=== PATIENT | female | born 1955 | race Caucasian/White ===

== ENCOUNTER 2021-10-19 14:20 | Outpatient (CLI) | payer MEDICARE, SELFPAY ==
[2021-10-23 13:46] LABS: C Reactive Protein* 0.6 mg/dL (0.5-1.0)
== END 2021-10-19 14:21 | disposition home or self-care (01) ==
LOC: LONREF 10-23 13:38
PROVIDERS: PCP Family Medicine; Visit Provider Family Medicine
DX: R51.9 Headache, unspecified (principal); M31.5 Giant cell arteritis with polymyalgia rheumatica; M65.4 Radial styloid tenosynovitis [de Quervain]
CPT/HCPCS: 86140

== ENCOUNTER 2021-11-12 08:05 | Outpatient (CLI) | payer MEDICARE, SELFPAY ==
[2021-11-12 15:33] LABS: Erythrocyte SedimentationRate* 23 mm/hr (2-20)
== END 2021-11-12 08:06 | disposition home or self-care (01) ==
LOC: LONREF 10:05
PROVIDERS: PCP Family Medicine; Visit Provider Family Medicine
DX: M31.6 Other giant cell arteritis (principal)
CPT/HCPCS: 85651

== ENCOUNTER 2021-12-03 16:33 | Outpatient (CLI) | payer MEDICARE, SELFPAY ==
--- OUTSIDE RECORDS SUMMARY | 2021-12-03 11:07 | XMS_ITS | Encounter Summary ---
:1955 Author Organization [facility] Address [address] [place] [address] Care Team Providers Name Role Phone Unavailable Primary Care Provider Unavailable Encounter Details Date Type Department Care Team Description 09/10/2021 Travel Social History Tobacco Use Types Packs/Day Years Used Date Smoking Tobacco: Never Smokeless Tobacco: Never Alcohol Use Standard Drinks/Week Comments Yes 0 (1 standard drink = 0.6 oz pure alcoho l) Sex Assigned at Date Recorded Not on file COVID-19 Exposure Response Date Recorded In the last 10 days, have you been in contact with No / Unsu re 09/10/2021 12:57 PM CDT someone who was confirmed or suspected to have Coronavirus/COVID-19? documented as of this encounter Plan of Treatment Not on filedocumented as of this encounter Visit Diagnoses Not on filedocumented in this encounter
--- OUTSIDE RECORDS SUMMARY | 2021-12-03 11:07 | XMS_ITS | Encounter Summary ---
:1955 Author Organization [facility] Address [address] [place] [address] Care Team Providers Name Role Phone Unknown, Primary Care Provider Unavailable Unknown, Md Unavailable Unavailable Reason for Referral Other (Routine) - Open Specialty Diagnoses / Procedures Referred By Contact Refer red To Contact Diagnoses Giant cell arteritis (HCC) Ruddy Romero MD Procedures AP [facility] MULTIPLE SCLEROSIS [address] [place], [place] [address] Referral ID Status Reason Start Date Expiration Date Visits Requ ested Visits Authorized [id number] Open 04/10/2022 1 1 Reason for Visit Reason Comments Follow up N.O consult follow up. Other (Routine) - Open Specialty Diagnoses / Procedures Referred By Contact Refer red To Contact Diagnoses Giant cell arteritis (HCC) Ruddy Romero MD Procedures AP [place] MULTIPLE SCLEROSIS [address], [place] [address] Referral ID Status Reason Start Date Expiration Date Visits Requ ested Visits Authorized [id number] Open 10/10/2021 1 1 Encounter Details Date Type Department Care Team Description 10/08/2021 Office Visit [facility] Ruddy Romero Giant cell arteritis (HCC) (Primary Dx); Neurology - Trinity Oneal MD Optic neuropathy; [place] ([facility]) [address] Visual field defect; [address] [facility] Polymyalgia rheumatica (HCC); [address] [place], [place] Iron deficiency anemia due t o chronic blood loss; [place] [address] Closed fracture of lower extremity, unsp ecified laterality, initial encounter [id number] Social History Tobacco Use Types Packs/Day Years Used Date Smoking Tobacco: Never Smokeless Tobacco: Never Alcohol Use Standard Drinks/Week Comments Yes 0 (1 standard drink = 0.6 oz pure alcoho l) Sex Assigned at Date Recorded Not on file COVID-19 Exposure Response Date Recorded In the last 10 days, have you been in contact with No / Unsu re 10/08/2021 12:58 PM CDT someone who was confirmed or suspected to have Coronavirus/COVID-19? documented as of this encounter Last Filed Vital Signs Vital Sign Reading Time Taken Comments Blood Pressure 132/62 10/08/2021 2:00 PM CDT Pulse 78 10/08/2021 2:00 PM CDT Temperature - - Respiratory Rate - - Oxygen Saturation - - Inhaled Oxygen Concentration - - Weight - - Height - - Body Mass Index - - documented in this encounter Patient Instructions Patient InstructionsDaoud Domo - 10/08/2021 2:53 PM CDT COVID-19 COVID-19 Vaccination We recommend obtaining a full-dose Moderna shot for future vaccinations. (the Moderna booster is typically a half-dose of compared to the first two vaccinations). BELOW ARE LINKS FOR RESOURCES RELATED TO COVID-19 Monoclonal Antibody Treatment Following a positive COVID-19 infection, monoclonal antibody treatment is recommended. Use of a MS disease modifying therapy qualifies as being immunocompromised. There is a questionnaire that you needto fill out to be eligible for monoclonal antibody treatment. Due to increased demand, you may need to travel to receive treatment. Our clinic has no control over the process and we are unable to administer or schedule monoclonal antibody treatment. [place] Dept of Health: COVID-19 Medication Options (https://www.health.state.[place]/diseases/coronavirus/meds.html) Questionnaire for Monoclonal Antibody Treatment (https://z.[facility]/mnrap) COVID-19 Vaccine/Booster Our office does not have access to vaccines or boosters. We do not administer the vaccinations. Local pharmacies are following CDC guidelines and are not accepting orders from Dr. Romero for an extradose that are more frequent the current CDC recommendations. Find COVID-19 Vaccine Locations in [place] (https://[place].gov/covid19/vaccine/find-vaccine/locations/index.jsp) COVID-19 Testing There are no barrier locations available throughout the formerly [facility], the service is free and doesn't require an appointment. Locations include: [place], [place], [place], [place], [place], [place], [place], [place], [place], [place], [place], [place], [place], [place], [place], [place], [place], [place] and [place] Find COVID-19 Testing Locations in [place] (https://[place].gov/covid19/get-tested/testing-locations/index.jsp) General Recommendations Lifestyle and Diet We recommend regular cardiovascular exercise to the best of your ability and maintaining a healthy weight. We also recommend Mediterranean type diet with plenty of fruits and vegetables, whole grains, vegetable oils, reducing red meat intake, eating fatty fish such as tuna or salmon a couple times perweek, and a low salt diet. For supplementation, we recommend adding Vitamin D, one B complex, and 1-3g of fish oil or flax seed oil daily. Counseled On Exercise & Appropriate Physical Activity Tobacco If you or anyone in your home smokes or uses tobacco, please consider quitting. Call your primary clinic to see how they can help you, or contact [place] Quit Plan at or www.[email or web address].com Counseling on Fall prevention: If you have had a fall in the last year, consider making changes to your home to reduce the risk of falls, such as, removing scatter rugs, clearing your home of clutter, using a night light when up during the night. documented in this encounter Progress Notes Ruddy Romero MD - 10/08/2021 1:45 PM CDT Chief Complaint: Chief Complaint Patient presents with ??? Follow up N.O consult follow up. The patient presents today for N.O. Consult Follow Up - Giant Cell Arteritis HPI Eye Pain 10/08/21: Patient reports minimal symptoms and good control with current prednisone taper protocol No past medical history on file. No past surgical history on file. Current Outpatient Medications: Medication Sig ??? aspirin 81 mg oral chewable tablet Chew 81 mg once daily. ??? atorvastatin (LIPITOR) 20 mg oral tablet Take 20 mg by mouth. at bedtime. ??? cholecalciferol, vitamin D3, 25 mcg, 1000 unit, 25 mcg (1,000 unit) oral tablet Take 25 mcg by mouth once daily. 5000 IU D3 ??? cyanocobalamin, vitamin B-12, 2,000 mcg oral Tab Take by mouth once daily. ??? diphenhydrAMINE (BENADRYL) 25 mg oral capsule Take 25 mg by mouth. ??? furosemide (LASIX) 40 mg oral tablet Take 40 mg by mouth once daily. ??? gatifloxacin (ZYMAR) 0.5 % Opht Drop gatifloxacin 0.5 % eye drops ??? ketorolac 0.5% (ACULAR) 0.5 % Opht ophthalmic (EYE) solution ketorolac 0.5 % eye drops ??? LORazepam (ATIVAN) 1 mg oral tablet lorazepam 1 mg tablet TAKE 1 TABLET BY MOUTH AT BEDTIME NEEDED ??? loteprednol etabonate 0.5% (LOTEMAX) 0.5 % Opht ophthalmic (EYE) suspension loteprednol etabonate 0.5 % eye drops,suspension ??? Magnesium Oxide 250 mg magnesium oral Tab Take 250 mg by mouth Daily. ??? metFORMIN (GLUCOPHAGE) 1,000 mg oral tablet Take 1,000 mg by mouth once daily. ??? multivitamin (CERTAVITE) 18-400 mg-mcg oral tablet Take 1 tablet by mouth once daily. ??? PREDNISONE ORAL Take 17.5 mg by mouth once daily. ??? primidone (MYSOLINE) 50 mg oral tablet every 24 (twenty-four) hours. ??? triamterene-hydrochlorothiazide (DYAZIDE) 37.5-25 mg oral capsule triamterene 37.5 mg-hydrochlorothiazide 25 mg capsule TAKE 1 CAPSULE BY MOUTH DAILY ??? venlafaxine ER (EFFEXOR XR) 150 mg oral extended release tablet 24 HR Take 150 mg by mouth Daily. ??? venlafaxine ER (EFFEXOR XR) 75 mg oral extended release capsule 24 HR venlafaxine ER 75 mg capsule,extended release 24 hr TAKE ONE CAPSULE BY MOUTH DAILY WITH 150MG ??? vit C/E/Zn/coppr/lutein/zeaxan (OCUVITE LUTEIN AND ZEAXANTHIN ORAL) PreserVision AREDS-2 ??? VIT D3-FOLIC TPBM-T4-U1-B12 ORAL Take by mouth. ??? zinc gluconate 50 mg oral tablet Take 50 mg by mouth Daily. Allergies Allergen Reactions ??? Meperidine Nausea ??? Oxycodone-Aspirin Nausea No family history on file. Social History Socioeconomic History ??? Marital status: Spouse name: Not on file ??? Number of children: Not on file ??? Years of education: Not on file ??? Highest education level: Not on file Occupational History ??? Not on file Tobacco Use ??? Smoking status: Never Smoker ??? Smokeless tobacco: Never Used Substance and Sexual Activity ??? Alcohol use: Yes ??? Drug use: Not Currently ??? Sexual activity: Not on file Other Topics Concern ??? Not on file Social History Narrative ??? Not on file Social Determinants of Health Financial Resource Strain: Not on file Food Insecurity: Not on file Transportation Needs: Not on file Physical Activity: Not on file Stress: Not on file Social Connections: Not on file Intimate Partner Violence: Not on file Housing Stability: Not on file Patient Active Problem List Diagnosis ??? Hypertension ??? Temporal headache ??? Polymyalgia rheumatica (HCC) ??? Essential tremor ??? VINCE (generalized anxiety disorder) ??? Insomnia ??? Obesity ??? Thoracic or lumbosacral neuritis or radiculitis, unspecified ??? 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 Giant cell arteritis (HCC) ??? Visual field defect ??? Optic neuropathy ??? Broken leg ROS All others negative. Vitals BP 132/62 (BP Cuff Site: Right arm, BP Cuff Position: Sitting, BP Cuff Size: Regular adult) Pulse 78 Physical Examination Constitutional: Well developed, female in no apparent distress. Neurologic Exam Labs Results for orders placed or performed in visit on 12/17/16 HPV HIGH RISK DNA WITH 16/18 GENOTYPING Specimen: Cervix; Pap Result Value Ref Range HPV HIGH RISK TYPE 16 Negative for HPV type 16. Negative for HPV type 16. HPV HIGH RISK TYPE 18 Negative for HPV type 18. Negative for HPV type 18. HPV OTHER HIGH RISK TYPES Negative for other high risk HPV types. Negative for other high risk HPV types. Assessment/Plan Polymyalgia rheumatica (HCC) Giant cell arteritis is known to be much more common in the presence of polymyalgia rheumatica. Patient took steroids for about 3 years to manage pain symptoms, Patient does not currently notice any daily symptoms. Optic neuropathy OCT 10/08/21: (baseline) 102 microns OD, 83 microns OS - superior nerve damage Macula 10/08/21: signs of early macular degeneration, will continue to monitor. Briefly discussed treatment options of both wet and dry macular degeneration. Visual field defect HVF 10/08/21: slightly diminished field of vision in OS, likely compensated by OD Giant cell arteritis (HCC) Patient presents today for NO consult follow up. Visual field available for review. Patient is currently on 17.5 mg of prednisone qd, onset one week. Most recent sed rate obtained today with levels of 19, indicating good inflammation control. Discussed tapering and monitoring protocol, plan to draw labs 3 weeks after adjusting does down to assess sed rates and CRP levels. Continue taper of 2.5 mg decrease until 15 mg, pending continued sed rate control. After 15 mg, will plan to trial dosing on an every other day dosing schedule, with alternating doses - down 2.5 mg each taper. This will allow adrenal gland function to build in efficacy. Outlined goal to evaluate for the lowest amount of steroids we will need, to continue to manage sed rate - while attempting to reactivate adrenal gland function. We would like to see sed rates continuearound 20-30. When we reach 15 mg of prednisone, explained that side effects from steroids will become gradually less noticeable. NO labs reviewed, essentially normal OCT and HVF. There were early signs that may indicate macular degeneration. Will continue to monitor this. At this time, patient will contact the clinic with new or worsening symptoms that would warrant an additional visit. Patient can pursue virtual visits in the future. Patient instructed to contact with clinic with any additional concerns or guidance on dosing. ?? Plan: - Continue prednisone 17.5 mg daily - with taper as planned, pending sed rate - Monitor CRP, ESR, SPEP and IL-6 (if covered), 3 weeks after every prednisone dose change - MD follow up in 6 months Broken leg Explained that chronic use of steroids will impact healing and recovery time for acute fractures. Time spent on the date of the encounter consisted of activities before, during, and after the encounter as described above with a total time of 45 minutes. I, Franklin Oliveros, am serving as a trained medical appointment clerk to document services personally performed byRuddy Romero MD based on the provider's statements to me. I, Ruddy Romero MD, was physically present and have reviewed and verified the accuracy of this note documented by Franklin Oliveros. Ruddy Romero MD documented in this encounter Miscellaneous Notes Assessment & Plan Note - Franklin Oliveros - 10/08/2021 2:43 PM CDTAssociated Problem(s): Broken leg Explained that chronic use of steroids will impact healing and recovery time for acute fractures. Assessment & Plan Note - Franklin Oliveros - 10/08/2021 2:37 PM CDTAssociated Problem(s): Giant cell arteritis (HCC) Patient presents today for NO consult follow up. Visual field available for review. Patient is currently on 17.5 mg of prednisone qd, onset one week. Most recent sed rate obtained today with levels of 19, indicating good inflammation control. Discussed tapering and monitoring protocol, plan to draw labs 3 weeks after adjusting does down to assess sed rates and CRP levels. Continue taper of 2.5 mg decrease until 15 mg, pending continued sed rate control. After 15 mg, will plan to trial dosing on an every other day dosing schedule, with alternating doses - down 2.5 mg each taper. This will allow adrenal gland function to build in efficacy. Outlined goal to evaluate for the lowest amount of steroids we will need, to continue to manage sed rate - while attempting to reactivate adrenal gland function. We would like to see sed rates continuearound 20-30. When we reach 15 mg of prednisone, explained that side effects from steroids will become gradually less noticeable. NO labs reviewed, essentially normal OCT and HVF. There were early signs that may indicate macular degeneration. Will continue to monitor this. At this time, patient will contact the clinic with new or worsening symptoms that would warrant an additional visit. Patient can pursue virtual visits in the future. Patient instructed to contact with clinic with any additional concerns or guidance on dosing. ?? Plan: - Continue prednisone 17.5 mg daily - with taper as planned, pending sed rate - Monitor CRP, ESR, SPEP and IL-6 (if covered), 3 weeks after every prednisone dose change - MD follow up in 6 months Assessment & Plan Note - Franklin Oliveros - 10/08/2021 2:22 PM CDTAssociated Problem(s): Visual field defect HVF 10/08/21: slightly diminished field of vision in OS, likely compensated by OD Assessment & Plan Note - Franklin Oliveros - 10/08/2021 2:21 PM CDTAssociated Problem(s): Optic neuropathy OCT 10/08/21: (baseline) 102 microns OD, 83 microns OS - superior nerve damage Macula 10/08/21: signs of early macular degeneration, will continue to monitor. Briefly discussed treatment options of both wet and dry macular degeneration. Assessment & Plan Note - Franklin Oliveros - 10/08/2021 2:12 PM CDTAssociated Problem(s): Polymyalgia rheumatica (HCC) Giant cell arteritis is known to be much more common in the presence of polymyalgia rheumatica. Patient took steroids for about 3 years to manage pain symptoms, Patient does not currently notice any daily symptoms. documented in this encounter Plan of Treatment Scheduled Orders Name Type Priority Associated Diagnoses Order S chedule CBC/DIFFERENTIAL WITH Lab Routine Giant cell arteriti s Twice a Year for 2 PLATELET ([facility]) (HCC) Occurrences starting Iron deficiency anemia 10/08 until due to chronic blood 023 loss documented as of this encounter Visit Diagnoses Diagnosis Giant cell arteritis (HCC) - Primary Giant cell arteritis Optic neuropathy Other optic neuritis Visual field defect Visual field defect, unspecified Polymyalgia rheumatica (HCC) Polymyalgia rheumatica Iron deficiency anemia due to chronic bl ood loss Iron deficiency anemia secondary to bloo d loss (chronic) Closed fracture of lower extremity, unsp ecified laterality, initial encounter documented in this encounter Care Teams Tableau Developer Relationship Specialty Start Date End Date Unknown, PCP - General 09/21/21 NO ADDRESS/PHONE/FAX AFFILIATED Unknown, PCP - Primary Care Clinic 09/21/21 NO ADDRESS/PHONE/FAX AFFILIATED documented as of this encounter
--- OUTSIDE RECORDS SUMMARY | 2021-12-03 11:07 | XMS_ITS | Encounter Summary ---
:1955 Author Organization [facility] Address [address] [place] [id number] Care Team Providers Name Role Phone Unknown, Primary Care Provider Unavailable Unknown, Unavailable Unavailable Encounter Details Date Type Department Care Team Description 10/08/2021 Travel Social History Tobacco Use Types Packs/Day [...] Diagnoses Not on filedocumented in this encounter Care Teams Socket Welder Helper Relationship Specialty Start Date End Date Unknown, PCP - General 09/21/21 NO ADDRESS/PHONE/FAX AFFILIATED Unknown, PCP - Primary Care Clinic 09/21/21 NO ADDRESS/PHONE/FAX AFFILIATED documented as of this encounter
--- OUTSIDE RECORDS SUMMARY | 2021-12-03 11:07 | XMS_ITS | Clinical Summary ---
:1955 Author Organization [facility] Address [address] [place] [address] Care Team Providers Name Role Phone Elsewhere, Pcp Primary Care Provider Unavailable Source Comments Patient records contain information from all sites at [facility]. For routine questions regarding patient records, call [phone] during business hours, M-F 8:00 AM - 5:00 PM Central Time. Record requests for emergency care only can be directed to [phone] at any time.[facility] Allergies No known active allergies Medications Medication Sig Dispensed Refills Start Date End Date Status aspirin [address] tablet Take 81 mg by 0 06/30/2015 Active mouth daily. cholecalciferol Take 1 tablet by 0 06/30/2015 Active (VITAMIN D3) 50 mcg mouth daily. (2,000 Unit) tablet diphenhydrAMINE Take 50 mg by 0 Active (BenadryL) 25 mg mouth. capsule diphenhydrAMINE Take 2 capsules 0 03/31/2015 Active (BENADRYL) 25 mg by mouth daily. capsule multivitamin with Take 1 tablet by 0 06/30/2015 Active minerals capsule mouth daily. venlafaxine HCl Take 75 mg by 0 03/31/2015 Active (VENLAFAXINE ORAL) mouth daily. propranoloL (INDERAL Take 1 capsule by 0 05/05/2016 Active LA) 120 mg 24 hr mouth daily. capsule zinc gluconate 50 mg Take 50 mg by 0 Active tablet mouth daily with breakfast. magnesium oxide Take 250 mg by 0 Active (MAG-OX) 250 mg of mouth daily. magnesium tablet SUMAtriptan (IMITREX) Take 1 tablet (50 10 tablet 0 11/22/2021 Active 50 mg tablet mg total) by mouth as needed for migraine. May repeat dose once in 2 hours if migraine is unresolved. Do not exceed 200 mg in 24 hours. ondansetron ODT Dissolve 1 tablet 10 tablet 0 11/22/2021 Active (ZOFRAN-ODT) 4 mg (4 mg total) in disintegrating tablet the mouth every 6 (six) hours as needed for nausea or vomiting. atorvastatin (LIPITOR) Take 20 mg by 0 07/04/2021 Active 20 mg tablet mouth at bedtime. furosemide (LASIX) 40 Take 40 mg by 0 12/12/2020 Active mg tablet mouth daily. metFORMIN (GLUCOPHAGE) Take 1,000 mg by 0 10/18/2020 Active 1,000 mg tablet mouth daily. predniSONE (DELTASONE) Take 40 mg by 0 11/20/2021 Active 20 mg tablet mouth daily. 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 OCT 10/08/21: (baseline) 102 microns OD, 83 m icrons OS - superior nerve damage Macula 10/08/21: signs of early macular degenera tion, will continue to monitor. Briefly discussed treatment options of both wet and dry macular degeneration. 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 Formatting of this note is different fro m the original. Discussed etiology of disease and risks of GCA. Headaches caused by GCA are not often described by patients as the worst of their life. There is also a risk of GCA negatively impacting the optic nerve . Main concern of GCA is irreversible lo ss of vision. Although her biopsy was negative, testing was inadequate as they did not retrieve a sample large enough for proper analysis. At her ED visit, sed ra te was elevated yet normal when correcte d for age. She was also observed to be anemic as well which can contribute to the elevation of the sed rate. CRP is also slightly elevated. In addition, use of st eroids will mask the symptoms of GCA and it will be difficult to assess and formally diagnose GCA at this time. However we will need to presume that this is GCA and treat her as such. ?? She had started a prednisone taper start ing at 60 mg on 07/18/21 and is now on 25 mg. I do not agree with the rate of her taper and will have the patient stay on 25 mg for a longer time. Will monitor labs during her taper, observing for any estefania vations in sed rate and CRP, acute phase reactants in serum protein electrophoresis, and close monitoring of interleukin 6. Labs are appropriate 2 weeks after eac h change in dose of prednisone. At aroun d 20 or 15 mg, will then consider alternating tapering days by 2.5 mg to ease in her adrenal gland production. Patient presents today for NO consult fo llow up. Visual field available for review. Patient is currently on 17.5 mg of prednisone qd, onset one week. Most recent sed rate obtained today with levels of 1 9, indicating good inflammation control. Discussed tapering and monitoring protocol, plan to draw labs 3 weeks after adjusting does down to assess sed rates and CRP levels. Continue taper of 2.5 mg decr ease until 15 mg, pending continued sed rate control. After 15 mg, will plan to trial dosing on an every other day dosing schedule, with alternating doses - down 2.5 each taper. This will allow adrenal gland function to build in efficacy. Outlined goal to evaluate for the lowest amount of steroids we will need, to continue to manage sed rate - while attempting to reactivate adrenal gland function. We would like to see sed rates continue around 20-30. When we reach 15 mg of pre dnisone, explained that side effects from steroids will become gradually less noticeable. NO labs reviewed, essentially normal OCT and HVF. There were early signs that may indicate macular degeneration. Will continue to monitor this. At this time, patient will contact the bryant miller with new or worsening symptoms that would warrant an additional visit. Patient can pursue virtual visits in the future. Patient instructed to contact with bryant miller with any additional concerns or gu idance on dosing. ?? Plan: - Continue prednisone 17.5 mg daily - th taper as planned, pending sed rate - Monitor CRP, ESR, SPEP and IL-6 (if co antonino), 3 weeks after every prednisone dose change - MD follow up in 6 months Last Assessment & Plan: Formatting of this note is different fro m the original. Patient presents today for NO consult fo llow up. Visual field available for review. Patient is currently on 17.5 mg of prednisone qd, onset one week. Most recent sed rate obtained today with levels of 1 9, indicating good inflammation control. Discussed tapering and monitoring protocol, plan to draw labs 3 weeks after adjusting does down to assess sed rates and CRP levels. Continue taper of 2.5 mg decr ease until 15 mg, pending continued sed rate [...] We would like to see sed rates continue around 20-30. When we reach 15 mg of pre dnisone, explained that side effects from steroids will become gradually less noticeable. NO labs reviewed, essentially normal OCT and HVF. There were early signs that may indicate macular degeneration. Will continue to monitor this. At this time, patient will contact the bryant miller with new or worsening symptoms that would warrant an additional visit. Patient can pursue virtual visits in the future. Patient instructed to contact with bryant miller with any additional concerns or gu idance on dosing. ?? Plan: - Continue prednisone 17.5 mg daily - wi th taper as planned, pending sed rate - Monitor CRP, ESR, SPEP and IL-6 (if co antonino), 3 weeks after every prednisone dose change - MD follow up in 6 months Tremor Essential 07/20/2021 COVID-19 Infection 05/15/2020 Polymyalgia Rheumatica 03/31/2015 Hypertension 10/15/2013 Overview: Hypertension (HTN) Chronic Formatting of this note might be differe nt from the original. Formatting of this note might be differe nt from the original. Hypertension (HTN) Chronic Anxiety Generalized Disorder 12/08/2011 Insomnia 08/22/2009 Obesity Unspecified 07/12/2008 Encounters Date Type Specialty Care Team Description 11/21/2021 - Emergency Emergency Medicine Chiquita Hawley, Headache Unspecified 11/22/2021 D.O. (Primary Dx) from Last 3 Months Immunizations Name Administration Dates Next Due PPSV23 11/05/2013 Tdap 09/24/2013, 08/22/2009 Social History Tobacco Use Types Packs/Day Years Used Date Smoking Tobacco: Never Sex Assigned at Date Recorded Not on file Last Filed Vital Signs Vital Sign Reading Time Taken Comments Blood Pressure 121/68 11/22/2021 3:00 AM CDT Pulse 77 02/02/2021 2:47 PM [employer] Temperature 36.3 ??C (97.3 ??F) 11/22/2021 12:45 AM CDT Respiratory Rate 12 11/22/2021 3:00 AM CDT Oxygen Saturation 98% 11/22/2021 1:00 AM CDT Inhaled Oxygen Concentration - - Weight 105 kg (232 lb 9.4 oz) 11/21/2021 11:34 PM CDT Height 177.8 cm (5' 10) 11/21/2021 11:34 PM CDT Body Mass Index 33.37 11/21/2021 11:34 PM CDT Plan of Treatment Health Maintenance Due Date Last Done Comments Bone Density Scan 1955 (Osteoporosis Screen) CT Colonography 1955 Cologuard 1955 FIT 1955 HIV Screening 1955 Mammogram 10/15/2014 10/15/2013, 09/25/2012, 08/13/2011 Pneumococcal vaccine (65+ 11/05/2014 11/05/2013 years) (2 - PCV) Potassium Level 11/05/2014 11/05/2013 Sodium Level 11/05/2014 11/05/2013 Cervical Cancer Screening 10/15/2016 10/15/2013 Creatinine Level 04/19/2017 04/19/2016, 12/12/2015, 08/22/2015, Additional history exists Fasting Glucose for 03/30/2018 03/30/2015, 02/03/2015, Diabetes Screening 11/05/2013, Additional history exists Depression Screening 03/14/2021 (Annual PHQ-2) COVID-19 Vaccine (4 - 08/31/2021 07/06/2021, 08/28/2020, Booster for Moderna series) 07/29/2020 Fall Risk Screen (Annual) 2021 Influenza Vaccine (#1) 2021 01/23/2021, 01/25/2020, 04/08/2019, Additional history exists Office Visit for Blood 02/02/2022 02/02/2021 Pressure Check / Re-check DTaP,Tdap,and Td Vaccines 09/25/2023 09/24/2013, 08/22/2009 (3 - Td or Tdap) Colonoscopy 09/09/2024 09/09/2014 Colorectal Cancer Screening 09/09/2024 Hepatitis C Screening Completed 03/31/2015 Zoster Vaccines Completed 01/16/2018, 10/03/2017 HPV Vaccines Aged Out No longer eligib le based on patient 's age to complete this topic Procedures Procedure Name Priority Date/Time Associated Diagnosis Comme nts C-REACTIVE PROTEIN STAT 11/22/2021 2:07 AM Res ults for this (CRP), S/P CDT procedure are i n the results section. from Last 3 Months Results CRP (C-Reactive Protein) (11/22/2021 2:07 AM CDT) P athologist Signature C-Reactive <3.0 <=8.0 mg/L 11/22/2021 NPRG Protein (CRP), 2:53 AM CDT P Specimen Anatomical Collection Method Collection Time Receive d Time (Source) Location / / Volume Laterality Blood (Blood, 11/22/2021 2:07 AM 11/23/19 2:09 Venous) CDT AM CDT Chiquita Hawley D.O. LAB BLOOD ADD-ON Performing Organization Address City/State/ZIP Code Phon e Number [facility] [address] [place], [place] [address] [facility] 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
--- OUTSIDE RECORDS SUMMARY | 2021-12-03 11:07 | XMS_ITS | Encounter Summary ---
:1955 Author Organization [facility] Address [address] [place] [address] Care Team Providers Name Role Phone Unknown, Primary Care Provider Unavailable Unknown, Md Unavailable Unavailable Reason for Visit Reason Comments Eye Exam Encounter Details Date Type Department Care Team Description 09/10/2021 Ophth Exam [facility] Partial optic atrophy Neurology - [facility] Ce nter of left eye (Primary Center ([facility]) [phone] Dx) [address] [facility] [address] (Work) [place], [place] [phone] (Fax) [phone] Social History Tobacco Use Types Packs/Day Years [...] have Coronavirus/COVID-19? 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
--- OUTSIDE RECORDS SUMMARY | 2021-12-03 11:07 | XMS_ITS | Encounter Summary ---
:1955 Author Organization [facility] Address [address] [place] [address] Care Team Providers Name Role Phone Unavailable Primary Care Provider Unavailable Reason for Referral Other (Routine) - Open Specialty Diagnoses / Procedures Referred By Contact Refer red To Contact Diagnoses Giant cell arteritis (HCC) Ruddy Romero MD Procedures [facility] MULTIPLE SCLEROSIS [address] [place], [place] [address] Referral ID Status Reason Start Date Expiration Date Visits Requ ested Visits Authorized [id number] Open 10/10/2021 1 1 ther (Routine) - Closed Specialty Diagnoses / Procedures Referred By Contact Refer red To Contact Diagnoses Giant cell arteritis (HCC) Ruddy Romero MD Procedures [facility] EYE TEST [address] [place], [place] [address] Referral ID Status Reason Start Date Expiration Date Visits Requ ested Visits Authorized [id number] Closed 09/10/2021 1 1 Reason for Visit Reason Comments Consultation NO Consult: Giant cell arter itisNo symptoms today, previously felt severe headaches locali zed at the mandaeism with associated nausea Fall risk assessment Fall assessment: Patient has had no falls in calendar year Encounter Details Date Type Department Care Team Description 09/10/2021 Office Visit [facility] Ruddy Romero MD [address] [place], [place] [id number] Giant cell arteritis (HCC) (Primary Dx); [facility] - [facility] Visual field defect Center ([facility]) [address] [place] [address] Social History Tobacco Use Types Packs/Day Years Used Date Smoking Tobacco: Never Smokeless Tobacco: Never Tobacco Cessation: Counseling Given: No Alcohol Use Standard Drinks/Week Comments Yes 0 [...] Sign Reading Time Taken Comments Blood Pressure 122/60 09/10/2021 2:04 PM CDT Pulse 68 09/10/2021 2:04 PM CDT Temperature - - Respiratory Rate - - Oxygen Saturation - - Inhaled Oxygen Concentration - - Weight 99.8 kg (220 lb) 09/10/2021 2:04 PM CDT Height 177.8 cm (5' 10) 09/10/2021 2:04 PM CDT Body Mass Index 31.57 09/10/2021 2:04 PM CDT documented in this encounter Progress Notes Ruddy Romero MD - 09/10/2021 1:15 PM CDT Chief Complaint: Chief Complaint Patient presents with Consultation NO Consult: Giant cell arteritis No symptoms today, previously felt severe headaches localized at the mandaeism with associated nausea Fall risk assessment Fall assessment: Patient has had no falls in calendar year The patient presents today for N.O. Consult. HPI On 07/18/21 the patient presented to the ED with severe intermittent right sided occipital extending to bitemporal headaches that had lasted 3 weeks, and vision changes in OD that had lasted for 1 week. Past medical history significant for giant cell arteritis, polymyalgia rheumatica, hypertension. She has a history of migraines, however during only. Other symptoms included nausea, light sensitivity. Symptoms had increased in frequency and was constant 1-2 days prior to her ED visit. Sed rate elevated MR Angio and MRI Brain obtained, and other than observation of lesions community health representative of mild chronic ischemic microvascular disease, the studies were unremarkable. The patient started on prednisone 60 mg daily after her ED visit, now tapered down and she is taking 25 mg daily. Today she is asymptomatic. No past medical history on file. No past surgical history on file. Current Outpatient Medications: Medication Sig aspirin 81 mg oral chewable tablet Chew 81 mg once daily. atorvastatin (LIPITOR) 20 mg oral tablet Take 20 mg by mouth. at bedtime. cholecalciferol, vitamin D3, 25 mcg, 1000 unit, 25 mcg (1,000 unit) oral tablet Take 25 mcg by mouth once daily. 5000 IU D3 cyanocobalamin, vitamin B-12, 2,000 mcg oral Tab Take by mouth once daily. diphenhydrAMINE (BENADRYL) 25 mg oral capsule Take 25 mg by mouth. furosemide (LASIX) 40 mg oral tablet Take 40 mg by mouth once daily. gatifloxacin (ZYMAR) 0.5 % Opht Drop gatifloxacin 0.5 % eye drops ketorolac 0.5% (ACULAR) 0.5 % Opht ophthalmic (EYE) solution ketorolac 0.5 % eye drops LORazepam (ATIVAN) 1 mg oral tablet lorazepam 1 mg tablet TAKE 1 TABLET BY MOUTH AT BEDTIME NEEDED loteprednol etabonate 0.5% (LOTEMAX) 0.5 % Opht ophthalmic (EYE) suspension loteprednol etabonate 0.5 % eye drops,suspension Magnesium Oxide 250 mg magnesium oral Tab Take 250 mg by mouth Daily. metFORMIN (GLUCOPHAGE) 1,000 mg oral tablet Take 1,000 mg by mouth once daily. multivitamin (CERTAVITE) 18-400 mg-mcg oral tablet Take 1 tablet by mouth once daily. PREDNISONE ORAL Take 17.5 mg by mouth once daily. primidone (MYSOLINE) 50 mg oral tablet every 24 (twenty-four) hours. triamterene-hydrochlorothiazide (DYAZIDE) 37.5-25 mg oral capsule triamterene 37.5 mg-hydrochlorothiazide 25 mg capsule TAKE 1 CAPSULE BY MOUTH DAILY venlafaxine ER (EFFEXOR XR) 150 mg oral extended release tablet 24 HR Take 150 mg by mouth Daily. venlafaxine ER (EFFEXOR XR) 75 mg oral extended release capsule 24 HR venlafaxine ER 75 mg capsule,extended release 24 hr TAKE ONE CAPSULE BY MOUTH DAILY WITH 150MG vit C/E/Zn/coppr/lutein/zeaxan (OCUVITE LUTEIN AND ZEAXANTHIN ORAL) PreserVision AREDS-2 VIT D3-FOLIC DLVO-Q9-N9-B12 ORAL Take by mouth. zinc gluconate 50 mg oral tablet Take 50 mg by mouth Daily. Allergies Allergen Reactions Meperidine Nausea Oxycodone-Aspirin Nausea No family history on file. Social History Socioeconomic History Marital status: Spouse name: Not on file Number of children: Not on file Years of education: Not on file Highest education level: Not on file Occupational History Not on file Tobacco Use Smoking status: Never Smokeless tobacco: Never Substance and Sexual Activity Alcohol use: Yes Drug use: Not Currently Sexual activity: Not on file Other Topics Concern Not on file Social History Narrative Not on file Social Determinants of Health Financial Resource Strain: Not on file Food Insecurity: Not on file Transportation Needs: Not on file Physical Activity: Not on file Stress: Not on file Social Connections: Not on file Intimate Partner Violence: Not on file Housing Stability: Not on file Patient Active Problem List Diagnosis Hypertension Temporal headache Polymyalgia rheumatica (HCC) Essential tremor VINCE (generalized anxiety disorder) Insomnia Obesity Thoracic or lumbosacral neuritis or radiculitis, unspecified 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 Vitals BP 122/60 Pulse 68 Ht 5' 10 (1.778 m) Wt 99.8 kg (220 lb) BMI 31.57 kg/m?? Physical Examination Constitutional: Well developed, female in no apparent distress. Neurologic Exam Mental Status Oriented to person, place, and time. Speech: speech is normal Cranial Nerves CN III, IV, Right pupil: Size: 5 mm. Shape: regular. Reactivity: brisk. Consensual response: intact. Left pupil: Size: 5 mm. Shape: regular. Reactivity: brisk. Consensual response: intact. CN V Facial sensation intact. CN VII Facial expression full, symmetric. CN IX, X Palate: symmetric Right gag reflex: normal CN XII Tongue: not atrophic Fasciculations: absent Tongue deviation: none Visual Acuity - OD: 20/20 - OS: 20/25 Tonopen - OD/OS: 14/14 Confrontation Visual Field - Confrontation visual field full to face and finger count - Central red saturation intact - Extraoccular motility, ductions and versions, smooth pursuit, and saccades normal Slit Lamp Exam - OU: Anterior chamber deep and quiet, lens clear, conjunctiva clear, cornea clear, macula normal, no exudates, no pallor, no hemorrhage, no edema. Diminished tear film. Unable to assess lids/lashes. Superior corneal neovascularization. Pseudophakic lenses. - OD: 0.2 cup, optic nerve normal in appearance. - OS: Unable to assess optic nerve. Labs Assessment/Plan Visual field defect Visual Field Assessment 07/23/21: OD inferior temporal defect. OS question lens rim artifact vs inferior arcuate defect. Reliability indices normal. Giant cell arteritis (HCC) Assessment: Discussed etiology of disease and risks of GCA. Headaches caused by GCA are not often described by patients as the worst of their life. There is also a risk of GCA negatively impacting the optic nerve. Main concern of GCA is irreversible loss of vision. Although her biopsy was negative, testing was inadequate as they did not retrieve a sample large enough for proper analysis. At her ED visit, sed rate was elevated yet normal when corrected for age. She was also observed to be anemic as well which can contribute to the elevation of the sed rate. CRP is also slightly elevated. In addition, use of steroids will mask the symptoms of GCA and it will be difficult to assess and formally diagnose GCA atthis time. However we will need to presume that this is GCA and treat her as such. She had started a prednisone taper starting at 60 mg on 07/18/21 and is now on 25 mg. I do not agree with the rate of her taper and will have the patient stay on 25 mg for a longer time. Will monitor labs during her taper, observing for any elevations in sed rate and CRP, acute phase reactants in serum protein electrophoresis, and close monitoring of interleukin 6. Labs are appropriate 2 weeks after each change in dose of prednisone. At around 20 or 15 mg, will then consider alternating tapering days by 2.5 mg to ease in her adrenal gland production. 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 Plan: - Continue prednisone 25 mg daily - Monitor CRP, ESR, SPEP and IL-6 (if covered), 2 weeks after every prednisone dose change - Baseline OCT now - HVF in 1 month Time spent on the date of the encounter consisted of activities before, during, and after the encounter as described above with a total time of 60 minutes. I, Duane Mayers, am serving as a trained medical tech to document services personally performed byRuddy Romero MD based on the provider's statements to me. I, Ruddy Romero MD, was physically present and have reviewed and verified the accuracy of this note documented by Duane Mayers. Ruddy Romero MD documented in this encounter Miscellaneous Notes Assessment & Plan Note - Duane Mayers - 09/10/2021 2:14 PM CDTAssociated Problem(s): Giant cell arteritis (HCC) Assessment: Discussed etiology of disease and risks of GCA. Headaches caused by GCA are not often described by patients as the worst of their life. There is also a risk of GCA negatively impacting the optic nerve. Main concern of GCA is irreversible loss of vision. Although her biopsy was negative, testing was inadequate as they did not retrieve a sample large enough for proper analysis. At her ED visit, sed rate was elevated yet normal when corrected for age. She was also observed to be anemic as well which can contribute to the elevation of the sed rate. CRP is also slightly elevated. In addition, use of steroids will mask the symptoms of GCA and it will be difficult to assess and formally diagnose GCA atthis time. However we will need to presume that this is GCA and treat her as such. She had started a prednisone taper starting at 60 mg on 07/18/21 and is now on 25 mg. I do not agree with the rate of her taper and will have the patient stay on 25 mg for a longer time. Will monitor labs during her taper, observing for any elevations in sed rate and CRP, acute phase reactants in serum protein electrophoresis, and close monitoring of interleukin 6. Labs are appropriate 2 weeks after each change in dose of prednisone. At around 20 or 15 mg, will then consider alternating tapering days by 2.5 mg to ease in her adrenal gland production. 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 Plan: - Continue prednisone 25 mg daily - Monitor CRP, ESR, SPEP and IL-6 (if covered), 2 weeks after every prednisone dose change - Baseline OCT now - HVF in 1 month Assessment & Plan Note - Duane Mayers - 09/10/2021 2:13 PM CDTAssociated Problem(s): Visual field defect Visual Field Assessment 07/23/21: OD inferior temporal defect. OS question lens rim artifact vs inferior arcuate defect. Reliability indices normal. documented in this encounter Plan of Treatment Scheduled Orders Name Type Priority Associated Diagnoses Order S chedule INTERLEUKIN-6, SERUM Lab Routine Giant cell arteritis Every 2 Weeks for 26 ([facility]) ([facility]) Occurrences sta rting 09/10/2021 unti l 09/10/2022 SEDIMENTATION RATE - Lab Routine Giant cell arteritis Every 2 Weeks for 26 [place] ([facility]) ([facility]) Occurre nces starting 09/10/2021 unti l 09/10/2022 C-REACTIVE PROTEIN, QUANT Lab Routine Giant cell alisha ritis Every 2 Weeks for 26 ([facility]) ([facility]) Occurrences sta rting 09/10/2021 unti l 09/10/2022 PROTEIN ELECTROPHORESIS, Lab Routine Giant cell arter itis Every 2 Weeks for 26 SERUM ([facility]) ([facility]) Occurrences starting 09/10/2021 unti l 09/10/2022 documented as of this encounter Visit Diagnoses Diagnosis Giant cell arteritis (HCC) - Primary Giant cell arteritis Visual field defect Visual field defect, unspecified documented in this encounter
--- OUTSIDE RECORDS SUMMARY | 2021-12-03 11:07 | XMS_ITS | Encounter Summary ---
:1955 Author Organization [facility] Address [address] [place] [address] Care Team Providers Name Role Phone Unknown, Primary Care Provider Unavailable Unknown, Md Unavailable Unavailable Reason for Visit Reason Comments Eye Exam Other (Routine) - Closed Specialty Diagnoses / Procedures Referred By Contact Refer red To Contact Diagnoses Giant cell arteritis (HCC) Ruddy Romero MD Procedures [facility] TEST [address] [place] [place], [place] [address] Referral ID Status Reason Start Date Expiration Date Visits Requ ested Visits Authorized [id number] Closed 09/10/2021 1 1 Encounter Details Date Type Department Care Team Description 10/08/2021 Ophth Exam [facility] Mina Arcuate scotoma, left (Primary Dx); Neurology - [facility] Giant cell arteritis (HCC) Center ([facility]) [phone] (Work) [place], [place] [phone] [address] (Fax) [phone] Social History Tobacco Use Types Packs/Day Years [...] this encounter Progress Notes Juli Mina - 10/08/2021 1:00 PM CDT Progress Note Eye Test HVF- raw data found in [facility] documented in this encounter Plan of Treatment Not on filedocumented as of this encounter Visit Diagnoses Diagnosis Arcuate scotoma, left - Primary Giant cell arteritis (HCC) Giant cell arteritis documented in this encounter Care Teams Museum Security Chief Relationship Specialty Start Date End Date Unknown, PCP - General 09/21/21 NO ADDRESS/PHONE/FAX AFFILIATED Unknown, PCP - Primary Care Clinic 09/21/21 NO ADDRESS/PHONE/FAX AFFILIATED documented as of this encounter
--- OUTSIDE RECORDS SUMMARY | 2021-12-03 11:07 | XMS_ITS | Clinical Summary ---
:1955 Author Organization [facility] Address [address] [place] [address] Care Team Providers Name Role Phone Unknown, Md Primary Care Provider Unavailable Unknown, Md Unavailable Unavailable Allergies Active Allergy Reactions Severity Noted Date Comments Meperidine Nausea 12/08/2004 Oxycodone-Aspirin Nausea 12/08/2004 Medications Medication Sig Dispensed Refills Start Date End Date Status atorvastatin (LIPITOR) Take 20 mg by 0 07/04/2021 Active 20 mg oral tablet mouth. at bedtime. diphenhydrAMINE Take 25 mg by 0 Active (BENADRYL) 25 mg oral mouth. capsule furosemide (LASIX) 40 Take 40 mg by 0 06/15/2021 Active mg oral tablet mouth once daily. gatifloxacin (ZYMAR) gatifloxacin 0.5 % 0 Active 0.5 % Opht Drop eye drops ketorolac 0.5% ketorolac 0.5 % 0 Active (ACULAR) 0.5 % Opht eye drops ophthalmic (EYE) solution LORazepam (ATIVAN) 1 lorazepam 1 mg tablet 0 Active mg oral tablet TAKE 1 TABLET BY MOUTH AT BEDTIME NEEDED loteprednol etabonate loteprednol 0 Active 0.5% (LOTEMAX) 0.5 % etabonate 0.5 % Opht ophthalmic (EYE) eye suspension drops,suspension Magnesium Oxide 250 mg Take 250 mg by 0 Active magnesium oral Tab mouth Daily. metFORMIN (GLUCOPHAGE) Take 1,000 mg by 0 08/05/2021 Active 1,000 mg oral tablet mouth once daily. primidone (MYSOLINE) every 24 0 Active 50 mg oral tablet (twenty-four) hours. triamterene-hydrochlor triamterene 37.5 mg-hydrochlorothiazide 25 m g capsule 0 10/03/2020 Active othiazide (DYAZIDE) TAKE 1 CAPSULE BY MOUTH DAILY 37.5-25 mg oral capsule venlafaxine ER Take 150 mg by 0 Active (EFFEXOR XR) 150 mg mouth Daily. oral extended release tablet 24 HR venlafaxine ER venlafaxine ER 75 mg capsule,extended release 24 hr 0 10/18/2020 Active (EFFEXOR XR) 75 mg TAKE ONE CAPSULE BY MOUTH DAILY WITH 150MG oral extended release capsule 24 HR vit PreserVision 0 Active C/E/Zn/coppr/lutein/ze AREDS-2 axan (OCUVITE LUTEIN AND ZEAXANTHIN ORAL) zinc gluconate 50 mg Take 50 mg by 0 Active oral tablet mouth Daily. aspirin 81 mg oral Chew 81 mg once 0 Active chewable tablet daily. cyanocobalamin, Take by mouth once 0 Active vitamin B-12, 2,000 daily. mcg oral Tab VIT D3-FOLIC Take by mouth. 0 Ac tive EQDV-G3-G6-B12 ORAL cholecalciferol, Take 25 mcg by 0 Active vitamin D3, 25 mcg, mouth once daily. 1000 unit, 25 mcg 5000 IU D3 (1,000 unit) oral tablet multivitamin Take 1 tablet by 0 Active (CERTAVITE) 18-400 mouth once daily. mg-mcg oral tablet PREDNISONE ORAL Take 17.5 mg by 0 Active mouth once daily. Active Problems Problem Noted Date Optic neuropathy 10/08/2021 Last Assessment & Plan: Formatting of is note might be different from the original. OCT 10/08/21: (baseline) 102 microns OD, 83 m icrons OS - superior nerve damage Macula 10/08/21: signs of early macular degenera tion, will continue to monitor. Briefly discussed treatment options of both wet and dry macular degeneration. Broken leg 10/08/2021 Last Assessment & Plan: Formatting of is note might be different from the original. Explained that chronic use of steroids w ill impact healing and recovery time for acute fractures. 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 treated at [place] Giant cell arteritis 09/10/2021 Overview: Formatting of this note is dif ferent from the original. Discussed etiology of disease and [...] At this time, patient will contact the c angela with new or worsening symptoms that would [...] in 6 months Last Assessment & Plan: Patient presents today for NO consult fo [...] At this time, patient will contact the c linic with new or worsening symptoms that would [...] - MD follow up in 6 months Visual field defect 09/10/2021 Last Assessment & Plan: Formatting of th is note might be different from the original. HVF 10/08/21: slightly diminished field of vi dulce maria in OS, likely compensated by OD Essential tremor 07/20/2021 Polymyalgia rheumatica 03/31/2015 Last Assessment & Plan: Formatting of th is note might be different from the original. Giant cell arteritis is known to be much more common in the presence of polymyalgia rheumatica. Patient took steroids for about 3 years to manage pain symptoms, Patient does not currently notice any daily symptoms. Hypertension 10/15/2013 Overview: Formatting of this note might be differe nt from the original. Hypertension (HTN) Chronic VINCE (generalized anxiety disorder) 12/08/2011 Insomnia 08/22/2009 Obesity 07/12/2008 Thoracic or lumbosacral neuritis or radiculitis, unspe cified 12/08/2004 Encounters Date Type Specialty Care Team Description 10/08/2021 Office Visit Multiple Sclerosis Ruddy Romero cell arteritis (HCC) (Primary Dx); MD Jm Optic neuropath y; Visual field de fect; Polymyalgia rhe umatica (HCC); Iron deficiency anemia due to chronic blood loss; Closed fracture of lower extremity, unspecified laterality, initial encounter 10/08/2021 Ophth Exam Multiple Sclerosis Juli Mina Arcuate scotoma, left (Primary Dx); Giant cell alisha ritis (HCC) 10/08/2021 Travel 09/10/2021 Ophth Exam Multiple Sclerosis Juli Mina 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) 09/10/2021 Office Visit Multiple Sclerosis Ruddy Romero cell arteritis (HCC) (Primary Dx); MD Jm Visual field defect Juli Mina 09/10/2021 Travel from Last 3 Months Social History Tobacco Use Types Packs/Day Years [...] Mass Index 31.57 09/10/2021 2:04 PM CDT Plan of Treatment Health Maintenance Due Date Last Done Comments Colonoscopy 1955 Dexa Scan 1955 Diabetes Screening 1955 Hepatitis C Screening 1955 Yearly Review of HCD 2006 Mammogram Screening 08/12/2013 08/13/2011, 07/30/2011 Pneumococcal 65+ (2 - PCV) 11/05/2014 11/05/2013 COVID-19 Vaccine (4 - Booster for 08/31/2021 07/06/2021, , Moderna series) 07/29/2020 Influenza Vaccine (#1) 2021 01/23/2021, 04/08/2019, 01/16/2018, Additional history exists Pap Smear 12/06/2021 12/06/2016, 12/06/2016, 12/06/2016 Adult Tetanus Booster 10/03/2023 10/02/2013, 09/24/2013, 08/22/2009 Zoster Vaccine Completed 01/16/2018, 10/03/2017 Insurance Payer Benefit Plan / Subscriber ID Effective Phone Address [facility] OPEN [id number] 2018-Stu [phone] [address] ACCESS/CHOICE nt [phone] [place] [address] Care Teams Cat Driver Relationship Specialty Start Date End Date Unknown, PCP - General 09/21/21 NO ADDRESS/PHONE/FAX AFFILIATED Unknown, PCP - Primary Care Clinic 09/21/21 NO ADDRESS/PHONE/FAX AFFILIATED
--- OUTSIDE RECORDS SUMMARY | 2021-12-03 11:08 | XMS_ITS | Encounter Summary ---
:1955 Author Organization [facility] Address [address] [place] [address] Care Team Providers Name Role Phone Unavailable Primary Care Provider Unavailable Reason for Visit Reason Comments Results [facility] Encounter Details Date Type Department Care Team Description 01/31/2021 Clinical Communication Division of [facility] Gibran Celis Results ([facility]) Internal Medicine, J, MAaronS., R.N. [address] [address] [place], [place] [phone] (Work) [phone] Social History Tobacco Use Types Packs/Day Years Used Date Smoking Tobacco: Never Sex Assigned at Date Recorded Not on file documented as of this encounter Miscellaneous Notes Telephone Encounter - Edie Escalante, RKelly. - 01/31/2021 10:17 AM CST TELEPHONE COMMUNICATION NOTE This was a telephone notification to Ms. Bonilla or to their caregiver to notify them that their PCR test for SARS-CoV-2 (the virus that causes COVID-19) has returned positive. Physician Relations Representative: No Currently Ms. Bonilla has the following symptoms: cough, loss of taste or smell, sore throat, nasalcongestion and headache DATE of symptom onset: 01/24/2021 Since onset, symptoms have improved. RESULTS SARS Coronavirus-2, PCR Date Value Ref Range Status 04/21/2020 Undetected Undetected Final Comment: SARS-CoV-2 RNA absent. This result does not rule out COVID-19 in the patient, as the sensitivity of the test depends on the timing of the specimen collection and quality of the specimen. Result should be correlated with patient's history and clinical presentation. ----ADDITIONAL INFORMATION---- This test was developed and its performance characteristics determined by [facility] in a manner consistent with CLIA requirements. Independent review by the U.S. Food and Drug Administration is pending. Visit the CDC website: https://www.cdc.gov/coronavirus/ for the most recent guidelines on Coronavirus testing. Fact Sheet for Healthcare Providers: (https://www.Panasas/it-mmfiles/ Provider_Fact_Sheet_for_[facility]_COVID-19.pdf) Fact Sheet for Patients: (https://www.Panasas/it-mmfiles/ Patient_Fact_Sheet_for_COVID-19.pdf) SARS-CoV-2 RNA by PCR Date Value Ref Range Status 01/05/2021 Undetected Undetected Final Comment: SARS-CoV-2 RNA absent. This result does not rule out COVID-19 in the patient, as the sensitivity of the test depends on the timing of the specimen collection and the quality of the specimen. Result should be correlated with patient's history and clinical presentation. ----ADDITIONAL INFORMATION---- This RT-PCR test using the shanique SARS-CoV-2 assay ([employer] performed on the shanique 6800/8800 System has received Emergency Use Authorization (EUA) by the U.S. Food and Drug Administration, and is modified from the rib matcher and fitter's instructions with a bridging study. Performance characteristics were verified by [facility] in a manner consistent with CLIA requirements. Fact sheets for this Emergency Use Authorization (EUA) assay can be found at the following links: For Healthcare Providers: https://www.fda.gov/media/277682/download For Patients: https://www.fda.gov/media/519673/download SARS CoV-2 RNA, TMA Date Value Ref Range Status 01/30/2021 Detected (A) Undetected Final Comment: SARS-CoV-2 RNA present. ----ADDITIONAL INFORMATION---- This molecular amplification test was performed using the Aptima SARS-CoV-2 assay ([employer] on the Mosec, Mobile Secretary System under emergency use authorization (EUA) by the U.S. Food and Drug Administration. Fact sheets for this EUA assay can be found at the following links: For Healthcare Providers: https://www.fda.gov/media/404933/download For Patients: https://www.fda.gov/media/992191/download 12/26/2020 Undetected Undetected Final Comment: SARS-CoV-2 RNA absent. This result does not rule out COVID-19 in the patient, as the sensitivity of the test depends on the timing of the specimen collection and the quality of the specimen. Result should be correlated with patient's history and clinical presentation. ----ADDITIONAL INFORMATION---- This molecular amplification test was performed using the Aptima SARS-CoV-2 assay ([employer] on the Austin System under emergency use authorization (EUA) by the U.S. Food and Drug Administration. Fact sheets for this EUA assay can be found at the following links: For Healthcare Providers: https://www.SocialVolt.gov/media/894679/download For Patients: https://www.SocialVolt.gov/media/861045/download 05/14/2020 Detected (A) Undetected Final Comment: SARS-CoV-2 RNA present. ----ADDITIONAL INFORMATION---- This molecular amplification test was performed using the Aptima SARS-CoV-2 assay ([employer] on the Austin System under emergency use authorization (EUA) by the U.S. Food and Drug Administration. Fact sheets for this EUA assay can be found at the following links: For Healthcare Providers: https://www.fda.gov/media/493579/download For Patients: https://www.fda.gov/media/795208/download COVID Risk Scores at the time of this review Care/Risk Scores Risk Factors for Severe Infection w/ COVID-19 3 Monoclonal Antibody Screening Score (MASS) Total Points 6 COVID Antibody Screening Tool (CAST) Total Points 3 ASSESSMENT #1 COVID-19 Infection Isolation Assessment Beginning of isolation (day 0) is: 01/24/2021 The patient may end home isolation when they meet the following criteria: ??? It has been at least 10 days from symptom onset or date of positive test if no symptoms ??? They have been afebrile at least 24 hours without the use of fever reducing medications ??? Their symptoms are improving Monoclonal Antibody Assessment All patients are considered for monoclonal antibody infusion. The patient was informed that if determined eligible, they will be contacted by the monoclonal antibody infusion team. Remote Patient Monitoring Assessment Ms. Bonilla has a monoclonal antibody screening score (MASS) of 3 or greater, but is not eligible for remote patient monitoring due to nearing the end of the recommended isolation period. Symptom Severity Assessment Ms. Bonilla is having mild symptoms that can be managed at home with rest, fluids, acetaminophen, and non-steroidal anti-inflammatory medications as needed. PLAN Disposition/Recommendation: advised to continue self care activities advised to contact primary care provider with questions Response to Education: patient/caller able to teach back Caller agreeable to plan of care: yes The following references were used: Nursing judgement and [facility] workflow Edie Escalante R.N. [place] COVID Care Team [facility] COVID-19 GENERAL INFORMATION If patient develops mild symptoms they can be managed at home with rest, fluids, acetaminophen, and non-steroidal anti-inflammatory medications as needed. Mild symptoms may include fever, chills, cough, fatigue, myalgias, sore throat, runny nose, headache, mild shortness of breath or mild chest pain. Symptom Monitoring and Escalating Care The patient or caregiver was advised to contact their primary care provider if moderate symptoms areworsening and to call 911 or present to the nearest emergency department if symptoms are severe. The patient or caregiver was advised to monitor for the following symptoms: ??? Shortness of breath, trouble breathing, rapid breathing ??? Chest pain ??? Dehydration ??? Lethargy/sleepiness or altered mental status ??? Dizziness ??? Depression/Anxiety/PTSD ??? Vomiting ??? Diarrhea ??? Fever (100.4 F or greater) ??? Generalized Rash (pediatrics) ??? Red eyes/lips (pediatrics) Additional guidance for infants under 12 months: In < 2 months, Fever >= 100.4F (send to ED) 2-12 months, Fever >=101 (notify provider) Hypothermia (notify provider or send to ED) Inconsolable (notify provider or send to ED) Apnea (notify provider or send to ED) Dehydration </= 3 wet diapers in 24 hours (notify provider or send to ED) Isolation and Quarantine Recommendations The patient or caregiver was advised that any asymptomatic family members or close contacts should quarantine and be tested after 3-5 days. Please call the [facility] COVID Triage Line at [phone] schedule these appointments. Any household member who is not fully vaccinated, should be tested 3-5 days after their last close contact. They need to quarantine for 14 days after last close contact, even if the test is negative. Any household family members who have been fully vaccinated, should be tested 3- 5 days after exposure and wear a mask in public indoor settings for 14 days after exposure. They do not need to quarantine as long as the COVID-19 exposure was at least 14 days after their vaccination series was fully completed and they do not have any symptoms of COVID-19. If they develop symptoms, they need to quarantine and be tested for COVID-19. ??? If the patient is a child or adolescent: the patient will need to self- isolate in their own roomas much as possible. ??? If the patient is a younger child or infant with COVID-19 negative caregivers: one caregiver should become the designated caregiver and isolate from other family members as much as possible. If this caregiver continues negative/unknown/asymptomatic, they will need to continue quarantine for 14 days following last day of contact with positive child. ??? Avoid sharing personal household items ??? Clean and disinfect 'high-touch' surfaces daily ??? Wear a facemask when around other people and cover coughs/sneezes ??? Practice good hand hygiene ??? Avoid touching your eyes, nose, and mouth ??? If possible, use separate bathroom from COVID-negative family members. Retesting is NOT recommended by the CDC and Infectious Disease experts. In the majority of cases, itresults in prolonged isolation of patients who continue to shed detectable SARS-CoV-2 RNA but are nolonger infectious. Testing will not be ordered unless required for procedure/surgery/appointment at the discretion of the provider recommending the visit. Those providers will order retesting when required. If the household members/close contacts become unwell, recommend calling the [facility] COVID Triage Line at [phone]. If symptoms are severe, report to local ED. Return to Work or School For patients 18 years and older, we have provided a general work/school excuse letter that the patient may share with a school or employer as documentation of the positive test result and initial isolation recommendations at the bottom of their initial letter. If further documentation is required, thepatient is advised to reach out to their PCP or subspecialists. For pediatric patients or their caregivers, if a school excuse/general work excuse letter is needed it is recommended that they reach out to their PCP or subspecialists. The patient will follow up with their primary care provider for evaluation and return to work assessment if they continue to have symptoms that interfere with work or school or if they do not meet criteria to end home isolation. Additional Information for Reference Vaccination Guidance Patient may receive any dose of a COVID-19 vaccine once they end home isolation if they did not receive MAB. If they receive MAB infusion, they should wait 90 days before receiving any dose of a COVID-19 vaccine. As we enter flu season, it is also important to make sure that your patient and other family membersreceive their influenza (flu) vaccine as well. They may receive the flu vaccine at any time after completing their isolation period, including those who received the MAb infusion. [facility] will be offeringinfluenza vaccination appointments this fall, but they can also go to community sites for this important vaccination. Upcoming Appointments If any clinic appointments are scheduled in the next 20 days, the patient should contact their care teams for guidance on whether these appointments should be rescheduled. COVID Infection Flag The COVID infection flag in the Radha Chart will 20 days from the date of the Sars-CoV-2 PCR. Patients with ongoing symptoms beyond 20 days should remain in isolation and follow up with their care teams regarding the need to reschedule any appointments. If a provider assesses the patient and determines that they may end home isolation prior to the 20 days, the provider may resolve the COVID infection flag, at which time the patient may return to [facility] for on site appointments. [email or web address] HER CLEANER Telephone Encounter - Gibran Celis M.S., R.N. - 01/31/2021 8:57 AM LEATHER CLEANER This was the first attempt to call the patient regarding a positive COVID-19 test. Please connect patient with the machine operator at [phone] and have them ask to be connected to pager [phone] to be connected with the COVID-19 Care Team. Please route questions about isolations and guidelines to the following in basket: P [facility] COVID-19 Positive. HER CLEANER documented in this encounter Plan of Treatment Not on filedocumented as of this encounter Visit Diagnoses Not on filedocumented in this encounter Additional Health Concerns Infection Onset Date Last Indicated Resolved Time COVID19 01/30/2021 01/30/2021 02/19/2021 5:07 AM LEATHER CLEANER Assessment Noted Time PHQ-9 Depression Total Score: 2 07/15/2014 11:54 AM CD T documented as of this encounter
--- OUTSIDE RECORDS SUMMARY | 2021-12-03 11:08 | XMS_ITS | Encounter Summary ---
:1955 Author Organization [facility] Address [address] [place] [address] Care Team Providers Name Role Phone Unavailable Primary Care Provider Unavailable Encounter Details Date Type Department Care Team Description 12/26/2020 Admin Visit Urgent Care, [facility], in [place], [place] [address] [place], [place] [phone] Social History Tobacco Use Types Packs/Day Years Used Date Smoking Tobacco: Never Sex Assigned at Date Recorded Not on file documented as of this encounter Plan of Treatment Not on filedocumented as of this encounter Visit Diagnoses Not on filedocumented in this encounter Additional Health Concerns Infection Onset Date Last Indicated Resolved Time COVID19 Pending 12/26/2020 12/26/2020 12/27/2020 1:21 PM CDT Assessment Noted Time PHQ-9 Depression Total Score: 2 07/15/2014 11:54 AM CD T documented as of this encounter
--- OUTSIDE RECORDS SUMMARY | 2021-12-03 11:08 | XMS_ITS | Encounter Summary ---
:1955 Author Organization [facility] Address [address] [place] [address] Care Team Providers Name Role Phone Unavailable Primary Care Provider Unavailable Encounter Details Date Type Department Care Team Description 04/21/2020 Admin Visit Department of Family Medicine in [place] [phone] Social History Tobacco Use Types Packs/Day Years Used Date Smoking Tobacco: Never Sex Assigned at Date Recorded Not on file documented as of this encounter Plan of Treatment Not on filedocumented as of this encounter Visit Diagnoses Not on filedocumented in this encounter Additional Health Concerns Infection Onset Date Last Indicated Resolved Time COVID19 Pending 04/21/2020 04/21/2020 04/21/2020 2:23 PM 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
--- OUTSIDE RECORDS SUMMARY | 2021-12-03 11:08 | XMS_ITS | Encounter Summary ---
:1955 Author Organization [facility] Address [address] [place] [address] Care Team Providers Name Role Phone Unavailable Primary Care Provider Unavailable Reason for Visit Reason Onset Date Comments Testing For Upper Respiratory Virus Symptoms 12/26/2020 Encounter Details Date Type Department Care Team Description 12/26/2020 External Outreach Department of Ge[facility] Cordero ntact With [facility] in [facility], (Suspected) Exposure [place], [place] C.N.P., D.N.P. To COVID-19 (Primary [address]) [place] [address] [place], [place] [phone] Social History Tobacco Use Types Packs/Day Years Used Date Smoking Tobacco: Never Sex Assigned at Date Recorded Not on file documented as of this encounter Progress Notes Aydin Theodore RAaronN. - 12/26/2020 10:22 AM CDT Encounter created for symptomatic infectious disease screening with possible COVID, Influenza, RSV, and/or Group A Strep testing. documented in this encounter Plan of Treatment Not on filedocumented as of this encounter Procedures Procedure Name Priority Date/Time Associated Diagnosis Comme nts SARS CORONAVIRUS-2 Routine 12/26/2020 2:08 PM Contact With And Results for this RNA, V CDT (Suspected) Exposure procedu re are in To COVID-19 the results section. documented in this encounter Results SARS Coronavirus-2 RNA, V Symptomatic (12/26/2020 2:08 PM CDT) [facility] Method Time Signature SARS-CoV-2 Swab, 12/27/2020 MKTO Specimen Nasopharynx 1:20 PM CDT Source SARS CoV-2 Undetected Undetected 12/27/2020 MKTO RNA, TMA 1:20 PM CDT Comment: SARS-CoV-2 RNA absent. This result does not rule out COVID-19 in the patient, as the sensitivity of the test depends o n the timing of the specimen collection and the quality of the specim en. Result should be correlated with patient's history and clinical presentat ion. ----ADDITIONAL INFORMATION---- This molecular amplification test was pe rformed using the Aptima SARS-CoV-2 assay ([employer] on the Rosums tem under emergency use authorization (EUA) by the U.S. Food and Drug Administ ration. Fact sheets for this EUA assay can be fo und at the following links: For Healthcare Providers: https://www.Mapidy a.gov/media/138491/download For Patients: https://www.fda.gov/media/ 336141/download Specimen Anatomical Collection Method Collection Time Receive d Time (Source) Location / / Volume Laterality Varies 12/26/2020 2:08 PM 5:19 (Nasopharynx) CDT PM CDT Radha Rg APRN.N.P., D.N.P. LAB MICROBIOLOGY - GENERAL ORDERABLES Performing Organization Address City/State/ZIP Code Phon e Number [facility]- [address] [place] [id number] [place] [address] [address] documented in this encounter Visit Diagnoses Diagnosis Contact With And (Suspected) Exposure To COVID-19 - Primary documented in this encounter Additional Health Concerns Infection Onset Date Last Indicated Resolved Time COVID19 Pending 12/26/2020 12/26/2020 12/27/2020 1:21 PM CDT Assessment Noted Time PHQ-9 Depression Total Score: 2 07/15/2014 11:54 AM CD T documented as of this encounter
--- OUTSIDE RECORDS SUMMARY | 2021-12-03 11:08 | XMS_ITS | Encounter Summary ---
:1955 Author Organization [facility] Address [address] [place] [address] Care Team Providers Name Role Phone Unavailable Primary Care Provider Unavailable Encounter Details Date Type Department Care Team Description 01/05/2016 Hospital Encounter HX [facility] Galilea Hamm M.D . Social History Tobacco Use Types Packs/Day Years Used Date Smoking Tobacco: Never Assessed Sex Assigned at Date Recorded Not on file documented as of this encounter Last Filed Vital Signs Vital Sign Reading Time Taken Comments Blood Pressure - - Pulse - - Temperature - - Respiratory Rate - - Oxygen Saturation - - Inhaled Oxygen Concentration - - Weight - - Height 176 cm (5' 9.29) 01/05/2016 2:58 PM CDT Body Mass Index - - documented in this encounter Medications at Time of Discharge Medication Sig Dispensed Refills Start Date End Date aspirin [address] tablet Take 81 mg by mouth 0 daily. cholecalciferol (VITAMIN Take 1 tablet by 0 06/29 D3) 50 mcg (2,000 Unit) mouth daily. tablet diphenhydrAMINE (BENADRYL) Take 2 capsules by 0 0 03/31/2015 25 mg capsule mouth daily. multivitamin with minerals Take 1 tablet by 0 capsule mouth daily. venlafaxine HCl Take 75 mg by mouth 0 03/31/2015 (VENLAFAXINE ORAL) daily. documented as of this encounter Miscellaneous Notes Miscellaneous - Kellie Montelongo APRN, C.N.P. - 01/06/2016 6:27 AM CDT DISREGARD Message about labs Document Contains Addenda Addendum by KHRIS MOORE CMA on January 07, 2016 13:54:09 CDT From: KHRIS MOORE CMA To: KELLIE MONTELONGO CORRECTIONS NURSE; Sent: 01/07/2016 13:54:09 CDT Subject: FW: DISREGARD Message about labs Addendum by CITLALI FELIX LPN on January 07, 2016 13:24 CDT Patient returned call and informed of message below. Patient verbalized understanding. She notes that she will increase iron rich food intake and recheck in 1 month. No further questions at this time. Addendum by KHRIS MOORE ARMATURE TESTER on January 07, 2016 08:42:11 CDT LMTCB From: KELLIE MONTELONGO CORRECTIONS NURSE To: KHRIS MOORE CMA; Sent: 01/06/2016 06:27:49 CDT ! Subject: DISREGARD Message about labs Disregard my message about labs. I was misinformed that they did not have the correct tube, however,her B12 and folate results are back. The results showed no deficiencies or thyroid problems. thus the increased size of RBC's is likely due to her methotrexate. It is difficult to know about iron deficiency as that is typically determined by the RBC size and color, which has been altered by her medication. The best way to know would be to do another draw for a pathologist to review it on a slide. Or she could try just increasing her dietary iron intake (not an iron supplement, just diet) and seeing if her anemia improves at the 1 month check. I'm assuming the fatigue is likely due to her acute illness on top of her chronic illness, and should improve over the next few weeks. Have her stay in close contact with updates and concerns so we canmanage accordingly. Thank you! SHERRY Source: [facility] POWERCHART Document Id: [id number] documented in this encounter Plan of Treatment Not on filedocumented as of this encounter Procedures Procedure Name Priority Date/Time Associated Diagnosis Comme nts THYROID-STIMULATING Routine 01/05/2016 3:05 PM Re sults for this HORMONE-SENSITIVE CDT procedure are in (S-TSH) the results section. FOLATE, S Routine 01/05/2016 3:05 PM Results f or this CDT procedure are i n the results section. VITAMIN B12 ASSAY, Routine 01/05/2016 3:05 PM Res ults for this S CDT procedure are i n the results section. documented in this encounter Results Folate (01/05/2016 3:05 PM CDT) athologist Signature Folate, S >20.0 >=4.6 NGML POWERCHART Comment: Biotin has been [facility] the [facility] as a potential interfering substance. Higher concentrations of biotin may be found in multivitamins, hair/nail supplements, and workout supplements. If the result does not match clinical observat ions, repeat testing after patient refrains from the use of supplements for at least 12 hours. Specimen (Source) Anatomical Collection Method Collection Time Re ceived Time Location / / Volume Laterality Blood 01/05/2016 3:05 PM CDT Kellie Montelongo APRN, Radha.N.P., R.N. LAB BLOOD ADD-ON Performing Organization Address City/[facility] Code Phon e Number POWERCHART Thyroid-Stimulating Hormone-Sensitive (s-TSH) (01/05/2016 3:05 PM CDT) athologist [facility] TSH 0.58 0.27 - 4.20 POWERCHART (Thyrotropin) MIUL Comment: Biotin has been identified by the [facility] as a potential interfering substance. Higher concentrations of biotin may be found in multivitamins, hair/nail supplements, and workout supplements. If the result does not match clinical observat ions, repeat testing after patient refrains from the use of supplements for at least 12 hours. Specimen (Source) Anatomical Collection Method Collection Time Re ceived Time Location / / Volume Laterality Blood 01/05/2016 3:05 PM CDT Kellie Montelongo APRN, Radha.N.P., R.N. LAB BLOOD ADD-ON Performing Organization Address City/State/ZIP Code Phon e Number POWERCHART (ABNORMAL) Vitamin B12 Assay (01/05/2016 3:05 PM CDT) athologist [facility] Vitamin B12 1036 (H) 211 - 946 POWERCHART Assay, S PGML Comment: Biotin has been identified by the [facility] as a potential interfering substance. Higher concentrations of biotin may be found in multivitamins, hair/nail supplements, and workout supplements. If the result does not match clinical observat ions, repeat testing after patient refrains from the use of supplements for at least 12 hours. Specimen (Source) Anatomical Collection Method Collection Time Re ceived Time Location / / Volume Laterality Blood 01/05/2016 3:05 PM CDT Kellie Montelongo APRN, C.N.P., R.N. LAB BLOOD ADD-ON Performing Organization Address City/State/ZIP Code Phon e Number POWERCHART documented in this encounter Visit Diagnoses Not on filedocumented in this encounter Additional Health Concerns Assessment Noted Time PHQ-9 Depression Total Score: 2 07/15/2014 11:54 AM CD T documented as of this encounter
--- OUTSIDE RECORDS SUMMARY | 2021-12-03 11:08 | XMS_ITS | Encounter Summary ---
:1955 Author Organization [facility] Address [address] [place] [address] Care Team Providers Name Role Phone Unavailable Primary Care Provider Unavailable Reason for Visit Reason Onset Date Comments Testing For Upper Respiratory Virus Symptoms 01/05/2021 Encounter Details Date Type Department Care Team Description 01/05/2021 External Outreach Department of Family Marlee, Patricia Mathis, Contact With And Medicine in [facility], C.N.P., (Suspected) Exposure [place], [place] D.N.P. To COVID-19 (Primary [address] Dx) [place] [phone] Social History Tobacco Use Types Packs/Day Years Used Date Smoking Tobacco: Never Sex Assigned at Date Recorded Not on file documented as of this encounter Progress Notes Aydin Theodore RTrino - 01/05/2021 9:53 AM CDT Encounter created for symptomatic infectious disease screening with possible COVID, Influenza, RSV, and/or Group A Strep testing. documented in this encounter Plan of Treatment Not on filedocumented as of this encounter Procedures Procedure Name Priority Date/Time Associated Comments Diagnosis SARS CORONAVIRUS 2 Routine 01/05/2021 3:45 PM Res ults for this PCR DETECT, V CDT procedure are in the results section. documented in this encounter Results SARS Coronavirus 2 PCR Detect, V (01/05/2021 3:45 PM CDT) [facility] Method Time Signature SARS-CoV-2 Nasopharynx 01/07/2021 [facility] Specimen 2:02 AM CDT Source SARS-CoV-2 Undetected Undetected 01/07/2021 [facility] RNA by PCR 2:02 AM CDT Comment: SARS-CoV-2 RNA absent. This result does not rule out COVID-19 in the patient, as the sensitivity of the test depends o n the timing of the specimen collection and the quality of the specim en. Result should be correlated with patient's history and clinical presentat ion. ----ADDITIONAL INFORMATION---- This RT-PCR test using the shanique SARS-Co V-2 assay ([employer] performed on the shanique [address] has received Emergency Use Authorization (EUA) by the U.S. Food and Drug Administration, and is modified from the human resources trainee's instructions wit h a bridging study. Performance characteristics were verified by [facility] inic in a manner consistent with CLIA requirements. Fact sheets for this Emergency Use Autho rization (EUA) assay can be found at the following links: For Healthcare Providers: https://www.Ticketbis a.gov/media/023580/download For Patients: https://www.fda.gov/media/ 406400/download Specimen (Source) Anatomical Collection Method Collection Time Re ceived Time Location / / Volume Laterality Varies 01/05/2021 3:45 PM CDT Narrative [facility] SUPPORT EDNAE R - 01/07/2021 2:02 AM CDT Specimen Information: Specimen ID: [id number] Specimen Type: Varies Specimen Collection Start Date: ??3:46 PM Specimen ID: [id number] Specimen Type: Varies Specimen Collection Start Date: ??3:45 PM Specimen Received Date: 01/06/2021 ??9: 16 PM Patricia Whalen APRN, C.N.P., D.N.P. LAB MICROBIOLOGY - GENERAL ORDERABLES Performing Organization Address City/State/ZIP Code Phon e Number [facility] [address] [place] [id number] [facility] [place] [address] Laboratory Medicine and Pathology [address] [place] documented in this encounter Visit Diagnoses Diagnosis Contact With And (Suspected) Exposure To COVID-19 - Primary documented in this encounter Additional Health Concerns Infection Onset Date Last Indicated Resolved Time COVID19 Pending 01/05/2021 01/05/2021 01/05/2021 4:41 PM CDT Assessment Noted Time PHQ-9 Depression Total Score: 2 07/15/2014 11:54 AM CD T documented as of this encounter
--- OUTSIDE RECORDS SUMMARY | 2021-12-03 11:08 | XMS_ITS | Encounter Summary ---
:1955 Author Organization [facility] Address [address] [place] [address] Care Team Providers Name Role Phone Unavailable Primary Care Provider Unavailable Encounter Details Date Type Department Care Team Description 10/12/2015 Hospital Encounter HX NO MAPPING Danielle Rodrigez, GABY, C.N.P. [address] [place], [place] [phone] (Wo rk) Social History Tobacco Use Types Packs/Day Years Used Date Smoking Tobacco: Never Assessed Sex Assigned at Date Recorded Not on file documented as of this encounter Medications at Time of Discharge [...] of this encounter Miscellaneous Notes Miscellaneous - Conversion, Historical Provider Ser - 10/12/2015 11:59 PM CDT Coding Summary-Paper Based CODING DATE: 10/24/2015 FINAL [facility] STATUS: * Discharged to Home or Self Care PAYOR: [employer] ADMIT DX: REASON FOR VISIT DX: FINAL DX: PRINCIPAL: J02.9 Acute pharyngitis, unspecified SECONDARY: PROCEDURES DOCTOR NAME DATE NOTE: The code number assigned matches the documented diagnosis and / or procedure in the patient's chart. However, the narrative phrase printed from the coding software may appear abbreviated, or result in slightly different terminology. Coded By: SHARIF LIMA Date Saved: 10/24/2015 10:58 am Source: [facility] [employer] Document Id: [id number] documented in this encounter Plan of Treatment Not on filedocumented as of this encounter Visit Diagnoses Not on filedocumented in this encounter Additional Health Concerns Assessment Noted Time PHQ-9 Depression Total Score: 2 07/15/2014 11:54 AM CD T documented as of this encounter
--- OUTSIDE RECORDS SUMMARY | 2021-12-03 11:08 | XMS_ITS | Encounter Summary ---
:1955 Author Organization [facility] Address [address] [place] [address] Care Team Providers Name Role Phone Unavailable Primary Care Provider Unavailable Encounter Details Date Type Department Care Team Description 10/12/2015 Hospital Encounter [facility] Marcos Amato APRN, C.N.P. [address] [place] [address] (Wo rk) Social History Tobacco Use Types Packs/Day Years Used Date Smoking Tobacco: Never Assessed Sex Assigned at Date Recorded Not on file documented as of this encounter Last Filed Vital Signs Vital Sign Reading Time Taken Comments Blood Pressure - - Pulse 75 10/12/2015 11:50 AM CDT Temperature - - Respiratory Rate - - Oxygen Saturation - - Inhaled Oxygen Concentration - - Weight - - Height 176 cm (5' 9.29) 10/12/2015 11:50 AM CDT Body Mass Index - - documented [...] ORAL) daily. documented as of this encounter Progress Notes Danielle Amato APRN, C.N.P. - 10/12/2015 11:12 AM CDT [id number] [facility] CHIEF COMPLAINT/REASON FOR VISIT Cough and sore throat. HISTORY OF PRESENT ILLNESS This pleasant, 59-year-old female presents to clinic today with onset of a sore throat over the past5 days, initially with laryngitis, now her voice has returned. She has been coughing continuously. The cough is becoming more forceful and keeping her awake at night. It is turning more into a head cold now with head congestion, postnasal drip and persistent cough. Presents today for further evaluation. MEDICATIONS Benadryl for her current symptoms, without relief of symptoms. NyQuil for her current symptoms without relief of symptoms. Aspirin. Calcium. Magnesium. Zinc. Effexor. Folic acid. Inderal. Methotrexate. Prednisone 3 mg daily. Prempro. Primidone. Super B complex. <__IM_1: BLANK 01:16__> topical cream. Triamterene/hydrochlorothiazide. Vitamin D3. Zantac. ALLERGIES No known medication allergies. SYSTEMS REVIEW No fever, no nausea, no vomiting. No diarrhea. No rash. No shortness of breath. The patient does notnotice wheezing. She reports her has said that she has been wheezing. No chest pain. PAST MEDICAL/SURGICAL HISTORY Anxiety. Chronic pain syndrome. Headache. Hypertension. Polymyalgia rheumatica. Essential tremor of the left hand. SOCIAL HISTORY She has her grandchildren coming over and is concerned about the possibility of contagiousness. VITAL SIGNS Temperature is 37, pulse is 75, O2 sats 95%. Height is 176 cm. PHYSICAL EXAMINATION GENERAL: Exam reveals a pleasant, 59-year-old female with persistent cough. SKIN: Generally is warm, dry and intact. Afebrile at 37 degrees Celsius. No evidence of rash. HEENT: Head is normocephalic with minimal sinus congestion. Ears are pearly white and intact bilaterally. Throat: Posteriorly postnasal nasal drip, cobblestoning on an erythremic base. LYMPH: No lymphadenopathy palpated in the postauricular, neck regions. NECK: Supple. LUNGS: Clear anterior, posterior throughout. The patient does have a harsh congested cough present. Respirations are 16 at rest. Respirations escalate with cough. No diminished breath sounds. No wheezing noted. MENTAL STATUS: Alert, oriented, pleasant. IMPRESSION/REPORT/PLAN Viral syndrome. DIAGNOSTICS: Rapid strep test negative. PLAN: Tessalon Perles 100 mg tabs 1 tab by mouth up to 3 times daily as needed for cough, RobitussinAC 100 mg-10 mg, 5 mL by mouth every 6 hours as needed for cough and congestion x1 refill. Cautionedregarding fatigue. Maintain adequate hydration. Increase exposure to warm moisture with frequent teas, broths, showers. Continued cautious monitoring. To follow up with primary care if symptoms would persist or worsen. [facility] return to [facility] as desires in the future for minor ailments. Discharged in stable condition. Given written information outlining the details of viral syndrome. We will call only if the culture comes back positive for strep throat. Opportunity for questions provided. Danielle Amato APRN, C.N.PAaron/pos Electronically Signed By: DANIELLE AMATO CNP On: 10/13/2015 05:01 PM Modified by and Electronically Signed by: DANIELLE AMATO CNP On: 10/13/2015 05:01 PM Source: [facility] [id number] Document Id: [id number] documented in this encounter Procedure Notes Evangelina Richmond C.M.A. - 10/12/2015 12:07 PM CDT Rapid Strep A Screen POC Rapid Strep A Screen POC Entered On: 10/12/2015 12:12 CDT Performed On: 10/12/2015 12:07 CDT by EVANGELINA RICHMOND Rapid Strep A Screen POC Rapid Strep A Screen POC : Negative Internal Positive QC : Pass Internal Negative QC : Pass Rapid Strep Device Lot Number : [id number] Rapid Strep Device Expiration Date : 11/11/2016 CDT EVANGELINA RICHMOND - 10/12/2015 12:07 CDT Source: [facility] POWERCHART Document Id: [id number] CDT!7 documented in this encounter Nursing Notes Danielle Amato APRN, C.N.P. - 10/12/2015 12:14 PM CDT Ambulatory Patient Education The following Patient Education Materials have been given to the patient: Patient Education Materials: Ambulatory VIRAL SYNDROME (Adult) Ambulatory Viral Syndrome (Adult) A viral illness may cause a number of symptoms. The symptoms depend on the part of the body that thevirus affects. If it settles in the nose, throat, and lungs, it may cause cough, sore throat, congestion, and sometimes headache. If it settles in the stomach and intestinal tract, it may cause vomiting and diarrhea. Sometimes it causes vague symptoms like aching all over, feeling tired, loss of appetite, or fever. A viral illness usually lasts 1 to 2 weeks, but sometimes it lasts longer. In some cases, a more serious infection can look like a viral syndrome in the first few days of the illness. You may need another exam and additional tests to know the difference. Watch for the warning signs listed below. Home care Follow these guidelines for taking care of yourself at home: ?? If symptoms are severe, rest at home for the first 2 to 3 days. ?? Stay away from cigarette smoke - both your smoke and the smoke from others. ?? You may use acetaminophen or ibuprofen for fever, muscle aching, and headache, unless another medicine was prescribed for this. If you have chronic liver or kidney disease or ever had a stomach ulcer or GI bleeding, talk with your doctor before using these medicines No one who is younger than 18 and ill with a fever should take aspirin. It may cause severe liver damage. ?? Your appetite may be poor, so a light diet is fine. Avoid dehydration by drinking 8 to 12 8-ounceglasses of fluids each day. This may include water; orange juice; lemonade; apple, grape, and cranberry juice; clear fruit drinks; electrolyte replacement and sports drinks; and decaffeinated teas and coffee. If you have been diagnosed with a kidney disease, ask your doctor how much and what types of fluids you should drink to prevent dehydration. If you have kidney disease, drinking too much fluid can cause it build up in the your body and be dangerous to your health. ?? Nwui-jxj-wwfyerp remedies won't shorten the length of the illness but may be helpful for cough, sore throat; and nasal and sinus congestion. Don't use decongestants if you have high blood pressure. Follow-up care Follow up with your health care provider if you do not improve over the next week. When to seek medical care Get prompt medical attention if any of these occur: ?? Cough with lots of colored sputum (mucus) or blood in your sputum ?? Chest pain, shortness of breath, wheezing, or difficulty breathing ?? Severe headache; face, neck, or ear pain ?? Severe, constant pain in the lower right side of your belly (abdominal) ?? Continued vomiting (cant keep liquids down) ?? Frequent diarrhea (more than 5 times a day); blood (red or black color) or mucus in diarrhea ?? Feeling weak, dizzy, or like you are going to faint ?? Extreme thirst ?? Fever of 100.4?? F (38?? C) oral or higher, not better with fever medication ?? Convulsion ?? [id number] [place] [address]. All rights reserved. This information is not intended as a substitute for professional medical care. Always follow your healthcare professional's instructions. Source: [facility] POWERCHART Document Id: [id number] Danielle Amato APRN, C.N.P. - 10/12/2015 12:14 PM CDT Ambulatory Patient Education The following Patient Education Materials have been given to the patient: Patient Education Materials: Source: [facility] ShweebCHART Document Id: [id number] documented in this encounter Miscellaneous Notes Miscellaneous - Evangelina Richmond C.M.A. - 10/12/2015 11:50 AM CDT Adult Drafter Chief Design Intake/History Adult Drafter Chief Design Intake/History Entered On: 10/12/2015 11:53 CDT Performed On: 10/12/2015 11:50 CDT by EVANGELINA RICHMOND Intake Chief Complaint : bad cough, sore throat, both ears hurt, congestion in head, green phlegm when she blows nose Onset of Symptoms : last Tuesday ( 5 days) Ambulatory Intake Additional Information : is taking prednisone and other medicactions; no OTC meds today Temperature Core : 37.0 DegC(Converted to: 98.6 DegF) Peripheral Pulse Rate : 75 /min SpO2 : 95 % Oxygen Therapy : Room air Height : 176 cm(Converted to: 5 ft 9 inch(es), 69 inch(es)) EVANGELINA RICHMOND - 10/12/2015 11:50 CDT General Info Information Given By : Patient Preferred Communication Mode : Verbal Languages : Malaysian Is Patient Female and 13-50 no hysterectomy : No EVANGELINA RICHMOND - 10/12/2015 11:50 CDT Subjective Pain Symptoms : Yes EVANGELINA RICHMOND - 10/12/2015 11:50 CDT Pain Scale Pain Scale Verbal 0-10 : Open EVANGELINA RICHMOND - 10/12/2015 11:50 CDT Pain Pain Assessment Grid Pain 1 Location : Throat EVANGELINA RICHMOND - 10/12/2015 11:50 CDT Dependent Habits Exposure to Tobacco Smoke : Other: never Smoking Status : Never smoker Tobacco 2A : No Tobacco Use/Currently Using : No Tobacco Use/Last 30 Days : No Tobacco Use/Last 12 months : No EVANGELINA RICHMOND - 10/12/2015 11:50 CDT Caffeine Use Grid Caffeine Use : Current Type : Coffee Frequency : Daily Amount : couple cups daily EVANGELINA RICHMOND - 10/12/2015 11:50 CDT Recreational Drug Use Grid Drug Use : None EVANGELINA RICHMOND - 10/12/2015 11:50 CDT Source: [employer]! Document Id: [id number] CDT!39 documented in this encounter Plan of Treatment Not on filedocumented as of this encounter Procedures Procedure Name Priority Date/Time Associated Diagnosis Comme nts RAPID STREP A Routine 10/12/2015 12:12 PM Results for this SCREEN CDT procedure are i n the results section. documented in this encounter Results Rapid Strep A Screen (10/12/2015 12:12 PM CDT) [facility] Method Time Signature HXRapid Strep POWERCHART Confirmation HXPre Negative for POWERCHART Group A Strep by culture. HXFinal Negative for POWERCHART Group A Strep by culture. Specimen (Source) Anatomical Collection Method Collection Time Re ceived Time Location / / Volume Laterality Throat 10/12/2015 12:12 PM CDT Danielle Amato APRN, C.N.P. LAB MICROBIOLOGY - GENERAL ORDERABLES Performing Organization Address City/State/ZIP Code Phon e Number POWERCHART documented in this encounter Visit Diagnoses Not on filedocumented in this encounter Additional Health Concerns Assessment Noted Time PHQ-9 Depression Total Score: 2 07/15/2014 11:54 AM CD T documented as of this encounter
--- OUTSIDE RECORDS SUMMARY | 2021-12-03 11:08 | XMS_ITS | Encounter Summary ---
:1955 Author Organization [facility] Address [address] [place] [address] Care Team Providers Name Role Phone Unavailable Primary Care Provider Unavailable Encounter Details Date Type Department Care Team Description 01/02/2016 Hospital Encounter HX [facility] Bethany Freeman i, GABY, C.N.P., R. N. [address] [facility] [address] [place], [place] [address] (Wo rk) Social History Tobacco Use Types Packs/Day Years Used Date Smoking Tobacco: Never Assessed Sex Assigned at Date Recorded Not on file documented as of this encounter Last Filed Vital Signs Vital Sign Reading Time Taken Comments Blood Pressure 138/66 01/02/2016 1:24 PM CDT Pulse 80 01/02/2016 1:24 PM CDT Temperature - - Respiratory Rate 14 01/02/2016 1:24 PM CDT Oxygen Saturation - - Inhaled Oxygen Concentration - - Weight 110 kg (243 lb 9.7 oz) 01/02/2016 1:24 PM CDT Height 176 cm (5' 9.29) 01/02/2016 1:24 PM CDT Body Mass Index 35.67 01/02/2016 1:24 PM CDT documented in this encounter Medications at Time [...] documented as of this encounter Progress Notes Leilani Perez APRN, C.NSienna - 01/02/2016 1:15 PM CDT [id number] CHIEF COMPLAINT/REASON FOR VISIT Cough and cold. HISTORY OF PRESENT ILLNESS Gloria is a 60-year-old female who presents today after not feeling well since the beginning of December. She reports excess fatigue to where she could sleep almost constantly. She had a worst sore throat in the beginning but it has improved. 7 and 8 days ago she had a temperature of 103 and also 2 weeks prior to that a temperature of 103. She has had a productive cough producing green mucus. It gets worse when she is supine. Lying supine she is able to hear crackles with exhalation. She reports occasional occipital headache. She has tried multiple bqbt-dhg-fjeqmhs antitussives such as Mucinex and Robitussin. She last saw her bd special education teacher in November and is not due to see her again in [place] until March. MEDICATIONS Aspirin 81 mg daily. Benadryl at bedtime for sleeping. Calcium, magnesium, and zinc daily. Effexor XR 150 mg plus 75 mg capsule daily. Folic acid 1 mg daily. Inderal LA 120 mg daily Methotrexate 2.5 mg weekly. Prednisone 10 mg daily. Prempro 0.45 mg/1.5 mg tablet daily. Primidone 50 mg daily. Super B complex daily. Tetrix cream topical to skin of hands daily. Triamterene-hydrochlorothiazide 37.5 mg/25 mg tablet, 1 daily as needed for swelling. Vitamin D3 2000 IU daily. ALLERGIES No known allergies. SYSTEMS REVIEW Per HPI. She is postmenopausal. All other systems negative at this time. PAST MEDICAL/SURGICAL HISTORY Significant for: Polymyalgia rheumatica with subsequent blas-like symptoms with steroid use. Hypertension. Dyslipidemia. Anxiety. Histoplasmosis. Lung nodule evaluated in [place] and deemed calcified. SOCIAL HISTORY with 3 grown children and 2 stepchildren, total of 11.5 grandchildren as one is on the way. Nonsmoker. VITAL SIGNS Temperature 36.4 degrees Celsius, heart rate 80, respiratory rate 14, blood pressure 138/66, oxygen saturation 95% on room air. Height 176 cm, weight 110.5 kg, BMI 35.67. PHYSICAL EXAMINATION GENERAL: Earlene is alert and oriented. In no acute distress. SKIN: Warm and dry. HEENT: Head normocephalic. Conjunctivae clear. Pupils equal, round, reactive to light. Bilateral tympanic membranes pearly tracy with normal cone of light. Oral mucosa pink and moist. Oropharynx withouterythema or exudate. NECK: Supple. No adenopathy. Sinuses nontender to percussion. CARDIAC: Regular rate and rhythm. No murmur or extra sound. RESPIRATORY: Lung sounds with crackles throughout all lobes, posteriorly worse to the right than theleft. A few wheezes. No dyspnea. Deep cough. MUSCULOSKELETAL: Normal gait and posture. DIAGNOSTIC: Chest x-ray and CBC at clinic. IMPRESSION/REPORT/PLAN 1. Community acquired pneumonia. Awaiting chest x-ray and lab results. Albuterol nebulizer administered at clinic. Patient warned of side effects prior to this. I checked for drug interactions as well.It appears she has been on the Zithromax in the past and tolerated well. No drug interactions noted with Zithromax, thus will treat with a Z-Mario Alberto as directed. I would like her to follow up in 3 days or as needed prior to that should concerns develop. Continue supportive measures and follow up in the meantime for worsening symptoms. All questions of patient answered at visit. She stated understanding and agreement with current plan. After albuterol treatment patient noticed no real improvement to her symptoms. Lung sounds had fewercrackles, but seemed more diminished to the right lower lobe with still a few wheezes. Still a deep harsh cough. She tolerated the albuterol well. Chest x-ray was negative for pneumonia. It did show 2 small opacities in the mid and lower right lung that may represent vessels or pulmonary nodules. Patient reports that she has a history of histoplasmosis and has had these evaluated in [place] at length and they have been determined calcified. We will plan to contact radiologist to see if he can access those x- rays to make comparisons and be sure these are the exact nodules she speaks of. Will notify of CBC results and adjust treatment plan accordingly. Otherwise, we will treat with a Z-Mario Alberto as directed. She has tolerated this in the past. She also inquired about cough syrup. Thus, we will treat with codeine-guaifenesin 10 mg/100 mg per 5 mL syrup, 5 mL every 6 hours as needed cough. Stressed to avoid driving after taking this medication. Avoid with any other medications that cause sleepiness. Also avoid taking with any other cough medication. Patient states, I plan to only take it at bedtime.We discussed using Tessalon Perles and she reports having at least 2 left at home, but she did not feel they worked much for her in the past. Thus, I did not prescribe at visit today. I would like to see her back on Tuesday for re-evaluation to be sure she is improving. Oxygen saturation after albuterol nebulizer was 96%. All questions of patient answered at visit. She stated understanding and agreement with the current plan. Leilani Perez APRN, C.N.P./pos Electronically Signed By: LEILANI PEREZ FERMENTER HELPER On: 01/07/2016 12:15 AM Source: [facility] MHSDOLBEYNONRADSYS Document Id: [id number] documented in this encounter Miscellaneous Notes Miscellaneous - Edda Coombs RTrino - 05/04/2016 10:55 AM CST Med Management Document Contains Addenda Addendum by CELI AHUJA MD on May 05, 2016 08:43:45 HERB COUNSELOR From: CELI AHUJA MD Sent: 05/05/2016 08:43:45 HERB COUNSELOR Subject: RE:Med Management Approved Order:propranolol (Inderal LA 120 mg oral capsule, extended release) 1 cap(s) PO Daily Qty: 90 cap(s) Refills: 0 Substitutions Allowed Route To Pharmacy - [id number] Signed by CELI AHUJA MD 05/05/2016 08:43:24 From: EDDA COOMBS RN ([facility] Medicine Nurse) To: CELI AHUJA MD; Sent: 05/04/2016 10:55:36 HERB COUNSELOR Subject: Med Management On hold pending signature Order:propranolol (Inderal LA 120 mg oral capsule, extended release) 1 cap(s) PO Daily Qty: 90 cap(s) Refills: 0 Substitutions Allowed Route To Pharmacy - [id number] Caller is: ( ) Patient ( ) Mother ( ) Father ( ) Spouse ( ) Daughter ( ) Son ( x ) Pharmacy ( ) Other: Provider: Pepe Pharmacy: [facility] Name of Medications Needing Refill: Propanolol Last Refill Date: 09/01/15 #90 Additional Information: Pt possibly not taking as prescribed, need approval to fill Last / Future Appointment: 01/02/16 Disposition: ( x ) Send to Pharmacy ( ) Call to Pharmacy ( ) 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 ( ) Mail Rxto Patient Source: [facility] POWERCHART Document Id: [id number] Electronically signed by Ryan [facility] Overhauler Helper [id number] at 08/08/2016 9:53 AM CDT Miscellaneous - Vishnu uLgo, RAaronNAaron - 03/17/2016 5:14 PM CST Effexor Document Contains Addenda Addendum by ANETTE DODSON RN on March 18, 2016 11:56:57 HERB COUNSELOR Submitted: Order:Return Visit Fam Med Need to make appt with Pepe for future refills Details: * Next Available, Send to Scheduling, F/U; MEDICATION CHECKS, 03/19/2016 0:00 HERB COUNSELOR, Need to make appt with Pepe for future refills, [facility] Malachi Signed by ANETTE DODSON RN Addendum by CELI AHUJA MD on March 18, 2016 11:52:12 HERB COUNSELOR From: CELI AHUJA MD Sent: 03/18/2016 11:52:12 HERB COUNSELOR Subject: RE:Effexor Approved Order:venlafaxine (Effexor XR 150 mg oral capsule, extended release) 1 cap(s) PO Daily Appt neededto review medications Qty: 90 cap(s) Duration: 90 day(s) Refills: 0 Substitutions Allowed Route To [facility] Signed by CELI AHUJA MD 03/18/2016 11:52:04 Approved Order:venlafaxine (Effexor XR 75 mg oral capsule, extended release) 1 cap(s) PO Daily take with effexor XR 150 mg pill for total dose 225 mg per day Qty: 90 cap(s) Refills: 0 Substitutions Allowed Route To [facility] Signed by CELI AHUJA MD 03/18/2016 11:52:04 no more refills unitl f/u appt From: VISHNU LUGO RN ([facility] Medicine Nurse) To: CELI AHUJA MD; Sent: 03/17/2016 17:14:11 HERB COUNSELOR Subject: Effexor On hold pending signature Order:venlafaxine (Effexor XR 150 mg oral capsule, extended release) 1 cap(s) PO Daily Appt neededto review medications Qty: 90 cap(s) Duration: 90 day(s) Refills: 0 Substitutions Allowed Route To [facility] On hold pending signature Order:venlafaxine (Effexor XR 75 mg oral capsule, extended release) 1 cap(s) PO Daily take with effexor XR 150 mg pill for total dose 225 mg per day Qty: 90 cap(s) Refills: 0 Substitutions Allowed Route To [facility] Caller is: ( ) Patient ( ) Mother ( ) Father ( ) Spouse ( ) Daughter ( ) Son ( [facility]'s ) Pharmacy ( ) Other: Provider: Pepe Pharmacy: [facility] Name of Medications Needing Refill: Effexor 75mg & 150mg XR Last Refill Date: Additional Information: unable to fill per protocol -- No current PHQ9 on file in EMR for review -- due for med check and PHQ9 Last / Future Appointment: last exam 01/01 for cough/cold, established care 08/22/15 --- no upcoming appts Disposition: ( ) Send to Pharmacy ( ) Call to Pharmacy ( ) 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 - 01/18/2016 9:23 PM CST Results Notification Document Contains Addenda Addendum by CITLALI GURROLA on January 19, 2016 09:00:46 HERB COUNSELOR Patient advised of results From: LEILANI PEREZ NP To: CITLALI GURROLA; Sent: 01/18/2016 21:23:56 HERB COUNSELOR ! Show up: 01/18/2016 21:23:56 HERB COUNSELOR Subject: Results Notification Actions: Notify patient of results Reminder Comments: See addendum to report. SHERRY Daniels Results: Date Result Type Result Name 01/16/2016 10:28 Radiology XR Chest 2 Views Source: [facility] Buysight Document Id: [id number] Electronically signed by Conversion, [facility] Overhauler Helper [id number] at 08/08/2016 9:53 AM CDT Miscellaneous - Brooks Bowesr - 01/15/2016 3:26 PM CDT Leilani Perez NP Document Contains Addenda Addendum by CITLALI GURROLA on January 16, 2016 10:03:19 CDT Patient notified of below. Will call when results are available. Addendum by LEILANI PEREZ NP on January 15, 2016 20:10:35 CDT From: LEILANI PEREZ NP To: CITLALI GURROLA; Sent: 01/15/2016 20:10:35 CDT Subject: RE: Leilani Perez NP, Dr. call me tonight and is going to make the comparison in the morning. He is also going torequest that at least some images from [place] be uploaded into our system for future reference. Thanks for following up on this! SHERRY Addendum by CITLALI GURROLA on January 15, 2016 16:10:51 CDT From: CITLALI GURROLA To: LEILANI PEREZ NP; Sent: 01/15/2016 16:10:51 CDT Subject: FW: Leilani Perez NP, see message below. I also placed a call to [facility] to have them leave the message with Dr Urbina to have him contact you regarding the xray. Addendum by CITLALI GURROLA on January 15, 2016 15:48:46 CDT From: CITLALI GURROLA ([facility] Nurse) To: CITLALI GURROLA; Sent: 01/15/2016 15:48:46 CDT Subject: FW: Leilani Perez NP From: BROOKS BOWSER To: [facility] Nurse; Cc: [facility]; Sent: 01/15/2016 15:26:33 CDT Subject: Leilani Perez NP If you need a prescription refill please call your pharmacy. Please allow 3 business days for processing. Call Center Template: ?? May we leave a message for you on this phone? ?? How soon do you need a call back? ?? What can I help you with today? Gloria wanted to let Leilani know that her xrays are with service representative office in [place]. ?? If Medication Refill: o What is the medication? o What pharmacy do you use? o Have you contacted your pharmacy regarding this request? I will send this information to the appropriate staff member who will look into your concern. If thenurse needs to talk to you he or she will call you back within two hours. Thank you for calling [facility]. Source: [facility] POWERCHART Document Id: [id number] Electronically signed by Ryan [facility] Overhauler Helper [id number] at 08/08/2016 9:53 AM CDT Miscellaneous - FixSuki - 01/15/2016 7:55 AM CDT pepe-follow up Document Contains Addenda Addendum by CITLALI GURROLA on January 15, 2016 16:12:32 CDT Patient notified of below. She understands the plan. She was also wondering about a cough syrup. Per Dr Ahuja, she is willing to send in an Rx for Robatussin with Codeine. She will call next week if no improvement. Addendum by CELI AHUJA MD on January 15, 2016 15:58:28 CDT From: CELI AHUJA MD To: CITLALI GURROLA; Sent: 01/15/2016 15:58:28 CDT Subject: RE: pepe-follow up if not better wiht prednisone, then can try a different round of abx (however, i prefer that she been first for further eval) Addendum by CELI AHUJA MD on January 15, 2016 15:56:03 CDT From: CELI AHUJA MD To: CITLALI GURROLA; Sent: 01/15/2016 15:56:03 CDT Subject: RE: pepe-follow up most likely has reactive airway disease. prednisone burst. Addendum by CITLALI GURROLA on January 15, 2016 11:09:32 CDT From: CITLALI GURROLA To: CELI AHUJA MD; Sent: 01/15/2016 11:09:32 CDT Subject: FW: pepe-follow up Patient calling with an update. She was seen by Leilani Perez on 01/02/16 and was Dx with community acquired pneumonia. She would like you to review the labs and chest xray that she had done. She statesthat she is extremely tired. She states that she can not get rid of the cough. Yesterday she was coughing to the point of vomitting. She has finished her Zithromax and is requesting another Rx. She is going out of town and wants to be better before this happens. Please advise. Addendum by CITLALI GURROLA on January 15, 2016 08:18:10 CDT From: CITLALI GURROLA ([facility] Nurse) To: CITLALI GURROLA; Sent: 01/15/2016 08:18:10 CDT Subject: FW: ahuja-follow up From: SUKI CABELLO ([facility]) To: [facility] Nurse; Cc: [facility]; Sent: 01/15/2016 07:55:27 CDT Subject: ahuja-follow up If you need a prescription refill please call your pharmacy. Please allow 3 business days for processing. Call Center Template: ?? May we leave a message for you on this phone? ?? How soon do you need a call back? ?? What can I help you with today?she'd like to discuss some lab tests she's had and also that she still has her bronchitis/pnemonia she's been dealing with and would like a call back please at [phone]. ?? If Medication Refill: o What is the medication? o What pharmacy do you use? o Have you contacted your pharmacy regarding this request? I will send this information to the appropriate staff member who will look into your concern. If thenurse needs to talk to you he or she will call you back within two hours. Thank you for calling [facility]. Source: [facility] POWERCHART Document Id: [id number] Electronically signed by Ryan, [facility] Overhauler Helper [id number] at 08/08/2016 9:53 AM CDT Miscellaneous - Leilani Perez, HEAD END DESIZING MACHINE OPERATOR, C.N.P. - 01/05/2016 10:11 PM CDT Results Notification Document Contains Addenda Addendum by KHRIS MOORE CMA on January 07, 2016 13:54:01 CDT Addressed in other message. Addendum by KHRIS MOORE CMA on January 07, 2016 09:10:34 CDT LMTCB From: LEILANI PEREZ FERMENTER HELPER To: KHRIS MOORE CMA; Sent: 01/05/2016 22:11:26 CDT ! Show up: 01/05/2016 22:11:26 CDT Subject: Results Notification Actions: Notify patient of results Reminder Comments: Thyroid was normal, but did not have the blood to draw the B12 or folate deficiency. Would she be willing to come in to have these drawn? Let me know and will place order. Thanks, SHERRY Results: Date Result Name Ind Value Ref Range 01/05/2016 15:05 TSH 0.58 mIU/L (0.27 - 4.20) 01/02/2016 14:00 Hgb (L) 11.5 g/dL (12.0 - 15.5) 01/02/2016 14:00 Hct 35.9 % (34.9 - 44.5) 01/02/2016 14:00 WBC 7.4 x10(9)/L (3.5 - 10.5) 01/02/2016 14:00 RBC (L) 3.61 x10(12)/L (3.90 - 5.03) 01/02/2016 14:00 MCV (H) 99.4 fL (81.6 - 98.3) 01/02/2016 14:00 RDW 13.5 % (11.9 - 15.5) 01/02/2016 14:00 Platelet 375 x10(9)/L (150 - 450) 01/02/2016 14:00 Neutro Absolute 5.33 10(9)/L (1.70 - 7.00) 01/02/2016 14:00 Lymph Absolute 1.42 x10(9)/L (0.90 - 2.90) 01/02/2016 14:00 Granite Absolute 0.55 x10(9)/L (0.30 - 0.90) 01/02/2016 14:00 Eos Absolute 0.11 x10(9)/L (0.05 - 0.50) 01/02/2016 14:00 Baso Absolute 0.02 x10(9)/L (0.00 - 0.30) 01/02/2016 14:00 Differential? Auto Source: [facility] POWERCHART Document Id: [id number] Electronically signed by Ryan, [facility] Overhauler Helper [id number] at 08/08/2016 9:53 AM CDT Miscellaneous - Suki Cabello - 01/05/2016 10:03 AM CDT ana-lung xray Document Contains Addenda Addendum by CITLALI GURROLA on January 05, 2016 10:05:45 CDT From: CITLALI GURROLA ([facility] Nurse) To: LEILANI PEREZ FERMENTER HELPER; Sent: 01/05/2016 10:05:45 CDT Subject: FW: ana-lung xray From: SUKI CABELLO ([facility]) To: [facility] Medicine Nurse; Cc: [facility]; Sent: 01/05/2016 10:03:50 CDT Subject: ana-lung xray If you need a prescription refill please call your pharmacy. Please allow 3 business days for processing. Call Center Template: ?? May we leave a message for you on this phone? ?? How soon do you need a call back? ?? What can I help you with today? she's wondering if you compared her lung xray from tuesday with the lung xray from [place]. ?? If Medication Refill: o What is the medication? o What pharmacy do you use? o Have you contacted your pharmacy regarding this request? I will send this information to the appropriate staff member who will look into your concern. If thenurse needs to talk to you he or she will call you back within two hours. Thank you for calling [facility]. Source: [facility] POWERCHART Document Id: [id number] Electronically signed by Conversion, [facility] Overhauler Helper [id number] at 08/08/2016 9:53 AM CDT Miscellaneous - Suki Cabello - 01/05/2016 8:07 AM CDT ANA-return call Document Contains Addenda Addendum by CITLALI GURROLA on January 05, 2016 13:35:09 CDT Patient notified of below. She will come in today to have the labs drawn. Addendum by LEILANI PEREZ FERMENTER HELPER on January 05, 2016 12:55:05 CDT From: LEILANI PEREZ FERMENTER HELPER [facility]: [facility]; Sent: 01/05/2016 12:55:05 CDT Subject: Correction Due to the enlarged RBC's, iron deficiency is less likely. Will add orders for B12, folate, and thyroid testing to see if she is deficient there. These can also contribute to fatigue. Please disregard the iron replacment recs when calling. Thanks, SHERRY Addendum by LEILANI PEREZ FERMENTER HELPER on January 05, 2016 12:52:44 CDT From: LEILANI PEREZ FERMENTER HELPER To: JOE [facility] Medicine Nurse; Sent: 01/05/2016 12:52:44 CDT Subject: RE: ANA-return call I sent a message to reading radiologist on Tuesday about comparing the xrays and haven't heard back. Will let her know when we do. Her blood count did show slight anemia which can contribute to fatigue. I would recommend increasingthe iron in her diet (peanut butter, nuts, beans, red meat, spinach, etc.) to bring this up and recheck it in a month to be sure it's not dropping. No red or black stools correct? I did not do a Granite as the fatigue was most likely due to her bronchitis ongoing for 3 weeks, and she was not having other symptoms, and it would not change the treatment plan unless she was in contactsports, which I am assuming she's not. Let's keep close contact and see how she is feeling on . It's always something we can do in the future if necessary and not improving. Thanks, SHERRY Addendum by CITLALI GURROLA on January 05, 2016 09:04:41 CDT From: CITLALI GURROLA ([facility] Nurse) To: LEILANI PEREZ FERMENTER HELPER; Sent: 01/05/2016 09:04:41 CDT Subject: FW: ANA-return call Called and spoke with patient. Relayed the message that was left last tuesday about the Tesselan Pearles. She was told to come in today for a follow up but patient feels like she does not need to come and canceled it. She is feeling somewhat better but still has the terrible cough. Patient was asking about the blood test results. She was wondering if a mono test was completed as she is extremely tired. I advised that just a CBC was done and the results were given. She is going to be taking the last of the Zpak tomorrow and wondering about getting a refill as she is still having symptoms. Advised that the Zithromax will be in her system for 10 days even though she is only taking it for 5 days. 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 Please allow 3 business days for processing. Call Center Template: ?? May we leave a message for you on this phone? ?? How soon do you need a call back? ?? What can I help you with today? she got a call from nicole last week and would like a call back todiscuss a few things. ?? If Medication Refill: o What is the medication? o What pharmacy do you use? o Have you contacted your pharmacy regarding this request? I will send this information to the appropriate staff member who will look into your concern. If thenurse needs to talk to you he or she will call you back within two hours. Thank you for calling [facility]. Source: [facility] POWERCHART Document Id: [id number] Electronically signed by Ryan [facility] Overhauler Helper [id number] at 08/08/2016 9:53 AM CDT Miscellaneous - Leilani Perez, GABY, C.N.P. - 01/02/2016 1:54 PM CDT Ambulatory Patient Summary [address] [id number] Visit Information Name: GLORIA BONILLA [facility] Number: [id number] Current Date: 01/02/2016 13:54:05 Physicians Attending Provider: LEILANI PEREZ FERMENTER HELPER Primary Care Provider: CELI AHUJA MD RADHAGLORIA BAKER has been given the following list of follow-up instructions, medication list, and patient education materials: Follow-up Instructions Your Medications Here is a list of your medications. It is important to take your medications as directed. Use a pillbox or chart to help remind you to take your medications. Please let your doctor or nurse know if you have problems taking your medications. Medication/Strength How to Take Indications/Special Instructions/Comments/Notes for Patient Medication Changes/Routing aspirin (Aspir 81) 81 mg, Oral, once a day cholecalciferol (Vitamin D3 2000 intl units oral tablet) 1 Tablet(s), Oral, once a day conjugated estrogens-medroxyPROGESTERone (Prempro 0.45 mg-1.5 mg oral tablet) 1 Tablet(s), Oral, once a day diphenhydrAMINE (Benadryl) See Instructions ii po daily at HS for sleeping emollients, topical (Tetrix Cream topical kit) See Instructions apply to skin of hands Daily folic acid (folic acid 1 mg oral tablet) 1 Tablet(s), Oral, once a day methotrexate (methotrexate 2.5 mg oral tablet) See Instructions 10 tablets weekly multivitamin (Super B Complex) 1 Tablet(s), Oral, once a day multivitamin with minerals (Calcium, Magnesium and Zinc oral tablet) 1 Tablet(s), Oral, once a day predniSONE (predniSONE 10 mg oral tablet) 1 Tablet(s), Oral, once a day This is a CHANGE primidone (primidone 50 mg oral tablet) 1 Tablet(s), Oral, once a day propranolol (Inderal LA 120 mg oral capsule, extended release) 1 cap, Oral, once a day triamterene-hydrochlorothiazide (triamterene-hydrochlorothiazide 37.5 mg-25 mg oral tablet) 1 Tablet(s), Oral, once a day as needed for Swelling venlafaxine (Effexor XR 150 mg oral capsule, extended release) 1 cap, Oral, once a day venlafaxine (Effexor XR 150 mg oral capsule, extended release) 1 cap, Oral, once a day venlafaxine (Effexor XR 75 mg oral capsule, extended release) 1 cap, Oral, once a day take with effexor XR 150 mg pill for total dose 225 mg per day Stop Taking the Following Medications: Medication list as of 01-02-16 13:54 Attention: If you have any medications at home that are not on this list, DO NOT take them until youcontact your provider for clarification. Give a copy of your medication list to your primary care provider. Update your medication list any time medications or doses are changed and carry your medication list at all times in case of emergency. Electronically Signed By: LEILANI PEREZ NP Signed On:02-JAN-2016 13:53:54 Your Allergies & Intolerances Substance Reaction Symptoms Category Comments No Known Allergies Your Problem List Problem Status Onset Comments Exam Gynecological Normal Active Headache (JARA) NOS Active Obesity NOS Active Anxiety NOS Active Hormone Therapy Status Active Hypertension (HTN) Chronic Active Chronic Pain Syndrome Active 07/22/14 No pain contract signed. Indication: Myalgia. Tramadol Polymyalgia Rheumatica (PMR) Active Tremor Essential NOS Active Obesity Body Mass Index (BMI) 30-40 Adult Active Your Upcoming Appointments Date Time Location Provider No Appointments found Attention: Contact your local Clinic if further appointment detail needed. Consider Using Patient Online Services Patient Online Services is a secure online and Mobile application that lets you: ?? View lab and test results ?? View portions of your medical record including clinical notes, immunizations and discharge summaries ?? Request an appointment or medication refill ?? Review your appointment schedule ?? Send secure messages to your care team Its easy to create an account if you dont have one. Go to [email or web address] and click on Create Your Account. Then, follow the directions to complete the online form. Youll be asked for your [facility] number which you can find at the top of this document. Your Goals/Additional instructions: Source: [facility] POWERCHART Document Id: [id number] Miscellaneous - Leilani Perez APRN, C.N.P. - 01/02/2016 1:54 PM CDT Ambulatory Discharge Medication List [address] [id number] Visit Information Name: GLORIA BONILLA [facility] Number: [id number] Current Date: 01/02/2016 13:54:04 Attending Provider: LEILANI PEREZ FERMENTER HELPER Primary Care Provider: CELI AHUJA MD GLORIA BONILLA has been given the following list of medications: Your Medications It is important to take your medications as directed. Use a pill box or chart to help remind you to take your medications. Please let your doctor or nurse know if you have problems taking your medications. Medication/Strength How to Take Indications/Special Instructions/Comments/Notes for Patient Medication Changes/Routing aspirin (Aspir 81) 81 mg, Oral, once a day cholecalciferol (Vitamin D3 2000 intl units oral tablet) 1 Tablet(s), Oral, once a day conjugated estrogens-medroxyPROGESTERone (Prempro 0.45 mg-1.5 mg oral tablet) 1 Tablet(s), Oral, once a day diphenhydrAMINE (Benadryl) See Instructions ii po daily at HS for sleeping emollients, topical (Tetrix Cream topical kit) See Instructions apply to skin of hands Daily folic acid (folic acid 1 mg oral tablet) 1 Tablet(s), Oral, once a day methotrexate (methotrexate 2.5 mg oral tablet) See Instructions 10 tablets weekly multivitamin (Super B Complex) 1 Tablet(s), Oral, once a day multivitamin with minerals (Calcium, Magnesium and Zinc oral tablet) 1 Tablet(s), Oral, once a day predniSONE (predniSONE 10 mg oral tablet) 1 Tablet(s), Oral, once a day This is a CHANGE primidone (primidone 50 mg oral tablet) 1 Tablet(s), Oral, once a day propranolol (Inderal LA 120 mg oral capsule, extended release) 1 cap, Oral, once a day triamterene-hydrochlorothiazide (triamterene-hydrochlorothiazide 37.5 mg-25 mg oral tablet) 1 Tablet(s), Oral, once a day as needed for Swelling venlafaxine (Effexor XR 150 mg oral capsule, extended release) 1 cap, Oral, once a day venlafaxine (Effexor XR 150 mg oral capsule, extended release) 1 cap, Oral, once a day venlafaxine (Effexor XR 75 mg oral capsule, extended release) 1 cap, Oral, once a day take with effexor XR 150 mg pill for total dose 225 mg per day Stop Taking the Following Medications: Medication list as of 01-02-16 13:54 Attention: If you have any medications at home that are not on this list, DO NOT take them until youcontact your provider for clarification. Give a copy of your medication list to your primary care provider. Update your medication list any time medications or doses are changed and carry your medication list at all times in case of emergency. 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 Intake/History Adult Archival Studies Professor Intake/History Entered On: 01/02/2016 13:27 CDT Performed On: 01/02/2016 13:24 CDT by JELLY HASSAN LPN Intake Chief Complaint : Fever, chills, heavy feeling chest Onset of Symptoms : 1 month Ambulatory Intake Additional Information : Pt is requestring a chest xray as she is prone to pnemonia Temperature Core : 36.4 DegC(Converted to: 97.5 DegF) (LOW) Peripheral Pulse Rate : 80 /min Respiratory Rate : 14 /min Heart Rhythm : Regular Systolic Blood Pressure : 138 mmHg Diastolic Blood Pressure : 66 mmHg NIBP Mean : 90 mmHg BP Location : Right upper extremity Blood Pressure Cuff Size : Large SpO2 : 95 % Oxygen Therapy : Room air Height : 176 cm(Converted to: 5 ft 9 inch(es), 69 inch(es)) Actual Weight : 110.5 kg(Converted to: 243 lb 10 oz) Weight Source : Standing scale Dosing Weight Clinic : 110.5 kg Clinic BSA : 2.32 Body Mass Index : 35.67 kg/m2 JELLY HASSAN LPN - 01/02/2016 13:24 CDT General Info Information Given By : Patient Preferred Communication Mode : Verbal Languages : [place]ralt[place] Is Patient Female and 13-50 no hysterectomy : No JELLY HASSAN LPN - 01/02/2016 13:24 CDT Subjective Pain Symptoms : JELLY Manuel LPN - 01/02/2016 13:24 CDT Dependent Habits Exposure to Tobacco Smoke : Other: never Smoking Status : Never smoker Tobacco 2A : No Tobacco Use/Currently Using : No Tobacco Use/Last 30 Days : No Tobacco Use/Last 12 months : No JELLY HASSAN LPN - 01/02/2016 13:24 CDT Caffeine Use Grid Caffeine Use : Current Type : Coffee Frequency : Daily Amount : couple cups daily JELLY HASSAN LPN 01/02/2016 13:24 CDT Recreational Drug Use Grid Drug Use : None JELLY HASSAN LPN 01/02/2016 13:24 CDT [facility] POWER[facility] Document Id: [id number] CDT!45 documented in this encounter Plan of Treatment Not on filedocumented as of this encounter Procedures Procedure Name Priority Date/Time Associated Diagnosis Comme nts DX CHEST AP OR PA Routine 01/02/2016 2:10 PM Resu lts for this AND LATERAL 2 VIEWS CDT procedur e are in the results section. AUTOMATED Routine 01/02/2016 2:00 PM Results f or this DIFFERENTIAL, B CDT procedure ar e in the results section. CBC WITH Routine 01/02/2016 2:00 PM Results f or this DIFFERENTIAL, B CDT procedure ar e in the results section. documented in this encounter Results DX Chest Anterior Posterior or Posterior Anterior and Lateral 2 Views (01/02/2016 2:10 PM CDT) Anatomical Region Laterality Modality Chest N/A Radiographic Imaging Specimen (Source) Anatomical Collection Method Collection Time Re ceived Time Location / / Volume Laterality 01/02/2016 2:10 PM CDT Addenda Addendum by Provider, Magali Navarrete o n 01/02/2016 2:10 PM CDT RAD^^^MA XR Chest 2 Views 01/02/2016 14:10:44 Narrative 01/16/2016 10:25 AM CDT Comparison: None History: 60 year old female with crackle s throughout, history of PMR Findings: There is no pneumothorax. The heart size and the pulmonary vascularity are within normal limits. No acute airspace opacity is observed. There are 2 small subcentimete r opacities in the mid and lower right lungs (as indicated on the r adiograph), that may represent vessels seen on end, or possib ly pulmonary nodules. There is no comparison available. Impression: 1. No pneumothorax. 2. No acute airspace disease. 3. 2 small opacities in the mid and lowe r right lung that may represent vessels seen on end, or possib ly pulmonary nodules. No comparison is available. Consider CT sca n of the chest for more complete characterization. Addendum: Impression: The pulmonary nodules seen i n the chest x-ray 01/02/2016 are calcified granulomata that are seen on the patient's CT scan of the chest 11/18/2004, there has been no in terval change. No additional imaging is recommended. Procedure Note Vincenzo Urbina M.D. / Provider, Jose Maria goncalves M.D. - 05/06/2017 Comparison: None History: 60 year old female with crackle s throughout, history of PMR Findings: There is no pneumothorax. The heart size and the pulmonary vascularity are within normal limits. No acute airspace opacity is observed. There are 2 small subcentimete r opacities in the mid and lower right lungs (as indicated on the r adiograph), that may represent vessels seen on end, or possib ly pulmonary nodules. There is no comparison available. Impression: 1. No pneumothorax. 2. No acute airspace disease. 3. 2 small opacities in the mid and lowe r right lung that may represent vessels seen on end, or possib ly pulmonary nodules. No comparison is available. Consider CT sca n of the chest for more complete characterization. Addendum: Impression: The pulmonary nodules seen i n the chest x-ray 01/02/2016 are calcified granulomata that are seen on the patient's CT scan of the chest 11/18/2004, there has been no in terval change. No additional imaging is recommended. Priscila Isaac(R) IMG DIAGNOSTIC IMAGING PROCE AIDEN Automated Differential (01/02/2016 2:00 PM CDT) P athologist Signature Absolute 5.33 1.70 - POWERCHART Neutrophils 7.00 109L Lymphocytes 1.42 0.90 - POWERCHART 2.90 X109L Monocytes 0.55 0.30 - POWERCHART 0.90 X109L Eosinophils 0.11 0.05 - POWERCHART 0.50 X109L Absolute 0.02 0.00 - POWERCHART Basophil 0.30 X109L Specimen Anatomical Collection Method Collection Time Receive d Time (Source) Location / / Volume Laterality Blood 01/02/2016 2:00 PM 6 2:00 CDT PM CDT Leilani Perez APRN, C.N.P., R.N. LAB BLOOD ADD-ON Performing Organization Address City/State/ZIP Code Phon e Number POWERCHART (ABNORMAL) CBC with Differential (01/02/2016 2:00 PM CDT) Patholo gist Method Time Signature Leukocytes 7.4 3.5 - 10.5 POWERCHART X109L Erythrocytes 3.61 (L) 3.90 - POWERCHART 5.03 F4295T Hemoglobin 11.5 (L) 12.0 - POWERCHART 15.5 GDL Hematocrit 35.9 34.9 - POWERCHART 44.5 MCV 99.4 (H) 81.6 - POWERCHART 98.3 FL HX RDW 13.5 11.9 - POWERCHART 15.5 Platelet Count 375 150 - 450 POWERCHART X109L HXDifferential? Auto POWERCHART Specimen (Source) Anatomical Collection Method Collection Time Re ceived Time Location / / Volume Laterality Blood 01/02/2016 2:00 PM CDT Leilani Perez APRN, C.N.P., R.N. LAB BLOOD ADD-ON Performing Organization Address City/State/ZIP Code Phon e Number POWERCHART documented in this encounter Visit Diagnoses Not on filedocumented in this encounter Additional Health Concerns Assessment Noted Time PHQ-9 Depression Total Score: 2 07/15/2014 11:54 AM CD T documented as of this encounter
--- OUTSIDE RECORDS SUMMARY | 2021-12-03 11:08 | XMS_ITS | Encounter Summary ---
:1955 Author Organization [facility] Address [address] [place] [address] Care Team Providers Name Role Phone Unavailable Primary Care Provider Unavailable Encounter Details Date Type Department Care Team Description 01/05/2016 Hospital Encounter HX NO MAPPING Leilani Montelongo, GABY , C.N.P., R.N. [address] [place], [place] [address] (Wo rk) Social History Tobacco Use Types [...] Miscellaneous - Conversion, Historical Provider Ser - 01/05/2016 11:59 PM CDT Coding Summary-Paper Based CODING DATE: 01/15/2016 FINAL [facility] STATUS: * Discharged to Home or Self Care PAYOR: [employer] ADMIT DX: REASON FOR VISIT DX: FINAL DX: PRINCIPAL: R53.83 Other fatigue SECONDARY: PROCEDURES DOCTOR NAME DATE NOTE: The code number assigned matches the documented diagnosis and / or procedure in the patient's chart. However, the narrative phrase printed from the coding software may appear abbreviated, or result in slightly different terminology. Coded By: BONNY LUU Date Saved: 01/15/2016 07:14 am Source: [facility] howsimple Document Id: [id number] documented in this encounter Plan of Treatment Not on filedocumented as of this encounter Visit Diagnoses Not on filedocumented in this encounter Additional Health Concerns Assessment Noted Time PHQ-9 Depression Total Score: 2 07/15/2014 11:54 AM CD T documented as of this encounter
--- OUTSIDE RECORDS SUMMARY | 2021-12-03 11:08 | XMS_ITS | Encounter Summary ---
:1955 Author Organization [facility] Address [address] [place] [address] Care Team Providers Name Role Phone Unavailable Primary Care Provider Unavailable Reason for Visit Reason Comments PRIYANK Nurse Cristiane Encounter Details Date Type Department Care Team Description 01/06/2021 Clinical Communication Division of PRIYANK [facility] [phone] [place], in (Work) [place], [place] [address] [place] [address] Social History Tobacco Use Types Packs/Day Years Used Date Smoking Tobacco: Never Sex Assigned at Date Recorded Not on file documented as of this encounter Miscellaneous Notes Telephone Encounter - Taylor Hicks R.N. - 01/06/2021 4:51 PM CDT Patient/caregiver calls inquiring about COVID-19, Influenza, RSV or Strep results. PLAN Endpoint recommendation: Results are still in process. Please call back if there are still no results after 72 hours. Patient agreeable to plan of care: Yes documented in this encounter Plan of Treatment Not on filedocumented as of this encounter Visit Diagnoses Not on filedocumented in this encounter Additional Health Concerns Infection Onset Date Last Indicated Resolved Time COVID19 Pending 01/05/2021 01/05/2021 01/07/2021 2:03 AM CDT Assessment Noted Time PHQ-9 Depression Total Score: 2 07/15/2014 11:54 AM CD T documented as of this encounter
--- OUTSIDE RECORDS SUMMARY | 2021-12-03 11:08 | XMS_ITS | Encounter Summary ---
:1955 Author Organization [facility] Address [address] [place] [address] Care Team Providers Name Role Phone Unavailable Primary Care Provider Unavailable Reason for Visit Reason Comments Patient Education Encounter Details Date Type Department Care Team Description 05/15/2020 Clinical Communication Department of Zehra Moore Education Infusion Therapy Geneva Mcclain in [address] [facility] [address] [place], [place] [phone] (Work) [phone] Social History Tobacco Use Types Packs/Day Years Used Date Smoking Tobacco: Never Sex Assigned at Date Recorded Not on file documented as of this encounter Miscellaneous Notes Telephone Encounter - Nichole Moore R.N. 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 from [facility] with a recommendation that you receive a monoclonal antibody infusion for the treatment of coronavirus disease 2019 (COVID-19). This medication could be either bamlanivimab or a casirivimab and imdevimab combination. This medication has been recommended for you after review of your medical records by a multidisciplinary physician team. While mostpeople do feel better in seven days, some people do develop serious respiratory complications which could lead to hospitalizations or even . You may have been told that there were no treatments atthe time of diagnosis, but this is a quickly developing area and this is a new [facility] recommended treat ment option for you. In the next few minutes I am going to give you more information about these medications to help you understand the possible risks and benefits of taking a monoclonal antibody infusion It is your choice to receive a monoclonal antibody infusion or stop at any time. ??? Receiving a monoclonal antibody infusion may benefit certain people with COVID-19. ??? This may decrease your risk for hospitalization by 10% to 3% ??? This may decrease the duration of your symptoms by 2 days ( from 8 days to 6 days) ??? You may be feeling well now or not that bad, however, you have been identified as someone who isat risk of developing worse symptoms, and this infusion is designed to prevent that and help you to continue feeling well. What is a monoclonal antibody infusion? These are investigational medicines used for the treatment of COVID-19, it can be used in peoplewho are: o Not in the hospital o Who do not have a new or increased oxygen requirement due to COVID-19 o Who have not tested positive for COVID-19 previously o Age 12 and older o Have mild or moderate symptoms o Weigh equal or more than 88 pounds o AND who are at high risk for developing severe COVID-19 symptoms or being hospitalized. Do you have new or increased oxygen requirement due to COVID 19? No, I do need to let you know that your vital signs will be taken on the arrival for the infusion center. If you are found to be in needof oxygen due to COVID-19 then you will not be infused with MAB rather you will be referred to an urgent care or ED for evaluation of worsening disease. Have you been previously tested and diagnosed with COVID-19? No. I need to let you know that these medications are investigational because it is still being studied.The FDA has approved the use of this medication under an EUA while data is still being collected; but early studies suggest that it reduces the risk of hospitalization. The FDA's Emergency Use Authorization (EUA) has authorized people to receive monoclonal antibody infusions for the treatment of mild COVID-19 . [facility] supports this treatment for certain people. Tell your healthcare provider about all of your medical conditions, including if you: ??? Have any allergies ??? Are or plan to become ??? Are or plan to breastfeed ??? Have any serious illnesses ??? Are taking any medications (prescription, [id number]-[id number], vitamins, and herbal products) How will I receive a monoclonal antibody infusion? Monoclonal antibodies are given to you through a vein in your arm over 1-2 hours. You will be observed for 1 hour after the infusion is complete to monitor for side effects You will receive one dose of a monoclonal antibody infusion by IV infusion. What are the important possible side effects of monoclonal antibodies? The most commonly reported side effects in clinical studies have been nausea, diarrhea, dizziness, headache, itching and vomiting. Serious reactions such as allergic reactions or infusion reactions have occurred but are uncommon. Tell your health care provider right away if you have any of the following signs or symptoms of an allergic reaction: fever, chills, nausea, headache, shortness of breath, low blood pressure, wheezing, swelling of your lips face or throat, rash including hives, itching, muscle aches and dizziness. Because monoclonal antibody infusions are still being studied, not a lot of people have been given monoclonal antibody infusions yet, and it is possible that not all of the risks are known at this time. Serious and unexpected side effects may happen. Specific studies have not been conducted to address the possible risks that a monoclonal antibody infusion could interfere with your body's own ability to fight off a future infection of SARS-CoV-2 and/or whether it could reduce your body's immune response to a vaccine for SARS-CoV-2 . Talk to your healthcare provider if you have any questions including whether the risks of serious SARS-CoV-2 infection outweigh the potential risks of monoclonal antibody infusion. Patients who receive a monoclonal antibody infusion are still eligible for a COVID-19 vaccine. Patients who receive monoclonal antibody therapies are advised to delay COVID vaccination for 90 days after receiving the monoclonal therapy. Some patients have expressed concerns about disrupting their vaccine schedule by accepting the monoclonal therapy. We strongly recommend that patients offered monoclonal therapies not decline treatments due to concerns about interfering with vaccination schedules. The vaccine is not an effective treatment for an acute COVID infection but an infusion of monoclonalantibodies is and existing data shows that the risk of re- infection with COVID-19 within 90 days is low. CDC experts agree that the benefits of monoclonal therapies is greater than the risk of delaying vaccination. We wanted you to know that [facility] is encouraging you to treat the illness you have now, this will help you right away and intermediate designer while still being eligible for the vaccine. Have you had a COVID-19 vaccine? No I am happy to share with you that since january [facility] has infused over [phone] patients witha monoclonal antibody infusion across our [place] sites. I am sharing this because we have not seen any serious side effects in the patients who chose to receive the infusion. The side effects that we are seeing are similar to patients who chose not to receive the medication at all. Patients have reported to us mild fever, diarrhea, chills for a short while, and/or hives. What other treatment choices are there? Like monoclonal antibody infusions, the FDA may allow for the emergency use of other medicines to treat people with COVID-19. Go to https://www.phacd78iblmacstwzyzukapsym.nih.gov/ for information on the emergency use of other medicines that are not approved by FDA to treat people with COVID- 19. Your healthcare provider may talk with you about clinical trials you may be eligible for. It is your choice to be treated or not to be treated with a monoclonal antibody infusion. Should youdecide not to receive a monoclonal antibody infusion or stop it at any time, it will not change yourstandard medical care. Are you or ? No. How do I report side effects with monoclonal antibody infusion? Tell your healthcare provider right away if you have any urgent side effects. For non-urgent side effects or side effects that bothers you or does not go away please the care team coordinating your COVID care during business hours. This may be your primary care provider, your COVID care team or your remote monitoring nurse team, which ever is applicable after emergency care, if needed, has been reached. Report side effects to FDA MedWatch at www.fda.gov/medwatch, call 8-879-HNN-6813. How can I learn more? Ask your healthcare provider ??? Visit https://www.uhvoo20rntqkacjpafnpshkwyh.nih.gov/ ??? Contact your local or state public health department Would you like to learn more about what an Emergency Use Authorization ( EUA)?Yes; The [facility] has made these monoclonal antibody infusions available under an emergency access mechanism called an EUA. The EUA is supported by a [place] of Health and Human Service (HHS) declaration that circumstances exist to justify the emergency use of drugs and biological products during the COVID-19 pandemic. What is the cost for this medication? The medication is provided to [facility] at no charge and there is not cost of the medication to you the patient. Any associated costs with the infusion will be billed to the patient's insurance company. [facility] does not want cost to be a barrier to infusion so please let us know at your infusion if youneed more information or are worried about cost being a barrier. If you are uninsured or underinsured you will still be able to receive this medication free of cost. Please know that there has been a large review by pharmacists, and this medication is not likely to interfere with any normal medication patients may be taking. This is possible as your body processes this medication differently than standard prescription medications. Given how this medication helps your body it is better to receive this medication as soon as possible if you agree to the infusion. I want to let you know that there is no known evidence that one of these medications is better or worse than another in terms of effectiveness or known risk of side effects. Please also know that the medication you will receive will be by chance based on the medication supply, infusion location, and the date of your appointment. Please know that our team is offering and will provide you this treatment for COVID-19 as part of a larger team that is coordinating your overall care. If you have continued questions after your infusion or your symptoms get worse please reach out to the team coordinating your clinical care, either a COVID-19 focused team or your primary care provider's office. If you have a patient portal please look at your messages as there may be one awaiting your review from the clinical team coordinating your care. Do you agree/consent to receive this infusion? Yes; The following education has been completed in accordance with the FDA Emergency Use Authorization (EUA) requirements: Informed patient/caregiver thatmonoclonal antibody infusions are an unapproved drug that is authorized for use under this EUA. Informed patient/caregiver of alternatives to receiving authorized monoclonal antibody infusions The Fact Sheet for Patients, Parents and Caregivers will be provided to patient/caregiver at the [facility]. Thank you for your time, I will connect with the rest of the team to let them know the results of this phone call. PLAN Disposition/Recommendation: self-care IS appropriate at this time, patient encouraged to call back with questions Information/Education: patient/caller able to teach back Caller agreeable to plan of care: yes The following references were used: Monoclonal Antibody Infusion Protocol RAFT REFUELLER documented in this encounter Plan of Treatment Not on filedocumented as of this encounter Visit Diagnoses Diagnosis COVID-19 Infection - Primary documented in this encounter Additional Health Concerns Infection Onset Date Last Indicated Resolved Time COVID19 05/14/2020 05/14/2020 06/03/2020 4:46 AM CDT Assessment Noted Time PHQ-9 Depression Total Score: 2 07/15/2014 11:54 AM CD T documented as of this encounter
--- OUTSIDE RECORDS SUMMARY | 2021-12-03 11:08 | XMS_ITS | Encounter Summary ---
:1955 Author Organization [facility] Address [address] [place] [address] Care Team Providers Name Role Phone Unavailable Primary Care Provider Unavailable Encounter Details Date Type Department Care Team Description 01/05/2021 Admin Visit Urgent Care, [facility], in [place], [place] [address] [place], [place] [id number] Social History Tobacco Use Types Packs/Day [...]
--- OUTSIDE RECORDS SUMMARY | 2021-12-03 11:08 | XMS_ITS | Encounter Summary ---
:1955 Author Organization [facility] Address [address] [place] [address] Care Team Providers Name Role Phone Unavailable Primary Care Provider Unavailable Encounter Details Date Type Department Care Team Description 01/05/2016 Hospital Encounter HX NO MAPPING Galilea Mayers M.D. Social History Tobacco Use Types Packs/Day Years [...] ORAL) daily. documented as of this encounter Plan of Treatment Not on filedocumented as of this encounter Visit Diagnoses Not on filedocumented in this encounter Additional Health Concerns Assessment Noted Time PHQ-9 Depression Total Score: 2 07/15/2014 11:54 AM CD T documented as of this encounter
--- OUTSIDE RECORDS SUMMARY | 2021-12-03 11:08 | XMS_ITS | Encounter Summary ---
:1955 Author Organization [facility] Address [address] [place] [address] Care Team Providers Name Role Phone Unavailable Primary Care Provider Unavailable Encounter Details Date Type Department Care Team Description 05/14/2020 Admin Visit Department of Family Medicine in [place] [phone] Social History Tobacco Use Types Packs/Day Years Used Date Smoking Tobacco: Never Sex Assigned at Date Recorded Not on file documented as of this encounter Plan of Treatment Not on filedocumented as of this encounter Visit Diagnoses Not on filedocumented in this encounter Additional Health Concerns Infection Onset Date Last Indicated Resolved Time COVID19 Pending 05/14/2020 05/14/2020 05/14/2020 10:35 PM BILLIARD PARLOR MANAGER Assessment Noted Time PHQ-9 Depression Total Score: 2 07/15/2014 11:54 AM CD T documented as of this encounter
--- OUTSIDE RECORDS SUMMARY | 2021-12-03 11:08 | XMS_ITS | Encounter Summary ---
:[address] [facility] Address [address] [place] [address] Care Team Providers Name Role Phone Unavailable Primary Care Provider Unavailable Reason for Visit Reason Onset Date Comments Outpatient COVID-19 Testing 01/26/2020 Encounter Details Date Type Department Care Team Description 01/26/2020 External Outreach Department of [facility], [facility] ([place], [place] C.N.P., D.N.P. Dx) [address] [facility] [address] [place] [address] [place], [place] [phone] Social History Tobacco Use Types Packs/Day Years Used Date Smoking Tobacco: Never Sex Assigned at Date Recorded Not on file documented as of this encounter Progress Notes Jeane Rodriguez, R.MAaronA. - 01/26/2020 7:50 AM CST Encounter created for the drive-through COVID-19 testing. PATIAL INTELLIGENCE ANALYST documented in this encounter Plan of Treatment Not on filedocumented as of this encounter Procedures Procedure Name Priority Date/Time Associated Diagnosis Comme nts SARS CORONAVIRUS-2 Routine 01/26/2020 10:12 AM Infection Upper Results for this RNA, V GEOSPATIAL INTELLIGENCE ANALYST Respiratory procedure are i n the results section. documented in this encounter Results SARS Coronavirus-2 RNA, V Symptomatic (01/26/2020 10:12 AM GEOSPATIAL INTELLIGENCE ANALYST) [facility] gist Method Time Signature SARS-CoV-2 Swab, 01/27/2020 [facility]TO Specimen Nasopharynx 6:41 PM GEOSPATIAL INTELLIGENCE ANALYST Source SARS CoV-2 Undetected Undetected 01/27/2020 MKTO RNA, TMA 6:41 PM GEOSPATIAL INTELLIGENCE ANALYST Comment: SARS-CoV-2 RNA absent. This result does not rule out COVID-19 in the patient, as the sensitivity of the test depends o n the timing of the specimen collection and the quality of the specim en. Result should be correlated with patient's history and clinical presentat ion. ----ADDITIONAL INFORMATION---- This test is performed using the Aptima SARS-CoV-2 assay ([employer] which has received Emergency Use Authori zation (EUA) by the U.S. Food and Drug Administration. Fact sheets for this Emergency Use Autho rization (EUA) assay can be found at the following links: For Healthcare Providers: https://www.fd a.gov/media/054427/download For Patients: https://www.fda.gov/media/ 040951/download Specimen Anatomical Collection Method Collection Time Receive d Time (Source) Location / / Volume Laterality Varies 01/26/2020 10:12 01/27/2020 (Nasopharynx) AM GEOSPATIAL INTELLIGENCE ANALYST 12:47 PM GEOSPATIAL INTELLIGENCE ANALYST Radha Rg APRN.N.P., D.N.P. LAB MICROBIOLOGY - GENERAL ORDERABLES Performing Organization Address City/State/ZIP Code Phon e Number [facility]- [address] [place] [id number] [place] [address] [place] [address] System in [address] documented in this encounter Visit Diagnoses Diagnosis Infection Upper Respiratory - Primary documented in this encounter Additional Health Concerns Infection Onset Date Last Indicated Resolved Time COVID19 Pending 01/26/2020 01/26/2020 01/27/2020 6:42 PM GEOSPATIAL INTELLIGENCE ANALYST Assessment Noted Time PHQ-9 Depression Total Score: 2 07/15/2014 11:54 AM CD T documented as of this encounter
--- OUTSIDE RECORDS SUMMARY | 2021-12-03 11:08 | XMS_ITS | Encounter Summary ---
:1955 Author Organization [facility] Address [address] [place] [address] Care Team Providers Name Role Phone Unavailable Primary Care Provider Unavailable Reason for Visit Reason Comments COVID Inquiry Encounter Details Date Type Department Care Team Description 04/19/2020 Clinical Communication Central Appointment Line, Covid COVID Inquiry Office in [facility] [address] [place] [address] Social History Tobacco Use Types Packs/Day Years Used Date Smoking Tobacco: Never Sex Assigned at Date Recorded Not on file documented as of this encounter Miscellaneous Notes Telephone Encounter - Nuris Zeng V. - 04/19/2020 1:13 PM CST COVID-19 Nurse Line Screening ASSESSMENT PLAN Endpoint recommendation: Screening negative, COVID- 19 testing indicated per request for travel related reasons, sent to [facility] located at [address] [facility]. You need to call [phone] between 8am to 6pm M-F to schedule an appointment time. Testing hours are M-F 9 am to 4 pm. When you arrive, remain in your vehicle and check-in by scanning the QR code posted on signage and completing the online form. If you do not have a phone, ring the doorbell for service. Entrance is under theblue awning. and Please avoid using public transportation per CDC recommendation. If you do not havepersonal transportation please self-quarantine until a personal transportation option is available. Care Points: -Wash hands frequently with soap and water for at least 20 seconds -If soap and water are not available, use a hand men's leather dress belt maker -Avoid touching your eyes, nose and mouth. -Clean and disinfect high-touch surfaces routinely. -Wear a mask over your nose and mouth. A cloth face cover is not a substitute for social distancing -Continue to keep about 6 feet between yourself and others. -Avoid public areas and public transportation. -Find new ways to connect with family and friends, get support and share feelings. -Seek emergent care if any of the following occur Trouble breathing Bluish lips or face Persistent pain or pressure in the chest New confusion or inability to rouse. -Notify your regular care provider of any new or worsening symptoms. Asymptomatic without exposure Carepoints: Testing is not recommended at this time. If you become symptomatic, please call back for additional screening. Education: Not applicable Patient agreeable to plan of care: Yes The following references were used: [facility] novel coronavirus (COVID- 19) resources BARBER documented in this encounter Plan of Treatment Not on filedocumented as of this encounter Visit Diagnoses Not on filedocumented in this encounter Additional Health Concerns Assessment Noted Time PHQ-9 Depression Total Score: 2 07/15/2014 11:54 AM CD T documented as of this encounter
--- OUTSIDE RECORDS SUMMARY | 2021-12-03 11:08 | XMS_ITS | Encounter Summary ---
:1955 Author Organization [facility] Address [address] [place] [address] Care Team Providers Name Role Phone Unavailable Primary Care Provider Unavailable Encounter Details Date Type Department Care Team Description 12/12/2015 Hospital En[facility] Wendy De Los Santos M.B.B.S. [address] [place], [place] [phone] (Wo rk) Social History Tobacco Use Types [...] - - Height 176 cm (5' 9.29) 12/12/2015 9:28 AM CDT Body Mass Index - - [...] Procedure Name Priority Date/Time Associated Comments Diagnosis AUTOMATED DIFFERENTIAL, Routine 12/12/2015 9:40 R esults for this B AM CDT procedure are i n the results section. SEDIMENTATION RATE, B Routine 12/12/2015 9:40 Res ults for this AM CDT procedure are i n the results section. CBC WITH DIFFERENTIAL, B Routine 12/12/2015 9:40 Results for this AM CDT procedure are i n the results section. C-REACTIVE PROTEIN Routine 12/12/2015 9:40 Result s for this (CRP), S/P AM CDT procedure are i n the results section. ASPARTATE Routine 12/12/2015 9:40 Results for this AMINOTRANSFERASE (AST), AM CDT proc edure are in S/P the results section. CREATININE WITH EGFR, Routine 12/12/2015 9:40 Res ults for this S/P AM CDT procedure are i n the results section. documented in this encounter Results Automated Differential (12/12/2015 9:40 AM CDT) athologist Signature Absolute 4.39 1.70 - POWERCHART Neutrophils 7.00 109L Lymphocytes 1.60 0.90 - POWERCHART 2.90 X109L Monocytes 0.56 0.30 - POWERCHART 0.90 X109L Eosinophils 0.11 0.05 - POWERCHART 0.50 X109L Absolute 0.02 0.00 - POWERCHART Basophil 0.30 X109L Specimen Anatomical Collection Method Collection Time Receive d Time (Source) Location / / Volume Laterality Blood 12/12/2015 9:40 AM 6 9:40 CDT AM CDT Nicole ParisB.S. LAB BLOOD ADD-ON Performing Organization Address City/State/ZIP Code Phon e Number POWERCHART (ABNORMAL) Sedimentation Rate (12/12/2015 9:40 AM CDT) [facility] Method Time Signature Sedimentation 43 (H) 0 - 29 POWERCHART Rate, B MMHR Specimen (Source) Anatomical Collection Method Collection Time Re ceived Time Location / / Volume Laterality Blood 12/12/2015 9:40 AM CDT Nicole ParisB.S. LAB BLOOD ADD-ON Performing Organization Address City/State/ZIP Code Phon e Number POWERCHART (ABNORMAL) CBC with Differential (12/12/2015 9:40 AM CDT) Patholo gist Method Time Signature Leukocytes 6.7 3.5 - POWERCHART 10.5 X109L Erythrocytes 3.78 (L) 3.90 - POWERCHART 5.03 [id number] Hemoglobin 12.1 12.0 - POWERCHART 15.5 GDL Hematocrit 37.8 34.9 - POWERCHART 44.5 MCV 100.0 (H) 81.6 - POWERCHART 98.3 FL HX RDW 14.0 11.9 - POWERCHART 15.5 Platelet Count 284 150 - 450 POWERCHART X109L HXDifferential? Auto POWERCHART Specimen (Source) Anatomical Collection Method Collection Time Re ceived Time Location / / Volume Laterality Blood 12/12/2015 9:40 AM CDT Nicole BarreraSAaron LAB BLOOD ADD-ON Performing Organization Address City/State/ZIP Code Phon e Number POWERCHART (ABNORMAL) CRP (C-Reactive Protein) (12/12/2015 9:40 AM CDT) athologist Signature C-Reactive 10.7 (H) <=4.9 MGL POWERCHART Protein (CRP), S Specimen (Source) Anatomical Collection Method Collection Time Re ceived Time Location / / Volume Laterality Blood 12/12/2015 9:40 AM CDT Nicole BarreraS. LAB BLOOD ADD-ON Performing Organization Address City/State/ZIP Code Phon e Number POWERCHART Creatinine with eGFR (12/12/2015 9:40 AM CDT) athologist Signature Creatinine 0.6 0.6 - 1.1 POWERCHART MGDL HXeGFR (MDRD) >60.0 >=60.0 POWERCHART MLMINSA eGFR >60.0 >=60.0 POWERCHART Black/ MLMINSA [place] Specimen (Source) Anatomical Collection Method Collection Time Re ceived Time Location / / Volume Laterality Blood 12/12/2015 9:40 AM CDT Nicole BarreraSAaron LAB BLOOD ADD-ON Performing Organization Address City/State/ZIP Code Phon e Number POWERCHART AST (Aspartate Aminotransferase) (12/12/2015 9:40 AM CDT) [facility] gist Method Time Signature Aspartate 29 8 - 43 UL POWERCHART Aminotransferase (AST), S Specimen (Source) Anatomical Collection Method Collection Time Re ceived Time Location / / Volume Laterality Blood 12/12/2015 9:40 AM CDT Nicole Mariano LAB BLOOD ADD-ON Performing Organization Address City/State/ZIP Code Phon e Number POWERCHART documented in this encounter Visit Diagnoses Not on filedocumented in this encounter Additional Health Concerns Assessment Noted Time PHQ-9 Depression Total Score: 2 07/15/2014 11:54 AM CD T documented as of this encounter
--- OUTSIDE RECORDS SUMMARY | 2021-12-03 11:08 | XMS_ITS | Encounter Summary ---
:1955 Author Organization [facility] Address [address] [place] [address] Care Team Providers Name Role Phone Unavailable Primary Care Provider Unavailable Reason for Visit Reason Comments COVID Nurse Line Encounter Details Date Type Department Care Team Description 05/12/2020 Clinical Communication Division of Yajaira Ornelas CO VID Nurse Cristiane [facility] R.N. [facility] [place] [address] [place] [address] in [facility] [phone] [place] [phone] [address] [facility] (Work) [place] [phone] Social History Tobacco Use Types Packs/Day Years Used Date Smoking Tobacco: Never Sex Assigned at Date Recorded Not on file documented as of this encounter Miscellaneous Notes Telephone Encounter - Yajaira Ornelas, R.N. - 05/12/2020 5:28 PM CST COVID-19 Nurse Line Screening ASSESSMENT Region Select appropriate region: : [place] Age Pathway Select approprite pathway: : Adult Have you had close contact* with a person who has a LABORATORY CONFIRMED case of COVID-19 in the past 14 days?: No (Continue Screening) In the last 48 hours, have you had a fever* OR symptoms that are unrelated to a preexisting illness?: No symptoms noted (Continue Screening) Have you tested positive for COVID-19 in the last 90 days?: No (Continue Screening) Have you been advised to undergo testing or are you requesting testing?: Yes, COVID-19 testing recommended (End Screening) Testing Recommendation Endpoint Is testing recommended? : Recommended to test Patient is returning from travel and requires testing for work. PLAN Endpoint recommendation: Screening positive, testing indicated, advised to be swabbed for COVID-19 Only , sent to [facility] located at [address] [facility]. You need to call [phone] between 8am to 6pm M-F to schedule an appointment time. Testing hours are M-F 9 am to 4 pm. When you arrive, remain in your vehicle and check-in by scanning the QR code posted on signage and completing theonline form. If you do not have a phone, ring the doorbell for service. Entrance is under the blue awning. and Please avoid using public transportation per CDC recommendation. If you do not have personal transportation please self-quarantine until a personal transportation option is available. Care Points: -Wash hands frequently with soap and water for at least 20 seconds -If soap and water are not available, use a hand job printer -Avoid touching your eyes, nose and mouth. [...] or worsening symptoms. Asymptomatic without exposure Carepoints: If your COVID-19 result is negative and you become symptomatic consider retesting after 72 hours. Education: Patient/caregiver able to teach back Patient agreeable to plan of care: Yes The following references were used: [facility] novel coronavirus (COVID- 19) resources Nursing judgement KEN CUTTER documented in this encounter Plan of Treatment Not on filedocumented as of this encounter Visit Diagnoses Not on filedocumented in this encounter Additional Health Concerns Assessment Noted Time PHQ-9 Depression Total Score: 2 07/15/2014 11:54 AM CD T documented as of this encounter
--- OUTSIDE RECORDS SUMMARY | 2021-12-03 11:08 | XMS_ITS | Encounter Summary ---
:1955 Author Organization [facility] Address [address] [place] [address] Care Team Providers Name Role Phone Unavailable Primary Care Provider Unavailable Reason for Visit Reason Comments Patient Education Monoclonal antibody infusio n therapy for COVID 19 Encounter Details Date Type Department Care Team Description 01/31/2021 Clinical Department of Jayme, Patient Educat ion Communication Infusion Therapy Paco Roque ( Monoclonal in [place] [id number] [facility] antibody infusion [place], [place] therapy for COVID [address] [place] [phone] 19) [place], [place] [phone] (Work) [phone] Social History Tobacco Use Types Packs/Day Years Used Date Smoking Tobacco: Never Sex Assigned at Date Recorded Not on file documented as of this encounter Miscellaneous Notes Telephone Encounter - Nadine Delacruz R.N. - 01/31/2021 2:19 PM FLAG CAR DRIVER Hi, my name is Maura Delacruz R.N. from [facility] with a recommendation that you receive a monoclonal antibody infusion for the treatment of coronavirus disease 2019 (COVID-19). These medications area combination of casirivimab and imdevimab, bamlanivimab and etesevimab, or it will be sotrovimab. These medications have been recommended for you after review of your medical records by a multidisciplinary physician team. While most people do feel better in seven days, some people do develop serious respiratory complications which could lead to hospitalizations or even . You may have been told that there were no treatments at the time of diagnosis, but this is a quickly developing area and this is a new [facility] recommended treatment option for you. In the next few minutes, I am going to give youmore information about these medications to help you understand the possible risks and benefits of taking a monoclonal antibody infusion. It is your choice to receive a monoclonal antibody infusion or stop at any time. ??? Receiving a monoclonal antibody infusion may benefit certain people with COVID-19. ??? This may decrease your risk for hospitalization by 10% to 3% ??? This may decrease the duration of your symptoms by 2 days (from 8 days to 6 days) ??? You may be feeling well now or not that bad, however, you have been identified as someone who isat risk of developing worse symptoms, and this infusion is designed to prevent that and help you to continue feeling well. What is a monoclonal antibody infusion? These are investigational medicines used for the treatment of COVID-19. It can be used in peoplewho are: o Not in the hospital o Who do not have a new or increased oxygen requirement due to COVID-19 o Who have not previously tested positive for COVID-19 within the last 90 days o Age 12 and older o Have mild or moderate symptoms o Weigh equal or more than 88 pounds o AND who are at high risk for developing severe COVID-19 symptoms or being hospitalized. ??? Monoclonal antibodies are laboratory made proteins that mimic the immune system's ability to fight off harmful pathogens such as viruses. These medications are specifically directed against the COVID-19 spike protein, designed to block the virus' attachment and entry into human cells. Do you have new or increased oxygen [...] or ED for evaluation of worsening disease. Are you having COVID symptoms now? Yes, if so what date did they start 01/24 Have you been previously tested and diagnosed with COVID-19? Yes; What was the date the of your first positive test? may 2020, I need to know this for a few reasons, if it has been more than 10 days prior to today, I am sorry to let you know we can not offer MAB as you are outside the infusion window. However, if your first positive test was more than 90 days prior you are eligible for MAB infusion. I need to let you know that [...] antibody infusions for the treatment of mild COVID-19. [facility] supports this treatment for certain people. Tell your healthcare provider about all of your medical conditions, including if you: ??? Have any allergies ??? Are or plan to become ??? Are or plan to breastfeed ??? Have any serious illnesses ??? Are taking any medications (prescription, kwlg-cgu-foporrd, vitamins, and herbal products) How will I receive a monoclonal antibody infusion? Monoclonal antibodies are given to you through a vein in your arm over approximately 30 - 60 minutes. You will be observed for 1 hour after the infusion is complete to monitor for side effects. You will receive one dose of the monoclonal antibody infusion by IV infusion. What [...] vaccination. We wanted you to know that [facility] is encouraging you to treat the illness you have now, this will help you right away and longterm while still being eligible for the vaccine. We also strongly encourage you to get your flu vaccine this year once your isolation has ended and you are feeling well. Have you had a COVID-19 vaccine? Yes; if so what date? 08/2020; Thank you for sharing. I am still able to schedule your MAB infusion, but need to make sure you know that your next dose of the COVID-19 vaccine needs to be 90 days after your MAB infusion. I wanted to share with you that if you have completed your COVID 19 vaccine series and then test positive while being symptomatic you are eligible to receive MAB. MAB has been shown to benefit COVID-19 patients who have previously been vaccinated. I am happy to share with you that since January 2020 [facility] has infused over 16,800 patients with a monoclonal antibody infusion across our [place] sites. I am sharing this because we havenot seen any serious side effects in the patients who choose to receive the infusion. The side effects that we are seeing are similar to patients who choose not to receive the medication at all. Patients have reported to us mild fever, diarrhea, chills for a short while, and/or hives. What other treatment choices are there? Like monoclonal antibody infusions, the FDA may allow for the emergency use of other medicines to treat people with COVID-19. Go to https://www.sojau29lkwvicdffeutmndihhz.nih.gov/ for information on the emergency use of [...] you or does not go away please contact the care team coordinating your COVID care during business hours. This may be your primary care provider, your COVID care team or your remote monitoring nurse team, which ever is applicable after emergency care, if needed, has been reached. Report side effects to [employer] at www.fda.gov/medOncovisiontch, call 7-485-GQK-3981. How can I learn more? Ask your healthcare provider ??? Visit https://www.gdjrw39fwehojjdgqpnuruemnn.nih.gov/ ??? Contact your local or state public health department Would you like to learn more about what an Emergency Use Authorization (EUA)?Yes; The [place] FDA has made these monoclonal antibody infusions available under an emergency access mechanism calledan EUA. The EUA is supported by a [place] of Health and Human Service (HHS) declaration that circumstances exist to justify the emergency use of drugs and biological products during the COVID-19 pandemic. What is the cost for this medication? The medication is provided to [facility] at no charge and there is no cost of the medication to youthe patient. Any associated costs with the infusion will be billed to the patient's insurance company. [facility] does not want cost to be a barrier to infusion so please let us know at your infusion if you need more information or are worried about cost being a barrier. If you are uninsured or underinsuredyou will still be able to receive this [...] possible if you agree to the infusion. Please know that our team is offering [...] will be provided to patient/caregiver at the [facility]. Thank you for your time, I will connect with the rest of the team to let them know the results of this phone call. SUBJECTIVE CHIEF COMPLAINT / REASON FOR CALL Patient Education ( Monoclonal antibody infusion therapy for COVID 19) ASSESSMENT PLAN Disposition/Recommendation: protocol orders. Information/Education: patient/caller able to teach back. Caller agreeable to plan of care: yes. The following references were used: Monoclonal antibody infusion therapy protocol. CAR DRIVER documented in this encounter Plan of Treatment Not on filedocumented as of this encounter Visit Diagnoses Diagnosis COVID-19 Infection - Primary documented in this encounter Additional Health Concerns Infection Onset Date Last Indicated Resolved Time COVID19 01/30/2021 01/30/2021 02/19/2021 5:07 AM FLAG CAR DRIVER Assessment Noted Time PHQ-9 Depression Total Score: 2 07/15/2014 11:54 AM CD T documented as of this encounter
--- OUTSIDE RECORDS SUMMARY | 2021-12-03 11:08 | XMS_ITS | Encounter Summary ---
:1955 Author Organization [facility] Address [address] [place] [address] Care Team Providers Name Role Phone Unavailable Primary Care Provider Unavailable Encounter Details Date Type Department Care Team Description 10/28/2020 Orders Only [facility] Vic Sanchez, PrimoOAaron [address] [place] [phone] (Wo rk) Social History Tobacco Use Types [...]
--- OUTSIDE RECORDS SUMMARY | 2021-12-03 11:08 | XMS_ITS | Encounter Summary ---
:1955 Author Organization [facility] Address [address] [place] [address] Care Team Providers Name Role Phone Unavailable Primary Care Provider Unavailable Encounter Details Date Type Department Care Team Description 04/19/2016 Hospital Encounter HX [facility] Galilea Mayers M.D . Social History Tobacco Use Types [...] - - Height 176 cm (5' 9.29) 04/19/2016 1:57 PM NUCLEAR ENGINEERING TECHNICIAN Body Mass Index - - documented in [...] of this encounter Miscellaneous Notes Miscellaneous - Citlali Gurrola R.M.A. - 07/13/2016 1:27 PM CDT PCP Change Please From: CITLALI GURROLA ([facility] Nurse) To: MD [place] Patient Access; Sent: 07/13/2016 13:27:44 CDT Subject: PCP Change Please PCP Field Change Request Reason for PCP Field Change Request: (X ) Patient Transferring Care to another non-[facility] facility (ex. Moved out of state) change to PCP, Elsewhere-06/2016 [facility] ( ) Patient seenby another [facility] provider for primary care needs. Provide name of new PCP. ( ) Other: (narrate reason) Note: If patient is , nursing to notify HIM in order to enter a date into the EMR.*Ensure EMR documentation supports reason for change. ( ) Yes or ( ) No Patient has been contacted (if no, then Patient Access will call) Source: [facility] [employer] Document Id: [id number] Electronically signed by Conversion, [facility] Flight Attendant Ramp [id number] at 08/23/2016 11:35 PM CDT documented in this encounter Plan of Treatment Not on filedocumented as of this encounter Procedures Procedure Name Priority Date/Time Associated Comments Diagnosis AUTOMATED DIFFERENTIAL, Routine 04/19/2016 2:25 R esults for this B PM NUCLEAR ENGINEERING TECHNICIAN procedure are i n the results section. CBC WITH DIFFERENTIAL, B Routine 04/19/2016 2:25 Results for this PM NUCLEAR ENGINEERING TECHNICIAN procedure are i n the results section. ASPARTATE Routine 04/19/2016 2:25 Results for this AMINOTRANSFERASE (AST), PM NUCLEAR ENGINEERING TECHNICIAN proc edure are in S/P the results section. CREATININE WITH EGFR, Routine 04/19/2016 2:25 Res ults for this S/P PM NUCLEAR ENGINEERING TECHNICIAN procedure are i n the results section. documented in this encounter Results Automated Differential (04/19/2016 2:25 PM NUCLEAR ENGINEERING TECHNICIAN) P athologist Signature Absolute 5.29 1.70 - POWERCHART Neutrophils 7.00 109L Lymphocytes 1.62 0.90 - POWERCHART 2.90 X109L Monocytes 0.53 0.30 - POWERCHART 0.90 X109L Eosinophils 0.14 0.05 - POWERCHART 0.50 X109L Absolute 0.02 0.00 - POWERCHART Basophil 0.30 X109L Specimen Anatomical Collection Method Collection Time Receive d Time (Source) Location / / Volume Laterality Blood 04/19/2016 2:25 PM 7 2:25 NUCLEAR ENGINEERING TECHNICIAN PM NUCLEAR ENGINEERING TECHNICIAN Nicole BarreraS. LAB BLOOD ADD-ON Performing Organization Address City/State/ZIP Code Phon e Number POWERCHART (ABNORMAL) CBC with Differential (04/19/2016 2:25 PM NUCLEAR ENGINEERING TECHNICIAN) [facility] Method Time Signature Leukocytes 7.6 3.5 - POWERCHART 10.5 X109L Erythrocytes 3.87 (L) 3.90 - POWERCHART 5.03 [id number] Hemoglobin 12.5 12.0 - POWERCHART 15.5 GDL Hematocrit 39.0 34.9 - POWERCHART 44.5 MCV 100.8 (H) 81.6 - POWERCHART 98.3 FL HX RDW 13.3 11.9 - POWERCHART 15.5 Platelet Count 323 150 - 450 POWERCHART X109L HXDifferential? Auto POWERCHART Specimen (Source) Anatomical Collection Method Collection Time Re ceived Time Location / / Volume Laterality Blood 04/19/2016 2:25 PM NUCLEAR ENGINEERING TECHNICIAN Nicole BarreraS. LAB BLOOD ADD-ON Performing Organization Address City/State/ZIP Code Phon e Number POWERCHART Creatinine with eGFR (04/19/2016 2:25 PM NUCLEAR ENGINEERING TECHNICIAN) athologist Signature Creatinine 0.7 0.6 - 1.1 POWERCHART MGDL HXeGFR (MDRD) >60.0 >=60.0 POWERCHART MLMINSA eGFR >60.0 >=60.0 POWERCHART Black/ MLMINSA [place] Specimen (Source) Anatomical Collection Method Collection Time Re ceived Time Location / / Volume Laterality Blood 04/19/2016 2:25 PM NUCLEAR ENGINEERING TECHNICIAN Nicole BarreraS. LAB BLOOD ADD-ON Performing Organization Address City/State/ZIP Code Phon e Number POWERCHART AST (Aspartate Aminotransferase) (04/19/2016 2:25 PM NUCLEAR ENGINEERING TECHNICIAN) [facility] Method Time Signature Aspartate 21 8 - 43 UL POWERCHART Aminotransferase (AST), S Specimen (Source) Anatomical Collection Method Collection Time Re ceived Time Location / / Volume Laterality Blood 04/19/2016 2:25 PM NUCLEAR ENGINEERING TECHNICIAN Nicole BarreraS. LAB BLOOD ADD-ON Performing Organization Address City/State/ZIP Code Phon e Number POWERCHART documented in this encounter Visit Diagnoses Not on filedocumented in this encounter Additional Health Concerns Assessment Noted Time PHQ-9 Depression Total Score: 2 07/15/2014 11:54 AM CD T documented as of this encounter
--- OUTSIDE RECORDS SUMMARY | 2021-12-03 11:08 | XMS_ITS | Encounter Summary ---
:1955 Author Organization [facility] Address [address] [place] [address] Care Team Providers Name Role Phone Unavailable Primary Care Provider Unavailable Reason for Visit Reason Onset Date Comments Testing For Upper Respiratory Virus Symptoms 03/24/2020 Encounter Details Date Type Department Care Team Description 03/24/2020 External Outreach Department of [facility] Danielle Rodrigez , Contact With And (Suspected) Exposure To COVID-19; Medicine in [place] GABY, C.N.P. Infection Upper Respiratory [place], [place] [address] [place] [id number] [phone] Social History Tobacco Use Types Packs/Day Years Used Date Smoking Tobacco: Never Sex Assigned at Date Recorded Not on file documented as of this encounter Last Filed Vital Signs Vital Sign Reading Time Taken Comments Blood Pressure - - Pulse - - Temperature - - Respiratory Rate - - Oxygen Saturation - - Inhaled Oxygen Concentration - - Weight - - Height 177.8 cm (5' 10) 03/24/2020 11:28 AM FLAT EXAMINER Body Mass Index - - documented in this encounter Progress Notes Shruti Corral RTrino - 03/24/2020 7:44 AM CST Encounter created for symptomatic infectious disease screening with possible COVID, Influenza, and RSV testing. EXAMINER documented in this encounter Plan of Treatment Not on filedocumented as of this encounter Procedures Procedure Name Priority Date/Time Associated Diagnosis Comme nts INFLUENZA A/B AND Routine 03/24/2020 11:27 AM Contact With And Results for this RSV, PCR, VARIES FLAT EXAMINER (Suspected) Exposure pro cedure are in To COVID-19 the results Infection Upper section. Respiratory SARS CORONAVIRUS-2 Routine 03/24/2020 11:27 AM Contact With An d Results for this RNA, V FLAT EXAMINER (Suspected) Exposure procedu re are in To COVID-19 the results section. documented in this encounter Results Influenza A/B and RSV, PCR, Varies (03/24/2020 11:27 AM FL[facility]IN[facility] Signature Influenza A/B Swab, 03/26/2020 DTL and RSV, Nasopharynx 3:04 PM FLAT EXAMINER Source Influenza A, Undetected Undetected 03/26/2020 DTL PCR 3:04 PM FLAT EXAMINER Comment: Influenza A RNA absent. Influenza B, PCR Undetected Undetected 03/26/2020 3:04 PM CS T DTL Comment: Influenza B RNA absent. Respiratory Syncytial Virus, PCR Undetected Undetected 3:04 PM FLAT EXAMINER DTL Comment: RSV RNA absent. ----ADDITIONAL INFORMATION---- This test has been modified from the man ufacturer's instructions. Its performance characteristics were determi luigi by [facility] in a manner consistent with CLIA requirements. This test has not been cleared or approved by the U.S. Food and Drug Administration . Specimen Anatomical Collection Method Collection Time Receive d Time (Source) Location / / Volume Laterality Varies 03/24/2020 11:27 03/26/2020 7:29 (Nasopharynx) AM FLAT EXAMINER AM FLAT EXAMINER Danielle Rodrigez APRN C.N.P. LAB MICROBIOLOGY - GENERAL ORDERABLES Performing Organization Address City/State/ZIP Code Phon e Number [facility] - [address] [place], [place] [address] [facility] [place] [place] [address] [facility] [address] SARS Coronavirus-2 RNA, V Symptomatic (03/24/2020 11:27 AM FLAT EXAMINER) [facility] [employer] Method Time Signature SARS-CoV-2 Swab, 03/24/2020 MKTO Specimen Nasopharynx 11:06 PM Source FLAT EXAMINER SARS CoV-2 Undetected Undetected 03/24/2020 KALYN RNA, STEPHANIE 11:06 PM FLAT EXAMINER Comment: SARS-CoV-2 RNA absent. This result does not rule out COVID-19 in the patient, as the sensitivity of the test depends o n the timing of the specimen collection and the quality of the specim en. Result should be correlated with patient's history and clinical presentat ion. ----ADDITIONAL INFORMATION---- This molecular amplification test was pe rformed using the Aptima SARS-CoV-2 assay ([employer] on the [employer] tem under emergency use authorization (EUA) by the U.S. Food and Drug Administ ration. Fact sheets for this EUA assay can be fo und at the following links: For Healthcare Providers: https://www.Aktivito a.gov/media/911045/download For Patients: https://www.fda.gov/media/ 160877/download Specimen Anatomical Collection Method Collection Time Receive d Time (Source) Location / / Volume Laterality Varies 03/24/2020 11:27 03/24/2020 5:30 (Nasopharynx) AM FLAT EXAMINER PM FLAT EXAMINER Danielle Rodrigez APRN, C.N.P. LAB MICROBIOLOGY - GENERAL ORDERABLES Performing Organization Address City/State/ZIP Code Phon e Number [facility]- [address] [place] [address] [place] [address] [address] documented in this encounter Visit Diagnoses Diagnosis Contact With And (Suspected) Exposure To COVID-19 Infection Upper Respiratory documented in this encounter Additional Health Concerns Infection Onset Date Last Indicated Resolved Time COVID19 Pending 03/24/2020 03/24/2020 03/24/2020 11:07 PM FLAT EXAMINER Assessment Noted Time PHQ-9 Depression Total Score: 2 07/15/2014 11:54 AM CD T documented as of this encounter
--- OUTSIDE RECORDS SUMMARY | 2021-12-03 11:08 | XMS_ITS | Encounter Summary ---
:1955 Author Organization [facility] Address [address] [place] [address] Care Team Providers Name Role Phone Unavailable Primary Care Provider Unavailable Encounter Details Date Type Department Care Team Description 10/14/2015 Hospital Encounter HX [facility] IALUC[facility] Rina Ruffin P.A.-C., ROBERTO Social History Tobacco Use Types Packs/Day Years Used Date Smoking Tobacco: Never Assessed Sex Assigned at Date Recorded Not on file documented as of this encounter Last Filed Vital Signs Vital Sign Reading Time Taken Comments Blood Pressure 128/64 10/14/2015 5:59 PM CDT Pulse 68 10/14/2015 5:59 PM CDT Temperature - - Respiratory Rate - - Oxygen Saturation - - Inhaled Oxygen Concentration - - Weight - - Height 176 cm (5' 9.29) 10/14/2015 5:59 PM CDT Body Mass Index - - [...] documented as of this encounter Progress Notes Val Centeno P.A.-C. - 10/14/2015 5:52 PM CDT [id number] CHIEF COMPLAINT/REASON FOR VISIT Patient was seen here 3 days ago and now returns complaining of worsening cough. Please see the medication and allergy tabs in [employer] and they are updated today. HISTORY OF PRESENT ILLNESS Patient now has 7 days worth of congestion and cough. She was seen 3 days ago at that time complaining of a sore throat, cough and head congestion. The patient was at that time, put on Tessalon Perles and Robitussin AC. Now today she indicates that her cough is getting worse and there is some intermittent crusting of her eyes and she has left ear pain. She is a never smoker. SYSTEMS REVIEW CONSTITUTIONAL: Negative for outright fever. There has been some fatigue. ENT: Ear on the left sideis pounding and painful. There is head congestion and some discomfort under her eyes. She has had a sore throat with postnasal drainage. RESPIRATORY: There is a harsh congested cough. She indicates that it is now productive of green material. SKIN: No rashes. GI: No stomach upset. PAST MEDICAL/SURGICAL HISTORY Past medical history: Please refer to the ambulatory summary in the electronic medical record as king have a complicated medical history. PHYSICAL EXAMINATION PSYCH: Alert and oriented. She does look tired. ENT: Ears: TMs pearly tracy. They are both bulging from clear fluid. Nose: Some purulent nasal drainage. Maxillary sinus tenderness on palpation bilaterally. Throat: There is follicular cobblestoning inthe posterior pharynx. No lymphadenopathy. LUNGS: Clear to auscultation. Oxygen saturation 95% on room air. HEART: Regular rate and rhythm. NECK: Supple. SKIN: [place], warm and dry. IMPRESSION/REPORT/PLAN ASSESSMENT: 1. Sinusitis. 2. Bronchitis. PLAN: Rest, fluids. I gave her a prescription for the amoxicillin 875 mg 1 by mouth twice a day for 10 days and the Cheratussin with codeine 5 mg per 5 mL by mouth every 4-6 hours as needed for cough. She is warned of drowsiness. She is to follow up if symptoms are not improving over the next few daysor if any additional concerns arise at a higher level of care for further evaluation and treatment. She is in agreement with this plan. Brian Howell./pos Electronically Signed By: VAL CENTENO PA-C On: 10/16/2015 02:06 PM Source: [facility] [email or web address] Document Id: [id number] documented in this encounter Miscellaneous Notes Miscellaneous - Val Centeno P.A.-C. - 10/14/2015 6:29 PM CDT Ambulatory Patient Summary Express Care - [address] [phone] Visit Information Name: RADHA LUDA RAMOS [facility] Number: [id number] Current Date: 10/14/2015 18:29:30 Physicians Attending Provider: VAL CENTENO PA-C Primary Care Provider: CELI LUNA MD RADHALUDA has been given the following list of [...] Take Indications/Special Instructions/Comments/Notes for Patient Medication Changes/Routing amoxicillin (amoxicillin 875 mg oral tablet) 1 Tablet(s), Oral, two times a day x 10 day(s) New Routed to Printer aspirin (Aspir 81) 81 mg, Oral, once a day benzonatate (Tessalon Perles 100 mg oral capsule) 1 cap, Oral, three times a day x 7 day(s) cholecalciferol (Vitamin D3 2000 intl units oral tablet) 1 Tablet(s), Oral, once a day codeine-guaiFENesin (Cheratussin AC 10 mg-100 mg/5 mL oral syrup) 5 Milliliter, Oral, every 6 hours as needed for cough and congestion x 5 day(s) Routed to Printer codeine-guaiFENesin (Robitussin-AC 10 mg-100 mg/5 mL oral syrup) 5 Milliliter, Oral, every 6 hours as needed for cough and congestion conjugated estrogens-medroxyPROGESTERone (Prempro 0.45 mg-1.5 mg oral tablet) 1 Tablet(s), Oral, once a day diphenhydrAMINE (Benadryl) See Instructions ii po daily at HS for sleeping emollients, topical (Tetrix Cream topical kit) See Instructions apply to skin of hands Daily folic acid (folic acid 1 mg oral tablet) 1 Tablet(s), Oral, once a day methotrexate (methotrexate 2.5 mg oral tablet) See Instructions Take 3 tablets po weekly for 2 weeksincrease to 4 tablets once per week, increase by 1 tablet every 2 weeks until up to 6 tablets once aweek multivitamin (Super B Complex) 1 Tablet(s), Oral, once a day multivitamin with minerals (Calcium, Magnesium and Zinc oral tablet) 1 Tablet(s), Oral, once a day predniSONE (predniSONE 5 mg oral tablet) 1 Tablet(s), Oral, once a day Takes along with 1mg tablet daily predniSONE (predniSONE 1 mg oral tablet) 1 Tablet(s), Oral, once a day Takes along with a 5mg tabletdaily primidone (primidone 50 mg oral tablet) 1 [...] for total dose 225 mg per day venlafaxine (Effexor XR 150 mg oral capsule, extended release) 1 cap, Oral, once a day Stop Taking the Following Medications: Medication list as of 10-14-15 18:29 Attention: If you have any medications at home that are not on this list, DO NOT take them until youcontact your provider for clarification. Give a copy of your medication list to your primary care provider. Update your medication list any time medications or doses are changed and carry your medication list at all times in case of emergency. Electronically Signed By: Signed On: Your Allergies & Intolerances Substance Reaction Symptoms [...] if you dont have one. Go to [email or web address] and click on Create Your Account. Then, follow the directions to complete the online form. Youll be asked for your [facility] number which you can find at the top of this document. Your Goals/Additional instructions: Source: [facility] POWERCHART Document Id: [id number] Miscellaneous - Val Centeno P.A.-C. - 10/14/2015 6:29 PM CDT Ambulatory Discharge Medication List Express Care - [address] [phone] Visit Information Name: LUDA GARCIA [facility] Number: [id number] Visit Date: 10/14/2015 18:29:27 Attending Provider: VAL CENTENO PA-C Primary Care Provider: CELI LUNA MD LUDA GARCIA has been given the following list of medications: Your Medications It is important to take your medications as directed. Use a pill box or chart to help remind you to take your medications. Please let your doctor or nurse know if you have problems taking your medications. Medication/Strength How to Take Indications/Special Instructions/Comments/Notes for Patient Medication Changes/Routing amoxicillin (amoxicillin 875 mg oral tablet) 1 Tablet(s), Oral, two times a day x 10 day(s) New Routed to Printer aspirin (Aspir 81) 81 mg, Oral, once a day benzonatate (Tessalon Perles 100 mg oral capsule) 1 cap, Oral, three times a day x 7 day(s) cholecalciferol (Vitamin D3 2000 intl units oral tablet) 1 Tablet(s), Oral, once a day codeine-guaiFENesin (Cheratussin AC 10 mg-100 mg/5 mL oral syrup) 5 Milliliter, Oral, every 6 hours as needed for cough and congestion x 5 day(s) Routed to Printer codeine-guaiFENesin (Robitussin-AC 10 mg-100 mg/5 mL oral syrup) 5 Milliliter, Oral, every 6 hours as needed for cough and congestion conjugated estrogens-medroxyPROGESTERone (Prempro 0.45 mg-1.5 mg oral tablet) 1 Tablet(s), Oral, once a day diphenhydrAMINE (Benadryl) See Instructions ii po daily at HS for sleeping emollients, topical (Tetrix Cream topical kit) See Instructions apply to skin of hands Daily folic acid (folic acid 1 mg oral tablet) 1 Tablet(s), Oral, once a day methotrexate (methotrexate 2.5 mg oral tablet) See Instructions Take 3 tablets po weekly for 2 weeksincrease to 4 tablets once per week, increase by 1 tablet every 2 weeks until up to 6 tablets once aweek multivitamin (Super B Complex) 1 Tablet(s), Oral, once a day multivitamin with minerals (Calcium, Magnesium and Zinc oral tablet) 1 Tablet(s), Oral, once a day predniSONE (predniSONE 5 mg oral tablet) 1 Tablet(s), Oral, once a day Takes along with 1mg tablet daily predniSONE (predniSONE 1 mg oral tablet) 1 Tablet(s), Oral, once a day Takes along with a 5mg tabletdaily primidone (primidone 50 mg oral tablet) 1 [...] for total dose 225 mg per day venlafaxine (Effexor XR 150 mg oral capsule, extended release) 1 cap, Oral, once a day Stop Taking the Following Medications: Medication list as of 10-14-15 18:29 Attention: If you have any medications at home that are not on this list, DO NOT take them until youcontact your provider for clarification. Give a copy of your medication list to your primary care provider. Update your medication list any time medications or doses are changed and carry your medication list at all times in case of emergency. Electronically Signed By: Signed On: Additional Information: Source: [facility] POWERCHART Document Id: [id number] Miscellaneous - Evangelina Richmond CAaronMAaronAAaron - 10/14/2015 5:59 PM CDT Adult Kinesiology Professor Intake/History Document Has Been Updated Adult Kinesiology Professor Intake/History Entered On: 10/14/2015 18:05 CDT Performed On: 10/14/2015 17:59 CDT by EVANGELINA RICHMOND Intake Chief Complaint : cough with green phlegm, left eye crusted shut, right eye a little cursting, neither are sore or itch; left ear is pounding and hurts, feels feverish Onset of Symptoms : 7 days ago Ambulatory Intake Additional Information : was here Tuesday and everything has got worse since then -- was given Robitussin with codeine and it only helped a little and is gone now; no OTC meds today except for last of Robitussin Temperature Core : 35.8 DegC(Converted to: 96.4 DegF) (LOW) Peripheral Pulse Rate : 68 /min Systolic Blood Pressure : 128 mmHg EVANGELINA RICHMOND - 10/14/2015 17:59 CDT Diastolic Blood Pressure : 64 mmHg NIBP Mean : 85 mmHg EVANGELINA RICHMOND - 10/14/2015 18:07 CDT BP Location : Left upper extremity Blood Pressure Cuff Size : Regular SpO2 : 95 % Oxygen Therapy : Room air Height : 176 cm(Converted to: 5 ft 9 inch(es), 69 inch(es)) EVANGELINA RICHMOND - 10/14/2015 17:59 CDT General Info Information Given By : Patient Preferred Communication Mode : Verbal Languages : Lao Is Patient Female and 13-50 no hysterectomy : No EVANGELINA RICHMOND - 10/14/2015 17:59 CDT Subjective Pain Symptoms : Yes EVANGELINA RICHMOND - 10/14/2015 17:59 CDT Pain Scale Pain Scale Verbal 0-10 : Open EVANGELINA RICHMOND - 10/14/2015 17:59 CDT Pain Pain Assessment Grid Pain 1 Location : Ear Laterality : Left EVANGELINA RICHMOND - 10/14/2015 17:59 CDT Dependent Habits Exposure to Tobacco Smoke : Other: never Smoking Status : Never smoker Tobacco 2A : No Tobacco Use/Currently Using : No Tobacco Use/Last 30 Days : No Tobacco Use/Last 12 months : No EVANGELINA RICHMOND - 10/14/2015 17:59 CDT Caffeine Use Grid Caffeine Use : Current Type : Coffee Frequency : Daily Amount : couple cups daily EVANGELINA RICHMOND - 10/14/2015 17:59 CDT Recreational Drug Use Grid Drug Use : None EVANGELINA RICHMOND 10/14/2015 17:59 CDT Source: [employer] Document Id: [id number]!4 documented in this encounter Plan of Treatment Not on filedocumented as of this encounter Visit Diagnoses Not on filedocumented in this encounter Additional Health Concerns Assessment Noted Time PHQ-9 Depression Total Score: 2 07/15/2014 11:54 AM CD T documented as of this encounter
--- OUTSIDE RECORDS SUMMARY | 2021-12-03 11:08 | XMS_ITS | Encounter Summary ---
:1955 Author Organization [facility] Address [address] [place] [address] Care Team Providers Name Role Phone Unavailable Primary Care Provider Unavailable Encounter Details Date Type Department Care Team Description 01/30/2021 Admin Visit Urgent Care, [facility], in [place], [place] [address] [place], [place] [id number] Social History Tobacco Use Types Packs/Day Years Used Date Smoking Tobacco: Never Sex Assigned at Date Recorded Not on file documented as of this encounter Plan of Treatment Not on filedocumented as of this encounter Visit Diagnoses Not on filedocumented in this encounter Additional Health Concerns Infection Onset Date Last Indicated Resolved Time COVID19 Pending 01/30/2021 01/30/2021 01/30/2021 11:38 PM PINMAKER Assessment Noted Time PHQ-9 Depression Total Score: 2 07/15/2014 11:54 AM CD T documented as of this encounter
--- OUTSIDE RECORDS SUMMARY | 2021-12-03 11:08 | XMS_ITS | Encounter Summary ---
:1955 Author Organization [facility] Address [address] [place] [address] Care Team Providers Name Role Phone Unavailable Primary Care Provider Unavailable Reason for Visit Reason Comments COVID Nurse Line Encounter Details Date Type Department Care Team Description 01/26/2020 Clinical Communication Division of [facility] Nurse Line [facility] Claire Fink, [facility] [address] [place] [address] in [facility] [phone] [place] [phone] [address] [facility] (Work) [place] [id number] Social History Tobacco Use Types Packs/Day Years Used Date Smoking Tobacco: Never Sex Assigned at Date Recorded Not on file documented as of this encounter Miscellaneous Notes Telephone Encounter - Clover Oliveros RTrino - 01/26/2020 7:49 AM CST COVID-19 Nurse Line Screening ASSESSMENT COVID 19 Screening Have you had close contact with a person who has a LABORATORY CONFIRMED case of COVID-19 in the past14 days?: Yes - Continue screening. Over the last 48 hours have you had any of the following symptoms that are not related to a exsitingcondition?: No symptoms- (Continue Screening) Have you tested positive for COVID-19 in the last 45 days? : No (Continue Screening) Do any of the following quarantine criteria apply?: Close contact with COVID positive person within their infectious period or within 48 hours prior to symptoms onset PLAN Endpoint recommendation: Screening negative, testing not indicated at this time and Provided instruction to quarantine for 14 days from the last contact exposure to a confirmed COVID-19 case and testing is recommended. The best time to test is 5-7 days after last contact with an infected individual inorder to have the best chance of detecting infection. If you are unsure of your last contact, or would like testing now, we can perform testing now. Even if your test is negative, you should continue to follow official public health quarantine recommendations. Contact your primary care team with any new symptoms. Care Points provided: STANDARD PRECAUTIONS FOR ALL PATIENTS: Wash hands often with soap and water for at least 20 seconds, especially after blowing your nose, coughing, sneezing, or having been in a public place. If soap and water aren't available, use a hand violin restorer that contains at least 60% alcohol. Avoid close contact with anyone who may be exhibiting respiratory symptoms such as coughing and sneezing. Avoid touching your eyes, nose and mouth. Clean and disinfect frequently touched surfaces daily. Cover your mouth and nose with a cloth face cover when around others or in public. The cloth face cover is not a substitute for social distancing. Continue to keep about 6 feet between yourself andothers. Monitor for symptoms. Do not take your temperature within 30 minutes of exercise. If your test or screen is negative and new symptoms develop please contact your provider if it has been greaterthan 72 hours since you were tested. Educational Resource: https://www.cdc.gov/coronavirus/2019-ncov/ rkepdha-xmkdtaz-rfyw/index.html RECOMMENDATIONS TESTING CRITERIA IS MET: Stay home except to get medical care. Quarantine for 14 days if exposed to someone with a laboratory confirmed case of COVID-19 exposure regardless of your test results. Avoid public areas and public transportation. Separate yourself from other people and stay in a specific sick room if possible. Wear a cloth face covering, over your nose and mouth if youmust be around other people even at home). Cover your nose and mouth when coughing or sneezing. Contact employer/occupational health department to notify them that they are being tested. Seek emergent care if any of the following occur: 1) Trouble breathing, 2) Bluish lips or face, 3) Persistent pain or pressure in the chest, 4) Newly confused or unable to stay alert and awake. Notify appropriate care provider if any new or worsening symptoms. You may need re-testing if it has been greater than 72 hours after a negative COVID- 19 test result. Education Resources: https://www.cdc.gov/coronavirus/2019- ncov/xd-iar-lbm-sick/eozfi-lqmo-mcbp.html Education: Patient/caregiver able to teach back Patient agreeable to plan of care: Yes The following references were used: [facility] novel coronavirus (COVID- 19) resources Nursing judgement IVING DOCK CHECKER documented in this encounter Plan of Treatment Not on filedocumented as of this encounter Visit Diagnoses Not on filedocumented in this encounter Additional Health Concerns Infection Onset Date Last Indicated Resolved Time COVID19 Pending 01/26/2020 01/26/2020 01/27/2020 6:42 PM RECEIVING DOCK CHECKER Assessment Noted Time PHQ-9 Depression Total Score: 2 07/15/2014 11:54 AM CD T documented as of this encounter
--- OUTSIDE RECORDS SUMMARY | 2021-12-03 11:08 | XMS_ITS | Encounter Summary ---
:1955 Author Organization [facility] Address [address] [place] [address] Care Team Providers Name Role Phone Unavailable Primary Care Provider Unavailable Reason for Visit Reason Comments COVID Inquiry Encounter Details Date Type Department Care Team Description 01/05/2021 Clinical Communication Central Appointment [facility] Office in [facility] [address] [place], [place] [id number] Social History Tobacco Use Types Packs/Day Years Used Date Smoking Tobacco: Never Sex Assigned at Date Recorded Not on file documented as of this encounter Miscellaneous Notes Telephone Encounter - Cammy Huerta - 01/05/2021 9:15 AM CDT What is the purpose of the call?: Requesting Testing Only Request Testing In the past 14 days are any of the following symptoms new to you and not related to an existing health condition?: No symptoms noted In the past 14 days have you had close contact* with a person who has a LABORATORY CONFIRMED case ofCOVID-19?: No exposure noted (Continue Screening) Have you tested positive for COVID-19 in the last 90 days?: No (Continue Screening) Why is the patient requesting testing?: Required to travel Select appropriate regional recommendations: : [place]- COVID only testing recommended (End Screening) Plan: Endpoint recommendation: Testing indicated, advised to be swabbed for COVID-19 Only , sent to [facility]: An appointment is needed for testing. Call [phone] during the hours of Mon-Fri 8 am - 4 pm or Sat/Sun 9 am - 2 pm to schedule an appointment time. Scheduling staff will provide instructions on location and check in for your appointment. , Please avoid using public transportation perCDC recommendation. If you do not have personal transportation please self-quarantine until a personal transportation option is available. *Reminder if sending patient for testing in [facility] or [facility], route encounter to the correct testing pool. documented in this encounter Plan of Treatment Not on filedocumented as of this encounter Visit Diagnoses Not on filedocumented in this encounter Additional Health Concerns Assessment Noted Time PHQ-9 Depression Total Score: 2 07/15/2014 11:54 AM CD T documented as of this encounter
--- OUTSIDE RECORDS SUMMARY | 2021-12-03 11:08 | XMS_ITS | Encounter Summary ---
:1955 Author Organization [facility] Address [address] [place] [address] Care Team Providers Name Role Phone Unavailable Primary Care Provider Unavailable Reason for Visit Reason Onset Date Comments Outpatient COVID-19 Testing 04/21/2020 Encounter Details Date Type Department Care Team Description 04/21/2020 External Outreach Department of Darlene Ham Contact With And Medicine in Jaimie Poon APRN, C.NAaronP Aaron (Suspected) [place], [place] [address] [facility] To COVID-19 (Primary [address] [place], [place] Dx) [place] [phone] Social History Tobacco Use Types Packs/Day Years Used Date Smoking Tobacco: Never Sex Assigned at Date Recorded Not on file documented as of this encounter Progress Notes Lia Contreras R.N. - 04/21/2020 8:20 AM CST Encounter created for COVID-19 screening. F LOAD MECHANIC documented in this encounter Plan of Treatment Not on filedocumented as of this encounter Procedures Procedure Name Priority Date/Time Associated Diagnosis Comme nts SARS CORONAVIRUS-2, Routine 04/21/2020 12:32 PM R esults for this PCR PROOF LOAD MECHANIC procedure are i n the results section. documented in this encounter Results SARS Coronavirus-2, PCR (04/21/2020 12:32 PM PROOF LOAD MECHANIC) Patholo gist Method Time Signature SARS Nasopharynx 04/22/2020 [facility] Coronavirus-2 3:11 PM PROOF LOAD MECHANIC Source SARS Undetected Undetected 04/22/2020 [facility] Coronavirus-2 3:11 PM PROOF LOAD MECHANIC , PCR Comment: SARS-CoV-2 RNA absent. This result does not rule out COVID-19 in the patient, as the sensitivity of the test depends o n the timing of the specimen collection and quality of the specimen. Result should be correlated with patient's history and clinical presentat ion. ----ADDITIONAL INFORMATION---- This test was developed and its performa nce characteristics determined by [facility] in a manner co nsistent with CLIA requirements. Independent review by the U.S. Food and Drug Administration is pending. Visit the CDC website: https://www.cdc.gov/coronavirus/ ?? for the most recent guidelines on [place] virus testing. Fact Sheet for Healthcare Providers: (https://www.[employer]/it-TouchLocalil es/ Provider_Fact_Sheet_for_[place]_COVI D-19.pdf) Fact Sheet for Patients: (https://www.[employer]/it-mmfil es/ Patient_Fact_Sheet_for_COVID-19.pdf) Specimen Anatomical Collection Method Collection Time Receive d Time (Source) Location / / Volume Laterality Varies 04/21/2020 12:32 04/21/2020 PM PROOF LOAD MECHANIC 10:09 PM PROOF LOAD MECHANIC Eitan Blankenship APRNPAaron LAB MICROBIOLOGY - GENE RAL ORDERABLES Performing Organization Address City/State/ZIP Code Phon e Number [facility] - [address] [place], [place] [address] [facility] [place] [place] [address] [facility] [address] documented in this encounter Visit Diagnoses Diagnosis Contact With And (Suspected) Exposure To COVID-19 - Primary documented in this encounter Additional Health Concerns Infection Onset Date Last Indicated Resolved Time COVID19 Pending 04/21/2020 04/21/2020 04/21/2020 2:23 PM PROOF LOAD MECHANIC Assessment Noted Time PHQ-9 Depression Total Score: 2 07/15/2014 11:54 AM CD T documented as of this encounter
--- OUTSIDE RECORDS SUMMARY | 2021-12-03 11:08 | XMS_ITS | Encounter Summary ---
:1955 Author Organization [facility] Address [address] [place] [address] Care Team Providers Name Role Phone Unavailable Primary Care Provider Unavailable Reason for Visit Reason Comments COVID Inquiry Encounter Details Date Type Department Care Team Description 03/23/2020 Clinical Communication Department of Marcela Sauer COVID Inquiry Orthopedic Surgery in [place], [place] [address] [place] [address] Social History Tobacco Use Types Packs/Day Years Used Date Smoking Tobacco: Never Sex Assigned at Date Recorded Not on file documented as of this encounter Miscellaneous Notes Telephone Encounter - Juan Sanchez Alejandra - 03/23/2020 4:02 PM CST COVID-19 Nurse Line Screening ASSESSMENT PLAN Endpoint recommendation: Screening positive, testing indicated, advised to be swabbed for COVID-19 Only , sent to [facility] located at [address] [facility] When you arrive in the parking lot, using your camera smartphone scan the QR code on the sign and fill out the online form. If you do not have a smartphone or working camera, please ring the doorbell outside the building for service. Testing hours are M-F 9 am to 4 pm and Sat-Sun 9 am to 12:30 pm. and Please avoid using public transportation per CDC recommendation. If you do not have personal transportation please self-quarantine until a personal transportation option is available. Care Points: -Wash hands frequently with soap and water for at least 20 seconds -If soap and water are not available, use a hand residential real estate assistant -Avoid touching your eyes, nose and mouth. [...] provider of any new or worsening symptoms. Symptomatic Carepoints: Separate yourself from others and stay in a specific sick room if able. Avoid sharing personal or household items. Rest. Hydrate. Take Acetaminophen/Ibuprofen as needed to control fever and muscles aches. Use over the counter medications as needed for other symptoms. Education: Not applicable Patient agreeable to plan of care: Yes The following references were used: [facility] novel coronavirus (COVID- 19) resources CONTROLLER documented in this encounter Plan of Treatment Not on filedocumented as of this encounter Visit Diagnoses Not on filedocumented in this encounter Additional Health Concerns Assessment Noted Time PHQ-9 Depression Total Score: 2 07/15/2014 11:54 AM CD T documented as of this encounter
--- OUTSIDE RECORDS SUMMARY | 2021-12-03 11:08 | XMS_ITS | Encounter Summary ---
:1955 Author Organization [facility] Address [address] [place] [address] Care Team Providers Name Role Phone Unavailable Primary Care Provider Unavailable Encounter Details Date Type Department Care Team Description 07/07/2020 Clinical Communication Department of Family [facility], [facility] Medicine in [address] [phone] Social History Tobacco Use Types Packs/Day Years Used Date Smoking Tobacco: Never Sex Assigned at Date Recorded Not on file documented as of this encounter Miscellaneous Notes Telephone Encounter - Cammy Tyson R.N. - 07/07/2020 11:27 AM CDT Patient states she needs a note or physicians statement for her disability claim post covid positiveon 05/14/20. Advised we do not provide letters (unless she is seen for evaluation) we only provide herpositive results which are found on her portal. She said she has sent them this information already.She was advised to have a visit with her PCP if she needs further assistance for her disability. Telephone Encounter - Rabia Florinda Del - 07/07/2020 10:37 AM CDT Please do not reply to sender,emails are not monitored. Thank you. If you need a prescription refill please call your pharmacy. Please allow 3 business days for processing. Expert RN: N/A (Med Refill Only) Call Center Template: ??? May we leave a message for you on this phone? yes What can I help you with today? Patient was disgnosed with covid in may and is wondering if she could get a letter stating that. ??? If Medication Refill: o What is the name and strength of the medication? o What do you use the medication for? o How many pills do you have left? o What pharmacy do you use (include location)? I will send this information to the appropriate staff member who will look into your concern. Is there anything else I can help you with today? Thank you for calling [facility]. documented in this encounter Plan of Treatment Not on filedocumented as of this encounter Visit Diagnoses Not on filedocumented in this encounter Additional Health Concerns Assessment Noted Time PHQ-9 Depression Total Score: 2 07/15/2014 11:54 AM CD T documented as of this encounter
--- OUTSIDE RECORDS SUMMARY | 2021-12-03 11:08 | XMS_ITS | Encounter Summary ---
:1955 Author Organization [facility] Address [address] [place] [id number] Care Team Providers Name Role Phone Unavailable Primary Care Provider Unavailable Encounter Details Date Type Department Care Team Description 05/15/2020 Virtual Visit Division of [facility] Rox Elaine, COV ID-19 Infection Internal MedicineMagali (Primary Dx) [facility], in [address] [place] [address] [place] [phone] [place], [place] [phone] (Work) [phone] Social History Tobacco Use Types Packs/Day Years Used Date Smoking Tobacco: Never Sex Assigned at Date Recorded Not on file documented as of this encounter Progress Notes Rox Elaine M.D. - 05/15/2020 9:25 AM CST Images from the original note were not included. TELEPHONE COMMUNICATION NOTE This was a telephone notification to Ms. Bonilla to notify them that their PCR test for SARS-CoV-2 (the virus that causes COVID-19) has returned positive. The patient was interviewed, but not personally examined. Masticator: no Currently Ms. Bonilla has the following symptoms:none Patient never had symptoms Ms. Bonilla has the following risk factors for severe infection: Diabetes Risk Factors for Severe Infection w/ COVID-19 Current as of 5 minutes ago 3 0 - 2 Points: Low Risk 3 - 5 Points: Medium Risk >= 6 Points: High Risk The previous score was 2 on 01/26/2020.: Last Change: Details Returns the total points for all positive risk factors for severe infection with COVID-19 Points Metrics 1 Age: 64 Current as of 5 minutes ago 0 Sex: Female Current as of 5 minutes ago 1 Has Hypertension: Yes Current as of 5 minutes ago 0 Has Congestive Heart Failure: No Current as of 5 minutes ago 0 Has Congenital Heart Disease: No Current as of 5 minutes ago 0 Has Coronary Artery Disease: No Current as of 5 minutes ago 0 Has Chronic Lung Disease or Asthma: No Current as of 5 minutes ago 0 Has Diabetes: No Current as of 5 minutes ago 1 Patient is Immune Compromised: Yes Current as of 5 minutes ago 0 Care Home Patient: No Current as of 5 minutes ago 0 COVID-19 Component - End State Renal Disease: 0 Current as of 5 minutes ago 0 Chronic Liver Disease Registry: No Current as of 5 minutes ago 0 : No Current as of 5 minutes ago Ms. Bonilla has been in the following facilities in the last 14 days: Facility(s) name: Additional household members: 4;None are sick PROBLEM LIST Patient Active Problem List Diagnosis ??? Hypertension Chronic ??? Polymyalgia Rheumatica (HCC) ??? COVID-19 Infection RESULTS Microbiology Results (last 10 days) Procedure Component Value - Date/Time SARS Coronavirus-2 RNA, V Asymptomatic [[id number]] (Abnormal) Collected: 05/14/20958 Lab Status: Final result Specimen: Varies from Nasopharynx Updated: 05/14/202234 SARS-CoV-2 Specimen Source Swab, Nasopharynx SARS CoV-2 RNA, TMA Detected Comment: SARS-CoV-2 RNA present. ----ADDITIONAL INFORMATION---- This molecular amplification test was performed using the Aptima SARS-CoV-2 assay ([employer] on the GestureTek System under emergency use authorization (EUA) by the U.S. Food and Drug Administration. Fact sheets for this EUA assay can be found at the following links: For Healthcare Providers: https://www.fda.gov/media/833204/download For Patients: https://www.fda.gov/media/471925/download ASSESSMENT/PLAN #1 COVID-19 disease Duration of Isolation Beginning of isolation (day 0) is: 05/14/2020 The patient should self- isolate at home for at least 10 days from day zero. The patient may end home isolation when they meet the following criteria: ??? It has been at least 10 days from symptom onset ??? They have been afebrile at least 24 hours without the use of fever reducing medications ??? Their symptoms are improving Symptom Assessment Ms. Bonilla currently has no symptoms Risk Assessment & Follow Up Recommendations Ms. Bonilla is at low risk for severe complications of COVID-19, and should follow up as needed with their primary care provider. While severe complications of Covid-19 can develop at any time, they can manifest suddenly between days 7 to 14 from symptom onset. Severe complications of COVID-19 can include viral pneumonia, Acute Respiratory Distress Syndrome, pulmonary embolism, myocardial infarction, myocarditis, acute kidney injury and concomitant viral and bacterial infections. Features of severe disease include ? ? Respiratory frequency > 30 breaths per minute ? ? SpO2 < 94% on room air with signs of lower respiratory tract infection (for patients with chronic hypoxemia, a decrease from baseline of >3%) ? ? Ratio of arterial partial pressure of oxygen to fraction of inspired oxygen (PaO2/FiO2) <300 mm Hg ??? Lung infiltrates covering over 50% of the lungs Symptoms of severe COVID-19 warrants evaluation in the Emergency Department and may include chest pain, fast heart rate, trouble breathing, hemoptysis, pain with breathing, and severe lightheadedness that interferes with activity. These symptoms raise concerns for complications of COVID-19 such as myocardial infarction, myocarditis, pulmonary embolism, pneumonia, acute respiratory distress syndrome and severe dehydration. Symptoms of moderate COVID-19 warrant evaluation in clinic for symptom management and for assessmentfor features of severe disease. Symptoms may include moderate shortness of breath, difficult to control cough, vomiting and diarrhea, weakness and severe fatigue. Symptoms of mild COVID-19 that can be managed at home include fever, chills, cough, fatigue, myalgias, sore throat, runny nose, headache, mild shortness of breath and mild chest pain. Vaccination Guidance If they already received the first of a two shot vaccine series, they may obtain the second dose once they end home isolation. Upcoming Appointments If any clinic appointments are [...] home isolation prior to the 20 days, they may resolve the COVID infection flag, at which time the patient may return to [facility] for on site appointments. [email or web address]/[email or web address]-answers/prt-18610758/[email or web address] 35044 Quarantine of household members/close contacts [facility] continues to recommend 14 days quarantine for close contacts. Individuals who have been told by public health officials that they are eligible for a shorter quarantine of 7-10 days may choose to follow Public Health recommendations. If a close contact has been fully vaccinated, defer to public health recommendations for quarantine. Return to Work or School We have provided a general work/school excuse letter that the patient may share with a school or employer as documentation of the positive test result and initial isolation recommendations. The patientwill follow up with their primary care provider for evaluation and return to work assessment if theycontinue to have symptoms that interfere with work or school or if they do not meet criteria to end home isolation. Rox Elaine M.D. Ethel COVID Care Team [facility] This was a virtual visit. The patient was not seen face to face because of COVID-19. Total time spent in counselin minutes GNMENT MANAGER documented in this encounter Plan of Treatment [...]
--- OUTSIDE RECORDS SUMMARY | 2021-12-03 11:08 | XMS_ITS | Encounter Summary ---
:1955 Author Organization [facility] Address [address] [place] [address] Care Team Providers Name Role Phone Elsewhere, Pcp Primary Care Provider Unavailable Reason for Visit Reason Comments Headache Patient presents to ED with complaints of headache and vomiting that started last evening. Patient was se en at [facility] and was given prednisone. Patient states she felt wors e today, took 800mg of Ibuprofen about an hour ago but had emesis 15 minute s after taking this. Patient states pain is behind left eye. Encounter Details Date Type Department Care Team Description 11/21/2021 - Emergency [place] [facility] Chandan, Chiquita, Headach e Unspecified 11/22/2021 Department D.O. (Primary Dx) [address] [place] [id number] [phone] Social History Tobacco Use Types Packs/Day Years Used Date Smoking Tobacco: Never Sex Assigned at Date Recorded Not on file documented as of this encounter Last Filed Vital Signs Vital Sign Reading Time Taken Comments Blood Pressure 121/68 11/22/2021 3:00 AM CDT Pulse - - Temperature 36.3 ??C (97.3 ??F) 11/22/2021 12:45 AM CDT Respiratory Rate 12 11/22/2021 3:00 AM CDT Oxygen Saturation 98% 11/22/2021 1:00 AM CDT Inhaled Oxygen Concentration - - Weight 105 kg (232 lb 9.4 oz) 11/21/2021 11:34 PM CDT Height 177.8 cm (5' 10) 11/21/2021 11:34 PM CDT Body Mass Index 33.37 11/21/2021 11:34 PM CDT documented in this encounter Discharge Instructions Discharge InstructionsChiquita Hawley D.O. - 11/22/2021 3:02 AM CDT It is difficult to discern if your pain is related to giant cell arteritis or a return of your remote migraines. There are many overlapping features as well as reassuring findings against giant cell arteritis and concerning findings for giant cell arteritis. Continue the prednisone as prescribed by the [facility] ED. It is important to take medication when your pain starts and is mild, as it is always more difficultto control moderate to severe pain. It is okay to mix the Imitrex, ibuprofen, and Tylenol if multiple medications are needed to control your pain. Take the Zofran every 6 hours if needed for nausea. If you cannot control your pain or nausea at home or symptoms are worsening, return to the ER for re-evaluation. AttachmentsThe following attachments cannot be sent through Care Everywhere. General Headache Without Cause [id number] (Thai)documented in this encounter Medications at Time of Discharge Medication Sig Dispensed Refills Start Date End Date atorvastatin (LIPITOR) 20 Take 20 mg by mouth 0 0 07/04/2021 mg tablet at bedtime. cholecalciferol (VITAMIN Take 1 tablet by 0 06/29 D3) 50 mcg (2,000 Unit) mouth daily. tablet diphenhydrAMINE (BENADRYL) Take 2 capsules by 0 0 03/31/2015 25 mg capsule mouth daily. furosemide (LASIX) 40 mg Take 40 mg by mouth 0 tablet daily. magnesium oxide (MAG-OX) Take 250 mg by mouth 0 250 mg of magnesium tablet daily. metFORMIN (GLUCOPHAGE) Take 1,000 mg by 0 021 1,000 mg tablet mouth daily. multivitamin with minerals Take 1 tablet by 0 capsule mouth daily. predniSONE (DELTASONE) 20 Take 40 mg by mouth 0 0 11/20/2021 mg tablet daily. Patient on a prednisone burst from [facility] propranoloL (INDERAL LA) Take 1 capsule by 0 04/15 120 mg 24 hr capsule mouth daily. venlafaxine HCl Take 75 mg by mouth 0 03/31/2015 (VENLAFAXINE ORAL) daily. zinc gluconate 50 mg Take 50 mg by mouth 0 tablet daily with breakfast. aspirin [address] tablet Take 81 mg by mouth 0 daily. diphenhydrAMINE (BenadryL) Take 50 mg by mouth. 0 25 mg capsule ondansetron ODT Dissolve 1 tablet (4 10 tablet 0 11/22/2021 (ZOFRAN-ODT) 4 mg mg total) in the disintegrating tablet mouth every 6 (six) hours as needed for nausea or vomiting. SUMAtriptan (IMITREX) 50 Take 1 tablet (50 mg 10 tablet 0 0 11/22/2021 mg tablet total) by mouth as needed for migraine. May repeat dose once in 2 hours if migraine is unresolved. Do not exceed 200 mg in 24 hours. documented as of this encounter ED Notes Chiquita Hawley D.O. - 11/22/2021 3:10 AM CDT [facility] EMERGENCY DEPARTMENT ENCOUNTER Patient Name: Gloria Bonilla Birthdate 1955 Date of evaluation: 11/21/2021 Provider: Chiquita Hawley D.O. PCP: SHARIF, PCP SUBJECTIVE CHIEF COMPLAINT/REASON FOR VISIT Headache (Patient presents to ED with complaints of headache and vomiting that started last evening.Patient was seen at [facility] and was given prednisone. Patient states she felt worse today, took 800mg of Ibuprofen about an hour ago but had emesis 15 minutes after taking this. Patient states painis behind left eye. ) HISTORY OF PRESENT ILLNESS Gloria Bonilla is a 66 y.o. female presents to the emergency department for evaluation of left retro-orbital headache associated with nausea and vomiting that started evening. She was in the emergency department at [facility] late night/Tuesday morning. She has a history of giant cell arteritis on the right that presented with similar headaches and vision changes 4 months ago. She had a temporal artery biopsy that was negative, but the sample size was not sufficient. He she was treated with a prolonged course of prednisone and follows with Neurology in [place]. She does have a remote history of migraine headaches, but has not experienced migraines since she was . No vision changes but she does have an increase of pain with looking to the left. No scalp tenderness or pain over the left temporal artery. With her previous ED visit night she had taken ibuprofen 800 mg prior to going to the emergency department. Her headache did significantly improve/resolve while in the waiting room. With her history of giant cell arteritis and ESR and CRP were checked and were normal. The ER physician spoke with the neuro tetryl wringer operator on-call who recommended a 5 day burst of high- dose prednisone. Patient's headache returned this afternoon and became severe, associated with nausea and vomiting just prior to arrival tonight, so she came to the ED for evaluation. REVIEW OF SYSTEMS Constitutional: - Negative for fever. Skin: - Negative for skin rash. Eyes: - Negative for visual problems. ENT: - No ear pain. No jaw pain Respiratory: - Negative for shortness of breath. Cardiovascular: - Negative for chest pain, pressure or tightness. Gastrointestinal: Positive for nausea and vomiting. Hematologic: - Negative for bruises or bleeds easily. Musculoskeletal: - No neck pain Neurological: Positive for headaches. MEDICAL HISTORY Patient Active Problem List Diagnosis Hypertension Polymyalgia Rheumatica (HCC) COVID-19 Infection Anxiety Generalized Disorder Arteritis Giant Cell (HCC) Insomnia Neuritis Optic Obesity Unspecified Tremor Essential SOCIAL HISTORY Social History Tobacco Use Smoking status: Never Smokeless tobacco: Not on file Substance Use Topics Alcohol use: Not on file OBJECTIVE VITAL SIGNS BP 121/68 Temp 36.3 ??C Resp 12 Ht 177.8 cm Wt 105 kg SpO2 98% BMI 33.37 kg/m?? PHYSICAL EXAMINATION Vitals and nursing note reviewed. Constitutional Appearance: She is ill-appearing. She is not toxic-appearing. Comments: Appears uncomfortable, in pain. HENT Head: Normocephalic. Comments: No tenderness over the left temporal artery. Mouth/Throat: Mouth: Mucous membranes are moist. Eyes Extraocular Movements: Extraocular movements intact. Conjunctiva/sclera: Conjunctivae normal. Pupils: Pupils are equal, round, and reactive to light. Cardiovascular Rate and Rhythm: Normal rate. Pulmonary Effort: Pulmonary effort is normal. No respiratory distress. Musculoskeletal Cervical back: Normal range of motion and neck supple. No rigidity. Skin General: Skin is warm and dry. Neurological Mental Status: She is alert and oriented to person, place, and time. Psychiatric Mood and Affect: Mood normal. Behavior: Behavior normal. Behavior is cooperative. DIAGNOSTICS LABS: Labs Reviewed C-REACTIVE PROTEIN (CRP), S/P Result Value C-Reactive Protein (CRP), P <3.0 EMERGENCY DEPARTMENT COURSE and DIFFERENTIAL DIAGNOSIS/MDM: Patient was given the following medications: Medications sodium chloride 0.9 % injection 2-10 mL (has no administration in time range) ondansetron ODT disintegrating tablet 4 mg (ZOFRAN-ODT) (4 mg oral Given 11/21/215) NaCl 0.9 % bolus 1,000 mL (0 mL intravenous Stopped 11/22/21117) metoclopramide injection 20 mg (REGLAN) (20 mg intravenous Given 11/22/2147) diphenhydrAMINE injection 25 mg (BENADRYL) (25 mg intravenous Given 11/22/2129) ketorolac injection 15 mg (TORADOL) (15 mg intravenous Given 11/22/2136) dexAMETHasone injection 10 mg (DECADRON) (10 mg intravenous Given 11/22/2139) MDM: Patient presents to the emergency department with a left retro-orbital headache, concerned that her giant cell arteritis has reoccurred, this time on the left. I discussed with patient that she has many features that overlap with migraine headaches, but she has not had migraines in decades. However she does not have features clearly pointing to giant cell arteritis such as tenderness over the congregational or artery or elevated inflammatory markers. Her CRP was normal in the ED 2 nights ago. It was repeated today and is undetectable. I feel this is reassuring. However she has had quite an atypical course,even with her episode on the right side and an inconclusive biopsy. I do think it is prudent to betty nue her prednisone and follow up closely with her neuro tetryl wringer operator, but I did also discussed with patient the possibility that she may be having migraine headaches on the left and it is not related to giant cell arteritis. Regardless of the etiology, pain control is of the utmost importance. She was given a migraine cocktail in the ED with Reglan, Benadryl, Toradol, and Decadron as well as 1 L of IV fluid, with resolution of her headache. We talked about NSAID therapy if pain would recur, and she inquired about Imitrex, as she had taken not with migraines previously. I do feel it is reasonableto prescribe a small amount that she can try if the pain returns. She has been very nauseated with th is left retro-orbital pain, and I will prescribe Zofran ODT if needed at home. Patient's pain resolved after the migraine cocktail. I do feel that she is stable for discharge home, and we discussed the importance of contacting her neurologist for close follow-up as well as returnto the ED if she develops vision changes or uncontrolled pain. FINAL IMPRESSION: 1. Headache Unspecified DISPOSITION/PLAN: PATIENT REFERRED TO: Ruddy Romero M.D. [id number] [facility] [id number] Schedule an appointment as soon as possible for a visit Call Tuesday to discuss your symptoms and 2 ED visits/labs. DISCHARGE MEDICATIONS: Discharge Medication List as of 11/22/2021 3:07 AM START taking these medications Details ondansetron ODT (ZOFRAN-ODT) 4 mg disintegrating tablet Dissolve 1 tablet (4 mg total) in the mouth every 6 (six) hours as needed for nausea or vomiting., Starting 11/22/2021, Normal SUMAtriptan (IMITREX) 50 mg tablet Take 1 tablet (50 mg total) by mouth as needed for migraine. May repeat dose once in 2 hours if migraine is unresolved. Do not exceed 200 mg in 24 hours., Starting 11/22/2021, Normal Chiquita Hawley D.O. Chiquita Hawley D.O. 11/22/21 0419 documented in this encounter Plan of Treatment Not on filedocumented as of this encounter Procedures Procedure Name Priority Date/Time Associated Diagnosis Comme nts C-REACTIVE PROTEIN STAT 11/22/2021 2:07 AM Res ults for this (CRP), S/P CDT procedure are i n the results section. documented in this encounter Results CRP (C-Reactive Protein) (11/22/2021 2:07 AM CDT) P athologist Signature C-Reactive <3.0 <=8.0 mg/L 11/22/2021 NPRG Protein (CRP), 2:53 AM CDT P Specimen Anatomical Collection Method Collection Time Receive d Time (Source) Location / / Volume Laterality Blood (Blood, 11/22/2021 2:07 AM 11/23/19 2:09 Venous) CDT AM CDT Chiquita Hawley D.O. LAB BLOOD ADD-ON Performing Organization Address City/State/ZIP Code Phon e Number [facility]- [address] [place], [place] [address] [facility] [place] [address] [facility] [address] documented in this encounter Visit Diagnoses Diagnosis Headache Unspecified - Primary documented in this encounter Administered Medications Inactive Administered Medications - up to 3 most recent administrations Medication Order MAR Action Action Date Dose Rate Site dexAMETHasone injection 10 mg Given 11/22/2021 12:40 AM CDT 10 m g (DECADRON) 10 mg, intravenous, Once, On 11/22/21 at 0014, For 1 dose diphenhydrAMINE injection 25 mg (BENADRY L) Given 11/22/2021 12:30 AM CDT 25 mg 25 mg, intravenous, Once, On 11/22/21 at 0014, For 1 dose ketorolac injection 15 mg (TORADOL) Given 11/22/2021 12:37 AM CDT 15 mg 15 mg, intravenous, Once, On 11/22/21 at 0014, For 1 dose, Adult IV push rate: Over 15 seconds. Peds IV push rate: Over 1 minute. 60 mg dose only for IM, not recommended for IV., Drug Monitoring Program: Pharmacist to adjust medication dosing based on indication and drug clearance factors. metoclopramide injection 20 mg (REGLAN) Given 11/22/2021 12:48 AM CDT 20 mg 20 mg, intravenous, Once, On 11/22/21 at 0014, For 1 dose NaCl 0.9 % bolus 1,000 mL New Bag 11/22/2021 12:28 AM CDT 1,000 mL 1000 mL/hr 1,000 mL, intravenous, at 1,000 mL/hr, Administer over 1 Hours, Once, On 11/22/21 at 0014, For 1 dose ondansetron ODT disintegrating tablet 4 mg Given 11/21/2021 11:5 5 PM CDT 4 mg (ZOFRAN-ODT) 4 mg, oral, Once, On 11/21/21 at 2346, For 1 dose, When splitting ODT at bedside, handle with gloves and a pill splitter to prevent moisture contact. sodium chloride 0.9 % injection 2-10 mL 2-10 mL, intravenous, As needed, line care, Starting o n 11/22/21 at 0013 documented in this encounter Active and Recently Administered Medications Times are shown in CDT. Scheduled Medication Order 11/20/2021 11/21/2021 11/22/2021 dexAMETHasone injection 10 mg (DECADRON) (COMPLETED) 0040 (Given - Provider: Leela Haynes R.N.) 10 mg, intravenous, Once, On 11/22/21 at 0014, For 1 dose diphenhydrAMINE injection 25 mg (BENADRYL) (COMPLETED) 003 (Given - Provider: Leela Haynes R.N.) 25 mg, intravenous, Once, On 11/22/21 at 0014, For 1 dose ketorolac injection 15 mg (TORADOL) (COMPLETED) 0037 (Given - Provider: Leela Haynes R.N.) 15 mg, intravenous, Once, On 11/22/21 at 0014, For 1 dose, Adult IV push rate: Over 15 seconds. Peds IV push rate: Over 1 minute. 60 mg dose only for IM, not recommended for IV., Drug Monitoring Prog vidya: Pharmacist to adjust medication dos ing based on indication and drug clearance factors. metoclopramide injection 20 mg (REGLAN) (COMPLETED) 004 (Given - Provider: Leela Haynes R.N.) 20 mg, intravenous, Once, On 11/22/21 at 0014, For 1 dose NaCl 0.9 % bolus 1,000 mL (COMPLETED) 002 (New Bag - Provider: Leela Haynes R.N.)0118 (Stopped - Provider: Leela Haynes R.N.) 1,000 mL, intravenous, at 1,000 mL/hr, A dminister over 1 Hours, Once, On 11/22/21 at 0014, For 1 dose ondansetron ODT disintegrating tablet 4 mg (ZOFRAN-ODT) (COM PLETED) 9575 (Given - Provider: Leela Haynes R.N.) 4 mg, oral, Once, On 11/21/21 at 2346 , For 1 dose, When splitting ODT at bedside, handle with gloves and a pill splitter to prevent moisture contact. PRN Medication Order 11/20/2021 11/21/2021 11/22/2021 sodium chloride 0.9 % injection 2-10 mL(Linked Group 1) 2-10 mL, intravenous, As needed, line care, Starting on Sun 11/22 at 0013 Linked Groups Order Group 1: Place peripheral IV: No upper extremity site restrictions (CANCELED) Upper extremity site restriction: No upp er extremity site restrictions
Quantity of PIVs requested: One
STAT, Once, On 11/22/21 at 0014, For 1 occurrence And sodium chloride 0.9 % injection 2-10 mLJump to med 2-10 mL, intravenous, As needed, line ca re, Starting on 11/22/21 at 0013 documented in this encounter Additional Health Concerns Assessment Noted Time PHQ-9 Depression Total Score: 2 07/15/2014 11:54 AM CD T documented as of this encounter Care Teams Bandoleer Packer Relationship Specialty Start Date End Date Elsewhere, Pcp PCP - General Internal Medicine 11/21/21 documented as of this encounter
--- OUTSIDE RECORDS SUMMARY | 2021-12-03 11:09 | XMS_ITS | Encounter Summary ---
:1955 Author Organization [facility] Address [address] [place] [address] Care Team Providers Name Role Phone Unavailable Primary Care Provider Unavailable Encounter Details Date Type Department Care Team Description 08/23/2014 Hospital Encounter HX [facility] Maninder Ochoa M.D. Social History Tobacco Use Types Packs/Day [...] Concentration - - Weight - - Height 178 cm (5' 10.08) 08/23/2014 9:27 AM CDT Body Mass Index - - documented in this encounter Miscellaneous Notes Miscellaneous - Maninder Ochoa M.D. - 08/24/2014 12:13 PM CDT Results Notification Document Contains Addenda Addendum by CITLALI GURROLA on 26 August 2014 15:37:44 CDT Discussed with patient at today's visit From: MANINDER OCHOA MD To: CITLALI GURROLA; Sent: 08/24/2014 12:13:19 CDT ! Show up: 08/24/2014 12:13:19 CDT Subject: Results Notification Actions: Notify patient-refer to General Message Reminder Comments: has appt with me 08/26/14. Remind me of this test result at that visit Results: Date Result Name Value Ref Range 08/23/2014 09:35 Sed Rate 29 mm/hr (0 - 29) Source: [facility] POWERCHART Document Id: [id number] Electronically signed by Conversion, [facility] Foot Piece Assembler [id number] at 08/09/2016 2:16 PM CDT documented in this encounter Plan of Treatment Not on filedocumented as of this encounter Procedures Procedure Name Priority Date/Time Associated Comments Diagnosis SEDIMENTATION RATE, B Routine 08/23/2014 9:35 AM Results for this CDT procedure are i n the results section. documented in this encounter Results Sedimentation Rate (08/23/2014 9:35 AM CDT) Analysis Performed At [facility] Time Signature Sedimentation 29 0 - 29 POWERCHART Rate, B MMHR Specimen (Source) Anatomical Collection Method Collection Time Re ceived Time Location / / Volume Laterality Blood 08/23/2014 9:35 AM CDT Maninder Ochoa M.D. LAB BLOOD ADD-ON Performing Organization Address City/State/ZIP Code Phon e Number POWERCHART documented in this encounter Visit Diagnoses Not on filedocumented in this encounter Additional Health Concerns Assessment Noted Time PHQ-9 Depression Total Score: 2 07/15/2014 11:54 AM CD T documented as of this encounter
--- OUTSIDE RECORDS SUMMARY | 2021-12-03 11:09 | XMS_ITS | Encounter Summary ---
:1955 Author Organization [facility] Address [address] [place] [address] Care Team Providers Name Role Phone Unavailable Primary Care Provider Unavailable Encounter Details Date Type Department Care Team Description 09/23/2014 Hospital Encounter HX [facility] Francia Ochoa M.D. Social History Tobacco Use Types Packs/Day Years Used Date Smoking Tobacco: Never Assessed Sex Assigned at Date Recorded Not on file documented as of this encounter Last Filed Vital Signs Vital Sign Reading Time Taken Comments Blood Pressure 130/78 09/23/2014 1:51 PM CDT Pulse 65 09/23/2014 1:51 PM CDT Temperature - - Respiratory Rate - - Oxygen Saturation - - Inhaled Oxygen Concentration - - Weight 109 kg (240 lb 4.8 oz) 09/23/2014 1:51 PM CDT Height 178 cm (5' 10.08) 09/23/2014 1:51 PM CDT Body Mass Index 34.4 09/23/2014 1:51 PM CDT documented in this encounter Progress Notes Maninder Ochoa M.D. - 09/23/2014 1:43 PM CDT [id number] INTERNAL MEDICINE OUTPATIENT VISIT NOTE CHIEF COMPLAINT/REASON FOR VISIT Followup of polymyalgia rheumatica and essential tremor. HISTORY OF PRESENT ILLNESS At the patient's previous visit, we began tapering her prednisone which was started to treat her polymyalgia rheumatica. 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 Fortunately, she is right-handed and does not have any significant tremor problem with that hand. She has continued to feel well in regard to her myalgias. She has not had any apparent problem with the prednisone including no dyspepsia, visual symptoms, insomnia, or leg/ankle swelling. She does have triamterene/hydrochlorothiazide available for controlling her lower extremity edema which she estimates she has been taking about once every 2 weeks. She does not feel there has been any major improvement in her tremor. She has noted some increase in hot flashes and also continues to have some churning abdominal discomfort when she feels stressed. PHYSICAL EXAMINATION VITAL SIGNS: Weight increased 3.2 kg to 109.0 kg. Blood pressure 138/74, heart rate 60 per minute and regular with no extrasystoles. Respirations even and unlabored at a normal rate, with oxygen saturation 97% on room air. GENERAL: She is mentally alert, pleasant and appropriate. HEENT: Palpebral conjunctivae with good color. Oral cavity adequately hydrated with no lesions noted. No facial asymmetry. NECK: Neck veins flat. Negative HJR. LUNGS: Clear with symmetric and satisfactory air movement. CARDIAC: Exam normal. ABDOMEN: Soft and nontender without organomegaly or mass. No leg or ankle edema. She has continued afine tremor of the outstretched left hand with nothing of that nature noted on the right side. Sed rate from today is pending. IMPRESSION/REPORT/PLAN 1. Polymyalgia rheumatica which is symptomatically controlled on the current dose of prednisone which is 4 mg twice daily. 2. 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 3. Hot flashes which have increased. The patient conjecturing that this may be just due to the recent warm weather although there is also a concern that this is some way related to the beta-darrell therapy (nothing listed as a side effect of this type in [facility]). 4. Continued abdominal churning discomfort which is thought to be on the basis of her neuropsychiatric disorder. PLAN: I increased the Effexor XR to 225 mg daily and the Inderal LA to 120 mg daily. Will decide what to do about the prednisone based on her sedimentation rate. I will see her again in 1 month to reassess in regard to the tremor, polymyalgia rheumatica and dysthymia. Maninder Ochoa M.D./pos Electronically Signed By: MANINDER OCHOA MD On: 09/24/2014 09:39 PM Source: [facility] MHSDOLBEYNONRADSYS Document Id: [id number] documented in this encounter Miscellaneous Notes Miscellaneous - Kenneth Munguia - 01/07/2015 1:[address] Ochoa Document Contains Addenda Addendum by ANETTE DODSON RN on 13 January 2015 08:56:39 RUBBER CUTTING MACHINE TENDER left voice mail that med was refilled at [facility] Addendum by MANINDER OCHOA MD on 13 January 2015 08:29:47 RUBBER CUTTING MACHINE TENDER From: MANINDER OCHOA MD To: [facility] Nurse; Sent: 01/13/2015 08:29:47 RUBBER CUTTING MACHINE TENDER Subject: RE: Dr. Ochoa pscp went to [facility] in [place] Addendum by ANETTE DODSON RN on 07 January 2015 14:12:02 CDT From: ANETTE DODSON RN ([facility] Nurse) To: MANINDER OCHOA MD; Sent: 01/07/2015 14:12:02 CDT Subject: FW: Dr. Ochoa pt would like to go back on Prempro due to her hot flashes. Increasing effexor and inderal didnot help at all. These meds were increased on 09/23/14. She says there is no hx of breast cancer in her family. She would rather go back on the prempro which helped the best with hot flashes From: KENNETH MUNGUIA ([facility]) To: [facility] Nurse; Cc: [facility]; Sent: 01/07/2015 13:31:02 CDT Subject: Dr. Ochoa If you need a prescription refill please call your pharmacy. Please allow 3 business days for processing. Call Center Template: ?? May we leave a message for you on this phone? ?? What can I help you with today? Gloria called in today and said that she had talked with Dr. Ochoaat her last appointment about going off the Prempro. She feels that she needs to go back on this medication. Please call her to discuss. Thank you. ?? If Medication Refill: o What is the medication? o What pharmacy do you use? o Have you contacted your pharmacy regarding this request? I will send this information to the appropriate staff member who will look into your concern. If thenurse needs to talk to you he or she will call you back within two hours. Thank you for calling [facility]. Source: [facility] POWERCHART Document Id: [id number] Electronically signed by Ryan, [facility] Service Restorer Emergency [id number] at 08/08/2016 5:30 PM CDT Miscellaneous - Citlali Gurrola, R.M.A. - 09/24/2014 10:55 AM CDT Sed Rate results Document Contains Addenda Addendum by MANINDER OCHOA MD on 25 September 2014 15:12:53 CDT From: MANINDER OCHOA MD To: CITLALI GURROLA; Sent: 09/25/2014 15:12:53 CDT Subject: RE: Sed Rate results noted. I'll refill prednisone 1 mg pills Addendum by CITLALI GURROLA on 25 September 2014 15:03:47 CDT From: CITLALI GURROLA To: MANINDER OCHOA MD; Sent: 09/25/2014 15:03:47 CDT Subject: RE: Sed Rate results Patient was notified of results. She is requesting a refill of her prednisone. She is scheduled to recheck her Sed Rate on 10/11/14. Please send the refill to [facility] From: CITLALI GURROLA To: CITLALI GURROLA; Sent: 09/24/2014 10:55:20 CDT Subject: Sed Rate results Per Dr Ochoa Sed Rate is up significantly, remain on Prednisone Recheck sed rate in 2 weeks Left message for patient to call back Source: [facility] POWERCHART Document Id: [id number] Electronically signed by [facility] Service Restorer Emergency [id number] at 08/08/2016 5:30 PM CDT Miscellaneous - Maninder Ochoa M.D. - 09/23/2014 2:33 PM CDT Ambulatory Patient Summary [address] [id number] Visit Information Name: GLORIA GARCIA [facility] Number: [id number] Current Date: 09/23/2014 14:33:59 Physicians Attending Provider: MANINDER OCHOA MD Primary Care Provider: MANINDER OCHOA MD GLORIA GARCIA has been given the following list [...] Take Indications/Special Instructions/Comments/Notes for Patient Medication Changes/Routing emollients, topical (Tetrix Cream topical kit) See Instructions apply to skin of hands Daily predniSONE (predniSONE 1 mg oral tablet) See Instructions take as directed; 5m AM/4 mg PM X 2 wks, then 4 mg bid X 2 wks, then per doctor after SedRate rechecked propranolol (Inderal LA 120 mg oral capsule, extended release) 1 cap, Oral, once a day This is a CHANGE Routed to [address] [address] triamterene-hydrochlorothiazide (triamterene-hydrochlorothiazide 37.5 mg-25 mg oral tablet) 1 Tablet(s), Oral, once a day as needed for Swelling This is a CHANGE venlafaxine (Effexor XR 150 mg oral capsule, extended release) 1 cap, Oral, once a day venlafaxine (Effexor XR 75 mg oral capsule, extended release) 1 cap, Oral, once a day take with effexor XR 150 mg pill for total dose 225 mg per day Routed to [place] [id number] [facility] [address] [place], [place] [id number] Stop Taking the Following Medications: Medication list as of 09-23-14 14:33 Attention: If you have any medications at home that are not on this list, DO NOT take them until youcontact your provider for clarification. Give a copy of your medication list to your primary care provider. Update your medication list any time medications or doses are changed and carry your medication list at all times in case of emergency. Electronically Signed By: MANINDER OCHOA MD Signed On:23-SEP-2014 14:30:44 Your Allergies & Intolerances Substance Reaction Symptoms Category Comments No Known Allergies Your Problem List Problem Status Onset Comments Exam Gynecological Normal Active Headache (JARA) NOS Active Obesity NOS Active Anxiety NOS Active Hormone Therapy Status Active Hypertension (HTN) Chronic Active Chronic Pain Syndrome Active 07/22/14 No pain contract signed. Indication: Myalgia. Tramadol Your Upcoming Appointments Date Time Location Provider 2014 10:45 [facility] Maninder Ochoa MD Attention: Contact your local Clinic if further [...] if you dont have one. Go to [email or web address] and click on Create Your Account. Then, follow the directions to complete the online form. Youll be asked for your [facility] number which you can find at the top of this document. Your Goals/Additional instructions: Source: [facility] POWERCHART Document Id: [id number] Miscellaneous - Maninder Ochoa M.D. - 09/23/2014 2:33 PM CDT Ambulatory Discharge Medication List [address], [place] [id number] Visit Information Name: GLORIA GARCIA [facility] Number: [id number] Visit Date: 09/23/2014 14:33:57 Attending Provider: MANINDER OCHOA MD Primary Care Provider: MANINDER OCOHA MD GLORIA GARCIA has been given the following list of medications: Your Medications It is important to take your medications as directed. Use a pill box or chart to help remind you to take your medications. Please let your doctor or nurse know if you have problems taking your medications. Medication/Strength How to Take Indications/Special Instructions/Comments/Notes for Patient Medication Changes/Routing emollients, topical (Tetrix Cream topical kit) See Instructions apply to skin of hands Daily predniSONE (predniSONE 1 mg oral tablet) See Instructions take as directed; 5m AM/4 mg PM X 2 wks, then 4 mg bid X 2 wks, then per doctor after SedRate rechecked propranolol (Inderal LA 120 mg oral capsule, extended release) 1 cap, Oral, once a day This is a CHANGE Routed to [facility] [address] triamterene-hydrochlorothiazide (triamterene-hydrochlorothiazide 37.5 mg-25 mg oral tablet) 1 Tablet(s), Oral, once a day as needed for Swelling This is a CHANGE venlafaxine (Effexor XR 150 mg oral capsule, extended release) 1 cap, Oral, once a day venlafaxine (Effexor XR 75 mg oral capsule, extended release) 1 cap, Oral, once a day take with effexor XR 150 mg pill for total dose 225 mg per day Routed to [address] [address] Stop Taking the Following Medications: Medication list as of 09-23-14 14:33 Attention: If you have any medications at home that are not on this list, DO NOT take them until youcontact your provider for clarification. Give a copy of your medication list to your primary care provider. Update your medication list any time medications or doses are changed and carry your medication list at all times in case of emergency. Electronically Signed By: MANINDER OCHOA MD Signed On:23-SEP-2014 14:30:44 Additional Information: Source: [facility] Healthcare Bluebook Document Id: [id number] Miscellaneous - Ting Haynes R.M.A. - 09/23/2014 1:51 PM CDT Adult Records Associate Intake/History Adult Records Associate Intake/History Entered On: 09/23/2014 13:53 CDT Performed On: 09/23/2014 13:51 CDT by TING HAYNES Intake Chief Complaint : 1) Hot flashes getting worse 2) Medicatin follow up Temperature Core : 36.6 DegC(Converted to: 97.9 DegF) Peripheral Pulse Rate : 65 /min Systolic Blood Pressure : 130 mmHg Diastolic Blood Pressure : 78 mmHg NIBP Mean : 95 mmHg SpO2 : 97 % Oxygen Therapy : Room air Height : 178 cm(Converted to: 5 ft 10 inch(es), 70 inch(es)) Actual Weight : 109.0 kg(Converted to: 240 lb 5 oz) Dosing Weight Clinic : 109 kg Clinic BSA : 2.32 Body Mass Index : 34.4 kg/m2 TING HAYNES - 09/23/2014 13:51 CDT General Info Languages : Bulgarian Is Patient Female and 13-50 no hysterectomy : No TING HAYNES - 09/23/2014 13:51 CDT Subjective Pain Symptoms : No TING HYANES - 09/23/2014 13:51 CDT Dependent Habits Tobacco Use/Currently Using : No Exposure to Tobacco Smoke : Other: never Smoking Status : Never smoker TING HAYNES - 09/23/2014 13:51 CDT Caffeine Use Grid Caffeine Use : Current Type : Coffee Frequency : Daily Amount : couple cups daily TING HAYNES - 09/23/2014 13:51 CDT Recreational Drug Use Grid Drug Use : None TING HAYNES 09/23/2014 13:51 CDT Source: [facility] Document Id: [id number]!33 Telephone Encounter - Soledad Gibson L.P.N. - 09/23/2014 11:[address] Ochoa/addendum to note 09/23 [facility] Document Contains Addenda From: SOLEDAD GIBSON BIOMETRICS ANALYST [facility]; Sent: 09/23/2014 11:57:37 CDT Subject: Dr Ochoa/addendum to note 09/23 [facility] Caller is: ( x) Patient ( ) Mother ( ) Father ( ) Spouse ( ) Daughter ( ) Son ( ) Pharmacy ( ) Other: Physician: Dr Ochoa Patient MRN #: Reason for Call: Message: please see addendum to note 09/23 than ks Advice/Action: Source used: ( ) Verbalizes understanding of instructions ( ) Instructed to call back if symptoms worsen or do not resolve ( ) Refused to see provider ( ) Appointment Scheduled ( ) OK to leave message on voice mail ( ) Patient told to expect return call: ( ) today ( ) tomorrow ( ) next work day ( ) Patient's email ( ) Patient told physician out of office, will call upon return call on ( ) ( ) Patient told physician out of office, routed to other physician ( ) Other ( ) Call back telephone number ( ) Call back cell phone number ( ) Source: [facility] Healthcare Bluebook Document Id: [id number] Electronically signed by Conversion, [facility] Service Restorer Emergency [id number] at 08/08/2016 5:30 PM CDT documented in this encounter Plan of Treatment Not on filedocumented as of this encounter Procedures Procedure Name Priority Date/Time Associated Comments Diagnosis SEDIMENTATION RATE, B Routine 09/23/2014 2:26 PM Results for this CDT procedure are i n the results section. documented in this encounter Results (ABNORMAL) Sedimentation Rate (09/23/2014 2:26 PM CDT) [facility] gist Method Time Signature Sedimentation 38 (H) 0 - 29 POWERCHART Rate, B MMHR Specimen (Source) Anatomical Collection Method Collection Time Re ceived Time Location / / Volume Laterality Blood 09/23/2014 2:26 PM CDT Maninder Ochoa M.D. LAB BLOOD ADD-ON Performing Organization Address City/State/ZIP Code Phon e Number POWERCHART documented in this encounter Visit Diagnoses Not on filedocumented in this encounter Additional Health Concerns Assessment Noted Time PHQ-9 Depression Total Score: 2 07/15/2014 11:54 AM CD T documented as of this encounter
--- OUTSIDE RECORDS SUMMARY | 2021-12-03 11:09 | XMS_ITS | Encounter Summary ---
:1955 Author Organization [facility] Address [address] [place] [address] Care Team Providers Name Role Phone Unavailable Primary Care Provider Unavailable Encounter Details Date Type Department Care Team Description 11/25/2014 Hospital Encounter HX [facility] Francia Huerta M.D. Social History Tobacco Use Types Packs/Day Years Used Date Smoking Tobacco: Never Assessed Sex Assigned at Date Recorded Not on file documented as of this encounter Last Filed Vital Signs Vital Sign Reading Time Taken Comments Blood Pressure 146/82 11/25/2014 11:10 AM CDT Pulse 73 11/25/2014 11:10 AM CDT Temperature - - Respiratory Rate - - Oxygen Saturation - - Inhaled Oxygen Concentration - - Weight 112 kg (246 lb 11.1 oz) 11/25/2014 11:10 AM CDT Height 178 cm (5' 10.08) 11/25/2014 11:10 AM CDT Body Mass Index 35.32 11/25/2014 11:10 AM CDT documented in this encounter Progress Notes Maninder Ochoa M.D. - 11/25/2014 10:56 AM CDT [id number] CHIEF COMPLAINT/REASON FOR VISIT Two month follow up essential tremor, polymyalgia rheumatica, anxiety/depression, and hot flashes. HISTORY OF PRESENT ILLNESS The visit was for discussion, counseling, and coordination of care purposes only and did not involvesignificant physical examination. It was noted that she continues to have some intention tremor of the left hand although that appeared to have improved. Last time she was in on September 23 her Inderal LA was increased to 120 mg daily because of the tremor. Effexor XR was increased to 225 mg daily to deal with hot flashes and prednisone was increased to 5 mg 3 times a day because her polymyalgia rheumatica symptoms had increased and her sed rate went back up to 40. 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 The hot flashes really have not improved significantly but the patient feels that the increased dose of Effexor has favorably affected her mood disturbance. The myalgias have come under control with the increase in the prednisone dose. The patient tells me that she used Prempro in the past but does want to go back on it and is willing to put up with the current level of hot flashes. As regards to tremor she does continue to have a cup of coffee with caffeine in it to jump start her early in the day. She feels that she cannot give that up and is accepting of her current level of tremor in order that she not do so. She thinks that she may be feeling overly warm at work and home because of the weather being relatively warm recently. She is hoping that things will improve in this regard once we get into the Fall season.Her weight is up 2.4 kg likely related to the combination of prednisone and an increased dose of Effexor. Her blood pressure was satisfactory at 146/82. She did not have any lower extremity edema as anexplanation for her weight gain. IMPRESSION/REPORT/PLAN We decided to leave the prednisone at 5 mg 3 times a day for the next month and recheck the sedimentation rate at the end of that. If she continues to be free of her myalgias and the sed rate comes down at all, then we can start tapering her prednisone again. The venlafaxine and Inderal LA doses were also left at their current levels. Her next appointment with me will be in 2 months. She is aware that she will need to establish with one of the other primary care providers as of April 13, 2015 . Maninder Ochoa M.D./pos Electronically Signed By: MANINDER OCHOA MD On: 11/27/2014 12:16 PM Modified by and Electronically Signed by: MANINDER OCHOA MD On: 11/27/2014 12:16 PM Source: [facility] [id number] Document Id: [id number] documented in this encounter Miscellaneous Notes Miscellaneous - Kayley Martínez - 02/03/2015 4:17 PM CST Citlali - returning call Document Contains Addenda Addendum by CITLALI GURROLA on 03 February 2015 16:23:08 SAP DIRECTOR Discussed results with patient. See reminder messages Addendum by VANESSA CALIX RN on 03 February 2015 16:19:34 SAP DIRECTOR From: VANESSA CALIX RN ([facility] Nurse) To: CITLALI GURROLA; Sent: 02/03/2015 16:19:34 SAP DIRECTOR Subject: FW: Citlali - returning call From: KAYLEY MARTÍNEZ ( Call Center) To: [facility] Nurse; Cc: [facility] Call Center; Sent: 02/03/2015 16:17:01 SAP DIRECTOR Subject: Citlali - returning call If you need a prescription refill please call your pharmacy. Please allow 3 business days for processing. Call Center Template: ?? May we leave a message for you on this phone? ?? What can I help you with today? Patient returning Citlali's call. Please try her again: [phone] ?? If Medication Refill: o What is the medication? o What pharmacy do you use? o Have you contacted your pharmacy regarding this request? I will send this information to the appropriate staff member who will look into your concern. Someone will call you back within 4 business hours.. Thank you for calling [facility]. Source: [facility] POWERCHART Document Id: [id number] Electronically signed by [facility] Shipping And Receiving Coordinator [id number] at 08/09/2016 6:36 PM CDT Miscellaneous - Anette Haley R.N. - 01/22/2015 12:08 PM CST Med Management:Prednisone Document Contains Addenda Addendum by ANETTE HALEY RN on 23 January 2015 09:04:37 SAP DIRECTOR left for pt Addendum by KELLIE PEREZ PATIENT AMBASSADOR on 22 January 2015 15:58:11 SAP DIRECTOR From: KELLIE PEREZ NP Sent: 01/22/2015 15:58:11 SAP DIRECTOR Subject: RE:Med Management:Prednisone Approved Order:predniSONE (predniSONE 5 mg oral tablet) 1 tab(s) PO 3xDay Qty: 100 tab(s) Refills: 0 Substitutions Allowed Route To Pharmacy [id number] Signed by KELLIE PEREZ NP 01/22/2015 15:58:05 Addendum by ANETTE HALEY RN on 22 January 2015 13:39:36 SAP DIRECTOR From: ANETTE HALEY RN To: KELLIE PEREZ PATIENT AMBASSADOR; Sent: 01/22/2015 13:39:36 SAP DIRECTOR Subject: Med Management:Prednisone On hold pending signature Order:predniSONE (predniSONE 5 mg oral tablet) 1 tab(s) PO 3xDay Qty: 100 tab(s) Refills: 0 Substitutions Allowed Route To Pharmacy [id number] Caller is: ( x ) Patient ( ) Mother ( ) Father ( ) Spouse ( ) Daughter ( ) Son ( x ) Pharmacy ( ) Other: Provider: Juli Ochoa Pharmacy: [facility] Name of Medications Needing Refill:Prednisone 5mg Tid Last Refill Date: Additional Information:Pt take it for Poymylagia Rheumatica. Pt has been unable to titrate off of itdue to her sed rate being high still. Can you renew for pt. Pt will be out by tomorrow Last / Future Appointment:02/03/15 Disposition: (x ) Send to Pharmacy ( ) Call to Pharmacy ( ) Patient will pharmacy picking technician Script ( ) Mail Rx to Patient From: ANETTE HALEY RN ([facility] Nurse) To: MANINDER OCHOA MD; Sent: 01/22/2015 12:08:08 SAP DIRECTOR Subject: Med Management:Prednisone On hold pending signature Order:predniSONE (predniSONE 5 mg oral tablet) 1 tab(s) PO 2xDay Qty: 60 tab(s) Refills: 0 Substitutions Allowed Route To Pharmacy - [id number] Caller is: ( ) Patient ( ) Mother ( ) Father ( ) Spouse ( ) Daughter ( ) Son ( x) Pharmacy ( ) Other: Provider: [place] [facility] [place] Name of Medications Needing Refill: Prednisone 5mg bid Last Refill Date: 10/18/2014 Additional Information: Direct to provider RN Last / Future Appointment: Disposition: ( ) Send to Pharmacy ( ) Call to Pharmacy ( ) Patient will pharmacy picking technician Script ( ) Mail Rx to Patient Source: [facility] POWERCHART Document Id: [id number] Electronically signed by Conversion, [facility] Shipping And Receiving Coordinator [id number] at 08/09/2016 6:36 PM CDT Miscellaneous - Maninder Ochoa M.D. - 01/13/2015 8:29 AM CST Ambulatory Patient Summary [address] [id number] Visit Information Name: GLORIA GARCIA RACHEL [facility] Number: [id number] Current Date: 01/13/2015 08:29:02 Physicians Attending Provider: MANINDER OCHOA MD Primary [...] you have problems taking your medications. Medication/Strength Dose Route Frequency Indications/Special Instructions/Comments/Notes conjugated estrogens-medroxyPROGESTERone (Prempro 0.3 mg-1.5 mg oral tablet) 1 tab(s) Oral once a day propranolol (Inderal LA 120 mg oral capsule, extended release) 120 mg Oral once a day venlafaxine (Effexor XR 75 mg oral capsule, extended release) 75 mg Oral once a day take with effexor XR 150 mg pill for total dose 225 mg per day venlafaxine (Effexor XR 150 mg oral capsule, extended release) 150 mg Oral once a day triamterene-hydrochlorothiazide (triamterene-hydrochlorothiazide 37.5 mg-25 mg oral tablet) 1 tab(s)Oral once a day as needed for Swelling emollients, topical (Tetrix Cream topical kit) See Instructions apply to skin of hands Daily Attention: If you have any medications at [...] Electronically Signed By: MANINDER OCHOA MD Signed On:13-JAN-2015 08:28:57 Your Allergies & Intolerances Substance Reaction Symptoms Category Comments No Known Allergies Your Problem List Problem Status Onset Comments Exam Gynecological Normal Active Headache (JARA) NOS Active Obesity NOS Active Anxiety NOS Active Hormone Therapy Status Active Hypertension (HTN) Chronic Active Chronic Pain Syndrome Active 07/22/14 No pain contract signed. Indication: Myalgia. Tramadol Polymyalgia Rheumatica (PMR) Active Tremor Essential NOS Active Your Upcoming Appointments Date Time Location Provider 01/31/2015 11:30 [facility] Lab [facility] Lab 02/03/2015 11:15 [facility] Maninder Ochoa MD Attention: Contact [...] if you dont have one. Go to [email or web address] and click on Create Your Account. Then, follow the directions to complete the online form. Youll be asked for your [facility] number which you can find at the top of this document. Your Goals/Additional instructions: Source: [facility] POWERCHART Document Id: [id number] Miscellaneous - Maninder Ochoa M.D. - 01/13/2015 8:29 AM CST Ambulatory Discharge Medication List [address] [id number] Visit Information Name: GLORIA GARCIA [facility] Number: [id number] Visit Date: 01/13/2015 08:29:01 Attending Provider: MANINDER OCHOA MD Primary Care Provider: MANINDER OCHOA MD GLORIA GARCIA has been given the following list of medications: Your Medications It is important to take your medications as directed. Use a pill box or chart to help remind you to take your medications. Please let your doctor or nurse know if you have problems taking your medications. Medication/Strength Dose Route Frequency Indications/Special Instructions/Comments/Notes conjugated estrogens-medroxyPROGESTERone (Prempro 0.3 mg-1.5 mg oral tablet) 1 tab(s) Oral once a day propranolol (Inderal LA 120 mg oral capsule, extended release) 120 mg Oral once a day venlafaxine (Effexor XR 75 mg oral capsule, extended release) 75 mg Oral once a day take with effexor XR 150 mg pill for total dose 225 mg per day venlafaxine (Effexor XR 150 mg oral capsule, extended release) 150 mg Oral once a day triamterene-hydrochlorothiazide (triamterene-hydrochlorothiazide 37.5 mg-25 mg oral tablet) 1 tab(s)Oral once a day as needed for Swelling emollients, topical (Tetrix Cream topical kit) See Instructions apply to skin of hands Daily Attention: If you have any medications at [...] Electronically Signed By: MANINDER OCHOA MD Signed On:13-JAN-2015 08:28:57 Additional Information: Source: [facility] POWERCHART Document Id: [id number] [place] - Citlali Gurrola R.M.A. - 11/25/2014 11:10 AM CDT Adult Safety Net Maker Intake/History Adult Safety Net Maker Intake/History Entered On: 11/25/2014 11:12 CDT Performed On: 11/25/2014 11:10 CDT by CITLALI GURROLA Intake Chief Complaint : Follow up sed rate results Temperature Core : 36.6 DegC(Converted to: 97.9 DegF) Peripheral Pulse Rate : 73 /min Systolic Blood Pressure : 146 mmHg (HI) Diastolic Blood Pressure : 82 mmHg NIBP Mean : 103 mmHg BP Location : Right upper extremity Blood Pressure Cuff Size : Regular SpO2 : 98 % Oxygen Therapy : Room air Height : 178 cm(Converted to: 5 ft 10 inch(es), 70 inch(es)) Actual Weight : 111.9 kg(Converted to: 246 lb 11 oz) Weight Source : Standing scale Dosing Weight Clinic : 111.9 kg Clinic BSA : 2.35 Body Mass Index : 35.32 kg/m2 CITLALI GURROLA - 11/25/2014 11:10 CDT General Info Information Given By : Patient Languages : Kinyarwanda Is Patient Female and 13-50 no hysterectomy : No CITLALI GURROLA - 11/25/2014 11:10 CDT Subjective Pain Symptoms : CITLALI Kong - 11/25/2014 11:10 CDT Dependent Habits Tobacco Use/Currently Using : No Exposure to Tobacco Smoke : Other: never Smoking Status : Never smoker CITLALI GURROLA - 11/25/2014 11:10 CDT Caffeine Use Grid Caffeine Use : Current Type : Coffee Frequency : Daily Amount : couple cups daily CITLALI GURROLA - 11/25/2014 11:10 CDT Recreational Drug Use Grid Drug Use : None CITLALI GURROLA - 11/25/2014 11:10 CDT Source: [place] [facility] Document Id: [id number]!37 documented in this encounter Plan of Treatment Not on filedocumented as of this encounter Visit Diagnoses Not on filedocumented in this encounter Additional Health Concerns Assessment Noted Time PHQ-9 Depression Total Score: 2 07/15/2014 11:54 AM CD T documented as of this encounter
--- OUTSIDE RECORDS SUMMARY | 2021-12-03 11:09 | XMS_ITS | Encounter Summary ---
:1955 Author Organization [facility] Address [address] [place] [address] Care Team Providers Name Role Phone Unavailable Primary Care Provider Unavailable Encounter Details Date Type Department Care Team Description 11/05/2013 Hospital Encounter HX [facility] INTERNMED Francia Ochoa M.D. Social History Tobacco Use Types Packs/Day Years Used Date Smoking Tobacco: Never Assessed Sex Assigned at Date Recorded Not on file documented as of this encounter Last Filed Vital Signs Vital Sign Reading Time Taken Comments Blood Pressure 166/90 11/05/2013 9:19 AM CDT Pulse 78 11/05/2013 9:19 AM CDT Temperature - - Respiratory Rate - - Oxygen Saturation - - Inhaled Oxygen Concentration - - Weight 110 kg (241 lb 6.5 oz) 11/05/2013 9:19 AM CDT Height 177.5 cm (5' 9.88) 11/05/2013 9:19 AM CDT Body Mass Index 34.75 11/05/2013 9:19 AM CDT documented in this encounter Progress Notes Maninder Ochoa M.D. - 11/05/2013 9:13 AM CDT [id number] CHIEF COMPLAINT/REASON FOR VISIT Referral from [facility] for assessment of hypertension; establishment of primary care. PAST MEDICAL/SURGICAL HISTORY 1. Hypertension. 2. Impaired glucose tolerance. 3. Dyslipidemia. 4. Overweight. 5. Work-related hand eczema. 6. Hearing loss with tinnitus. 7. Chronic left knee pain and swelling status post arthroscopic treatment of meniscal tear. 8. Right foot pain and swelling related to previous fracture, orthopedic surgical management pending. 9. Right upper and proximal forearm discomfort 8 months' duration. 10. Estrogen withdrawal symptomatology. 11. Morning headaches. 12. Cervical spine spurs with a history of neck pain. 13. Anxiety, treated with venlafaxine. HISTORY OF PRESENT ILLNESS Gloria is a 58-year-old female here to see me today on referral from Dr. Gutierrez, specifically in regardto elevated blood pressure readings that were obtained [facility]. Patient moved to the [facility] about 2 years ago and to this point has not established with any other primary care provider. Her previous primary care provider was a Dr. Grimaldo, at [facility] in [place]. She has already signed information release forms and had records sent to the [facility] and we will obtain copies of these. In addition to the blood pressure concern, the patient said that she has been having morning headaches which do not seem to be related to her cervical spine arthritis and spurs. The actual cause of these headaches is unclear. She has not had them formally evaluated previously. They are frontal and steady in nature. She gets some relief from her naproxen which she takes chronically twice daily related to her left knee problem. She is also having discomfort in the area of the right deltoid with this radiating into the proximal forearm. This discomfort is described as an ache and has been going on for about 8 months. 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 There was no specific trauma that seemed to set this off. She also has a little bit of a numb, tingling sensation in the fingers of her right hand, concurrent with the arm discomfort. She did haveMRI scan done on her cervical spine at some point and there was no evidence of a pinched nerve andshe did not have any kind of injection therapy to deal with her cervical spine spurs. She checked h er blood pressure regularly in the past at home and got normal readings. More recently she has been too busy to check them so was not aware that blood pressure had increased until she was evaluated at the [facility] recently. She is perimenopausal and recently went off her Prempro. Has indicated the venlafaxine was actually started for anxiety several years ago. She has not been able to exercise and has gained a fair amountof weight, about 20 pounds over the last year. 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 As regards to the impaired glucose metabolism, the patient states that she has been aware of this for a long time. She had diabetes of with all 3 of her pregnancies. A sister had type 2 diabetes which went away after bariatric surgery. The patient has not been having any polyuria but has noted a significant increase in thirst recently. Blood sugar was [address] Gutierrez earlier this month. Her lipid profile looked mildly concerning with total cholesterol 225, LDL 130 and triglycerides 165. The HDL appeared to be at least somewhat protective at 62. She continues to have some element of anxiety which she describes as worms in the pit of her stomach. The Effexor has held this in check but has not totally eliminated the symptoms. MEDICATIONS Naproxen 500 mg twice daily on a long-term basis. Venlafaxine XR 75 mg daily on a long-term basis. Triamterene-hydrochlorothiazide 37.5-25 mg daily. Emollient cream called Tetrix which she applies to her hands each evening inside of plastic gloves in order to treat hand eczema related to chemical contact in her work. ALLERGIES None known to medications. Does have some reactivity to HOPS, CHOCOLATE and MOLDS. HEALTH HABITS: Never a cigarette smoker. Typically a glass of wine in the evening. Typically 2 cups of caffeine containing coffee per day. No recreational drugs. IMMUNIZATIONS: She does not get influenza vaccine. Had Tdap a year ago. Was told to get a Pneumovax 10 years after she had a bout of histoplasmosis of that being a booster. Has not had other vaccinations such as Zostavax, HIV, hemophilus influenza B (HIB), meningococcus or hepatitis vaccines. Coloscopy done at age 50, recommended a 10-year followup. Mammogram and breast examination done in conjunction with the [facility] evaluation. Pelvic and Pap done in conjunction with [facility] evaluation. PAST MEDICAL/SURGICAL HISTORY SURGICAL: Her only surgery was the left knee arthroscopy with meniscus repair. MEDICAL: Hypertension. Dyslipidemia. Impaired glucose metabolism. Remote history of histoplasmosis. Anxiety as noted. FAMILY HISTORY Positive for bladder cancer and rheumatoid arthritis in her mother. Glaucoma in her father. Thyroid disease in mother and sisters which lead to surgical management. Diabetes in sister as noted. Very positive for coronary artery disease with father having had many problems with that having coronary bypass surgery and eventually dying of his heart disease. A brother had a heart attack in his 70s. A sister had a massive myocardial infarction at age 59, leaving her with a 20% ejection fraction. No family history of colon cancer, breast cancer, abdominal aortic aneurysm, stroke or obstructive sleep apnea. SOCIAL HISTORY The patient is and lives with her in their home on [address]. 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 Their 3 children are grown and out of the home. Two living in the area, one in [place]. Patient is a [place] of [place], [place]. She occasionally babysits her grandchildren but does notdo so on a regular basis. They moved here from [place], [place], 2 years ago to quiet down their lifestyle. SYSTEMS REVIEW SYSTEMIC: Feels warm a lot but does not have perspiring including no hot flashes at night. Twenty pound weight gain over the last year. No problem with fever or chilling. Good overall sense of well-being. HEENT: Hearing loss with tinnitus as noted. Otherwise negative. Has negative dentition. SKIN AND INTEGUMENT: Hand eczema related to exposure of chemicals at work, otherwise negative. RESPIRATORY: Negative throughout. CARDIAC: Occasional palpitations with no associated lightheadedness, dizziness, shortness of breath or chest pain. She had a previous graded exercise test a number of years ago and that was normal. No orthopnea, PND, leg swelling, syncope or collapse. ENDOCRINE: Heat intolerance and weight gain as noted. Some increased thirst as noted. GI TRACT: Negative throughout. : As noted, slowing of the urination with urine coming out in spurts. No dysuria or gross hematuria. No vaginal bleeding or discharge. MUSCULOSKELETAL: As noted above, otherwise negative. VASCULAR: Negative includingno ambulatory claudication. Gets Charley horses in her right leg at night. Discussed treatment thereof. NEUROLOGIC: Headaches and finger numbness as noted above. No episodes of transient focal neurologic deficit. No paresthesias in the feet. EMOTIONS/MENTATION: Status quo with some ongoing anxiety and mild exacerbation related to losing his job, otherwise negative. SLEEP: Admits that she snores, sometimes loudly and sometimes disruptive to the sleep of her . Has not been told that she has apnea episodes during sleep. No daytime hypersomnia, restless legs, or bruxism. PHYSICAL EXAMINATION VITAL SIGNS: Weight 109.5 kg, which is a 7.4 kg increase since September 2012. Height 177.5 cm. Body massindex 34.8 kg/m2. Blood pressure when I checked it 160/94. The teachers assistant got 166/90 using the spring-gauge cuff on the wall. Heart rate 72 and regular. No extrasystoles. Respirations even and unlaboredat a normal rate with oxygen saturation 97% on room air. GENERAL: Alert, oriented, pleasant and appropriate, moderately overweight, middle-aged female. HEENT: Head normocephalic with no evidence of previous trauma and no retrognathia or micrognathia. PERRL EOMI with no nystagmus. No scleral icterus. Palpebral conjunctiva with good color. Ear canal is patent with normal right TM, that on the left having a slight yellowish discoloration. Patient denying any problems with previous infections, etc. Oral cavity adequately hydrated. No lesions noted with [place] dentition in satisfactory repair. No uvula, soft palate or tonsillar hypertrophy. Grade II Mallampati index with tongue protruding in the midline. No facial droop. SKIN: Inspection basically unremarkable throughout. NECK: Supple. No increased JVP. Negative HJR. No thyromegaly or thyroid nodules. No carotid bruits or decreased carotid pulsations. No submandibular, cervical or supraclavicular lymphadenopathy or mass. No inguinal lymphadenopathy. LUNGS: Clear to percussion on auscultation with symmetric and satisfactory air exchange. CARDIAC EXAMINATION: Without pathologic sounds or left ventricular lift. ABDOMEN: Has normal bowel sounds. Is nondistended and is generally soft and nontender with no organomegaly or mass. No epigastric bruit or prominent/widening of the abdominal aortic pulsation. No flankor bruit on either side. Radial, femoral and pedal pulses are normal. No femoral bruits. No leg or ankle edema. There is tenderness over the deltoid muscle of the right upper arm. No tenderness over the supraspinatus tendon or coracoid process. Full range of motion of the right arm without precipitating any discomfort and without asymmetry compared to the left side. DTRs are symmetrical within normallimits including normal relaxation phase in both the upper and lower extremities. Subjective decrease in pinprick and vibratory sensation in the toes, more so on the right than on the left. Normal gripstrength without asymmetry. Normal plantar and dorsiflexion strength to the feet without asymmetry. Babinski sign negative bilaterally. DIAGNOSTIC DATA: Today's laboratory work pending. Recent fasting glucose was 116. TSH 1.6. Lipid panel as noted. IMPRESSION/REPORT/PLAN 1. Hypertension, which is probably essential in nature although the naproxen therapy and possible obstructive sleep apnea could be contributing secondary causes. 2. Impaired glucose metabolism with history of diabetes of . 3. Moderate lipid abnormalities. 4. Strongly positive family history of coronary artery disease. 5. Overweight. 6. Anxiety neurosis, partially subdued. 7. Perimenopausal with estrogen withdrawal symptomatology. 8. Morning headache of uncertain mechanism. 9. Right upper extremity discomfort and finger numbness of uncertain etiology. The tenderness over the deltoid muscle certainly suggests some type of muscular injury, possible precipitated and perpetuated by work activities. 10. History of cervical spine spurs and presumably degenerative arthritis. 11. Chronic left knee arthritis with the history of meniscal injury and repair. 12. Recent traumatic right foot fracture with upcoming orthopedic surgical management. 13. Hearing loss with tinnitus. 14. Work-related hand eczema. 15. History of palpitations. 16. Slowing of voiding of uncertain etiology. PLAN: After I do a review of the old records, I will be making decisions regarding hypertension treatment, dyslipidemia treatment, hyperglycemia treatment and further evaluation as indicated. She was given her Pneumovax booster today. She will have overnight pulse oximetry. A1c, SGPT, basic metabolic profile and CBC. I am considering getting a heart scan to get a calcium score to help guide the dyslipidemia management. Encouraged to lose weight through diet and exercise. Suggested limiting her naproxen to as little as possible in view of its contribution to her hypertension. Venlafaxine was increased to 150 mg daily. Her Tetrix cream was prescribed at her pharmacy. Continue the current diuretic for her blood pressure. Encouraged home blood pressure readings on a routine basis with a list of results to be brought back for review. Advised to consult with her orthopedic surgeon regarding her right u pper extremity discomfort. If she is not getting adequate control of her estrogen withdrawal symptoms with the increase in Effexor, would consider putting her back on estrogen therapy. If she is not getting improvement in her headaches, would consider neurology consultation. Follow up with me in a month or so with interim blood pressure readings to be reviewed at that visit. Maninder Ochoa M.D./pos cc: Jm Gutierrez M.D. [facility] in [address] [address] Electronically Signed By: MANINDER OCHOA MD On: 11/06/2013 03:59 PM Source: [facility] [id number] Document Id: [id number] documented in this encounter Miscellaneous Notes Miscellaneous - Maninder Ochoa M.D. - 12/27/2013 12:49 PM CDT gloriabessy nicholsonantonio prempro Document Contains Addenda Addendum by LIZBET GUTIERREZ MD on 27 December 2013 13:07:01 CDT From: LIZBET GUTIERREZ MD To: MANINDER OCHOA MD; Sent: 12/27/2013 13:07:01 CDT Subject: RE: gloria nicholsonlund prempro I would restart in this case with the caveat that her BP needs to be controlled as well. If she's normotensive on meds then HRT would be a very reasonable approach. More than happy to see her back within the next few months for f/u. From: MANINDER OCHOA MD To: LIZBET GUTIERREZ MD; Sent: 12/27/2013 12:49:23 CDT Subject: gloria nicholsonlund prempro Dleta, You sent this 58 yr young lady to me for establishment of primary care. She was on Prempro but it had recently been stopped. She had hot flashes, etc. when I saw her so I increased her Effexor. That hasn't helped the situation and she is requesting the Prempro be restarted. She's perimenopausal. Can I restart this or should I take some other approach? Thanks. Servando Source: [facility] POWERCHART Document Id: [id number] Electronically signed by [facility], [facility] Pantograph Setter [id number] at 08/10/2016 6:51 PM CDT Miscellaneous - Conversion, Historical Provider Ser - 12/27/2013 11:17 AM CDT med request - prempro Document Contains Addenda Addendum by MANINDER OCHOA MD on 27 December 2013 12:43:30 CDT From: MANINDER OCHOA MD Sent: 12/27/2013 12:43:29 CDT Subject: RE:med request - prempro Approved Order:conjugated estrogens-medroxyPROGESTERone (Prempro 0.3 mg-1.5 mg oral tablet) 1 tab(s) PO Daily Qty: 30 tab(s) Refills: 0 Substitutions Allowed Route To Pharmacy - [id number] Signed by MANINDER OCHOA MD 12/27/2013 12:43:20 From: JOSEP MOFFETT RN ([facility] Nurse) To: MANINDER OCHOA MD; Sent: 12/27/2013 11:17:26 CDT Subject: med request - prempro On hold pending signature Order:conjugated estrogens-medroxyPROGESTERone (Prempro 0.3 mg-1.5 mg oral tablet) 1 tab(s) PO Daily Qty: 30 tab(s) Refills: 0 Substitutions Allowed Route To Pharmacy - [id number] Caller is: ( ) Patient ( ) Mother ( ) Father ( ) Spouse ( ) Daughter ( ) Son ( x ) Pharmacy ( ) Other: Provider: [place] [facility]: [facility] in [place] Name of Medications Needing Refill:Prempro Last Refill Date:not on med list Additional Information:Saw pt in October, dictation considered restarting prempro after increasing effexor, but was not ordered. Last / Future Appointment:Pharmacy requesting refill - this is 3rd request. 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 Dr Ochoa would like patient to have HeartScan done. Patient is to call [phone] to schedule this. Addendum by JOSEP MOFFETT RN on 16 November 2013 09:14:47 CDT From: JOSEP MOFFETT RN ([facility] Nurse) To: CITLALI GURROLA; Sent: 11/16/2013 09:14:47 CDT Subject: FW: MANINDER OCHOA Addendum by WILD MCGRATH RN on 15 November 2013 16:43:22 CDT [facility] From: BROOKS BOWSER To: [facility] Medicine Nurse; Cc: [facility]; Sent: 11/15/2013 10:58:55 CDT Subject: MANINDER OCHOA If you need a prescription refill please call your pharmacy. Please allow 3 business days for processing. Call Center Template: ?? May we leave a message for you on this phone? Yes. ?? How soon do you need a call back? ?? What can I help you with today? Still waiting for some blood test results. You were possibly going to give her cholesterol medication. Dr Ochoa was going to schedule some type of heart test and the patient has an insurance situation her works for [employer] so she would like to get this done soon. Please give the patient a call. ?? If Medication Refill: o What is the medication? o What pharmacy do you use? o Have you contacted your pharmacy regarding this request? I will send this information to the appropriate staff member who will look into your concern. If thenurse needs to talk to you he or she will call you back within two hours. Thank you for calling [facility]. n Source: [facility] POWERCHART Document Id: [id number] Miscellaneous - Maninedr Ochoa M.D. - 11/05/2013 1:12 PM CDT Results Notification Document Contains Addenda Addendum by EMPERATRIZ KATZ LPN on 05 November 2013 15:10:24 CDT pt notified and questions answered about medications to pharmacy Addendum by MANINDER OCHOA MD on 05 November 2013 14:47:50 CDT From: MANINDER OCHOA MD To: EMPERATRIZ KATZ LPN; Sent: 11/05/2013 14:47:50 CDT Show up: 11/05/2013 14:45:00 CDT Subject: RE: Results Notification I have not yet put everything together on my plan of care for her. I need to review the old records and decide if I want her undergo a heart scan befre starting a statin. We'll let her know when I decide how to proceed Addendum by EMPERATRIZ KATZ LPN on 05 November 2013 13:34:24 CDT From: EMPERATRIZ KATZ LPN To: MANINDER OCHOA MD; Sent: 11/05/2013 13:34:24 CDT Show up: 11/05/2013 13:32:00 CDT Subject: RE: Results Notification notified patient of results, pt stated you mentioned putting her on a cholesterol med please advise. From: MANINDER OCHOA MD Sent: 11/05/2013 13:12:55 CDT ! Show up: 11/05/2013 13:12:55 CDT Subject: Results Notification Actions: Notify patient-refer to General Message Reminder Comments: A1c, liver enzyme, kidney tests, lytes all OK. sugar again somewhat elevated, but stable and not in teja diabetes range. Same meds at same doses Results: Date Result Name Ind Value Ref Range 11/05/2013 10:48 Sodium Lvl 137 mmol/L (135 - 145) 11/05/2013 10:48 Potassium Lvl 4.2 mmol/L (3.5 - 5.1) 11/05/2013 10:48 Chloride 100 mmol/L (98 - 107) 11/05/2013 10:48 CO2 26 mmol/L (22 - 29) 11/05/2013 10:48 AGAP 11 mmol/L (7 - 15) 11/05/2013 10:48 Glucose Lvl 115 mg/dL (70 - 140) 11/05/2013 10:48 Creatinine 0.6 mg/dL (0.6 - 1.1) 11/05/2013 10:48 EGFR (MDRD) >60.0 mL/min/SA (>=60.0 - ) 11/05/2013 10:48 EGFR (MDRD) >60.0 mL/min/SA (>=60.0 - ) 11/05/2013 10:48 BUN 14 mg/dL (6 - 24) 11/05/2013 10:48 Calcium Lvl 9.6 mg/dL (8.6 - 10.3) 11/05/2013 10:48 ALT 23 U/L (0 - 33) 11/05/2013 10:48 Hgb A1c (H) 5.8 % A1C ( - <=5.6) Source: [facility] POWERCHART Document Id: [id number] Electronically signed by Conversion, [facility] Pantograph Setter [id number] at 08/10/2016 6:51 PM CDT Miscellaneous - Maninder Ochoa M.D. - 11/05/2013 12:56 PM CDT Results Notification Document Contains Addenda Addendum by TING HAYNES on 05 November 2013 14:00:15 CDT pt informed From: MANINDER OCHOA MD Sent: 11/05/2013 12:56:47 CDT ! Show up: 11/05/2013 12:56:47 CDT Subject: Results Notification Actions: Notify patient-refer to General Message Reminder Comments: hgb, wbc, platelets OK. No previous for comparison. Await other results. Results: Date Result Name Value Ref Range 11/05/2013 10:48 Hgb 12.3 g/dL (12.0 - 15.5) 11/05/2013 10:48 Hct 37.6 % (34.9 - 44.5) 11/05/2013 10:48 WBC 6.9 x10(9)/L (3.5 - 10.5) 11/05/2013 10:48 RBC 4.05 x10(12)/L (3.90 - 5.03) 11/05/2013 10:48 MCV 92.8 fL (81.6 - 98.3) 11/05/2013 10:48 RDW 13.0 % (11.9 - 15.5) 11/05/2013 10:48 Platelet 284 x10(9)/L (150 - 450) Source: [facility] POWERCHART Document Id: [id number] Miscellaneous - Maninder Ochoa M.D. - 11/05/2013 10:46 AM CDT Ambulatory Patient Summary [address] [id number] Visit Information Name: GLORIA GARCIA [facility] Number: [id number] Current Date: 11/05/2013 10:46:58 Physicians Attending Provider: MANINDER OCHOA MD Primary [...] for Patient Medication Changes/Routing emollients, topical (Tetrix Cream) once a day naproxen (naproxen 500 mg oral tablet) 1 Tablet(s), Oral, two times a day with meals triamterene-hydrochlorothiazide (triamterene-hydrochlorothiazide 37.5 mg-25 mg oral tablet) 1 Tablet(s), Oral, every week This is a CHANGE venlafaxine (Effexor XR 150 mg oral capsule, extended release) 1 cap, Oral, once a day This is a CHANGE [address] [place] [id number] Stop Taking the Following Medications: Medication list as of 11-05-13 10:46 Attention: If you have any medications at [...] Electronically Signed By: MANINDER OCHOA MD Signed On:05-NOV-2013 10:46:48 Your Allergies & Intolerances Substance Reaction Symptoms Category Comments No Known Allergies Your Problem List Problem Status Onset Comments Exam Gynecological Normal Active Headache (JARA) NOS Active Obesity NOS Active Anxiety NOS Active Hormone Therapy Status Active Hypertension (HTN) Chronic Active Your Upcoming Appointments Date Time Location Reason Provider No Appointments found Attention: Contact your local Clinic if further appointment detail needed. Your Goals/Additional instructions: Source: [facility] POWERCHART Document Id: [id number] Miscellaneous - Maninder Ochoa M.D. - 11/05/2013 10:46 AM CDT Ambulatory Discharge Medication List [address] [id number] Visit Information Name: GLORIA GARCIA [facility] Number: [id number] Visit Date: 11/05/2013 10:46:57 Attending Provider: MANINDER OCHOA MD Primary Care [...] for Patient Medication Changes/Routing emollients, topical (Tetrix Cream) once a day naproxen (naproxen 500 mg oral tablet) 1 Tablet(s), Oral, two times a day with meals triamterene-hydrochlorothiazide (triamterene-hydrochlorothiazide 37.5 mg-25 mg oral tablet) 1 Tablet(s), Oral, every week This is a CHANGE venlafaxine (Effexor XR 150 mg oral capsule, extended release) 1 cap, Oral, once a day This is a CHANGE Routed to [address] [id number] Stop Taking the Following Medications: Medication list as of 11-05-13 10:46 Attention: If you have any medications at [...] Electronically Signed By: MANINDER OCHOA MD Signed On:05-NOV-2013 10:46:48 Additional Information: Source: [facility] POWERCHART Document Id: [id number] Miscellaneous - Ting Haynes, RAaronMAaronAAaron - 11/05/2013 9:19 AM CDT Adult Guest Services Lead Intake/History Adult Guest Services Lead Intake/History Entered On: 11/05/2013 9:21 CDT Performed On: 11/05/2013 9:19 CDT by TING HAYNES Intake Chief Complaint : Discuss HTN and hormone replacement therapy. Peripheral Pulse Rate : 78 /min Systolic Blood Pressure : 166 mmHg (>HHI) Diastolic Blood Pressure : 90 mmHg (HI) NIBP Mean : 115 mmHg SpO2 : 97 % Oxygen Therapy : Room air Height : 177.5 cm(Converted to: 5 ft 10 inch(es), 70 inch(es)) Actual Weight : 109.5 kg(Converted to: 241 lb 6 oz) Dosing Weight Clinic : 109.5 kg Clinic BSA : 2.32 Body Mass Index : 34.76 kg/m2 TING HAYNES - 11/05/2013 9:19 CDT General Info Languages : Upper Sorbian Is Patient Female and 13-50 no hysterectomy : No TING HAYNES - 11/05/2013 9:19 CDT Subjective Pain Symptoms : No TING HAYNES - 11/05/2013 9:19 CDT Dependent Habits Tobacco Use/Currently Using : No Smoking Status : Never smoker TING HAYNES - 11/05/2013 9:19 CDT Tobacco Use Grid Last Use : never TING HAYNES - 11/05/2013 9:19 CDT Caffeine Use Grid Caffeine Use : Current Type : Coffee Frequency : Daily Amount : couple cups daily TING HAYNES - 11/05/2013 9:19 CDT Source: [employer] Document Id: [id number] CDT!31 documented in this encounter Plan of Treatment Not on filedocumented as of this encounter Procedures Procedure Name Priority Date/Time Associated Comments Diagnosis CBC WITHOUT Routine 11/05/2013 10:48 Results for this DIFFERENTIAL, B AM CDT procedure ar e in the results section. ALANINE AMINOTRANSFERASE Routine 11/05/2013 10:48 Results for this (ALT), S/P AM CDT procedure are i n the results section. HEMOGLOBIN A1C, B Routine 11/05/2013 10:48 Result s for this AM CDT procedure are i n the results section. BASIC METABOLIC PANEL, Routine 11/05/2013 10:48 R esults for this S/P AM CDT procedure are i n the results section. documented in this encounter Results CBC without Differential (11/05/2013 10:48 AM CDT) P athologist Signature Leukocytes 6.9 3.5 - 10.5 POWERCHART X109L Erythrocytes 4.05 3.90 - 5.03 POWERCHART K5464G Hemoglobin 12.3 12.0 - 15.5 POWERCHART GDL Hematocrit 37.6 34.9 - 44.5 POWERCHART MCV 92.8 81.6 - 98.3 POWERCHART FL HX RDW 13.0 11.9 - 15.5 POWERCHART Platelet Count 284 150 - 450 POWERCHART X109L Specimen (Source) Anatomical Collection Method Collection Time Re ceived Time Location / / Volume Laterality Blood 11/05/2013 10:48 AM CDT Maninder Ochoa M.D. LAB BLOOD ADD-ON Performing Organization Address City/State/ZIP Code Phon e Number POWERCHART (ABNORMAL) Hemoglobin A1c (11/05/2013 10:48 AM CDT) P athologist Signature Hemoglobin A1c, 5.8 (H) <=5.6 A1C POWERCHART B Specimen (Source) Anatomical Collection Method Collection Time Re ceived Time Location / / Volume Laterality Blood 11/05/2013 10:48 AM CDT Maninder Ochoa M.D. LAB BLOOD ADD-ON Performing Organization Address City/[facility]/ZIP Code Phon e Number POWERCHART ALT (Alanine Aminotransferase) (11/05/2013 10:48 AM CDT) athologist Signature Alanine 23 0 - 33 UL POWERCHART Amniotransferas e, LD Specimen (Source) Anatomical Collection Method Collection Time Re ceived Time Location / / Volume Laterality Blood 11/05/2013 10:48 AM CDT Maninder Ochoa M.D. LAB BLOOD ADD-ON Performing Organization Address City/[facility]/ZIP Code Phon e Number POWERCHART BMP (Basic Metabolic Panel) (11/05/2013 10:48 AM CDT) P athologist Signature Sodium, S 137 135 - 145 POWERCHART MMOLL Potassium, S 4.2 3.5 - 5.1 POWERCHART MMOLL Chloride, S 100 98 - 107 POWERCHART MMOLL CO2 Total 26 22 - 29 POWERCHART MMOLL BUN (Blood Urea 14 6 - 24 MGDL POWERCHART Nitrogen), S Creatinine 0.6 0.6 - 1.1 POWERCHART MGDL Calcium, Total, 9.6 8.6 - 10.3 POWERCHART S MGDL Anion Gap 11 7 - 15 MMOLL POWERCHART HXeGFR (MDRD) >60.0 >=60.0 POWERCHART MLMINSA eGFR >60.0 >=60.0 POWERCHART Black/ MLMINSA Angolan Glucose 115 70 - 140 POWERCHART MGDL Specimen (Source) Anatomical Collection Method Collection Time Re ceived Time Location / / Volume Laterality Blood 11/05/2013 10:48 AM CDT Maninder Ochoa M.D. LAB BLOOD ADD-ON Performing Organization Address City/State/ZIP Code Phon e Number POWERCHART documented in this encounter Visit Diagnoses Not on filedocumented in this encounter
--- OUTSIDE RECORDS SUMMARY | 2021-12-03 11:09 | XMS_ITS | Encounter Summary ---
:1955 Author Organization [facility] Address [address] [place] [address] Care Team Providers Name Role Phone Unavailable Primary Care Provider Unavailable Encounter Details Date Type Department Care Team Description 03/30/2015 Hospital Encounter HX [facility] Maninder Isbell M.D. Social History Tobacco Use Types Packs/Day [...] - - Height 178 cm (5' 10.08) 03/30/2015 11:57 AM MAINTENANCE REPAIRER Body Mass Index - - documented in this encounter Miscellaneous Notes Miscellaneous - Ryan, Historical Provider Ser - 03/31/2015 8:08 AM MAINTENANCE REPAIRER Coding Summary-Paper Based CODING DATE: 03/31/2015 FINAL [facility] STATUS: * Discharged to Home or Self Care PAYOR: [facility] ADMIT DX: REASON FOR VISIT DX: FINAL DX: PRINCIPAL: M35.3 Polymyalgia rheumatica SECONDARY: PROCEDURES DOCTOR NAME DATE NOTE: The code number assigned matches the documented diagnosis and / or procedure in the patient's chart. However, the narrative phrase printed from the coding software may appear abbreviated, or result in slightly different terminology. Coded By: ARACELI ROSENBAUM Date Saved: 03/31/2015 08:08 am Source: [facility] POWERCHART Document Id: [id number] Miscellaneous - Maninder Ochoa M.D. - 03/31/2015 8:01 AM CST Results Notification Document Contains Addenda Addendum by CITLALI GURROLA on 31 March 2015 08:07:33 MAINTENANCE REPAIRER From: CITLALI GURROLA To: MANINDER OCHOA MD; Sent: 03/31/2015 08:07:33 MAINTENANCE REPAIRER Show up: 03/31/2015 08:07:00 MAINTENANCE REPAIRER Subject: RE: Results Notification The [facility] requested that these were done within a month of her appt. She is seeing them today. From: MANINDER OCHOA MD To: CITLALI GURROLA; Sent: 03/31/2015 08:01:24 MAINTENANCE REPAIRER ! Show up: 03/31/2015 08:01:24 MAINTENANCE REPAIRER Subject: Results Notification Actions: Notify patient-refer to General Message Reminder Comments: Not sure why these were done. Nothing really different than before. Nothing calling for any additional evaluation or change in mgmt. Did she see rheumatology at [facility]? Results: Date Result Name Ind Value Ref Range 03/30/2015 12:15 UA Color Dark yellow 03/30/2015 12:15 UA Clarity (*) Cloudy (Clear - ) 03/30/2015 12:15 UA Spec Grav 1.025 03/30/2015 12:15 UA pH 5.0 (<5.0 - ) 03/30/2015 12:15 UA Protein Trace mg/dL (Negative - ) 03/30/2015 12:15 UA Glucose Negative mg/dL (Negative - ) 03/30/2015 12:15 UA Ketones (*) Trace mg/dL (Negative - ) 03/30/2015 12:15 UA Bili (*) Small (Negative - ) 03/30/2015 12:15 UA Urobilinogen 0.2 mg/dL (0.2 - ) 03/30/2015 12:15 UA Blood Negative (Negative - ) 03/30/2015 12:15 UA Nitrite Negative (Negative - ) 03/30/2015 12:15 UA Leuk Est Negative (Negative - ) 03/30/2015 12:15 UR WBC Occ-3 /HPF (None Seen - ) 03/30/2015 12:15 UR RBC (*) 3-10 /HPF (None Seen - ) 03/30/2015 12:15 UR % Dysmorphic RBC <=25 % (<=25 - ) 03/30/2015 12:15 UR Hyaline Cast (*) 31-40 /LPF (None Seen - ) 03/30/2015 12:15 UR Squamous Epi Cells (*) 11-20 /HPF (None Seen - ) 03/30/2015 12:15 UR Bacteria (*) Present (None Seen - ) 03/30/2015 12:06 CRP (H) 11.5 mg/L ( - <=4.9) 03/30/2015 12:06 Hgb A1c (H) 6.3 % A1C ( - <=5.6) 03/30/2015 12:06 Hgb 12.7 g/dL (12.0 - 15.5) 03/30/2015 12:06 Hct 39.9 % (34.9 - 44.5) 03/30/2015 12:06 WBC 9.7 x10(9)/L (3.5 - 10.5) 03/30/2015 12:06 RBC 4.09 x10(12)/L (3.90 - 5.03) 03/30/2015 12:06 MCV 97.6 fL (81.6 - 98.3) 03/30/2015 12:06 RDW 13.2 % (11.9 - 15.5) 03/30/2015 12:06 Platelet 309 x10(9)/L (150 - 450) 03/30/2015 12:06 Neutro Absolute (H) 7.56 10(9)/L (1.70 - 7.00) 03/30/2015 12:06 Lymph Absolute 1.41 x10(9)/L (0.90 - 2.90) 03/30/2015 12:06 Reynolds Absolute 0.66 x10(9)/L (0.30 - 0.90) 03/30/2015 12:06 Eos Absolute (L) 0.04 x10(9)/L (0.05 - 0.50) 03/30/2015 12:06 Baso Absolute 0.02 x10(9)/L (0.00 - 0.30) 03/30/2015 12:06 Differential? Auto Source: [facility] POWERCHART Document Id: [id number] Electronically signed by Conversion, [facility] [employer] Script Writer [id number] at 08/07/2016 7:25 AM CDT documented in this encounter Plan of Treatment Not on filedocumented as of this encounter Procedures Procedure Name Priority Date/Time Associated Comments Diagnosis HXUR % DYSMORPHIC RBC Routine 03/30/2015 12:15 Re sults for this PM MAINTENANCE REPAIRER procedure are i n the results section. URINALYSIS WITH Routine 03/30/2015 12:15 Results for this MICROSCOPIC PM MAINTENANCE REPAIRER procedure are i n the results section. AUTOMATED Routine 03/30/2015 12:06 Results for this DIFFERENTIAL, B PM MAINTENANCE REPAIRER procedure ar e in the results section. CBC WITH Routine 03/30/2015 12:06 Results for this DIFFERENTIAL, B PM MAINTENANCE REPAIRER procedure ar e in the results section. C-REACTIVE PROTEIN Routine 03/30/2015 12:06 Resul ts for this (CRP), S/P PM MAINTENANCE REPAIRER procedure are i n the results section. HEMOGLOBIN A1C, B Routine 03/30/2015 12:06 Result s for this PM MAINTENANCE REPAIRER procedure are i n the results section. documented in this encounter Results HXUR % DYSMORPHIC RBC (03/30/2015 12:15 PM MAINTENANCE REPAIRER) athologist Signature Dysmorphic RBC <=25 <=25 POWERCHART Specimen Anatomical Collection Method Collection Time Receive d Time (Source) Location / / Volume Laterality Urine, First 03/30/2015 12:15 03/30/2015 Voided PM MAINTENANCE REPAIRER 12:15 PM MAINTENANCE REPAIRER Maninder Ochoa M.D. LAB HISTORICAL ORDERS Performing Organization Address City/State/ZIP Code Phon e Number POWERCHART (ABNORMAL) Urinalysis, Complete, Includes Microscopic (03/30/2015 12:15 PM MAINTENANCE REPAIRER) [facility] gist Method Time Signature HXUr Color Dark yellow POWERCHART Clarity Cloudy (A) Clear POWERCHART Glucose Negative Negative POWERCHART MGDL HXBILIRUBIN Small (A) Negative POWERCHART Ketones, QL(U) Trace (A) Negative POWERCHART MGDL Specific 1.025 POWERCHART [place], POCT, U HXBLOOD Negative Negative POWERCHART pH, POCT, Urine 5.0 <5.0 POWERCHART Protein, Ur, Dip Trace Negative POWERCHART MGDL Urobilinogen 0.2 0.2 MGDL POWERCHART HXNITRITE Negative Negative POWERCHART Leukocyte Negative Negative POWERCHART Esterase HXUR WBC. Occ-3 None Seen POWERCHART HPF HXUR RBC. 3-10 (A) None Seen POWERCHART HPF HXUR Bacteria, Present (A) None Seen POWERCHART Squamous 11-20 (A) None Seen POWERCHART Epithelial HPF Casts, Hyaline 31-40 (A) None Seen POWERCHART LPF Specimen (Source) Anatomical Collection Method Collection Time Re ceived Time Location / / Volume Laterality Urine, First 03/30/2015 12:15 Voided PM MAINTENANCE REPAIRER Maninder Ochoa M.D. LAB URINE ORDERABLES Performing Organization Address City/State/ZIP Code Phon e Number POWERCHART (ABNORMAL) Automated Differential (03/30/2015 12:06 PM MAINTENANCE REPAIRER) [facility] gist Method Time Signature Absolute 7.56 (H) 1.70 - POWERCHART Neutrophils 7.00 109L Lymphocytes 1.41 0.90 - POWERCHART 2.90 X109L Monocytes 0.66 0.30 - POWERCHART 0.90 X109L Eosinophils 0.04 (L) 0.05 - POWERCHART 0.50 X109L Absolute 0.02 0.00 - POWERCHART Basophil 0.30 X109L Specimen Anatomical Collection Method Collection Time Receive d Time (Source) Location / / Volume Laterality Blood 03/30/2015 12:06 03/30/2015 PM MAINTENANCE REPAIRER 12:06 PM MAINTENANCE REPAIRER Maninder Ochoa M.D. LAB BLOOD ADD-ON Performing Organization Address City/State/ZIP Code Phon e Number POWERCHART CBC with Differential (03/30/2015 12:06 PM MAINTENANCE REPAIRER) P athologist Signature Leukocytes 9.7 3.5 - 10.5 POWERCHART X109L Erythrocytes 4.09 3.90 - POWERCHART 5.03 D2507G Hemoglobin 12.7 12.0 - POWERCHART 15.5 GDL Hematocrit 39.9 34.9 - POWERCHART 44.5 MCV 97.6 81.6 - POWERCHART 98.3 FL HX RDW 13.2 11.9 - POWERCHART 15.5 Platelet Count 309 150 - 450 POWERCHART X109L HXDifferential? Auto POWERCHART Specimen (Source) Anatomical Collection Method Collection Time Re ceived Time Location / / Volume Laterality Blood 03/30/2015 12:06 PM MAINTENANCE REPAIRER Maninder Ochoa M.D. LAB BLOOD ADD-ON Performing Organization Address City/State/ZIP Code Phon e Number POWERCHART (ABNORMAL) CRP (C-Reactive Protein) (03/30/2015 12:06 PM MAINTENANCE REPAIRER) P athologist Signature C-Reactive 11.5 (H) <=4.9 MGL POWERCHART Protein (CRP), S Specimen (Source) Anatomical Collection Method Collection Time Re ceived Time Location / / Volume Laterality Blood 03/30/2015 12:06 PM MAINTENANCE REPAIRER Maninder Ochoa M.D. LAB BLOOD ADD-ON Performing Organization Address City/[facility]/ZIP Code Phon e Number POWERCHART (ABNORMAL) Hemoglobin A1c (03/30/2015 12:06 PM MAINTENANCE REPAIRER) P athologist Signature Hemoglobin A1c, 6.3 (H) <=5.6 A1C POWERCHART B Specimen (Source) Anatomical Collection Method Collection Time Re ceived Time Location / / Volume Laterality Blood 03/30/2015 12:06 PM MAINTENANCE REPAIRER Maninder Ochoa M.D. LAB BLOOD ADD-ON Performing Organization Address City/State/ZIP Code Phon e Number POWERCHART documented in this encounter Visit Diagnoses Not on filedocumented in this encounter Additional Health Concerns Assessment Noted Time PHQ-9 Depression Total Score: 2 07/15/2014 11:54 AM CD T documented as of this encounter
--- OUTSIDE RECORDS SUMMARY | 2021-12-03 11:09 | XMS_ITS | Encounter Summary ---
:1955 Author Organization [facility] Address [address] [place] [address] Care Team Providers Name Role Phone Unavailable Primary Care Provider Unavailable Encounter Details Date Type Department Care Team Description 07/29/2014 Hospital Encounter HX [facility] Maninder Ochoa M.D. Social History [...] - - Height 178 cm (5' 10.08) 07/29/2014 9:51 AM CDT Body Mass Index - - documented in this encounter Miscellaneous Notes Miscellaneous - Maninder Ochoa M.D. - 07/29/2014 8:38 PM CDT Results Notification Document Contains Addenda Addendum by MANINDER OCHOA MD on 30 Jul 2014 18:45:22 CDT From: MANINDER OCHOA MD To: CITLALI GURROLA; Sent: 07/30/2014 18:45:22 CDT Show up: 07/30/2014 18:45:00 CDT Subject: RE: Results Notification good Addendum by CITLALI GURROLA on 30 Jul 2014 13:00:36 CDT From: CITLALI GURROLA To: MANINDER OCHOA MD; Sent: 07/30/2014 13:00:36 CDT Show up: 07/30/2014 13:00:00 CDT Subject: RE: Results Notification Patient notified of results. She states that she is feeling somewhat better. She can tell the difference with the Prednisone. She will follow up in 2 weeks. Addendum by CITLALI GURROLA on 30 Jul 2014 09:50:32 CDT Left message to call back From: MANINDER OCHOA MD To: CITLALI GURROLA; Sent: 07/29/2014 20:38:19 CDT ! Show up: 07/29/2014 20:38:19 CDT Subject: Results Notification Actions: Notify patient-refer to General Message Reminder Comments: ESR significantly improved after 2 wks of Prednisone. How's she doing? Regardless, she should continue Prednisone 5 mg bid. Recheck ESR 2 wks at next appt Results: Date Result Name Ind Value Ref Range 07/29/2014 10:10 Sed Rate (H) 31 mm/hr (0 - 29) Source: [facility] POWERCHART Document Id: [id number] Electronically signed by Conversion, [facility] Photovoltaic Power Systems Engineer [id number] at 08/09/2016 7:59 AM CDT documented in this encounter Plan of Treatment Not on filedocumented as of this encounter Procedures Procedure Name Priority Date/Time Associated Comments Diagnosis SEDIMENTATION RATE, B Routine 07/29/2014 10:10 Re sults for this AM CDT procedure are i n the results section. documented in this encounter Results (ABNORMAL) Sedimentation Rate (07/29/2014 10:10 AM CDT) [employer] gist Method Time Signature Sedimentation 31 (H) 0 - 29 POWERCHART Rate, B MMHR Specimen (Source) Anatomical Collection Method Collection Time Re ceived Time Location / / Volume Laterality Blood 07/29/2014 10:10 AM CDT Maninder Ochoa M.D. LAB BLOOD ADD-ON Performing Organization Address City/State/ZIP Code Phon e Number POWERCHART documented in this encounter Visit Diagnoses Not on filedocumented in this encounter Additional Health Concerns Assessment Noted Time PHQ-9 Depression Total Score: 2 07/15/2014 11:54 AM CD T documented as of this encounter
--- OUTSIDE RECORDS SUMMARY | 2021-12-03 11:09 | XMS_ITS | Encounter Summary ---
:1955 Author Organization [facility] Address [address] [place] [address] Care Team Providers Name Role Phone Unavailable Primary Care Provider Unavailable Encounter Details Date Type Department Care Team Description 10/15/2013 Hospital Encounter HX [facility] Jm Roe M.D. Social History Tobacco Use Types Packs/Day Years Used Date Smoking Tobacco: Never Assessed Sex Assigned at Date Recorded Not on file documented as of this encounter Last Filed Vital Signs Vital Sign Reading Time Taken Comments Blood Pressure 163/80 10/15/2013 8:27 AM CDT Pulse 76 10/15/2013 8:27 AM CDT Temperature - - Respiratory Rate - - Oxygen Saturation - - Inhaled Oxygen Concentration - - Weight 110 kg (241 lb 13.5 oz) 10/15/2013 8:27 AM CDT Height 177 cm (5' 9.69) 10/15/2013 8:27 AM CDT Body Mass Index 35.02 10/15/2013 8:27 AM CDT documented in this encounter H&P Notes Lizbet Gutierrez M.D. - 10/15/2013 8:17 AM CDT [id number] CHIEF COMPLAINT/REASON FOR VISIT Routine gynecologic exam. HISTORY OF PRESENT ILLNESS The patient is a 57-year-old female with no significant past medical history, who presents today fora routine gynecologic exam. She has noticed increased headaches over the past 2 weeks, and thinks this may be due to her chronic neck pain, that she is seeing a specialist for down at [facility]. She describes the headache as bilateral, and fairly persistent throughout the day. She denies nausea, vomiting, or photophobia. Additionally, the patient notes that she went off her hormone replacement therapy last week, with no resultant symptoms. She has slight fatigue every morning, but otherwise is doing well. SYSTEMS REVIEW Is negative for fevers, heat or cold intolerance, chest pain, shortness of breath, abdominal pain, dysuria, constipation, diarrhea, muscle and joint pain, muscle aches, or any other acute concerns. PAST MEDICAL/SURGICAL HISTORY 1. Hypertension. 2. Impaired glucose tolerance. PAST SURGICAL HISTORY: Left meniscal repair in 2006. PAST OBSTETRICAL HISTORY: Normal vaginal delivery x3. PAST GYNECOLOGIC HISTORY: Menarche at age 16. The patient has no history of abnormal Pap smears or STDs. She is postmenopausal with her last menstrual cycle 6 to 8 years ago. MEDICATIONS 1. Effexor 75 mg by mouth daily. 2. Naprosyn 500 mg by mouth twice a day. 3. Hydrochlorothiazide as needed. ALLERGIES No known drug allergies. SOCIAL HISTORY The patient does not smoke. 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 She is happily , although her did lose his job 2 weeks ago. FAMILY HISTORY Negative for breast, colon, uterine, or ovarian cancer. PHYSICAL EXAMINATION VITAL SIGNS: Height 177 cm, weight 109.7 kg, BMI 35, blood pressure 163/80, heart rate 76, respiratory rate 16. HEENT: No evidence of thyromegaly. Oropharynx is clear with no lymphadenopathy. Pupils are equal andreactive to light and accommodation. CARDIOVASCULAR: Regular rate and rhythm. No murmurs. LUNGS: Clear to auscultation bilaterally. BREASTS: Soft. No palpable masses, discharge, tenderness, or skin changes bilaterally. No lymphadenopathy. ABDOMEN: Soft, nontender, nondistended. EXTREMITIES: Without edema. GENITOURINARY: Normal external genitalia. A speculum shows a normal cervix and vagina. Pap smear wasobtained without difficulty. Vaginal exam confirms a normal size uterus with no adnexal masses or tenderness bilaterally. LABS: Pap smear, fasting cholesterol, and glucose are pending. ASSESSMENT: A 57-year-old female presents today for routine gynecologic exam. 1. Healthcare maintenance. We will follow up on Pap smear and cholesterol results. The patient will be due for a colonoscopy in 2015, and has a mammogram scheduled for later on today. We otherwise discussed healthy living habits including diet, exercise, and calcium intake. 2. Anxiety. This is well controlled on her current dose of Effexor. The patient has noticed a slightincrease in this over the past 2 weeks, but attributes that to her losing his job. We will watch symptoms closely over the next month, and I told her that if things do not improve as expected we may consider increasing her dose. 3. Headaches. Likely tension in character. These resolve with ibuprofen and may also be situationally based on her 's recent job loss. We will defer to her physicians down in [facility] for long-term treatment. 4. Obesity. We discussed the risk factors, including hypertension, heart disease, and osteoarthritis. 5. Hormone replacement therapy. The patient has been asymptomatic for the past week since she has stopped this medicine on her own. We reviewed the side effects of decreased estrogen dosing including hot flashes, vaginal dryness, or combinations thereof. She does feel comfortable following up by phone. 6. Hypertension. We will refer to Dr. Ochoa for treatment. ADMINISTRATIVE BILLING An extra 10 minutes were spent discussing the patient's additional medical issues. Jm Gutierrez M.D./pos Electronically Signed By: LIZBET GUTIERREZ MD On: 10/16/2013 07:36 AM Source: [facility] MHSDOLBEYNONRADSYS Document Id: [id number] documented in this encounter Miscellaneous Notes Miscellaneous - Vanessa Levine RTrino - 10/14/2014 4:10 PM CDT Custom Result Letter 14 October 2014 GLORIA BONILLA [id number] [facility] [id number] Dear GLORIA BONILLA, [facility]. Our records indicate that you are due for a physical examination after October 15, 2014. To schedule a physical call our office at [phone] at your earliest convenience. Sincerely, VANESSA LEVINE Electronic Signature Electronically Signed By: VANESSA LEVINE RN On: 14 October 2014 This document has images extracted. Source: [facility] POWERCHART Document Id: [id number] Electronically signed by Ryan [facility] Captain [employer] [id number] at 08/10/2016 12:12 PM CDT Miscellaneous - Gloria Henry - 11/05/2013 11:57 AM CDT evangelist/ nurse- pt returning call Document Contains Addenda Addendum by MELANI HART on 05 November 2013 13:21:25 CDT pt informed Addendum by AZAR OCHOA MD on 05 November 2013 13:04:29 CDT From: AZAR OCHOA MD To: MELANI HART; Sent: 11/05/2013 13:04:29 CDT Subject: RE: evangelist/ nurse- pt returning call I went ahead and ordered it the best I could. I didn't know the tubes were 226.8 gm. Hopefullly the pharmacy will just take care of this. If not, somebody needs to let me know Addendum by MELANI HART on 05 November 2013 12:11:17 CDT From: MELANI HART To: AZAR OCHOA MD; Sent: 11/05/2013 12:11:17 CDT Subject: FW: evangelist/ nurse- pt returning call Addendum by MELANI HART on 05 November 2013 12:11:06 CDT Spoke with pt and she does not have an extra tube around to look at the strength or directions. Spoke with pharmacy and he states that if we are going to call it in that it comes in a box, its 226.8 grams, and to apply nightly. Does cost $188 and pt is aware of cost and willing to pay. Addendum by VANESSA CALIX RN on 05 November 2013 12:02:12 CDT From: VANESSA CALIX RN ([facility] Medicine Nurse) To: MELANI HART; Sent: 11/05/2013 12:02:12 CDT Subject: FW: evangelist/ nurse- pt returning call Did you call patient, I didn't see anything noted. From: GLORIA HENRY ([facility]) To: [facility] Family Medicine Nurse; Cc: [facility]; Sent: 11/05/2013 11:57:07 CDT Subject: evangelist/ nurse- pt returning call Call Center Template: ?? May we leave a message for you on this phone? ?? How soon do you need a call back? ?? What can I help you with today? Pt returning call to Dr Ochoa' nurse. ?? If Medication Refill: o What is the medication? o What pharmacy do you use? o Have you contacted your pharmacy regarding this request? Source: [place] [facility] Document Id: [id number] Electronically signed by Conversion, [employer] Captain [employer] [id number] at 08/10/2016 12:12 PM CDT Lizbet Miller M.D. - 10/25/2013 6:23 PM CDT Results Notification Document Contains Addenda Addendum by KHRIS MARTINEZ LPN on 29 October 2013 09:31:30 CDT results mailed to pt From: LIZBET GUTIERREZ MD To: [facility] Nurse; Sent: 10/25/2013 18:23:55 CDT Show up: 10/25/2013 18:24:00 CDT Subject: Results Notification Actions: Notify patient-refer to General Message f/u Pap 3yrs. Results: Date Result Type Result Name 10/24/2013 9:16 Document - DOC TEXTILES AND CLOTHING TEACHER Cytology [facility] Document Id: [id number] Electronically signed by Conversion, [facility] Captain [employer] [id number] at 08/10/2016 12:12 PM CDT Lizbet Miller M.D. - 10/18/2013 11:26 AM CDT Results Notification Document Contains Addenda Addendum by JOSIE ORTIZ RN on 26 October 2013 17:43:33 CDT Pt notified on 10/24/13 of plan. Addendum by VANESSA LEVINE RN on 20 October 2013 13:55:22 CDT LMTCB From: LIZBET GUTIERREZ MD To: [facility] Nurse; Sent: 10/18/2013 11:26:20 CDT Show up: 10/18/2013 11:26:00 CDT Subject: Results Notification Actions: Notify patient-refer to General Message Pt. will need to see Dr. Ochoa for elevated fating glucose, HTN, and high cholesterol. Results: Date Result Name Ind Value Ref Range 10/15/2013 09:35 Glucose Fasting (H) 116 mg/dL (70 - 99) 10/15/2013 09:35 Cholesterol (H) 225 mg/dL ( - <=199) 10/15/2013 09:35 Trig (H) 165 mg/dL ( - <=149) 10/15/2013 09:35 HDL 62 mg/dL (>=40 - ) 10/15/2013 09:35 LDL Calculated (H) 130 mg/dL ( - <=99) 10/15/2013 09:35 TSH 1.6 mIU/L (0.3 - 4.2) Source: [facility] POWERCHART Document Id: [id number] Electronically signed by Ryan [facility] Captain [employer] [id number] at 08/10/2016 12:12 PM CDT Miscellaneous - Josie Ortiz, R.N. - 10/15/2013 10:00 AM CDT VINCE-7 VINCE-7 Entered On: 10/15/2013 13:44 CDT Performed On: 10/15/2013 10:00 CDT by JOSIE ORTIZ RN GAD7 GAD7 Feeling nervous : More than half the days GAD7 Not able to control worry : More than half the days GAD7 Worrying too much : Nearly every day GAD7 Trouble relaxing : Not at all GAD7 Being so restless : Not at all GAD7 Becoming easily annoyed : Several days GAD7 Feeling afraid : Not at all GAD7 Total Score : 8 JOSIE ORTIZ RN - 10/15/2013 13:43 CDT Source: [facility] POWERCHART Document Id: [id number] CDT!10 Miscellaneous - Lizbet Gutierrez M.D. - 10/15/2013 8:53 AM CDT Ambulatory Patient Summary [facility] [address] [place], [place] [id number] Visit Information Name: GLORIA BONILLA [facility] Number: [id number] Current Date: 10/15/2013 08:53:41 Physicians Attending Provider: LIZBET GUTIERREZ MD Primary Care Provider: PCP, UNASSIGNED - GLORIA VYAS has been given the following list of [...] Take Indications/Special Instructions/Comments/Notes for Patient Medication Changes/Routing naproxen (naproxen 500 mg oral tablet) 1 Tablet(s), Oral, two times a day with meals triamterene-hydrochlorothiazide (triamterene-hydrochlorothiazide 37.5 mg-25 mg oral tablet) 1 Tablet(s), Oral, once a day venlafaxine (Effexor XR 75 mg oral capsule, extended release) 1 cap, Oral, once a day Please schedule follow up med check before next refill Stop Taking the Following Medications: conjugated estrogens-medroxyPROGESTERone (Prempro 0.3 mg-1.5 mg oral tablet) hydrocortisone topical (Anusol HC-1 rectal ointment w/applicator) Medication list as of 10-15-13 08:53 Attention: If you have any medications at home that are not on this list, DO NOT take them until youcontact your provider for clarification. Give a copy of your medication list to your primary care provider. Update your medication list any time medications or doses are changed and carry your medication list at all times in case of emergency. Electronically Signed By: LIZBET GUTIERREZ MD Signed On:15-OCT-2013 08:53:34 Your Allergies & Intolerances Substance Reaction Symptoms Category Comments No Known Allergies Your Problem List Problem Status Onset Comments No Problems found Your Upcoming Appointments Date Time Location Reason Provider 10/15/2013 13:30 MAQN Mammo ANNUAL SCREENING (DATE OF LAST MAMMO: 09/25/2012) - PT IS AWARE THAT MAMMO IS EARLY - INSURANCE OK TO PAY EARLY MAQN MA RM 1 Attention: Contact your local Clinic if further appointment detail needed. Your Goals/Additional instructions: Source: [facility] POWERCHART Document Id: [id number] Miscellaneous - Lizbet Gutierrez M.D. - 10/15/2013 8:53 AM CDT Ambulatory Discharge Medication List [facility] [address] [id number] Visit Information Name: GLORIA BONILLA [facility] Number: [id number] Visit Date: 10/15/2013 08:53:39 Attending Provider: LIZBET GUTIERREZ MD Primary Care Provider: PCP, UNASSIGNED - GLORIA VYAS has been given the following list of medications: Your Medications It is important to take your medications as directed. Use a pill box or chart to help remind you to take your medications. Please let your doctor or nurse know if you have problems taking your medications. Medication/Strength How to Take Indications/Special Instructions/Comments/Notes for Patient Medication Changes/Routing naproxen (naproxen 500 mg oral tablet) 1 Tablet(s), Oral, two times a day with meals triamterene-hydrochlorothiazide (triamterene-hydrochlorothiazide 37.5 mg-25 mg oral tablet) 1 Tablet(s), Oral, once a day venlafaxine (Effexor XR 75 mg oral capsule, extended release) 1 cap, Oral, once a day Please schedule follow up med check before next refill Stop Taking the Following Medications: conjugated estrogens-medroxyPROGESTERone (Prempro 0.3 mg-1.5 mg oral tablet) hydrocortisone topical (Anusol HC-1 rectal ointment w/applicator) Medication list as of 10-15-13 08:53 Attention: If you have any medications at home that are not on this list, DO NOT take them until youcontact your provider for clarification. Give a copy of your medication list to your primary care provider. Update your medication list any time medications or doses are changed and carry your medication list at all times in case of emergency. Electronically Signed By: LIZBET GUTIERREZ MD Signed On:15-OCT-2013 08:53:34 Additional Information: Source: [facility] POWERCHART Document Id: [id number] Miscellaneous - Josie Ortiz, R.N. - 10/15/2013 8:33 AM CDT Health Assessment Health Assessment Entered On: 10/15/2013 8:35 CDT Performed On: 10/15/2013 8:33 CDT by JOSIE ORTIZ RN Health Assessment Complete Health Assessment Complete or Modified : Annual Health Assessment Annual Health Assessment Completed : Yes JOSIE ORTIZ RN - 10/15/2013 8:33 CDT Nutrition Nutrition Risk Factors by History Adult : None JOSIE ORTIZ RN - 10/15/2013 8:33 CDT Functional Current Daily Living Assistance : None OJSIE ORTIZ RN - 10/15/2013 8:33 CDT Dependent Habits Tobacco Use/Currently Using : No Smoking Status : Never smoker JOSIE ORTIZ RN - 10/15/2013 8:33 CDT Tobacco Use Grid Last Use : never JOSIE ORTIZ RN - 10/15/2013 8:33 CDT Caffeine Use Grid Caffeine Use : Current Type : Coffee Frequency : Daily Amount : couple cups daily JOSIE ORTIZ RN - 10/15/2013 8:33 CDT Psychosocial Domestic Abuse Concerns : None Buddhism Preference : No Buddhism Affiliation JOSIE ORTIZ RN - 10/15/2013 8:33 CDT Advance Directive Advanced Directives : No JOSIE ORTIZ RN - 10/15/2013 8:33 CDT Educ Needs Learning Style Preference Adult Grid Patient : None Family : None JOSIE ORTIZ RN - 10/15/2013 8:33 CDT Source: [facility] POWERCHART Document Id: [id number] CDT!29 Miscellaneous - Josie Ortiz RTrino - 10/15/2013 8:27 AM CDT Adult Director Of Online Education Intake/History Adult Director Of Online Education Intake/History Entered On: 10/15/2013 8:33 CDT Performed On: 10/15/2013 8:27 CDT by JOSIE ORTIZ special services agent Chief Complaint : Pt is here today for annual exam and fasting for labs. Pt stopped Prempro last week. LMP Date : 6-8 yrs ago Ambulatory Intake Additional Information : 07/30/11 = negative = last pap all normal paps Peripheral Pulse Rate : 76 /min Systolic Blood Pressure : 163 mmHg (>HHI) Diastolic Blood Pressure : 80 mmHg NIBP Mean : 108 mmHg BP Location : Right upper extremity Blood Pressure Cuff Size : Large Height : 177 cm(Converted to: 5 ft 10 inch(es), 70 inch(es)) Actual Weight : 109.7 kg(Converted to: 241 lb 14 oz) Weight Source : Standing scale Dosing Weight Clinic : 109.7 kg Clinic BSA : 2.32 Body Mass Index : 35.02 kg/m2 JOSIE ORTIZ RN - 10/15/2013 8:27 CDT General Info Information Given By : Patient Preferred Communication Mode : Verbal Languages : Kosovan Is Patient Female and 13-50 no hysterectomy : No JOSIE ORTIZ RN - 10/15/2013 8:27 CDT Subjective Pain Symptoms : Yes JOSIE ORTIZ RN - 10/15/2013 8:27 CDT Pain Pain Assessment Grid Pain 1 Location : Other: arthritic pain Intensity : 6 JOSIE ORTIZ RN - 10/15/2013 8:27 CDT Dependent Habits Tobacco Use/Currently Using : No Smoking Status : Never smoker JOSIE ORTIZ RN - 10/15/2013 8:27 CDT Tobacco Use Grid Last Use : never JOSIE ORTIZ RN - 10/15/2013 8:27 CDT Alcohol Use : Yes JOSIE ORTIZ RN - 10/15/2013 8:27 CDT Caffeine Use Grid Caffeine Use : Current Type : Coffee Frequency : Daily Amount : couple cups daily JOSIE ORTIZ RN - 10/15/2013 8:27 CDT Source: [facility] [employer] Document Id: [id number] CDT!42 Miscellaneous - Josie Ortiz R.N. - 10/10/2013 2:56 PM CDT Venlafaxine med refill Document Contains Addenda Addendum by LIZBET GUTIERREZ MD on 10 October 2013 14:59:55 CDT Approved Order:venlafaxine (Effexor XR 75 mg oral capsule, extended release) 1 cap(s) PO Daily Please schedule follow up med check before next refill Qty: 90 cap(s) Refills: 0 Substitutions Allowed Route To Pharmacy - [facility] [id number] Signed by LIZBET GUTIERREZ MD 10/10/2013 14:59:48 From: JOSIE ORTIZ RN ([facility] Nurse) To: LIZBET GUTIERREZ MD; Sent: 10/10/2013 14:56:08 CDT Subject: Venlafaxine med refill On hold pending signature Order:venlafaxine (Effexor XR 75 mg oral capsule, extended release) 1 cap(s) PO Daily Please schedule follow up med check before next refill Qty: 90 cap(s) Refills: 0 Substitutions Allowed Route To [id number] Caller is: ( ) Patient ( ) Mother ( ) Father ( ) Spouse ( ) Daughter ( ) Son ( X ) Pharmacy ( ) Other: Provider: Brenda Pharmacy: [facility] SURVEY ASSOCIATE Name of Medications Needing Refill: Venlafaxine ER 75 mg i po daily Last Refill Date: 07/10/13 Additional Information: Last / Future Appointment: last office visit was 09/25/12. Unable to fill per RN protocol. 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 THYROID-STIMULATING Routine 10/15/2013 9:35 AM Re sults for this HORMONE-SENSITIVE CDT procedure are in (S-TSH) the results section. GLUCOSE, FASTING, Routine 10/15/2013 9:35 AM Resu lts for this S/P CDT procedure are i n the results section. PATHOLOGY TEXTILES AND CLOTHING TEACHER Routine 10/15/2013 12:00 AM Results for this CYTOLOGY CDT procedure are i n the results section. documented in this encounter Results (ABNORMAL) Glucose, Fasting (10/15/2013 9:35 AM CDT) athologist Signature Glucose, 116 (H) 70 - 99 POWERCHART Fasting, S MGDL Specimen (Source) Anatomical Collection Method Collection Time Re ceived Time Location / / Volume Laterality Blood 10/15/2013 9:35 AM CDT Jm Gutierrez M.D. LAB BLOOD NON ADD-ON Performing Organization Address City/State/ZIP Code Phon e Number POWERCHART (ABNORMAL) Lipid Panel (10/15/2013 9:35 AM CDT) athologist Signature Cholesterol, 225 (H) <=199 MGDL POWERCHART Total Comment: The National Cholesterol Education Progr am (NCEP) has set the following guidelines for Cholesterol in adults age 18 and up: Desirable < 200 mg/dL Borderline High 200-239 mg/dL High > or = 240 mg/dL The National Cholesterol Education Progr am (NCEP) has set the following guidelines for Cholesterol in children ages 2 to 17: Desirable < 170 mg/dL Borderline High 170-199 mg/dL High > or = 200 mg/dL HX HDL 62 >=40 MGDL POWERCHART Comment: The National Cholesterol Education Progr am (NCEP) has set the following guidelines for HDL in adults age 18 and up: Low < 40 mg/dL Normal 40-60 mg/dL High > 60 mg/dL The National Cholesterol Education Progr am (NCEP) has set the following guidelines for HDL in children ages 2 to 17: Low < 40 mg/dL Borderline Low 40-59 mg/dL Normal > or = 60 mg/dL Values > 60 mg/dL are considered a negat kim risk factor for coronary heart disease (CHD) and are considered protective. Values < 40 mg/dL correlate with increas ed risk for CHD. Triglycerides 165 (H) <=149 MGDL POWERCHART Comment: The National Cholesterol Education Progr am (NCEP) has set the following guidelines for Triglycerides in adults ages 18 and up: Normal <150 mg/dL Borderline 150-199 mg/dL High 200-499 mg/dL Very High > or = 500 mg/dL The National Cholesterol Education Progr am (NCEP) has set the following guidelines for Triglycerides in children ages 2 to 17. Normal <90 mg/dL Borderline 90-129 mg/dL High > or = 130 mg/dL Calculated LDL 130 (H) <=99 MGDL POWERCHART Comment: The National Cholesterol Education Progr am (NCEP) has set the following guidelines for LDL-C in adults age 18 and up: Optimal < 100 mg/dL* Near Optimal 100-129 mg/dL Borderline High 130-159 mg/dL High 160-189 mg/dL Very High > or = 190 mg/dL *In patients with a history of heart dis ease and/or diabetes an LDL-C goal of < 70 mg/dL should be considered. The National Cholesterol Education Progr am (NCEP) has set the following guidelines for LDL-C in children ages 2 to 17: Desirable < 110 mg/dL Borderline High 110-129 mg/dL High > or = 130 mg/dL Specimen (Source) Anatomical Collection Method Collection Time Re ceived Time Location / / Volume Laterality Blood 10/15/2013 9:35 AM CDT Authorizing Provider Result Christine Gutierrez M.D. LAB BLOOD ADD-ON Performing Organization Address City/State/ZIP Code Phon e Number POWERCHART Thyroid-Stimulating Hormone-Sensitive (s-TSH) (10/15/2013 9:35 AM CDT) P athologist Signature TSH 1.6 0.3 - 4.2 POWERCHART (Thyrotropin) MIUL Specimen (Source) Anatomical Collection Method Collection Time Re ceived Time Location / / Volume Laterality Blood 10/15/2013 9:35 AM CDT Jm Gutierrez M.D. LAB BLOOD ADD-ON Performing Organization Address City/State/ZIP Code Phon e Number POWERCHART Pathology TEXTILES AND CLOTHING TEACHER Cytology (10/15/2013 12:00 AM CDT) Specimen (Source) Anatomical Location Collection Method / Collectio n Time Received Time / Laterality Volume 10/15/2013 Narrative [facility] LAB - 10/24/2013 9:16 AM CDT [facility] [place] [address] [facility] [address] [place], [place] ??[id number] Patient Name: GLORIA BONILLA Patient ID #: SURVEY ASSOCIATE [id number] Collected: 10/15/2013 Address: City/State/Zip: [address] [place], [place] [address] Received: Reported: 10/16/2013 10/24/2013 Soc. Sec. #: ?/Age/Sex 1955 (Age: 57) ??F Physician(s): THERESE GUTIERREZ MD Copy To: ? [facility] ??[id number] [place] [address], ??[place] ??[id number] CYTOPATHOLOGY TEXTILES AND CLOTHING TEACHER REPORT FINAL CYTOLOGIC DIAGNOSIS Pap Smear - ThinPrep: NEGATIVE FOR INTRAEPITHELIAL LESION OR MALIGNANCY SPARSE TO NO ENDOCERVICAL COMPONENT PRES ENT. SATISFACTORY SPECIMEN FOR EVALUATION. Electronically Signed Out By mila/10/24/2013 WILLIAM SCHROEDER(ASCP) The Pap test is a screening procedure an d, as such, is subject to both false positive and false negative results as evidenced by published data. ??It is not a diagnostic test and results should be inter preted in the context of the patient's h istory and other clinical findings. ??Obtaining per iodic Pap tests may help to minimize the consequences of any false negatives that may occur. SPECIMEN(S) RECEIVED: Pap Smear - ThinPrep CLINICAL HISTORY: Date of Last PAP: 07-30-11 Date of Last Menstrual Period: 6-8 YRS AGO Other Clinical Conditions: HPV TYPING REQUESTED: IF ASCUS CAaron Gutierrez M.D. LAB PAP COPATH ORDERABLES Performing Organization Address City/State/ZIP Code Phon e Number [facility] documented in this encounter Visit Diagnoses Not on filedocumented in this encounter
--- OUTSIDE RECORDS SUMMARY | 2021-12-03 11:09 | XMS_ITS | Encounter Summary ---
:1955 Author Organization [facility] Address [address] [place] [address] Care Team Providers Name Role Phone Unavailable Primary Care Provider Unavailable Encounter Details Date Type Department Care Team Description 03/25/2014 Hospital Encounter HX [facility] INTERNMED Maddie Luna M.D. Social History Tobacco Use Types Packs/Day Years Used Date Smoking Tobacco: Never Assessed Sex Assigned at Date Recorded Not on file documented as of this encounter Last Filed Vital Signs Vital Sign Reading Time Taken Comments Blood Pressure 138/76 03/25/2014 11:02 AM SOLUTIONS SALES EXECUTIVE Pulse 72 03/25/2014 11:02 AM SOLUTIONS SALES EXECUTIVE Temperature - - Respiratory Rate 16 03/25/2014 11:02 AM SOLUTIONS SALES EXECUTIVE Oxygen Saturation - - Inhaled Oxygen Concentration - - Weight - - Height 178 cm (5' 10.08) 03/25/2014 11:02 AM SOLUTIONS SALES EXECUTIVE Body Mass Index - - documented in this encounter Progress Notes Celi Luna M.D. - 03/25/2014 10:57 AM CST [id number] CHIEF COMPLAINT/REASON FOR VISIT Follow up generalized myalgia, arthralgia. HISTORY OF PRESENT ILLNESS Ms. Bonilla is a 58-year-old lady, patient of Dr. Maninder Ochoa, who is specifically here requesting a referral to orthopedics and x-rays of the shoulders, hips, feet, and knee, because she believes that she has possibly arthritis and would like to get input from Orthopedics. Otherwise rheumatologic studies are negative except for elevated CRP of 11. She denies any weakness. She notes that this has been for some time. She is understanding that her weight does play a huge role in her pain. However, she feels that something else is going on. Denies recent viral illness. SYSTEMS REVIEW All systems reviewed. Positive as per HPI. Negative otherwise. Denies unintentional weight loss, fatigue, malaise, headaches, visual changes, fevers, nausea, vomiting, chest pain, shortness of breath, abdominal pain, dysuria, constipation, diarrhea, myalgia, or arthralgia. PAST MEDICAL/SURGICAL HISTORY As per HPI. MEDICATIONS Reconciled at today's visit. The tramadol was renewed. PHYSICAL EXAMINATION GENERAL: Pleasant female, no acute distress. Nontoxic looking. IMPRESSION/REPORT/PLAN Polymyalgia and polyarthralgia. Possibly she could have a component of polymyalgia rheumatica. However, at this time, she would like to hold off on initiating prednisone before she has her x-rays and sees Orthopedics. She is also inquiring about MRI. For time being, I would let my colleagues in orthope dics decide whether or not MRI is necessary. We also discussed that weight loss will help with her pain. We also discussed referral to physiatry for further evaluation of poor biomechanics. She notes that she has been following with Kerri for physical therapy and this does not seem to help. Hence, she would like to see orthopedics first. Celi Luna M.D./pos Electronically Signed By: CELI LUNA MD On: 04/04/2014 12:56 PM Modified by and Electronically Signed by: CELI LUNA MD On: 04/04/2014 12:56 PM Source: [facility] [email or web address] Document Id: [id number] TIONS SALES EXECUTIVE documented in this encounter Miscellaneous Notes Miscellaneous - Suki Cabello - 07/08/2014 10:28 AM CDT GABRIELA-fay Document Contains Addenda Addendum by ANETTE DODSON RN on 08 July 2014 11:34:00 CDT pt notiffied to pharmacy picking tech med at [facility] Addendum by MANINDER OCHOA MD on 08 July 2014 11:25:58 CDT From: MANINDER OCHOA MD To: [facility] Nurse; Sent: 07/08/2014 11:25:58 CDT Subject: RE: GABRIELA-cold Z-ashley prescribed in [facility]. Will go to the listed pharmacy Addendum by ANETTE DODSON RN on 08 July 2014 10:47:32 CDT From: ANETTE DODSON RN ([facility] Medicine Nurse) To: MANINDER OCHOA MD; Sent: 07/08/2014 10:47:32 CDT Subject: FW: OCHOA-cold Pt has stuffy nose and nasal pressure, cough and green phelgm. Pt's had these symptoms for 3 weeks. Pt has been taking mucinex and nyquil for the last 3 weeks with not much help. Pt is scheduled to seeyou next week. She is wondering if yiou wanted to prescribe an antibiotic? pt mentioned that her co-worker had similar symptoms and was prescribed antibiotic. From: SUKI CABELLO ([facility]) To: [facility] Nurse; Cc: [facility]; Sent: 07/08/2014 10:28:08 CDT Subject: OCHOA-cold If you need a prescription refill please call your pharmacy. Please allow 3 business days for processing. Call Center Template: ?? May we leave a message for you on this phone? yes ?? How soon do you need a call back? ?? What can I help you with today? she has come down with a cold and is wondering if DR Ochoa would call in an antibiotic for her. she does have an appointment next week with him but doesn't think she should wait that long. ?? If Medication Refill: o What is the medication? o What pharmacy do you use? [facility] [place] o Have you contacted your pharmacy regarding this request? I will send this information to the appropriate staff member who will look into your concern. If thenurse needs to talk to you he or she will call you back within two hours. Thank you for calling [facility]. Source: [facility] POWERCHART Document Id: [id number] Miscellaneous - Conversion, Historical Provider Ser - 06/17/2014 2:39 PM CDT med refill - tramadol Document Contains Addenda Addendum by KAMI RECINOS RN on 19 June 2014 10:39:13 CDT Pt notified. Very appreciative. Signed and faxed to [facility] in [place]. Addendum by JOSEP MOFFETT RN on 19 June 2014 10:25:35 CDT From: JOSEP MOFFETT RN ([facility] Nurse) To: KAMI RECINOS RN; Sent: 06/19/2014 10:25:35 CDT Subject: FW: med refill - tramadol Addendum by MANINDER OCHOA MD on 19 June 2014 10:13:14 CDT From: MANINDER OCHOA MD To: [facility] Nurse; Sent: 06/19/2014 10:13:14 CDT Subject: RE: med refill - tramadol OK to fill. She has to make the 60 pills last until her appt with me. ctj Addendum by KAMI RECINOS RN on 19 June 2014 09:21:26 CDT Pt requesting refill until her appt. Last refill of tramadol was by Dr. Luna on 05/06/14 for 60 tabs. Ordered 1-2 tabs q6hr PRN Pain. Hx of polymyalgia. Pt has appointment scheduled on 07/08/14. Please advise and I will notify pt. Thank you. Addendum by YAS HALL LPN on 19 June 2014 9:12 CDT Pt returned call wondering if she can get medication to last her until her appointment on 07/08/14 Please advise. Pt CB# [phone] Addendum by WILD MCGRATH RN on 18 June 2014 08:19:59 CDT Pt notified to make an appointment. Addendum by MANINDER OCHOA MD on 17 June 2014 16:17:35 CDT Not Approved: Order:traMADol (traMADol 50 mg oral tablet) 1-2 tab(s) PO q6hr Qty: 60 tab(s) Refills: 0 Substitutions Allowed PRN Pain Print - [id number] Other (See Comment) see my reply note Signed by MANINDER OCHOA MD Addendum by MANINDER OCHOA MD on 17 June 2014 16:16:48 CDT From: MANINDER OCHOA MD To: [facility] Nurse; Sent: 06/17/2014 16:16:48 CDT Subject: RE: med refill - tramadol I saw her back in October to establish care. She wasn't on tramadol then, or at least it wasn't on her med list. She missed f/u with me a month later and hasn't been in to see me since. She saw Dr. Luna a couple of times since then, but I don't see that tramadol was ordered. At any rate, I'm not comfortable refilling the prescription without her seeing me first and then I can't guarantee that I'll fill it. ctj From: JOSEP MOFFETT RN ([facility] Nurse) To: MANINDER OCHOA MD; Sent: 06/17/2014 14:39:29 CDT Subject: med refill - tramadol On hold pending signature Order:traMADol (traMADol 50 mg oral tablet) 1-2 tab(s) PO q6hr Qty: 60 tab(s) Refills: 0 Substitutions Allowed PRN Pain Print - [id number] Caller is: ( ) Patient ( ) Mother ( ) Father ( ) Spouse ( ) Daughter ( ) Son ( x ) Pharmacy ( ) Other: Provider: Gabriela [facility] Name of Medications Needing Refill:tramadol Last Refill Date:03/25/14 Additional Information:direct to provider medication Last / Future Appointment:03/25/[address] Luna Disposition: ( x ) Send to Pharmacy ( ) Call to Pharmacy ( ) Patient will pharmacy picking tech Script ( ) Mail Rxto Patient Source: [facility] [employer] Document Id: [id number] Mallika - Citlali Gurrola R.M.A. - 05/06/2014 3:35 PM CST Rc for Tramadol Document Contains Addenda Addendum by EMPERATRIZ KATZ LPN on 06 May 2014 16:10:29 SOLUTIONS SALES EXECUTIVE Left message on patients phone that RX is ready to be picked up at the front desk specialist at earliest convience. Addendum by CELI LUNA MD on 06 May 2014 16:07:12 SOLUTIONS SALES EXECUTIVE From: CELI LUNA MD To: EMPERATRIZ KATZ LPN; Sent: 05/06/2014 16:07:12 SOLUTIONS SALES EXECUTIVE Subject: FW: Rc for Tramadol call pt and she can pharmacy picking tech script. From: CITLALI GURROLA To: CELI LUNA MD; Sent: 05/06/2014 15:35:16 SOLUTIONS SALES EXECUTIVE Subject: Rc for Tramadol Patient was seen by Dr Luna on 03/25/14 for polymyalgia. Patient was given an Rx for Tramadol. She states that she can not find the Rx that was given to her. She is requesting a new Rx. She states that she is going out of town this weekend for a week and would like this Rx before then. Please advise. Source: [facility] [employer] Document Id: [id number] Electronically signed by Ryan, [facility] Ict Sales Representative [id number] at 08/08/2016 9:33 PM CDT Citlali Cordova, JosePAaronNAaron - 04/05/2014 2:16 PM CST call back-Riana Document Contains Addenda Addendum by KAMI RECINOS RN on 09 April 2014 15:57:28 SOLUTIONS SALES EXECUTIVE LM for patient stating information described below. Addendum by CELI LUNA MD on 06 April 2014 12:29:43 SOLUTIONS SALES EXECUTIVE From: CELI LUNA MD To: [facility] Nurse; Sent: 04/06/2014 12:29:43 SOLUTIONS SALES EXECUTIVE Subject: RE: call back-Riana we discussed that elevated CRP could be from polymyalgia rheumatica. for the time being, she didnt want to try a trial of steroids Addendum by JOSEP MOFFETT RN on 05 April 2014 16:01:39 SOLUTIONS SALES EXECUTIVE From: JOSEP MOFFETT RN ([facility] Nurse) To: CELI LUNA MD; Sent: 04/05/2014 16:01:39 SOLUTIONS SALES EXECUTIVE Subject: FW: call back-Riana Addendum by JOSEP MOFFETT RN on 05 April 2014 16:01:[address] Luna, I called patient and left message to call back, she is aware that you are out of office and is Dr Ochoa and that we will contact her Tuesday. What explanation would you like me to tell her about her elevated CRP? Please advise. Thank you. Addendum by JOSEP MOFFETT RN on 05 April 2014 15:57:42 SOLUTIONS SALES EXECUTIVE From: JOSEP MOFFETT RN To: [facility] Nurse; Sent: 04/05/2014 15:57:42 SOLUTIONS SALES EXECUTIVE Subject: FW: call back-Riana Addendum by JOSEP MOFFETT RN on 05 April 2014 15:56:02 SOLUTIONS SALES EXECUTIVE From: JOSEP MOFFETT RN ([facility] Nurse) To: MARK ATKINSON MD; Sent: 04/05/2014 15:56:02 SOLUTIONS SALES EXECUTIVE Subject: FW: call back-Riana Addendum by JOSEP MOFFETT RN on 05 April 2014 15:55:[address] Atkinson, Can you review and give further instructions for CRP results? Thank you. From: CITLALI TENA LPN To: [facility]; Sent: 04/05/2014 14:16:12 SOLUTIONS SALES EXECUTIVE Subject: call back-Riana Patient accessing patient portal and noted elevated CRP. Patient is wondering how much of a concern this is. Patient wanting explanation of meaning and value. Please advise Call back [phone] Source: [facility] POWERCHART Document Id: [id number] Electronically signed by Conversion, [facility] Ict Sales Representative [id number] at 08/08/2016 9:33 PM CDT Miscellaneous - Celi Luna M.D. - 03/27/2014 6:04 PM CST Ambulatory Patient Summary [address] [id number] Visit Information Name: RADHA GLORIAMADHAVI RAMOS [facility] Number: [id number] Current Date: 03/27/2014 18:04:45 Physicians Attending Provider: CELI LUNA MD Primary Care Provider: MANINDER OCHOA MD RADHALISSMADHAVI RAMOS has been given the following list of [...] Instructions apply to skin of hands Daily naproxen (naproxen 500 mg oral tablet) 1 Tablet(s), Oral, two times a day with meals traMADol (traMADol 50 mg oral tablet) 1-2 tab(s), Oral, every 6 hours as needed for Pain Routed to Printer triamterene-hydrochlorothiazide (triamterene-hydrochlorothiazide 37.5 mg-25 mg oral tablet) 1 Tablet(s), Oral, every week triamterene-hydrochlorothiazide (triamterene-hydrochlorothiazide 37.5 mg-25 mg oral tablet) 1 Tablet(s), Oral, once a day venlafaxine (Effexor XR 150 mg oral capsule, extended release) 1 cap, Oral, once a day Stop Taking the Following Medications: Medication list as of 03-27-14 18:04 Attention: If you have any medications at home that are not on this list, DO NOT take them until youcontact your provider for clarification. Give a copy of your medication list to your primary care provider. Update your medication list any time medications or doses are changed and carry your medication list at all times in case of emergency. Electronically Signed By: CELI LUNA MD Signed On:27-MAR-2014 18:04:36 Your Allergies & Intolerances Substance Reaction Symptoms [...] appointment detail needed. Your Goals/Additional instructions: Source: [facility] POWERCHART Document Id: [id number] TIONS SALES EXECUTIVE Miscellaneous - Celi Luna M.D. - 03/27/2014 6:04 PM CST Ambulatory Discharge Medication List [address] [id number] Visit Information Name: GLORIA BONILLA [facility] Number: [id number] Visit Date: 03/27/2014 18:04:42 Attending Provider: CELI LUNA MD Primary Care Provider: MANINDER OCHOA MD RADHA GLORIAMADHAVI RAMOS has been given the following list of [...] Instructions apply to skin of hands Daily naproxen (naproxen 500 mg oral tablet) 1 Tablet(s), Oral, two times a day with meals traMADol (traMADol 50 mg oral tablet) 1-2 tab(s), Oral, every 6 hours as needed for Pain Routed to Printer triamterene-hydrochlorothiazide (triamterene-hydrochlorothiazide 37.5 mg-25 mg oral tablet) 1 Tablet(s), Oral, every week triamterene-hydrochlorothiazide (triamterene-hydrochlorothiazide 37.5 mg-25 mg oral tablet) 1 Tablet(s), Oral, once a day venlafaxine (Effexor XR 150 mg oral capsule, extended release) 1 cap, Oral, once a day Stop Taking the Following Medications: Medication list as of 03-27-14 18:04 Attention: If you have any medications at home that are not on this list, DO NOT take them until youcontact your provider for clarification. Give a copy of your medication list to your primary care provider. Update your medication list any time medications or doses are changed and carry your medication list at all times in case of emergency. Electronically Signed By: CELI LUNA MD Signed On:27-MAR-2014 18:04:36 Additional Information: Source: [facility] POWERCHART Document Id: [id number] TIONS SALES EXECUTIVE Miscellaneous - Celi Luna M.D. - 03/25/2014 2:19 PM CST Results Notification Document Contains Addenda Addendum by EMPERATRIZ KATZ LPN on 25 March 2014 16:17:53 SOLUTIONS SALES EXECUTIVE Notified pt of results, From: CELI LUNA MD To: EMPERATRIZ KATZ LPN; Sent: 03/25/2014 14:19:47 SOLUTIONS SALES EXECUTIVE ! Show up: 03/25/2014 14:19:47 SOLUTIONS SALES EXECUTIVE Subject: Results Notification Actions: Notify patient of results Reminder Comments: DJD of knees/hip. shoulders normal. Results: Date Result Type Result Name 03/25/2014 13:35 Radiology XR Hip/Pelvis Bilat Source: [facility] POWERCHART Document Id: [id number] Electronically signed by Ryan, [facility] Ict Sales Representative [id number] at 08/08/2016 9:33 PM CDT Miscellaneous - Conversion, Historical Provider Ser - 03/25/2014 11:02 AM SOLUTIONS SALES EXECUTIVE Adult Information Management Specialist Intake/History Adult Information Management Specialist Intake/History Entered On: 03/25/2014 11:07 SOLUTIONS SALES EXECUTIVE Performed On: 03/25/2014 11:02 SOLUTIONS SALES EXECUTIVE by EMPERATRIZ KATZ LPN Intake Chief Complaint : f/u myalgia, questions abouts going on she doesn't want to go to pain clinic and just mask the problem Temperature Core : 36.5 DegC(Converted to: 97.7 DegF) Peripheral Pulse Rate : 72 /min Respiratory Rate : 16 /min Heart Rhythm : Regular Systolic Blood Pressure : 138 mmHg Diastolic Blood Pressure : 76 mmHg NIBP Mean : 97 mmHg BP Location : Right upper extremity Blood Pressure Cuff Size : Regular SpO2 : 98 % Oxygen Therapy : Room air Height : 178 cm(Converted to: 5 ft 10 inch(es), 70 inch(es)) EMPERATRIZ KATZ LPN - 03/25/2014 11:02 SOLUTIONS SALES EXECUTIVE General Info Languages : Austrian Is Patient Female and 13-50 no hysterectomy : No EMPERATRIZ KATZ LPN - 03/25/2014 11:02 SOLUTIONS SALES EXECUTIVE Subjective Pain Symptoms : Yes EMPERATRIZ KATZ LPN - 03/25/2014 11:02 SOLUTIONS SALES EXECUTIVE Pain Scale Pain Scale Verbal 0-10 : Open EMPERATRIZ KATZ LPN - 03/25/2014 11:02 SOLUTIONS SALES EXECUTIVE Effects of Pain Grid Daily Life : Moderate (Comment: More pain when standing up than sitting [EMPERATRIZ KATZ LPN - 03/25/2014 11:02 SOLUTIONS SALES EXECUTIVE] ) EMPERATRIZ KATZ LPN - 03/25/2014 11:02 SOLUTIONS SALES EXECUTIVE Pain Pain Assessment Grid Pain 1 Location : Other: All over body (Comment: In her joints. [EMPERATRIZ KATZ LPN - 03/25/2014 11:02 SOLUTIONS SALES EXECUTIVE] ) Intensity : 8 EMPERATRIZ KATZ LPN - 03/25/2014 11:02 SOLUTIONS SALES EXECUTIVE Dependent Habits Tobacco Use/Currently Using : No Smoking Status : Never smoker EMPERATRIZ KATZ [facility] - 03/25/2014 11:02 SOLUTIONS SALES EXECUTIVE Tobacco Use Grid Last Use : never EMPERATRIZ KATZ [facility] - 03/25/2014 11:02 SOLUTIONS SALES EXECUTIVE Alcohol Use : Yes EMPERATRIZ KATZ [facility] - 03/25/2014 11:02 SOLUTIONS SALES EXECUTIVE Caffeine Use Grid Caffeine Use : Current Type : Coffee Frequency : Daily Amount : couple cups daily EMPERATRIZ KATZ [facility] - 03/25/2014 11:02 SOLUTIONS SALES EXECUTIVE ID Screen Travel Within Last 21 Days : No EMPERATRIZ KATZ [facility] - 03/25/2014 11:02 SOLUTIONS SALES EXECUTIVE Source: MD.Voice Document Id: [id number] SOLUTIONS SALES EXECUTIVE!44 documented in this encounter Plan of Treatment Not on filedocumented as of this encounter Procedures Procedure Name Priority Date/Time Associated Diagnosis Comme nts DX KNEE BILATERAL Routine 03/25/2014 1:12 PM Resu lts for this STANDING 2 VIEWS SOLUTIONS SALES EXECUTIVE procedure a re in the results section. DX SHOULDER LEFT 2+ Routine 03/25/2014 12:57 PM R esults for this VIEWS SOLUTIONS SALES EXECUTIVE procedure are i n the results section. DX SHOULDER RIGHT Routine 03/25/2014 12:42 PM Res ults for this 2+ VIEWS SOLUTIONS SALES EXECUTIVE procedure are i n the results section. DX HIPS BILATERAL Routine 03/25/2014 12:19 PM Res ults for this WITH ANTERIOR SOLUTIONS SALES EXECUTIVE procedure are in POSTERIOR PELVIS 2+ the resu lts VIEWS section. documented in this encounter Results DX Knee Bilateral Standing 1-2 Views (03/25/2014 1:12 PM SOLUTIONS SALES EXECUTIVE) Anatomical Region Laterality Modality Lower Extremity, Knee Bilateral Radiographic Imagi ng Specimen (Source) Anatomical Collection Method Collection Time Re ceived Time Location / / Volume Laterality 03/25/2014 1:12 PM SOLUTIONS SALES EXECUTIVE Addenda Addendum by Provider, Magali Navarrete 03/25/2014 1:12 PM SOLUTIONS SALES EXECUTIVE RAD^^^MA XR Knee Bilat Std AP + Bilat 1-2 views 03/25/2014 13:12:36 Impressions 03/25/2014 1:43 PM SOLUTIONS SALES EXECUTIVE 1. Degenerative osteoarthritis of the ri ght knee primarily involving the patellofemoral joint. 2. Degenerative osteoarthritis of the le ft knee with worst involvement of the lateral compartment a nd some associated mild genu valgus. Narrative 03/25/2014 1:43 PM SOLUTIONS SALES EXECUTIVE EXAM: XR Knee Bilat Std AP + Bilat 1-2 v iews INDICATION: arthralgia, ?DJD COMPARISON: None. FINDINGS: On the right soft tissues are unremarkable without significant knee joint effusion. There i s narrowing of the patellofemoral joint with some subchondr al sclerosis and degenerative spurring. Medial and lateral compartment s are relatively preserved with some mild degenerative spurring of the lateral compartment. On the left soft tissues demonstrate a s mall knee joint effusion. No fracture or destructive lesion is identi fied. There is narrowing of the lateral compartment with degenerativ e spurring and mild genu valgus. Medial compartment is relatively preserved. There is some mild degenerative spurring and irregular ity of the patellofemoral joint. Procedure Note Cory Aguilar Jr., M.D. / Landon Bocanegra M.D. - 07/21/2016 EXAM: XR Knee Bilat Std AP + Bilat 1-2 v iews INDICATION: arthralgia, ?DJD COMPARISON: None. FINDINGS: On the right soft tissues are unremarkable without significant knee joint effusion. There i s narrowing of the patellofemoral joint with some subchondr al sclerosis and degenerative spurring. Medial and lateral compartment s are relatively preserved with some mild degenerative spurring of the lateral compartment. On the left soft tissues demonstrate a s mall knee joint effusion. No fracture or destructive lesion is identi fied. There is narrowing of the lateral compartment with degenerativ e spurring and mild genu valgus. Medial compartment is relatively preserved. There is some mild degenerative spurring and irregular ity of the patellofemoral joint. IMPRESSION: 1. Degenerative osteoarthritis of the ri ght knee primarily involving the patellofemoral joint. 2. Degenerative osteoarthritis of the le ft knee with worst involvement of the lateral compartment a nd some associated mild genu valgus. Historical Provider IMG DIAGNOSTIC IMAGING PROCE DURES DX Shoulder Left 2+ Views (03/25/2014 12:57 PM SOLUTIONS SALES EXECUTIVE) Anatomical Region Laterality Modality Upper Extremity, Shoulder Left Radiographic I maging Specimen (Source) Anatomical Collection Method Collection Time Re ceived Time Location / / Volume Laterality 03/25/2014 12:57 PM SOLUTIONS SALES EXECUTIVE Addenda Addendum by Provider, Magali Navarrete o n 03/25/2014 12:57 PM SOLUTIONS SALES EXECUTIVE RAD^^^MA XR Shoulder Left 2 or more views 03/25/2014 12:57:06 Impressions 03/25/2014 1:41 PM SOLUTIONS SALES EXECUTIVE Negative left shoulder. Narrative 03/25/2014 1:41 PM SOLUTIONS SALES EXECUTIVE EXAM: XR Shoulder Left 2 or more views INDICATION: arthralgia, ?DJD COMPARISON: None. FINDINGS: Soft tissues are unremarkable. No fracture or destructive lesion is identified. Shoulder joint spa carlos a are preserved. Procedure Note Cory Aguilar Jr., M.D. / Provid Landon benavidez M.D. - 07/21/2016 EXAM: XR Shoulder Left 2 or more views INDICATION: arthralgia, ?DJD COMPARISON: None. FINDINGS: Soft tissues are unremarkable. No fracture or destructive lesion is identified. Shoulder joint spa carlos a are preserved. IMPRESSION: Negative left shoulder. Historical Provider IMG DIAGNOSTIC IMAGING PROCE DURES DX Shoulder Right 2+ Views (03/25/2014 12:42 PM SOLUTIONS SALES EXECUTIVE) Anatomical Region Laterality Modality Upper Extremity, Shoulder Right Radiographic I maging Specimen (Source) Anatomical Collection Method Collection Time Re ceived Time Location / / Volume Laterality 03/25/2014 12:42 PM SOLUTIONS SALES EXECUTIVE Addenda Addendum by Provider, Magali Navarrete o n 03/25/2014 12:42 PM SOLUTIONS SALES EXECUTIVE RAD^^^MA XR Shoulder Right 2 or more views 03/25/2014 12:42:09 Impressions 03/25/2014 1:32 PM SOLUTIONS SALES EXECUTIVE Negative right shoulder Narrative 03/25/2014 1:32 PM SOLUTIONS SALES EXECUTIVE EXAM: XR Shoulder Right 2 or more views INDICATION: arthralgia, ?DJD COMPARISON: None. FINDINGS: The bones are intact and show no evidence of fracture or focal destruction. The joint spaces are maintained and no soft tissue abnormality is seen. Procedure Note Abel Fine M.D. / ProviderMerlin M.D. - 07/21/2016 EXAM: XR Shoulder Right 2 or more views INDICATION: arthralgia, ?DJD COMPARISON: None. FINDINGS: The bones are intact and show no evidence of fracture or focal destruction. The joint spaces are maintained and no soft tissue abnormality is seen. IMPRESSION: Negative right shoulder Historical Provider IMG DIAGNOSTIC IMAGING PROCE DURES DX Hip Bilateral with Anteroposterior Pelvis 2+ Views (03/25/2014 12:19 PM SOLUTIONS SALES EXECUTIVE) Anatomical Region Laterality Modality Lower Extremity, Pelvis, Hip Bilateral Radiographi c Imaging Specimen (Source) Anatomical Collection Method Collection Time Re ceived Time Location / / Volume Laterality 03/25/2014 12:19 PM SOLUTIONS SALES EXECUTIVE Addenda Addendum by Provider, Magali Navarrete o n 03/25/2014 12:19 PM SOLUTIONS SALES EXECUTIVE RAD^^^MA XR Pelvis Hip 2 views bilat 03/25/2014 12:19:26 Impressions 03/25/2014 1:31 PM SOLUTIONS SALES EXECUTIVE Mild bilateral hip joint DJD. Narrative 03/25/2014 1:31 PM SOLUTIONS SALES EXECUTIVE EXAM: XR Hip/Pelvis Bilat INDICATION: arthralgia, ?DJD COMPARISON: None. FINDINGS: The bony pelvis and right and left hip are intact and show no evidence of fracture or focal destruc tion. Is minimal spurring of the margins of the right hip and acetabu lar rims. Procedure Note Abel Fine M.D. / Provider, Merlin lopez M.D. - 07/21/2016 EXAM: XR Hip/Pelvis Bilat INDICATION: arthralgia, ?DJD COMPARISON: None. FINDINGS: The bony pelvis and right and left hip are intact and show no evidence of fracture or focal destruc tion. Is minimal spurring of the margins of the right hip and acetabu lar rims. IMPRESSION: Mild bilateral hip joint DJD . Historical Provider IMG DIAGNOSTIC IMAGING PROCE DURES documented in this encounter Visit Diagnoses Not on filedocumented in this encounter
--- OUTSIDE RECORDS SUMMARY | 2021-12-03 11:09 | XMS_ITS | Encounter Summary ---
:1955 Author Organization [facility] Address [address] [place] [address] Care Team Providers Name Role Phone Unavailable Primary Care Provider Unavailable Encounter Details Date Type Department Care Team Description 01/31/2015 Hospital Encounter HX [facility] Maninder Loew M.D. Social History Tobacco Use Types Packs/Day [...] - - Height 178 cm (5' 10.08) 01/31/2015 11:30 AM HAND PICKER Body Mass Index - - documented in this encounter Miscellaneous Notes Telephone Encounter - Vanessa Calix, R.N. - 02/11/2015 10:57 AM CST Refill Request - Prednisone Document Contains Addenda Addendum by VANESSA CALIX RN on 13 February 2015 10:22:23 HAND PICKER patient reports that she did mangle a couple to powder. She now has a pill cutter and reports she does have enough for almost 2 weeks remaining, I advised her to request a refill when she has 3-4 daysremaining. No further questions at this time. From: VANESSA CALIX RN ([facility] Family Medicine Nurse) To: JOE Yu Family Medicine Nurse; Sent: 02/11/2015 10:57:36 HAND PICKER Subject: Refill Request - Prednisone TRC. Refill request received for patient's prednisone with the following note: Pt requesting refill due to not being able to not adequately split tabs as instructed. Need more information from patient, if pills not splitting properly is she throwing them away or ?? She can take the broken tablets as her 5mg dose if she doesn't get them cut in half properly. Need toknow why she is needing a refill already, should have 13 days remaining. Source: [facility] [employer]ART Document Id: [id number] Electronically signed by Conversion, [facility] Director Writing [id number] at 08/09/2016 5:51 AM CDT Miscellaneous - Maninder Ochoa M.D. - 02/03/2015 7:55 AM CST Results Notification Document Contains Addenda Addendum by CITLALI GURROLA Ceci on 03 February 2015 11:35:31 HAND PICKER Discussed at patient visit today From: MANINDER OCHOA MD To: CITLALI GURROLA; Sent: 02/03/2015 07:55:54 HAND PICKER ! Show up: 02/03/2015 07:55:54 HAND PICKER Subject: Results Notification Actions: Notify patient-refer to General Message Reminder Comments: coming in Results: Date Result Name Value Ref Range 01/31/2015 11:34 Sed Rate 29 mm/hr (0 - 29) Source: [facility] POWERCHART Document Id: [id number] Electronically signed by Conversion, [facility] Director Writing [id number] at 08/09/2016 5:51 AM CDT documented in this encounter Plan of Treatment Not on filedocumented as of this encounter Procedures Procedure Name Priority Date/Time Associated Comments Diagnosis SEDIMENTATION RATE, B Routine 01/31/2015 11:34 Re sults for this AM HAND PICKER procedure are i n the results section. documented in this encounter Results Sedimentation Rate (01/31/2015 11:34 AM HAND PICKER) [facility] Time Signature Sedimentation 29 0 - 29 POWERCHART Rate, B MMHR Specimen (Source) Anatomical Collection Method Collection Time Re ceived Time Location / / Volume Laterality Blood 01/31/2015 11:34 AM HAND PICKER Maninder Ochoa M.D. LAB BLOOD ADD-ON Performing Organization Address City/State/ZIP Code Phon e Number POWERCHART documented in this encounter Visit Diagnoses Not on filedocumented in this encounter Additional Health Concerns Assessment Noted Time PHQ-9 Depression Total Score: 2 07/15/2014 11:54 AM CD T documented as of this encounter
--- OUTSIDE RECORDS SUMMARY | 2021-12-03 11:09 | XMS_ITS | Encounter Summary ---
:1955 Author Organization [facility] Address [address] [place] [address] Care Team Providers Name Role Phone Unavailable Primary Care Provider Unavailable Encounter Details Date Type Department Care Team Description 08/22/2015 Hospital Encounter HX [facility] LAB Wendy De Los Santos M.B.B.S. [address] [place], [place] [phone] (Wo rk) Social History [...] - - Height 176 cm (5' 9.29) 08/22/2015 11:20 AM CDT Body Mass Index - - [...] of this encounter Miscellaneous Notes Miscellaneous - Florinda Camarillo - 10/14/2015 7:31 AM CDT *General Message Document Contains Addenda Addendum by CELI LUNA MD on October 15, 2015 11:46:16 CDT From: CELI LUNA MD To: [facility] Family Medicine Nurse; Sent: 10/15/2015 11:46:16 CDT Subject: RE: *General Message nothing to add. angelica emmanuel. Addendum by VANESSA CALIX RN on October 14, 2015 08:15:07 CDT From: VANESSA CALIX RN ([facility] Medicine Nurse) To: CELI LUNA MD; Sent: 10/14/2015 08:15:07 CDT Subject: FW: *General Message Notified patient that she would need to be seen to be prescribed medication, especially the Abx. Notes from Urgent Care do not mention her eyes at all. She did still sound very congested, so symptoms do still seem viral in nature. Patient reported that Dr. Salvador always just gave her the medication she requested for her pink eye (according to message below eye drops and Amoxicillin) Patient reports that her insurance is not good,so she declines an appointment and will ride it out. From: FLORINDA CAMARILLO To: [facility] Medicine Nurse; Cc: [facility] Call Center; Sent: 10/14/2015 07:31:02 CDT Subject: *General Message If you need a prescription refill please call your pharmacy. Please allow 3 business days for processing. Call Center Template: ?? May we leave a message for you on this phone? ?? How soon do you need a call back? ?? What can I help you with today? she was seen at the [facility] tuesday and got pink eye and it's not getting better wondering if she could get some drops and amoxacillain. Doctor at [facility] thought it was a virus and didn't get any medication. ?? If Medication Refill: o What is the medication? o What pharmacy do you use? [facility] [place]. o Have you contacted your pharmacy regarding this request? I will send this information to the appropriate staff member who will look into your concern. If thenurse needs to talk to you he or she will call you back within two hours. Thank you for calling [facility]. Source: [facility] POWERCHART Document Id: [id number] Electronically signed by Conversion, [facility] Forestry Biology Specialist [id number] at 08/07/2016 8:34 PM CDT documented in this encounter Plan of Treatment Not on filedocumented as of this encounter Procedures Procedure Name Priority Date/Time Associated Comments Diagnosis AUTOMATED DIFFERENTIAL, Routine 08/22/2015 12:10 Results for this B PM CDT procedure are i n the results section. CBC WITH DIFFERENTIAL, B Routine 08/22/2015 12:10 Results for this PM CDT procedure are i n the results section. ASPARTATE Routine 08/22/2015 12:10 Results for this AMINOTRANSFERASE (AST), PM CDT proc edure are in S/P the results section. CREATININE WITH EGFR, Routine 08/22/2015 12:10 Re sults for this S/P PM CDT procedure are i n the results section. documented in this encounter Results Automated Differential (08/22/2015 12:10 PM CDT) P athologist Signature Absolute 6.62 1.70 - POWERCHART Neutrophils 7.00 109L Lymphocytes 1.82 0.90 - POWERCHART 2.90 X109L Monocytes 0.79 0.30 - POWERCHART 0.90 X109L Eosinophils 0.08 0.05 - POWERCHART 0.50 X109L Absolute 0.02 0.00 - POWERCHART Basophil 0.30 X109L Specimen Anatomical Collection Method Collection Time Receive d Time (Source) Location / / Volume Laterality Blood 08/22/2015 12:10 08/22/2015 PM CDT 12:10 PM CDT Nicole Mariano LAB BLOOD ADD-ON Performing Organization Address City/State/ZIP Code Phon e Number POWERCHART CBC with Differential (08/22/2015 12:10 PM CDT) athologist Signature Leukocytes 9.3 3.5 - 10.5 POWERCHART X109L Erythrocytes 4.04 3.90 - POWERCHART 5.03 [id number] Hemoglobin 12.6 12.0 - POWERCHART 15.5 GDL Hematocrit 39.6 34.9 - POWERCHART 44.5 MCV 98.0 81.6 - POWERCHART 98.3 FL HX RDW 13.7 11.9 - POWERCHART 15.5 Platelet Count 324 150 - 450 POWERCHART X109L HXDifferential? Auto POWERCHART Specimen (Source) Anatomical Collection Method Collection Time Re ceived Time Location / / Volume Laterality Blood 08/22/2015 12:10 PM CDT Nicole [place] LAB BLOOD ADD-ON Performing Organization Address City/State/ZIP Code Phon e Number POWERCHART Creatinine with eGFR (08/22/2015 12:10 PM CDT) P athologist Signature Creatinine 0.6 0.6 - 1.1 POWERCHART MGDL HXeGFR (MDRD) >60.0 >=60.0 POWERCHART MLMINSA eGFR >60.0 >=60.0 POWERCHART Black/ MLMINSA Nigerian Specimen (Source) Anatomical Collection Method Collection Time Re ceived Time Location / / Volume Laterality Blood 08/22/2015 12:10 PM CDT Nicole [place] LAB BLOOD ADD-ON Performing Organization Address City/State/ZIP Code Phon e Number POWERCHART AST (Aspartate Aminotransferase) (08/22/2015 12:10 PM CDT) Patholo gist Method Time Signature Aspartate 30 8 - 43 UL POWERCHART Aminotransferase (AST), S Specimen (Source) Anatomical Collection Method Collection Time Re ceived Time Location / / Volume Laterality Blood 08/22/2015 12:10 PM CDT Nicole [place] LAB BLOOD ADD-ON Performing Organization Address City/State/ZIP Code Phon e Number POWERCHART documented in this encounter Visit Diagnoses Not on filedocumented in this encounter Additional Health Concerns Assessment Noted Time PHQ-9 Depression Total Score: 2 07/15/2014 11:54 AM CD T documented as of this encounter
--- OUTSIDE RECORDS SUMMARY | 2021-12-03 11:09 | XMS_ITS | Encounter Summary ---
:1955 Author Organization [facility] Address [address] [place] [address] Care Team Providers Name Role Phone Unavailable Primary Care Provider Unavailable Encounter Details Date Type Department Care Team Description 03/13/2015 Hospital Encounter HX [facility] LAB Maninder Salvador M.D. Social History Tobacco Use Types Packs/Day [...] - - Height 178 cm (5' 10.08) 03/13/2015 11:36 AM TATTOO TECHNICIAN Body Mass Index - - documented in this encounter Plan of Treatment Not on filedocumented as of this encounter Procedures Procedure Name Priority Date/Time Associated Comments Diagnosis SEDIMENTATION RATE, B Routine 03/13/2015 11:50 Re sults for this AM TATTOO TECHNICIAN procedure are i n the results section. documented in this encounter Results (ABNORMAL) Sedimentation Rate (03/13/2015 11:50 AM TATTOO TECHNICIAN) [facility] gist Method Time Signature Sedimentation 34 (H) 0 - 29 POWERCHART Rate, B MMHR Specimen (Source) Anatomical Collection Method Collection Time Re ceived Time Location / / Volume Laterality Blood 03/13/2015 11:50 AM TATTOO TECHNICIAN Maninder Salvador M.D. LAB BLOOD ADD-ON Performing Organization Address City/State/ZIP Code Phon e Number POWERCHART documented in this encounter Visit Diagnoses Not on filedocumented in this encounter Additional Health Concerns Assessment Noted Time PHQ-9 Depression Total Score: 2 07/15/2014 11:54 AM CD T documented as of this encounter
--- OUTSIDE RECORDS SUMMARY | 2021-12-03 11:09 | XMS_ITS | Encounter Summary ---
:1955 Author Organization [facility] Address [address] [place] [address] Care Team Providers Name Role Phone Unavailable Primary Care Provider Unavailable Encounter Details Date Type Department Care Team Description 03/01/2014 Hospital Encounter HX [facility] INTERNMED Maddie Luna M.D. Social History Tobacco Use Types Packs/Day Years Used Date Smoking Tobacco: Never Assessed Sex Assigned at Date Recorded Not on file documented as of this encounter Last Filed Vital Signs Vital Sign Reading Time Taken Comments Blood Pressure 142/78 03/01/2014 10:32 AM JAVA TECH LEAD Pulse 80 03/01/2014 10:32 AM JAVA TECH LEAD Temperature - - Respiratory Rate 16 03/01/2014 10:32 AM JAVA TECH LEAD Oxygen Saturation - - Inhaled Oxygen Concentration - - Weight - - Height 178 cm (5' 10.08) 03/01/2014 10:32 AM JAVA TECH LEAD Body Mass Index - - documented in this encounter Progress Notes Celi Luna M.D. - 03/01/2014 10:29 AM CST [id number] CHIEF COMPLAINT/REASON FOR VISIT Consult for arthritis and generalized pain for the last 4 years. HISTORY OF PRESENT ILLNESS Ms. Garcia is a 58-year-old lady, patient of Dr. 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 She denies any fevers or chills. Endorses morning stiffness that lasts for at least half an hour. She has a family history of a mother with rheumatoid arthritis. She is wondering if this can possibly be from arthritis. She notes that her joints seem to hurt, especially in the hands and knees. It is harder for her to open the jars. The pain is aggravated with standing, bending forward, rolling over a bed. She recently finished physical therapy for her shoulder and hip pain, and notes no improvement withher myalgia from this. Her history is also notable for chronic neck pain secondary to cervical DJD. She was seen by [employer] systems administrator in the [facility] 4 years ago who felt that this was secondary to a rheumatologic issue. In terms of pain control, she has been trying naproxen with some mild relief and as well as Tylenol. She has had Tylenol in the past for neck pain and requested that she have some of that for this generalized pain. SYSTEMS REVIEW Review of systems positive per HPI. Negative otherwise. PAST MEDICAL/SURGICAL HISTORY Reviewed in EMR. MEDICATIONS Reconciled at today's visit. FAMILY HISTORY Mother with rheumatoid arthritis. Sister with psoriasis and thyroid issues. 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 Never smoker. VITAL SIGNS Temp 36.9, pulse is 80, respiratory rate 16, blood pressure 142/78, 97% on room air, 109.5 kg. BMI 35. PHYSICAL EXAMINATION GENERAL: Pleasant female, no acute distress. Nontoxic looking. MUSCULOSKELETAL: Non antalgic gait. She has significant valgus deformity at the knees bilaterally. Good wharf hand strength. Possible cellulitis in the PIP joints of her hands bilaterally. No hand deformity. IMPRESSION/REPORT/PLAN Generalized myalgia, query rheumatoid arthritis. We will check a rheumatoid factors, PCRP, ESR and LATESHA. She did have a rheumatoid factor and CRP doneback in 2009 which were both normal. She has had a TSH checked recently which was also normal. We also discussed that if this is not a rheumatologic issue, it is most likely secondary to her biomechanics. She does have an elevated BMI at 35 and with significant valgus at the knees it could be secondary to poor biomechanics and obesity. If rheumatologic evaluation is negative, will proceed with further evaluation and treatment by Physiatry. Celi Luna M.D./pos Electronically Signed By: CELI LUNA MD On: 04/19/2014 04:04 PM Modified by and Electronically Signed by: CELI LUNA MD On: 04/19/2014 04:04 PM Source: [facility] MHSDOLBEYNONRADSYS Document Id: [id number] TECH LEAD documented in this encounter Nursing Notes Celi Luna M.D. - 03/27/2014 4:10 PM CST Ambulatory Patient Education The following Patient Education Materials have been given to the patient: Patient Education Materials: Ambulatory MYALGIAS Ambulatory Myalgias Myalgia is the term for muscle aching, sometimes described by patients as aching all over. It is not a disease but a symptom of an illness, such as the cold or flu. Any illness with a high fever can cause myalgias. Certain chronic or recurring medical illnesses can cause myalgias (such as Lupus and other collagen-vascular diseases). These chronic illnesses usually cause other serious symptoms in addition to the myalgias. Home Care: 1) Rest until you are feeling better. 2) You may use acetaminophen (Tylenol) or ibuprofen (Motrin, Advil) to control pain, unless another medicine was prescribed. [ NOTE : If you have chronic liver or kidney disease or ever had a stomach ulcer or GI bleeding, talk with your doctor before using these medicines.] 3) If you have a high fever, drink plenty of fluids to prevent dehydration (water, soft, drinks, juices, tea, soup, etc.). Follow Up with your doctor or as advised by our staff. If myalgia symptoms do not resolve in a few days or become recurrent, follow up with your doctor for further testing. Get Prompt Medical Attention if any of the following occur: ?? Fever of 100.4??F (38??C) or higher, or as directed by your healthcare provider ?? New joint pains ?? New rash ?? Severe headache, neck pain, drowsiness or confusion ?? [phone] [facility], [address] [place] [address], [place] [address]. All rights reserved. This information is not intended as a substitute for professional medical care. Always follow your healthcare professional's instructions. Source: [facility] POWERCHART Document Id: [id number] TECH LEAD documented in this encounter Miscellaneous Notes Miscellaneous - Celi Luna M.D. - 03/27/2014 4:10 PM CST Ambulatory Discharge Medication List [address] [id number] Visit Information Name: LUDA GARCIA [facility] Number: [id number] Visit Date: 03/27/2014 16:10:40 Attending Provider: CELI LUNA MD; CELI LUNA MD Primary Care Provider: AZAR OCHOA MD LUDA GARCIA has been given the following list of medications: Your Medications It is important to take your medications as directed. Use a pill box or chart to help remind you to take your medications. Please let your doctor or nurse know if you have problems taking your medications. Medication/Strength Dose Route Frequency Indications/Special Instructions/Comments/Notes traMADol (traMADol 50 mg oral tablet) 1-2 tab(s) Oral every 6 hours as needed for Pain triamterene-hydrochlorothiazide (triamterene-hydrochlorothiazide 37.5 mg-25 mg oral tablet) 1 tab(s)Oral once a day emollients, topical (Tetrix Cream topical kit) See Instructions apply to skin of hands Daily venlafaxine (Effexor XR 150 mg oral capsule, extended release) 150 mg Oral once a day triamterene-hydrochlorothiazide (triamterene-hydrochlorothiazide 37.5 mg-25 mg oral tablet) 1 tab(s)Oral every week naproxen (naproxen 500 mg oral tablet) 500 mg Oral two times a day with meals Attention: If you have any medications at [...] Signed By: CELI LUNA MD Signed On:27-MAR-2014 16:10:23 Additional Information: Source: [facility] POWERCHART Document Id: [id number] TECH LEAD Miscellaneous - Celi Luna M.D. - 03/27/2014 4:10 PM CST Ambulatory Patient Summary [address] [id number] Visit Information Name: LUDA GARCIA [facility] Number: [id number] Current Date: 03/27/2014 16:10:41 Physicians Attending Provider: CELI LUNA MD; CELI LUNA MD Primary Care Provider: AZAR OCHOA MD LUDA GARCIA has been given the [...] medications. Medication/Strength Dose Route Frequency Indications/Special Instructions/Comments/Notes traMADol (traMADol 50 mg oral tablet) 1-2 tab(s) Oral every 6 hours as needed for Pain triamterene-hydrochlorothiazide (triamterene-hydrochlorothiazide 37.5 mg-25 mg oral tablet) 1 tab(s)Oral once a day emollients, topical (Tetrix Cream topical kit) See Instructions apply to skin of hands Daily venlafaxine (Effexor XR 150 mg oral capsule, extended release) 150 mg Oral once a day triamterene-hydrochlorothiazide (triamterene-hydrochlorothiazide 37.5 mg-25 mg oral tablet) 1 tab(s)Oral every week naproxen (naproxen 500 mg oral tablet) 500 mg Oral two times a day with meals Attention: If you have any medications at [...] Signed By: CELI LUNA MD Signed On:27-MAR-2014 16:10:23 Your Allergies & Intolerances Substance Reaction Symptoms Category Comments No Known Allergies Your Problem List Problem Status Onset Comments Exam Gynecological Normal Active Headache (JARA) NOS Active Obesity NOS Active Anxiety NOS Active Hormone Therapy Status Active Hypertension (HTN) Chronic Active Your Upcoming Appointments Date Time Location Provider No Appointments found Attention: Contact your local Clinic if further appointment detail needed. Myalgias Myalgia is the term for muscle aching, sometimes described by patients as aching all over. It is not a disease but a symptom of an illness, such as the cold or flu. Any illness with a high fever can cause myalgias. Certain chronic or recurring medical illnesses can cause myalgias (such as Lupus and other collagen-vascular diseases). These chronic illnesses usually cause other serious symptoms in addition to the myalgias. Home Care: 1) Rest until you are feeling better. 2) You may use acetaminophen (Tylenol) or ibuprofen (Motrin, Advil) to control pain, unless another medicine was prescribed. [ NOTE : If you have chronic liver or kidney disease or ever had a stomach ulcer or GI bleeding, talk with your doctor before using these medicines.] 3) If you have a high fever, drink plenty of fluids to prevent dehydration (water, soft, drinks, juices, tea, soup, etc.). Follow Up with your doctor or as advised by our staff. If myalgia symptoms do not resolve in a few days or become recurrent, follow up with your doctor for further testing. Get Prompt Medical Attention if any of the following occur: ?? Fever of 100.4?F (38?C) or higher, or as directed by your healthcare provider ?? New joint pains ?? New rash ?? Severe headache, neck pain, drowsiness or confusion ?? [phone] [facility], [address] [place] [address], [place] [address]. All rights reserved. This information is not intended as a substitute for professional medical care. Always follow your healthcare professional's instructions. Your Goals/Additional instructions: Source: [facility] POWERCHART Document Id: [id number] TECH LEAD Miscellaneous - Cam, Yanira T - 03/22/2014 1:[address] CELI LUNA: CONCERNS ABOUT CALLS Document Contains Addenda Addendum by EMPERATRIZ KATZ LPN on 22 March 2014 13:44:51 JAVA TECH LEAD LMTCB Addendum by VANESSA CALIX RN on 22 March 2014 13:20:18 JAVA TECH LEAD From: VANESSA CALIX RN ([facility] Family Medicine Nurse) To: EMPERATRIZ KATZ LPN; Sent: 03/22/2014 13:20:18 JAVA TECH LEAD Subject: FW: DR CELI LUNA: CONCERNS ABOUT CALLS From: YANIRA BAY ([facility]) To: [facility] Medicine Nurse; Cc: [facility]; Sent: 03/22/2014 13:18:35 JAVA TECH LEAD Subject: DR CELI LUNA: CONCERNS ABOUT CALLS Actions: Notify patient- refer to General Message If you need a prescription refill please call your pharmacy. Please allow 3 business days for processing. Call Center Template: ?? May we leave a message for you on this phone? YES ?? How soon do you need a call back? ?? What can I help you with today?LUDA HAS BEEN GETTING SOME PHONE CALLS FROM THE HOSPITAL WHICH HAS HER CONCERNED. SHE WOULD LIKE TO SPEAK TO DR LUNA OR HER NURSE REGARDING THESE CALLS. ?? If Medication Refill: o What is the medication? o What pharmacy do you use? o Have you contacted your pharmacy regarding this request? I will send this information to the appropriate staff member who will look into your concern. If thenurse needs to talk to you he or she will call you back within two hours. Thank you for calling [facility]. Source: [facility] POWERCHART Document Id: [id number] Electronically signed by Ryan, [facility] Legal Cashier [id number] at 08/10/2016 4:27 PM CDT Celi Santiago M.D. - 03/06/2014 11:42 AM CST Results Notification Document Contains Addenda Addendum by EMPERATRIZ KATZ LPN on 25 March 2014 15:59:40 JAVA TECH LEAD Notified pt at her appt of results. Addendum by EMPERATRIZ KATZ LPN on 22 March 2014 13:44:41 JAVA TECH LEAD LMTCB Addendum by EMPERATRIZ KATZ LPN on 21 March 2014 13:18:37 JAVA TECH LEAD LMTCB Addendum by CELI LUNA MD on 21 March 2014 11:35:10 JAVA TECH LEAD From: CELI LUNA MD To: EMPERATRIZ KATZ LPN; Sent: 03/21/2014 11:35:10 JAVA TECH LEAD Show up: 03/21/2014 11:34:00 JAVA TECH LEAD Subject: RE: Results Notification one of the tests required to be drawn in 2 different tubes. i will refer her to physiatry for more eval/Rx. does she feel she needs something stronger for pain control? Addendum by EMEPRATRIZ KATZ LPN on 20 March 2014 11:11:43 JAVA TECH LEAD From: EMPERATRIZ KATZ LPN To: CELI LUNA MD; Sent: 03/20/2014 11:11:43 JAVA TECH LEAD Show up: 03/20/2014 11:11:00 JAVA TECH LEAD Subject: RE: Results Notification Reminding you of this Addendum by CELI LUNA MD on 18 March 2014 17:06:29 JAVA TECH LEAD remind me of this on Addendum by EMPERATRIZ KATZ LPN on 08 March 2014 13:58:32 JAVA TECH LEAD From: EMPERATRIZ KATZ LPN To: CELI LUNA MD; Sent: 03/08/2014 13:58:32 JAVA TECH LEAD Show up: 03/08/2014 13:57:00 JAVA TECH LEAD Subject: RE: Results Notification Notified pt of results of these two tests, she was wondering what the third test you did because they leesa 3 tubes of blood and I wasn't sure which tests she all had done. She also mentioned that she has been doing physical therapy and it doesn't seem to be helping but making it worse. Addendum by EMPERATRIZ KATZ LPN on 08 March 2014 09:56:48 JAVA TECH LEAD LMTCB From: CELI LUNA MD To: EMPERATRIZ KATZ LPN; Sent: 03/06/2014 11:42:57 JAVA TECH LEAD ! Show up: 03/06/2014 11:42:57 JAVA TECH LEAD Subject: Results Notification Actions: Notify patient of results Reminder Comments: blood labs neg for rheumatoid arthritis or other underlying rheumatologic disease. pain secondary [id number]. refer to physiatry Results: Date Result Name Value Ref Range 03/01/2014 11:30 Cyc Cit Pep Ab-Knutson <15.6 units (<20.0 (Negative) - ) 03/01/2014 11:30 LATESHA Hep-2 Sub-Knutson <1:40 (<1:40 (Negative) - ) Source: [facility] POWERCHART Document Id: [id number] Electronically signed by Conversion, 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 Pain all the time for a couple years gotten worse over the last 6 months. Temperature Core : 36.9 DegC(Converted to: 98.4 DegF) Peripheral Pulse Rate : 80 /min Respiratory Rate : 16 /min Heart Rhythm : Regular Systolic Blood Pressure : 142 mmHg (HI) Diastolic Blood Pressure : 78 mmHg NIBP Mean : 99 mmHg BP Location : Right upper extremity Blood Pressure Cuff Size : Regular SpO2 : 97 % Oxygen Therapy : Room air Height : 178 cm(Converted to: 5 ft 10 inch(es), 70 inch(es)) EMPERATRIZ KATZ LPN 03/01/2014 10:32 JAVA TECH LEAD General Info Languages : Salvadorean Is Patient Female and 13-50 no hysterectomy : No EMPERATRIZ KATZ CAR HOP 03/01/2014 10:32 JAVA TECH LEAD Subjective Pain Symptoms : Yes EMPERATRIZ KATZ CAR HOP 03/01/2014 10:32 JAVA TECH LEAD Pain Pain Assessment Grid Pain 1 Location : Other: All over Intensity : 7 EMPERATRIZ KATZ CAR HOP 03/01/2014 10:32 JAVA TECH LEAD Effects of Pain Grid Daily Life : Mild (Comment: Sitting fine, when standing or walking it gets worse [EMPERATRIZ KATZ CAR HOP 03/01/2014 10:32 JAVA TECH LEAD] ) EMPERATRIZ KATZ CAR HOP - 03/01/2014 10:32 JAVA TECH LEAD Dependent Habits Tobacco Use/Currently Using : No Smoking Status : Never smoker EMPERATRIZ KATZ [facility] 03/01/2014 10:32 JAVA TECH LEAD Tobacco Use Grid Last Use : never EMPERATRIZ KATZ CAR HOP 03/01/2014 10:32 JAVA TECH LEAD Alcohol Use : Yes EMPERATRIZ KATZ [facility] 03/01/2014 10:32 JAVA TECH LEAD Caffeine Use Grid Caffeine Use : Current Type : Coffee Frequency : Daily Amount : couple cups daily EMPERATRIZ KATZ [facility] 03/01/2014 10:32 JAVA TECH LEAD ID Screen Travel Within Last 21 Days : No EMPERATRIZ KATZ CAR HOP 03/01/2014 10:32 JAVA TECH LEAD [facility] Document Id: [id number] JAVA TECH LEAD!42 documented in this encounter Plan of Treatment Not on filedocumented as of this encounter Procedures Procedure Name Priority Date/Time Associated Comments Diagnosis ANTINUCLEAR ABS (LATESHA), Routine 03/01/2014 11:30 R esults for this IFA WITH REFLEX TO CON AM JAVA TECH LEAD proce dure are in T DISEASE ABS, S the results section. CYCLIC CITRULLINATED Routine 03/01/2014 11:30 Res ults for this PEPTIDE ABS, IGG, S AM JAVA TECH LEAD procedur e are in the results section. RHEUMATOID FACTOR, S/P Routine 03/01/2014 11:30 R esults for this AM JAVA TECH LEAD procedure are i n the results section. C-REACTIVE PROTEIN Routine 03/01/2014 11:30 Resul ts for this (CRP), S/P AM JAVA TECH LEAD procedure are i n the results section. documented in this encounter Results LATESHA (Antinuclear Antibodies), IFA with Reflex to Connective Tissue Disease Antibodies (03/01/2014 11:30 AM JAVA TECH LEAD) athologist Signature HXANA Hep-2 <1:40 <1:40 POWERCHART Sub-Knutson (Negative) Comment: No Titer performed, LATESHA screen is negati ve. Test Performed by: [place] [address] Slate Mixer: Zoe Vaughn, Ph. D. Specimen (Source) Anatomical Collection Method Collection Time Re ceived Time Location / / Volume Laterality Blood 03/01/2014 11:30 AM JAVA TECH LEAD Celi Luna M.D. LAB BLOOD NON ADD-ON Performing Organization Address City/[facility]/ZIP Code Phon e Number POWERCHART (ABNORMAL) CRP (C-Reactive Protein) (03/01/2014 11:30 AM JAVA TECH LEAD) athologist Signature C-Reactive 11.6 (H) <=4.9 MGL POWERCHART Protein (CRP), S Specimen (Source) Anatomical Collection Method Collection Time Re ceived Time Location / / Volume Laterality Blood 03/01/2014 11:30 AM JAVA TECH LEAD Celi Luna M.D. LAB BLOOD ADD-ON Performing Organization Address City/State/ZIP Code Phon e Number POWERCHART Cyclic Citrullinated Peptide Antibodies, IgG (03/01/2014 11:30 AM JAVA TECH LEAD) [facility] Cyclic <15.6 <20.0 POWERCHART Citrullinated (Negative) Peptide Ab, S UNITS Comment: Test Performed by: [place] [address] Slate Mixer: Del Gil Specimen (Source) Anatomical Collection Method Collection Time Re ceived Time Location / / Volume Laterality Blood 03/01/2014 11:30 AM JAVA TECH LEAD Celi Luna M.D. LAB BLOOD ADD-ON Performing Organization Address City/State/ZIP Code Phon e Number POWERCHART Rheumatoid Factor (03/01/2014 11:30 AM JAVA TECH LEAD) P athologist Signature Rheumatoid 13 <=13 IUML POWERCHART Factor, S Specimen (Source) Anatomical Collection Method Collection Time Re ceived Time Location / / Volume Laterality Blood 03/01/2014 11:30 AM JAVA TECH LEAD Celi Luna M.D. LAB BLOOD ADD-ON Performing Organization Address City/State/ZIP Code Phon e Number POWERCHART documented in this encounter Visit Diagnoses Not on filedocumented in this encounter
--- OUTSIDE RECORDS SUMMARY | 2021-12-03 11:09 | XMS_ITS | Encounter Summary ---
:1955 Author Organization [facility] Address [address] [place] [address] Care Team Providers Name Role Phone Unavailable Primary Care Provider Unavailable Encounter Details Date Type Department Care Team Description 06/13/2015 Hospital Encounter HX NO MAPPING Provider, Historical Social History Tobacco Use Types Packs/Day Years Used Date Smoking Tobacco: Never Assessed Sex Assigned at Date Recorded Not on file documented as of this encounter Medications at Time of Discharge Medication Sig Dispensed Refills Start Date End Date diphenhydrAMINE (BENADRYL) Take 2 capsules by 0 0 03/31/2015 25 mg capsule mouth daily. venlafaxine HCl Take 75 [...]
--- OUTSIDE RECORDS SUMMARY | 2021-12-03 11:09 | XMS_ITS | Encounter Summary ---
:1955 Author Organization [facility] Address [address] [place] [address] Care Team Providers Name Role Phone Unavailable Primary Care Provider Unavailable Encounter Details Date Type Department Care Team Description 08/22/2015 Hospital Encounter HX [facility] INTERNMED Maddie Luna M.D. Social History Tobacco Use Types Packs/Day Years Used Date Smoking Tobacco: Never Assessed Sex Assigned at Date Recorded Not on file documented as of this encounter Last Filed Vital Signs Vital Sign Reading Time Taken Comments Blood Pressure 130/80 08/22/2015 11:28 AM CDT Pulse 73 08/22/2015 11:28 AM CDT Temperature - - Respiratory Rate - - Oxygen Saturation - - Inhaled Oxygen Concentration - - Weight 113 kg (249 lb 1.9 oz) 08/22/2015 11:28 AM CDT Height 176 cm (5' 9.29) 08/22/2015 11:28 AM CDT Body Mass Index 36.48 08/22/2015 11:28 AM CDT documented in this encounter Medications at [...] documented as of this encounter Progress Notes Celi uLna M.D. - 08/22/2015 11:20 AM CDT [id number] CHIEF COMPLAINT/REASON FOR VISIT 1. Establish care. 2. Polymyalgia rheumatica. HISTORY OF PRESENT ILLNESS A pleasant 59-year-old lady, former patient of Dr. Salvador, with history of polymyalgia rheumatica seen by Dr. Nicole schroeder in Rheumatology [facility]. Currently on a prednisone taper with initiation of methotrexate for polymyalgia rheumatica. I have reviewed Dr. Salvador' February 03, 2015note. I reviewed Dr. Nicole De Los Santos's recent note dated June 13, 2015. Plan is for the patient to taper down the prednisone every 4 weeks with follow up when she is on 5 mg per day, and if unable to taper down we will do a trial of methotrexate. Ms Bonilla notes that during the taper down of the prednisone she developed extreme generalized pain and hence a methotrexate trial was started sooner. She does not have a scheduled appointment with Dr. Walker yet. She wonders what else could be prescribed forthe pain. She plans on taking naproxen. No history of GI bleeds. She denies any reflux or upset stomach. She is not on a proton inhibitor or histamine darrell. She is decreasing the prednisone every three weeks as opposed to at every 4 weeks, given that she does not want to be on prednisone. She notesthat she does not like the weight gain or the fluid retention. SYSTEMS REVIEW All systems reviewed. Positive as per HPI. Negative otherwise. Denies unintentional weight loss, night sweats, malaise, headaches, visual changes, fevers, nausea, vomiting, chest pain, shortness of breath, abdominal pain, dysuria. PAST MEDICAL/Surgical HISTORY Polymyalgia rheumatica, essential hypertension, impaired glucose intolerance, hyperlipidemia, obesity BMI 36, work-related hand eczema, hearing loss with tinnitus, chronic left knee pain secondary to degenerative joint disease, estrogen withdrawal symptoms now on estrogen replacement, essential tremors, anxiety, neurosis, cervical spine spurs with a history of neck pain, family history of premature coronary artery disease, benign essential tremor. FAMILY HISTORY Mother with rheumatoid arthritis, was on Remicade. Sister, brother and father with early myocardial infarctions. Denies any other family history of connective tissue or human resources records clerk disease. Two brothers alive. Two sisters alive with one sister . Three sons alive who are healthy. Denies any family history of breast or colon cancer. SOCIAL HISTORY . 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 Nonsmoker. Rare alcohol use. Grandchildren. MEDICATIONS Reconciled at today's visit. ALLERGIES None. PHYSICAL EXAMINATION VITAL SIGNS: Heart rate 73, blood pressure 130/80, 97% on room air. 113 kg BMI 36. GENERAL: Pleasant female, cushingoid facial features. HEART: Regular rate, rhythm. LUNGS: Clear. ABDOMEN: soft, nontender, nondistended. PSYCH: Dysthymic when discussing her issues with prednisone. NEURO: Alert and oriented x3. IMPRESSION/REPORT/PLAN 1. Generalized myalgias with elevated sedimentation rate, presumed polymyalgia rheumatica. On prednisone taper and methotrexate trial. 2. We have received a laboratory monitoring while she is on methotrexate by Dr. Nicole De Los Santos. She will get these labs done today and results then available for Dr. De Los Santos. We discussed other modalitiesfor pain control. At this time the patient would like to elect to do the naproxen and Tylenol. She will try an H2 darrell for stomach protection. We discussed the potential side effects which are common and serious with methotrexate. If she continues to be on long-term prednisone, we will have to discuss putting her on Bactrim for PCP prophylaxis. Celi Luna M.D./pos Electronically Signed By: CELI LUNA MD On: 08/26/2015 09:37 PM Modified by and Electronically Signed by: CELI LUNA MD On: 08/26/2015 09:37 PM Source: [facility] MHSDOLBEYNONRADSYS Document Id: [id number] documented in this encounter Nursing Notes Celi Luna M.D. - 08/22/2015 11:51 AM CDT Ambulatory Patient Education The following Patient Education Materials have been given to the patient: Patient Education Materials: DrugSheets Methotrexate Sodium Oral tablet DrugSheets 385 Methotrexate Sodium Oral tablet What is this medicine? METHOTREXATE (METH oh TREX ate) is a chemotherapy drug. This medicine affects cells that are rapidlygrowing, such as cancer cells and cells in your mouth and stomach. It is used to treat many cancers and other medical conditions. It is used for leukemias, lymphomas, breast cancer, lung cancer, head and neck cancers, and other cancers. This medicine also works on the immune system and is commonly used to treat psoriasis and rheumatoid arthritis. If used for arthritis or psoriasis, the drug is only given once a week. This medicine may be used for other purposes; ask your health care provider or pharmacist if you have questions. What should I tell my health care provider before I take this medicine? They need to know if you have any of these conditions: ?? bleeding or blood disorders ?? HIV-positive or have acquired immunodeficiency syndrome (AIDS) ?? if you frequently drink alcohol-containing drinks ?? infection or weak immune system ?? kidney disease ?? liver disease ?? lung disease ?? stomach ulcers ?? ulcerative colitis ?? an unusual or allergic reaction to methotrexate, other medicines, foods, dyes, or preservatives ?? or trying to get ?? breast-feeding How should I use this medicine? Take this medicine by mouth. Swallow it with a full glass of water. Follow the directions on the prescription label. Do not take your medicine more often than directed. Finish the full course prescribed by your doctor or health hemodialysis patient care specialist. Do not stop taking except on your doctor's advice. If you take methotrexate for rheumatoid arthritis or psoriasis, the dose is given only once a week. Do not take more frequently. Talk to your genetic coordinator regarding the use of this medicine in children. Special care may be needed. Overdosage: If you think you have taken too much of this medicine contact a poison control center [facility] room at once. NOTE: This medicine is only for you. Do not share this medicine with others. What if I miss a dose? If you miss a dose, talk with your doctor or health hemodialysis patient care specialist. Do not take double or extra doses. If you vomit after taking a dose, call your doctor or health hemodialysis patient care specialist for advice. What may interact with this medicine? ?? antibiotics and other medicines for infections ?? aspirin and aspirin-like medicines including bismuth subsalicylate (Pepto-Bismol) ?? NSAIDs, medicines for pain and inflammation, like ibuprofen or naproxen ?? probenecid ?? trimetrexate ?? vaccines This list may not describe all possible interactions. Give your health care provider a list of all the medicines, herbs, non-prescription drugs, or dietary supplements you use. Also tell them if you smoke, drink alcohol, or use illegal drugs. Some items may interact with your medicine. What should I watch for while using this medicine? Visit your doctor or health hemodialysis patient care specialist for checks on your progress. You will need to have regular blood checks. You will also need a chest X-ray before starting the medicine. If you take the medicine for rheumatoid arthritis or psoriasis, you may not see an improvement in your condition for several weeks. Do not drink alcohol-containing drinks while taking this medicine. Both alcohol and the medicine maycause damage to your liver. This medicine may increase your risk of getting an infection. Stay away from people who are sick. To protect your kidneys, drink water or other fluids as directed while you are taking this medicine. Both men and women must use effective control. Use 2 reliable forms of control together.Do not become while taking this medicine. Women should continue to use control until after their first normal menstrual cycle after stopping the medicine. Call your doctor right away if you think you or your partner might be . There is a potential for serious side effects to an unborn child. Talk to your health hemodialysis patient care specialist or pharmacist for more information. Do not breast-feed an while taking this medicine. Men should continue to use control for at least 3 months after stopping the medicine. If you are going to have surgery or dental work, tell your health hemodialysis patient care specialist that you are taking this medicine. This medicine can make you more sensitive to the sun. Keep out of the sun. If you cannot avoid beingin the sun, wear protective clothing and use sunscreen. Do not use sun lamps or tanning beds/booths. What side effects may I notice from receiving this medicine? Side effects that you should report to your doctor or health hemodialysis patient care specialist as soon as possible: ?? bruising, pinpoint red spots on the skin, black, tarry stools, blood in the urine ?? changes in vision ?? diarrhea ?? difficulty breathing or a dry cough ?? mouth and throat ulcers ?? redness, blistering, peeling or loosening of the skin, including inside the mouth ?? skin rash, hives, or itching ?? symptoms of infection like fever or chills, cough, sore throat, pain or difficulty passing urine ?? unusually weak or tired, fainting spells ?? vomiting ?? yellow coloring of skin or eyes Side effects that usually do not require medical attention (report to your doctor or health hemodialysis patient care specialist if they continue or are bothersome): ?? dizziness ?? drowsiness ?? loss of appetite ?? nausea This list may not describe all possible side effects. Call your doctor for medical advice about sideeffects. You may report side effects to FDA at 7-661-PFJ-0874. Where should I keep my medicine? Keep out of the reach of children. Store at room temperature between 20 and 25 degrees C (68 and 77 degrees F). Protect from light. Throw away any unused medicine after the expiration date. NOTE:This sheet is a summary. It may not cover all possible information. If you have questions aboutthis medicine, talk to your doctor, pharmacist, or health care provider. Copyright?? 2013 Gold Standard [facility]: [facility] POWERCHART Document Id: [id number] documented in this encounter Miscellaneous Notes Miscellaneous - Gloria Alba, L.P.N. - 01/02/2016 9:37 AM CDT Riana/Partner - x-ray Document Contains Addenda Addendum by CITLALI GURROLA on January 02, 2016 10:15:08 CDT Spoke with patient. Advised that she should come in to be evaluated. Appointment today with Leilani Montelongo at 130pm. Addendum by CITLALI GURROLA on January 02, 2016 10:00:59 CDT Left message to call back From: GLORIA ALBA LPN To: [facility] Nurse; Sent: 01/02/2016 09:37:58 CDT Subject: Luna/Partner - x-ray Pt calling stating she might have pnuemonia and requesting for chest x-ray. Pt states she is taking medication that would interfer with respiratory. Please advise. CB#[phone] Source: [facility] POWERCHART Document Id: [id number] Electronically signed by Conversion, [facility] Foreign Language Teacher [id number] at 08/07/2016 8:34 PM CDT Miscellaneous - Brooks Bowser - 09/29/2015 9:[address] Celi Luna Document Contains Addenda Addendum by CITLALI GURROLA on September 29, 2015 16:46:52 CDT left message to call back. If patient wants to proceed with the Metoprolol the dosing would be 50mg BID per Dr Ramos. Patient to monitor her blood pressures and pulse rates while on it. Addendum by CELI LUNA MD on September 29, 2015 16:40:57 CDT From: CELI LUNA MD To: CITLALI GURROLA; GLORIA BONILLA Sent: 09/29/2015 16:40:57 CDT Subject: RE: Med Management we can try metoprolol. is she interested? Addendum by CITLALI GURROLA on September 29, 2015 16:19:20 CDT From: CITLALI GURROLA To: CELI LUNA MD; Sent: 09/29/2015 16:19:20 CDT Subject: FW: Med Management Patient had also had a question about the propranolol. Her insurance had changed and she is wondering if there is something cheaper for her hand tremors. Please advise. Addendum by CELI LUNA MD on September 29, 2015 14:59:24 CDT From: CELI LUNA MD Sent: 09/29/2015 14:59:23 CDT Subject: RE:Med Management Approved Order:conjugated estrogens-medroxyPROGESTERone (Prempro 0.45 mg-1.5 mg oral tablet) 1 tab(s) PO Daily Qty: 90 tab(s) Refills: 0 Substitutions Allowed Route To Pharmacy [id number] Signed by CELI LUNA MD 09/29/2015 14:59:19 Addendum by RASHID COOMBS RN on September 29, 2015 10:06:37 CDT From: RASHID COOMBS RN ([facility] Nurse) To: CELI LUNA MD; Cc: CITLALI GURROLA; Sent: 09/29/2015 10:06:37 CDT Subject: Med Management On hold pending signature Order:conjugated estrogens-medroxyPROGESTERone (Prempro 0.45 mg-1.5 mg oral tablet) 1 tab(s) PO Daily Qty: 90 tab(s) Refills: 0 Substitutions Allowed Route To Pharmacy [id number] Prempro originaly prescribed by Dr. Gutierrez. From: BROOKS BOWSER To: [facility] Nurse; Cc: [facility]; Sent: 09/29/2015 09:55:18 CDT Subject: Dr. Celi Luna If you need a prescription refill please call your pharmacy. Please allow 3 business days for processing. Call Center Template: ?? May we leave a message for you on this phone? Yes. ?? How soon do you need a call back? ?? What can I help you with today? Her insurance changed and she was wondering if there is a less expensive medication for her hand tremors then Propanathol? She also asked about getting prescription for Lorenzo Pro but it was prescribed by another doctor. Please call to discuss. ?? If Medication Refill: o What is the medication? o What pharmacy do you use? o Have you contacted your pharmacy regarding this request? I will send this information to the appropriate staff member who will look into your concern. If thenurse needs to talk to you he or she will call you back within two hours. Thank you for calling [facility]. Source: [facility] POWERCHART Document Id: [id number] Electronically signed by Conversion, [facility] Foreign Language Teacher [id number] at 08/07/2016 8:34 PM CDT Miscellaneous - Anette Dodson R.N. - 09/01/2015 12:19 PM CDT Med Management Document Contains Addenda Addendum by CELI LUNA MD on September 01, 2015 12:27:26 CDT From: CELI LUNA MD Sent: 09/01/2015 12:27:26 CDT Subject: RE:Med Management Approved Order:venlafaxine (Effexor XR 150 mg oral capsule, extended release) 1 cap(s) PO Daily Qty: 90 cap(s) Duration: 90 day(s) Refills: 1 Substitutions Allowed Route To Pharmacy - [id number] Signed by CELI LUNA MD 09/01/2015 12:27:23 From: ANETTE DODSON RN ([facility] Medicine Nurse) To: CELI LUNA MD; Sent: 09/01/2015 12:19:23 CDT Subject: Med Management On hold pending signature Order:venlafaxine (Effexor XR 150 mg oral capsule, extended release) 1 cap(s) PO Daily Qty: 90 cap(s) Duration: 90 day(s) Refills: 1 Substitutions Allowed Route To Pharmacy - [id number] Caller is: ( ) Patient ( ) Mother ( ) Father ( ) Spouse ( ) Daughter ( ) Son ( x ) Pharmacy ( ) Other: Provider: Riana Pharmacy: [facility] Name of Medications Needing Refill: Venlafaxine ER 150mg daily Last Refill Date: 08/12/2015 for 90 tabs Additional Information:outside of Rn Protocol Last / Future Appointment: Disposition: ( ) Send to Pharmacy ( ) Call to Pharmacy ( ) 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 - 08/22/2015 12:01 PM CDT Ambulatory Patient Summary [address] [id number] Visit Information Name: GLORIA BONILLA [facility] Number: [id number] Current Date: 08/22/2015 12:01:26 Physicians Attending Provider: CELI LUNA MD Primary Care Provider: CELI LUNA MD GLORIA BONILLA has been given the [...] day Takes along with a 5mg tabletdaily propranolol (Inderal LA 120 mg oral capsule, extended release) 1 cap, Oral, once a day ranitidine (Zantac 150 oral tablet) 1 Tablet(s), Oral, once a day Take if taking naprosyn. Take on empty stomach. New triamterene-hydrochlorothiazide (triamterene-hydrochlorothiazide 37.5 mg-25 mg oral tablet) [...] the Following Medications: Medication list as of 08-22-15 12:01 Attention: If you have any medications at [...] Electronically Signed By: CELI LUNA MD Signed On:22-AUG-2015 12:00:51 Your Allergies & Intolerances Substance Reaction Symptoms [...] local Clinic if further appointment detail needed. 385 Methotrexate Sodium Oral tablet What is this medicine? METHOTREXATE (METH oh TREX ate) is a chemotherapy drug. This medicine affects cells that are rapidlygrowing, such as cancer cells and cells in your mouth and stomach. It is used to treat many cancers and other medical conditions. It is used for leukemias, lymphomas, breast cancer, lung cancer, head and neck cancers, and other cancers. This medicine also works on the immune system and is commonly used to treat psoriasis and rheumatoid arthritis. If used for arthritis or psoriasis, the drug is only given once a week. This medicine may be used for other purposes; ask your health care provider or pharmacist if you have questions. What should I tell my health care provider before I take this medicine? They need to know if you have any of these conditions: ?? bleeding or blood disorders ?? HIV-positive or have acquired immunodeficiency syndrome (AIDS) ?? if you frequently drink alcohol-containing drinks ?? infection or weak immune system ?? kidney disease ?? liver disease ?? lung disease ?? stomach ulcers ?? ulcerative colitis ?? an unusual or allergic reaction to methotrexate, other medicines, foods, dyes, or preservatives ?? or trying to get ?? breast-feeding How should I use this medicine? Take this medicine by mouth. Swallow it with a full glass of water. Follow the directions on the prescription label. Do not take your medicine more often than directed. Finish the full course prescribed by your doctor or health hemodialysis patient care specialist. Do not stop taking except on your doctor's advice. If you take methotrexate for rheumatoid arthritis or psoriasis, the dose is given only once a week. Do not take more frequently. Talk to your genetic coordinator regarding the use of this medicine in children. Special care may be needed. Overdosage: If you think you have taken too much of this medicine contact a poison control center [facility] room at once. NOTE: This medicine is only for you. Do not share this medicine with others. What if I miss a dose? If you miss a dose, talk with your doctor or health hemodialysis patient care specialist. Do not take double or extra doses. If you vomit after taking a dose, call your doctor or health hemodialysis patient care specialist for advice. What may interact with this medicine? ?? antibiotics and other medicines for infections ?? aspirin and aspirin-like medicines including bismuth subsalicylate (Pepto-Bismol) ?? NSAIDs, medicines for pain and inflammation, like ibuprofen or naproxen ?? probenecid ?? trimetrexate ?? vaccines This list may not describe all possible interactions. Give your health care provider a list of all the medicines, herbs, non-prescription drugs, or dietary supplements you use. Also tell them if you smoke, drink alcohol, or use illegal drugs. Some items may interact with your medicine. What should I watch for while using this medicine? Visit your doctor or health hemodialysis patient care specialist for checks on your progress. You will need to have regular blood checks. You will also need a chest X-ray before starting the medicine. If you take the medicine for rheumatoid arthritis or psoriasis, you may not see an improvement in your condition for several weeks. Do not drink alcohol-containing drinks while taking this medicine. Both alcohol and the medicine maycause damage to your liver. This medicine may increase your risk of getting an infection. Stay away from people who are sick. To protect your kidneys, drink water or other fluids as directed while you are taking this medicine. Both men and women must use effective control. Use 2 reliable forms of control together.Do not become while taking this medicine. Women should continue to use control until after their first normal menstrual cycle after stopping the medicine. Call your doctor right away if you think you or your partner might be . There is a potential for serious side effects to an unborn child. Talk to your health hemodialysis patient care specialist or pharmacist for more information. Do not breast-feed an infant while taking this medicine. Men should continue to use control for at least 3 months after stopping the medicine. If you are going to have surgery or dental work, tell your health hemodialysis patient care specialist that you are taking this medicine. This medicine can make you more sensitive to the sun. Keep out of the sun. If you cannot avoid beingin the sun, wear protective clothing and use sunscreen. Do not use sun lamps or tanning beds/booths. What side effects may I notice from receiving this medicine? Side effects that you should report to your doctor or health hemodialysis patient care specialist as soon as possible: ?? bruising, pinpoint red spots on the skin, black, tarry stools, blood in the urine ?? changes in vision ?? diarrhea ?? difficulty breathing or a dry cough ?? mouth and throat ulcers ?? redness, blistering, peeling or loosening of the skin, including inside the mouth ?? skin rash, hives, or itching ?? symptoms of infection like fever or chills, cough, sore throat, pain or difficulty passing urine ?? unusually weak or tired, fainting spells ?? vomiting ?? yellow coloring of skin or eyes Side effects that usually do not require medical attention (report to your doctor or health hemodialysis patient care specialist if they continue or are bothersome): ?? dizziness ?? drowsiness ?? loss of appetite ?? nausea This list may not describe all possible side effects. Call your doctor for medical advice about sideeffects. You may report side effects to FDA at 8-109-XUA-6069. Where should I keep my medicine? Keep out of the reach of children. Store at room temperature between 20 and 25 degrees C (68 and 77 degrees F). Protect from light. Throw away any unused medicine after the expiration date. NOTE:This sheet is a summary. It may not cover all possible information. If you have questions aboutthis medicine, talk to your doctor, pharmacist, or health care provider. Copyright?? 2013 Gold Standard Consider Using Patient Online Services Patient Online [...] if you dont have one. Go to [email or web address] and click on Create Your Account. Then, follow the directions to complete the online form. Youll be asked for your [facility] number which you can find at the top of this document. Your Goals/Additional instructions: Source: [facility] POWERCHART Document Id: [id number] Miscellaneous - Celi Luna M.D. - 08/22/2015 12:01 PM CDT Ambulatory Discharge Medication List [address] [phone] Visit Information Name: GLORIA BONILLA RACHEL [facility] Number: [phone] Visit Date: 08/22/2015 12:01:25 Attending Provider: CELI LUNA MD Primary Care Provider: CELI LUNA MD GLORIA BONILLA has been given the [...] day Takes along with a 5mg tabletdaily propranolol (Inderal LA 120 mg oral capsule, extended release) 1 cap, Oral, once a day ranitidine (Zantac 150 oral tablet) 1 Tablet(s), Oral, once a day Take if taking naprosyn. Take on empty stomach. New triamterene-hydrochlorothiazide (triamterene-hydrochlorothiazide 37.5 mg-25 mg oral tablet) [...] the Following Medications: Medication list as of 08-22-15 12:01 Attention: If you have any medications at [...] Electronically Signed By: CELI LUNA MD Signed On:22-AUG-2015 12:00:51 Additional Information: Source: [facility] POWERCHART Document Id: [id number] Miscellaneous - Citlali Gurrola, R.M.A. - 08/22/2015 11:28 AM CDT Adult Line Supervisor Intake/History Adult Line Supervisor Intake/History Entered On: 08/22/2015 11:30 CDT Performed On: 08/22/2015 11:28 CDT by CITLALI GURROLA [facility] Intake Chief Complaint : Establish care-medication check Sees an MD at [facility] Pulse Rate : 73 /min Systolic Blood Pressure : 130 mmHg Diastolic Blood Pressure : 80 mmHg NIBP Mean : 97 mmHg SpO2 : 97 % Oxygen Therapy : Room air Height : 176 cm(Converted to: 5 ft 9 inch(es), 69 inch(es)) Actual Weight : 113.0 kg(Converted to: 249 lb 2 oz) Weight Source : Standing scale Dosing Weight Clinic : 113 kg Clinic BSA : 2.35 Body Mass Index : 36.48 kg/m2 CITLALI GURROLA - 08/22/2015 11:28 CDT General Info Information Given By : Patient Languages : Portuguese Is Patient Female and 13-50 no hysterectomy : No CITLALI GURROLA - 08/22/2015 11:28 CDT Subjective Pain Symptoms : Yes CITLALI GURROLA - 08/22/2015 11:28 CDT Pain Scale Pain Scale Verbal 0-10 : Open CITLALI GURROLA - 08/22/2015 11:28 CDT Pain Pain Assessment Grid Pain 1 Location : Other: all over body Laterality : Bilateral Intensity : 7 CITLALI GURROLA - 08/22/2015 11:28 CDT Dependent Habits Exposure to Tobacco Smoke : Other: never Smoking Status : Never smoker Tobacco 2A : No Tobacco Use/Currently Using : No Tobacco Use/Last 30 Days : No Tobacco Use/Last 12 months : No CITLALI GURROLA [facility] - 08/22/2015 11:28 CDT Caffeine Use Grid Caffeine Use : Current Type : Coffee Frequency : Daily Amount : couple cups daily CITLALI GURROLA [facility] - 08/22/2015 11:28 CDT Recreational Drug Use Grid Drug Use : None CITLALI GURROLA [facility] - 08/22/2015 11:28 CDT Source: [employer] Document Id: [id number] CDT!45 documented in this encounter Plan of Treatment Not on filedocumented as of this encounter Visit Diagnoses Not on filedocumented in this encounter Additional Health Concerns Assessment Noted Time PHQ-9 Depression Total Score: 2 07/15/2014 11:54 AM CD T documented as of this encounter
--- OUTSIDE RECORDS SUMMARY | 2021-12-03 11:09 | XMS_ITS | Encounter Summary ---
:1955 Author Organization [facility] Address [address] [place] [address] Care Team Providers Name Role Phone Unavailable Primary Care Provider Unavailable Encounter Details Date Type Department Care Team Description 10/11/2014 Hospital Encounter HX [facility] Maninder Lowe M.D. Social History Tobacco Use Types Packs/Day [...] - - Height 178 cm (5' 10.08) 10/11/2014 1:44 PM CDT Body Mass Index - - documented in this encounter Miscellaneous Notes Miscellaneous - Maninder Ochoa M.D. - 10/13/2014 9:54 AM CDT Results Notification Document Contains Addenda Addendum by DEVON HERNANDEZ LPN on 2014 9:08 CDT Please call pt at # [phone] okay to leave a detailed message. Addendum by DEVON HERNANDEZ LPN on 2014 9:07 CDT Pt calling today to state that there was confusion regarding her appt today 11/04/14 at 10:45am. Shethought that this was just a lab appt and was not aware that she was to see . She is not able to make this appt but has rescheduled for 11/25/14 at 10:45am. She would like an order placed today to have a lab appt only to check SED rate. When this has been ordered, please contact pt so that she can schedule a lab only visit for today. Addendum by CITLALI GURROLA on 15 October 2014 11:43:17 CDT Patient notified of below. Addendum by MANINDER OCHOA MD on 15 October 2014 10:54:14 CDT From: MANINDER OCHOA MD To: CITLALI GURROLA; Sent: 10/15/2014 10:54:14 CDT Show up: 10/15/2014 10:52:00 CDT Subject: RE: Results Notification It appears she's having a re-emergence of her polymyalgia rheumatica symptoms. Have her increase Prednisone to 5 mg bid. Will recheck Sed Rate at the f/u visit. Addendum by CITLALI GURROLA on 14 October 2014 15:39:37 CDT From: CITLALI GURROLA To: MANINDER OCHOA MD; Sent: 10/14/2014 15:39:37 CDT Show up: 10/14/2014 15:37:00 CDT Subject: RE: Results Notification Patient was notified of results. She states that she is now in more pain than when she started on the prednisone. She is wondering what could be causing the elevation in her sed rate. What is the next step. She is currently taking 4mg BID. She is scheduled for a follow up with you on 11/04/14. Addendum by CITLALI GURROLA on 14 October 2014 14:25:20 CDT Left message to call back From: MANINDER OCHOA MD To: CITLALI GURROLA; Sent: 10/13/2014 09:54:52 CDT ! Show up: 10/13/2014 09:54:52 CDT Subject: Results Notification Actions: Notify patient-refer to General Message Reminder Comments: Is she having any recurrence of symptoms of her polymyalgia rheumatica? Results: Date Result Name Ind Value Ref Range 10/11/2014 13:55 Sed Rate (H) 37 mm/hr (0 - 29) Source: [facility] POWERCHART Document Id: [id number] documented in this encounter Plan of Treatment Not on filedocumented as of this encounter Procedures Procedure Name Priority Date/Time Associated Comments Diagnosis SEDIMENTATION RATE, B Routine 10/11/2014 1:55 PM Results for this CDT procedure are i n the results section. documented in this encounter Results (ABNORMAL) Sedimentation Rate (10/11/2014 1:55 PM CDT) [facility] gist Method Time Signature Sedimentation 37 (H) 0 - 29 POWERCHART Rate, B MMHR Specimen (Source) Anatomical Collection Method Collection Time Re ceived Time Location / / Volume Laterality Blood 10/11/2014 1:55 PM CDT Maninder Ochoa M.D. LAB BLOOD ADD-ON Performing Organization Address City/State/ZIP Code Phon e Number POWERCHART documented in this encounter Visit Diagnoses Not on filedocumented in this encounter Additional Health Concerns Assessment Noted Time PHQ-9 Depression Total Score: 2 07/15/2014 11:54 AM CD T documented as of this encounter
--- OUTSIDE RECORDS SUMMARY | 2021-12-03 11:09 | XMS_ITS | Encounter Summary ---
:1955 Author Organization [facility] Address [address] [place] [address] Care Team Providers Name Role Phone Unavailable Primary Care Provider Unavailable Encounter Details Date Type Department Care Team Description 02/03/2015 Hospital Encounter HX [facility] Francia Ochoa M.D. Social History Tobacco Use Types Packs/Day Years Used Date Smoking Tobacco: Never Assessed Sex Assigned at Date Recorded Not on file documented as of this encounter Last Filed Vital Signs Vital Sign Reading Time Taken Comments Blood Pressure 142/76 02/03/2015 11:19 AM [facility] Pulse 78 02/03/2015 11:19 AM [facility] Temperature - - Respiratory Rate - - Oxygen Saturation - - Inhaled Oxygen Concentration - - Weight 115 kg (253 lb 4.9 oz) 02/03/2015 11:19 AM [facility] Height 178 cm (5' 10.08) 02/03/2015 11:19 AM [facility] Body Mass Index 36.26 02/03/2015 11:19 AM [facility] documented in this encounter Progress Notes Maninder Ochoa M.D. - 02/03/2015 11:13 AM CST [id number] CHIEF COMPLAINT/REASON FOR VISIT Two month problem focused followup. PAST MEDICAL/SURGICAL HISTORY Medical problem list: 1. Essential hypertension. 2. Impaired glucose tolerance. 3. Dyslipidemia (calcium score is November so no medical treatment). 4. Overweight. 5. Hand eczema, work-related. 6. Hearing loss with tinnitus. 7. Chronic left knee pain presumably on a degenerative joint disease basis. 8. Polymyalgia rheumatica. 9. Estrogen withdrawal symptoms now on estrogen supplement. 10. Essential tremor. 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 12. Cervical spine spurs with a history of neck pain. 13. Family history of premature coronary artery disease. HISTORY OF PRESENT ILLNESS At the patient's visit with me on 11/25/2014, decision was made to maintain her on 5 mg of prednisone 3 times a day, even though her polymyalgia rheumatica symptoms had improved to a degree. Since then, she had another sed rate that showed improvement down to 29 on 01/31/2015. She is totally asymptomatic in regard to her proximal myalgias and has not had any other problems recently. She says she feels well but is rather distressed about her weight gain that has occurred since her last visit. 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 Hot flashes are coming under control with the recent re-addition of Prempro. She remains on Effexor probably at a dose of 150 mg daily. At some point along the way, I tried to increase it to 225 mg, but the patient says that she is not taking the 2nd pill. A couple of weeks ago she had episode of heavy anterior chest discomfort. She took aspirin, and the discomfort resolvedafter about 45 minutes. She cannot recall having that type of discomfort prior to that and has not had any since then. She did not get diaphoretic, dyspneic, or have frequent eructations associated with that episode. The patient's sister had a massive heart attack at age 58, the same age that the patient is now. Back in November of 2013, the patient had a heart scan up at [place], and that showed a calcium score of 0. That is why her dyslipidemia is not being treated with a statin agent at the present time (and the statin agent would probably aggravate the myalgias or at least confuse the issue in that regard). Patient has not been having any polyuria or polydipsia. She does not check her blood sugars at home. Her last A1c several months ago was 5.8%. PHYSICAL EXAMINATION VITAL SIGNS: Weight 114.9 kg which is up 5.4 kg since I saw her in October, however, up just 3.0 kg since her visit with me in November. Height 178 cm. Body mass index 36.3 kg/m2. Blood pressure 154/86when I checked it. The intake reading 142/76. Heart rate 78 and regular, no extrasystoles. Respirations even and unlabored at a normal rate with oxygen saturation 97% on room air. GENERAL: This is an alert, oriented, pleasant, and appropriate, substantially overweight, middle-aged, female. HEENT: Head: Normocephalic with no evidence of previous trauma and no retro or micrognathia. PERRL. EOMI with no nystagmus. No scleral icterus. Palpebral conjunctivae with good color. Oral cavity adequately hydrated. No lesions noted with qawalangin dentition in satisfactory repair. No evidence of thrush.Grade 4 Mallampati index with tongue protruding in the midline. No facial droop. NECK: Supple. No increased JVP. Negative HJR. No thyromegaly or thyroid nodules. No carotid bruits or decreased carotid pulsations. No submandibular, cervical, or supraclavicular lymphadenopathy or mass. LUNGS: Clear to percussion and auscultation with symmetric and satisfactory air movement. CARDIAC: Exam without pathologic sounds or LV lift. ABDOMEN: Has normal bowel sounds, is nondistended, and is generally soft and nontender with no organomegaly or mass. EXTREMITIES: No leg or ankle edema. DIAGNOSTIC DATA: Hemoglobin 13.1, creatinine 0.7, BUN 15, GFR greater than 60. A1c 6.3%. TSH came back in the normal range. IMPRESSION/REPORT/PLAN 1. Polymyalgia rheumatica with the patient symptomatically quiescent and with recent repeat sed rateshowing improvement. 2. Benign essential tremor at least partially controlled by propranolol. 3. Estrogen withdrawal symptoms coming under control with re-addition of Prempro. 4. Essential hypertension with white coat elevation at today's visit. 5. Recent episode of chest pain probably on a cardiac basis, though in view of the family history, Ithink we need to further assess for coronary artery disease of clinical significance in this patient. PLAN: 1. Proceed with exercise radionucleotide stress test. 2. Reduce prednisone to 5 mg in the morning and mid day, 2.5 mg in the evening. Recheck sed rate after doing this for a month, and if the patient remains free of symptoms and the sed rate stays below 35, we can probably continue to taper by 2.5 mg decrements until she is down to 5 mg daily. After thatwould decrease by 1 mg decrement at monthly intervals. Patient will remain on the other medications as before. Note that she only takes the diuretic about every 2 weeks. 3. Patient indicated today that she would like to continue to see Internal Medicine for her primary care and specifically mentioned the name of Celi Luna M.D., who she apparently saw at one point in the past. 4. On return in 3 months, she should have her A1c rechecked, and if it climbs further, she is probably going to benefit from the institution of oral hypoglycemic medication. Hopefully, with reducing her prednisone, the impaired glucose metabolism problem will improve. Maninder Ochoa M.D./pos Electronically Signed By: MANINDER OCHOA MD On: 02/04/2015 02:19 PM Source: [facility] [id number] Document Id: [id number] [facility] [facility] documented in this encounter Miscellaneous Notes Telephone Encounter - Edda Hoffman, RTrino - 09/30/2015 8:11 AM CDT FW: FW: medication refill request-Dr. Luna (urgent) Document Contains Addenda Addendum by EDDA HOFFMAN RN on September 30, 2015 15:11:20 CDT From: EDDA HOFFMAN RN ([facility] Medicine Nurse) To: GLORIA BONILLA Sent: 09/30/2015 15:11:20 CDT Subject: FW: FW: medication refill request-Dr. Luna (urgent) Manuel Castro, The best route to figure out your what medication alternative to prempro your insurance best covers,would be to call them and see if they can give you some names of medications that are substitutes and are better covered. Thank you, Edda Hoffman RN Addendum by CELI LUNA MD on September 30, 2015 15:05:47 CDT From: CELI LUNA MD To: [facility] Medicine Nurse; Sent: 09/30/2015 15:05:47 CDT Subject: RE: FW: medication refill request-Dr. Luna (urgent) She needs to check with her insurance company. From: EDDA HOFFMAN RN ([facility] Nurse) To: CELI LUNA MD; Sent: 09/30/2015 08:11:52 CDT Subject: FW: FW: medication refill request-Dr. Luna (urgent) Is there a less expensive alternative for prempro? From: GLORIA BONILLA To: [facility] Nurse Sent: 09/29/2015 07:11 p.m. CDT Subject: RE: FW: medication refill request-Dr. Luna (urgent) Hi, I did picker and sorter load and unload the new med that Dr. Luna recommended in place of the more expensive med for my hand shaking. I think you misunderstood me on my Prempro. Want to know if there is something less expensive because of my insurance problem. I do not wish to refill the prempro. If I have to, I will go off it compleatly. Thank you, Gloria Addendum by EDDA HOFFMAN RN on 29 April 2015 13:03:37 [employer] [employer] [facility] From: EDDA HOFFMAN RN ([facility] Nurse) To: GLORIA BONILLA Sent: 04/29/2015 13:03:37 [employer] [employer] [facility] Subject: FW: medication refill request-Dr. Luna (urgent) Addendum by CELI LUNA MD on 29 April 2015 11:49:55 [facility] [employer] [facility] From: CELI LUNA MD To: [facility] Nurse; GLORIA BONILLA Sent: 04/29/2015 11:49:55 [employer] [employer] [facility] Subject: RE: medication refill request-Dr. Luna (urgent) I will read those notes. However, taking prednisone loan originator has a number of side effects down the road and I want to ensure that youre aware of all of them. We would also need to discuss prophylaxis againts a particular pneumonia bug. Thanks. Addendum by EDDA HOFFMAN RN on 28 April 2015 15:20:19 [employer] [employer] [facility] From: EDDA HOFFMAN RN ([facility] Medicine Nurse) To: CELI LUNA MD; Sent: 04/28/2015 15:20:19 [employer] [facility] Subject: FW: medication refill request-Dr. Luna (urgent) Addendum by YANIRA BAY on 28 April 2015 11:38:20 [employer] [employer] [facility] From: YANIRA BAY ([facility]) To: [facility] Nurse; Cc: [facility]; Sent: 04/28/2015 11:38:20 [employer] [employer] [facility] Subject: FW: medication refill request-Dr. Luna (urgent) Addendum by YANIRA BAY on 28 April 2015 11:38:10 [facility] [employer] [facility] GLORIA HAS BEEN SEEING DR DE LOS SANTOS ([facility]) IN [facility] PER REQUEST OF DR OCHOA. SHE HAS SEEN THIS DOCTOR TWICE IN THE PAST TWO WEEKS SO GLORIA WOULD LIKE TO HAVE DR ALATORRE ACCESS THOSE RECORDS SO SHE IS FULLY INFORMED OF WHAT IS GOING ON. IF DR LUNA HAS ANY QUESTIONS OR CONCERNS THEN PLEASE CALL GLORIA. Addendum by CELI LUNA MD on 25 April 2015 16:00:50 [facility] have her see me within a month. thanks Addendum by CELI LUNA MD on 25 April 2015 16:00:34 [employer] [employer] [facility] Approved with modifications: Order:predniSONE (predniSONE 5 mg oral tablet) 1 tab(s) PO Daily Qty: 30 tab(s) Refills: 0 Substitutions Allowed Route To Pharmacy - [id number] Signed by CELI LUNA MD 04/25/2015 16:00:11 Addendum by KHRIS MARTINEZ LPN on 25 April 2015 14:36:40 [employer] [facility] From: KHRIS MARTINEZ LPN ([facility] Medicine Nurse) To: CELI LUNA MD; Sent: 04/25/2015 14:36:40 [employer] [facility] Subject: Med Management On hold pending signature Order:predniSONE (predniSONE 5 mg oral tablet) 1 tab(s) PO Daily Qty: 90 tab(s) Refills: 3 Substitutions Allowed Route To Pharmacy - [id number] Addendum by SELENA DUEÑAS RN on 25 April 2015 14:03:42 [employer] [employer] [facility] From: SELENA DUEÑAS RN To: [facility] Nurse; Sent: 04/25/2015 14:03:42 [employer] [facility] Subject: FW: medication refill request-Dr. Luna (urgent) Unable to address this per protocol. Please advise, thank you. From: YANIRA BAY ([facility]) To: SELENA DUEÑAS RN; Cc: [facility]; Sent: 04/25/2015 13:17:02 [employer] [facility] Subject: medication refill request-Dr. Luna (urgent) Actions: Notify patient- refer to General Message If you need a prescription refill please call your pharmacy. Please allow 3 business days for processing. Call Center Template: May we leave a message for you on this phone? yes How soon do you need a call back? What can I help you with today?Gloria is requesting a refill of her 5mg Prednisone. She has no more left. please call with questions or concerns. If Medication Refill: oWhat is the medication?prednisone 5mg oWhat pharmacy do you use?[facility] in [facility] you contacted your pharmacy regarding this request? I will send this information to the appropriate staff member who will look into your concern. If thenurse needs to talk to you he or she will call you back within two hours. Thank you for calling [facility]. Source: [facility] POWERCHART Document Id: [id number] Electronically signed by Ryan [facility] Radio Interference Trouble Shooter [id number] at 08/09/2016 5:51 AM CDT Miscellaneous - Anette Dodson R.N. - 07/21/2015 9:44 AM CDT Med Management:Venlafaxine Document Contains Addenda Addendum by CELI LUNA MD on July 23, 2015 11:00:40 CDT From: CELI LUNA MD Sent: 07/23/2015 11:00:40 CDT Subject: RE:Med Management:Venlafaxine Approved Order:venlafaxine (Effexor XR 75 mg oral capsule, extended release) 1 cap(s) PO Daily take with effexor XR 150 mg pill for total dose 225 mg per day Qty: 90 cap(s) Refills: 0 Substitutions Allowed Route To Pharmacy - [id number] Signed by CELI LUNA MD 07/23/2015 11:00:34 From: ANETTE DODSON RN ([facility] Medicine Nurse) To: CELI LUNA MD; Sent: 07/21/2015 09:44:55 CDT Subject: Med Management:Venlafaxine On hold pending signature Order:venlafaxine (Effexor XR 75 mg oral capsule, extended release) 1 cap(s) PO Daily take with effexor XR 150 mg pill for total dose 225 mg per day Qty: 90 cap(s) Refills: 0 Substitutions Allowed Route To Pharmacy - [id number] Caller is: ( ) Patient ( ) Mother ( ) Father ( ) Spouse ( ) Daughter ( ) Son ( x ) Pharmacy ( ) Other: Provider: R[facility] Pharmacy: [place] Name of Medications Needing Refill: Venlafaxine ER 75mg daily Last Refill Date: 04/21/2015 Additional Information:Outside of RN protocol. Last prescribed by Dr. Ochoa Last / Future Appointment:06/30/15 with Brenda Disposition: ( x) Send to Pharmacy ( ) Call to Pharmacy ( ) Patient will picker and sorter load and unload Script ( ) Mail Rx to Patient Source: [facility] POWERCHART Document Id: [id number] Electronically signed by Ryan, [facility] Radio Interference Trouble Shooter [id number] at 08/09/2016 5:51 AM CDT Telephone Encounter - Daria Hernandez Matt Gutierrez.P.N. - 05/23/2015 11:[address] Luna/update Document Contains Addenda Addendum by CELI LUNA MD on May 23, 2015 12:53:48 [facility] Not Approved: Order:C-Reactive Protein Cardiac-Knutson 90108 (CRP High Sensitivity-Knutson 71056) Details: Routine, 05/24/2015 0:00 [facility] [employer] [facility], * Next Available, Polymyalgia Rheumatica (PMR) Incorrect Order Signed by CELI LUNA MD Addendum by CELI LUNA MD on May 23, 2015 12:21:04 [employer] [facility] regular CRP, not heart crp Addendum by CELI LUNA MD on May 23, 2015 12:20:51 [employer] [facility] Approved Order:Sedimentation Rate (ESR) Details: Routine, 05/24/2015 0:00 [employer] [facility], * Next Available, Polymyalgia Rheumatica (PMR) Signed by CELI LUNA MD 05/23/2015 12:20:50 Addendum by ANETTE DODSON RN on May 23, 2015 11:45:03 [employer] [facility] From: ANETTE DODSON RN ([facility] Medicine Nurse) To: CELI LUNA MD; Sent: 05/23/2015 11:45:03 [employer] [employer] [facility] Subject: FW: Dr Luna/update On hold pending signature Order:Sedimentation Rate (ESR) Details: Routine, 05/24/2015 0:00 [facility] [facility], * Next Available, Polymyalgia Rheumatica (PMR) On hold pending signature Order:C-Reactive Protein Cardiac-Knutson [id number] (CRP High Sensitivity-Knutson 33934) Details: Routine, 05/24/2015 0:00 [employer] [facility], * Next Available, Polymyalgia Rheumatica (PMR) Addendum by CELI LUNA MD on May 23, 2015 11:40:37 [employer] [facility] From: CELI LUNA MD To: [facility] Nurse; Sent: 05/23/2015 11:40:37 [employer] [facility] Subject: RE: Dr Luna/alexander pls proxy CRP/ESR Addendum by ANETTE DODSON RN on May 23, 2015 11:35:14 [employer] [facility] From: ANETTE DODSON RN ([facility] Nurse) To: CELI LUNA MD; Sent: 05/23/2015 11:35:14 [employer] [facility] Subject: FW: Dr Luna/update From: DARIA HERNANDEZ LPN To: [facility] Nurse; Sent: 05/23/2015 11:31:19 [employer] [employer] [facility] Subject: Dr Luna/update Caller is: ( x ) Patient ( ) Mother ( ) Father ( ) Spouse ( ) Daughter ( ) Son ( ) Pharmacy ( ) Other: Physician: Dr Luna Patient MRN #: Reason for Call: Message: Patient saw Dr Luna 03/2014, Dr Ochoa and utilization coordinator Dr Lorena De Los Santos ([facility])since. She was advised that she needs to (re)establish care with Dr Luna, is requesting this: She is to have repeat CRP and sed rate by 05/28/[address] De Los Santos, she would like Dr Luna to place those orders. She has made an appt with Dr Luna on 06/13/15 to review labs, also has a letter from Dr De Los Santos she will bring. Please let her know if Dr Luna is agreeable with this-callback # [phone], message ok. Dr Luna should also be able to review Dr De Los Santos's notes in [facility]. thanks Advice/Action: Source used: ( ) Verbalizes understanding [...] back cell phone number ( ) Source: [facility] POWERCHART Document Id: [id number] Electronically signed by Ryan [facility] Radio Interference Trouble Shooter [id number] at 08/09/2016 5:51 AM CDT Miscellaneous - Anette Dodson R.N. - 05/22/2015 11:12 AM CST Med Management:Propranolol Document Contains Addenda Addendum by CELI LUNA MD on May 22, 2015 12:58:33 [employer] [facility] From: CELI LUNA MD Sent: 05/22/2015 12:58:32 [employer] [facility] Subject: RE:Med Management:Propranolol Approved Order:propranolol (Inderal LA 120 mg oral capsule, extended release) 1 cap(s) PO Daily Qty: 30 cap(s) Refills: 3 Substitutions Allowed Route To Pharmacy [id number] Signed by CELI LUNA MD 05/22/2015 12:58:29 From: ANETTE DODSON RN ([facility] Medicine Nurse) To: CELI LUNA MD; Sent: 05/22/2015 11:12:11 [employer] [facility] Subject: Med Management:Propranolol Submitted: Order:Return Visits Details: Signed by ANETTE DODSON RN Submitted: Order:Return Visit Fam Med 60 Min former [place] Details: * Next Available, Send to Scheduling, med check and to establish care, 05/23/2015 0:00 [facility],[place] pt, [facility] Signed by ANETTE DODSON RN On hold pending signature Order:propranolol (Inderal LA 120 mg oral capsule, extended release) 1 cap(s) PO Daily Qty: 30 cap(s) Refills: 3 Substitutions Allowed Route To Pharmacy [id number] Caller is: ( ) Patient ( ) Mother ( ) Father ( ) Spouse ( ) Daughter ( ) Son ( ) Pharmacy ( ) Other: Provider: Riana Ochoa [place]acy: [place] Name of Medications Needing Refill:Propranolol Er 120mg daily Last Refill Date: 04/16/15 Additional Information:Former [place] pt. has not established care with new provider. Pt did see you once before. Last / Future Appointment:02/03/15 with [place] Disposition: ( x ) Send to Pharmacy ( ) Call to Pharmacy ( ) Patient will picker and sorter load and unload Script ( ) Mail Rxto Patient Source: [facility] POWERCHART Document Id: [id number] Electronically signed by Ryan [facility] Radio Interference Trouble Shooter [id number] at 08/09/2016 5:51 AM CDT Miscellaneous - Yanira Bay - 04/25/2015 1:17 PM CST medication refill request-Dr. Luna (urgent) Document Contains Addenda Addendum by EDDA HOFFMAN RN on 29 April 2015 13:03:37 [employer] DEAN From: EDDA HOFFMAN RN ([facility] Nurse) To: GLORIA BONILLA Sent: 04/29/2015 13:03:37 [employer] [facility]AN Subject: FW: medication refill request-Dr. Luna (urgent) Addendum by CELI LUNA MD on 29 April 2015 11:49:55 [employer] [facility]AN From: CELI LUNA MD To: [facility] Nurse; GLORIA BONILLA Sent: 04/29/2015 11:49:55 [employer] [facility]AN Subject: RE: medication refill request-Dr. Luna (urgent) I will read those notes. However, taking prednisone loan originator has a number of side effects down the road and I want to ensure that you're aware of all of them. We would also need to discuss prophylaxisagaints a particular pneumonia bug. Thanks. Addendum by EDDA HOFFMAN RN on 28 April 2015 15:20:19 [employer] DEAN From: EDDA HOFFMAN RN ([facility] Nurse) To: CELI LUNA MD; Sent: 04/28/2015 15:20:19 [employer] [facility]AN Subject: FW: medication refill request-Dr. Luna (urgent) Addendum by YANIRA BAY on 28 April 2015 11:38:20 [employer]UD[facility] [employer] DEAN From: YANIRA BAY ([facility]) To: [facility] Medicine Nurse; Cc: [facility]; Sent: 04/28/2015 11:38:20 [employer] DEAN Subject: FW: medication refill request-Dr. Luna (urgent) Addendum by YANIRA BAY on 28 April 2015 11:38:10 [employer] [employer] [facility]AN GLORIA HAS BEEN SEEING DR DE LOS SANTOS ([facility]) IN [facility] PER REQUEST OF DR OCHOA. SHE HASSEEN THIS DOCTOR TWICE IN THE PAST TWO WEEKS SO GLORIA WOULD LIKE TO HAVE DR ALATORRE ACCESS THOSE RECORDS SO SHE IS FULLY INFORMED OF WHAT IS GOING ON. IF DR LUNA HAS ANY QUESTIONS OR CONCERNS THEN PLEASE CALL GLORIA. Addendum by CELI LUNA MD on 25 April 2015 16:00:50 [employer]UD[facility] [employer] DEAN have her see me within a month. thanks Addendum by CELI LUNA MD on 25 April 2015 16:00:34 [employer] [facility]AN Approved with modifications: Order:predniSONE (predniSONE 5 mg oral tablet) 1 tab(s) PO Daily Qty: 30 tab(s) Refills: 0 Substitutions Allowed Route To Pharmacy - [id number] Signed by CELI LUNA MD 04/25/2015 16:00:11 Addendum by KHRIS MARTINEZ LPN on 25 April 2015 14:36:40 [employer] [facility]AN From: KHRIS MARTINEZ LPN ([facility] Nurse) To: CELI LUNA MD; Sent: 04/25/2015 14:36:40 [employer] [facility]AN Subject: Med Management On hold pending signature Order:predniSONE (predniSONE 5 mg oral tablet) 1 tab(s) PO Daily Qty: 90 tab(s) Refills: 3 Substitutions Allowed Route To Pharmacy - [id number] Addendum by SELENA DUEÑAS RN on 25 April 2015 14:03:42 [employer]UD[employer] DEAN From: SELENA DUEÑAS RN To: [facility] Nurse; Sent: 04/25/2015 14:03:42 [employer] [facility]AN Subject: FW: medication refill request-Dr. Luna (urgent) Unable to address this per protocol. Please advise, thank you. From: YANIRA BAY ([facility]) To: SLEENA DUEÑAS RN; Cc: [facility]; Sent: 04/25/2015 13:17:02 [employer] [facility]AN Subject: medication refill request-Dr. Luna (urgent) Actions: Notify patient- refer to General Message If you need a prescription refill please call your pharmacy. Please allow 3 business days for processing. Call Center Template: ?? May we leave a message for you on this phone? yes ?? How soon do you need a call back? ?? What can I help you with today?Gloria is requesting a refill of her 5mg Prednisone. She has no more left. please call with questions or concerns. ?? If Medication Refill: o What is the medication?prednisone 5mg o What pharmacy do you use?[facility] in [place] o Have you contacted your pharmacy regarding this request? I will send this information to the appropriate staff member who will look into your concern. If thenurse needs to talk to you he or she will call you back within two hours. Thank you for calling [facility]. Source: [facility] POWERCHART Document Id: [id number] Electronically signed by [facility] Radio Interference Trouble Shooter [id number] at 08/09/2016 5:51 AM CDT Miscellaneous - Anette Dodson R.N. - 04/07/2015 4:18 PM CST Med Management:Prednisone Document Contains Addenda Addendum by ANETTE DODSON RN on 09 April 2015 08:32:54 [employer] DEAN she is currently taking 12mg daily Addendum by WILD MCGRATH RN on 08 April 2015 10:48:14 [employer]UD[employer] DEAN LMTRC to confirm pt dose of prednisone. Addendum by MANINDER OCHOA MD on 08 April 2015 09:56:57 STUDENT LIFE DEAN From: MANINDER OCHOA MD Sent: 04/08/2015 09:56:57 [facility]AN Subject: RE:Med Management:Prednisone Approved Order:predniSONE (predniSONE 1 mg oral tablet) 1 tab(s) PO Daily Qty: 30 tab(s) Refills: 1 Substitutions Allowed Route To Pharmacy - [id number] Signed by MANINDER OCHOA MD 04/08/2015 09:56:50 From: ANETTE DODSON RN ([facility] Nurse) To: MANINDER OCHOA MD; Sent: 04/07/2015 16:18:12 [facility] DEAN Subject: Med Management:Prednisone On hold pending signature Order:predniSONE (predniSONE 1 mg oral tablet) 1 tab(s) PO Daily Qty: 30 tab(s) Refills: 1 Substitutions Allowed Route To Pharmacy - [id number] Caller is: ( x ) Patient ( ) Mother ( ) Father ( ) Spouse ( ) Daughter ( ) Son ( x ) Pharmacy ( ) Other: Provider: [place] [facility]: [place] Name of Medications Needing Refill:Prednisone 1mg Last Refill Date: Additional Information:Pt saw Rheumatology on 03/31/15. Pt will be cutting prednisone to total of 11mg daily. She is currently ofn 12.5mg daily. Pt only has 5mg tabs of Prednisone. Pt also was wondering why the prednisone was sppread through out the day instead of taking it all at once. Her Chief Of Harbor Patrol asked the pt this. Last / Future Appointment: Disposition: ( ) Send to Pharmacy ( ) Call to Pharmacy ( ) Patient will picker and sorter load and unload Script ( ) [facility] Rx to [facility] P[facility] Document Id: [id number] Miscellaneous - Maninder Ochoa M.D. - 03/18/2015 12:00 AM CST [id number] March 18, 2015 [facility] DR. ASAEL HENRY - RHEUMATOLOGY [address] [place] [address] RE: Gloria Bonilla : [address] Henry: The purpose of this letter is to introduce to you my patient, Gloria Bonilla, who is a 59-year-old female who will be seeing you on March 24, 2015, at 10:30 a.m. regarding her rheumatologic concerns. She presented in February of 2014 with generalized achiness, morning stiffness, and general malaise. Her workup at that time included normal CCP, JEAN, and rheumatoid factor. Her CRP was mildly elevated at 11.6. She deferred treatment for a tentative diagnosis of polymyalgia rheumatica at that point, wishing to complete an orthopedic evaluation. I eventually saw her in followup in July of 2014 and at that point, her CRP was 9.9 and a sed rate was 46. Prednisone 5 mg twice daily was ordered for presumed diagnosis of polymyalgia rheumatica and she had a gratifying response in terms of symptomimprovement and a reduction in her sed rate to 31 by 2 weeks later. She has continued on prednisone since then but unfortunately we have not had much luck in tapering the dose with symptom recurrence each time we tried to do so. Her sed rate has remained elevated ranging between 29 and 38. Current dose of prednisone is 7.5 mg in the morning and 5 mg in the afternoon. She properly asks what might be going on other than polymyalgia rheumatica and I thought that getting your opinion was the next step. The patient's other chronic medical problems included anxiety neurosis, history of estrogen withdrawal symptoms, essential hypertension, overweight, and essential tremor. Her current medications are Effexor XR, Inderal LA, prednisone, Prempro, and triamterene hydrochlorothiazide. Thank you for seeing Gloria for me regarding her rheumatologic issues. If you need additional information or would like to discuss her case with me for any reason, feel free to contact me by phone, mail, or email (email address is [email or web address]). Sincerely, Maninder Ochoa M.D. Department of Internal Medicine [facility] in [place] [id number] samuel Electronically Signed By: MANINDER OCHOA MD On: 03/18/2015 10:13 AM Source: [facility] [id number] Document Id: [id number] [facility] DEAN Miscellaneous - Citlali Gurrola, R.M.A. - 03/17/2015 2:34 PM CST Rheumatology Appointment Document Contains Addenda Addendum by MANINDER OCHOA MD on 18 March 2015 08:01:28 [facility] DEAN From: MANINDER OCHOA MD To: CITLALI GURROLA; Sent: 03/18/2015 08:01:28 [facility] DEAN Subject: RE: Rheumatology Appointment letter dictated AM 03/18/15. ctj From: CITLALI GURROLA To: MANINDER OCHOA MD; Sent: 03/17/2015 14:34:00 [facility] DEAN Subject: Rheumatology Appointment Patient spoke with Dr Ochoa on 03/13/15 and it was decided to see a Chief Of Harbor Patrol at [facility]. Patient is scheduled for: Tuesday March 24, [address] [facility] 15[address] Floor [address] Desk phone [phone] to call if needs to reschedule Please call for Registration [phone] Patient should double check with insurance on coverage. They are requesting the following blood work to be done within the last 2 months CBC with Diff CRP Sed Rate (just had done 03/13/15) Creatinine UA with micro Can you please put in the order for these tests? Would you like to do a referral letter to Dr Henry? Source: [facility] POWERCHART Document Id: [id number] Mallika - Maninder Ochoa M.D. - 03/10/2015 12:54 PM CST Ambulatory Patient Summary [address] [id number] Visit Information Name: GLORIA BONILLA [facility] Number: [id number] Current Date: 03/10/2015 12:54:13 Physicians Attending Provider: MANINDER OCHOA MD Primary Care Provider: MANINDER OCHOA MD GLORIA BONILLA has been given the [...] medications. Medication/Strength Dose Route Frequency Indications/Special Instructions/Comments/Notes azithromycin (Azithromycin 5 Day Dose Pack 250 mg oral tablet) 2 tablets on day 1, then 1 tablet on days 2-5 Oral as directed for 5 Days predniSONE (predniSONE 5 mg oral tablet) See Instructions change to 5 mg AM, 5 mg mid-day and 2.5 mgevening for 1 month, then check ESR and adjust dose further per result propranolol (Inderal LA 120 mg oral capsule, extended release) 120 mg Oral once a day triamterene-hydrochlorothiazide (triamterene-hydrochlorothiazide 37.5 mg-25 mg oral tablet) 1 tab(s)Oral once a day as needed for Swelling conjugated estrogens-medroxyPROGESTERone (Prempro 0.3 mg-1.5 mg oral tablet) 1 tab(s) Oral once a day venlafaxine (Effexor XR 150 mg oral capsule, extended release) 150 mg Oral once a day emollients, topical (Tetrix Cream [...] Electronically Signed By: MANINDER OCHOA MD Signed On:10-MAR-2015 12:54:09 Your Allergies & Intolerances Substance Reaction Symptoms [...] Your Upcoming Appointments Date Time Location Provider 03/13/2015 11:30 [facility] Lab [facility] Lab Attention: Contact your local Clinic if further [...] if you dont have one. Go to [email or web address] and click on Create Your Account. Then, follow the directions to complete the online form. Youll be asked for your [facility] number which you can find at the top of this document. Your Goals/Additional instructions: Source: [facility] POWERCHART Document Id: [id number] [facility] DEAN Miscellaneous - Maninder Ochoa M.D. - 03/10/2015 12:54 PM CST Ambulatory Discharge Medication List [address] [id number] Visit Information Name: RADHA GLORIAMADHAVI RAMOS [facility] Number: [id number] Visit Date: 03/10/2015 12:54:12 Attending Provider: MANINDER OCHOA MD Primary Care [...] medications. Medication/Strength Dose Route Frequency Indications/Special Instructions/Comments/Notes azithromycin (Azithromycin 5 Day Dose Pack 250 mg oral tablet) 2 tablets on day 1, then 1 tablet on days 2-5 Oral as directed for 5 Days predniSONE (predniSONE 5 mg oral tablet) See Instructions change to 5 mg AM, 5 mg mid-day and 2.5 mgevening for 1 month, then check ESR and adjust dose further per result propranolol (Inderal LA 120 mg oral capsule, extended release) 120 mg Oral once a day triamterene-hydrochlorothiazide (triamterene-hydrochlorothiazide 37.5 mg-25 mg oral tablet) 1 tab(s)Oral once a day as needed for Swelling conjugated estrogens-medroxyPROGESTERone (Prempro 0.3 mg-1.5 mg oral tablet) 1 tab(s) Oral once a day venlafaxine (Effexor XR 150 mg oral capsule, extended release) 150 mg Oral once a day emollients, topical (Tetrix Cream [...] Electronically Signed By: MANINDER OCHOA MD Signed On:10-MAR-2015 12:54:09 Additional Information: Source: [facility] POWERCHART Document Id: [id number] [facility] DEAN Miscellaneous - Cam Yanira T - 03/10/2015 9:[address] MANINDRE OCHOA: REQUEST FOR A CALL BACK Document Contains Addenda Addendum by CITLALI GURROLA on 10 March 2015 13:42:44 [facility]UD[facility] DEAN Patient notified of below Addendum by MANINDER OCHOA MD on 10 March 2015 12:56:25 [facility]UD[facility] DEAN From: MANINDER OCHOA MD To: CITLALI GURROLA; Sent: 03/10/2015 12:56:25 [facility] DEAN Subject: RE: DR MANINDER OCHOA: REQUEST FOR A CALL BACK I sent a Zpak pscp to [facility] in [place] Addendum by CITLALI GURROLA on 10 March 2015 09:19:52 [facility]UD[facility] DEAN From: CITLALI GURROLA To: MANINDER OCHOA MD; Sent: 03/10/2015 09:19:52 [facility] DEAN Subject: FW: DR MANINDER OCHOA: REQUEST FOR A CALL BACK Patient calling in to request an Abx. States she has head congestion for 3 weeks. Cough, dark green runny nose, sinus pressure, post nasal drip, low grade temp, chills/sweats, ringing/popping in ears. Has tried OTC meds and has had no help. Would like an Abx. Will your prescribe or does the patient need to come in for an appointment? Allergies: NKDA Cub [place] Addendum by EDDA HOFFMAN RN on 10 March 2015 09:08:18 [facility]UD[facility] DEAN From: EDDA HOFFMAN RN ([facility] Medicine Nurse) To: CITLALI GURROLA; Sent: 03/10/2015 09:08:18 [facility]UD[facility] DEAN Subject: FW: DR MANINDER OCHOA: REQUEST FOR A CALL BACK From: YANIRA BAY ([facility]) To: [facility] Medicine Nurse; Cc: [facility]; Sent: 03/10/2015 09:07:29 [facility]UD[facility] DEAN Subject: DR MANINDER OCHOA: REQUEST FOR A CALL BACK Actions: Notify patient- refer to General Message If you need a prescription refill please call your pharmacy. Please allow 3 business days for processing. Call Center Template: ?? May we leave a message for you on this phone? ?? How soon do you need a call back? ?? What can I help you with today?GLORIA WOULD LIKE TO HAVE DR OCHOA NURSE CALL HER BACK WHEN SHE IS AVAILABLE. PLEASE CALL GLORIA. ?? If Medication Refill: o What is the medication? o What pharmacy do you use? o Have you contacted your pharmacy regarding this request? I will send this information to the appropriate staff member who will look into your concern. If thenurse needs to talk to you he or she will call you back within two hours. Thank you for calling [facility]. Source: [facility] POWERCHART Document Id: [id number] Electronically signed by Ryan [facility] Radio Interference Trouble Shooter [id number] at 08/09/2016 5:51 AM CDT Miscellaneous - Anette Dodson R.N. - 02/21/2015 12:11 PM CST Med Management:prednisone Document Contains Addenda Addendum by MANINDER OCHOA MD on 21 February 2015 18:10:26 [facility] DEAN From: MANINDER OCHOA MD Sent: 02/21/2015 18:10:26 [facility] DEAN Subject: RE:Med Management:prednisone Approved Order:predniSONE (predniSONE 5 mg oral tablet) See Instructions change to 5 mg AM, 5 mg mid-day and 2.5 mg evening for 1 month, then check ESR and adjust dose further per result Qty: 30 tab(s) Refills: 0 Substitutions Allowed Route To Pharmacy - [facility] #[id number] Signed by MANINDER OCHOA MD 02/21/2015 18:10:18 From: ANETTE DODSON RN ([facility] Nurse) To: MANINDER OCHOA MD; Sent: 02/21/2015 12:11:49 [facility] DEAN Subject: Med Management:prednisone On hold pending signature Order:predniSONE (predniSONE 5 mg oral tablet) See Instructions change to 5 mg AM, 5 mg mid-day and 2.5 mg evening for 1 month, then check ESR and adjust dose further per result Qty: 30 tab(s) Refills: 0 Substitutions Allowed Route To Pharmacy - [facility] #[id number] Caller is: ( ) Patient ( ) Mother ( ) Father ( ) Spouse ( ) Daughter ( ) Son ( x ) Pharmacy ( ) Other: Provider: [place] [facility]: [place] Name of Medications Needing Refill:Prednisone 5mg tid Last Refill Date:01/22/2015 Additional Information:Hx of PMR : Last ESR(02/03/15): Prednisone dose was changed . I proposed the new order. There isn't any lab ordered. Last / Future Ulvuioyatou33/23/15 Disposition: ( ) Send to Pharmacy ( ) Call to Pharmacy ( ) Patient will picker and sorter load and unload Script ( ) Mail Rx to Patient Source: [facility] ipnexusCHART Document Id: [id number] Electronically signed by Conversion, [facility] Radio Interference Trouble Shooter [id number] at 08/09/2016 5:51 AM CDT Mallika - Maninder Ochoa M.D. - 02/03/2015 3:17 PM CST Results Notification Document Contains Addenda Addendum by CITLALI GURROLA on 03 February 2015 16:22:47 [facility]UD[facility] DEAN Patient advised of results Addendum by CITLALI GURROLA on 03 February 2015 15:21:11 STUD[facility] DEAN Left message to call back From: MANINDER OCHOA MD To: CITLALI GURROLA; Sent: 02/03/2015 15:17:18 STUD[facility] DEAN ! Show up: 02/03/2015 15:17:18 [facility] DEAN Subject: Results Notification Actions: Notify patient-refer to General Message Reminder Comments: TSH OK. Hypothyroidism is not reason for weight gain and lower extremity edema. Prednisone is implicated in these developments as discussed at today's visit Results: Date Result Name Ind Value Ref Range 02/03/2015 12:50 Creatinine 0.7 mg/dL (0.6 - 1.1) 02/03/2015 12:50 EGFR (MDRD) >60.0 mL/min/SA (>=60.0 - ) 02/03/2015 12:50 EGFR (MDRD) >60.0 mL/min/SA (>=60.0 - ) 02/03/2015 12:50 BUN 15 mg/dL (6 - 24) 02/03/2015 12:50 Hgb A1c (H) 6.3 % A1C ( - <=5.6) 02/03/2015 12:50 TSH 1.94 mIU/L (0.27 - 4.20) Source: [facility] POWERCHART Document Id: [id number] Electronically signed by Conversion, [facility] Radio Interference Trouble Shooter [id number] at 08/09/2016 5:51 AM CDT Mallika - Maninder Ochoa M.D. - 02/03/2015 1:07 PM CST Results Notification Document Contains Addenda Addendum by CITLALI GURROLA on 03 February 2015 16:22:33 [facility] DEAN Patient advised of results Addendum by CITLALI GURROLA on 03 February 2015 15:21:32 STUD[facility] DEAN Left message to call back From: MANINDER OCHOA MD To: CITLALI GURROLA; Sent: 02/03/2015 13:07:41 STUD[facility] DEAN ! Show up: 02/03/2015 13:07:41 [facility]UD[facility] DEAN Subject: Results Notification Actions: Notify patient-refer to General Message Reminder Comments: ekg normal. proceed with exercise radionuclide stress test. i ordered in [place] ( I think I did, anyway Results: Date Result Type Result Name 02/03/2015 12:49 Document - mdoc Electrocardiogram Source: [facility] [employer] Document Id: [id number] Electronically signed by NatSent, [facility] Radio Interference Trouble Shooter [id number] at 08/09/2016 5:51 AM CDT Miscellaneous - Maninder Ochoa M.D. - 02/03/2015 1:05 PM CST Results Notification Document Contains Addenda Addendum by CITLALI GURROLA on 03 February 2015 16:22:14 [facility] DEAN Patient advised of results Addendum by CITLALI GURROLA on 03 February 2015 15:21:45 [facility]UD[facility] DEAN Left message to call back From: MANINDER OCHOA MD To: CITLALI GURROLA; Sent: 02/03/2015 13:05:55 STUD[facility] DEAN ! Show up: 02/03/2015 13:05:55 [facility] DEAN Subject: Results Notification Actions: Notify patient-refer to General Message Reminder Comments: hgb looks fine. Other tests pending Results: Date Result Name Value Ref Range 02/03/2015 12:50 Hgb 13.1 g/dL (12.0 - 15.5) [facility] Document Id: [id number] Electronically signed by [employer], [facility] Radio Interference Trouble Shooter [id number] at 08/09/2016 5:51 AM CDT Citlali Valenzuela, R.M.A. - 02/03/2015 11:19 AM CST Adult [place] Intake/History Adult [place] Intake/History Entered On: 02/03/2015 11:21 [facility]UD[facility] DEAN Performed On: 02/03/2015 11:19 STUD[facility] DEAN by CITLALI GURROLA [facility] Intake Chief Complaint : Rotuine follow up Peripheral Pulse Rate : 78 /min Systolic Blood Pressure : 142 mmHg (HI) Diastolic Blood Pressure : 76 mmHg NIBP Mean : 98 mmHg BP Location : Right upper extremity Blood Pressure Cuff Size : Regular SpO2 : 97 % Oxygen Therapy : Room air Height : 178 cm(Converted to: 5 ft 10 inch(es), 70 inch(es)) Actual Weight : 114.9 kg(Converted to: 253 lb 5 oz) Weight Source : Standing scale Dosing Weight Clinic : 114.9 kg Clinic BSA : 2.38 Body Mass Index : 36.26 kg/m2 CITLALI GURROLA [facility] - 02/03/2015 11:19 [facility]UD[facility] DEAN General Info Information Given By : Patient Languages : Romanian Is Patient Female and 13-50 no hysterectomy : No CITLALI GURROLA [facility] - 02/03/2015 11:19 [facility]AN Subjective Pain Symptoms : No CITLALI GURROLA [facility] - 02/03/2015 11:19 [facility]AN Dependent Habits Tobacco Use/Currently Using : No Exposure to Tobacco Smoke : Other: never Smoking Status : Never smoker CITLALI GURROLA [facility] - 02/03/2015 11:19 [facility]AN Caffeine Use Grid Caffeine Use : Current Type : Coffee Frequency : Daily Amount : couple cups daily CITLALI GURROLA [facility] - 02/03/2015 11:19 [facility]UD[facility] DEAN Recreational Drug Use Grid Drug Use : None CITLALI GURROLA [facility] - 02/03/2015 11:19 [facility]UD[facility] DEAN Source: [employer] POWERCHART Document Id: [id number] STUDENT [facility] DEAN!36 E[facility] DEAN Citlali Valenzuela, R.M.A. - 02/03/2015 11:18 AM CST Health Assessment Health Assessment Entered On: 02/03/2015 11:19 [facility] DEAN Performed On: 02/03/2015 11:18 [facility]UD[facility] DEAN by CITLALI GURROLA [facility] Health Assessment Complete Health Assessment Complete or Modified : Annual Health Assessment Annual Health Assessment Completed : Yes CITLALI GURROLA [facility] - 02/03/2015 11:18 [facility] Nutrition Nutrition Risk Factors by History Adult : None CITLALI GURROLA [facility] - 02/03/2015 11:18 [facility] DEAN Functional Current Daily Living Assistance : None CITLALI GURROLA [facility] 02/03/2015 11:18 [facility]UD[facility] DEAN Dependent Habits Tobacco Use/Currently Using : No Exposure to Tobacco Smoke : Other: never Smoking Status : Never smoker Alcohol Use : Yes CITLALI GURROLA [facility] - 02/03/2015 11:18 [facility] DEAN Caffeine Use Grid Caffeine Use : Current Type : Coffee Frequency : Daily Amount : couple cups daily CITLALI GURROLA [facility] - 02/03/2015 11:18 [facility] DEAN Recreational Drug Use Grid Drug Use : None CITLALI GURROLA [facility] - 02/03/2015 11:18 [facility]UD[facility] DEAN AUDIT Tool How Often Do You Have A Drink : 4 or more times a week How Many Drinks in a Day When Drinking : 1 or 2 Six or More Drinks On One Occassion : Less than monthly Audit Phase 1 Score : 5 CITLALI GURROLA [facility] - 02/03/2015 11:18 [facility] Psychosocial Domestic Abuse Concerns : None Behavioral Health Screen/Safety Assmt : No Latter Day Preference : No Latter Day Affiliation CITLALI GURROLA [facility] - 02/03/2015 11:18 [facility] DEAN Advance Directive Advanced Directives : No Advance Directive Additional Information : No CITLALI GURROLA [facility] 02/03/2015 11:18 [facility] DEAN Educ Needs Learning Style Preference Adult Grid Patient : None Family : None CITLALI GURROLA [facility] 02/03/2015 11:18 STUDENT [facility] DEAN Source: [facility] POWERCHART Document Id: [id number] STUDENT [facility] DEAN!38 E[facility] DEAN documented in this encounter Plan of Treatment Not on filedocumented as of this encounter Procedures Procedure Name Priority Date/Time Associated Comments Diagnosis HEMOGLOBIN, B Routine 02/03/2015 12:50 PM Results for this [facility] procedure are i n the results section. BUN (BLOOD UREA Routine 02/03/2015 12:50 PM Resul ts for this NITROGEN), S/P [facility] procedure are in the results section. THYROID-STIMULATING Routine 02/03/2015 12:50 PM R esults for this HORMONE-SENSITIVE [facility] procedure are in (S-TSH) the results section. HEMOGLOBIN A1C, B Routine 02/03/2015 12:50 PM Res ults for this [facility] procedure are i n the results section. CREATININE WITH Routine 02/03/2015 12:50 PM Resul ts for this EGFR, S/P [facility] procedure are i n the results section. ECG Routine 02/03/2015 12:45 PM Results for this [facility] procedure are i n the results section. documented in this encounter Results Hemoglobin (02/03/2015 12:50 PM [facility] DEAN) P athologist Signature Hemoglobin 13.1 12.0 - 15.5 POWERCHART GDL Comment: [id number] 08/07/2016 Specimen (Source) Anatomical Collection Method Collection Time Re ceived Time Location / / Volume Laterality Blood 02/03/2015 12:50 PM [facility] Maninder Ochoa M.D. LAB BLOOD ADD-ON Performing Organization Address City/State/ZIP Code Phon e Number POWERCHART Thyroid-Stimulating Hormone-Sensitive (s-TSH) (02/03/2015 12:50 PM [facility]) P athologist Signature TSH 1.94 0.27 - 4.20 POWERCHART (Thyrotropin) MIUL Specimen (Source) Anatomical Collection Method Collection Time Re ceived Time Location / / Volume Laterality Blood 02/03/2015 12:50 PM [facility] Maninder Ochoa M.D. LAB BLOOD ADD-ON Performing Organization Address City/State/ZIP Code Phon e Number POWERCHART BUN (Blood Urea Nitrogen) (02/03/2015 12:50 PM [facility]) P athologist Signature BUN (Blood Urea 15 6 - 24 MGDL POWERCHART Nitrogen), S Specimen (Source) Anatomical Collection Method Collection Time Re ceived Time Location / / Volume Laterality Blood 02/03/2015 12:50 PM [facility] Maninder Ochoa M.D. LAB BLOOD ADD-ON Performing Organization Address City/State/ZIP Code Phon e Number POWERCHART Creatinine with eGFR (02/03/2015 12:50 PM [facility]) P athologist Signature Creatinine 0.7 0.6 - 1.1 POWERCHART MGDL HXeGFR (MDRD) >60.0 >=60.0 POWERCHART MLMINSA eGFR >60.0 >=60.0 POWERCHART Black/ MLMINSA [place]uvian Specimen (Source) Anatomical Collection Method Collection Time Re ceived Time Location / / Volume Laterality Blood 02/03/2015 12:50 PM [facility] Maninder Ochao M.D. LAB BLOOD ADD-ON Performing Organization Address City/State/ZIP Code Phon e Number POWERCHART (ABNORMAL) Hemoglobin A1c (02/03/2015 12:50 PM [facility]) P athologist Signature Hemoglobin A1c, 6.3 (H) <=5.6 A1C POWERCHART B Specimen (Source) Anatomical Collection Method Collection Time Re ceived Time Location / / Volume Laterality Blood 02/03/2015 12:50 PM [facility] Maninder Ochoa M.D. LAB BLOOD ADD-ON Performing Organization Address City/State/ZIP Code Phon e Number POWERCHART ECG 12 Lead (02/03/2015 12:45 PM [facility]) Specimen (Source) Anatomical Collection Method Collection Time Re ceived Time Location / / Volume Laterality 02/03/2015 12:45 PM [facility] - 02/03/2015 12:45 PM [facility] DEAN Test Reason : EKG Blood Pressure : / mmHG Vent. Rate : 065 BPM ? Atrial Rate : 065 BPM ?? P-R Int : 132 ms ?QRS D ur : 084 ms ?QT Int : 402 ms ? P-R-T Axe s : 067 047 036 degrees ?? QTc Int : 418 ms Normal sinus rhythm Normal ECG No previous ECGs available Referred By: MANINDER OCHOA ? Confirmed By:SANDOR HOFFMAN MD Procedure Note Provider, Magali Navarrete - 07/30/2016F ormatting of this note might be different from the original. Test Reason : EKG Blood Pressure : / mmHG Vent. Rate : 065 BPM Atrial Rate : 065 B PM P-R Int : 132 ms QRS Dur : 084 ms QT Int : 402 ms P-R-T Axes : 067 047 03 6 degrees QTc Int : 418 ms Normal sinus rhythm Normal ECG No previous ECGs available Referred By: MANINDER OCHOA Confirmed By: SANDOR HOFFMAN MD Sandor Hoffman M.D., Ph.D. ECG ORDERABLES Performing Organization Address City/State/ZIP Code [facility] e Number [facility] [address] [place] [phone] documented in this encounter Visit Diagnoses Not on filedocumented in this encounter Additional Health Concerns Assessment Noted Time PHQ-9 Depression Total Score: 2 07/15/2014 11:54 AM CD T documented as of this encounter
--- OUTSIDE RECORDS SUMMARY | 2021-12-03 11:09 | XMS_ITS | Encounter Summary ---
:1955 Author Organization [facility] Address [address] [place] [address] Care Team Providers Name Role Phone Unavailable Primary Care Provider Unavailable Encounter Details Date Type Department Care Team Description 06/06/2015 Hospital Encounter HX [facility] Celi Luna M.D . Social History Tobacco Use Types [...] - - Height 178 cm (5' 10.08) 06/06/2015 11:31 AM CDT Body Mass Index - - documented in this encounter Medications at Time of Discharge Medication Sig Dispensed Refills Start Date End Date diphenhydrAMINE (BENADRYL) Take 2 capsules by 0 0 03/31/2015 25 mg capsule mouth daily. venlafaxine HCl Take 75 mg by mouth 0 03/31/2015 (VENLAFAXINE ORAL) daily. documented as of this encounter Miscellaneous Notes Miscellaneous - Nicol Munguia - 10/14/2015 2:[address] Luna or her nurse Document Contains Addenda Addendum by VANESSA CALIX RN on October 15, 2015 12:03:40 CDT Patient was told in UC to FU if not improving in the next couple days. Addendum by CELI LUNA MD on October 15, 2015 11:56:22 CDT From: CELI LUNA MD To: [facility] Nurse; Sent: 10/15/2015 11:56:22 CDT Subject: RE: Dr. Luna or her nurse looks like she was just started treatment with augmentin yesterday. it can take 2-3 days before the abx starts. if she is not better on tuesday, i can call in for zpak Addendum by VANESSA CALIX RN on October 14, 2015 15:20:34 CDT From: VANESSA CALIX RN ([facility] Medicine Nurse) To: CELI LUNA MD; Sent: 10/14/2015 15:20:34 CDT Subject: FW: Dr. Luna or her nurse NGHIA below from [facility]. Addendum by VANESSA CALIX RN on October 14, 2015 14:32:04 CDT A message was already sent to Dr. Morocho when the patient called this morning. We will need to await a response from her. From: NICOL MUNGUIA ([facility]) To: [facility] Nurse; Cc: [facility]; Sent: 10/14/2015 14:27:38 CDT Subject: Dr. Luna or her nurse If you need a prescription refill please call your pharmacy. Please allow 3 business days for processing. Call Center Template: ?? May we leave a message for you on this phone? ?? What can I help you with today? I received a call from Siobhan on the [facility] nurse triage line. Shesaid that she spoke with Luda who said she was seen at [facility] on Tuesday and that she is not doing any better. Luda was not on the line and the nurse let her know a message can be sent to her doctor to see if a Z-pack could be called in. Please call Luda to discuss. Thank you. ?? If Medication [...] within two hours. Thank you for calling [facility]. Source: [facility] Product Hunt Document Id: [id number] Electronically signed by Conversion, [facility] Telecom Sales Consultant [id number] at 08/07/2016 3:15 PM CDT Miscellaneous - Celi Luna M.D. - 06/06/2015 4:29 PM CDT test results From: CELI LUNA MD To: ULDA GARCIA Sent: 06/06/2015 16:29:38 CDT Subject: test results Hello Ms. Garcia, Your sed rate is elevated. Your last sed rate checked in [place] in Apr was normal at 19. Please let me know if you have any questions or concerns. Thanks. Results: Date Result Name Ind Value Ref Range 06/06/2015 11:35 Sed Rate (H) 36 mm/hr (0 - 29) Source: [facility] Document Id: [id number] Electronically signed by Conversion, [facility] [employer] Sales Consultant [id number] at 08/07/2016 3:15 PM CDT documented in this encounter Plan of Treatment Not on filedocumented as of this encounter Procedures Procedure Name Priority Date/Time Associated Comments Diagnosis SEDIMENTATION RATE, B Routine 06/06/2015 11:35 Re sults for this AM CDT procedure are i n the results section. C-REACTIVE PROTEIN Routine 06/06/2015 11:35 Resul ts for this (CRP), S/P AM CDT procedure are i n the results section. documented in this encounter Results (ABNORMAL) Sedimentation Rate (06/06/2015 11:35 AM CDT) [facility] gist Method Time Signature Sedimentation 36 (H) 0 - 29 POWERCHART Rate, B MMHR Specimen (Source) Anatomical Collection Method Collection Time Re ceived Time Location / / Volume Laterality Blood 06/06/2015 11:35 AM CDT Celi Luna M.D. LAB BLOOD ADD-ON Performing Organization Address City/State/ZIP Code Phon e Number POWERCHART (ABNORMAL) CRP (C-Reactive Protein) (06/06/2015 11:35 AM CDT) P athologist Signature C-Reactive 19.6 (H) <=4.9 MGL POWERCHART Protein (CRP), S Specimen (Source) Anatomical Collection Method Collection Time Re ceived Time Location / / Volume Laterality Blood 06/06/2015 11:35 AM CDT Nicole Mariano LAB BLOOD ADD-ON Performing Organization Address City/State/ZIP Code Phon e Number POWERCHART documented in this encounter Visit Diagnoses Not on filedocumented in this encounter Additional Health Concerns Assessment Noted Time PHQ-9 Depression Total Score: 2 07/15/2014 11:54 AM CD T documented as of this encounter
--- OUTSIDE RECORDS SUMMARY | 2021-12-03 11:09 | XMS_ITS | Encounter Summary ---
:1955 Author Organization [facility] Address [address] [place] [address] Care Team Providers Name Role Phone Unavailable Primary Care Provider Unavailable Encounter Details Date Type Department Care Team Description 07/15/2014 Hospital Encounter HX [facility] INTERNMED Francia Ochoa M.D. Social History Tobacco Use Types Packs/Day Years Used Date Smoking Tobacco: Never Assessed Sex Assigned at Date Recorded Not on file documented as of this encounter Last Filed Vital Signs Vital Sign Reading Time Taken Comments Blood Pressure 140/78 07/15/2014 10:30 AM CDT Pulse 84 07/15/2014 10:30 AM CDT Temperature - - Respiratory Rate 14 07/15/2014 10:30 AM CDT Oxygen Saturation - - Inhaled Oxygen Concentration - - Weight 105 kg (231 lb 11.3 oz) 07/15/2014 10:30 AM CDT Height 178 cm (5' 10.08) 07/15/2014 10:30 AM CDT Body Mass Index 33.17 07/15/2014 10:30 AM CDT documented in this encounter Progress Notes Maninder Ochoa M.D. - 07/15/2014 10:13 AM CDT [id number] Document Contains [facility] INTERNAL MEDICINE OUTPATIENT VISIT CHIEF COMPLAINT/REASON FOR VISIT Left hand tremor; medication recheck. PROBLEM LIST: 1. Essential hypertension. 2. Impaired glucose metabolism. 3. Dyslipidemia. 4. Overweight. 5. Work related hand eczema. 6. Hearing loss with tinnitus. 7. Chronic left knee pain with intermittent swelling status post arthroscopic meniscus repair. 8. Right foot pain and swelling related to previous fracture. 9. Estrogen withdrawal symptomatology. 10. Morning headaches. 11. Cervical spine spurs with history of neck pain. Treated with a tramadol. 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 13. Strongly positive family history of coronary artery disease. HISTORY OF PRESENT ILLNESS I saw the patient one previous time on 11/05/2013 on referral from the [facility]. That was primarily related to elevated blood pressure readings. I assumed primary care responsibilities at that time. Patient was advised to check her blood pressure serially, keep a list of results and come back with that list 1 month later. Why she did not come back to see me as instructed is unclear.In the interim, she had a problems with myalgias and saw my Internal Medicine colleague, Galilea Mayers M.D. back in February and again in March. Dr. Mayers's diagnosis was polymyalgia rheumatica, andit was advised that the patient start on prednisone therapy. For whatever reason she decided not to do that, and has continued to have generalized achiness. Superimposed on this is her bilateral knee pain, left greater than right. The knees sometimes swell up. She continues to have malaise and fatiguein addition to the achiness. She has headaches although these are not temporal in location but rather at the apex of the head and are often present when she gets up in the morning. She goes on to indicate that she has some element of daytime hypersomnia. Although scored is just 8 on the [place] Sleepiness Scale survey at today's visit. Her has told her that she snores loudly and she has pauses in her breathing during sleep. He has encouraged her to be evaluated for the possibility that she has obstructive sleep apnea. Patient has not had fever, chills or night sweats. Her appetite remains good. She has noted a tremor of the left hand which is a sometimes aggravated by activities such as when she is holding a mirror to look at the back of her head. This tremor has been noted for the last year or so. She has not been aware of any similar tremor in the right hand. 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 Her blood pressure readings have generally been satisfactory when she has them checked at home. She did notbring in a list of results. She recalls that systolic pressures are around 140. She could not recallthe diastolic pressure readings. Her cardiovascular review of systems is negative. She had a heart scan done in conjunction with her previous visit with me and that showed a calcium score of 0 and therefore the lipid abnormalities that were present were not treated with medication. She says that the venlafaxine seems to wear off in the evening and she becomes much for fretful. She is wondering if she could take this twice a day. Sheis on the XR version which is suppose to last 24 hours. PHYSICAL EXAMINATION VITAL SIGNS: Weight 105.1 kg which is a 4.4 kg decrease since she was in last October. Height 178 cm.Body mass index 33.2 kg/m2. Blood pressure when I checked it 172/88, the intake reading was 140/78, heart rate 72 and regular, no extrasystoles. Respirations even and unlabored at 14 per minute with oxygen saturation 97% on room air. GENERAL: This is a an alert, oriented, pleasant and appropriate, overweight, middle-aged female. She is neatly groomed. HEENT: Head is normocephalic with no evidence of previous trauma. No micro or retrognathia. PERRL. EOMI with no nystagmus. No scleral icterus. Palpebral conjunctivae with good color. Oral cavity adequately hydrated. No lesions noted with [place] dentition in satisfactory repair. No tonsillar, uvular, or soft palette hypertrophy. Grade 4 Mallampati index with tongue protruding in the midline. No facialdroop. NECK: Supple. No increased JVP. Negative HJR. No thyromegaly or thyroid nodules. No carotid bruits or decreased carotid pulsations. No submandibular, cervical, or supraclavicular lymphadenopathy or mass. LUNGS: Clear to percussion and auscultation with symmetric and satisfactory air movement. CARDIAC: Exam with no pathologic sounds or LV lift. ABDOMEN: Has normal bowel sounds, is nondistended, is generally soft and nontender with no organomegaly or mass. No epigastric bruit or prominence/widening of the abdominal aortic pulsation. Radial andfoot pulses are normal. EXTREMITIES: No leg or ankle edema. I did note a mild tremor of the hands, left greater than right. There was no cogwheeling rigidity on either side. She had a normal arm swing with ham ambulation. Rapid alternating movements were performed symmetrically and within normal limits. IMPRESSION/REPORT/PLAN 1. 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 2. Generalized achiness concerning for the possibility of polymyalgia rheumatica, with previous mildelevation in CRP. 3. Chronic dysthymic disorder, which may be a contributing factor to her malaise, fatigue and achiness. 4. Signs and symptoms of obstructive sleep apnea. 5. White coat hypertension, superimposed on her chronic essential hypertension. PLAN: Check sed rate and CRP. If significantly elevated, I will probably give her a trial of prednisone 5 mg twice daily. Hold off on Inderal LA for the tremor and increased in the venlafaxine dose until that trial has been completed. As it turns out, her sedimentation rate was 46, so I did start are h er on the prednisone and will recheck her sed rate, in 2 weeks. Follow up with me in 1 month, by which time it is certainly possible that other changes will have been made. Consider on beta-darrell therapy. for the tremor and increase in the venlafaxine dose. She probably should have nocturnal polysomnography, but we deferred that until after her next visit with me. ADDENDUM: At her next visit will address the issue of her tramadol therapy and if she is going to remain on that have her sign an opiate contract. Maninder Ochoa M.D./pos Electronically Signed By: MANINDER OCHOA MD On: 07/17/2014 08:58 AM Source: [facility] MHSDOLBEYNONRADSYS Document Id: [id number] documented in this encounter Miscellaneous Notes Miscellaneous - Kenneth Munguia Ceci - 09/25/2014 1:26 PM CDT Citlali Document Contains Addenda Addendum by CITLALI GURROLA on 25 September 2014 14:58:52 CDT Spoke with patient, see other message Addendum by ANETTE DODSON RN on 25 September 2014 14:25:33 CDT From: ANETTE DODSON RN ([facility] Family Medicine Nurse) To: CITLALI GURROLA; Sent: 09/25/2014 14:25:33 CDT Subject: FW: Citlali From: KENNETH MUNGUIA To: [facility] Nurse; Cc: [facility] Call Center; Sent: 09/25/2014 13:26:44 CDT Subject: Citlali If you need a prescription refill please call your pharmacy. Please allow 3 business days for processing. Call Center Template: ?? May we leave a message for you on this phone? ?? What can I help you with today? Gloria called in and said she was returning a call to your extension. She said it is in regards to her blood work. Please call her at the above number to discuss. Thank you. ?? If Medication [...] within two hours. Thank you for calling [facility]. Source: [facility] POWERCHART Document Id: [id number] Electronically signed by Ryan [facility] Roll Press Operator [id number] at 08/08/2016 6:52 PM CDT Miscellaneous - Suki Cabello - 07/24/2014 8:44 AM CDT GABRIELA-follow up Document Contains Addenda Addendum by ANETTE DODSON RN on 24 Jul 2014 09:13:28 CDT Pt Transferred to scheduling to make appointment for lab on 07/29/14or after and appt to see in one month. Ordered med as requested From: SUKI CABELLO [facility]: [facility]; Cc: [facility] Call Center; Sent: 07/24/2014 08:44:45 CDT Subject: GABRIELA-follow up If you need a prescription refill please call your pharmacy. Please allow 3 business days for processing. Call Center Template: ?? May we leave a message for you on this phone? yes ?? How soon do you need a call back? ?? What can I help you with today? she is returning a phone call from yesterday and can be reached at [phone]. And she has a question regarding her lab that needs to be drawn next week. ?? If Medication Refill: o What is the medication? o What pharmacy do you use? o Have you contacted your pharmacy regarding this request? I will send this information to the appropriate staff member who will look into your concern. If thenurse needs to talk to you he or she will call you back within two hours. Thank you for calling [facility]. Source: [facility] Bunkr Document Id: [id number] Electronically signed by Ryan [facility] Roll Press Operator [id number] at 08/08/2016 6:52 PM CDT Miscellaneous - Vanessa Thompson RAaronNAaron - 07/23/2014 11:41 AM CDT refill request - Tramadol Document Contains Addenda Addendum by VANESSA THOMPSON RN on 23 Jul 2014 12:56:32 CDT Faxed to pharmacy. Addendum by MANINDER OCHOA MD on 23 Jul 2014 12:11:36 CDT From: MANINDER OCHOA MD Sent: 07/23/2014 12:11:36 CDT Subject: RE:refill request - Tramadol Approved Order:traMADol (traMADol 50 mg oral tablet) 1-2 tabs PO q6hr Qty: 60 tab(s) Refills: 0 Substitutions Allowed PRN Pain Print - [id number] Signed by MANINDER OCHOA MD 07/23/2014 12:11:31 From: VANESSA THOMPSON RN To: MANINDER OCHOA MD; Sent: 07/23/2014 11:41:39 CDT Subject: refill request - Tramadol On hold pending signature Order:traMADol (traMADol 50 mg oral tablet) 1-2 tabs PO q6hr Qty: 60 tab(s) Refills: 0 Substitutions Allowed PRN Pain Print - [id number] Documented Discontinue:traMADol (traMADol 50 mg oral tablet) Signed by VANESSA THOMPSON RN 07/23/2014 11:40:31 Caller is: ( ) Patient ( ) Mother ( ) Father ( ) Spouse ( ) Daughter ( ) Son ( x ) Pharmacy ( ) Other: Provider: Gabriela Pharmacy: [facility] Name of Medications Needing Refill: Tramadol Last Refill Date: 05/09/14 Additional Information: Previously prescribed by former PCP at [facility]; Direct to provider medication. 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 Roll Press Operator [id number] at 08/08/2016 6:52 PM CDT Miscellaneous - Maninder Ochoa M.D. - 07/15/2014 4:23 PM CDT Ambulatory Patient Summary [address] [id number] Visit Information Name: RADHA GLORIA RAMOS [facility] Number: [id number] Current Date: 07/15/2014 16:23:02 Physicians Attending Provider: MANINDER OCHOA MD Primary Care Provider: MANINDER OCHOA MD RADHA GLORIA BRITOHLEEN has been given the following list of [...] to skin of hands Daily predniSONE (predniSONE 5 mg oral tablet) 1 Tablet(s), Oral, two times a day New Routed to [address] [address] traMADol (traMADol 50 mg oral tablet) 2 Tablet(s), Oral, once a day (at bedtime) as needed for Pain *triamterene-hydrochlorothiazide (triamterene-hydrochlorothiazide 37.5 mg-25 mg oral tablet) 1 Tablet(s), Oral, once a day This is a CHANGE venlafaxine (Effexor XR 150 mg oral capsule, extended release) 1 cap, Oral, once a day * You have let us know that you are not taking this medication as listed. Please talk with your primary care provider or the health care provider who prescribed the medication as soon as possible. Stop Taking the Following Medications: Medication list as of 07-15-14 16:23 Attention: If you have any medications at [...] Electronically Signed By: MANINDER OCHOA MD Signed On:15-JUL-2014 16:22:57 Your Allergies & Intolerances Substance Reaction Symptoms [...] appointment detail needed. Your Goals/Additional instructions: Source: [facility] POWERCHART Document Id: [id number] Miscellaneous - Maninder Ochoa M.D. - 07/15/2014 4:23 PM CDT Ambulatory Discharge Medication List [address] [id number] Visit Information Name: GLROIA BONILLA [facility] Number: [id number] Visit Date: 07/15/2014 16:23:01 Attending Provider: MANINDER OCHOA MD Primary Care Provider: MANINDER OCHOA MD GLORIA BONILLA RACHEL has been given the following list of [...] to skin of hands Daily predniSONE (predniSONE 5 mg oral tablet) 1 Tablet(s), Oral, two times a day New Routed to [facility] [address] traMADol (traMADol 50 mg oral tablet) 2 Tablet(s), Oral, once a day (at bedtime) as needed for Pain *triamterene-hydrochlorothiazide (triamterene-hydrochlorothiazide 37.5 mg-25 mg oral tablet) 1 Tablet(s), Oral, once a day This is a CHANGE venlafaxine (Effexor XR 150 mg oral capsule, extended release) 1 cap, Oral, once a day * You have let us know that you are not taking this medication as listed. Please talk with your primary care provider or the health care provider who prescribed the medication as soon as possible. Stop Taking the Following Medications: Medication list as of 07-15-14 16:23 Attention: If you have any medications at [...] Electronically Signed By: MANINDER OCHOA MD Signed On:15-JUL-2014 16:22:57 Additional Information: Source: [facility] POWERCHART Document Id: [id number] Miscellaneous - Maninder Ochoa M.D. - 07/15/2014 4:19 PM CDT Results Notification Document Contains Addenda Addendum by CITLALI GURROLA on 16 Jul 2014 09:34:53 CDT Patient notified of results From: MANINDER OCHOA MD To: CITLALI GURROLA; Sent: 07/15/2014 16:19:33 CDT ! Show up: 07/15/2014 16:19:33 CDT Subject: Results Notification Actions: Notify patient-refer to General Message Reminder Comments: Both CRP and ESR are somewhat elevated. Reasonable to start prednisone 5 mg po bid. Will hold off onincreasing Effexor XR and starting Inderal LA for tremor until we see how the Prednisone works out. Recheck ESR in 2 weeks Results: Date Result Name Ind Value Ref Range 07/15/2014 11:55 CRP (H) 9.9 mg/L ( - <=4.9) 07/15/2014 11:55 Sed Rate (H) 46 mm/hr (0 - 29) Source: [employer] Document Id: [id number] Mallika - Citlali Gurrola, R.M.A. - 07/15/2014 11:54 AM CDT VINCE-7 VINCE-7 Entered On: 07/15/2014 11:54 CDT Performed On: 07/15/2014 11:54 CDT by CITLALI GURROLA GAD7 GAD7 Feeling nervous : Nearly every day GAD7 Not able to control worry : Not at all GAD7 Worrying too much : Not at all GAD7 Trouble relaxing : Nearly every day GAD7 Being so restless : Nearly every day GAD7 Becoming easily annoyed : Not at all GAD7 Feeling afraid : Not at all GAD7 Total Score : 9 CITLALI GURROLA - 07/15/2014 11:54 CDT Source: [employer] Document Id: [id number] CDT!10 Miscelljimmy - Citlali Gurrola, R.M.A. - 07/15/2014 11:54 AM CDT PHQ-9 PHQ-9 Entered On: 07/15/2014 11:55 CDT Performed On: 07/15/2014 11:54 CDT by CITLALI GURROLA PHQ-9 Little interest or pleasure in doing things : Not at all Feeling down, depressed, or hopeless : Not at all Trouble falling or staying asleep, or sleeping too much : More than half the days Feeling tired or having little energy : Not at all Poor appetite or overeating : Not at all Feeling bad about yourself or that you are a failure : Not at all Trouble concentrating on things : Not at all Moving or speaking slowly; restless or fidgety : Not at all Thoughts that you would be better off /hurting self : Not at all PHQ-9 Calculated Score : 2 CITLALI GURROLA - 07/15/2014 11:54 CDT Source: [employer] Document Id: [id number] CDT!12 Miscellaneous - Citlali Gurrola, R.M.A. - 07/15/2014 11:53 AM CDT [place] Sleepiness Scale [place] Sleepiness Scale Entered On: 07/15/2014 11:54 CDT Performed On: 07/15/2014 11:53 CDT by CITLALI GURROLA [place] Sleepiness Scale [place] sitting and reading : Slight chance of dozing [place] watching TV : Slight chance of dozing [place] sitting in public : No chance of dozing [place] passenger in car : High chance of dozing [place] in a car stopped in traffic : No chance of dozing [place] Lying down to rest : High chance of dozing [place] sitting and talking : No chance of dozing [place] sitting quietly after lunch : No chance of dozing [place] Total Score : 8 CITLALI GURROLA - 07/15/2014 11:53 CDT Source: [employer] Document Id: [id number] CDT!11 Miscellaneous - Citlali Gurrola R.M.A. - 07/15/2014 10:30 AM CDT Adult Surgical Nurse Practitioner Intake/History Adult Surgical Nurse Practitioner Intake/History Entered On: 07/15/2014 10:33 CDT Performed On: 07/15/2014 10:30 CDT by CITLALI GURROLA Intake Chief Complaint : Medication check Left hand shaking-ongoing for a year Temperature Core : 36.9 DegC(Converted to: 98.4 DegF) Peripheral Pulse Rate : 84 /min Respiratory Rate : 14 /min Systolic Blood Pressure : 140 mmHg Diastolic Blood Pressure : 78 mmHg NIBP Mean : 99 mmHg SpO2 : 97 % Height : 178 cm(Converted to: 5 ft 10 inch(es), 70 inch(es)) Actual Weight : 105.1 kg(Converted to: 231 lb 11 oz) Weight Source : Standing scale Dosing Weight Clinic : 105.1 kg Clinic BSA : 2.28 Body Mass Index : 33.17 kg/m2 CITLALI GURROLA - 07/15/2014 10:30 CDT General Info Information Given By : Patient Languages : Wolof Is Patient Female and 13-50 no hysterectomy : No CITLALI GURROLA - 07/15/2014 10:30 CDT Subjective Pain Symptoms : No CITLALI GURROLA - 07/15/2014 10:30 CDT Dependent Habits Tobacco Use/Currently Using : No Smoking Status : Never smoker CITLALI GURROLA - 07/15/2014 10:30 CDT Tobacco Use Grid Last Use : never CITLALI GURROLA - 07/15/2014 10:30 CDT Alcohol Use : Yes CITLALI GURROLA 07/15/2014 10:30 CDT Caffeine Use Grid Caffeine Use : Current Type : Coffee Frequency : Daily Amount : couple cups daily CITLALI GURROLA - 07/15/2014 10:30 CDT Recreational Drug Use Grid Drug Use : None CITLALI GURROLA 07/15/2014 10:30 CDT ID Screen Drug Resistant Organism : No Travel Within Last 21 Days : No Contact with someone with Ebola : No CITLALI GURROLA - 07/15/2014 10:30 CDT Source: [facility] POWERCHART Document Id: [id number] CDT!42 documented in this encounter Plan of Treatment Not on filedocumented as of this encounter Procedures Procedure Name Priority Date/Time Associated Comments Diagnosis SEDIMENTATION RATE, B Routine 07/15/2014 11:55 Re sults for this AM CDT procedure are i n the results section. C-REACTIVE PROTEIN Routine 07/15/2014 11:55 Resul ts for this (CRP), S/P AM CDT procedure are i n the results section. documented in this encounter Results (ABNORMAL) Sedimentation Rate (07/15/2014 11:55 AM CDT) Patholo gist Method Time Signature Sedimentation 46 (H) 0 - 29 POWERCHART Rate, B MMHR Specimen (Source) Anatomical Collection Method Collection Time Re ceived Time Location / / Volume Laterality Blood 07/15/2014 11:55 AM CDT Maninder Ochoa M.D. LAB BLOOD ADD-ON Performing Organization Address City/State/ZIP Code Phon e Number POWERCHART (ABNORMAL) CRP (C-Reactive Protein) (07/15/2014 11:55 AM CDT) P athologist Signature C-Reactive 9.9 (H) <=4.9 [facility] POWERCHART Protein (CRP), S Specimen (Source) Anatomical Collection Method Collection Time Re ceived Time Location / / Volume Laterality Blood 07/15/2014 11:55 AM CDT Maninder Ochoa M.D. LAB BLOOD ADD-ON Performing Organization Address City/State/ZIP Code Phon e Number POWERCHART documented in this encounter Visit Diagnoses Not on filedocumented in this encounter Additional Health Concerns Assessment Noted Time PHQ-9 Depression Total Score: 2 07/15/2014 11:54 AM CD T documented as of this encounter
--- OUTSIDE RECORDS SUMMARY | 2021-12-03 11:09 | XMS_ITS | Encounter Summary ---
:1955 Author Organization [facility] Address [address] [place] [address] Care Team Providers Name Role Phone Unavailable Primary Care Provider Unavailable Encounter Details Date Type Department Care Team Description 06/30/2015 Hospital Encounter HX [facility] Jm Redding M.D. Social History Tobacco Use Types Packs/Day Years Used Date Smoking Tobacco: Never Assessed Sex Assigned at Date Recorded Not on file documented as of this encounter Last Filed Vital Signs Vital Sign Reading Time Taken Comments Blood Pressure 131/67 06/30/2015 8:32 AM CDT Pulse 72 06/30/2015 8:32 AM CDT Temperature - - Respiratory Rate - - Oxygen Saturation - - Inhaled Oxygen Concentration - - Weight 116 kg (256 lb 9.9 oz) 06/30/2015 8:32 AM CDT Height 176 cm (5' 9.29) 06/30/2015 8:32 AM CDT Body Mass Index 37.58 06/30/2015 8:32 AM CDT documented in this encounter Medications [...] ORAL) daily. documented as of this encounter H&P Lizbet Segura M.D. - 06/30/2015 8:24 AM CDT [id number] CHIEF COMPLAINT/REASON FOR VISIT Routine gynecologic exam. HISTORY OF PRESENT ILLNESS The patient is a 59-year-old female who presents today for a routine gynecologic exam. She has 2 major concerns. First, she states that she has been suffering from stress incontinence symptoms since my last child was born in 1989. She describes losing small amounts of urine with coughing and sneezing, and most frequently when she goes up and down stairs. She has to wear a pad and this is moist on an almost daily basis. She does find this frustrating, and would like to know what her options are forthis today. Second, she states that she has noticed worsening hot flashes over the past several months. She states that she thinks these are due to side effects from her prednisone, and she is currently trying to be tapered off of this. She is wondering whether or not this could be due to her decreasein hormones recently, and would also like this issue addressed today. These really can't get much worse. SYSTEMS REVIEW All systems are reviewed and found to be negative. PAST MEDICAL/SURGICAL HISTORY 1. Polymyalgia rheumatica with subsequent Shamir-like symptoms with steroid use. 2. Hypertension. 3. Impaired glucose tolerance. 4. Dyslipidemia. 5. Anxiety. Past surgical history: 1. Left meniscal repair in 2006. 2. Normal spontaneous vaginal delivery x3 in 1982, , and . PAST GYNECOLOGIC HISTORY: No history of abnormal Pap smears or STDs. The patient is postmenopausal approximately 9 years. MEDICATIONS Please see the electronic medical record. ALLERGIES No known drug allergies. SOCIAL HISTORY The patient does not smoke. 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 FAMILY HISTORY Negative for breast, colon, uterine or ovarian cancer. PHYSICAL EXAMINATION VITALS SIGNS: Height 176 cm, weight 116.4 kg. BMI 37.6. Blood pressure 131/67, heart rate 72, respiratory rate 16. HEENT: No evidence of thyromegaly. Oropharynx is clear with no lymphadenopathy. Pupils are equal andreactive to light and accommodation. CARDIOVASCULAR: Regular rate and rhythm. No murmurs. LUNGS: Clear to auscultation bilaterally. ABDOMINAL EXAM: Soft, nontender, nondistended. EXTREMITIES: Without edema. BREASTS: Soft, no palpable masses, discharge, tenderness, or skin changes bilaterally. No lymphadenopathy. GENITOURINARY EXAM: (Completed in the presence of Judi Correia): Normal external genitalia. A speculum shows a normal cervix and vagina. The patient has a grade 2 cystocele and grade 1 rectocele on exam. LABS: Urinalysis and urine culture are pending. IMPRESSION/REPORT/PLAN A 59-year-old female presents today for a routine gynecologic exam with multiple other issues. 1. Healthcare maintenance. Currently up-to-date. The patient recently received her colonoscopy and had a mammogram in early 2015 in [place]. She will be due for a Pap smear at the end of 2017, and her other medical issues such as hypertension and high cholesterol will be followed by Dr. Luna. 2. Stress incontinence. I handed out a bladder diary today, and we reviewed Kegel's exercises. The patient will follow up in 4 to 6 weeks to readdress this. We talked about behavioral methods along with surgical options as well. 3. Hormone replacement therapy. It is a bit unclear whether or not these are related to her post menopausal status. I told her that I was unfamiliar with this being a side effect of a prednisone taper,and the patient admits to having these before she went on steroids as well. We talked about options in this case, and have decided to increase her Prempro to an intermediate dose. A prescription was sent to her pharmacy, and we will also follow up on this issue in 6 weeks. We discussed the risks, benefits, and alternatives to Prempro. ADMINISTRATIVE BILLING Please note that an extra 10 minutes were spent discussing the patient's additional issues. Jm Gutierrez M.D./pos Electronically Signed By: LIZBET GUTEIRREZ MD On: 07/02/2015 07:24 AM Modified by and Electronically Signed by: LIZBET GUTIERREZ MD On: 07/02/2015 07:23 AM Source: [facility] MHSDOLBEYNONRADSYS Document Id: [id number] documented in this encounter Miscellaneous Notes Miscellaneous - Vanessa Levine R.N. - 07/24/2015 10:58 AM CDT Med Management Document Contains Addenda Addendum by LIZBET GUTIERREZ MD on July 24, 2015 11:02:27 CDT From: LIZBET GUTIERREZ MD Sent: 07/24/2015 11:02:27 CDT Subject: RE:Med Management Approved Order:conjugated estrogens-medroxyPROGESTERone (Prempro 0.45 mg-1.5 mg oral tablet) 1 tab(s) PO Daily Qty: 90 tab(s) Refills: 0 Substitutions Allowed Route To Pharmacy - [id number] Signed by LIZBET GUTIERREZ MD 07/24/2015 11:02:21 From: VANESSA LEVINE RN ([facility] Nurse) To: LIZBET GUTIERREZ MD; Sent: 07/24/2015 10:58:29 CDT Subject: Med Management On hold pending signature Order:conjugated estrogens-medroxyPROGESTERone (Prempro 0.45 mg-1.5 mg oral tablet) 1 tab(s) PO Daily Qty: 90 tab(s) Refills: 0 Substitutions Allowed Route To Pharmacy - [id number] Pharmacist from [facility] pharmacy in [place] calling to request a 90 day supply of Prempro. She states thept's insurance is ending soon and would like enough medication to get her through until her new insurance starts. Rx was originally sent on 06/30/15 for Prempro #30 with 1 refill and pt was instructed to f/u in office in 6 weeks to reevaluate symptoms. Unable to send 90 day supply per protocol. Rx proposed. Source: [facility] POWERCHART Document Id: [id number] Electronically signed by Ryan, [facility] Freelance Art Director [id number] at 08/07/2016 11:45 AM CDT Miscellaneous - Yanira Bay - 07/18/2015 11:[address] Moga: Document Contains Addenda Addendum by VANESSA LEVINE RN on July 18, 2015 11:53:49 CDT Reviewed UA /UC done at last visit. Explained some incontinence can be caused from asympomatic UTIsand Dr Gutierrez was checking to see if that was the issue. She verbalizes understanding. She is wondering where we could refer her for surgery since she did not feel Dr Gutierrez was interested in doing surgery. Instructed pt that the plan was for her to complete a bladder diary and return to clinic for further evaluation. With the information gathered from diary and f/u visit then a plan would be discussed for treatment options. She states she did not do the bladder diary because it is all the time and she feels uncomfortable speaking to a man about this issue. Discussed our RESIDENTIAL DIRECT SUPPORT PROFESSIONAL in the office has alot ofurinary incontinence experience and would be more than happy to f/u with pt regarding her incontinence issues. Pt again wondering where she would send her for surgery. Instructed pt that would depend on what procedure is needed but she would first have to check with her insurance before a referral could be made. She verbalizes understanding and states her insurance is changing at the end of the monthso she is unsure of what is going to happen at that time. From: YANIRA BAY ([facility]) To: [facility] Nurse; Cc: [facility]; Sent: 07/18/2015 11:40:40 CDT Subject: Dr. Gutierrez: Actions: Notify patient- refer to General Message If you need a prescription refill please call your pharmacy. Please allow 3 business days for processing. Call Center Template: ?? May we leave a message for you on this phone? yes ?? How soon do you need a call back? ?? What can I help you with today? Gloria was curious why Dr. Gutierrez ran a specific lab. The result ended up being high when she checked on her Patient Portal so she would like to discuss that as well. Please call Gloria. ?? If Medication Refill: o What is the medication? o What pharmacy do you use? o Have you contacted your pharmacy regarding this request? I will send this information to the appropriate staff member who will look into your concern. If thenurse needs to talk to you he or she will call you back within two hours. Thank you for calling [facility]. Source: [facility] Proclivity SystemsCHART Document Id: [id number] Miscellaneous - Judi Correia R.M.A. - 06/30/2015 9:09 AM CDT Visual Education Teacher Documentation Visual Education Teacher Documentation Entered On: 06/30/2015 9:09 CDT Performed On: 06/30/2015 9:09 CDT by JUDI CORREIA Visual Education Teacher Documentation Exam/Procedure Performed : Breast exam, and pelvic exam. CD Visual Education Teacher Present : Yes Present in Room During Exam/Procedure : Alone JUDI CORREIA - 06/30/2015 9:09 CDT Source: [facility] POWERCHART Document Id: [id number] CDT!5 Mallika - Lizbet Gutierrez M.D. - 06/30/2015 9:07 AM CDT Ambulatory Patient Summary [facility] [address] [id number] Visit Information Name: GLORIA BONILLA [facility] Number: [id number] Current Date: 06/30/2015 09:07:26 Physicians Attending Provider: LIZBET GUTIERREZ MD Primary Care Provider: CELI LUNA MD [...] Oral, once a day conjugated estrogens-medroxyPROGESTERone (Prempro 0.3 mg-1.5 mg oral tablet) 1 Tablet(s), Oral, oncea day diphenhydrAMINE (Benadryl) See Instructions ii po daily at HS for sleeping emollients, topical (Tetrix Cream topical kit) See Instructions apply to skin of hands Daily multivitamin (Super B Complex) 1 Tablet(s), Oral, once a day multivitamin with minerals (Calcium, Magnesium and Zinc oral tablet) 1 Tablet(s), Oral, once a day *predniSONE (predniSONE 1 mg oral tablet) 1 Tablet(s), Oral, once a day predniSONE (predniSONE 5 mg oral tablet) 2 Tablet(s), Oral, once a day propranolol (Inderal LA 120 mg oral capsule, extended release) 1 cap, Oral, once a day triamterene-hydrochlorothiazide (triamterene-hydrochlorothiazide 37.5 mg-25 mg oral tablet) 1 Tablet(s), Oral, once a day as needed for Swelling venlafaxine (Effexor 75 mg oral tablet) 1 Tablet(s), Oral, once [...] the Following Medications: Medication list as of 06-30-15 09:07 Attention: If you have any medications at [...] Electronically Signed By: LIZBET GUTIERREZ MD Signed On:30-JUN-2015 09:07:23 Your Allergies & Intolerances Substance Reaction Symptoms [...] if you dont have one. Go to [email or web address] and click on Create Your Account. Then, follow the directions to complete the online form. Youll be asked for your [facility] number which you can find at the top of this document. Your Goals/Additional instructions: Source: [facility] POWERCHART Document Id: [id number] Miscellaneous - Lizbet Gutierrez M.D. - 06/30/2015 9:07 AM CDT Ambulatory Discharge Medication List [address] [id number] Visit Information Name: GLORIA BONILLA [facility] Number: [id number] Visit Date: 06/30/2015 09:07:25 Attending Provider: LIZBET GUTIERREZ MD Primary Care Provider: CELI LUNA MD RADHA GLORIA RAMOS has been given the following list [...] Oral, once a day conjugated estrogens-medroxyPROGESTERone (Prempro 0.3 mg-1.5 mg oral tablet) 1 Tablet(s), Oral, oncea day diphenhydrAMINE (Benadryl) See Instructions ii po daily at HS for sleeping emollients, topical (Tetrix Cream topical kit) See Instructions apply to skin of hands Daily multivitamin (Super B Complex) 1 Tablet(s), Oral, once a day multivitamin with minerals (Calcium, Magnesium and Zinc oral tablet) 1 Tablet(s), Oral, once a day *predniSONE (predniSONE 1 mg oral tablet) 1 Tablet(s), Oral, once a day predniSONE (predniSONE 5 mg oral tablet) 2 Tablet(s), Oral, once a day propranolol (Inderal LA 120 mg oral capsule, extended release) 1 cap, Oral, once a day triamterene-hydrochlorothiazide (triamterene-hydrochlorothiazide 37.5 mg-25 mg oral tablet) 1 Tablet(s), Oral, once a day as needed for Swelling venlafaxine (Effexor 75 mg oral tablet) 1 Tablet(s), Oral, once [...] the Following Medications: Medication list as of 06-30-15 09:07 Attention: If you have any medications at [...] Electronically Signed By: LIZBET GUTIERREZ MD Signed On:30-JUN-2015 09:07:23 Additional Information: Source: [facility] POWERCHART Document Id: [id number] Miscellaneous - Josie Ortiz RAaronNAaron - 06/30/2015 8:42 AM CDT Health Assessment Health Assessment Entered On: 06/30/2015 8:44 CDT Performed On: 06/30/2015 8:42 CDT by JOSIE ORTIZ RN Health Assessment Complete Health Assessment Complete or Modified : Annual Health Assessment Annual Health Assessment Completed : Yes JOSIE ORTIZ RN - 06/30/2015 8:42 CDT Nutrition Nutrition Risk Factors by History Adult : None JOSIE ORTIZ RN - 06/30/2015 8:42 CDT Functional Current Daily Living Assistance : None JOSIE ORTIZ RN - 06/30/2015 8:42 CDT Dependent Habits Exposure to Tobacco Smoke : Other: never Smoking Status : Never smoker Tobacco 2A : No Tobacco Use/Currently Using : No Tobacco Use/Last 30 Days : No Tobacco Use/Last 12 months : No JOSIE ORTIZ RN - 06/30/2015 8:42 CDT Caffeine Use Grid Caffeine Use : Current Type : Coffee Frequency : Daily Amount : couple cups daily JOSIE ORTIZ RN - 06/30/2015 8:42 CDT Alcohol Use : Yes JOSIE ORTIZ RN - 06/30/2015 8:42 CDT Recreational Drug Use Grid Drug Use : None JOSIE ORTIZ RN - 06/30/2015 8:42 CDT AUDIT Tool How Often Do You Have A Drink : 4 or more times a week How Many Drinks in a Day When Drinking : 1 or 2 Six or More Drinks On One Occassion : Never Audit Phase 1 Score : 4 JOSIE ORTIZ RN - 06/30/2015 8:42 CDT Psychosocial Domestic Abuse Concerns : None Behavioral Health Screen/Safety Assmt : No Pentecostalism Preference : No Pentecostalism Affiliation JOSIE ORTIZ RN - 06/30/2015 8:42 CDT Advance Directive Advanced Directives : No Advance Directive Additional Information : Yes JOSIE ORTIZ RN - 06/30/2015 8:42 CDT Educ Needs Learning Style Preference Adult Grid Patient : None Family : None JOSIE ORTIZ RN - 06/30/2015 8:42 CDT Source: [facility] POWERCHART Document Id: [id number] CDT!41 Miscellaneous - Josie Ortiz RAaronNAaron - 06/30/2015 8:32 AM CDT Adult Continuous Conveyor Screen Drier Intake/History Adult Continuous Conveyor Screen Drier Intake/History Entered On: 06/30/2015 8:36 CDT Performed On: 06/30/2015 8:32 CDT by JOSIE ORTIZ RN Intake Chief Complaint : Pt is here today for annual exam with pap smear LMP Date : Postmenopausal Ambulatory Intake Additional Information : last pap smear 10/15/13 = negative all normal Peripheral Pulse Rate : 72 /min Systolic Blood Pressure : 131 mmHg Diastolic Blood Pressure : 67 mmHg NIBP Mean : 88 mmHg BP Location : Right upper extremity Blood Pressure Cuff Size : Large Height : 176 cm(Converted to: 5 ft 9 inch(es), 69 inch(es)) Actual Weight : 116.4 kg(Converted to: 256 lb 10 oz) Weight Source : Standing scale Dosing Weight Clinic : 116.4 kg Clinic BSA : 2.39 Body Mass Index : 37.58 kg/m2 JOSIE ORTIZ RN - 06/30/2015 8:32 CDT General Info Information Given By : Patient Languages : Faroese Is Patient Female and 13-50 no hysterectomy : No JOSIE ORTIZ RN - 06/30/2015 8:32 CDT Subjective Pain Symptoms : Yes JOSIE ORTIZ RN - 06/30/2015 8:32 CDT Pain Scale Pain Scale Verbal 0-10 : Open JOSIE ORTIZ RN - 06/30/2015 8:32 CDT Pain Pain Assessment Grid Pain 1 Location : Other: polymyalgia rheumatica (Comment: Tamara [JOSIE ORTIZ RN - 06/30/2015 8:32 CDT] ) Intensity : 6 JOSIE ORTIZ RN - 06/30/2015 8:32 CDT Dependent Habits Exposure to Tobacco Smoke : Other: never Smoking Status : Never smoker Tobacco 2A : No Tobacco Use/Currently Using : No Tobacco Use/Last 30 Days : No Tobacco Use/Last 12 months : No Alcohol Use : Yes JOSIE ORTIZ RN - 06/30/2015 8:32 CDT Caffeine Use Grid Caffeine Use : Current Type : Coffee Frequency : Daily Amount : couple cups daily JOSIE ORTIZ RN - 06/30/2015 8:32 CDT Recreational Drug Use Grid Drug Use : None JOSIE ORTIZ RN - 06/30/2015 8:32 CDT Source: [facility] POWERCHART Document Id: [id number] CDT!47 documented in this encounter Plan of Treatment Not on filedocumented as of this encounter Procedures Procedure Name Priority Date/Time Associated Comments Diagnosis URINALYSIS WITH Routine 06/30/2015 9:15 AM Result s for this MICROSCOPIC CDT procedure are i n the results section. BACTERIAL CULTURE, Routine 06/30/2015 9:15 AM Res ults for this AEROBIC, URINE CDT procedure are in the results section. documented in this encounter Results (ABNORMAL) Urinalysis, Complete, Includes Microscopic (06/30/2015 9:15 AM CDT) [facility] Method Time Signature HXUr Color Yellow Colorless POWERCHART Clarity Cloudy (A) Clear POWERCHART Glucose Negative Negative POWERCHART MGDL HXBILIRUBIN Negative Negative POWERCHART Ketones, QL(U) Negative Negative POWERCHART MGDL Specific 1.015 POWERCHART [place], POCT, U HXBLOOD Negative Negative POWERCHART pH, POCT, Urine 6.5 <5.0 POWERCHART Protein, Ur, Negative Negative POWERCHART Dip MGDL Urobilinogen 0.2 0.2 MGDL POWERCHART HXNITRITE Negative Negative POWERCHART Leukocyte Negative Negative POWERCHART Esterase HXUR WBC. None Seen None Seen POWERCHART HPF HXUR RBC. None Seen None Seen POWERCHART HPF HXUR Bacteria, Present (A) None Seen POWERCHART Squamous 11-20 (A) None Seen POWERCHART Epithelial HPF Specimen (Source) Anatomical Collection Method Collection Time Re ceived Time Location / / Volume Laterality Urine, First 06/30/2015 9:15 AM Voided CDT Jm Gutierrez M.D. LAB URINE ORDERABLES Performing Organization Address City/State/ZIP Code Phon e Number POWERCHART Bacterial Culture, Aerobic, Urine (06/30/2015 9:15 AM CDT) [facility] Method Time Signature Bacterial POWERCHART Culture, Aerobic, Urine HXFinal Mixed amy. No POWERCHART further studies unless notified. HXFinal [place] POWERCHART Microbiology laboratory [phone]. Specimen (Source) Anatomical Collection Method Collection Time Re ceived Time Location / / Volume Laterality Urine, First 06/30/2015 9:15 AM Voided CDT Jm Gutierrez M.D. LAB MICROBIOLOGY - GENERAL O RDERABLES Performing Organization Address City/State/ZIP Code Phon e Number POWERCHART documented in this encounter Visit Diagnoses Not on filedocumented in this encounter Additional Health Concerns Assessment Noted Time PHQ-9 Depression Total Score: 2 07/15/2014 11:54 AM CD T documented as of this encounter
--- OUTSIDE RECORDS SUMMARY | 2021-12-03 11:09 | XMS_ITS | Encounter Summary ---
:1955 Author Organization [facility] Address [address] [place] [address] Care Team Providers Name Role Phone Unavailable Primary Care Provider Unavailable Encounter Details Date Type Department Care Team Description 08/12/[address] [facility] Kalpana Sanders M.D. [address] [place], [place] [phone] (Wo rk) Social History Tobacco Use Types [...] - - Height 176 cm (5' 9.29) 08/12/2015 11:25 AM CDT Body Mass Index - - [...] Associated Comments Diagnosis SEDIMENTATION RATE, B Routine 08/12/2015 11:30 Re sults for this AM CDT procedure are i n the results section. C-REACTIVE PROTEIN Routine 08/12/2015 11:30 Resul ts for this (CRP), S/P AM CDT procedure are i n the results section. documented in this encounter Results Sedimentation Rate (08/12/2015 11:30 AM CDT) Analysis Performed At Patho logist Time Signature Sedimentation 29 0 - 29 POWERCHART Rate, B [facility] Specimen (Source) Anatomical Collection Method Collection Time Re ceived Time Location / / Volume Laterality Blood 08/12/2015 11:30 AM CDT Nicole ParisB.S. LAB BLOOD ADD-ON Performing Organization Address City/State/ZIP Code Phon e Number POWERCHART (ABNORMAL) CRP (C-Reactive Protein) (08/12/2015 11:30 AM CDT) P athologist Signature C-Reactive 14.4 (H) <=4.9 MGL POWERCHART Protein (CRP), S Specimen (Source) Anatomical Collection Method Collection Time Re ceived Time Location / / Volume Laterality Blood 08/12/2015 11:30 AM CDT Nicole ParisB.S. LAB BLOOD ADD-ON Performing Organization Address City/State/ZIP Code Phon e Number POWERCHART documented in this encounter Visit Diagnoses Not on filedocumented in this encounter Additional Health Concerns Assessment Noted Time PHQ-9 Depression Total Score: 2 07/15/2014 11:54 AM CD T documented as of this encounter
--- OUTSIDE RECORDS SUMMARY | 2021-12-03 11:09 | XMS_ITS | Encounter Summary ---
:1955 Author Organization [facility] Address [address] [place] [address] Care Team Providers Name Role Phone Unavailable Primary Care Provider Unavailable Encounter Details Date Type Department Care Team Description 06/30/2015 Hospital Encounter HX NO MAPPING Jm Gutierrez M.D. Social History Tobacco Use Types Packs/Day [...] Miscellaneous - Conversion, Historical Provider Ser - 06/30/2015 11:59 PM CDT Coding Summary-Paper Based CODING DATE: 07/09/2015 FINAL [facility] STATUS: * Discharged to Home or Self Care PAYOR: [employer] ADMIT DX: REASON FOR VISIT DX: FINAL DX: PRINCIPAL: N39.3 Stress incontinence (female) (male) SECONDARY: PROCEDURES DOCTOR NAME DATE NOTE: The code number assigned matches the documented diagnosis and / or procedure in the patient's chart. However, the narrative phrase printed from the coding software may appear abbreviated, or result in slightly different terminology. Coded By: SHARIF LIMA Date Saved: 07/09/2015 03:04 pm Source: [facility] POWERCHART Document Id: [id number] documented in this encounter Plan of Treatment Not on filedocumented as of this encounter Visit Diagnoses Not on filedocumented in this encounter Additional Health Concerns Assessment Noted Time PHQ-9 Depression Total Score: 2 07/15/2014 11:54 AM CD T documented as of this encounter
--- OUTSIDE RECORDS SUMMARY | 2021-12-03 11:09 | XMS_ITS | Encounter Summary ---
:1955 Author Organization [facility] Address [address] [place] [address] Care Team Providers Name Role Phone Unavailable Primary Care Provider Unavailable Encounter Details Date Type Department Care Team Description 07/14/2015 Hospital Encounter HX [facility] Kalpana Sanders M.D. [address] [place], [place] [phone] (Wo rk) Social History [...] - - Height 176 cm (5' 9.29) 07/14/2015 11:11 AM CDT Body Mass Index - - [...] of this encounter Miscellaneous Notes Miscellaneous - Zena Garcia, L.P.N. - 07/24/2015 10:53 AM CDT Luna-refill Document Contains Addenda Addendum by CELI LUNA MD on July 25, 2015 12:49:16 CDT From: CELI LUNA MD Sent: 07/25/2015 12:49:16 CDT Subject: RE:FW: Med Management:Propranolol Approved Order:propranolol (Inderal LA 120 mg oral capsule, extended release) 1 cap(s) PO Daily Qty: 90 cap(s) Refills: 0 Substitutions Allowed Route To Pharmacy - [id number] Signed by CELI LUNA MD 07/25/2015 12:49:08 Addendum by RASHID COOMBS RN on July 25, 2015 10:41:45 CDT From: RASHID COOMBS RN ([facility] Nurse) To: CELI LUNA MD; Sent: 07/25/2015 10:41:45 CDT Subject: FW: Med Management:Propranolol Addendum by RASHID COOMBS RN on July 25, 2015 10:41:27 CDT On hold pending signature Order:propranolol (Inderal LA 120 mg oral capsule, extended release) 1 cap(s) PO Daily Qty: 90 cap(s) Refills: 0 Substitutions Allowed Route To Pharmacy - [id number] Addendum by CELI LUNA MD on July 25, 2015 10:24:15 CDT From: CELI LUNA MD To: [facility] Nurse; Sent: 07/25/2015 10:24:15 CDT Subject: RE: Med Management:Propranolol pls resend tony. thanks Addendum by CORRY HOOD on July 25, 2015 9:16 CDT Pharmacist from [facility] called. Pts insurance is expiring very soon which is why they are requesting a 90 day supply so it can get pt through until her new insurance kicks in. Requesting this be resent for 90 day by this afternoon. Addendum by TONY DODSON RN on July 24, 2015 15:35:24 CDT From: TONY DODSON RN ([facility] Nurse) To: CELI LUNA MD; Sent: 07/24/2015 15:35:24 CDT Subject: FW: Med Management:Propranolol Pt would like a 90 day supply. Addendum by CELI LUNA MD on July 24, 2015 15:16:37 CDT From: CELI LUNA MD Sent: 07/24/2015 15:16:37 CDT Subject: RE:Med Management:Propranolol Approved Order:propranolol (Inderal LA 120 mg oral capsule, extended release) 1 cap(s) PO Daily Qty: 30 cap(s) Refills: 0 Substitutions Allowed Route To Pharmacy - [id number] Signed by CELI LUNA MD 07/24/2015 15:16:12 Addendum by TONY DODSON RN on July 24, 2015 11:08:13 CDT From: TONY DODSON RN ([facility] Nurse) To: CELI LUNA MD; Sent: 07/24/2015 11:08:13 CDT Subject: Med Management:Propranolol Not sure if pt has seen you yet. No appt scheduled On hold pending signature Order:propranolol (Inderal LA 120 mg oral capsule, extended release) 1 cap(s) PO Daily Qty: 30 cap(s) Refills: 0 Substitutions Allowed Route To Pharmacy - [id number] Addendum by TONY DODSON RN on July 24, 2015 11:06:06 CDT On hold pending signature Order:propranolol (Inderal LA 120 mg oral capsule, extended release) 1 cap(s) PO Daily Qty: 90 cap(s) Refills: 1 Substitutions Allowed Route To Pharmacy - [id number] From: ZENA GARCIA LPN To: [facility]; Sent: 07/24/2015 10:53:45 CDT Subject: Luna-refill Caller is: ( ) Patient ( ) Mother ( ) Father ( ) Spouse ( ) Daughter ( ) Son ( x ) Pharmacy ( ) Other: Provider: [facility]: [place] Name of Medications Needing Refill:propranolol (pt wants a 90 day supply please) Last Refill Date: 05/22/15 Additional Information: Last / Future Appointment:06/30/15 Disposition: ( x ) Send to Pharmacy ( ) Call to Pharmacy ( ) 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 C-REACTIVE PROTEIN Routine 07/14/2015 11:15 Resul ts for this (CRP), S/P AM CDT procedure are i n the results section. documented in this encounter Results (ABNORMAL) Sedimentation Rate (07/14/2015 11:15 AM CDT) Patholo gist Method Time Signature Sedimentation 36 (H) 0 - 29 POWERCHART Rate, B MMHR Specimen (Source) Anatomical Collection Method Collection Time Re ceived Time Location / / Volume Laterality Blood 07/14/2015 11:15 AM CDT [facility] BLOOD ADD-ON Performing Organization Address City/State/ZIP Code Phon e Number POWERCHART (ABNORMAL) CRP (C-Reactive Protein) (07/14/2015 11:15 AM CDT) P athologist Signature C-Reactive 15.3 (H) <=4.9 MGL POWERCHART Protein (CRP), S Specimen (Source) Anatomical Collection Method Collection Time Re ceived Time Location / / Volume Laterality Blood 07/14/2015 11:15 AM CDT Nicole ParisB.S[facility] LAB BLOOD ADD-ON Performing Organization Address City/State/ZIP Code Phon e Number POWERCHART documented in this encounter Visit Diagnoses Not on filedocumented in this encounter Additional Health Concerns Assessment Noted Time PHQ-9 Depression Total Score: 2 07/15/2014 11:54 AM CD T documented as of this encounter
--- OUTSIDE RECORDS SUMMARY | 2021-12-03 11:09 | XMS_ITS | Encounter Summary ---
:1955 Author Organization [facility] Address [address] [place] [address] Care Team Providers Name Role Phone Unavailable Primary Care Provider Unavailable Encounter Details Date Type Department Care Team Description 11/22/2014 Hospital Encounter HX [facility] Maninder Ochoa M.D. Social [...] - - Height 178 cm (5' 10.08) 11/22/2014 10:57 AM CDT Body Mass Index - - documented in this encounter Miscellaneous Notes Miscellaneous - Maninder Ochoa M.D. - 11/25/2014 8:19 AM CDT Results Notification Document Contains Addenda Addendum by CITLALI GURROLA on 25 November 2014 11:36:01 CDT Discussed with patient at visit today From: MANINDER OCHOA MD To: CITLALI GURROLA; Sent: 11/25/2014 08:19:16 CDT ! Show up: 11/25/2014 08:19:16 CDT Subject: Results Notification Actions: Notify patient-refer to General Message Reminder Comments: appt today Results: Date Result Name Ind Value Ref Range 11/22/2014 11:00 Sed Rate (H) 35 mm/hr (0 - 29) Source: [email or web address] Document Id: [id number] documented in this encounter Plan of Treatment Not on filedocumented as of this encounter Procedures Procedure Name Priority Date/Time Associated Comments Diagnosis SEDIMENTATION RATE, B Routine 11/22/2014 11:00 Re sults for this AM CDT procedure are i n the results section. documented in this encounter Results (ABNORMAL) Sedimentation Rate (11/22/2014 11:00 AM CDT) [facility] gist Method Time Signature Sedimentation 35 (H) 0 - 29 POWERCHART Rate, B MMHR Specimen (Source) Anatomical Collection Method Collection Time Re ceived Time Location / / Volume Laterality Blood 11/22/2014 11:00 AM CDT Maninder Ochoa M.D. LAB BLOOD ADD-ON Performing Organization Address City/State/ZIP Code Phon e Number POWERCHART documented in this encounter Visit Diagnoses Not on filedocumented in this encounter Additional Health Concerns Assessment Noted Time PHQ-9 Depression Total Score: 2 07/15/2014 11:54 AM CD T documented as of this encounter
--- OUTSIDE RECORDS SUMMARY | 2021-12-03 11:10 | XMS_ITS | Encounter Summary ---
:1955 Author Organization [facility] Address [address] [place] [address] Care Team Providers Name Role Phone Unavailable Primary Care Provider Unavailable Encounter Details Date Type Department Care Team Description 10/15/2013 Hospital Encounter HX NO MAPPING Jm Gutierrez M.D. Social History Tobacco Use Types Packs/Day Years Used Date Smoking Tobacco: Never Assessed Sex Assigned at Date Recorded Not on file documented as of this encounter Plan of Treatment Not on filedocumented as of this encounter Visit Diagnoses Not on filedocumented in this encounter
--- OUTSIDE RECORDS SUMMARY | 2021-12-03 11:10 | XMS_ITS | Encounter Summary ---
:1955 Author Organization [facility] Address [address] [place] [id number] Care Team Providers Name Role Phone No Ref-Primary, Physician Primary Care Provider [phone] Encounter Details Date Type Department Care Team Description 11/11/2021 Travel Social History Tobacco Use Types Packs/Day Years Used Date Never Smoker Smokeless Tobacco: Never Used Alcohol Use Standard Drinks/Week Comments Yes 0 (1 standard drink = 0.6 oz pure alcoho l) 4-5 glasses of wine a week Alcohol Habits Answer Date Recorded How often do you have a drink containing Not asked alcohol? How many drinks containing alcohol do you Not asked have on a typical day when you are drinking? How often do you have six or more drinks on Not asked one occasion? Comment: 4-5 glasses of wine a week 08/22/2009 Sex Assigned at Date Recorded Not on file COVID-19 Exposure Response Date Recorded In the last 10 days, have you been in contact with No / Unsu re 11/11/2021 2:46 PM CDT someone who was confirmed or suspected to have Coronavirus/COVID-19? documented as of this encounter Plan of Treatment Not on filedocumented as of this encounter Visit Diagnoses Not on filedocumented in this encounter Care Teams Embedded Software Design Engineer Relationship Specialty Start Date End Date No Ref-Primary, Physician PCP - General 04/29/17 documented as of this encounter
--- OUTSIDE RECORDS SUMMARY | 2021-12-03 11:10 | XMS_ITS | Encounter Summary ---
:1955 Author Organization [facility] Address [facility] [place] [address] Care Team Providers Name Role Phone No Ref-Primary, Physician Primary Care Provider [phone] Reason for Visit Reason Comments Post Op Complications Pt here today for numbness i n private area. Encounter Details Date Type Department Care Team Description 11/11/2021 Office Visit [facility] Jennifer Gastelum See Urinar y incontinence, unspecified type (Primary Dx); Urology Clinic Reema Madrid MD Decreased sensation [address] [facility] [address] [facility] [address] [place] [address] [place], [place] [phone] [id number] (Wo rk) Social History Tobacco Use Types [...] Sign Reading Time Taken Comments Blood Pressure 124/70 11/11/2021 3:01 PM CDT Pulse 69 11/11/2021 3:01 PM CDT Temperature - - Respiratory Rate - - Oxygen Saturation 96% 11/11/2021 3:01 PM CDT Inhaled Oxygen Concentration - - Weight 98.9 kg (218 lb) 11/11/2021 3:01 PM CDT Height 177.8 cm (5' 10) 11/11/2021 3:01 PM CDT Body Mass Index 31.28 11/11/2021 3:01 PM CDT documented in this encounter Patient Instructions Patient InstructionsJennifer Gastelum MD - 11/11/2021 3:00 PM CDT Please do the 3 day bladder diary Please do the video urodynamics Please consider a daily fiber supplement that you mix in the water Please return to see me afterwards Websites with free information: [place] [employer] patient website: www.voicesforpfd.org Total Control Program: www.totalcontrolprogram.com Clinic [phone] It was a pleasure meeting with you today. Thank you for allowing me and my team the privilege of caring for you today. YOU are the reason we are here, and I truly hope we provided you with the excellent service you deserve. Please let us know if there is anything else we can do for you so that we can be sure you are leaving completely satisfied with your care experience. documented in this encounter Progress Notes Jennifer Gastelum MD - 11/11/2021 3:00 PM CDT November 11, 2021 Referring Provider: No referring provider defined for this encounter. Primary Care Provider: No Ref-Primary, Physician Assessment & Plan Urinary incontinence, unspecified type Unclear etiology, has been worse since back surgery so recommend UDS to assess bladder function - MEASURE POST-VOID RESIDUAL URINE/BLADDER CAPACITY, US NON-IMAGING ([id number]) Decreased sensation Unclear etiology pattern not fully consistent with her lumbar surgery. Discussed that we can do UDS to assess bladder function and leakage but may not change sensation and will not give us an etiology 45 minutes were spent on this day of the encounter in reviewing the EMR including prior urology notes, neurosurgery notes, direct patient care, coordination of care and documentation Jennifer Gastelum MD MPH (she/her/hers) Director Of Online Merchandising of Urology [facility] HPI: Gloria Bonilla is a 66 year old female who presents for evaluation of her pelvic floor symptoms. She is accompanied by her She had L2-[address] Khan at [facility] 04/27/21. Since then she has had urinary incontinence and decreased sensation per the postop note scanned in ([facility] Jin Ms Booth BURGLAR ALARM OPERATOR 05/18/21 note reviewed). Per patient she did require some catheterizations in the immediate postoperative period. She states that she has decreased perineal sensation also numb area in her upper right thigh. Fecal incontinence with loose stool since after surgery but this is improving 3 Currently goes to the washroom every 30-45 minutes to avoid leakage. 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 She saw Dr Lopez back in June ([facility] At that time since it was recently after surgery the recommendation was to monitor Past Medical History: Diagnosis Date ??? Cervicalgia ??? Complication of anesthesia Wakes up crying uncontrollably ??? DDD (degenerative disc disease), cervical ??? Leiomyoma of uterus, unspecified ??? Tremor, essential Left hand ??? 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 ARTHROPLASTY KNEE Left 08/15/2017 Procedure: ARTHROPLASTY KNEE; Left total knee arthroplasty ; Surgeon: Russell Maria MD; Location: [facility] OR ??? ARTHROSCOPY KNEE RT/LT 04/14/2005 Left knee meniscus repair ??? BACK SURGERY N/A ??? FOOT SURGERY Right ??? giant cell arthorititis N/A ??? ZZHC COLONOSCOPY THRU STOMA, DIAGNOSTIC 03/21/2003 Normal Social History Socioeconomic History ??? Marital status: Spouse name: Sebas ??? Number of children: 3 ??? Years of education: Not on file ??? Highest education level: Not on file Occupational History ??? 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 Smoking status: Never Smoker ??? Smokeless tobacco: Never Used Substance and Sexual Activity ??? Alcohol use: Yes Comment: 4-5 glasses of wine a week ??? Drug use: No ??? Sexual activity: Not on file Other Topics Concern ??? Parent/sibling w/ CABG, AR or angioplasty before 65F 55M? Not Asked Social History Narrative Harris exercise (like Pilates), twice weekly. Social Determinants of Health Financial Resource Strain: Not on file Food Insecurity: Not on file Transportation Needs: Not on file Physical Activity: Not on file Stress: Not on file Social Connections: Not on file Intimate Partner Violence: Not on file Housing Stability: Not on file Family History Problem Relation Age of Onset ??? C.A.D. Father age 67, first AR in his 20's or 30's (?); had a history of scarlet fever ??? Arthritis Mother age 87, had severe RA ??? Cerebrovascular Disease Mother TIA ??? Hypertension Son 2 SONS WITH ENLARGED VENTRICLE - TREATED BY CARDS AT [facility] ??? C.A.D. Brother Born 1940, AR at age 69, also lumbar fusion ??? Family History Negative Sister One at age 2 yo. ??? Family History Negative Brother Born 194 ??? Thyroid Disease Sister Born 1953, lumbar fusion ??? Thyroid Disease Sister Born 1947, lumbar fusion ROS Allergies Allergen Reactions ??? Demerol Nausea and Vomiting ??? Percodan [Oxycodone-Aspirin] Nausea and Vomiting Current Outpatient Medications Medication ??? Calcium Carbonate (CALCIUM 600 PO) ??? DiphenhydrAMINE HCl (BENADRYL PO) ??? hydrOXYzine (ATARAX) 25 MG tablet ??? MULTIPLE VITAMINS/IRON PO ??? PRIMIDONE PO ??? propranolol (INDERAL LA) 120 MG 24 hr capsule ??? venlafaxine (EFFEXOR-XR) 75 MG 24 hr capsule ??? VITAMIN D, CHOLECALCIFEROL, PO ??? acetaminophen (TYLENOL) 325 MG tablet ??? B Complex-C (SUPER B COMPLEX PO) ??? mupirocin (BACTROBAN) 2 % nasal ointment ??? naproxen (NAPROSYN) 500 MG tablet ??? oxyCODONE IR (ROXICODONE) 5 MG tablet ??? senna-docusate (SENOKOT-S;PERICOLACE) 8.6-50 MG per tablet ??? triamterene-hydrochlorothiazide (MAXZIDE-25) 37.5-25 MG per tablet ??? venlafaxine (EFFEXOR-ER) 150 MG TB24 24 hr tablet No current facility-administered medications for this visit. BP 124/70 Pulse 69 Ht 1.778 m (5' 10) Wt 98.9 kg (218 lb) LMP 12/22/2008 SpO2 96% BMI 31.28 kg/m?? GENERAL: healthy, alert and no distress EYES: Eyes grossly normal to inspection, conjunctivae and sclerae normal HENT: normal cephalic/atraumatic. External ears, nose and mouth without ulcers or lesions. RESP: no audible wheeze, cough, or visible cyanosis. No visible retractions or increased work of breathing. Able to speak fully in complete sentences. NEURO: Cranial nerves grossly intact, mentation intact and speech normal PSYCH: mentation appears normal, affect normal/bright, judgement and insight intact, normal speech and appearance well-groomed ABD: soft, nontender, non distended : normal external genitalia, speculum and bimanual exam are unremarkable. Negative ESST. She has decreased perineal sensation PVR 30 mL by bladder scan CC Patient Care Team: No Ref-Primary, Physician as PCP - General documented in this encounter Nursing Notes Jaqui Anthony CMA - 11/11/2021 3:00 PM CDT Chief Complaint Patient presents with ??? Post Op Complications Pt here today for numbness in private area. Jaqui Anthony CMA Mikayla Parker CMA - 11/11/2021 3:00 PM CDT PVR 30ML Patient here today to discuss the numbness and leakage. MADHAVI Acosta documented in this encounter Plan of Treatment Not on filedocumented as of this encounter Procedures Procedure Name Priority Date/Time Associated Diagnosis Comme nts MI MEASURE POST-VOID Routine 11/11/2021 3:27 PM CDT Urinary in continence, RESIDUAL URINE/BLADDER unspecified type CAPACITY, US NON-IMAGING documented in this encounter Visit Diagnoses Diagnosis Urinary incontinence, unspecified type - Primary Decreased sensation Disturbance of skin sensation documented in this encounter Care Teams Supervisor Blood Relationship Specialty Start Date End Date No Ref-Primary, Physician PCP - General 04/29/17 documented as of this encounter
--- OUTSIDE RECORDS SUMMARY | 2021-12-03 11:10 | XMS_ITS | Clinical Summary ---
:1955 Author Organization [facility] [place] [address] Care Team Providers Name Role Phone Jose R Wells MD Primary Care Provider Allergies Active Allergy Reactions Severity Noted Date Comments Meperidine Nausea And Vomiting 12/08/2004 Oxycodone-Aspirin Nausea And Vomiting 12/08/2004 Medications Medication Sig Dispensed Refills Start Date End Date Status metFORMIN (GLUCOPHAGE) Take 1,000 mg by 0 10/18/2020 Active 1,000 mg tablet mouth at bedtime. furosemide (LASIX) 40 Take 40 mg by 0 12/12/2020 Active mg tablet mouth once daily. triamterene-hydrochlor Take 1 Capsule by 0 Active othiazide, 37.5-25 mg, mouth. (DYAZIDE) 37.5-25 mg capsule venlafaxine (EFFEXOR TAKE ONE CAPSULE 0 09/27/2020 Active XR) 150 mg BY MOUTH DAILY Extended-Release WITH 75MG capsule venlafaxine (EFFEXOR TAKE ONE CAPSULE 0 10/18/2020 Active XR) 75 mg cp24 BY MOUTH DAILY Extended-Release WITH 150MG capsule prochlorperazine Take 1 Tablet (5 15 Tablet 0 07/18/2021 Active (COMPAZINE) 5 mg mg) by mouth every tabletIndications: 6 hours if needed Nonintractable for headache, unspecified Nausea/Vomiting chronicity pattern, (headache). unspecified headache type diphenhydrAMINE Take 25 mg by 0 Active (BENADRYL) 25 mg mouth at bedtime capsule if needed. diphenhydrAMINE-acetam Take 1 Tablet by 0 Active inophen 25-500 mg mouth at bedtime (TYLENOL PM) 25-500 mg if needed. Max tablet acetaminophen dose: 4000mg in 24 hrs. acetaminophen (TYLENOL Take 1,000 mg by 0 Active EXTRA STRGTH) 500 mg mouth every 6 tablet hours if needed for Headache or Pain. Max acetaminophen dose: 4000mg in 24 hrs. atorvastatin (LIPITOR) Take 20 mg by 0 Active 20 mg tablet mouth at bedtime. predniSONE (DELTASONE) Take 2 Tablets (40 10 Tablet 0 11/21/19 22 20 mg mg) by mouth once 2 tabletIndications: daily with a meal Temporal arteritis for 5 days. (HC) Active Problems Problem Noted Date Other complicated headache syndrome 07/20/2021 PMR (polymyalgia rheumatica) 07/20/2021 HTN (hypertension) 07/20/2021 VINCE (generalized anxiety disorder) 07/20/2021 Essential tremor 07/20/2021 Temporal headache Encounters Date Type Specialty Care Team Description 11/20/2021 Emergency Gadiel Mendez Temp oral arteritis (HC) (Primary Dx) 11/20/2021 Travel from Last 3 Months Family History Medical History Relation Name Comments Coronary artery disease Father Transient ischemic attack Mother Relation Name Status Comments Father Mother Social History Tobacco Use Types Packs/Day Years Used Date Never Smoker Smokeless Tobacco: Never Used Sex Assigned at Date Recorded Not on file COVID-19 Exposure Response Date Recorded In the last 10 days, have you been in contact with No / Unsu re 11/20/2021 2:49 AM CDT someone who was confirmed or suspected to have Coronavirus/COVID-19? Obstetrics History Last Filed Vital Signs Vital Sign Reading Time Taken Comments Blood Pressure 148/69 11/20/2021 6:40 AM CDT Pulse 65 11/20/2021 6:40 AM CDT Temperature 36.7 ??C (98.1 ??F) 11/20/2021 2:58 AM CDT Respiratory Rate 18 11/20/2021 2:58 AM CDT Oxygen Saturation 98% 11/20/2021 6:40 AM CDT Inhaled Oxygen Concentration - - Weight 98.9 kg (218 lb) 11/20/2021 2:58 AM CDT Height 177.8 cm (5' 10) 11/20/2021 2:58 AM CDT Body Mass Index 31.28 11/20/2021 2:58 AM CDT Plan of Treatment Health Maintenance Due Date Last Done Comments Tdap 11/05/1967 Depression screening for age 12+ 1968 Hepatitis C screening for age 18-79 1974 Tetanus booster 1976 Pap test for age 21-65 1977 Colonoscopy through age 75 2001 Lipids for age 45-75 2001 Mammogram for age 45-75 2001 Zoster (shingles) series for age 50+ 2006 (1 of 2) DEXA/DXA scan for age 65+ 2021 Pneumococcal series for age 65+ (1 - 2021 PCV) COVID-19 vaccine series (4 - Booster 11/05/2021 07/06/2021, 08/28/2020, for Moderna series) 07/29/2020 Influenza for age 65+ 11/12/2021 BMI (ht and wt on same day) for age 1012/18/2021 12/18/2020 18+ Procedures Procedure Name Priority Date/Time Associated Diagnosis Comme nts C-REACTIVE PROTEIN STAT 11/20/2021 5:47 AM Res ults for this CDT procedure are i n the results section. SEDIMENTATION RATE STAT 11/20/2021 5:47 AM Res ults for this CDT procedure are i n the results section. from Last 3 Months Results SEDIMENTATION RATE (11/20/2021 5:47 AM CDT) Analysis Performed At Patho logist Time Signature SEDIMENTATION RATE 16 <30 mm/hr 11/20/2021 [facility] 5:51 AM CDT [facility] Specimen Anatomical Collection Method / Collection Time Recei bethany Time (Source) Location / Volume Laterality Blood BLOOD SPECIMEN / Venipuncture / 11/20/2021 5:47 2021 5:49 Unknown Unknown AM CDT AM CDT Gadiel Mendez MD HEMATOLOGY Performing Organization Address City/State/ZIP Code Phon e Number [address] [address] CENTER (ABNORMAL) C-REACTIVE PROTEIN (11/20/2021 5:47 AM CDT) P athologist Signature C-REACTIVE 0.50 (H) <0.50 11/20/2021 [facility] PROTEIN mg/dL 6:32 AM CDT [facility] Specimen Anatomical Collection Method / Collection Time Recei bethany Time (Source) Location / Volume Laterality Blood BLOOD SPECIMEN / Venipuncture / 11/20/2021 5:47 2021 5:49 Unknown Unknown AM CDT AM CDT Gadiel Mendez MD CHEMISTRY Performing Organization Address City/State/ZIP Code Phon e Number [facility] [address] [place] [address] CENTER from Last 3 Months Insurance Payer Benefit Plan / Subscriber ID Effective Dates Phone Addre ss Type Group [employer] [place] [employer] [id number] 2021-[employer] [address] [place]IC[place], [place] [id number] [employer] [place] [id number] 2018-Presen [address] [place] [address] [facility] [place] [id number] 2018-[employer] [address] [place] [address] Advance Directives Latest Code Status on File Code Status Date Activated Date Inactivated Comments Full Code 07/20/2021 2:56 AM 07/22/2021 2:38 PM Code Status Discussion: Reviewed Preferences Care Teams Quality Control Representative Relationship Specialty Start Date End Date Jose R Wells MD PCP - General Family Practice 06/26/[address] [place] [address]
--- OUTSIDE RECORDS SUMMARY | 2021-12-03 11:10 | XMS_ITS | Encounter Summary ---
:1955 Author Organization [facility] Address [address] [place] [address] Care Team Providers Name Role Phone Unavailable Primary Care Provider Unavailable Encounter Details Date Type Department Care Team Description 10/02/2012 Hospital Encounter HX [facility] [place] [place] [address] Social History Tobacco Use Types Packs/Day Years Used Date Smoking Tobacco: Never Assessed Sex Assigned at Date Recorded Not on file documented as of this encounter Miscellaneous Notes Miscellaneous - Alana Beckman M.D. - 10/02/2012 11:51 AM CDT Results Notification Document Contains Addenda Addendum by THIERRY ORTIZ RN on 09 October 2012 16:58:57 CDT Pt notfiied and is aware of all test results and would like to hold off on Dr. Salvador visit and the perioperative educator until Nov. Addendum by THIERRY ORTIZ RN on 09 October 2012 16:45:58 CDT LMTCB. Pt's cell is [phone] Addendum by THIERRY ORTIZ RN on 06 October 2012 10:33:54 CDT LMTCB From: ALANA BECKMAN MD To: THIERRY ORTIZ RN; Sent: 10/02/2012 11:51:55 CDT ! Show up: 10/02/2012 16:51:55 [facility] Subject: Results Notification Actions: Notify patient of results Reminder Comments: Normal Results: Date Result Name Value Ref Range 10/02/2012 09:08 TSH 2.2 mIU/L (0.3 - 5.0) Source: [facility] POWERCHART Document Id: [id number] Electronically signed by Conversion, [facility] Director Hris [id number] at 08/11/2016 9:38 AM CDT Miscellaneous - Alana Beckman M.D. - 10/02/2012 10:02 AM CDT Results Notification Document Contains Addenda Addendum by THIERRY ORTIZ RN on 06 October 2012 15:57:03 CDT Pt called back and left a voicemail stating that she knows about Dr. Beckman wanting her to see Dr. Salvador and the perioperative educator but she is going to hold off for now and will call back and schedule at her conveniance. Addendum by THIERRY ORTIZ RN on 06 October 2012 10:33:29 CDT LMTCB From: ALANA BECKMAN MD To: THIERRY ORTIZ RN; Sent: 10/02/2012 10:02:49 CDT ! Show up: 10/02/2012 15:02:49 [facility] Subject: Results Notification Actions: Notify patient of results Reminder Comments: refer to Dr Salvador for management of hypercholesterolemia, dietary consult for pre-diabetes, orders entered Results: Date Result Name Ind Value Ref Range 10/02/2012 09:08 Glucose Fasting (H) 118 mg/dL (70 - 99) 10/02/2012 09:08 Cholesterol (H) 247 mg/dL (120 - 200) 10/02/2012 09:08 Trig 151 mg/dL (35 - 185) 10/02/2012 09:08 HDL 76 mg/dL (>=40 - ) 10/02/2012 09:08 LDL Calculated (H) 140 mg/dL (60 - 130) 10/02/2012 09:08 Chol/HDL Ratio 3.2 (0.0 - 4.5) 10/02/2012 09:08 LDL/HDL 2 Source: [facility] POWERCHART Document Id: [id number] Electronically signed by Conversion, [facility] Director Hris [id number] at 08/11/2016 9:38 AM CDT documented in this encounter Plan of Treatment Not on filedocumented as of this encounter Procedures Procedure Name Priority Date/Time Associated Diagnosis Comme nts LIPID PANEL, S Routine 10/02/2012 9:08 AM Results for this CDT procedure are i n the results section. THYROID-STIMULATING Routine 10/02/2012 9:08 AM Re sults for this HORMONE-SENSITIVE CDT procedure are in (S-TSH) the results section. GLUCOSE, FASTING, Routine 10/02/2012 9:08 AM Resu lts for this S/P CDT procedure are i n the results section. documented in this encounter Results (ABNORMAL) Glucose, Fasting (10/02/2012 9:08 AM CDT) P athologist Signature Glucose, 118 (H) 70 - 99 POWERCHART Fasting, S MGDL Specimen (Source) Anatomical Collection Method Collection Time Re ceived Time Location / / Volume Laterality Blood 10/02/2012 9:08 AM CDT Alana Beckman M.D. LAB BLOOD NON ADD-ON Performing Organization Address City/[facility]/ZIP Code Phon e Number POWERCHART Thyroid-Stimulating Hormone-Sensitive (s-TSH) (10/02/2012 9:08 AM CDT) athologist Signature TSH 2.2 0.3 - 5.0 POWERCHART (Thyrotropin) MIUL Comment: Reference values have not been established for patients that are less than 12 months of age. Specimen (Source) Anatomical Collection Method Collection Time Re ceived Time Location / / Volume Laterality Blood 10/02/2012 9:08 AM CDT Alana Beckman M.D. LAB BLOOD ADD-ON Performing Organization Address City/State/ZIP Code Phon e Number POWERCHART (ABNORMAL) Lipid Panel (10/02/2012 9:08 AM CDT) Patholo gist Method Time Signature Cholesterol, Total 247 (H) 120 - 200 POWERCHART MGDL HX HDL 76 >=40 MGDL POWERCHART Triglycerides 151 35 - 185 POWERCHART MGDL Calculated LDL 140 (H) 60 - 130 POWERCHART MGDL Total 3.2 0.0 - 4.5 POWERCHART Cholesterol/HDL Ratio HXLDL/HDL 2 POWERCHART Specimen (Source) Anatomical Collection Method Collection Time Re ceived Time Location / / Volume Laterality Blood 10/02/2012 9:08 AM CDT Alana Beckman M.D. LAB BLOOD ADD-ON Performing Organization Address City/State/ZIP Code Phon e Number POWERCHART documented in this encounter Visit Diagnoses Not on filedocumented in this encounter
--- OUTSIDE RECORDS SUMMARY | 2021-12-03 11:10 | XMS_ITS | Encounter Summary ---
:1955 Author Organization [facility] Address [address] [place] [address]. [place] [address] Care Team Providers Name Role Phone No Ref-Primary, Physician Primary Care Provider [phone] Reason for Visit Reason Onset Date Comments Appointment 11/18/2021 Encounter Details Date Type Department Care Team Description 11/18/2021 Telephone [facility] Deisy Saeed, Appointment Clinic [place] [phone] Social History Tobacco Use Types Packs/Day Years [...] have Coronavirus/COVID-19? documented as of this encounter Miscellaneous Notes Telephone Encounter - Deisy Saeed PA-C - 11/19/2021 9:19 AM CDT Called and spoke to patient. She reports that she could make the 3PM urodynamics appointment today, but she feels this is not the test she needs at this time. She wants to know why she has numbness, not why she has urinary leakage. States that she emailed Dr. Gastelum just a few minutes ago and prefers to hold off on scheduling until she receives a response. She was appreciative of the phone call. Deisy Saeed PA-C Department of Urology Telephone Encounter - Deisy Saeed PA-C - 11/18/2021 3:55 PM CDT Called to offer patient urodynamics appointment tomorrow, 11/19/21 at 3:00 PM. Appointment time currently on hold for her and will remain on hold until tomorrow morning. If patient calls back and this appointment date and time works for her, please assist to schedule over the hold. Deisy Saeed PA-C Department of Urology documented in this encounter Plan of Treatment Not on filedocumented as of this encounter Visit Diagnoses Not on filedocumented in this encounter Care Teams Knockout Man Relationship Specialty Start Date End Date No Ref-Primary, Physician PCP - General 04/29/17 documented as of this encounter
--- OUTSIDE RECORDS SUMMARY | 2021-12-03 11:10 | XMS_ITS | Encounter Summary ---
:1955 Author Organization [facility] Address [address] [place] [address] Care Team Providers Name Role Phone Unavailable Primary Care Provider Unavailable Encounter Details Date Type Department Care Team Description 08/28/2010 Hospital Encounter HX NO MAPPING Social History Tobacco Use Types Packs/Day Years Used Date Smoking Tobacco: Never Assessed Sex Assigned at Date Recorded Not on file documented as of this encounter Plan of Treatment Not on filedocumented as of this encounter Visit Diagnoses Not on filedocumented in this encounter
--- OUTSIDE RECORDS SUMMARY | 2021-12-03 11:10 | XMS_ITS | Encounter Summary ---
:1955 Author Organization [facility] Address [address] [place] [address] Care Team Providers Name Role Phone Unavailable Primary Care Provider Unavailable Encounter Details Date Type Department Care Team Description 09/25/2012 Hospital Encounter HX [facility]PSONO [place] [address] Social History Tobacco Use Types Packs/Day Years Used Date Smoking Tobacco: Never Assessed Sex Assigned at Date Recorded Not on file documented as of this encounter Miscellaneous Notes Miscellaneous - Alana Beckman M.D. - 09/26/2012 3:34 PM CDT Results Notification From: ALANA BECKMAN MD To: THIERRY ORTIZ RN; Sent: 09/26/2012 15:34:46 CDT ! Show up: 09/26/2012 20:34:46 [facility] Subject: Results Notification Actions: Notify patient of results Reminder Comments: Negative, repeat in 1 year Results: Date Result Type Result Name 09/26/2012 12:47 Radiology [place] Mammo Screening w/ CADD Source: [facility] POWERCHART Document Id: [id number] Electronically signed by Ryan, [facility] Director [place] [id number] at 08/11/2016 12:45 AM CDT documented in this encounter Plan of Treatment Not on filedocumented as of this encounter Procedures Procedure Name Priority Date/Time Associated Diagnosis Comme nts BI BREAST SCREENING Routine 09/25/2012 2:30 PM Re sults for this BILATERAL CDT procedure are i n the results section. documented in this encounter Results BI Breast Screening Bilateral (09/25/2012 2:30 PM CDT) Anatomical Region Laterality Modality Breast Bilateral Mammography Specimen (Source) Anatomical Collection Method Collection Time Re ceived Time Location / / Volume Laterality 09/25/2012 2:30 PM CDT Addenda Addendum by Provider, Magali Navarrete 09/25/2012 2:30 PM CDT RAD^^^MA MA Mammo Screening w/ CADD 09/25/2012 14:30:00 Impressions 09/26/2012 12:43 PM CDT No suspicious interval change, no evidence of malignancy. BI-RADS code: 1, negative mammogram. Narrative 09/26/2012 12:43 PM CDT EXAM: MA Mammo Screening w/ CADD INDICATION: PREV MAMMO AT [facility] [place] COMPARISON: 07/30/2011, 04/27/2010, and 07/12/2008. FINDINGS: Breasts are of decreased fatty density with some overall decrease in residual glandular tissue in the upper outer quadrants. No suspicious dominant mass or clustered microcalcifications suspicious for malignancy identified. Th ere is no suspicious interval change compared with 07/30/2011. CAD was utilized in the interpretation o f this exam. Procedure Note Cory Aguilar Jr., M.D. / Landon Bocanegra M.D. - 07/30/2016 EXAM: MA Mammo Screening w/ CADD INDICATION: PREV MAMMO AT [facility] [place] COMPARISON: 07/30/2011, 04/27/2010, and 07/12/2008. FINDINGS: Breasts are of decreased fatty density with some overall decrease in residual glandular tissue in the upper outer quadrants. No suspicious dominant mass or clustered microcalcifications suspicious for malignancy identified. Th ere is no suspicious interval change compared with 07/30/2011. CAD was utilized in the interpretation o f this exam. IMPRESSION: No suspicious interval dobbs e, no evidence of malignancy. BI-RADS code: 1, negative mammogram. Josephine AntonioTAaron(R)(CT), RAaronTAaron(R)(M) IMG BI PROCEDURES documented in this encounter Visit Diagnoses Not on filedocumented in this encounter
--- OUTSIDE RECORDS SUMMARY | 2021-12-03 11:10 | XMS_ITS | Encounter Summary ---
:1955 Author Organization [facility] Address [address] [place] [address] Care Team Providers Name Role Phone Unavailable Primary Care Provider Unavailable Encounter Details Date Type Department Care Team Description 09/25/2012 Hospital Encounter HX [facility] [place] [address] Social History Tobacco Use Types Packs/Day Years Used Date Smoking Tobacco: Never Assessed Sex Assigned at Date Recorded Not on file documented as of this encounter Last Filed Vital Signs Vital Sign Reading Time Taken Comments Blood Pressure 140/84 09/25/2012 3:07 PM CDT Pulse 70 09/25/2012 3:07 PM CDT Temperature - - Respiratory Rate - - Oxygen Saturation - - Inhaled Oxygen Concentration - - Weight 102 kg (224 lb 10.4 oz) 09/25/2012 3:07 PM CDT Height 177 cm (5' 9.69) 09/25/2012 3:07 PM CDT Body Mass Index 32.53 09/25/2012 3:07 PM CDT documented in this encounter H&P Notes Alana Beckman M.D. - 09/25/2012 2:59 PM CDT [id number] HISTORY OF PRESENT ILLNESS The patient is a 56-year-old, G3, P3-0-0-3, who is here for an annual physical exam. She does not have any symptoms at present. PAST MEDICAL/SURGICAL HISTORY GYNECOLOGIC HISTORY: Menarche at age 16. Last menstrual period 2008. Patient gives history of fibroids with heavy menstrual cycles while she was having her periods; however, her previous department manager did not recommend any treatment as she was near menopause. She also had severe hot flashes when she transitioned into menopause and is on Prempro tablets for the past 4 years. Last Pap smear in July2011 normal. No history of abnormal Pap smears. No history of STDs. OBSTETRIC HISTORY: 3 normal spontaneous vaginal deliveries. MEDICAL HISTORY: Borderline diabetes. SURGICAL HISTORY: Left meniscus repair 6 years ago. SOCIAL HISTORY Patient is . 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 She consumes 1 glass of wine per day. No history of smoking. FAMILY HISTORY Mother age 87 with rheumatoid arthritis. Father age 67 of heart attack and bladdercancer. History of borderline diabetes in father. Patient had her mammogram today and 1 year ago, which was normal. SYSTEMS REVIEW Joint pains. Wants to be tested for rheumatoid arthritis. PHYSICAL EXAMINATION GENERAL: On examination, patient is conscious, comfortable in the supine and sitting positions. VITAL SIGNS: Heart rate 70per minute, blood pressure 140/84 mmHg, height 177 cm, weight 101.9 kg. BMI 32.53. HEENT: No thyromegaly. No carotid bruits. LUNGS: Clear to auscultation bilaterally. CARDIOVASCULAR: Regular rate and rhythm. No murmurs, rubs or gallops. ABDOMEN: Soft, nontender, nondistended. No evidence of organomegaly. SPECULUM EXAM: Reveals normal cervix and normal vagina. No evidence of atrophy. Bimanual uterine exam reveals a normal sized, anteverted uterus. No adnexal mass or tenderness. IMPRESSION/REPORT/PLAN A 56-year-old G3, P3-0-0-3, here for an annual well adult exam. 1. Screening test. The patient had her last Pap smear in July 2011, which was normal. She never had abnormal Pap smears. Therefore, as per revised ASCCP guidelines, she would need a Pap smear once every3 years until age 66. Her next Pap smear would be due in July 2014. 2. She would need the following blood tests: fasting lipid profile, fasting blood sugar, TSH. 3. Blood pressure was noted to be high at this visit: 140/84. Patient was asked to continue monitoring her blood pressures at home and if they consistently stay in the 140 by 80s or 90s, she should consult Dr. Salvador for treatment of hypertension. 4. Joint pains. Patient suspects that she is developing rheumatoid arthritis; therefore, I asked herto consult with Dr. Salvador regarding further testing for rheumatoid arthritis. Patient had her screening mammogram done today, the result of which is awaited. 5. Patient's BMI was noted to be 32.53, which is in the grade 1 obesity. I recommended patient to dotherapeutic lifestyle changes: eat healthier, more fruits and vegetables, more lean meat, and low-fat or skin dairy products, eliminate red meat and food products high in cholesterol from her diet. I re commended her to decrease portion sizes and decrease her caloric intake to achieve weight loss and do moderate intensity exercise for 30 to 60 minutes daily. Alana Beckman M.D./benjamín Electronically Signed By: ALANA BECKMAN MD On: 09/26/2012 10:30 AM Source: [facility] [id number] Document Id: [id number] documented in this encounter Miscellaneous Notes Miscellaneous - Josie Schuler RTrino - 02/01/2013 10:45 AM CST Naproxen med refill Document Contains Addenda Addendum by ALANA BECKMAN MD on 01 February 2013 16:52:44 PICTURE ENLARGER Approved Order:naproxen (naproxen 500 mg oral tablet) 1 tab(s) PO 2xDay meal Qty: 180 tab(s) Refills: 2 Substitutions Allowed Route To [place] [facility] [id number] Signed by ALANA BECKMAN MD 02/01/2013 16:52:39 From: JOSIE SCHULER RN To: ALANA BECKMAN MD; Sent: 02/01/2013 10:45:46 PICTURE ENLARGER Subject: Naproxen med refill On hold pending signature Order:naproxen (naproxen 500 mg oral tablet) 1 tab(s) PO 2xDay meal Qty: 180 tab(s) Refills: 2 Substitutions Allowed Route To [facility] [id number] Caller is: ( ) Patient ( ) Mother ( ) Father ( ) Spouse ( ) Daughter ( ) Son ( x ) Pharmacy ( ) Other: Provider: Rk [facility]: [facility] Name of Medications Needing Refill: Naproxen 500 mg Last Refill Date: 03/19/12 Additional Information: Last / Future Appointment: last visit was for annual exam however it is mentioned that she has jointpains but not on her medication list. Unable to fill per protocol. Disposition: ( X ) Send to Pharmacy ( ) Call to Pharmacy ( ) Patient will package pick up Script ( ) Mail Rxto Patient Source: [facility] POWERCHART Document Id: [id number] Electronically signed by Conversion, [facility] Dietitian Consultant [id number] at 08/11/2016 12:45 AM CDT Miscellaneous - Josie Schuler R.N. - 12/19/2012 3:02 PM CDT begging for Prempro Rx Document Contains Addenda Addendum by ALANA BECKMAN MD on 19 December 2012 15:18:37 CDT From: ALANA BECKMAN MD To: JOSIE SCHULER RN; Sent: 12/19/2012 15:18:37 CDT Subject: RE: begging for Prempro Rx I called Gloria and discussed her symptoms with her. She has severe hot flushes about 8-10/day and mood swings which seem to interfere with her daily life. I discussed benefits and risks of combination HRT including aggravation of heart disease, hypertension, stroke, DVT and increased risk of breast cancer. After discussing the risk-benefit ratio with her, we decided to go ahead with 6 months of combination HRT along with dietary modifications like reduction in red wine intake, increasing soy-food [place] in the form of soy milk or tofu and addition of Flax-seed oil to her diet. We will revisit her symptoms at the end of 6 months and decide whether we want to continue HRT further. MJP From: JOSIE SCHULER RN To: ALANA BECKMAN MD; Sent: 12/19/2012 15:02:33 CDT Subject: begging for Prempro Rx Pt was here for a physical in September. She was told she must go off Prempro by Dr. eBckman. Pt is now begging to have it back. Pt states she is having hot flashes where she feels like this electricity flash goes off and she knows it is coming and she needs something for her moods. Pt states there is no history of cancer. Pt told she should come in to discuss however pt states I would rather not and if she won't give it to me I will have to ask another for it. Can you please advise pt and call her [phone]. Source: [facility] [employer] Document Id: [id number] Electronically signed by [facility] [id number] at 08/11/2016 12:45 AM CDT Miscellaneous - Josie Schuler RAaronN. - 10/24/2012 9:02 AM CDT Triamterene 37.5 mg/HCTZ 25 mg med refill Document Contains Addenda Addendum by ALANA BECKMAN MD on 24 October 2012 12:01:15 CDT From: ALANA BECKMAN MD To: JOSIE SCHULER RN; Sent: 10/24/2012 12:01:15 CDT Subject: RE: Triamterene 37.5 mg/HCTZ 25 mg med refill Yes-MJP Addendum by JOSIE SCHULER RN on 24 October 2012 11:05:04 CDT From: JOSIE SCHULER RN To: ALANA BECKMAN MD; Sent: 10/24/2012 11:05:04 CDT Subject: FW: Triamterene 37.5 mg/HCTZ 25 mg med refill So you are ok with filling it for a year~this year only correct? Addendum by ALANA BECKMAN MD on 24 October 2012 10:03:19 CDT From: ALANA BECKMAN MD To: JOSIE SCHULER RN; Sent: 10/24/2012 10:03:19 CDT Subject: RE:Triamterene 37.5 mg/HCTZ 25 mg med refill Approved Order:triamterene-hydrochlorothiazide (triamterene-hydrochlorothiazide 37.5 mg- 25 mg oral tablet) 1 tab(s) PO Daily Qty: 90 tab(s) Refills: 2 Substitutions Allowed Route To Pharmacy - [facility] [id number] Signed by ALANA BECKMAN MD 10/24/2012 10:03:12 Addendum by ALANA BECKMAN MD on 24 October 2012 10:02:32 CDT From: ALANA BECKMAN MD To: JOSIE SCHULER RN; Sent: 10/24/2012 10:02:32 CDT Subject: RE: Triamterene 37.5 mg/HCTZ 25 mg med refill I do not feel comfortable refilling antihypertensive medications or diuretics as they do not fall within my subspeciality. Pt will have to see a PCP for them to be refilled. She can have her physical exam in the future from a PCP who can also refill these meds and see me for a pelvic only exam, many of my pts with medical issues do that. I can give her a referral to one of the PCPs for treatment of ankle swelling if insurance has issues with her seeing a PCP for refilling these meds. From: JOSIE SCHULER RN To: ALANA BECKMAN MD; Sent: 10/24/2012 09:02:49 CDT Subject: Triamterene 37.5 mg/HCTZ 25 mg med refill On hold pending signature Order:triamterene-hydrochlorothiazide (triamterene-hydrochlorothiazide 37.5 mg- 25 mg oral tablet) 1 tab(s) PO Daily Qty: 90 tab(s) Refills: 2 Substitutions Allowed Route To Pharmacy - [facility] [id number] Caller is: ( X ) Patient ( ) Mother ( ) Father ( ) Spouse ( ) Daughter ( ) Son ( ) Pharmacy ( ) Other: Provider: Rk [facility]: [facility] Name of Medications Needing Refill: Triamterene 37.5 mg/HCTZ 25 mg tabs i po daily as needed Last Refill Date: Additional Information: Pt would like a 1 year refill since she just saw you for annual exam and since she did see you she doesn't want go to another doctor due to insurance coverage to have this filled by someone in addition to you. Pt wants you to know she takes it for swelling in her ankles for herjob not for blood pressure Last / Future Appointment: lat visit for annual exam on 09/25/12 Disposition: ( X ) Send to Pharmacy ( ) Call to Pharmacy ( ) Patient will package pick up Script ( ) Mail Rxto Patient Source: [facility] POWERCHART Document Id: [id number] Miscellaneous - Josie Schuler RAaronN. - 10/23/2012 9:54 AM CDT Triamterene 37.5 mg/HCTZ 25 mg From: JOSIE SCHULER RN Sent: 10/23/2012 09:54:05 CDT Subject: Triamterene 37.5 mg/HCTZ 25 mg Submitted: Order:triamterene-hydrochlorothiazide (triamterene-hydrochlorothiazide 37.5 mg- 25 mg oral tablet) 1 tab(s) PO Daily Pt should find a family physician or Boiler Maker to manage blood pressure medication Qty: 90 tab(s) Refills: 0 Substitutions Allowed Route To Pharmacy - [facility] [id number] Signed by JOSIE SCHULER RN Documented Discontinue:triamterene-hydrochlorothiazide (triamterene-hydrochlorothiazide 37.5 mg-25 mg oral tablet) Signed by JOSIE SCHULER RN 10/23/2012 09:48:30 Caller is: ( ) Patient ( ) Mother ( ) Father ( ) Spouse ( ) Daughter ( ) Son ( X ) Pharmacy ( ) Other: Provider: Rk Pharmacy: [facility] Name of Medications Needing Refill: Trimterene 37.5 mg/HCTZ 25 mg i po tablet every day Last Refill Date: 06/12/2012 Additional Information: Last / Future Appointment: last office visit for annual exam 09/25/12 Disposition: ( X ) Send to Pharmacy ( ) Call to Pharmacy ( ) Patient will package pick up Script ( ) Mail Rxto Patient Source: [facility] POWERCHART Document Id: [id number] Mallika - Josie Schuler R.N. - 09/25/2012 3:17 PM CDT Health Assessment Health Assessment Entered On: 09/25/2012 15:18 CDT Performed On: 09/25/2012 15:17 CDT by JOSIE SCHULER RN Health Assessment Complete Health Assessment Complete or Modified : Annual Health Assessment Annual Health Assessment Completed : Yes JOSIE SCHULER RN - 09/25/2012 15:17 CDT Nutrition Nutrition Risk Factors by History Adult : None JOSIE SCHULER RN - 09/25/2012 15:17 CDT Functional Current Daily Living Assistance : None JOSIE SCHULER RN - 09/25/2012 15:17 CDT Dependent Habits Tobacco Use/Currently Using : No Smoking Status : Never smoker JOSIE SCHULER RN - 09/25/2012 15:17 CDT Psychosocial Domestic Abuse Concerns : None JOSIE SCHULER RN - 09/25/2012 15:17 CDT Advance Directive Advanced Directives : No JOSIE SCHULER RN - 09/25/2012 15:17 CDT Educ Needs Learning Style Preference Adult Grid Patient : None Family : None JOSIE SCHULER RN - 09/25/2012 15:17 CDT Source: [facility] POWERCHART Document Id: [id number] CDT!19 Mallika - Josie Schuler R.N. - 09/25/2012 3:07 PM CDT Adult Head Of Sales Intake/History Adult Head Of Sales Intake/History Entered On: 09/25/2012 15:12 CDT Performed On: 09/25/2012 15:07 CDT by JOSIE SCHULER rotary furnace operator Chief Complaint : Pt is here today for annual exam. Pt has had problems with fibroids and would liketo discuss menopause and hormones. Pt has h/o hemorrhoids. LMP Date : 2008 Ambulatory Intake Additional Information : 07/2011 last pap = negative h/o normal paps Peripheral Pulse Rate : 70 /min Systolic Blood Pressure : 140 mmHg Diastolic Blood Pressure : 84 mmHg NIBP Mean : 103 mmHg BP Location : Left upper extremity Blood Pressure Cuff Size : Regular Height : 177 cm(Converted to: 5 ft 10 inch(es), 69.69 inch(es)) Actual Weight : 101.9 kg(Converted to: 224 lb 10 oz) Dosing Weight Clinic : 101.9 kg Clinic BSA : 2.24 Body Mass Index : 32.53 kg/m2 JOSIE SCHULER RN - 09/25/2012 15:07 CDT General Info Information Given By : Patient Languages : Faroese JOSIE SCHULER RN - 09/25/2012 15:07 CDT Subjective Pain Symptoms : No JOSIE SCHULER RN - 09/25/2012 15:07 CDT Dependent Habits Tobacco Use/Currently Using : No Smoking Status : Never smoker JOSIE SCHULER RN - 09/25/2012 15:07 CDT Source: [facility] POWERCHART Document Id: [id number] CDT!24 documented in this encounter Plan of Treatment Not on filedocumented as of this encounter Visit Diagnoses Not on filedocumented in this encounter
--- OUTSIDE RECORDS SUMMARY | 2021-12-03 11:10 | XMS_ITS | Clinical Summary ---
:1955 Author Organization [facility] Address [address] [place] [address] Care Team Providers Name Role Phone No Ref-Primary, Physician Primary Care Provider [phone] Allergies Active Allergy Reactions Severity Noted Date Comments Demerol Nausea and Vomiting 12/08/2004 Oxycodone-Aspirin Nausea and Vomiting 12/08/2004 Medications Medication Sig Dispensed Refills Start Date End Date Status triamterene-hydrochlor Take 1 tablet by 90 tablet 3 07/30/2011 Active othiazide (MAXZIDE-25) mouth daily as 37.5-25 MG per needed. tabletIndications: Edema venlafaxine Take 1 capsule by 90 capsule 1 03/21/2012 Active (EFFEXOR-XR) 75 MG 24 mouth daily. hr capsuleIndications: Flushing Additional Information Patient taking differently: 75 mg Oral DAILY, With a 150 mg dose to total 225mg., Reported on 07/25/2017 PRIMIDONE Take 50 mg by mouth 0 Active POIndications: every morning Essential Tremor venlafaxine Take 150 mg by 0 Act kim (EFFEXOR-ER) 150 MG mouth daily (with TB24 24 hr tablet breakfast) With 75 mg to total 225 mg. VITAMIN D, Take 2,000 Units by 0 Active CHOLECALCIFEROL, PO mouth daily DiphenhydrAMINE HCl Take 50 mg by mouth 0 Active (BENADRYL PO) nightly as needed B Complex-C (SUPER B Take 1 tablet by 0 Active COMPLEX PO) mouth daily MULTIPLE VITAMINS/IRON Take 1 tablet by 0 Active PO mouth daily Calcium Carbonate Take 1 tablet by 0 Active (CALCIUM 600 PO) mouth daily propranolol (INDERAL Take 120 mg by 0 Active LA) 120 MG 24 hr mouth daily capsule hydrOXYzine (ATARAX) Take 1-2 tablets 60 tablet 0 Active 25 MG (25-50 mg) by mouth tabletIndications: every 6 hours as Status post total left needed for other knee replacement (adjuvant pain) mupirocin (BACTROBAN) Apply into each 0 Discontinued 2 % nasal ointment nare 2 times daily (Therapy Apply small amount c ompleted) in each nare 2 times a day for 7 days prior to surgery acetaminophen Take 3 tablets (975 200 tablet 0 08/18/2 11/11 Discontinued (TYLENOL) 325 MG mg) by mouth every 2021 (Therapy tabletIndications: 8 hours c ompleted) Status post total left knee replacement oxyCODONE IR 1 tab po q 4 hrs prn pain scale 3-6, 60 tablet 0 2 Discontinued (ROXICODONE) 5 MG 2 tabs po q 4hrs prn pain scale 7-10 2021 (Therapy tabletIndications: c ompleted) Status post total left knee replacement senna-docusate Take 1-2 tablets by 60 tablet 0 08/17/2 11/11 Discontinued (SENOKOT-S;PERICOLACE) mouth 2 times daily 2021 (Therapy 8.6-50 MG per as needed for co mpleted) tabletIndications: constipation Status post total left knee replacement naproxen (NAPROSYN) Take 1 tablet (500 60 tablet 0 2 0 Discontinued 500 MG mg) by mouth 2 2021 (Ther apy tabletIndications: times daily (with completed) Status post total left meals) Aspirin is knee replacement to be taken a minimum of 2 hours prior to taking Naproxen. 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 Provider to review Resolved Problems Problem Noted Date Resolved Date Neck pain 12/26/2009 04/11/2010 IAMTEAR LAT MENISC KNEE-CURRENT 05/24/2005 06/29/19 06 IAMPOSTSURGICAL STATES NEC 05/24/2005 06/28/2005 Encounters Date Type Specialty Care Team Description 11/20/2021 Travel 11/18/2021 Telephone Urology Deisy Saeed Appointment [facility] [place] 11/11/2021 Office Visit Urology Jennifer Gastelum See Urinary inc ontinence, unspecified type (Primary Dx); MD Julius Decreased sensa tion 11/11/2021 Travel 09/25/2021 Telephone Urology Fredrick Velarde Appointment (Marjorie Roman MD appt) 09/25/2021 Travel 09/07/2021 Medical Correspondence Scan, Non-Provider ORDER UROLOGY [facility] ORTHOPED ICS from Last 3 Months Immunizations Name Administration Dates Next Due Influenza (IIV3) PF 12/26/2010 TDAP Vaccine (Adacel) 08/22/2009 Family History Medical History Relation Comments C.A.D. Brother 1 Born [birth year], [place] at age 69, also lumbar fusion Family History Negative Brother 2 Born 1941 C.A.D. Father age 67, first M I in his 20's or 30's (?); had a history of scarlet fever Arthritis Mother age 87, had sev ere RA Cerebrovascular Disease Mother TIA Family History Negative Sister 1 One at age 2 yo. Thyroid Disease Sister 2 Born 1953, lumbar fu dulce maria Thyroid Disease Sister 3 Born [birth year], lumbar fu dulce maria Hypertension Son 4 2 SONS WITH ENLARGE D VENTRICLE - TREATED BY CARDS AT [facility] Relation Status Comments Brother 1 Brother 2 Father (Age 67) Mother Alive Sister 1 Sister 2 Sister 3 Son 1 Alive age 19 - has an enl arged ventrile and HTN - is on BP medication - followe d by cards at [facility] Son 2 Alive age 15 - Has an enla rged ventricle and HTN - is on BP medication - followe d by cards at [facility] Son 3 Alive age 22 - healthy Son 4 Social History Tobacco Use Types Packs/Day Years [...] contact with No / Unsu re 11/20/2021 2:06 AM CDT someone who was confirmed or suspected to have Coronavirus/COVID-19? Last Filed Vital Signs Vital Sign Reading Time Taken Comments Blood Pressure 124/70 11/11/2021 3:01 PM CDT Pulse 69 11/11/2021 3:01 PM CDT Temperature 36 ??C (96.8 ??F) 08/18/2017 7:54 AM CDT Respiratory Rate 16 08/18/2017 8:46 AM CDT Oxygen Saturation 96% 11/11/2021 3:01 PM CDT Inhaled Oxygen Concentration - - Weight 98.9 kg (218 lb) 11/11/2021 3:01 PM CDT Height 177.8 cm (5' 10) 11/11/2021 3:01 PM CDT Body Mass Index 31.28 11/11/2021 3:01 PM CDT Plan of Treatment Health Maintenance Due Date Last Done Comments ADVANCE CARE PLANNING 1955 ANNUAL REVIEW OF HM ORDERS 1955 CT COLONOGRAPHY 1955 FIT-DNA (Cologuard) 1955 FIT 1955 FLEX SIG 1955 HIV SCREENING 11/05/1971 HEPATITIS C SCREENING 1974 COLONOSCOPY 03/21/2013 03/21/2003 COLORECTAL CANCER SCREENING 03/21/2013 MAMMO SCREENING 08/12/2013 08/13/2011, 07/30/2011, 04/27/2010, Additional history exists LIPID 07/29/2016 07/30/2011, 08/22/2009, 07/12/2008, Additional history exists FALL RISK ASSESSMENT 2021 MEDICARE ANNUAL WELLNESS 2021 07/30/2011, 08/22/2009, VISIT 07/12/2008, Additional history exists Pneumococcal Vaccine: 65+ 2021 11/05/2013 Years (1 - PCV) COVID-19 Vaccine (4 - 11/05/2021 07/06/2021, 08/28/2020, Booster for Moderna series) 07/29/2020 INFLUENZA VACCINE (#1) 2021 01/23/2021, 01/25/2020, 04/08/2019, Additional history exists DEXA 07/16/2022 07/17/2007, 02/28/2006 DTAP/TDAP/TD IMMUNIZATION 10/03/2023 10/02/2013, 09/24/2013 , (4 - Td or Tdap) 08/22/2009 ZOSTER IMMUNIZATION Completed 01/16/2018, 10/03/2017 PHQ-2 (once per calendar Completed 11/11/2021 year) HEPATITIS B IMMUNIZATION Aged Out No long er eligible based on patient 's age to complete this topic IPV IMMUNIZATION Aged Out No longer eligi ble based on patient 's age to complete this topic MENINGITIS IMMUNIZATION Aged Out No longe r eligible based on patient 's age to complete this topic Medical Devices Implanted Type Area Natural History Collections Curator Device Shelf Model / Identifier Expiration Serial / Date Lot Bone Cement Simplex Full Dose 6191-1-001 Cement, Bone Left: STRYKE R 11/12/2019 [id number] / Implanted: Qty: 1 on 08/15/2017 by Russell Maria MD at [facility] Knee ORTHOPEDICS / [id number] Imp Plate Tibial Zim Nexgen Size 5 Metallic Left: [employer] 05/12/2027 [id number] / Implanted: Qty: 1 on 08/15/2017 by Russell Maria MD at [facility] Hardware/Anc Knee / hor [id number] Imp Comp Patella Zim Nexgen 9.0x35mm Total Joint Left: [employer] 05/11/2025 [id number] / Implanted: Qty: 1 on 08/15/2017 by Russell Maria MD at [facility] Component/In Knee / sert [id number] Procedures Procedure Name Priority Date/Time Associated Diagnosis Comme nts NE MEASURE POST-VOID Routine 11/11/2021 3:27 PM CDT Urinary in continence, RESIDUAL URINE/BLADDER unspecified type CAPACITY, US NON-IMAGING from Last 3 Months Insurance Payer Benefit Plan / Subscriber ID Effective Dates Phone Addre ss Type Group BCBS BCBS MEDICARE [id number] 2021-Twin [phone] [address] [address] Medicare ADVANTAGE t 0 [place] MARTINE[place] [id number] Guarantor Name Account Type Relation to Date of Phone Billing Address Patient Chad,Gloria Diggs Personal/Famil Self 1955 [id number] [facility] y (Home) [facility] ROBETRO ESTEVEZ [phone] (Work) Gloria Bonilla Personal/Famil Self 1955 [address] [place] [address] (Home) [facility] [phone] ROBERTO LEON (Work) [id number] Advance Directives For more information, please contact: [phone] Latest Code Status on File Code Status Date Activated Date Inactivated Comments Full Code 08/15/2017 2:37 PM 08/18/2017 2:24 PM Care Teams Refractory Technician Relationship Specialty Start Date End Date No Ref-Primary, Physician PCP - General 04/29/17
--- OUTSIDE RECORDS SUMMARY | 2021-12-03 11:10 | XMS_ITS | Encounter Summary ---
:1955 Author Organization [place] Address [facility] [place] [address] Care Team Providers Name Role Phone No Ref-Primary, Physician Primary Care Provider [phone] Reason for Visit Reason Onset Date Comments Appointment 09/25/2021 [facility] appt Encounter Details Date Type Department Care Team Description 09/25/2021 Telephone [facility] Fredrick Velardeoin tment ([facility] MD Abel appt) [address] [place], [place] [address] [place] [address] (Wo rk) [address] [phone] Social History Tobacco Use Types Packs/Day Years [...] 10 days, have you been in contact Unable to asse ss 09/25/2021 10:23 AM CDT with someone who was confirmed or suspected to have Coronavirus/COVID-19? documented as of this encounter Miscellaneous Notes Telephone Encounter - Lin Franklin CNA - 09/25/2021 10:24 AM CDT [facility] Call Center Phone Message May a detailed message be left on voicemail: yes Reason for Call: Other: Pt was referred by her orthopedic surgeon Dr Nikko Khan. She states since she has had surgery she has not been able to feel her bottom, and she is unable to feel when shehas to urinate. She is hoping to see Dr Velarde sooner than her scheduled appt 01/25/22. Please reach out to pt to discuss possible scheduling options. Thanks Action Taken: Other: uro Travel Screening: Not Applicable documented in this encounter Plan of Treatment Not on filedocumented as of this encounter Visit Diagnoses Not on filedocumented in this encounter Care Teams Final Application Reviewer Relationship Specialty Start Date End Date No Ref-Primary, Physician PCP - General 04/29/17 documented as of this encounter
--- OUTSIDE RECORDS SUMMARY | 2021-12-03 11:10 | XMS_ITS | Encounter Summary ---
:1955 Author Organization [facility] Address [address] [place] [address] Care Team Providers Name Role Phone Unavailable Primary Care Provider Unavailable Encounter Details Date Type Department Care Team Description 10/15/2013 Hospital Encounter [facility] Jm Peng M. D. Social History Tobacco Use Types Packs/Day Years Used Date Smoking Tobacco: Never Assessed Sex Assigned at Date Recorded Not on file documented as of this encounter Last Filed Vital Signs Vital Sign Reading Time Taken Comments Blood Pressure - - Pulse - - Temperature - - Respiratory Rate - - Oxygen Saturation - - Inhaled Oxygen Concentration - - Weight - - Height 177 cm (5' 9.69) 10/15/2013 9:48 AM CDT Body Mass Index - - documented in this encounter Plan of Treatment Not on filedocumented as of this encounter Procedures Procedure Name Priority Date/Time Associated Diagnosis Comme nts BI BREAST SCREENING Routine 10/15/2013 9:58 AM Re sults for this BILATERAL CDT procedure are i n the results section. documented in this encounter Results BI Breast Screening Bilateral (10/15/2013 9:58 AM CDT) Anatomical Region Laterality Modality Breast Bilateral Mammography Specimen (Source) Anatomical Collection Method Collection Time Re ceived Time Location / / Volume Laterality 10/15/2013 9:58 AM CDT Addenda Addendum by Provider, Magali Navarrete 10/15/2013 9:58 AM CDT RAD^^^JOE DIAZ Mammo Screening w/ CADD 10/15/2013 09:58:40 Impressions 10/15/2013 10:46 AM CDT Negative mammogram. ??Recommend annual screening mammography. BREAST MAMMOGRAPHY - GENERAL OBSERVATION S: ??The false negative rate for mammography is 15-20%. ??It cannot b e used, therefore, to replace the regular physical examination. ??A no rmal or noncontributory mammogram report also should not deter t he aggressive further workup of any suspected palpable masses. ACR Code 1. Narrative 10/15/2013 10:46 AM CDT Comparison: 09/25/2012, 07/30/2011. FINDINGS: Breast tissue demonstrates sca ttered fibroglandular tissue. No evidence of suspicious mass, clustere d microcalcification, architectural distortion. Computer aided detection utilized during interpretation of this exam. Procedure Note Lewis Terrazas M.D. / Provider, His helio M.D. - 07/24/2016 Comparison: 09/25/2012, 07/30/2011. FINDINGS: Breast tissue demonstrates sca ttered fibroglandular tissue. No evidence of suspicious mass, clustere d microcalcification, architectural distortion. Computer aided detection utilized during interpretation of this exam. IMPRESSION: Negative mammogram. Recommen d annual screening mammography. BREAST MAMMOGRAPHY - GENERAL OBSERVATION S: The false negative rate for mammography is 15-20%. It cannot be used, therefore, to replace the regular physical examination. A norm al or noncontributory mammogram report also should not deter t he aggressive further workup of any suspected palpable masses. ACR Code 1. Josephine Isaac(R)(CT)Marlin(R)(M) IMG BI PROCEDURES documented in this encounter Visit Diagnoses Not on filedocumented in this encounter
--- OUTSIDE RECORDS SUMMARY | 2021-12-03 11:10 | XMS_ITS | Encounter Summary ---
:1955 Author Organization [facility] Address [address] [place] [address] Care Team Providers Name Role Phone Elsewhere, Pcp Primary Care Provider Unavailable Encounter Details Date Type Department Care Team Description 06/29/2010 Historical Ophthalmology RST O[facility] Mariana Gupta M.D. [address] [place], [place] [address] (Wo rk) Social History Tobacco Use Types Packs/Day Years Used Date Smoking Tobacco: Never Assessed Sex Assigned at Date Recorded Not on file documented as of this encounter Progress Notes Mariana Gupta M.D. - 06/29/2010 10:51 AM CDT Eye General CHIEF COMPLAINT Macular Degeneration HISTORY OF PRESENT ILLNESS This is a 54 year old female here for evaluation of Macular Degeneration. Blurred vision; both eyes;x several years; constantly; symptoms are resolved with glasses. Floaters alone; both eyes; x several years; occasionally. Denies flashes of light. Patient denies ocular pain. IMPRESSION / REPORT / PLAN OCT [place]: PHOTOS: FAF: CDM Reports - EYEGEN Id: [id number] Status: Fnl documented in this encounter Plan of Treatment Not on filedocumented as of this encounter Visit Diagnoses Not on filedocumented in this encounter Additional Health Concerns Infection Onset Date Last Indicated Resolved Time COVID19 Pending 01/26/2020 01/26/2020 01/27/2020 6:42 PM STRING CUTTER COVID19 Pending 03/24/2020 03/24/2020 03/24/2020 11:07 PM STRING CUTTER COVID19 Pending 04/21/2020 04/21/2020 04/21/2020 2:23 PM STRING CUTTER COVID19 Pending 04/21/2020 04/21/2020 04/22/2020 3:12 PM STRING CUTTER COVID19 Pending 05/14/2020 05/14/2020 05/14/2020 10:35 PM STRING CUTTER COVID19 05/14/2020 05/14/2020 06/03/2020 4:46 AM CDT COVID19 Pending 12/26/2020 12/26/2020 12/27/2020 1:21 PM CDT COVID19 Pending 01/05/2021 01/05/2021 01/05/2021 4:41 PM CDT COVID19 Pending 01/05/2021 01/05/2021 01/07/2021 2:03 AM CDT COVID19 Pending 01/30/2021 01/30/2021 01/30/2021 11:38 PM STRING CUTTER COVID19 01/30/2021 01/30/2021 02/19/2021 5:07 AM STRING CUTTER documented as of this encounter Care Teams Dolly Pusher Relationship Specialty Start Date End Date Elsewhere, Pcp PCP - General Internal Medicine 11/21/21 documented as of this encounter
--- OUTSIDE RECORDS SUMMARY | 2021-12-03 11:10 | XMS_ITS | Encounter Summary ---
:1955 Author Organization [place] Address [address] [facility] [address] Care Team Providers Name Role Phone No Ref-Primary, Physician Primary Care Provider [phone] Encounter Details Date Type Department Care Team Description 09/07/2021 Medical Correspondence Health [place] Scan, ORDER UROLOGY [facility] Info [facility] Non-Provider [facility] [address] [place] [address] Social History Tobacco Use Types Packs/Day Years [...] on filedocumented in this encounter Care Teams Full Roll Inspector Relationship Specialty Start Date End Date No Ref-Primary, Physician PCP - General 04/29/17 documented as of this encounter
--- OUTSIDE RECORDS SUMMARY | 2021-12-03 11:10 | XMS_ITS | Encounter Summary ---
:1955 Author Organization [facility] Address [address] [place] [address] Care Team Providers Name Role Phone Elsewhere, Pcp Primary Care Provider Unavailable Encounter Details Date Type Department Care Team Description 06/30/2010 Historical Ophthalmology RST OPH Mariana Gupta M.D. [address] [place], [place] [address] (Wo rk) Social History Tobacco Use Types Packs/Day Years Used Date Smoking Tobacco: Never Assessed Sex Assigned at Date Recorded Not on file documented as of this encounter Progress Notes Mariana Gupta M.D. - 06/30/2010 8:29 AM CDT Eye General CHIEF COMPLAINT Evaluation of Macular Degeneration HISTORY OF PRESENT ILLNESS This is a 54 year old female here for evaluation of Macular Degeneration. Patient was diagnosed withMacular Degeneration six months ago, patient is using Eye Promise Restore supplement. Patient is unfamiliar with Amsler grid. Patient notes her vision has gotten progressively worse since turning [age], every time she is seen she is having to adjust her prescription. Blurred vision; both eyes; x several years; constantly; symptoms are resolved with glasses. Floaters alone; both eyes; x several years;primarily when patient closes her eyes. Patient notes that she has wavy and distorted vision at the onset of a migraine; x several years; rarely. Denies flashes of light. Patient denies ocular pain. Patient has severe dry eye and is using Systane. No other eye concerns. IMPRESSION / REPORT / PLAN Consult requested by: Nilam Nielsen O.D. at [facility] 06/29/2010: OCT of macular: normal foveal contour both eyes 06/29/2010: color photos: consistent with exam 06/29/2010: AF photos: normal autofluorescence pattern both eyes #1 macular drusen, cuticular, both eyes family history of macualr degenration (mother) per patient. Long discussion with patient and . Recommend lifestyle, monitor Amsler, yearly eye exams with local eye care provider and here prn. AAO AMD pamphlet given to patient and reviewed. #2 Dry eye syndrome increased artificial tears. Follow up with local eye care provider. Patient is interested in whethershe is a lasik candidate. Corneal referral prn. She will consider. Discussed all of the above with patient who states that he/she understands and agrees with plan. Copy of CDM to Dr. Nielsen per patient request. DIAGNOSIS #1 macular drusen, cuticular, both eyes #2 Dry eye syndrome CDM Reports - EYEGEN Id: [id number] Status: Fnl documented in this encounter Plan of Treatment Not on filedocumented as of this encounter Visit Diagnoses Not on filedocumented in this encounter Additional Health Concerns Infection Onset Date Last Indicated Resolved Time COVID19 Pending 01/26/2020 01/26/2020 01/27/2020 6:42 PM FLAMER SEALER COVID19 Pending 03/24/2020 03/24/2020 03/24/2020 11:07 PM FLAMER SEALER COVID19 Pending 04/21/2020 04/21/2020 04/21/2020 2:23 PM FLAMER SEALER COVID19 Pending 04/21/2020 04/21/2020 04/22/2020 3:12 PM FLAMER SEALER COVID19 Pending 05/14/2020 05/14/2020 05/14/2020 10:35 PM FLAMER SEALER COVID19 05/14/2020 05/14/2020 06/03/2020 4:46 AM CDT COVID19 Pending 12/26/2020 12/26/2020 12/27/2020 1:21 PM CDT COVID19 Pending 01/05/2021 01/05/2021 01/05/2021 4:41 PM CDT COVID19 Pending 01/05/2021 01/05/2021 01/07/2021 2:03 AM CDT COVID19 Pending 01/30/2021 01/30/2021 01/30/2021 11:38 PM FLAMER SEALER COVID19 01/30/2021 01/30/2021 02/19/2021 5:07 AM FLAMER SEALER documented as of this encounter Care Teams Folding Rules Printing Machine Operator Relationship Specialty Start Date End Date Elsewhere, Pcp PCP - General Internal Medicine 11/21/21 documented as of this encounter
--- OUTSIDE RECORDS SUMMARY | 2021-12-03 11:10 | XMS_ITS | Encounter Summary ---
:1955 Author Organization [place] Address [address] [place] [address] Care Team Providers Name Role Phone No Ref-Primary, Physician Primary Care Provider [phone] Encounter Details Date Type Department Care Team Description 11/20/2021 Travel Social History Tobacco Use Types Packs/Day [...] on filedocumented in this encounter Care Teams Food Service Assistant Relationship Specialty Start Date End Date No Ref-Primary, Physician PCP - General 04/29/17 documented as of this encounter
--- OUTSIDE RECORDS SUMMARY | 2021-12-03 11:11 | XMS_ITS | Encounter Summary ---
:1955 Author Organization [place] Address [address] [place] [address] Care Team Providers Name Role Phone Vincenzo Grimaldo MD Primary Care Provider Reason for Visit Reason Onset Date Comments Refill Request 03/21/2012 Vanlafaxine Encounter Details Date Type Department Care Team Description 03/21/2012 Refill [facility] Vincenzo Grimaldo MD Refill Request Clinic [place] [address] (Vanlafaxine) [address] [place] [address] [place], [place] [phone] (Wo rk) [address] [phone] Social History Tobacco Use Types Packs/Day Years [...] this encounter Miscellaneous Notes Telephone Encounter - Regina Yaneslene - 03/21/2012 10:06 AM CST Refilled per protocol EASER OPERATOR Telephone Encounter - Amy Hatfield - 03/21/2012 10:03 AM CST Refill request from [facility] pharmacy for: Vanlafaxine Last O/V: 07/30/11 Last Refill: 10/11/11 EASER OPERATOR documented in this encounter Plan of Treatment Not on filedocumented as of this encounter Visit Diagnoses Diagnosis Flushing - Primary documented in this encounter Care Teams Validation Intern Relationship Specialty Start Date End Date Vincenzo Grimaldo MD PCP - General 07/07/07 02/24/14 documented as of this encounter
--- OUTSIDE RECORDS SUMMARY | 2021-12-03 11:11 | XMS_ITS | Encounter Summary ---
:1955 Author Organization [place] Address [address] [place] [address] Care Team Providers Name Role Phone Vincenzo Grimaldo MD Primary Care Provider Reason for Visit (Routine) - Closed Specialty Diagnoses / Procedures Referred By Contact Refer red To Contact Radiology Diagnoses SCREENING BILATERAL-DIGITAL Procedure Notes: Routine. Breast [place] Procedures RADIOLOGY [address] [place], [place] [address] Phone: Fax: Referral ID Status Reason Start Date Expiration Date Visits Requ ested Visits Authorized [id number] Closed 07/29/2011 07/28/2012 1 1 Encounter Details Date Type Department Care Team Description 07/30/2011 Hospital Encounter [facility] Ciera Navas MD [facility] [address] [place] [address] [place], [place] [phone] (Wo rk) [address] [phone] Social History Tobacco Use Types Packs/Day Years [...] Sig Dispensed Refills Start Date End Date triamterene-hydrochlorot Take 1 tablet by 90 tablet 3 07/29 hiazide (MAXZIDE-25) mouth daily as 37.5-25 MG per needed. tabletIndications: Edema naproxen (NAPROSYN) 500 Take 1 tablet by 180 tablet 3 201107/25/2017 MG tabletIndications: mouth 2 times daily Cervicalgia (with meals). NONFORMULARY solampas patches 0 2017 tramadol (ULTRAM) 50 MG Take 1-2 tablets by 60 tablet 1 01/18/2012 tabletIndications: mouth every 6 hours Cervicalgia, as needed for pain. Headache(784.0) venlafaxine (EFFEXOR) Take 1 tablet by 90 tablet 3 07/30/19 12 10/05/2011 37.5 MG mouth daily. tabletIndications: Vasomotor flushing VITAMIN D 1000 UNIT PO 1 TABLET DAILY 90 Tab 3 0 07/25/2017 TABSIndications: Annual physical exam zolpidem (AMBIEN CR) Take 1 tablet by 30 tablet 2 2 11/02/2011 12.5 MG CR mouth nightly as tabletIndications: needed for sleep. Insomnia documented as of this encounter Plan of Treatment Not on filedocumented as of this encounter Procedures Procedure Name Priority Date/Time Associated Diagnosis Comme nts MA SCREENING Routine 07/30/2011 3:22 PM Results f or this DIGITAL BILATERAL CDT procedure are in the results section. documented in this encounter Results Mammo Screening digital (bilat) (07/30/2011 3:22 PM CDT) Anatomical Region Laterality Modality Breast Bilateral Other Specimen (Source) Anatomical Collection Method Collection Time Re ceived Time Location / / Volume Laterality 07/30/2011 3:22 PM CDT Impressions 08/02/2011 7:30 AM CDT SCREENING MAMMOGRAM, BILATERAL, DIGITAL w/CAD BREAST SYMPTOMS/COMPARISON: 04/27/2010, BREAST PARENCHYMAL PATTERN: Heterogeneou sly dense. COMMENTS: Possible subtle developing nod ular density right upper-outer breast. Additional mammographic views an d possibly ultrasound recommended. IMPRESSION: ??BI-RADS 0, INCOMPLETE: NEE D ADDITIONAL IMAGING EVALUATION. Vincenzo Grimaldo MD IMG MAMMOGRAPHY ORDERABLES documented in this encounter Visit Diagnoses Not on filedocumented in this encounter Care Teams Texture Artist Relationship Specialty Start Date End Date Vincenzo Grimaldo MD PCP - General 07/07/07 02/24/14 documented as of this encounter
--- OUTSIDE RECORDS SUMMARY | 2021-12-03 11:11 | XMS_ITS | Encounter Summary ---
:1955 Author Organization [facility] Address [address] 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 Cough; [address] Acute bronchitis with symptoms > 10 days ; [place], [place] Fever, unspecified; [place] [address] Anxiety [id number] [phone] Social History Tobacco Use Types Packs/Day Years [...] Sign Reading Time Taken Comments Blood Pressure 128/76 10/11/2011 4:06 PM CDT Pulse 86 10/11/2011 4:06 PM CDT Temperature 36.7 ??C (98.1 ??F) 10/11/2011 4:06 PM CDT Respiratory Rate 20 10/11/2011 4:06 PM CDT Oxygen Saturation 98% 10/11/2011 4:06 PM CDT Inhaled Oxygen Concentration - - Weight 98.8 kg (217 lb 12.8 oz) 10/11/2011 4:06 PM CDT Height 177.8 cm (5' 10) 10/11/2011 4:06 PM CDT Body Mass Index 31.25 10/11/2011 4:06 PM CDT documented in this encounter Patient Instructions Patient InstructionsAlexandria Olivares - 10/11/2011 4:05 PM CDT Rocephin today injectable Robitussin with codeine every 4 hours as needed for cough Will treat with Zithromax 250mg, 2 tabs by mouth day 1, then 1 tab by mouth days 2-5. She is to watch for GI upset, diarrhea or rash. May take claritin or lisa- generic daily for allergy type symptoms; will help with post nasal drip. Or zyrtec once at bedtime; may be more sleep inducing These are all non-sedating antihistamines, but zyrtec may make you slightly sleepy so better to take that one at bedtime Tylenol or ibuprofen as needed for pain Please, call or return to clinic if signs or symptoms worsen or fail to improve as anticipated You can reach your [facility] Care Team any time of the day by calling [phone]. This number will put you in touch with the 24 hour nurse line even if the clinic is closed. The clinic hours for [facility] are: Tuesday through 7am to 6pm Tuesday 7am to 5pm Tuesday 8am to 12p for Pediatrics only. To contact your Commissioned Security Officer please call [phone]. This is a direct number for your care team during clinic hours. [facility] is now open for your convenience: Tuesday through Tuesday 7:30am to 7pm Tuesday and Tuesday 9am to 3pm They are closed on all major holidays. 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 Demerol Nausea and Vomiting ??? Percodan (Oxycodone-Aspirin) Nausea and Vomiting Current Outpatient Prescriptions on File Prior to Visit: zolpidem (AMBIEN CR) 12.5 MG CR tablet Take 1 tablet by mouth nightly as needed for sleep. triamterene-hydrochlorothiazide (MAXZIDE-25) 37.5-25 MG per tablet Take 1 tablet by mouth daily as needed. naproxen (NAPROSYN) 500 MG tablet Take 1 tablet by mouth 2 times daily (with meals). NONFORMULARY solampas patches tramadol (ULTRAM) 50 MG tablet Take 1-2 tablets by mouth every 6 hours as needed for pain. VITAMIN D 1000 UNIT PO TABS 1 TABLET DAILY PAST MEDICAL HISTORY: Past Medical History Diagnosis Date ??? 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 Leiomyoma of uterus, unspecified ??? Cervicalgia ??? DDD (degenerative disc disease), cervical PAST SURGICAL HISTORY: Past Surgical History Procedure Date ??? Arthroscopy knee rt/lt 04/2005 Left knee meniscus repair ??? Hc colonoscopy thru stoma, diagnostic 03/21/2003 Normal FAMILY HISTORY: Family History Problem Relation Age of Onset ??? Arthritis Mother age 87, had severe RA ??? C.A.D. Father age 67, first [place] in his 20's or 30's (?); had a history of scarlet fever ??? Stroke Mother TIA ??? Hypertension Son 2 SONS WITH ENLARGED VENTRICLE - [facility] ??? C.A.D. Brother Born 1940, [place] at age 69, also lumbar fusion ??? Family History Negative Sister One at age 2 yo. ??? Family History Negative Brother Born 1941 ??? Thyroid Sister Born 1953, lumbar fusion ??? Thyroid Sister Born 1946, lumbar fusion SOCIAL HISTORY: History Substance Use Topics ??? Smoking status: Never Smoker ??? Smokeless tobacco: Never Used ??? Alcohol Use: Yes 4-5 glasses of wine a week ROS: 10 point ROS neg other than the symptoms noted above in the HPI. BP 128/76 Pulse 86 Temp(Src) 98.1 ??F (36.7 ??C) (Oral) Resp 20 Ht 5' 10 (1.778 m) Wt 217lb 12.8 oz (98.793 kg) BMI 31.25 kg/m2 SpO2 98% EXAM: Constitutional: alert and moderate distress Cardiovascular: RRR. No murmurs, clicks gallops or rub Respiratory: Good diaphragmatic excursion. Lungs clear; deep breath stimulates cough Psychiatric: mentation appears normal and affect normal/bright Head: Normocephalic. No masses, lesions, tenderness or abnormalities Neck: Neck supple. moderate anterior adenopathy. ENT: ENT exam normal, no neck nodes no sinus tenderness, but has sinus pressure ASSESSMENT/PLAN: 1. Throat pain Rapid strep screen, cefTRIAXone (ROCEPHIN) 1 GM injection, Beta strep group A culture, DISCONTINUED: azithromycin (ZITHROMAX) 250 MG tablet 2. Cough cefTRIAXone (ROCEPHIN) 1 GM injection, guaiFENesin-codeine (ROBITUSSIN AC) 100-10 MG/5ML SOLN, Beta strep group A culture, DISCONTINUED: azithromycin (ZITHROMAX) 250 MG tablet 3. Acute bronchitis with symptoms > 10 days cefTRIAXone (ROCEPHIN) 1 GM injection, guaiFENesin-codeine (ROBITUSSIN AC) 100-10 MG/5ML SOLN, Beta strep group A culture, DISCONTINUED: azithromycin (ZITHROMAX) 250 MG tablet 4. Fever, unspecified Beta strep group A culture 5. Anxiety GENERAL ANXIETY DISORDER QUESTIONNAIRE (VINCE-7) Discussed inhaler, but feel her lungs are ok at this point to not do that. If she feels she would like to do that, she will call back to let me know Rocephin today injectable Robitussin with codeine every 4 hours as needed for cough Will treat with Zithromax 250mg, 2 tabs by mouth day 1, then 1 tab by mouth days 2-5. She is to watch for GI upset, diarrhea or rash. May take claritin or lisa- generic daily for allergy type symptoms; will help with post nasal drip. Or zyrtec once at bedtime; may be more sleep inducing These are all non-sedating antihistamines, but zyrtec may make you slightly sleepy so better to take that one at bedtime Tylenol or ibuprofen as needed for pain Please, call or return to clinic if signs or symptoms worsen or fail to improve as anticipated Christiana Hernandes BLOCK CLEANER-C documented in this encounter Nursing Notes 10/11/2011 3:45 PM CDT >> ALEXANDRIA OLIVARES Mon Oct 11, 2011 4:10 PM Patient presents with: Cough - has productive cough, greenish phlegm, sinus pressure and drainage, ringing in ears, sore throat, would like a chest xray, has had x 2 weeks Pre Visit Planning - Done - not needed Initial BP 128/76 Pulse 86 Temp(Src) 98.1 ??F (36.7 ??C) (Oral) Ht 5' 10 (1.778 m) Wt 217 lb 12.8 oz (98.793 kg) BMI 31.25 kg/m2 SpO2 98% Estimated Body mass index is 31.25 kg/(m^2) as calculated from the following: Height as of this encounter: 5' 10(1.778 m). Weight as of this encounter: 217 lb 12.8 oz(98.793 kg).. BP completed using cuff size: large documented in this encounter Plan of Treatment Not on filedocumented as of this encounter Procedures Procedure Name Priority Date/Time Associated Diagnosis Comme nts RAPID STREP SCREEN JOELLE 10/11/2011 4:17 PM Throat pain Res ults for this THROAT SWAB CDT procedure are i n the results section. BETA HEMOLYTIC Routine 10/11/2011 4:17 PM Throat pain Results for this STREP GROUP A CDT Cough procedure are in CULTURE Acute bronchitis the results with symptoms > 10 section. days Fever, unspecified documented in this encounter Results Beta strep group A culture (10/11/2011 4:17 PM CDT) Component Value Ref Test Analysis Performed At [facility] [employer] Range Method Time Signature Specimen Throat [facility] LAB Culture Micro No Beta [place] Streptococcus [facility] Micro Report FINAL 10/13/2011 [facility] LAB Specimen Anatomical Collection Method Collection Time Receive d Time (Source) Location / / Volume Laterality Specimen from 10/11/2011 4:17 PM 10/11/19 12 4:23 throat CDT PM CDT (specimen) Christiana Hernandes APRN, CNP LAB - MICRO GENERAL ORDERA BLES Performing Organization Address [facility] Phon e Number [facility] [address], [place] [address] [address] [facility] Rapid strep screen (10/11/2011 4:17 PM CDT) Component Value Ref Test Analysis Performed At [facility] [employer] Range Method Time Signature Specimen Throat [facility] LAB Rapid Strep A NEGATIVE: No Group A strepto coccal antigen detected by immunoassay, await [place]IEW Screen culture report. [facility] Micro Report FINAL 10/11/2011 [facility] LAB Specimen Anatomical Collection Method Collection Time Receive d Time (Source) Location / / Volume Laterality Specimen from 10/11/2011 4:17 PM 10/11/19 12 4:23 throat CDT PM CDT (specimen) Christiana Hernandes APRN, CNP LAB - MICRO GENERAL ORDERA BLES Performing Organization Address City/[facility]/ZIP [facility] Phon e Number [facility] [address], [place] [address] [address] [facility] documented in this encounter Visit Diagnoses Diagnosis Throat pain - Primary Cough Acute bronchitis with symptoms > 10 days Acute bronchitis Fever, unspecified Anxiety Anxiety state, unspecified documented in this encounter Care Teams Waterfront Director Relationship Specialty Start Date End Date Vincenzo Grimaldo MD PCP - General 07/07/07 02/24/14 documented as of this encounter
--- OUTSIDE RECORDS SUMMARY | 2021-12-03 11:11 | XMS_ITS | Encounter Summary ---
:1955 Author Organization [facility] Address [address] [place] [id number] Care Team Providers Name Role Phone No Ref-Primary, Physician Primary Care Provider Reason for Visit Auth/Cert Specialty Diagnoses / Procedures Referred By Contact Refer red To Contact Surgery Diagnoses left knee degenerative joint disease Rh Periop Service s Procedures ARTHROPLASTY KNEE [address], [place] [address] Phone: Fax: Referral ID Status Reason Start Date Expiration Date Visits Requ ested Visits Authorized [id number] 1 1 Encounter Details Date Type Department Care Team Description 08/15/2017 Anesthesia Event [facility] Alejandra Hough PeriOp Services MD James [address] [place], [place] ANESTHESIA [id number] [address] [phone] [place], [place] [address] Anesthesia Record Procedure Summary Procedure Name Responsible Anesthesia Start Anesthesia Stop Anesthesiologist Time Time Left total knee Nicolas Hough, 08/15/17 0834 1025 arthroplasty (Left Knee) Events Date Time Event Comment 08/15/2017 0834 An Start 0834 Present 0836 An Start Data 0838 Present 0839 An Induction 0840 AN START SEVO 0841 LMA Removed 0842 Present 0859 An Tourn Inflated 0900 AN INCISION 0956 MD Present 1016 AN END SEVO 1017 An Tourn Deflated 1022 an stop data 1025 An Stop Electronically s igned by Chiquita Ann on August 15, 2017 10:31 AM 1025 Present Name Total midazolam 1mg/mL 2 mg fentaNYL (SUBLIMAZE) injection 100 mcg propofol (DIPRIVAN) injection 10 mg/mL vial 200 mg propofol infusion (mcg/kg/min) 154.98 mg lidocaine 1% 50 mg dexamethasone 4 mg/mL 4 mg ondansetron 2 mg/mL 4 mg HYDROmorphone 1 mg/ml 0.5 mg bupivacaine 0.5% with EPINEPHrine 1:200,000 30 mL ceFAZolin (ANCEF) intermittent infusion 2 g in 100 mL dextrose PRE-MIX 2 g tranexamic acid (CYKLOKAPRON) infusion 1 g 1 g tranexamic acid (CYKLOKAPRON) infusion 1 g 1 g lactated ringers infusion 1,000 mL Agents Name NO HELIOX O2 N2O Air Exp Sevoflurane Exp Isoflurane Exp Desflurane Exp N2O Ins Sevoflurane Ins Isoflurane Ins Desflurane O2 Auxiliary Blood No blood administrations on file. Lines, Drains, and Airways Type Details Placement Removal Incision/Surgical Site 08/15/17; 0923; Left; 08/15/17 0923 by Knee Deja Salcedo RN Urethral Catheter 08/15/17; No; 08/15/17 0000 by 08/16/17 0700 by Anesthesia; 16 fr Deja Salcedo RN Fonder, B arbara L, RN Closed/Suction Drain 08/15/17; 1; Left; 08/15/17 0000 by 8 0700 by Knee; (03/21 Hemovac Deja Salcedo RN Fonder, Barbara L, hooked to suction RN reservoir); 10 Vietnamese Peripheral IV 08/15/17; 0814; 20 G, 1 08/15/17 0814 by 8 0100 by /4 inch; Left, Dorsal; Nicolas Hough Laura M, Hand; Alcohol; MD James RN Injectable; Tolerated well Retired Non-Surgical 08/15/17; 0841; Easy; 08/15/17 0841 by 06/29 1021 by Airway Intravenous; Shaji Ann, Chiquita Guzman, FARM MANAGEMENT SUPERVISORRaquel Lane, performed; 4; laryngeal PASSENGER CAR UPHOLSTERER APPRENTICE FARM MANAGEMENT SUPERVISOR CRN A mask airway; Equal, clear and bilateral; PASSENGER CAR UPHOLSTERER APPRENTICE; kristyn; NMB Reversed, Spontaneous ventilation, Adequate tidal volume, Follows commands, Environmental Project Manager strength adequate, Head lift adequate, Transported with oxygen, Purposeful movement documented in this encounter Social History Tobacco Use Types Packs/Day Years [...] on file documented as of this encounter OR Notes Anesthesia Postprocedure Evaluation - Nicolas Hough MD - 08/15/2017 10:57 AM CDT Patient: Gloria Bonilla Procedure(s): left total knee arthroplasty - Wound Class: I-Clean Diagnosis:left knee degenerative joint disease Diagnosis Additional Information: Osteoarthritis, left knee (valgus) Anesthesia Type: General, LMA, Periph. Nerve Block for postop pain Note: Anesthesia Post Evaluation Patient location during evaluation: PACU Patient participation: Able to fully participate in evaluation Level of consciousness: awake and alert Pain management: adequate Airway patency: patent Cardiovascular status: acceptable Respiratory status: acceptable Hydration status: acceptable PONV: none Anesthetic complications: None Last vitals: Vitals: 08/15/17 0830 08/15/17 1025 08/15/17 1035 BP: 152/78 (!) 153/96 133/69 Pulse: Resp: 10 24 8 Temp: 98.8 ??F (37.1 ??C) SpO2: 94% 97% 97% Electronically Signed By: Nicolas Hough MD August 15, 2017 10:57 AM Anesthesia Procedure Notes - Nicolas Hough MD - 08/15/2017 8:29 AM CDTAssociated Order(s): ANE PERIPHERAL/PARAVETEBRAL BLOCK Peripheral nerve/Neuraxial procedure note : Saphenous and Adductor canal Pre-Procedure Performed by NICOLAS HOUGH Location: pre-op Procedure Times:08/15/2017 8:19 AM and 08/15/2017 8:29 AM Pre-Anesthestic Checklist: patient identified, IV checked, site marked, risks and benefits discussed, informed consent, monitors and equipment checked, pre-op evaluation, at physician/surgeon's requestand post-op pain management Timeout Correct Patient: Yes Correct Procedure: Yes Correct Site: Yes Correct Laterality: Yes Correct Position: Yes Site Marked: Yes . Procedure Documentation . Procedure: left Saphenous and Adductor canal. Local skin infiltrated with 0.2 mL of 1% lidocaine. Ultrasound used to identify targeted nerve, plexus, or vascular marker and placed a needle adjacentto it., Ultrasound was used to visualize the spread of the anesthetic in close proximity to the above stated nerve. Patient Prep;mask, sterile gloves, povidone-iodine 7.5% surgical scrub. . Needle: insulated Needle Gauge: 22. Needle Length (millimeters) 80 Insertion Method: Single Shot. Assessment/Narrative Paresthesias: No. Injection made incrementally with aspirations every 5 mL.. The placement was negative for: blood aspirated, painful injection and site bleeding. Bolus given via needle.. Secured via. Complications: none. Comments: 40 ml 0.5% bupivicaine with 1:200,000 epinephrine placed. Anesthesia Preprocedure Evaluation - Nicolas Hough MD - 08/15/2017 8:11 AM CDT Anesthesia Evaluation . Pt has had prior anesthetic. Type: General No history of anesthetic complications ROS/MED HX ENT/Pulmonary: - neg pulmonary ROS Neurologic: (+)other neuro essential tremor Cardiovascular: - neg cardiovascular ROS METS/Exercise Tolerance: Hematologic: - neg hematologic ROS Musculoskeletal: Comment: Degenerative cervical disk disease (+) arthritis, , , - GI/Hepatic: - neg GI/hepatic ROS Renal/Genitourinary: - ROS Renal section negative Endo: - neg endo ROS Psychiatric: (+) psychiatric history anxiety Infectious Disease: - neg infectious disease ROS Malignancy: - no malignancy Other: - neg other ROS Physical Exam Normal systems: cardiovascular, pulmonary and dental Airway Mallampati: II TM distance: >3 FB Neck ROM: full Dental Cardiovascular Pulmonary Anesthesia Plan History & Physical Review History and physical reviewed and following examination; no interval change. ASA Status: 1 . NPO Status: > 8 hours Plan for General, LMA and Periph. Nerve Block for postop pain with Intravenous and Propofol induction. Maintenance will be Balanced. PONV prophylaxis: Ondansetron (or other 5HT-3) and Dexamethasone or Solumedrol Postoperative Care Postoperative pain management: IV analgesics, Oral pain medications and Peripheral nerve block (Single Shot). Consents Anesthetic plan, risks, benefits and alternatives discussed with: Patient or veterans service representative and Patient.. . documented in this encounter Miscellaneous Notes Anesthesia Care Transfer Note - Chiquita Ann APRN CRNA - 08/15/2017 10:30 AM CDT Patient: Gloria Bonilla Procedure(s): left total knee arthroplasty - Wound Class: I-Clean Diagnosis: left knee degenerative joint disease Diagnosis Additional Information: No value filed. Anesthesia Type: General, LMA, Periph. Nerve Block for postop pain Note: Airway :Face Mask Patient transferred to:PACU Comments: VSS. Spontaneously breathing O2 per open face mask. Report given to RN.Handoff Report: Identifed the Patient, Identified the Reponsible Provider, Reviewed the pertinent medical history, Discussed the surgical course, Reviewed Intra-OP anesthesia mangement and issues during anesthesia, Set expectations for post-procedure period and Allowed opportunity for questions and acknowledgement of understanding Vitals: (Last set prior to Anesthesia Care Transfer) PASSENGER CAR UPHOLSTERER APPRENTICE VITALS 08/15/2017 0952 - 08/15/2017 1030 08/15/2017 NIBP: 122/80 Pulse: 76 NIBP Mean: 89 SpO2: 99 % Resp Rate (observed): 8 Electronically Signed By: Chiquita Ann APRN CRNA August 15, 2017 10:30 AM documented in this encounter Plan of Treatment Not on filedocumented as of this encounter Procedures Procedure Name Priority Date/Time Associated Diagnosis Comme nts ANE Routine 08/15/2017 8:34 AM CDT PERIPHERAL/PARAVETEBRAL BLOCK Procedure Note - Nicolas Hough MD - 08/15/2017 8:29 AM CDTThis note is in progress. Formatting of this note migh t be different from the original. Peripheral nerve/Neuraxial p rocedure note : Saphenous and Adductor canal Pre-Procedure Performed by HERMELINDA HOUGH Location: pre-op Procedure Times:08/15/2017 8:1 9 AM and 08/15/2017 8:29 AM Pre-Anesthestic Checklist: p atient identified, IV checked, site marked, risks and benefits discussed, informed consent, monitors and equipment checked, pre-op evaluation, at physician/surgeon's request and post-op pain management Timeout Correct Patient: Yes Correct Procedure: Yes Correct Site: Yes Correct Laterality: Yes Correct Position: Yes Site Marked: Yes . Procedure Documentation . Procedure: left Saphenous an d Adductor canal. Local skin infiltrated with 0.2 mL of 1% lidocaine. Ultrasound used to identify targeted nerve, plexus, or vascular marker and placed a needle adjacent to it., Ultrasound was used to visualize the spread of the anesthetic in close proximity to the above stated nerve. Patient Prep;mask, sterile g loves, povidone-iodine 7.5% surgical scrub. . Needle: insulated Needle Gauge: 22. Needle Length (millimeters) 80 Insertion Method: Single Shot. Assessment/Narrative Paresthesias: No. Injection made incrementally with aspirations every 5 mL.. The placement was negative for: blood aspirated, painful injection and site bleeding. Bolus given via needle.. Secured via. Complications: none. Comment s: 40 ml 0.5% bupivicaine with 1:200,000 epinephrine placed. documented in this encounter Visit Diagnoses Not on filedocumented in this encounter Administered Medications Inactive Administered Medications - up to 3 most recent administrations Medication Order MAR Action Action Date Dose Rate Site bupivacaine 0.5 % - EPINEPHrine Given 08/15/2017 8:29 AM CDT 30 mLs 1:200,000 injection PRN, Starting on 08/15/17 at 0829, Anesthesia Intra-op ceFAZolin (ANCEF) intermittent infusion 2 g in Given 018 8:48 AM CDT 2 g 100 mL dextrose PRE-MIX Routine, 2 g, Intravenous, PRE-OP/PRE-PROCEDURE, Starting on Tue08/15/17 at 0650, For 1 dose, Give first dose within 1 hour PRIOR to incision. If patient weight is greater than or equal to 120 kg increase dose to 3 g., Indications: Perioperative Pharmacoprophylaxis, Pre-procedure dexamethasone (DECADRON) injection Given 08/15/2017 8:39 AM CDT 4 mg Intravenous, PRN, Administer over 1 Minutes, Starting on Tue08/15/17 at 0839, Anesthesia Intra-op fentaNYL (PF) (SUBLIMAZE) injection Given 08/15/2017 8:39 AM CDT 100 mcg PRN, moderate to severe pain, Administer over 3-5 Minutes, Starting on Tue08/15/17 at 0839, Anesthesia Intra-op HYDROmorphone (DILAUDID) injection Given 08/15/2017 9:18 AM CDT 0.25 mg Intravenous, PRN, moderate to severe pain, Starting on Tue08/15/17 at 0907, Anesthesia Intra-op Given 08/15/2017 9:07 AM CDT 0.25 mg lactated ringers infusion New Bag 08/15/2017 10:05 AM CDT at 25 mL/hr, Intravenous, CONTINUOUS, IF patient NOT on dialysis., Pre-procedure, Starting on Tue08/15/17 at 0700, Until Tue08/15/17 at 1025 New Bag 08/15/2017 8:34 AM CDT lidocaine 1 % injection Given 08/15/2017 8:39 AM CDT 50 mg Intravenous, PRN, Starting on Tue08/15/17 at 0839, Anesthesia Intra-op midazolam (VERSED) injection Given 08/15/2017 8:19 AM CDT 2 mg Administer over 2 Minutes, PRN, anxiety, Starting on Tue08/15/17 at 0819, Anesthesia Intra-op ondansetron (ZOFRAN) injection Given 08/15/2017 9:50 AM CDT 4 mg Intravenous, PRN, nausea, vomiting, Administer over 2-5 Minutes, Starting on Tue08/15/17 at 0950, Anesthesia Intra-op propofol (DIPRIVAN) infusion New Bag 08/15/2017 9:04 AM 25 mcg/kg/min 16.6 mL/hr Intravenous, CONTINUOUS PRN, CDT Starting on Tue08/15/17 at 0904, Anesthesia Intra-op propofol (DIPRIVAN) injection 10 mg/mL v ial Given 08/15/2017 8:39 AM CDT 200 mg PRN, Starting on Tue08/15/17 at 0839, Anesthesia Intra-op tranexamic acid (CYKLOKAPRON) infusion 1 g Given 08/15/2017 8:55 AM CDT 1 g 1 g, Intravenous, ONCE, On Tue08/15/17 at 1000, For 1 dose, Pre-procedure tranexamic acid (CYKLOKAPRON) infusion 1 g Given 08/15/2017 10:17 AM CDT 1 g 1 g, Intravenous, ONCE, On Tue08/15/17 at 0700, For 1 dose, Send to pre op area to be given just prior to antibiotic., Pre-procedure documented in this encounter Care Teams Bead Trimmer Relationship Specialty Start Date End Date No Ref-Primary, Physician PCP - General 04/29/17 documented as of this encounter
--- OUTSIDE RECORDS SUMMARY | 2021-12-03 11:11 | XMS_ITS | Encounter Summary ---
:1955 Author Organization [facility] Address [address] [place] [id number] Care Team Providers Name Role Phone Vincenzo Grimaldo MD Primary Care Provider Reason for Visit Reason Onset Date Comments Refill Request 10/05/2011 Venlafaxine Encounter Details Date Type Department Care Team Description 10/05/2011 Refill [facility] Vincenzo Grimaldo MD Refill Request [facility] [address] (Venlafaxine) [address] [place] [address] [place] [address] [place], [place] [phone] (Wo rk) [id number] [phone] Social History Tobacco Use Types Packs/Day Years [...] Notes Telephone Encounter - Regina Yaneslene - 10/06/2011 7:46 AM CDT CHARLI 124/68 ALT 20 07/30/2011 Creatinine Date Value Range Status 07/30/2011 0.60 0.52-1.04 (mg/dL) Final Recent Labs Lab Test 07/30/11 1452 08/22/09 0957 CHOL 246* 213* HDL 68 64 LDL 144* 121 TRIG 169* 142 CHOLHDLRATIO 3.6 3.4 MD approval required Please advise Telephone Encounter - Amy Hatfield - 10/05/2011 3:52 PM CDT Refill request from [facility] for: Venlafaxine Last O/V: 07/30/11 Last Refill: 07/30/11 documented in this encounter Plan of Treatment Not on filedocumented as of this encounter Visit Diagnoses Diagnosis Vasomotor flushing - Primary Flushing documented in this encounter Care Teams Cone Examiner Relationship Specialty Start Date End Date Vincenzo Grimaldo MD PCP - General 07/07/07 02/24/14 documented as of this encounter
--- OUTSIDE RECORDS SUMMARY | 2021-12-03 11:11 | XMS_ITS | Encounter Summary ---
:1955 Author Organization [facility] Address [address] [place] [id number] Care Team Providers Name Role Phone Vincenzo Grimaldo MD Primary Care Provider Encounter Details Date Type Department Care Team Description 08/10/2011 [facility] Only [facility] Linda Hawkins Abnormal mammogram [facility] (Primary Dx) [address] [facility], [address] [place] [address] Social History Tobacco Use Types Packs/Day Years [...] as of this encounter Visit Diagnoses Diagnosis Abnormal mammogram - Primary Abnormal mammogram, unspecified documented in this encounter Care Teams Treasury Associate Relationship Specialty Start Date End Date Vincenzo Grimaldo MD PCP - General 07/07/07 02/24/14 documented as of this encounter
--- OUTSIDE RECORDS SUMMARY | 2021-12-03 11:11 | XMS_ITS | Encounter Summary ---
:1955 Author Organization [place] Address [facility] [place] [address] Care Team Providers Name Role Phone No Ref-Primary, Physician Primary Care Provider [phone] Reason for Referral Rehab Therapy Physical Therapy Specialty Diagnoses / Procedures Referred By Contact Refer red To Contact Nadine Erickson PA-C [facility] [address] [place] [address] Referral ID Status Reason Start Date Expiration Date Visits Requ ested Visits Authorized Reason for Visit Auth/Cert Specialty Diagnoses / Procedures Referred By Contact Refer red To Contact Surgery Diagnoses left knee degenerative joint disease Rh Periop Service s Procedures ARTHROPLASTY KNEE [address] [place], [place] [phone] Phone: Fax: Referral ID Status Reason Start Date Expiration Date Visits Requ ested Visits Authorized [id number] 1 1 Encounter Details Date Type Department Care Team Description 08/15/2017 - Hospital Encounter [facility] Maninder Chang atus post total 08/18/2017 [facility] Ortho Spine MD Marlo left knee [address] [facility] replacement [place], [place] ORTHOPEDICS (Primary Dx) [id number] [phone] [phone] Social History Tobacco Use Types Packs/Day Years [...] Sign Reading Time Taken Comments Blood Pressure 138/61 08/18/2017 7:54 AM CDT Pulse 73 08/15/2017 8:28 PM CDT Temperature 36 ??C (96.8 ??F) 08/18/2017 7:54 AM CDT Respiratory Rate 16 08/18/2017 8:46 AM CDT Oxygen Saturation 93% 08/18/2017 7:54 AM CDT Inhaled Oxygen Concentration - - Weight 110.7 kg (244 lb) 08/15/2017 6:45 AM CDT Height 175.3 cm (5' 9) 08/15/2017 6:45 AM CDT Body Mass Index 36.03 08/15/2017 6:45 AM CDT documented in this encounter Discharge Summaries Nadine Erickson PA-C - 08/18/2017 6:32 AM CDT Diagnosis: left DJD knee Procedure: left Cemented total knee replacement Surgeon: Maninder Chang MD Patient underwent total knee replacement without complication. Patient had typical transient post-opanemia. Patient's hospital stay included physical therapy and DVT prophylaxis. After discussion withpatient regarding no history of DVT and current high mobility, patient is discharged with ASA for home DVT pphx. Patient will follow -up in the office 10-14days post-op for wound check. Please refer tochart for any other specifics of this hospital stay. Nadine Erickson PA-C documented in this encounter Discharge Instructions Discharge InstructionsSaPatricia self RN - 08/18/2017 7:35 AM CDT Return to clinic in 10-14 days. Call [phone] to schedule or if you experience any problems before your scheduled appointment. See general discharge instruction sheet for knees 1. Do exercises at home as instructed by therapist twice a day. Continue outpatient therapy as ordered by your doctor. 2. Ice knee after exercises and therapy. 3. Examine dressing daily for problems. 4. May shower, can get dressing wet, no soaking (no bathtubs, pools or hot tubs) 5. Notify your dentist or physician of your implant so you can get antibiotics before any dental work or before any invasive procedure (ie: colonoscopy) 6. Remove anti-embolism stockings (Toney hose) overnight; wear till follow-up appt with surgeon. Wash in sink and hang to dry. Aquacel dressing: DO NOT CHANGE DRESSING DAILY. Leave this dressing on until follow-up appointment with Orthopedic Surgeon. Dressing is waterproof, can shower with it on, pat dry when done. No soaking such as in tub baths, pools or hot tubs While on narcotic pain medication, to prevent constipation: 1. Drink plenty of water to keep well hydrated 2. May take over the counter Colace or Senna (follow instructions on label) Call your physician if: ([phone]) 1. Persistent fever greater than 100 degrees with body chills or excessive sweating. 2. Increased/persistent redness, localized warmth, tenderness, drainage or swelling at incision site. Greater than 50% drainage on dressing. 3. Persistent pain not controlled with oral pain medications, ice and rest. 4. No bowel movement in 3 days (may use Milk of Magnesia or other over the counter remedy). 5. Chest pain, shortness of breath, and/or calf pain with excessive swelling. 6. Generalized feeling of illness. 7. Any other questions or concerns related to your surgery/recovery. Thank you for allowing [facility] to participate in your cares!! AttachmentsThe following attachments cannot be sent through Care Everywhere. CONSTIPATION, TREATING (STATELESS)INCENTIVE SPIROMETER, USING AN (STATELESS) documented in this encounter Medications at Time of Discharge Medication Sig Dispensed Refills Start Date End Date B Complex-C (SUPER B Take 1 tablet by 0 COMPLEX PO) mouth daily Calcium Carbonate Take 1 tablet by 0 (CALCIUM 600 PO) mouth daily DiphenhydrAMINE HCl Take 50 mg by mouth 0 (BENADRYL PO) nightly as needed hydrOXYzine (ATARAX) 25 Take 1-2 tablets 60 tablet 0 2017 MG tabletIndications: (25-50 mg) by mouth Status post total left every 6 hours as knee replacement needed for other (adjuvant pain) MULTIPLE VITAMINS/IRON Take 1 tablet by 0 PO mouth daily PRIMIDONE POIndications: Take 50 mg by mouth 0 Essential Tremor every morning propranolol (INDERAL LA) Take 120 mg by mouth 0 120 MG 24 hr capsule daily triamterene-hydrochlorot Take 1 tablet by 90 tablet 3 07/29 hiazide (MAXZIDE-25) mouth daily as 37.5-25 MG per needed. tabletIndications: Edema venlafaxine (EFFEXOR-ER) Take 150 mg by mouth 0 150 MG TB24 24 hr tablet daily (with breakfast) With 75 mg to total 225 mg. venlafaxine (EFFEXOR-XR) Take 1 capsule by 90 capsule 1 10/2012 75 MG 24 hr mouth daily. capsuleIndications: Flushing VITAMIN D, Take 2,000 Units by 0 CHOLECALCIFEROL, PO mouth daily aspirin 325 MG EC Take 1 tablet (325 58 tablet 0 08/18/2017 09/16/2017 tabletIndications: mg) by mouth 2 times Status post total left daily for 29 days knee replacement acetaminophen (TYLENOL) Take 3 tablets (975 200 tablet 0 09/201711/11/2021 325 MG mg) by mouth every 8 tabletIndications: hours Status post total left knee replacement mupirocin (BACTROBAN) 2 Apply into each nare 0 11/11/2021 % nasal ointment 2 times daily Apply small amount in each nare 2 times a day for 7 days prior to surgery naproxen (NAPROSYN) 500 Take 1 tablet (500 60 tablet 0 08/201711/11/2021 MG tabletIndications: mg) by mouth 2 times Status post total left daily (with meals) knee replacement Aspirin is to be taken a minimum of 2 hours prior to taking Naproxen. oxyCODONE IR 1 tab po q 4 hrs prn pain scale 3-6, 60 tablet 0 08/17/2017 11/11/2021 (ROXICODONE) 5 MG 2 tabs po q 4hrs prn pain scale 7-10 tabletIndications: Status post total left knee replacement senna-docusate Take 1-2 tablets by 60 tablet 0 08/17/2017 0 11/11/2021 (SENOKOT-S;PERICOLACE) mouth 2 times daily 8.6-50 MG per as needed for tabletIndications: constipation Status post total left knee replacement documented as of this encounter Progress Notes Patricia Tobias RN - 08/18/2017 12:19 PM CDT Reviewed discharge instructions and medications with patient and . Questions answered. Patient discharged to home with spouse driving, discharge instructions, medications (Aspirin/Naproxen/Tylenol/Oxycodone/Atarax/Senokot), and belongings at this time. T Leona Silveira RN - 08/18/2017 10:28 AM CDT Chief Engineer'S Helper Discharge Plans in progress: Home with Sp. Barriers to discharge plan: None Follow up plan: Ortho as indicated, NO PCP follow up indicated. Entered by: Leona Sivleira 08/18/2017 10:28 AM Nadine Erickson PA-C - 08/18/2017 6:31 AM CDT Orthopedic Surgery 08/18/2017 POD 3 S: Patient voices no unexpected ortho complaints today. Denies chest pain or shortness of breath. Feels much better today. O: Blood pressure 140/73, pulse 73, temperature 98.6 ??F (37 ??C), temperature source Oral, resp. rate 16, height 1.753 m (5' 9), weight 110.7 kg (244 lb), last menstrual period 12/22/2008, SpO2 93 %. Lab Results Component Value Date HGB 9.9 08/17/2017 No results found for: INR I/O last 3 completed shifts: In: 1400 [P.O.:1400] Out: 800 [Urine:800] Distal extremity CMSI bilaterally. Calves are negative bilaterally, both soft and nontender. The dressing is C/D/I. A: Ms. Bonilla is doing well status post Procedure(s): ARTHROPLASTY KNEE. P: Continue physical therapy. Continue DVT pphx with ASA due to high mobility and low risk factors for DVT. Anticipate discharge to home this morning after AM PT. Nadine Erickson PA-C [phone] Abel Aviles MD - 08/17/2017 12:32 PM CDT [facility] Hospitalist Progress Note Assessment & Plan Gloria Bonilla is a 61 year old female who was admitted on 08/15/2017. For an elective TKA Problem 1: Osteoarthritis of the knee - s/p TKA - a bit unstable on her feet - Orthopedic team says home tomorrow. Problem 2: Essential tremor in her left had - Treated with Propranolol - - Problem 3: Anxiety, on Venlafaxine - doing well - 4: Mild acute blood loss anemia, stable - other labs are ok # Pain Assessment: Current Pain Score 08/17/2017 Patient currently in pain? yes Pain score (0-10) 6 Pain location Knee Pain descriptors Aching - Gloria is experiencing pain due to surgery and managed by the Orthopedic team. Pain management was not discussed due to Orthopedist taking care of that. DVT Prophylaxis: Enoxaparin (Lovenox) SQ Code Status: Full Code Disposition: Expected discharge in 1 days once ok with Ortho. Abel Aviles MD Interval History She has knee pain but not worse than the preop pain. Other joints are ok. No head, chest or abdominal pains. No dyspnea, nausea, vomiting, or light headed. No BM yet, voiding ok -Data reviewed today: I reviewed all new labs and imaging results over the last 24 hours. I personally reviewed no images or EKG's today. Physical Exam Temp: 98.1 ??F (36.7 ??C) Temp src: Oral BP: 124/58 Heart Rate: 74 Resp: 16 SpO2: 90 % O2 Device: None (Room air) Vitals: 07/25/17 0913 08/11/17 1106 08/15/17 0645 Weight: 104.3 kg (230 lb) 110.4 kg (243 lb 6 oz) 110.7 kg (244 lb) Vital Signs with Ranges Temp: [98.1 ??F (36.7 ??C)-98.8 ??F (37.1 ??C)] 98.1 ??F (36.7 ??C) Heart Rate: [73-79] 74 Resp: [16-18] 16 BP: (117-161)/(49-69) 124/58 SpO2: [90 %-100 %] 90 % I/O last 3 completed shifts: In: 1000 [P.O.:1000] Out: 1700 [Urine:1700] Constitutional: Alert, smiling Respiratory: Clear to A&P Cardiovascular: Regular rhythm, normal S1 and S2, no murmurs or S3, no pitting edema GI: normal bowel sounds, not tender Skin/Integumen: some stasis changes in the legs and ankles Other: Medications ??? lactated ringers 100 mL/hr at 08/16/17 0650 ??? acetaminophen 975 mg Oral Q8H ??? aspirin 325 mg Oral BID ??? celecoxib 400 mg Oral Daily ??? ferrous gluconate 324 mg Oral Daily ??? primidone (MYSOLINE) half-tab 50 mg 50 mg Oral QAM ??? propranolol 120 mg Oral Daily ??? senna-docusate 1 tablet Oral BID Or ??? senna-docusate 2 tablet Oral BID ??? sodium chloride (PF) 3 mL Intracatheter Q8H ??? venlafaxine 225 mg Oral Daily Data Recent Labs Lab 08/17/17 0655 08/16/17 0632 HGB 9.9* 9.9* NA 139 -- POTASSIUM 4.4 -- CHLORIDE 105 -- CO2 29 -- BUN 11 -- CR 0.59 -- ANIONGAP 5 -- RUBIA 8.6 -- GLC 157* -- Imaging: No results found for this or any previous visit (from the past 24 hour(s)). Nadine Erickson PA-C - 08/17/2017 6:43 AM CDT Orthopedic Surgery 08/17/2017 POD 2 S: Patient voices no unexpected ortho complaints today. Denies chest pain or shortness of breath. Feels getting better but anxious to go home. O: Blood pressure 117/49, pulse 73, temperature 98.8 ??F (37.1 ??C), temperature source Oral, resp. rate 16, height 1.753 m (5' 9), weight 110.7 kg (244 lb), last menstrual period 12/22/2008, SpO2 91 %. Lab Results Component Value Date HGB 9.9 08/16/2017 No results found for: INR I/O last 3 completed shifts: In: 800 [P.O.:800] Out: 3100 [Urine:3100] Distal extremity CMSI bilaterally. Calves are negative bilaterally, both soft and nontender. The dressing is C/D/I. A: Ms. Bonilla is doing well status post Procedure(s): ARTHROPLASTY KNEE. P: Continue physical therapy. Continue DVT pphx with ASA due to high mobility and low risk factors for DVT. Anticipate discharge to home tomorrow depending on how therapy and pain control go today. Nadine Erickson PA-C [phone] Francisca Coreas - 08/16/2017 3:33 PM CDT 08/16/17 1300 Quick Adds Type of Visit Initial Occupational Therapy Evaluation Living Environment Lives With spouse Living Arrangements house Home Accessibility stairs within home (walk in shower ) Living Environment Comment Pt currently lives with spouse in a multiple level home; all necessities are on the main floor that the pt would need upon discharge. Pt reports spouse to be very supportive and available during the day to assist with I/ADL activities as needed. 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 Functional Level Prior Ambulation 0-->independent Transferring 0-->independent Toileting 0-->independent Bathing 0-->independent Dressing 0-->independent Eating 0-->independent Communication 0-->understands/communicates without difficulty Swallowing 0-->swallows foods/liquids without difficulty Cognition 0 - no cognition issues reported Fall history within last six months no Which of the above functional risks had a recent onset or change? 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 Prior to admission pt was I in all I/ADL cares and has modified work schedule around surgery. Pt reports a supportive spouse to assist in all cares. Signs of anxiety did arrise during session regarding fear of transferring on/off toilet and within shower. Spouse was reassuring and pt was receptive to information provided and AE available. Weight-Bearing Status - LLE weight-bearing as tolerated Weight-Bearing Status - RLE full weight-bearing General Info Comments Pt was anxious during practice transfers on/off toilet due to fear. Pt reported feeling unsteady and insecure using LLE. Cognitive Status Examination Orientation orientation to person, place and time Level of Consciousness alert Able to Follow Commands WNL/WFL Personal Safety (Cognitive) WNL/WFL Memory intact Attention No deficits were identified Organization/Problem Solving No deficits were identified Executive Function No deficits were identified Cognitive Comment No deficits identified during initial evaluation Visual Perception Visual Perception Wears glasses Pain Assessment Patient Currently in Pain Yes, see Vital Sign flowsheet (not at rest ) Posture Posture not impaired Coordination Upper Extremity Coordination No deficits were identified Transfer Skill: Sit to Stand Level of [place]: Sit/Stand stand-by assist Physical Assist/Nonphysical Assist: Sit/Stand supervision Transfer Skill: Sit to Stand weight-bearing as tolerated (with LLE ) Assistive Device for Transfer: Sit/Stand rolling walker Transfer Skill: Toilet Transfer Level of [place]: Toilet contact guard Physical Assist/Nonphysical Assist: Toilet supervision;nonverbal cues (demo/gestures) (cues for hand placement and kicking affected leg out) Weight-Bearing Restrictions: Toilet weight-bearing as tolerated (through LLE ) Assistive Device rolling walker Toilet Transfer Skill Comments toilet transfer was challenging for client due to fear Tub/Shower Transfer Tub/Shower Transfer Comments Walk in shower doesn't have a lip boundary, so tranferring into shower wasn't addressed beyond discussing adding grab bars for pt security Balance Balance Quick Add No deficits identified Balance Comments Impaired post-op; steady with a walker Upper Body Dressing Level of [place]: Dress Upper Body independent Physical Assist/Nonphysical Assist: Dress Upper Body supervision Toileting Level of [place]: Toilet contact guard Physical Assist/Nonphysical Assist: Toilet 1 person assist Assistive Device rolling walker;other (see comments) (vanity ) Grooming Level of [place]: Grooming independent Physical Assist/Nonphysical Assist: Grooming supervision Eating/Self Feeding Level of [place]: Eating independent Physical Assist/Nonphysical Assist: Eating supervision Instrumental Activities of Daily Living (IADL) Previous Responsibilities meal prep;housekeeping;laundry;shopping;finances;driving;work IADL Comments Pt was I prior to admission Activities of Daily Living Analysis Impairments Contributing to Impaired Activities of Daily Living fear and anxiety;strength decreased;pain General Therapy Interventions Planned Therapy Interventions ADL retraining;IADL retraining;progressive activity/exercise Clinical Impression Criteria for Skilled Therapeutic Interventions Met yes, treatment indicated OT Diagnosis I/ADL retraining Influenced by the following impairments fear, anxiety, decreased activity tolerance Assessment of Occupational Performance 5 or more Performance Deficits Identified Performance Deficits Dressing, toileting, showering, meal prep, community mobility, work,home maintenance/management Clinical Decision Making (Complexity) Low complexity Therapy Frequency daily Predicted Duration of Therapy Intervention (days/wks) 2 days Anticipated Equipment Needs at Discharge resident advisor Anticipated Discharge Disposition Home with Assist Risks and Benefits of Treatment have been explained. Yes Patient, Family & other staff in agreement with plan of care Yes [facility] TM 6 Clicks ?? 2016, Trustees of [facility], under license to [employer]. All rights reserved. 6 Clicks Short Forms Daily Activity Inpatient Short Form [facility]??? 6 Clicks Daily Activity Inpatient Short Form 1. Putting on and taking off regular lower body clothing? 3 - A Little 2. Bathing (including washing, rinsing, drying)? 3 - A Little 3. Toileting, which includes using toilet, bedpan or urinal? 3 - A Little 4. Putting on and taking off regular upper body clothing? 4 - None 5. Taking care of personal grooming such as brushing teeth? 4 - None 6. Eating meals? 4 - None Daily Activity Raw Score (Score out of 24.Lower scores equate to lower levels of function) 21 Total Evaluation Time Total Evaluation Time (Minutes) 8 Ada Saenz MD - 08/16/2017 2:39 PM CDT [facility] Hospitalist Progress Note Name: Gloria Bonilla Provider: Ada Saenz MD Date of Service: 08/16/2017 Assessment & Plan Summary of Stay: Ms. Gloria Bonilla is a 61-year-old female with past medical history significant for DJD, polymyalgia rheumatica, anxiety and essential tremors was admitted on 08/15/2017 for elective left total knee arthroplasty. ?? Status post left knee arthroplasty --Pain meds PT and anticoagulation per primary team --Tolerated procedure well --Pain is well controlled. ?? History of polymyalgia rheumatica --Postop pain control --Can resume home meds on discharge ?? History of anxiety --Continue venlafaxine ?? History of tremors --Continue propranolol ?? ? HCTZ as outpatient -- pt does not have h/o htn takes it for ? Edema (? Unclear) --On hydrochlorothiazide as needed 1-2 times per week per pt report --will not prescribe as inpatient. -- pt to follow up with pcp DVT Prophylaxis: Defer to primary service Code Status: Full Code Disposition: Expected discharge in 1-2 days to home Interval History Able to tolerate physical therapy offers no complaints. Was walking in hallway when evaluated -Data reviewed today: I reviewed all new labs and imaging reports over the last 24 hours. I personally reviewed no images or EKG's today. Physical Exam Temp: 97.9 ??F (36.6 ??C) Temp src: Oral BP: 133/60 Pulse: 73 Heart Rate: 77 Resp: 12 SpO2: 98 % O2 Device: Nasal cannula Oxygen Delivery: 2 LPM Vitals: 07/25/17 0913 08/11/17 1106 08/15/17 0645 Weight: 104.3 kg (230 lb) 110.4 kg (243 lb 6 oz) 110.7 kg (244 lb) Vital Signs with Ranges Temp: [95.4 ??F (35.2 ??C)-97.9 ??F (36.6 ??C)] 97.9 ??F (36.6 ??C) Pulse: [73-86] 73 Heart Rate: [73-79] 77 Resp: [10-19] 12 BP: (121-143)/(59-76) 133/60 SpO2: [94 %-99 %] 98 % I/O last 3 completed shifts: In: 3100 [P.O.:800; I.V.:2300] Out: 2220 [Urine:2024; Drains:170; Blood:25] GEN: Alert, oriented x 3, appears comfortable, NAD. Medications ??? lactated ringers 100 mL/hr at 08/16/17 0650 ??? acetaminophen 975 mg Oral Q8H ??? aspirin 325 mg Oral BID ??? celecoxib 400 mg Oral Daily ??? ferrous gluconate 324 mg Oral Daily ??? oxyCODONE 10 mg Oral Q12H ??? senna-docusate 1 tablet Oral BID Or ??? senna-docusate 2 tablet Oral BID ??? sodium chloride (PF) 3 mL Intracatheter Q8H Data Recent Labs Lab 08/16/17 0632 HGB 9.9* No results for input(s): NA, POTASSIUM, CHLORIDE, CO2, ANIONGAP, GLC, BUN, CR, GFRESTIMATED, GFRESTBLACK, RUBIA in the last 168 hours. No results found for this or any previous visit (from the past 24 hour(s)). Nadine Erickson PA-C - 08/16/2017 7:00 AM CDT Orthopedic Surgery 08/16/2017 POD 1 S: Patient voices no unexpected ortho complaints today. Denies chest pain or shortness of breath. Doing well. Notably less pain post-op than pre-op. O: Blood pressure 121/68, pulse 73, temperature 95.4 ??F (35.2 ??C), temperature source Oral, resp. rate 12, height 1.753 m (5' 9), weight 110.7 kg (244 lb), last menstrual period 12/22/2008, SpO2 97 %. Lab Results Component Value Date HGB 9.9 08/16/2017 No results found for: INR I/O last 3 completed shifts: In: 3100 [P.O.:800; I.V.:2300] Out: 2220 [Urine:2024; Drains:170; Blood:25] Distal extremity CMSI bilaterally. Calves are negative bilaterally, both soft and nontender. The dressing is C/D/I. A: Ms. Bonilla is doing well status post Procedure(s): ARTHROPLASTY KNEE. P: Continue physical therapy. Continue DVT pphx with ASA due to high mobility and low risk factors for DVT. Anticipate discharge to home tomorrow [place] depending on PT. Nadine Erickson PA-C [phone] T Khadijah Phipps, PT - 08/15/2017 4:41 PM CDT 08/15/17 1636 Quick Adds Type of Visit Initial PT Evaluation Living Environment Lives With spouse Living Arrangements house Number of Stairs to Enter Home 0 Number of Stairs Within Home (has stairs, but does not need to access) Transportation Available family or friend will provide Self-Care Dominant Hand right Usual Activity Tolerance good Current Activity Tolerance fair Regular Exercise no Equipment Currently Used at Home none Activity/Exercise/Self-Care Comment Owns a walker and cane Functional Level Prior Ambulation 0-->independent Transferring 0-->independent Toileting 0-->independent Bathing 0-->independent Dressing 0-->independent Eating 0-->independent Fall history within last six months no Which of the above functional risks had a recent onset or change? ambulation;transferring;toileting;bathing;dressing General Information Onset of Illness/Injury or Date of Surgery - Date 08/15/17 Referring Physician Maninder Chang MD Patient/Family Goals Statement Return home with OPPT Pertinent History of Current Problem (include personal factors and/or comorbidities that impact the POC) Pt is POD0 L TKA. See chart for PMH. Precautions/Limitations fall precautions Weight-Bearing Status - LLE weight-bearing as tolerated Weight-Bearing Status - RLE full weight-bearing General Observations Pt supine upon initiation, agreeable to session. Cognitive Status Examination Orientation orientation to person, place and time Level of Consciousness alert Follows Commands and Answers Questions 100% of the time Personal Safety and Judgment intact Memory intact Pain Assessment Patient Currently in Pain No Integumentary/Edema Integumentary/Edema Comments Pancho wrap intact to L LE Posture Posture Forward head position;Protracted shoulders Range of Motion (ROM) ROM Comment L knee flexion to ~45 degrees, all other LE ROM WNL Strength Strength Comments Able to SLR B LE, Good quad set B Bed Mobility Bed Mobility Comments sit<>supine with SBA Transfer Skills Transfer Comments not assessed Gait Gait Comments not assessed Balance Balance Comments Pt will require B UE support for safe dynamic mobility Sensory Examination Sensory Perception Comments L LE numbness reported by pt, impaired to light touch Coordination Coordination no deficits were identified Muscle Tone Muscle Tone no deficits were identified Modality Interventions Planned Modality Interventions Cryotherapy General Therapy Interventions Planned Therapy Interventions bed mobility training;gait training;ROM;strengthening;stretching;transfer training;home program guidelines;progressive activity/exercise Clinical Impression Criteria for Skilled Therapeutic Intervention yes, treatment indicated PT Diagnosis Impaired functional mobility Influenced by the following impairments Pain, weakness, impaired L LE ROM Functional limitations due to impairments Difficulty with bed mobility, transfers, ambulation Clinical Presentation Stable/Uncomplicated Clinical Presentation Rationale medically stable, progressing as expected post-operatively Clinical Decision Making (Complexity) Low complexity Therapy Frequency` 2 times/day Predicted Duration of Therapy Intervention (days/wks) 3 days Anticipated Discharge Disposition Home with Outpatient Therapy Risk & Benefits of therapy have been explained Yes Patient, Family & other staff in agreement with plan of care Yes [facility] TM 6 Clicks ?? 2016, Trustees of [facility], under license to [employer]. All rights reserved. 6 Clicks Short Forms Basic Mobility Inpatient Short Form [facility]??? 6 Clicks V.2 Basic Mobility Inpatient Short Form 1. Turning from your back to your side while in a flat bed without using bedrails? 4 - None 2. Moving from lying on your back to sitting on the side of a flat bed without using bedrails? 3 - ALittle 3. Moving to and from a bed to a chair (including a wheelchair)? 3 - A Little 4. Standing up from a chair using your arms (e.g., wheelchair, or bedside chair)? 3 - A Little 5. To walk in hospital room? 3 - A Little 6. Climbing 3-5 steps with a railing? 2 - A Lot Basic Mobility Raw Score (Score out of 24.Lower scores equate to lower levels of function) 18 Total Evaluation Time Total Evaluation Time (Minutes) 8 Vianney Flores RN - 08/15/2017 1:50 PM CDT Discussed patient condition with Dr. Hough. RR above 10 when pt awake but drops to 7 when sleeping. Otherwise pt stable, easily arousable, and without complaints. Dr. Hough ok with patient going to floor with current vitals. documented in this encounter Consult Notes Ada Saenz MD - 08/15/2017 3:32 PM CDT Images from the original note were not included. Hospitalist Consultation Gloria Bonilla Date of : 1955 Age: [age] year old Date of Admission: 08/15/2017 Requesting Physician: Dr. Chang Reason for consult: Medical Management Assessment and Plan: Ms. Gloria Bonilla is a 61-year-old female with past medical history significant for DJD, polymyalgia rheumatica, anxiety and essential tremors was admitted on 08/15/2017 for elective left total knee arthroplasty. Status post left knee arthroplasty --Pain meds PT and anticoagulation per primary team --Tolerated procedure well --Pain is well controlled. History of polymyalgia rheumatica --Postop pain control --Can resume home meds on discharge History of anxiety --Continue venlafaxine History of tremors --Continue propranolol History of Present Illness: This patient is a 61 year old female past medical history significant for polymyalgia rheumatica, anxiety and tremors presented for elective left knee arthroplasty. Patient had severe arthritis was affecting her daily living. Pain prior to surgery was about 8-9 x 10 worse with minimal movement. Had associated swelling and was limiting her quality of life. She decided to undergo elective surgery. She has history of prior meniscal injury and repair. She denies any other associated symptoms. Review of all other systems negative Past Medical History: Past Medical History: Diagnosis Date ??? Cervicalgia ??? Complication of anesthesia Wakes up crying uncontrollably ??? DDD (degenerative disc disease), cervical ??? Leiomyoma of uterus, unspecified ??? Tremor, essential Left hand ??? 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 ARTHROSCOPY KNEE RT/LT 04/2005 Left knee meniscus repair ??? HC COLONOSCOPY THRU STOMA, DIAGNOSTIC 03/21/2003 Normal Social History: Social History Substance Use Topics ??? Smoking status: Never Smoker ??? Smokeless tobacco: Never Used ??? Alcohol use Yes Comment: 4-5 glasses of wine a week Family History: Family History Problem Relation Age of Onset ??? C.A.D. Father age 67, first ID in his 20's or 30's (?); had a history of scarlet fever ??? Arthritis Mother age 87, had severe RA ??? CEREBROVASCULAR DISEASE Mother TIA ??? Hypertension Son 2 SONS WITH ENLARGED VENTRICLE - TREATED BY CARDS AT [facility] ??? C.A.D. Brother Born 1940, ID at age 69, also lumbar fusion ??? Family History Negative Sister One at age 2 yo. ??? Family History Negative Brother Born 1941 ??? Thyroid Disease Sister Born 1953, lumbar fusion ??? Thyroid Disease Sister Born 1947, lumbar fusion Allergies: Allergies Allergen Reactions ??? Demerol Nausea and Vomiting ??? Percodan [Oxycodone-Aspirin] Nausea and Vomiting Medications: Prescriptions Prior to Admission Medication Sig Dispense Refill Last Dose ??? ACETAMINOPHEN PO Take 650 mg by mouth every 6 hours as needed for pain 08/14/2017 at Unknown time ??? ASPIRIN PO Take 81 mg by mouth daily 08/08/2017 ??? B Complex-C (SUPER B COMPLEX PO) Take 1 tablet by mouth daily 08/14/2017 at Unknown time ??? Calcium Carbonate (CALCIUM 600 PO) Take 1 tablet by mouth daily 08/14/2017 at Unknown time ??? DiphenhydrAMINE HCl (BENADRYL PO) Take 50 mg by mouth nightly as needed 08/14/2017 at Unknown time ??? MULTIPLE VITAMINS/IRON PO Take 1 tablet by mouth daily 08/14/2017 at Unknown time ??? mupirocin (BACTROBAN) 2 % nasal ointment Apply into each nare 2 times daily Apply small amount in each nare 2 times a day for 7 days prior to surgery 08/14/2017 at Unknown time ??? PRIMIDONE PO Take 50 mg by mouth every morning 08/14/2017 at Unknown time ??? propranolol (INDERAL LA) 120 MG 24 hr capsule Take 120 mg by mouth daily 08/14/2017 at Unknown time ??? triamterene-hydrochlorothiazide (MAXZIDE-25) 37.5-25 MG per tablet Take 1 tablet by mouth daily as needed. 90 tablet 3 08/13/2017 at Unknown time ??? venlafaxine (EFFEXOR-ER) 150 MG TB24 24 hr tablet Take 150 mg by mouth daily (with breakfast) With 75 mg to total 225 mg. 08/14/2017 at Unknown time ??? venlafaxine (EFFEXOR-XR) 75 MG 24 hr capsule Take 1 capsule by mouth daily. (Patient taking differently: Take 75 mg by mouth daily With a 150 mg dose to total 225mg.) 90 capsule 1 08/14/2017 at Unknown time ??? VITAMIN D, CHOLECALCIFEROL, PO Take 2,000 Units by mouth daily 08/14/2017 at Unknown time Review of Systems: A comprehensive greater than 10 system review of systems was carried out. Pertinent positives and negatives are noted above. Otherwise negative for contributory info. Physical Exam: Vitals were reviewed Blood pressure 132/66, pulse 78, temperature 95.8 ??F (35.4 ??C), temperature source Oral, resp. rate 12, height 1.753 m (5' 9), weight 110.7 kg (244 lb), last menstrual period 12/22/2008, SpO2 98 %. Exam: GENERAL: Comfortable. PSYCH: pleasant, oriented, No acute distress. EYES: PERRLA, Normal conjunctiva. HEART: Normal S1, S2 with no edema. LUNGS: Clear to auscultation, normal Respiratory effort. ABDOMEN: Soft, no hepatosplenomegaly, normal bowel sounds. SKIN: Dry to touch, No rash. Neuro: Non focal with normal motor power, sensation, CN's and Reflexes. Extremities: Status post left knee arthroplasty knee covered in Pancho wrap Data: Past 24 hours labs, studies, and imaging were reviewed. All laboratory data reviewed All laboratory and imaging data in the past 24 hours reviewed documented in this encounter Miscellaneous Notes Plan of Care - Ayesha Ramon, FREELANCE DESIGNER - 08/18/2017 9:37 AM CDT Problem: Patient Care Overview Goal: Plan of Care/Patient Progress Review Chief Engineer'S Helper PT Patient plan for discharge: home with spouse, OP PT Current status:Pt amb 230' with ww indep with step thru gait pattern. Goal met Pt performed 4 steps with 1 rail and SEC with supervision. Pt is indep with all transfers. Goal met Barriers to return to prior living situation: none anticipated Recommendations for discharge: home with spouse, HEP, OP PT Rationale for recommendations: Anticipate patient will progress well given PLOF and current functional status. Will benefit from ongoing skilled PT intervention to improve mobility status prior to returning home. PT - Pt discharging to home today with spouse with all goals met. Pt has her own wheeled walker. Please refer to discharge summary. Entered by: Ayesha Ramon 08/18/2017 9:37 AM Associated attestation - Khadijah Phipps PT - 08/18/2017 9:45 AM CDT Physical Therapy Discharge Summary Reason for therapy discharge: All goals and outcomes met, no further needs identified. Progress towards therapy goal(s). See goals on Care Plan in [facility] electronic health record for goal details. Goals met Therapy recommendation(s): Continued therapy is recommended. Rationale/Recommendations: OPPT to maximize outcomes. Note: Pt not seen by documenting PT on this date. Information obtained from chart review and discussion with FREELANCE DESIGNER. Plan of Care - Judy Bazan RN - 08/18/2017 5:44 AM CDT Problem: Patient Care Overview Goal: Plan of Care/Patient Progress Review Outcome: Improving Vitals: VSS O2: room air LOC:a/o x 4 Pain: 05/21 Only took scheduled Tylenol for pain Ambulation: SBA with walker Cardiac: WDL Lungs:clear GI:conspitation : voiding well Skin:WDL ex Dressings: clean, dry, intact Lines/Drains: none Plan: d/c home today Plan of Care - Nubia Owens RN - 08/17/2017 8:52 PM CDT Problem: Patient Care Overview Goal: Plan of Care/Patient Progress Review Outcome: Improving Pt A&O, VSS. Transfers with SBA and walker/gait belt. CMS slight numbness distal to incision andbaseline numbness to bottom R foot. Lungs clear, BS hypoactive. MOM given for constipation this shift. Voiding adequate amounts. Dressing CDI. Plan is to discharge home tomorrow. Plan of Care - Francisca Coreas - 08/17/2017 4:43 PM CDT Problem: Patient Care Overview Goal: Plan of Care/Patient Progress Review Chief Engineer'S Helper OT Patient plan for discharge: Home with Assist Current status: Pt transferred EOB I, and was SBA with fWW sit <> stand from EOB. Pt demonstrated I in completing LB dressing; donning/doffing socks and pants. Pt walked to the toilet with SBA and fWW; transferred on/off toilet with SBA, fWW, and grab bars. Pt tolerated standing at the sink with SBA and fWW. Ptwas SBA with fWW walking to chair and transferred safely with SBA into the chair. Pt was receptive to suggestions and asked clarification questions through out session regarding safe mobility with fWW,using AE, and bed mobility at home. Barriers to return to prior living situation: pain, fear and anxiety Recommendations for discharge: Home with assist as needed for I/ADL cares (dressing, showering, mealprep, corporate quality engineer) Rationale for recommendations: Pt demonstrates carry over from previous sessions and reports feelingmore confident in her mobility. Pt reports having a supportive spouse who is retired and can be present to assist with I/ADL cares as needed. Entered by: Francisca Coreas 08/17/2017 3:05 PM Occupational Therapy Discharge Summary Reason for therapy discharge: All goals and outcomes met, no further needs identified. Progress towards therapy goal(s). See goals on Care Plan in [facility] electronic health record for goal details. Goals met Therapy recommendation(s): No further therapy is recommended. Plan of Care - Patricia Tobias RN - 08/17/2017 1:58 PM CDT Problem: Patient Care Overview Goal: Plan of Care/Patient Progress Review Outcome: Improving Day RN VS monitored, up w/SBA and ww, drsg w/scant dried drainage, CMS+ ex some numbness to L LE, trace edema LE's, Tylenol/Celebrex/Oxycodone for pain, voiding, hypo BS, flatus+, pt c/o feeling uncomfortableand constipated, Senokot given, encouraged fluids/ambulation/fiber rich food, paged hospitalist for a dditional bowel meds, home tomorrow, will cont to monitor. Plan of Care - Ayesha Ramon PTA - 08/17/2017 10:13 AM CDT Problem: Patient Care Overview Goal: Plan of Care/Patient Progress Review Chief Engineer'S Helper PT Patient plan for discharge: home with spouse, OP PT Current status:Pt amb 230' with ww with supervision with L knee hyper extending x 2. Pt performed 8 steps with both rails with CGA with L knee hyperextending x 1. Performed withCGA. Pt transfer supine to/from sit with SBA, sit to/from stand with supervision and bed to/from chair with ww with SBA. P.m. Session - Pt amb 225' with ww with supervision to indep without knee buckling. Pt performed 4 steps with 1 rail and SEC and CGA - SBA. Pt is indep with sit to/from stand and sit to/from supine. Pttransfers bed to / from chair with ww with supervision to indep. Barriers to return to prior living situation: none anticipated Recommendations for discharge: home with spouse, HEP, OP PT Rationale for recommendations: Anticipate patient will progress well given PLOF and current functional status. Will benefit from ongoing skilled PT intervention to improve mobility status prior to returning home. Entered by: Ayesha Ramon 08/17/2017 10:13 AM Plan of Care - Sugar Bella RN - 08/17/2017 6:32 AM CDT Problem: Patient Care Overview Goal: Plan of Care/Patient Progress Review Outcome: Improving A&O x4. A x 1 with walker to bathroom. RA. BS hypoactive, passing gas, last BM 08/14. Regular diet. Voiding w/o difficulty. CMS intact ex: some numbness LLE on right side of knee that she has had since surgery. No IV access, pt accidentally pulled it out this morning while itching her leg - IV access no longer indicated. Left knee dressing C/D/I. Pain managed well with PRN oxycodone and scheduled Tylenol and oxycontin. No other concerns this shift. Plan of Care - Jayashree Qureshi RN - 08/16/2017 10:05 PM CDT Problem: Patient Care Overview Goal: Plan of Care/Patient Progress Review Outcome: Improving Vital signs stable. Lungs clear, encouraged inspirometer use, ambulated with walker and sba of 1. Bowel sounds hypoactive, passing flatus, voiding. CMS intact to lower extremities, mild edema to ankles. Dressing Intact to left knee. Hgb 9.9, asymptomatic. Pain controlled with tylenol, oxycodone, oxycontin. Post op plan of care reviewed with pt and spouse. Plan of Care - Francisca Coreas - 08/16/2017 3:44 PM CDT Problem: Patient Care Overview Goal: Plan of Care/Patient Progress Review Chief Engineer'S Helper OT Patient plan for discharge: Home with assist Current status: Pt was sitting up in the chair upon arrival. Demonstrated I transfer with fWW in sit<>stand. Pt was I with fWW in walking in hallway to satellite room. Pt needed CGA when transferring on/off toilet x2 with raised seat and fWW; did practice with vanity 1x. Pt walked back to room with SBA and fWW;totaling ~160'. Pt demonstrated safe transfer I in chair with fWW. Pt declined practice with donning/doffing socks. Barriers to return to prior living situation: Pain, fear and anxiety, and decreased strength post-op Recommendations for discharge: Home with assist as needed for I/ADLs (dressing and showering) Rationale for recommendations: Pt demonstrates ability to move well during session, but did show signs of anxiety during transfers. Pt reports supportive spouse to aid in cares as needed and would benefit from this additional support. Entered by: Francisca Coreas 08/16/2017 3:40 PM Plan of Care - Britta Calvert RN - 08/16/2017 11:37 AM CDT Problem: Patient Care Overview Goal: Plan of Care/Patient Progress Review Outcome: Improving Patient is assist of one. RA. VSS. Voiding adequate amounts. HV is out. Has Oxycontin and Oxycodone for pain. Regular diet Plan of Care - Rakesh Palumbo, PT - 08/16/2017 11:04 AM CDT Problem: Patient Care Overview Goal: Plan of Care/Patient Progress Review Chief Engineer'S Helper PT Patient plan for discharge: home with spouse, OP PT Current status: Progressing well, amb x 200ft with FWW and CGA, CGA/min A x 1 sit <> stand transfers. No KI needed. Pain rated 3-4/10 with mobility. AAROM L knee currently 7-80 deg. Barriers to return to prior living situation: none anticipated Recommendations for discharge: home with spouse, HEP, OP PT Rationale for recommendations: Anticipate patient will progress well given PLOF and current functional status. Will benefit from ongoing skilled PT intervention to improve mobility status prior to returning home. Entered by: Rakesh Palumbo 08/16/2017 11:03 AM Plan of Care - Sugar Bella RN - 08/16/2017 7:07 AM CDT Problem: Patient Care Overview Goal: Plan of Care/Patient Progress Review Outcome: Improving A&O x4. Up with A x 2 and walker, did not get up overnight. On 2 L O2 with capnography overnight. BS hypoactive, passing gas, last BM 08/14. Garcia cath and hemovac removed this morning per MD order. Tolerating full liquids, advanced to regular diet. CMS intact. Saline locked this morning. Left leg pancho wrapped, C/D/I. Pain managed with PRN oxycodone and scheduled Tylenol and oxycontin. Plan of Care - Cammy Lozano RN - 08/16/2017 12:02 AM CDT Problem: Patient Care Overview Goal: Plan of Care/Patient Progress Review Outcome: Improving Pain well controlled with po meds. Up with assist of 1-2 stood at bedside & marched in place. Noc/o nausea. brenda full liquid diet. Good u/o per garcia. Block in place with numbness in LLE otherwise cms intact. drsg CD&I. Plan of Care - Khadijah Phipps, PT - 08/15/2017 5:00 PM CDT Problem: Patient Care Overview Goal: Plan of Care/Patient Progress Review PT: Orders received. PT evaluation completed and treatment initiated. Pt is POD0 L TKA. Pt reports living in a house with 0 steps to enter, and with main level living. Pt's spouse will be available to assist as needed after discharge. Chief Engineer'S Helper PT Patient plan for discharge: Home with OPPT Current status: Pt completes supine LE strengthening, able to complete SLR therefore no KI needed with mobility. Pt completes sit<>supine with SBA, however upon sitting it is noted that the pt's catheter bag was leaking. Pt returns to supine and RN called to room to address catheter. Barriers to return to prior living situation: None anticipated. Recommendations for discharge: Home with OPPT Rationale for recommendations: Anticipate that with continued IPPT the pt will be able to complete all basic mobility skills required for safe discharge home. Rec OPPT to maximize TKA outcomes. Entered by: Khadijah Phipps 08/15/2017 4:58 PM Plan of Care - Jodie Saenz RN - 08/15/2017 3:26 PM CDT Problem: Patient Care Overview Goal: Plan of Care/Patient Progress Review Pt arrived to floor to room 628 at 1420. Settled, oriented to room, call light, incentive spirometer, plan of care reviewed. Pancho wrap CDI. hemovac draining. Garcia in place. Skin intact ex incision. LS clear. Lives in house with in [place], no stairs. Clear liquid. Will continue to monitor. Op Note - Maninder Chang MD - 08/15/2017 10:08 AM CDT Procedure Date: 08/15/2017 DATE OF PROCEDURE: 08/15/2017 PREOPERATIVE DIAGNOSIS: Osteoarthritis, left knee (valgus). POSTOPERATIVE DIAGNOSIS: Osteoarthritis, left knee (valgus). PROCEDURE PERFORMED: Left total knee arthroplasty. SURGEON: Maninder Chang MD GEAR GRINDING MACHINE OPERATOR: Nadine Erickson PA-C ANESTHESIA: General with adductor canal block. ESTIMATED BLOOD LOSS: 25 mL. TOURNIQUET TIME: Approximately 70 minutes. COMPLICATIONS: None. DESCRIPTION OF PROCEDURE: The patient was taken to the operating room where after successful administration of general anesthetic, antibiotic prophylaxis, tranexamic acid, adductor canal block and sterile prep and drape, the leg was exsanguinated and an anterior incision was made followed by a medial arthrotomy and a minimal medial release due to the valgus knee alignment. An intramedullary 5-degree guide was used with anterior referencing at 7 degrees of external rotation, which did appear to matchthe epicondylar axis and a box cut was made for PCL substitution. Retractors were carefully placed about the proximal tibia and a cut was made perpendicular to the mechanical axis of the tibia eventually removing a total of approximately 4 mm from the more deficient lateral side. Tibial rotation was at the junction of the medial and middle thirds of the tubercle. 10 mm was resected from the undersurface of a 25 mm patella. After posterior osteophytes were removed under direct vision, capsular injection was performed. The neurovascular structures were carefully protected throughout the case. I released the posterolateral capsule under direct vision, protecting the posterior structures. A partial ITband release was also performed. This created rectangular flexion and extension gaps. There was fullextension and easy gravity flexion with no laxity in flexion. There was grade 1+ laxity at 30 and 60degrees on the medial side that was not present in extension. After copious lavage and drying, Simplex cementing is performed for a Magno NexGen cruciate, substituting size E femur, size 5 tibia, 10 mm polyethylene insert, and a 35 mm patellar button. Range of motion, balance and tracking were good, as noted above. Further antibiotic and Betadine irrigation wasperformed followed by layered closure over a deep drain. There were no complications. MANINDER CHANG MD MT: CC Name: GLORIA BONILLA MRN: [id number] Account: [id number] : 1955 Procedure Date: 08/15/2017 Document: [id number] Brief Op Note - Maninder Chang MD - 08/15/2017 6:54 AM CDT [facility] Brief Operative Note Pre-operative diagnosis: left knee degenerative joint disease Post-operative diagnosis same Procedure: Procedure(s): left total knee arthroplasty spinal with adductor canal block - Wound Class: I-Clean Surgeon(s): Surgeon(s) and Role: * Maninder Chang MD - Primary Estimated blood loss: * No values recorded between 08/15/2017 12:00 AM and 08/15/2017 6:53 AM * Specimens: * No specimens in log * Findings: No anticipated complications Pharmacy-Admission Medication History - Annalisa Tyler [facility] - 08/11/2017 1:23 PM CDT Pharmacy reviewed prior to admission med list from pre-admitting rn, Diogo Rodríguez. Phoned [facility] and confirmed dose formulation on propranolol. Pt is on ER 120mg daily-updated FREELANCE DESIGNER med list. Prior to Admission medications Medication Sig Last Dose Taking? Auth Provider ACETAMINOPHEN PO Take 650 mg by mouth every 6 hours as needed for pain Yes Reported, Patient ASPIRIN PO Take 81 mg by mouth daily Yes Reported, Patient B Complex-C (SUPER B COMPLEX PO) Take 1 tablet by mouth daily Yes Reported, Patient Calcium Carbonate (CALCIUM 600 PO) Take 1 tablet by mouth daily Yes Reported, Patient DiphenhydrAMINE HCl (BENADRYL PO) Take 50 mg by mouth nightly as needed Yes Reported, Patient MULTIPLE VITAMINS/IRON PO Take 1 tablet by mouth daily Yes Reported, Patient mupirocin (BACTROBAN) 2 % nasal ointment Apply into each nare 2 times daily Apply small amount in each nare 2 times a day for 7 days prior to surgery Yes Reported, Patient PRIMIDONE PO Take 50 mg by mouth At Bedtime Yes Reported, Patient propranolol (INDERAL LA) 120 MG 24 hr capsule Take 120 mg by mouth daily Yes Unknown, Entered By History triamterene-hydrochlorothiazide (MAXZIDE-25) 37.5-25 MG per tablet Take 1 tablet by mouth daily as needed. Yes Vincenzo Grimaldo MD venlafaxine (EFFEXOR-ER) 150 MG TB24 24 hr tablet Take 150 mg by mouth daily (with breakfast) With 75 mg to total 225 mg. Yes Reported, Patient venlafaxine (EFFEXOR-XR) 75 MG 24 hr capsule Take 1 capsule by mouth daily. Patient taking differently: Take 75 mg by mouth daily With a 150 mg dose to total 225mg. Yes Vincenzo Grimaldo MD VITAMIN D, CHOLECALCIFEROL, PO Take 2,000 Units by mouth daily Yes Reported, Patient Plan of Care - Janae Rodríguez RN - 07/29/2017 11:29 AM CDT Pt called and confirmed that she did receive the message about the positive MSSA nasal screen. Had no questions. Provider Notification - Megan Lind RN - 07/28/2017 9:11 AM CDT Nasal screen results MRSA neg, MSSA positive. Mupiricin ointment called into patients pharmacy of choice, patient notified of when to start ointment and extra showering. Dr. Chang office informed of above. documented in this encounter Plan of Treatment Scheduled Referrals Name Type Priority Associated Diagnoses Order S chedule Physical Therapy Referral Routine Status post total left O rdered: 08/17/2017 Referral knee replacement documented as of this encounter Procedures Procedure Name Priority Date/Time Associated Diagnosis Comme nts HEMOGLOBIN Routine 08/17/2017 6:55 AM Results f or this CDT procedure are i n the results section. BASIC METABOLIC Routine 08/17/2017 6:55 AM Result s for this PANEL CDT procedure are i n the results section. HEMOGLOBIN Routine 08/16/2017 6:32 AM Results f or this CDT procedure are i n the results section. XR KNEE PORT LEFT STAT 08/15/2017 11:06 Result s for this 1/2 VIEWS AM CDT procedure are i n the results section. ARTHROPLASTY, KNEE, 08/15/2017 8:26 AM left knee TOTAL CDT degenerative joint disease Special Needs # H&P. PETIT to scr een on 07/27 @0900. EKG CARDIAC - HIM SCAN 08/05/2017 12:00 AM CDT documented in this encounter Results (ABNORMAL) Basic metabolic panel (08/17/2017 6:55 AM CDT) P athologist Signature Sodium 139 133 - 144 08/17/2017 [facility] mmol/L 7:35 AM [facility] Potassium 4.4 3.4 - 5.3 08/17/2017 [facility] mmol/L 7:35 AM [facility] Chloride 105 94 - 109 08/17/2017 [facility] mmol/L 7:35 AM [facility] Carbon Dioxide 29 20 - 32 08/17/2017 [facility] mmol/L 7:35 AM [facility] Anion Gap 5 3 - 14 08/17/2017 [facility] mmol/L 7:35 AM [facility] Glucose 157 (H) 70 - 99 08/17/2017 [facility] mg/dL 7:35 AM [facility] Urea Nitrogen 11 7 - 30 08/17/2017 [facility] mg/dL 7:35 AM [facility] Creatinine 0.59 0.52 - 08/17/2017 [facility] 1.04 mg/dL 7:35 AM [facility] GFR Estimate >90 >60 08/17/2017 [facility] mL/min/1.7 7:[address] Comment: Non GFR Calc GFR Estimate If >90 >60 mL/min/1.7m2 08/17/2017 7:35 [facility] Comment: GFR Calc Calcium 8.6 8.5 - 10.1 mg/dL 08/17/2017 7:[address] [facility] Specimen Anatomical Collection Method Collection Time Receive d Time (Source) Location / / Volume Laterality Blood specimen 08/17/2017 6:55 AM 018 6:56 (specimen) CDT AM CDT Ada Saenz MD LAB - BLOOD ORDERABLES Performing Organization Address City/[facility]/ZIP [facility] Phon e Number [facility] [address] [place] [address] [place] [address] [address] [place], [place] [address], [facility] [phone] (ABNORMAL) Hemoglobin (08/17/2017 6:55 AM CDT) P athologist Signature Hemoglobin 9.9 (L) 11.7 - 15.7 08/17/2017 [facility] g/dL 7:11 AM [facility] Specimen Anatomical Collection Method Collection Time Receive d Time (Source) Location / / Volume Laterality Blood specimen 08/17/2017 6:55 AM 018 6:56 (specimen) CDT AM CDT Maninder Chang MD LAB - BLOOD ORDERABLES Performing Organization Address City/State/ZIP Code Phon e Number [facility] [address], [place] [address] [facility] [address] [id number], [facility] [phone] (ABNORMAL) Hemoglobin (08/16/2017 6:32 AM CDT) P athologist Signature Hemoglobin 9.9 (L) 11.7 - 15.7 08/16/2017 [facility] g/dL 7:00 AM [facility] Specimen Anatomical Collection Method Collection Time Receive d Time (Source) Location / / Volume Laterality Blood specimen 08/16/2017 6:32 AM 018 6:33 (specimen) CDT AM CDT Maninder Chang MD LAB - BLOOD ORDERABLES Performing Organization Address City/State/ZIP Code Phon e Number M [facility] [address], [place] [address] [facility] [address] [place], [place] [address] [facility] [phone] XR Knee Port Left 1/2 Views (08/15/2017 11:06 AM CDT) Anatomical Region Laterality Modality Left Knee Left Digital Radiography Specimen (Source) Anatomical Location Collection Method / Collectio n Time Received Time / Laterality Volume Impressions 08/15/2017 4:51 PM CDT IMPRESSION: Total left knee arthroplasty with components in the expected locations. Postoperative skin s taples, surgical drain and soft tissue and intra-articular air are noted. JARRED TAPIA MD Narrative 08/15/2017 4:51 PM CDT LEFT KNEE PORTABLE ONE TO TWO VIEWS ??08/15/2017 11:06 AM HISTORY: Knee replacement. COMPARISON: None. Procedure Note Jarred Tapia MD - 08/15/2017Fo rmatting of this note might be different from the original. LEFT KNEE PORTABLE ONE TO TWO VIEWS 2017 11:06 AM HISTORY: Knee replacement. COMPARISON: None. IMPRESSION: Total left knee arthroplasty with components in the expected locations. Postoperative skin s taples, surgical drain and soft tissue and intra-articular air are noted. JARRED TAPIA MD Maninder Chang MD IMG DIAGNOSTIC IMAGING ORDER [facility] EKG CARDIAC - HIM SCAN (08/05/2017 12:00 AM CDT) Specimen (Source) Anatomical Location Collection Method / Collectio n Time Received Time / Laterality Volume 08/05/2017 Narrative This result has an attachment that is no t available. Provider Outside ECG ORDERABLES documented in this encounter Visit Diagnoses Diagnosis Status post total left knee replacement - Primary documented in this encounter Administered Medications Inactive Administered Medications - up to 3 most recent administrations Medication Order MAR Action Action Date Dose Rate Site acetaminophen (TYLENOL) tablet Given 08/18/2017 11:27 AM CDT 975 mg 975 mg 975 mg, Oral, EVERY 8 HOURS, First dose on Tue08/15/17 at 1445, For 3 days, Do not use if patient has an active opioid/acetaminophen combined analgesic product ordered for pain. Maximum acetaminophen dose from all sources = 75 mg/kg/day not to exceed 4 grams/day., Post-procedure Given 08/18/2017 2:10 AM CDT 975 mg Given 08/17/2017 7:33 PM CDT 975 mg aspirin EC tablet 325 mg Given 08/18/2017 8:01 AM CDT 325 mg 325 mg, Oral, 2 TIMES DAILY, First dose on Tue08/15/17 at 2000, Post-procedure Given 08/17/2017 7:33 PM CDT 325 mg Given 08/17/2017 10:21 AM CDT 325 mg ceFAZolin (ANCEF) intermittent infusion 2 g in Given 0 08/16/2017 12:06 AM CDT 2 g 100 mL dextrose PRE-MIX Routine, 2 g, Intravenous, EVERY 8 HOURS, First dose on Tue08/15/17 at 1600, For 2 doses, First post-op dose due 8 hours after intra-op dose, see eMAR. , Indications: Perioperative Pharmacoprophylaxis, Post-procedure Given 08/15/2017 4:04 PM CDT 2 g celecoxib (celeBREX) capsule 400 mg Given 08/15/2017 7:17 AM CDT 400 mg 400 mg, Oral, ONCE, On Tue08/15/17 at 0700, For 1 dose, Pre-procedure celecoxib (celeBREX) capsule 400 mg Given 08/18/2017 8:01 AM CDT 400 mg 400 mg, Oral, DAILY, First dose on Tue08/16/17 at 0800, For 3 days, Post-procedure Given 08/17/2017 10:17 AM CDT 400 mg Given 08/16/2017 7:52 AM CDT 400 mg diphenhydrAMINE (BENADRYL) capsule 25 mg Given 08/17/2017 9:56 PM CDT 25 mg 25 mg, Oral, EVERY 6 HOURS PRN, itching, Starting on Tue08/15/17 at 1437, Caution to be used when administering multiple Central Nervous System (ASSOCIATE DENTIST) depressing meds within a short time frame., Post-procedure Given 08/17/2017 1:09 AM CDT 25 mg diphenhydrAMINE (BENADRYL) injection 25 mg 25 mg, Intravenous, EVERY 6 HOURS PRN, i tching, Only give if patient unable to take PO., Administer over 1-2 Minutes, Starting on Tue at 1437, Caution to be used when administering multiple Central Nervous Syste m (ASSOCIATE DENTIST) depressing meds within a short time frame. For ordered d oses up to 50 mg, give IV Push undiluted. Give each 25mg over a minimum of 1 minut e. Extend in non-emergency, Post-procedure ferrous gluconate (FERGON) tablet 324 mg Given 08/18/2017 8:01 AM CDT 324 mg 324 mg, Oral, DAILY, First dose on Tue08/15/17 at 1445, DO NOT CRUSH. Absorbed best on an empty stomach. If stomach upset occurs, can take with meals., Post-procedure Given 08/17/2017 10:20 AM CDT 324 mg Given 08/16/2017 7:52 AM CDT 324 mg hydrOXYzine (ATARAX) tablet 25 mg Given 08/17/2017 9:56 PM CDT 25 mg 25 mg, Oral, EVERY 6 HOURS PRN, other, adjuvant pain, Starting on Tue08/17/17 at 0648 hydrOXYzine (ATARAX) tablet 50 mg 50 mg, Oral, EVERY 6 HOURS PRN, other, adjuvant pain, Starting on Tue08/17/17 at 0648 lactated ringers infusion New Bag 08/16/2017 6:50 AM CDT 100 mL/hr at 100 mL/hr, Intravenous, CONTINUOUS, Change to saline lock when PO well tolerated., Post-procedure, Starting on Tue08/15/17 at 1445, Until Chel 08/18/17 at 1419 New Bag 08/15/2017 8:32 PM CDT 100 mL/hr lactated ringers infusion New Bag 08/15/2017 1:18 PM CDT 100 mL/hr at 100 mL/hr, Intravenous, CONTINUOUS, Continue until IV catheter is weaned, PACU, Starting on Tue08/15/17 at 1045, Until Tue08/15/17 at 1414 magnesium hydroxide (MILK OF MAGNESIA) Given 08/18/2017 8:00 AM CDT 30 mLs suspension 30 mL 30 mL, Oral, DAILY PRN, constipation, Starting on Tue08/17/17 at 1451, Shake well. Given 08/17/2017 4:30 PM CDT 30 mLs ondansetron (ZOFRAN) injection 4 mg Given 08/16/2017 2:32 AM CDT 4 mg 4 mg, Intravenous, EVERY 6 HOURS PRN, nausea, vomiting, Administer over 2-5 Minutes, Starting on Tue08/15/17 at 1437, This is Step 1 of nausea and vomiting management. If nausea not resolved in 15 minutes, go to Step 2 prochlorperazine (COMPAZINE). Irritant. For ordered doses up to 4 mg, give IV Push undiluted over 2-5 minutes., Post-procedure Given 08/15/2017 6:29 PM CDT 4 mg ondansetron (ZOFRAN) injection 4 mg Given 08/15/2017 10:49 AM CDT 4 mg 4 mg, Intravenous, EVERY 30 MIN PRN, nausea, Administer over 2-5 Minutes, Starting on Tue08/15/17 at 1040, For 2 doses, MAX total dose = 8 mg, including OR dosing. If not resolved in 15 minutes, then go to step 2 [prochlorperazine (COMPAZINE), if ordered]. Irritant. For ordered doses up to 4 mg, give IV Push undiluted over 2-5 minutes., PACU ondansetron (ZOFRAN-ODT) ODT tab 4 mg 4 mg, Oral, EVERY 6 HOURS PRN, nausea, v omiting, Starting on Tue08/15/17 at 1437, This is Step 1 of nausea and vomiting management. If n ausea not resolved in 15 minutes, go to Step 2 prochlorperazine (COMPAZINE). Do not push through foil backing. Peel back foil and gently remove. Place on to ngue immediately. Administration with liquid unnecessary W ith dry hands, peel back foil backing and gently remove tablet; do not push oral d isintegrating tablet through foil backing; administer immediately on tongue and oral disintegrati ng tablet dissolves in seconds; then swallow with saliva; liquid not required ., Post-procedure oxyCODONE (OxyCONTIN) 12 hr tablet 10 mg Given 08/15/2017 7:17 AM CDT 10 mg 10 mg, Oral, ONCE, On Tue08/15/17 at 0700, For 1 dose, DO NOT CRUSH., Pre-procedure oxyCODONE (OxyCONTIN) 12 hr tablet 10 mg Given 08/17/2017 6:37 AM CDT 10 mg 10 mg, Oral, EVERY 12 HOURS, First dose on Tue08/15/17 at 1900, For 4 doses, Hold while on SLITTER CREASER SLOTTER HELPER or regular IV opioid dosing. Start 12 hours after pre-op dose., Post-procedure Given 08/16/2017 7:27 PM CDT 10 mg Given 08/16/2017 6:52 AM CDT 10 mg oxyCODONE IR (ROXICODONE) tablet 5-10 mg Given 08/18/2017 11:41 AM CDT 10 mg 5-10 mg, Oral, EVERY 3 HOURS PRN, other, pain control or improvement in physical function. Hold dose for analgesic side effects., Starting on Tue08/15/17 at 1437, Start with the lowest dose. May adjust dose by 5 mg every 3 hours as needed. Notify provider to assess for uncontrolled pain or analgesic side effects. Hold while on SLITTER CREASER SLOTTER HELPER or with regular IV opioid dosing. Maximum total is 80 mg in 24 hours., Post-procedure Given 08/18/2017 8:01 AM CDT 10 mg Given 08/17/2017 10:50 PM CDT 10 mg primidone (MYSOLINE) half-tab 50 mg Given 08/18/2017 8:01 AM CDT 50 mg 50 mg, Oral, EVERY MORNING, First dose on Tue08/17/17 at 0800 Given 08/17/2017 10:21 AM CDT 50 mg prochlorperazine (COMPAZINE) injection 1 0 mg 10 mg, Intravenous, EVERY 6 HOURS PRN, nausea, vomitin g, Administer over 1-2 Minutes, Starting on Tue08/15/17 at 1437, This is Step 2 of nausea and vomiting management. If nausea not resolved in 15 minutes, give metoclopramide (REGLAN), if ordered (step 3 of nausea and vomiting m anagement) For ordered doses up to 10 mg, give IV Push undiluted. Each 5mg over 1 minute., Post- procedure prochlorperazine (COMPAZINE) injection 1 0 mg Given 08/15/2017 11:17 AM CDT 10 mg 10 mg, Intravenous, EVERY 6 HOURS PRN, nausea, vomiting, Administer over 1-2 Minutes, Starting on Tue08/15/17 at 1040, This is Step 2 of the nausea and vomiting protocol. If nausea not resolved in 15 minutes, give metoclopramide (REGLAN) if ordered (step 3 of nausea and vomiting protocol) For ordered doses up to 10 mg, give IV Push undiluted. Each 5mg over 1 minute., PACU prochlorperazine (COMPAZINE) tablet 10 m g 10 mg, Oral, EVERY 6 HOURS PRN, nausea, vomiting, Starting on Tue08/15/17 at 1437, This is Step 2 of nausea and vomiting management. If n ausea not resolved in 15 minutes, give metoclopramide (REGLAN), i f ordered (step 3 of nausea and vomiting management), Post-procedure propranolol (INDERAL LA) 24 hr capsule 1 20 mg Given 08/18/2017 8:01 AM CDT 120 mg 120 mg, Oral, DAILY, First dose on Tue08/16/17 at 1445, DO NOT CRUSH. Given 08/17/2017 10:22 AM CDT 120 mg Given 08/16/2017 3:08 PM CDT 120 mg senna-docusate (SENOKOT-S;PERICOLACE) Given 08/18/2017 8:01 AM C DT 1 tablet 8.6-50 MG per tablet 1 tablet 1 tablet, Oral, 2 TIMES DAILY, First dose on Tue08/15/17 at 2000, If no bowel movement in 24 hours, increase to 2 tablets PO. Hold for loose stools., Post-procedure Given 08/16/2017 7:52 AM CDT 1 tablet Given 08/15/2017 8:31 PM CDT 1 tablet senna-docusate (SENOKOT-S;PERICOLACE) Given 08/17/2017 7:34 PM C DT 2 tablets 8.6-50 MG per tablet 2 tablet 2 tablet, Oral, 2 TIMES DAILY, First dose on Tue08/15/17 at 2000, Hold for loose stools., Post-procedure Given 08/17/2017 10:20 AM CDT 2 tablets Given 08/16/2017 7:27 PM CDT 2 tablets sodium chloride (PF) 0.9% PF flush 3 mL Given 08/16/2017 4:20 PM CDT 3 mLs 3 mL, Intracatheter, EVERY 8 HOURS, First dose on Tue08/15/17 at 1445, And Q1H PRN, to lock peripheral IV dormant line., Post-procedure venlafaxine (EFFEXOR-ER) 24 hr tablet 22 5 mg Given 08/18/2017 8:01 AM CDT 225 mg 225 mg, Oral, DAILY, First dose on Tue08/16/17 at 1445, DO NOT CRUSH., , Home dose: 150mg + 75mg = 225mg daily Given 08/17/2017 10:20 AM CDT 225 mg Given 08/16/2017 3:09 PM CDT 225 mg documented in this encounter Active and Recently Administered Medications Times are shown in CDT. Scheduled Medication Order 08/16/2017 08/17/2017 08/18/2017 acetaminophen (TYLENOL) tablet 975 mg 0159 (Given - Pr ovider: Sugar Bella RN)1105 (Given - Provider: Britta Calvert RN)1819 (Given - Provider: Daria Alba LPN) 0109 (Given - Provider: Sugar scott RN)1017 (Given - Provider: Patricia Tobias RN)1933 (Given - Provider: Nubia Owens RN) 0210 (Given - Provider: Judy Bazan RN)1127 (Given - Provider: Patricia Tobias RN) 975 mg, Oral, EVERY 8 HOURS, First dose on Tue08/15/17 at 1445, For 3 days, Do not use if patient has an active opioid/acetaminophen combined analgesic product ordered for pain. Maximum acetaminophen dos e from all sources = 75 mg/kg/day not to exceed 4 grams/day., Po st-procedure aspirin EC tablet 325 mg 0752 (Given - Provider: Ele Calvert RN)1927 (Given - Provider: Jayashree Qureshi RN) 1021 (Given - Provider: Patricia Tobias, KIKA)1933 (Given - Provider: Nubia Owens RN) 0801 (Given - Provider: Patricia Tobias RN) 325 mg, Oral, 2 TIMES DAILY, First dose on Tue08/15/17 at 2000, P ost-procedure ceFAZolin (ANCEF) intermittent infusion 2 g in 100 mL dextrose PRE-MIX (COMPLETED) 000 (Given - Provider: Deja Mahmood LPN) 2 g, Intravenous, EVERY 8 HOURS, First d ose on Tue08/15/17 at 1600, For 2 doses, First post-op dose due 8 hours after intra-op dose, see eMAR. , Indications: Perioperative Pharmacoprophylaxis, Post-procedure celecoxib (celeBREX) capsule 400 mg (COMPLETED) 0752 ( Given - Provider: Britta Calvert, RN) 1017 (Given - Provider: Patricia Tobias, KIKA) 0801 (Giv en - Provider: Patricia Tobias RN) 400 mg, Oral, DAILY, First dose on Tue at 0800, For 3 days, Post-procedure ferrous gluconate (FERGON) tablet 324 mg 0752 (Given - Provider: Britta Calvert, KIKA) 1020 (Given - Provider: Patricia Tobias RN) 0801 (Giv en - Provider: Patricia Tobias RN) 324 mg, Oral, DAILY, First dose on Tue at 1445, DO NOT CRUSH. Absorbed best on an empty stomach. If stomach upset occurs, can take with meals., Post-procedure oxyCODONE (OxyCONTIN) 12 hr tablet 10 mg (COMPLETED) 0 652 (Given - Provider: Coty Smith, KIKA)1927 (Given - Provider: Jayashree Qureshi, KIKA) 0637 (Given - Provider: Sugar Bella, KIKA) 10 mg, Oral, EVERY 12 HOURS, First dose on Tue08/15/17 at 1900, For 4 doses, Hold while on SLITTER CREASER SLOTTER HELPER or regular IV opioid dosing. Start 12 hours after pre-op dose., Post-procedure primidone (MYSOLINE) half-tab 50 mg 1021 (Given - Provider: Patricia Tobias, KIKA) 0801 (Given - Provider: Patricia Tobias, KIKA) 50 mg, Oral, EVERY MORNING, First dose on Tue08/17/17 at 0800 propranolol (INDERAL LA) 24 hr capsule 120 mg 1508 (Gi yissel - Provider: Britta Calvert, KIKA) 1022 (Given - Provider: Patricia Tobias, KIKA) 0801 (Giv en - Provider: Patricia Tobias RN) 120 mg, Oral, DAILY, First dose on Tue08/16/17 at 1445, DO NOT CR [facility]. senna-docusate (SENOKOT-S;PERICOLACE) 8. 6-50 MG per tablet 1 tablet(Linked Group 1) 0752 (Given - Provider: Britta Calvert RN)1926 (See Alternative - Provider: Jayashree Qureshi RN) 102 (See Alternative - Provider: Alba Tobias RN)193 (See Alternative - Provider: Nubia Owens RN) 0801 (Given - Provider: Patricia Tobias RN) 1 tablet, Oral, 2 TIMES DAILY, First dos e on Tue08/15/17 at 2000, If no bowel movement in 24 hours, increase to 2 tablets PO. Hold for loose stools., Post-procedure senna-docusate (SENOKOT-S;PERICOLACE) 8. 6-50 MG per tablet 2 tablet(Linked Group 1) 0752 (See Alternative - Provider: Radha Calvert RN)1926 (Given - Provider: Jayashree Qureshi RN) 102 (Given - Provider: Patricia Tobias RN)193 (Given - Provider: Nubia Owens RN) 0801 (See Alternative - Provider: Alba Tobias RN) 2 tablet, Oral, 2 TIMES DAILY, First dos e on Tue08/15/17 at 2000, Hold for loose stools., Post-procedure sodium chloride (PF) 0.9% PF flush 3 mL (CANCELED) 015 9 (Not Given - Provider: Sugar Bella RN - Reason: IV Infusing)0753 (Not Given - Provider: Britta Calvert RN - Reason: IV Infusing)1620 (Given - Provider: Jayashree Qureshi RN) 0111 (Not Given - Provider: Sugar martinez RN - Reason: Loss of IV access)1022 (Not Given - Provider: Patricia Tobias RN - Reason: Loss of IV access) 3 mL, Intracatheter, EVERY 8 HOURS, Firs t dose on Tue08/15/17 at 1445, And Q1H PRN, to lock peripheral IV dormant line., Post-procedure venlafaxine (EFFEXOR-ER) 24 hr tablet 225 mg 1509 (Giv en - Provider: Britta Calvert, RN) 1020 (Given - Provider: Patricia Tobias, RN) 0801 (Giv en - Provider: Patricia Tobias, KIKA) 225 mg, Oral, DAILY, First dose on Tue at 1445, DO NOT CRUSH., , Home dose: 150mg + 75mg = 225mg daily Continuous Medication Order 08/16/2017 08/17/2017 08/18/2017 lactated ringers infusion 0650 (New Bag - Provider: Coty kumar, KIKA) at 100 mL/hr, Intravenous, CONTINUOUS, C hange to saline lock when PO well tolerated., Post-procedure, Starting Tue08/15/17 at 1445, Until Chel 08/18/17 at 1419 PRN Medication Order 08/16/2017 08/17/2017 08/18/2017 acetaminophen (TYLENOL) tablet 650 mg 650 mg, Oral, EVERY 4 HOURS PRN, other, multimodal surgical pain management along with NSAIDS and opioid medication as indicated based on pain control and physical function., Starting Chel 08/18/17 at 1445 , May give first dose 4 hours after last scheduled dose of acetaminophen Maximum acetaminophen dose from all sources = 75 mg/kg/day not to exceed 4 grams/day., Post-procedure benzocaine-menthol (CHLORASEPTIC) 6-10 MG lozenge 1-2 lozenge 1-2 lozenge, Buccal, EVERY 1 HOUR PRN, s ore throat, sore throat without fever, Starting Tue08/15/17 at 1437, Post-procedure diphenhydrAMINE (BENADRYL) capsule 25 mg(Linked Group 2) 108 (Given - Provider: Sugar Bella RN)2155 (Given - Provider: Nubia Owens RN) 25 mg, Oral, EVERY 6 HOURS PRN, itching, Starting 08/15/17 at 1437, Caution to be used when administering multiple Central Nervous System (ASSOCIATE DENTIST) depressing meds within a short time frame., Post-procedure diphenhydrAMINE (BENADRYL) injection 25 mg(Linked Group 2) 108 (See Alternative - Provider: Sugar Bella RN)2155 (See Alternative - Provider: Nubia Owens RN) 25 mg, Intravenous, EVERY 6 HOURS PRN, i tching, Only give if patient unable to take PO., Administer over 1-2 Minutes, Starting 08/15/17 at 1437, Caution to be used when administering multiple Central Nervous System (ASSOCIATE DENTIST) depressing meds wit hin a short time frame. For ordered doses up to 50 mg, give IV Push undiluted. Give each 25mg over a minimum of 1 minute. Extend in non-emergency, Post-procedure HYDROmorphone (PF) (DILAUDID) injection 0.3-0.5 mg 0.3-0.5 mg, Intravenous, EVERY 2 HOURS P RN, Starting 08/15/17 at 1437, Until Chel 08/18/17 at 1419, severe pain, other, pain control or improvement in physical function. Hold dose for analgesic side effe cts., Post-procedure, Start at the lowes t dose. May adjust dose by 0.1 mg every 2 hours as needed. Hold dose for analgesic side effects. Notify provider to assess for uncontrolled pain or analgesic side effects. Hold while on IV SLITTER CREASER SLOTTER HELPER or with r egular IV opioid dosing. For ordered doses up to 4 mg give IV Push undiluted. Administer each 2mg over 2-5 minutes. hydrOXYzine (ATARAX) tablet 25 mg(Linked Group 3) 2155 (Given - Provider: Nubia Owens RN) 25 mg, Oral, EVERY 6 HOURS PRN, other, a djuvant pain, Starting 08/17/17 at 0648 hydrOXYzine (ATARAX) tablet 50 mg(Linked Group 3) 2155 (See Alternative - Provider: Nubia Owens RN) 50 mg, Oral, EVERY 6 HOURS PRN, other, a djuvant pain, Starting 08/17/17 at 0648 lidocaine (LMX4) kit Topical, EVERY 1 HOUR PRN, pain, with VA D insertion or accessing implanted port., Starting 08/15/17 at 1437, Do NOT give if patient has a history of allergy to any local anesthetic or any shirley prod uct. Apply 30 minutes prior to VAD inser tion or port access. MAX Dose: 2.5 g (?? of 5 g tube), Post-procedure lidocaine 1 % 1 mL 1 mL, Other, EVERY 1 HOUR PRN, mild pain with VAD insertion or accessing implanted port, Starting 08/15/17 at 1437, Do NOT give if patient has a history of allergy to any local anesthetic or any gleason e product. MAX dose 1 mL subcutaneous O R intradermal in divided doses., Post-procedure magnesium hydroxide (MILK OF MAGNESIA) suspension 30 mL 1630 (Given - Provider: Nubia Owens, RN) 0800 (Given - Provider: Patricia Tobias RN) 30 mL, Oral, DAILY PRN, constipation, Starting Tue08/17/17 at 1451, Shake well. melatonin tablet 3-5 mg 3-5 mg, Oral, AT BEDTIME PRN, sleep, Sta rting Tue08/16/17 at 2000, POD 1. Do not give unless at least 6 hours of uninterrupted sleep is expected., Post-procedure naloxone (NARCAN) injection 0.1-0.4 mg 0.1-0.4 mg, Intravenous, EVERY 2 MIN PRN , opioid reversal, Starting 08/15/17 at 1437, For respiratory rate LESS than or EQUAL to 8. Partial reversal dose: 0.1 mg titrated q 2 minutes for Analgesia Asa e Effects Monitoring Sedation Level of 3 (frequently drowsy, arousable, drifts to sleep during conversation).Full reversal dose: 0.4 mg bolus for Analgesia Side Effects Monitoring Sedation Level of 4 (s omnolent, minimal or no response to stim ulation). For ordered doses up to 2mg give IVP. Give each 0.4mg over 15 seconds in emergency situations. For non- emergent situations further dilute in 9mL of NS t o facilitate titration of response., Post-procedure ondansetron (ZOFRAN) injection 4 mg(Linked Group 4) 02 32 (Given - Provider: Sugar Bella, KIKA) 4 mg, Intravenous, EVERY 6 HOURS PRN, na usea, vomiting, Administer over 2-5 Minutes, Starting 08/15/17 at 1437, This is Step 1 of nausea and vomiting management. If nausea not resolved in 15 minutes, go to Step 2 prochlorperazine (COMPAZINE ). Irritant. For ordered doses up to 4 mg, give IV Push undiluted over 2-5 minutes., Post-procedure ondansetron (ZOFRAN-ODT) ODT tab 4 mg(Linked Group 4) 0232 (See Alternative - Provider: Sugar Bella RN) 4 mg, Oral, EVERY 6 HOURS PRN, nausea, v omiting, Starting 08/15/17 at 1437, This is Step 1 of nausea and vomiting management. If nausea not resolved in 15 minutes, go to Step 2 prochlorperazine (CALOS ZINE). Do not push through foil backing. Peel back foil and gently remove. Place on tongue immediately. Administration with liquid unnecessary With dry hands, peel back foil backing and gently remove ta blet; do not push oral disintegrating ta blet through foil backing; administer immediately on tongue and oral disintegrating tablet dissolves in seconds; then swallow with saliva; liquid not required., Post-procedure oxyCODONE IR (ROXICODONE) tablet 5-10 mg 0232 (Given - Provider: Sugar Bella, KIKA)0752 (Given - Provider: Britta Calvert RN)1105 (Given - Provider: Britta Calvert RN)1500 (Given - Provider: Britta Calvert RN)2132 (Given - Provider: Jayashree Qureshi RN) 0801 (Given - Provider: Patricia Tobias, KIKA)1324 (Given - Provider: Patricia Tobias, KIKA)2250 (Given - Provider: Nubia Owens RN) 0801 (Given - Provider: Patricia Tobias, KIKA)1141 (Given - Provider: Patricia Tobias, KIKA) 5-10 mg, Oral, EVERY 3 HOURS PRN, other, pain control or improvement in physical function. Hold dose for analgesic side effects., Starting 08/15/17 at 1437, Start with the lowest dose. May adjust dose by 5 mg every 3 hours as needed. Notify provider to assess for uncontrolled pain or analgesic side effects. Hold while on [employer] or with regular IV opioid dosing. Maximum total is 80 mg in 24 hours., Post-procedure prochlorperazine (COMPAZINE) injection 10 mg(Linked Group 5) 10 mg, Intravenous, EVERY 6 HOURS PRN, n ausea, vomiting, Administer over 1-2 Minutes, Starting 08/15/17 at 1437, This is Step 2 of nausea and vomiting management. If nausea not resolved in 15 minutes, give metoclopramide (REGLAN), if ordere d (step 3 of nausea and vomiting management) For ordered doses up to 10 mg, give IV Push undiluted. Each 5mg over 1 minute., Post-procedure prochlorperazine (COMPAZINE) tablet 10 mg(Linked Group 5) 10 mg, Oral, EVERY 6 HOURS PRN, nausea, vomiting, Starting 08/15/17 at 1437, This is Step 2 of nausea and vomiting management. If nausea not resolved in 15 minutes, give metoclopramide (REGLAN), if or dered (step 3 of nausea and vomiting management), Post-procedure sodium chloride (PF) 0.9% PF flush 3 mL 3 mL, Intracatheter, EVERY 1 HOUR PRN, l ine flush, for peripheral IV flush post IV meds, Starting 08/15/17 at 1437, Post-procedure Linked Groups Order Group 1: senna-docusate (SENOKOT-S;PERICOLACE) 8.6-50 MG per tablet 1 tabletJump to med 1 tablet, Oral, 2 TIMES DAILY, First dos e on Tue08/15/17 at 2000
If no bowel movement in 24 hours, increase to 2 tablets PO. Hold for loose stools.
Post-procedure Or senna-docusate (SENOKOT-S;PERICOLACE) 8.6-50 MG per tablet 2 tabletJump to med 2 tablet, Oral, 2 TIMES DAILY, First dos e on Tue08/15/17 at 2000
Hold for loose stools.
Post-procedure Group 2: diphenhydrAMINE (BENADRYL) capsule 25 mgJump to med 25 mg, Oral, EVERY 6 HOURS PRN, itching, Starting 08/15/17 at 1437
Caution to be used when administering multiple Central Nervous System (ASSOCIATE DENTIST) depressing meds within a short time frame.
Post-procedure Or diphenhydrAMINE (BENADRYL) injection 25 mgJump to med 25 mg, Intravenous, EVERY 6 HOURS PRN, i tching, Only give if patient unable to take PO., Administer over 1-2 Minutes, Starting 08/15/17 at 1437
Caution to be used when administering multiple Central Nervous System (ASSOCIATE DENTIST) depressing meds within a short time frame. For ordered doses up to 50 mg, give IV Push undiluted. Give each 25mg over a minimum of 1 minute. Extend in non-emergency
Post-procedure Group 3: hydrOXYzine (ATARAX) tablet 25 mgJump to med 25 mg, Oral, EVERY 6 HOURS PRN, other, a djuvant pain, Starting Tue08/17/17 at 0648 Or hydrOXYzine (ATARAX) tablet 50 mgJump to med 50 mg, Oral, EVERY 6 HOURS PRN, other, a djuvant pain, Starting Tue08/17/17 at 0648 Group 4: ondansetron (ZOFRAN-ODT) ODT tab 4 mgJump to med 4 mg, Oral, EVERY 6 HOURS PRN, nausea, v omiting, Starting 08/15/17 at 1437
This is Step 1 of nausea and vomiting management. If nausea not resolved in 15 minutes, go to [place] p 2 prochlorperazine (COMPAZINE). Do not push through foil backing. Peel back foil and gently remove. Place on tongue immediately. Administration with liquid unnecessary With dry hands, peel ba ck foil backing and gently remove tablet ; do not push oral disintegrating tablet through foil backing; administer immediately on tongue and oral disintegrating tablet dissolves in seconds; then swallow with saliva; liquid not required.
Pos t-procedure Or ondansetron (ZOFRAN) injection 4 mgJump to med 4 mg, Intravenous, EVERY 6 HOURS PRN, na usea, vomiting, Administer over 2-5 Minutes, Starting 08/15/17 at 1437
This is Step 1 of nausea and vomiting management. If nausea n ot resolved in 15 minutes, go to Step 2 prochlorperazine (COMPAZINE). Irritant. For ordered doses up to 4 mg, give IV Push undiluted over 2-5 minutes.
Post-procedure Group 5: prochlorperazine (COMPAZINE) injection 10 mgJump to med 10 mg, Intravenous, EVERY 6 HOURS PRN, n ausea, vomiting, Administer over 1-2 Minutes, Starting 08/15/17 at 1437
This is Step 2 of nausea and vomiting management. If nausea not resol bethany in 15 minutes, give metoclopramide ( REGLAN), if ordered (step 3 of nausea and vomiting management) For ordered doses up to 10 mg, give IV Push undiluted. Each 5mg over 1 minute.
Post-procedure Or prochlorperazine (COMPAZINE) tablet 10 mgJump to med 10 mg, Oral, EVERY 6 HOURS PRN, nausea, vomiting, Starting 08/15/17 at 1437
This is Step 2 of nausea and vomiting management. If nausea not resolved in 15 minutes, give metocloprami de (REGLAN), if ordered (step 3 of nause a and vomiting management)
Post-procedure documented in this encounter Care Teams Donor Services Team Leader Relationship Specialty Start Date End Date No Ref-Primary, Physician PCP - General 04/29/17 documented as of this encounter
--- OUTSIDE RECORDS SUMMARY | 2021-12-03 11:11 | XMS_ITS | Encounter Summary ---
:1955 Author Organization [place] Address [address] [place] [address] Care Team Providers Name Role Phone No Ref-Primary, Physician Primary Care Provider [phone] Reason for Visit Auth/Cert Specialty Diagnoses / Procedures Referred By Contact Refer red To Contact Surgery Diagnoses left knee degenerative joint disease [facility] Periop Service s Procedures ARTHROPLASTY KNEE [address] [place], [place] [address] Phone: Fax: Referral ID Status Reason Start Date Expiration Date Visits Requ ested Visits Authorized [id number] 1 1 Encounter Details Date Type Department Care Team Description 08/15/2017 Surgery [facility] Maninder Chang Left tot al knee [place] PeriOp Servic homer Sellers MD arthroplasty [address] [place], [place] ORTHOPEDICS [address] [facility] [phone] [address] [place] [address] (Wo rk) Surgery Details Date/Time Status Location OR Service Patient Case Case Traum a Class Class Type Case? 08/15/17 8:20 Posted RH OR OR 03 Orthopedics Surgery AM Admit Panel 1 Procedure LRB Anes Op Region Wound Class Commen ts Left total knee Left General with Knee I-Clean Left to david knee arthroplasty Block arthroplasty Surgeon Surgeon Role Service Panel Maninder Chang MD Primary Orthopedics 1 Nadine Erickson PA-C Assisting Bread Icer Shania ion 1 Special Needs # H&P. PETIT to screen on 07/27 @0900. documented in this encounter Social History Tobacco [...] documented in this encounter Discharge Instructions Discharge InstructionsPatricia Tobias RN - 08/18/2017 7:35 AM CDT Return to clinic in 10-14 days. Call [phone] to schedule or if you experience any [...] instructions on label) Call your physician if: ([phone]) 1. Persistent fever greater than 100 degrees [...] to your surgery/recovery. Thank you for allowing [facility] to participate in your cares!! AttachmentsThe following attachments cannot be sent through Care Everywhere. CONSTIPATION, TREATING (BOLIVIAN)INCENTIVE SPIROMETER, USING AN (BOLIVIAN) documented in this encounter Medications at Time [...] medications (Aspirin/Naproxen/Tylenol/Oxycodone/Atarax/Senokot), and belongings at this time. Leona Hernandez RN - 08/18/2017 10:28 AM CDT Cement Finisher Discharge Plans in progress: Home with Sp. Barriers to discharge plan: None Follow up plan: Ortho as indicated, NO PCP follow up indicated. Entered by: Leona Silveira 08/18/2017 10:28 AM T Nadine Erickson PA-C - 08/18/2017 6:31 AM [...] morning after AM PT. Nadine Erickson PA-C [phone] Abel Aviles MD - 08/17/2017 12:[address] [facility] Hospitalist Progress Note Assessment & Plan [...] pain control go today. 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 Digital Community Manager Digital Community Manager Present no General Information Onset of Illness/Injury [...] Transfer Skill: Sit to Stand Level of [place]: Sit/Stand stand-by assist Physical Assist/Nonphysical Assist: Sit/Stand supervision Transfer Skill: Sit to Stand weight-bearing as tolerated (with LLE ) Assistive Device for Transfer: Sit/Stand rolling walker Transfer Skill: Toilet Transfer Level of Marion: Toilet contact guard Physical Assist/Nonphysical Assist: Toilet [...] a walker Upper Body Dressing Level of Marion: Dress Upper Body independent Physical Assist/Nonphysical Assist: Dress Upper Body supervision Toileting Level of Marion: Toilet contact guard Physical Assist/Nonphysical Assist: Toilet 1 person assist Assistive Device rolling walker;other (see comments) (vanity ) Grooming Level of Marion: Grooming independent Physical Assist/Nonphysical Assist: Grooming supervision Eating/Self Feeding Level of Marion: Eating independent Physical Assist/Nonphysical Assist: Eating supervision [...] 2 days Anticipated Equipment Needs at Discharge beam dyer recessed vat Anticipated Discharge Disposition Home with Assist Risks and Benefits of Treatment have been explained. Yes Patient, Family & other staff in agreement with plan of care Yes [facility] TM 6 Clicks ?? 2016, Trustees of [facility], under license to [employer]. All rights reserved. 6 Clicks Short Forms Daily Activity Inpatient Short Form [facility]??? 6 Clicks Daily Activity Inpatient Short Form [...] Saenz MD - 08/16/2017 2:[address] [facility] Hospitalist Progress Note Name: Gloria Bonilla [...] milton depending on PT. Nadine Erickson PA-C [phone] Khadijah Phipps, PT - 08/15/2017 4:41 PM [...] in agreement with plan of care Yes [facility] AM-PAC TM 6 Clicks ?? 2016, Trustees of [facility], under license to [employer]. All rights reserved. 6 Clicks Short Forms Basic Mobility Inpatient Short Form [facility] AM-PAC??? 6 Clicks V.2 Basic Mobility Inpatient Short [...] mention of other manifestation ~2000 treated at [place] Past Surgical History: Past Surgical History: Procedure [...] Onset ??? C.A.D. Father age 67, first HI in his 20's or 30's (?); had a history of scarlet fever ??? Arthritis Mother age 87, had severe RA ??? CEREBROVASCULAR DISEASE Mother TIA ??? Hypertension Son 2 SONS WITH ENLARGED VENTRICLE - [facility]REATED BY CARDS [facility] ??? C.A.D. Brother Born 1940, [place] at age 69, also lumbar fusion ??? Family History Negative Sister One at age 2 yo. ??? Family History Negative Brother Born 1941 ??? Thyroid Disease Sister Born 1953, lumbar fusion ??? Thyroid Disease Sister Born 1946, lumbar fusion Allergies: Allergies Allergen Reactions ??? [...] Notes Plan of Care - Ayesha Ramon, RADIOLOGY EQUIPMENT SERVICER - 08/18/2017 9:37 AM CDT Problem: Patient Care Overview Goal: Plan of Care/Patient Progress Review Cement Finisher PT Patient plan for discharge: home with [...] goal(s). See goals on Care Plan in [facility] electronic health record for goal details. Goals met Therapy recommendation(s): Continued therapy is recommended. Rationale/Recommendations: OPPT to maximize outcomes. Note: Pt not seen by documenting PT on this date. Information obtained from chart review and discussion with RADIOLOGY EQUIPMENT SERVICER. Plan of Care - Judy Bazan RN [...] Overview Goal: Plan of Care/Patient Progress Review Cement Finisher OT Patient plan for discharge: Home with [...] needed for I/ADL cares (dressing, showering, mealprep, line and frame poler) Rationale for recommendations: Pt demonstrates carry over [...] goal(s). See goals on Care Plan in [facility] electronic health record for goal details. Goals [...] Overview Goal: Plan of Care/Patient Progress Review Cement Finisher PT Patient plan for discharge: home with [...] Overview Goal: Plan of Care/Patient Progress Review Cement Finisher OT Patient plan for discharge: Home with [...] Overview Goal: Plan of Care/Patient Progress Review Cement Finisher PT Patient plan for discharge: home with [...] available to assist as needed after discharge. Cement Finisher PT Patient plan for discharge: Home with [...] LS clear. Lives in house with in [place], no stairs. Clear liquid. Will continue to monitor. Op Note - Maninder Chang MD - 08/15/2017 10:08 AM CDT Procedure Date: 08/15/2017 DATE OF PROCEDURE: 08/15/2017 PREOPERATIVE DIAGNOSIS: Osteoarthritis, left knee (valgus). POSTOPERATIVE DIAGNOSIS: Osteoarthritis, left knee (valgus). PROCEDURE PERFORMED: Left total knee arthroplasty. SURGEON: Maninder Chang MD GRINDER MACHINE KNIFE SETTER: Nadine Erickson PA-C ANESTHESIA: General with adductor [...] CC Name: GLORIA BONILLA MRN: [id number] Account: [id number] : 1955 Procedure Date: 08/15/2017 Document: [id number] Brief Op Note - Maninder Chang MD - 08/15/2017 6:54 AM CDT [facility] Brief Operative Note Pre-operative diagnosis: left knee [...] complications Pharmacy-Admission Medication History - [facility] - 08/11/2017 1:23 PM CDT Pharmacy reviewed prior to admission med list from pre-admitting rn, Di[facility]anol[facility]. Pt is on ER 120mg daily-updated RADIOLOGY EQUIPMENT SERVICER med list. Prior to Admission medications Medication [...] - 144 08/17/2017 [facility] mmol/L 7:35 AM [facility] Potassium 4.4 3.4 - 5.3 08/17/2017 [facility] mmol/L 7:35 AM [facility] Chloride 105 94 - 109 08/17/2017 [facility] mmol/L 7:35 AM [facility] Carbon Dioxide 29 20 - 32 08/17/2017 [facility] mmol/L 7:35 AM [facility] Anion Gap 5 3 - 14 08/17/2017 [facility] mmol/L 7:35 AM [facility] Glucose 157 (H) 70 - 99 08/17/2017 [facility] mg/dL 7:35 AM [facility] Urea Nitrogen 11 7 - 30 08/17/2017 [facility] mg/dL 7:35 AM [facility] Creatinine 0.59 0.52 - 08/17/2017 [facility] 1.04 mg/dL 7:35 AM [facility] GFR Estimate >90 >60 08/17/2017 [facility] mL/min/1.7 7:[address] Comment: Non GFR Calc GFR Estimate If >90 >60 mL/min/1.7m2 08/17/2017 7:35 A M [facility] Comment: GFR Calc Calcium 8.6 8.5 - 10.1 mg/dL 08/17/2017 7:35 AM [facility] Specimen Anatomical Collection Method Collection Time Receive d Time (Source) Location / / Volume Laterality Blood specimen 08/17/2017 6:55 AM 018 6:56 (specimen) CDT AM CDT Ada Saenz MD LAB - BLOOD ORDERABLES Performing Organization Address City/State/ZIP Code Phon e Number [facility] [address] [place], [place] [address] [place] [address] [address] [place], [place] [address], [facility] [phone] (ABNORMAL) Hemoglobin (08/17/2017 6:55 AM CDT) P athologist Signature Hemoglobin 9.9 (L) 11.7 - 15.7 08/17/2017 [facility] g/dL 7:11 AM [facility] Specimen Anatomical Collection Method Collection Time Receive d Time (Source) Location / / Volume Laterality Blood specimen 08/17/2017 6:55 AM 018 6:56 (specimen) CDT AM CDT Maninder Chang MD LAB - BLOOD ORDERABLES Performing Organization Address City/State/ZIP Code Phon e Number [facility] [address] [place], [place] [address] [facility] [address] [place], [place] [address], [facility] [phone] (ABNORMAL) Hemoglobin (08/16/2017 6:32 AM CDT) P athologist Signature Hemoglobin 9.9 (L) 11.7 - 15.7 08/16/2017 [facility] g/dL 7:00 AM [facility] Specimen Anatomical Collection Method Collection Time Receive d Time (Source) Location / / Volume Laterality Blood specimen 08/16/2017 6:32 AM 018 6:33 (specimen) CDT AM CDT Maninder Chang MD LAB - BLOOD ORDERABLES Performing Organization Address City/State/ZIP Code Phon e Number [facility] [address] [place], [place] [address] [facility] [address] [place], [place] [address] [facility] [phone] XR Knee Port Left 1/2 Views (08/15/2017 [...] MAR Action Action Date Dose Rate Site aspirin EC tablet 325 mg Given 08/18/2017 8:01 AM CDT 325 mg 325 mg, Oral, 2 TIMES DAILY, First dose on Tue08/15/17 at 2000, Post-procedure Given 08/17/2017 7:33 PM CDT 325 mg Given 08/17/2017 10:21 AM CDT 325 mg bacitracin 100,000 Units, Given 08/15/2017 10:17 1,500 mLs Operative gentamicin (GARAMYCIN) 200 mg, AM CDT Site/Surgical Site ceFAZolin (ANCEF) 2 g in sodium chloride 0.9% (bag) 2,000 mL Bag for irrigation Irrigation, CONTINUOUS, Starting on Tue08/15/17 at 0015, *For Irrigation use ONLY*., Intra-procedure bupivacaine 0.25% w/EPI Given 08/15/2017 9:22 AM 31 ml given Operative 1:200,000 (29mL) + CDT Site/S urgical Site ketorolac 30 mg (1mL) PRN, Starting on Tue08/15/17 at 0922, Intra-procedure diphenhydrAMINE (BENADRYL) capsule 25 mg Given 08/17/2017 9:56 PM CDT 25 mg 25 mg, Oral, EVERY 6 HOURS PRN, itching, Starting on Tue08/15/17 at 1437, Caution to be used when administering multiple Central Nervous System (SHUTTLE VAN DRIVER) depressing meds within a short time frame., Post-procedure Given 08/17/2017 1:09 AM CDT 25 mg diphenhydrAMINE (BENADRYL) injection 25 mg 25 mg, Intravenous, EVERY 6 HOURS PRN, i tching, Only give if patient unable to take PO., Administer over 1-2 Minutes, Starting on Tue at 1437, Caution to be used when administering multiple Central Nervous Syste m (SHUTTLE VAN DRIVER) depressing meds within a short time frame. [...] Bag 08/15/2017 8:32 PM CDT 100 mL/hr magnesium hydroxide (MILK OF MAGNESIA) Given 08/18/2017 [...] 08/15/2017 6:29 PM CDT 4 mg ondansetron (ZOFRAN-ODT) ODT tab 4 mg 4 [...] saliva; liquid not required ., Post-procedure oxyCODONE IR (ROXICODONE) tablet 5-10 mg Given [...] or analgesic side effects. Hold while on SCREEN PRINTER or with regular IV opioid dosing. Maximum total is 80 mg in 24 hours., Post-procedure Given 08/18/2017 8:01 AM CDT 10 mg Given 08/17/2017 10:50 PM CDT 10 mg povidone-iodine Given 08/15/2017 10:18 AM 150 ml given Operative (BETADINE) 10% soln 7 mL CDT Site/Surgical Site + 0.9% NaCl 250 mL PRN, Starting on Tue08/15/17 at 1018, Intra-procedure primidone (MYSOLINE) half-tab 50 mg Given 08/18/2017 [...] over 1 minute., Post- procedure prochlorperazine (COMPAZINE) tablet 10 m g 10 [...] 7:27 PM CDT 2 tablets sodium chloride 0.9% (bottle) irrigation Given 08/15/2017 10:17 AM CDT 1,000 mLs PRN, Starting on Tue08/15/17 at 1017, Intra-procedure venlafaxine (EFFEXOR-ER) 24 hr tablet 22 5 [...] Alba LPN) 0109 (Given - Provider: Sugar scott, KIKA)101 (Given - Provider: Patricia Tobias, KIKA)193 (Given - Provider: Nubia Owens RN) 021 (Given - Provider: Judy Bazan RN)112 (Given - Provider: Patricia Tobias RN) 975 mg, Oral, EVERY 8 HOURS, First dose on Tue08/15/17 at 1445, For 3 days, Do not use if patient has an active opioid/acetaminophen combined analgesic product ordered for pain. Maximum acetaminophen dos e from all sources = 75 mg/kg/day not to exceed 4 grams/day., Po st-procedure aspirin EC tablet 325 mg 075 (Given - Provider: Ele Calvert RN)192 (Given - Provider: Jayashree Qureshi RN) 102 (Given - Provider: Patricia Tobias, KIKA)1933 (Given [...] (COMPLETED) 0752 ( Given - Provider: Britta Calvert RN) 1017 (Given - Provider: Patricia Tobias RN) 0801 (Giv en - Provider: Patricia Tobias RN) 400 mg, Oral, DAILY, First dose on Tue at 0800, For 3 days, Post-procedure ferrous gluconate (FERGON) tablet 324 mg 0752 (Given - Provider: Britta Calvert, RN) 1020 (Given - Provider: Patricia Tobias, KIKA) 0801 (Giv en - Provider: Patricia Tobias RN) 324 mg, Oral, DAILY, First dose on Tue at 1445, DO NOT CRUSH. Absorbed best on an empty stomach. If stomach upset occurs, can take with meals., Post-procedure oxyCODONE (OxyCONTIN) 12 hr tablet 10 mg (COMPLETED) 0 652 (Given - Provider: Coty Smith, RN)1927 (Given - Provider: Jayashree Qureshi, KIKA) 0637 (Given - Provider: Sugar Bella, KIKA) 10 mg, Oral, EVERY 12 HOURS, First dose on Tue08/15/17 at 1900, For 4 doses, Hold while on SCREEN PRINTER or regular IV opioid dosing. Start 12 [...] 1) 0752 (Given - Provider: Britta Calvert , KIKA)1927 (See Alternative - Provider: Jayashree Qureshi, KIKA) 1020 (See Alternative - Provider: Alba Tobias, KIKA)1934 (See Alternative - Provider: Nubia Owens RN) 0801 (Given - Provider: Patricia Tobias RN) 1 tablet, Oral, 2 TIMES DAILY, First dos e on Tue08/15/17 at 2000, If no bowel movement in 24 hours, increase to 2 tablets PO. Hold for loose stools., Post-procedure senna-docusate (SENOKOT-S;PERICOLACE) 8. 6-50 MG per tablet 2 tablet(Linked Group 1) 0752 (See Alternative - Provider: Radha Calvert, KIKA)1927 (Given - Provider: Jayashree Qureshi, KIKA) 1020 (Given - Provider: Patricia Tobias RN)1934 (Given - Provider: Nubia Owens RN) 0801 (See Alternative - Provider: Alba Tobias, KIKA) 2 tablet, Oral, 2 TIMES DAILY, First [...] 1509 (Giv en - Provider: Britta Calvert, KIKA) 1020 (Given - Provider: Patricia Tobias, KIKA) 0801 (Giv en - Provider: Patricia Tobias RN) 225 mg, Oral, DAILY, First dose on Tue at 1445, DO NOT CRUSH., , Home dose: 150mg + 75mg = 225mg daily Continuous Medication Order 08/16/2017 08/17/2017 08/18/2017 lactated ringers infusion 0650 (New Bag - Provider: Coty kumar, KIKA) at 100 mL/hr, Intravenous, CONTINUOUS, C hange to saline lock when PO well tolerated., Post-procedure, Starting 08/15/17 at 1445, Until Chel 08/18/17 at 1419 [...] ore throat, sore throat without fever, Starting 08/15/17 at 1437, Post-procedure diphenhydrAMINE (BENADRYL) capsule 25 mg(Linked Group 2) 108 (Given - Provider: Sugar Bella RN)2155 (Given - Provider: Nubia Owens, KIKA) 25 mg, Oral, EVERY 6 HOURS PRN, itching, Starting 08/15/17 at 1437, Caution to be used when administering multiple Central Nervous System (SHUTTLE VAN DRIVER) depressing meds within a short time frame., [...] used when administering multiple Central Nervous System (SHUTTLE VAN DRIVER) depressing meds wit hin a short time [...] analgesic side effects. Hold while on IV SCREEN PRINTER or with r egular IV opioid dosing. For ordered doses up to 4 mg give IV Push undiluted. Administer each 2mg over 2-5 minutes. hydrOXYzine (ATARAX) tablet 25 mg(Linked Group 3) 2155 (Given - Provider: Nubia Owens RN) 25 mg, Oral, EVERY 6 HOURS PRN, other, a djuvant pain, Starting Tue08/17/17 at 0648 hydrOXYzine (ATARAX) tablet 50 mg(Linked Group 3) 2155 (See Alternative - Provider: Nubia Owens RN) 50 mg, Oral, EVERY 6 HOURS PRN, other, a djuvant pain, Starting Tue08/17/17 at 0648 lidocaine (LMX4) kit Topical, EVERY [...] 30 mL 1630 (Given - Provider: Nubia Owens RN) 0800 (Given - Provider: Patricia Tobias [...] 02 32 (Given - Provider: Sugar Bella, RN) 4 mg, Intravenous, EVERY 6 HOURS PRN, [...] 4) 0232 (See Alternative - Provider: Sugar Bella, RN) 4 mg, Oral, EVERY 6 HOURS [...] mg 0232 (Given - Provider: Sugar Bella, RN)0752 (Given - Provider: Britta Calvert, RN)1105 (Given - Provider: Britta Calvert, RN)1500 (Given - Provider: Britta Calvert, RN)2132 (Given - Provider: Jayashree Qureshi, KIKA) 0801 (Given - Provider: Patricia Tobias, RN)1324 (Given - Provider: Patricia Tobias, KIKA)2250 (Given [...] or analgesic side effects. Hold while on SCREEN PRINTER or with regular IV opioid dosing. Maximum [...] peripheral IV flush post IV meds, Starting Tue08/15/17 at 1437, Post-procedure Linked Groups Order Group [...] Oral, EVERY 6 HOURS PRN, itching, Starting Tue08/15/17 at 1437
Caution to be used when administering multiple Central Nervous System (SHUTTLE VAN DRIVER) depressing meds within a short time frame.
Post-procedure Or diphenhydrAMINE (BENADRYL) injection 25 mgJump to med 25 mg, Intravenous, EVERY 6 HOURS PRN, i tching, Only give if patient unable to take PO., Administer over 1-2 Minutes, Starting Tue08/15/17 at 1437
Caution to be used when administering multiple Central Nervous System (SHUTTLE VAN DRIVER) depressing meds within a short time frame. [...]
Post-procedure documented in this encounter Care Teams Subwarehouse Supervisor Relationship Specialty Start Date End Date No Ref-Primary, Physician PCP - General 04/29/17 documented as of this encounter
--- OUTSIDE RECORDS SUMMARY | 2021-12-03 11:11 | XMS_ITS | Encounter Summary ---
:1955 Author Organization [place] Address [address] [place] [address] Care Team Providers Name Role Phone Vincenzo Grimaldo MD Primary Care Provider Reason for Visit Reason Onset Date Comments Medication Request 10/11/2011 effexor XR Encounter Details Date Type Department Care Team Description 10/11/2011 Refill [facility] Vincenzo Grimaldo MD Medication Request Clinic [place] [address] (effexor XR) [address] [place] [address] [place], [place] [phone] (Wo rk) [address] [phone] Social History Tobacco Use Types Packs/Day Years [...] this encounter Miscellaneous Notes Telephone Encounter - Elizabeth Yanes - 10/11/2011 2:56 PM CDT Addended by: ELIZABETH YANES on: 10/11/2011 02:56 PM Modules accepted: Orders, Medications Telephone Encounter - Elizabeth Yanes - 10/11/2011 2:53 PM CDT [facility] pharmacist call and states that pt is taking Effexor XR 75 mg not the 37.5 mg. RN changed Rxin EPIC. Telephone Encounter - Elizabeth Yanes - 10/11/2011 10:43 AM CDT Pt calls and states that she does not take regular Effexor is requesting new Rx for effexor XR 37.5 mg to [facility]. Rx changed in EPIC and faxed to pharmacy. documented in this encounter Plan of Treatment Not on filedocumented as of this encounter Visit Diagnoses Diagnosis Flushing - Primary documented in this encounter Care Teams Industrial Electrical Technician Relationship Specialty Start Date End Date Vincenzo Grimaldo MD PCP - General 07/07/07 02/24/14 documented as of this encounter
--- OUTSIDE RECORDS SUMMARY | 2021-12-03 11:11 | XMS_ITS | Encounter Summary ---
:1955 Author Organization [place] Address [address] [place] [address] Care Team Providers Name Role Phone Vincenzo Grimaldo MD Primary Care Provider Reason for Visit Reason Comments Abstract problem list Encounter Details Date Type Department Care Team Description 12/08/2011 Abstract [facility] Vincenzo Grimaldo MD [place] [address] [facility] [address] [place] [address] [place] [address] [phone] Social History Tobacco Use Types Packs/Day Years [...] on filedocumented in this encounter Care Teams Engine Repairer Production Relationship Specialty Start Date End Date Vincenzo Grimaldo MD PCP - General 07/07/07 02/24/14 documented as of this encounter
--- OUTSIDE RECORDS SUMMARY | 2021-12-03 11:11 | XMS_ITS | Encounter Summary ---
:1955 Author Organization [place] Address [address] [place] [address] Care Team Providers Name Role Phone Vincenzo Grimaldo MD Primary Care Provider Reason for Visit Reason Onset Date Comments Forms 09/28/2012 records request ([facility]) Encounter Details Date Type Department Care Team Description 09/28/2012 Telephone [facility] Vincenzo Grimaldo MD Forms (records request [place] [address] ([facility] [address] [place] [address])) [facility] [address] [place] [address] [place], [place] [phone] (Wo rk) [address] [phone] Social History Tobacco Use Types Packs/Day Years [...] this encounter Miscellaneous Notes Telephone Encounter - Leona Flowers - 10/10/2012 2:18 PM CDT 09/29/12, records copied/sent by [facility]. Telephone Encounter - Leona Flowers - 09/28/2012 2:26 PM CDT 09/25/12, rec'd records request from pt, emailing to [facility]. documented in this encounter Plan of Treatment Not on filedocumented as of this encounter Visit Diagnoses Not on filedocumented in this encounter Care Teams Distribution Center Manager Relationship Specialty Start Date End Date Vincenzo Grimaldo MD PCP - General 07/07/07 02/24/14 documented as of this encounter
--- OUTSIDE RECORDS SUMMARY | 2021-12-03 11:11 | XMS_ITS | Encounter Summary ---
:1955 Author Organization [facility] Address [address] [place] [address] Care Team Providers Name Role Phone Vincenzo Grimaldo MD Primary Care Provider Reason for Visit Reason Onset Date Comments Refill Request 11/02/2011 zolpidem Encounter Details Date Type Department Care Team Description 11/02/2011 Refill [facility] Vincenzo Grimaldo MD Refill Request Clinic [place] [address] (zolpidem) [address] [place] [address] [place], [place] [phone] (Wo rk) [address] [phone] Social History Tobacco Use Types Packs/Day Years [...] this encounter Miscellaneous Notes Telephone Encounter - Salvador Puckett - 11/02/2011 5:43 PM CDT Approved and faxed to [facility] in [place]. Gale Puckett MA Telephone Encounter - Vincenzo Grimaldo MD - 11/02/2011 4:09 PM CDT Please fax written Rx. Telephone Encounter - Suad Rutherford RN - 11/02/2011 8:43 AM CDT Last OV: 10/11/11 with [facility] Last filled: 10/03/11, #30 MD requires authorization, please print MD Andrew signature needed. Desi Rutherford RN documented in this encounter Plan of Treatment Not on filedocumented as of this encounter Visit Diagnoses Diagnosis Insomnia - Primary Insomnia, unspecified documented in this encounter Care Teams Tire Installer Relationship Specialty Start Date End Date Vincenzo Grimaldo MD PCP - General 07/07/07 02/24/14 documented as of this encounter
--- OUTSIDE RECORDS SUMMARY | 2021-12-03 11:11 | XMS_ITS | Encounter Summary ---
:1955 Author Organization [facility] Address [address] [place] [address] Care Team Providers Name Role Phone No Ref-Primary, Physician Primary Care Provider [phone] Encounter Details Date Type Department Care Team Description 07/26/2017 Orders Only [facility] Russell Maria Pre-oper [facility] MD Marlo laboratory examination [address] [facility] (Primary Dx) [place], [place] [facility] [id number] [phone] [address] [address] [place] [address] Social History Tobacco Use Types Packs/Day Years [...] Not on filedocumented as of this encounter Results Methicillin Resist/Sens S. aureus PCR (07/27/2017 9:10 AM CDT) Patholo gist Method Time Signature Specimen Nares 07/27/2017 [facility] Description 9:15 AM CDT [facility] Methicillin Negative NEG^Negat 07/27/2017 [facility] Resist/Sens S. kim 2:32 PM CDT [facility] aureus PCR [facility] Comment: MRSA Negative: SA Positive MRSA target DNA not detected, presumed n egative for MRSA colonization or the number of bacteria present may be below the limit of detection. Staphylococcus aureus target DNA detecte d, presumed positive for SA colonization. A positive test does not necessarily ind icate the presence of viable organisms. ??It is, however, presumptive for the presence of SA. ??This result does not preclude MRSA nasal colonizatio n. FDA approved assay performed using [email or web address] GeneXpert(R) real-time PCR. Specimen (Source) Anatomical Collection Method Collection Time Re ceived Time Location / / Volume Laterality Nasal structure 07/27/2017 9:10 8 9:20 (body structure) AM CDT AM CDT Russell Maria MD LAB - MICRO GENERAL ORDERABL ES Performing Organization Address City/State/ZIP Code Phon e Number [address] [address] [facility] [address] [phone] documented in this encounter Visit Diagnoses Diagnosis Pre-operative laboratory examination - P rimary Pre-procedural laboratory examination documented in this encounter Care Teams Sales And Service Specialist Relationship Specialty Start Date End Date No Ref-Primary, Physician PCP - General 04/29/17 documented as of this encounter
--- OUTSIDE RECORDS SUMMARY | 2021-12-03 11:11 | XMS_ITS | Encounter Summary ---
:1955 Author Organization [facility] Address [address] [place] [address] Care Team Providers Name Role Phone Vincenzo Grimaldo MD Primary Care Provider Reason for Visit Reason Onset Date Comments Refill Request 03/31/2012 Adarshitussin Encounter Details Date Type Department Care Team Description 03/31/2012 Refill [facility] Vincenzo Grimaldo MD Refill Request Clinic [place] [address] (Robitussin) [address] [place] [address] [place] [address] [place], [place] [phone] (Wo rk) [address] [phone] Social History Tobacco Use Types Packs/Day Years [...] Notes Telephone Encounter - Salvador Puckett - 03/31/2012 5:46 PM CST Approved and faxed to [facility] in [place]. Gale Puckett MA US DIRECTOR Telephone Encounter - Vincenzo Grimaldo MD - 03/31/2012 5:36 PM CST Please fax written Rx. US DIRECTOR Telephone Encounter - Elizabeth Yanes - 03/31/2012 12:19 PM CST MD approval required Please advise US DIRECTOR Telephone Encounter - Amy Hatfield - 03/31/2012 12:14 PM CST Refill request from [facility] [facility] for: Robitussin Last O/V: 07/30/11 Last Refill: 10/11/11 US DIRECTOR documented in this encounter Plan of Treatment Not on filedocumented as of this encounter Visit Diagnoses Diagnosis Cough - Primary Acute bronchitis with symptoms > 10 days Acute bronchitis documented in this encounter Care Teams Onion Tier Relationship Specialty Start Date End Date Vincenzo Grimaldo MD PCP - General 07/07/07 02/24/14 documented as of this encounter
--- OUTSIDE RECORDS SUMMARY | 2021-12-03 11:11 | XMS_ITS | Encounter Summary ---
:1955 Author Organization [facility] Address [address] [place] [address] Care Team Providers Name Role Phone Vincenzo Grimaldo MD Primary Care Provider Reason for Visit (Routine) - Closed Specialty Diagnoses / Procedures Referred By Contact Refer red To Contact Radiology Diagnoses DIAG RIGHT-DIGITAL Procedure Notes: [facility] [place] [facility] back [facility] Procedures RADIOLOGY [address] [facility], [address] [place], [place] [address] Phone: Fax: Referral ID Status Reason Start Date Expiration Date Visits Requ ested Visits Authorized [id number] Closed 08/11/2011 08/10/2012 1 1 Encounter Details Date Type Department Care Team Description [facility]/13[facility]2011 [facility] [address] [place] [phone] Social History Tobacco Use Types Packs/Day Years [...] Procedure Name Priority Date/Time Associated Comments Diagnosis MA DIAGNOSTIC Routine 08/13/2011 12:50 PM Abnormal mammogram R esults for this DIGITAL RIGHT CDT procedure are in the results section. documented in this encounter Results Mammo diagnostic Digital right* (08/13/2011 12:50 PM CDT) Anatomical Region Laterality Modality Breast Right Other Specimen (Source) Anatomical Collection Method Collection Time Re ceived Time Location / / Volume Laterality 08/13/2011 12:50 PM CDT Impressions 08/13/2011 1:47 PM CDT DIAGNOSTIC MAMMOGRAM, RIGHT BREAST, DIGI ELEAZAR w/CAD ??- August 13, 2011 REASON FOR EXAM: ??Recalled from her rec ent screening mammogram to evaluate possible developing right breas t nodule. No reported clinical breast symptoms. COMPARISON: ??Recent screening mammogram dated 07/30/2011 and older screening mammograms from 2010, 2008 and 2007. FINDINGS: ??Additional right mammographi c views today do not substantiate a nodular lesion and I jessenia rose the appearance on the recent screening mammogram was caused by summation density IMPRESSION: ??BI-RADS 1, NEGATIVE RIGHT RECOMMENDATION: Screening mammography in one year unless a new clinical issue develops in the interim. Vincenzo Grimaldo MD IMG MAMMOGRAPHY ORDERABLES documented in this encounter Visit Diagnoses Diagnosis Abnormal mammogram Abnormal mammogram, unspecified documented in this encounter Care Teams Tablet Tester Relationship Specialty Start Date End Date Vincenzo Grimaldo MD PCP - General 07/07/07 02/24/14 documented as of this encounter
--- OUTSIDE RECORDS SUMMARY | 2021-12-03 11:11 | XMS_ITS | Encounter Summary ---
:1955 Author Organization [facility] Address [address] [facility] [place] [address] Care Team Providers Name Role Phone Idania Grimaldo MD Primary Care Provider Reason for Referral Referral not Required - Closed Specialty Diagnoses / Procedures Referred By Contact Refer red To Contact Diagnoses HL (hearing loss) Idania Grimaldo MD [facility] [address] [place] [address] [place] [address] Fax: Referral ID Status Reason Start Date Expiration Date Visits Requ ested Visits Authorized [id number] Closed 07/30/2011 01/26/2012 1 1 Reason for Visit Reason Comments Physical Need refill on ambien today- -pt is leaving on vacation tomorrow and needs it-- and pap--pt is fasting Pre Visit Planning - Done Encounter Details Date Type Department Care Team Description 07/30/2011 Office Visit [facility] Idania Grimaldo Routin e general medical examination at a health care facility (Primary Dx); Clinic Tatianna GRULLON HL (hearing loss); [address] Insomnia; [address] [facility] [address] Edema; [place], [place] Cervicalgia ; [id number] Headache; [phone] Vasomotor flush ing; (Work) UTERINE LEIOMYOMA NOS; CARDIOVAS CULAR SCREENING; LDL GOAL LESS THAN 160; Overweight Social History Tobacco Use Types Packs/Day Years [...] Sign Reading Time Taken Comments Blood Pressure 124/68 07/30/2011 2:15 PM CDT Pulse 76 07/30/2011 2:15 PM CDT Temperature 36.9 ??C (98.5 ??F) 07/30/2011 2:15 PM CDT Respiratory Rate 16 07/30/2011 2:15 PM CDT Oxygen Saturation - - Inhaled Oxygen Concentration - - Weight 98.1 kg (216 lb 4.8 oz) 07/30/2011 2:15 PM CDT Height 180.3 cm (5' 11) 07/30/2011 2:15 PM CDT Body Mass Index 30.17 07/30/2011 2:15 PM CDT documented in this encounter Patient Instructions Patient InstructionsIdania Grimaldo MD - 07/29/2011 8:54 AM CDT PREVENTIVE HEALTH RECOMMENDATIONS: Get a Pap test each year. If you have 3 normal tests in a row, you may have the test every 2 to 3 years. You do not need a Pap test if you've had a hysterectomy (removal of uterus) and have not had cancer. You should be tested each year for STDs (sexually transmitted diseases), if you're at risk. Have a mammogram every 1 to 2 years. Have a colonoscopy at age 50, or have a yearly FIT test (stool test). These exams will check for colon cancer. Have a cholesterol test every 5 years. Have a diabetes test (fasting glucose) every three years. If you are at risk for diabetes, you should have this test more often. Vaccines: Get a flu shot each year. Get a tetanus shot every 10 years. Eat at least 5 servings of fruits and vegetables daily. Eat whole-grain bread, whole-wheat pasta and brown rice instead of white grains and rice. For bone health: Eat calcium-rich foods or take calcium pills (500 to 600 mg) twice a day with food.Also take vitamin D (1000 IUs) each day. If you are at risk for osteoporosis (brittle bone disease), think about having a bone density scan (DEXA). Exercise for at least 150 minutes a week (an average of 30 minutes a day, 5 days of the week). This will help you control your weight and prevent disease. Limit alcohol to one drink per day. No smoking. Wear sunscreen to prevent skin cancer. See your dentist twice a year for an exam and cleaning. See your eye doctor every 1 to 2 years. Everything looks fine! Someone should be contacting you to set up a mammogram. Refills of medications have been faxed to your pharmacy. I'll get back to you with lab results within three weeks, sooner if there is anything of concern. See you in a year, sooner if problems. documented in this encounter Progress Notes Idania Grimaldo MD - 07/29/2011 8:54 AM CDT SUBJECTIVE: CC: Gloria Garcia is an 55 year old woman who presents for preventive health visit. Besides routine health maintenance, she would like to discuss: see ROS. Healthy Habits: Do you get at least three servings of calcium containing foods daily (dairy, green leafy vegetables,etc.)? no Outside of work or daily activities, how many days per week do you exercise for 30 minutes or longer? yes Dietary Guidelines for Americans, 2010 USDA's MyPlate Estimated Body mass index is 32.04 kg/(m^2) as calculated from the following: Height as of 10/05/10: 5' 9.5(1.765 m). Weight as of 02/26/11: 220 lb 1.6 oz(99.837 kg). Have you had an eye exam in the past two years? yes Do you see a dentist twice per year? yes MIGRAINE: How often do headaches limit your ability to do usual daily activities including householdwork, work, school, or social activities? (8) Rarely Staff Signature Gale Puckett MA Today's PHQ-2 Score: Abuse: Current or Past(Physical, Sexual or Emotional)- No Do you feel safe in your environment - Yes History Substance Use Topics ??? Smoking status: Never Smoker ??? Smokeless tobacco: Not on file ??? Alcohol Use: Yes 4-5 glasses of wine a week The patient does not drink >3 drinks per day nor >7 drinks per week. Last Mammo:No results found. Last lipid profile: Total Cholesterol: Cholesterol Date Value Range Status 08/22/2009 213* 0-200 (mg/dL) Final LDL Cholesterol is the primary guide to therapy. The NCEP recommends further evaluation of: patients with cholesterol <200 mg/dL if additional risk factors are present, cholesterol >240 mg/dL, triglycerides >150 mg/dL, or HDL <40 mg/dL. LDL Cholesterol: LDL Cholesterol Calculated Date Value Range Status 08/22/2009 121 0-129 (mg/dL) Final LDL Cholesterol is the primary guide to therapy: LDL-cholesterol goal in high risk patients is <100 mg/dL and in very high risk patients is <70 mg/dL. HDL Cholesterol: HDL Cholesterol Date Value Range Status 08/22/2009 64 50-110 (mg/dL) Final Reviewed orders with patient. Reviewed health maintenance and updated orders accordingly - Yes Staff Signature Gale Puckett MA History of abnormal Pap smear: Last 3 Pap Results: PAP (no units) Date Value 07/30/2011 NIL 08/22/2009 NIL 07/12/2008 NIL All Histories reviewed and updated in [facility]. ROS: prone to runny nose. Some hearing loss. Notes pain in the MCP joints of both index fingers. ROS: C: NEGATIVE for fever, chills, change in weight I: NEGATIVE for worrisome rashes, moles or lesions E: NEGATIVE for vision changes or irritation ENT: NEGATIVE for ear, mouth and throat problems R: NEGATIVE for significant cough or SOB B: NEGATIVE for masses, tenderness or discharge CV: NEGATIVE for chest pain, palpitations or peripheral edema GI: NEGATIVE for nausea, abdominal pain, heartburn, or change in bowel habits : NEGATIVE for unusual urinary or vaginal symptoms. Periods are regular. M: NEGATIVE for significant arthralgias or myalgia N: NEGATIVE for weakness, dizziness or paresthesias E: NEGATIVE for temperature intolerance, skin/hair changes H: NEGATIVE for bleeding problems P: NEGATIVE for changes in mood or affect OBJECTIVE: BP 124/68 Pulse 76 Temp(Src) 98.5 ??F (36.9 ??C) (Oral) Resp 16 Ht 5' 11 (1.803 m) Wt 216lb 4.8 oz (98.113 kg) BMI 30.17 kg/m2 GENERAL APPEARANCE: healthy, alert and no distress EYES: Eyes grossly normal to inspection, PERRL and conjunctivae and sclerae normal HENT: ear canals and TM's normal, nose and mouth without ulcers or lesions, oropharynx clear and oral mucous membranes moist NECK: no adenopathy, no asymmetry, masses, or scars and thyroid normal to palpation RESP: lungs clear to auscultation - no rales, rhonchi or wheezes BREAST/Pelvic exams not performed. CV: regular rate and rhythm, normal S1 S2, no S3 or S4, no murmur, click or rub, no peripheral edemaand peripheral pulses strong ABDOMEN: soft, nontender, no hepatosplenomegaly, no masses and bowel sounds normal MS: no musculoskeletal defects are noted and gait is age appropriate without ataxia SKIN: no suspicious lesions or rashes NEURO: Normal strength and tone, sensory exam grossly normal, mentation intact and speech normal PSYCH: mentation appears normal and affect normal/bright ATP III Guidelines FRAX Risk Assessment ICSI Preventive Guidelines ASSESSMENT/PLAN: V70.0 Routine general medical examination at a health care facility (primary encounter diagnosis) Comment: Stable health. See epic orders. Plan: Comprehensive metabolic panel, *UA reflex to Microscopic and Culture, CBC with platelets, TSH with free T4 reflex, Lipid panel reflex to direct LDL, Mammo Screening digital (bilat), PAP imaged thin layer, screen 389.9AN HL (hearing loss) Comment: Offered ENT consult. Plan: OTOLARYNGOLOGY REFERRAL 780.52A Insomnia Comment: Well controlled. Continue current meds. Plan: zolpidem (AMBIEN CR) 12.5 MG CR tablet 782.3 Edema Comment: Offered refill of Maxzide-25. Plan: triamterene-hydrochlorothiazide (MAXZIDE-25) 37.5-25 MG per tablet 723.1 Cervicalgia Comment: Refill Naproxen. Plan: naproxen (NAPROSYN) 500 MG tablet 784.0 Headache 782.62W Vasomotor flushing Comment: Continue Effexor. Plan: venlafaxine (EFFEXOR) 37.5 MG tablet V81.2LR CARDIOVASCULAR SCREENING; LDL GOAL LESS THAN 160 Comment: Update lipids. Plan: Comprehensive metabolic panel, Lipid panel reflex to direct LDL 278.00J Overweight Comment: We discussed nonpharmacologic factors in weight reduction, emphasizing the importance of proper eating habits (food choices and portion sizes) and routine exercise, and we discussed the potential benefits of a program such as Weight Watchers. Plan: TSH with free T4 reflex COUNSELING: regular exercise healthy diet/nutrition reports that she has never smoked. She does not have any smokeless tobacco history on file. There is no height or weight on file to calculate BMI. Weight management plan: Current exercise routine: walking. Established an exercise regimen with the patient. and Diet regimen was discussed. self-directed dieting and Weight Watchers, TOPS, or similar program documented in this encounter Nursing Notes 07/30/2011 2:15 PM CDT >> ROGELIO Briones July 30, 2011 2:19 PM Patient presents with: Physical - Need refill on ambien today--pt is leaving on vacation tomorrow and needs it-- and pap--pt is fasting Pre Visit Planning - Done Initial BP 124/68 Pulse 76 Temp(Src) 98.5 ??F (36.9 ??C) (Oral) Resp 16 Ht 5' 11 (1.803 m) Wt 216 lb 4.8 oz (98.113 kg) BMI 30.17 kg/m2 Estimated Body mass index is 30.17 kg/(m^2) as calculated from the following: Height as of this encounter: 5' 11(1.803 m). Weight as of this encounter: 216 lb 4.8 oz(98.113 kg).. BP completed using cuff size: large Rogelio Sadler AIRFRAME DESIGN ENGINEER documented in this encounter Plan of Treatment Scheduled Referrals Name Type Priority Associated Diagnoses Order S [facility] OTOLARYNGOLOGY REFERRAL Referral Routine HL (hearing loss) Ordered: 07/30/2011 documented as of this encounter Procedures Procedure Name Priority Date/Time Associated Comments Diagnosis PAP IMAGED THIN LAYER Routine 07/30/2011 5:21 PM Routine gener al Results for this SCREEN CDT medical examination procedur e are in at a health care the results facility section. URINE MICROSCOPIC Routine 07/30/2011 2:52 PM Resu lts for this CDT procedure are i n the results section. UA MACROSCOPIC WITH Routine 07/30/2011 2:52 PM Routine general Results for this REFLEX TO MICROSCOPIC CDT medical examination procedure are in AND CULTURE at a health care the results facility section. TSH WITH FREE T4 Routine 07/30/2011 2:52 PM Routine general Re sults for this REFLEX CDT medical examination procedur e are in at a [facility] the results facility section. Overweight LIPID REFLEX TO DIRECT Routine 07/30/2011 2:52 PM Routine gene ral Results for this LDL PANEL CDT medical examination procedur e are in at a health care the results facility section. CARDIOVASCULAR SCREENING; LDL GOAL LESS THAN 160 COMPREHENSIVE Routine 07/30/2011 2:52 PM Routine general Resul ts for this METABOLIC PANEL CDT medical examination proce dure are in at a health care the results facility section. CARDIOVASCULAR SCREENING; LDL GOAL LESS THAN 160 CBC WITH PLATELETS Routine 07/30/2011 2:52 PM Routine general Results for this CDT medical examination procedur e are in at a [facility] the results facility section. HPV SCR W REF TO ANGEL Routine 07/30/2011 12:00 Re sults for this ANAL PAP OR TISSUE AM CDT procedure are in the results section. documented in this encounter Results PAP imaged thin layer, screen (07/30/2011 5:21 PM CDT) Component Value Ref Test Analysis Performed At [facility] anywayanyday Range Method Time Signature PAP NIL COPATH Copath Report COPATH Patient Name: GLORIA GARCIA MR#: [id number] Specimen #: [id number] Collected: 07/30/2011 Received: 08/02/2011 Reported: 08/04/2011 07:45 Ordering Phy(s): IDANIA GRIMALDO SPECIMEN/STAIN PROCESS: Pap imaged thin layer prep screening (Surepath, FocalPoint w ith guided screening) ? Pap-Cyto x 1, Reflex HPV if ASCUS/NIL (>30 yo) x 1 SOURCE: Cervical, endocervical ---- Pap imaged thin layer prep screening (Surepath, FocalPoint with guided screening) SPECIMEN ADEQUACY: Satisfactory for evaluation. -Transformation zone component present. CYTOLOGIC INTERPRETATION: Negative for Intraepithelial Lesion or Malignancy ? Organism(s): -Fungal organisms morphologically consistent with [place] sp p. Electronically signed out by: ALEXANDRE Monge (ASCP) Processed and screened at [facility] CLINICAL HISTORY: Post Menopausal, Previous normal pap Date of Last Pap: 08-22-09, Papanicolaou Test Limitations: ??Cervical cytology is a scre ening test with limited sensitivity; regular screening is critical for cancer prevention; Pap tests are primarily effective for the diagnosis/prevention of squamous cell carcinoma, not adenoca rcinomas or other cancers. TESTING LAB LOCATION: [address] ??[id number] COLLECTION SITE: Client: ??[facility] Location: [facility] (R) Specimen (Source) Anatomical Collection Method Collection Time Re ceived Time Location / / Volume [place] Cytologic 07/30/2011 5:21 08/02/2011 material PM CDT 10:30 AM CDT (specimen) Idania Grimaldo MD LAB - OPTIME CLINICAL SPECIM EN Performing Organization Address City/State/ZIP Code Phon e Number [place] (ABNORMAL) Urine Microscopic (07/30/2011 2:52 PM CDT) Analysis Performed At Patho logist Time Signature WBC Urine O - 2 0 - 2 /HPF [facility] RBC Urine 2-5 (A) 0 - 2 /HPF [facility] Squamous Many (A) FEW /LPF [place] Epithelial /LPF [facility] Urine LAB Bacteria Urine Few (A) NEG /HPF [facility] Yeast Urine Few (A) NEG /HPF [facility] Specimen Anatomical Collection Method Collection Time Receive d Time (Source) Location / / Volume [place] 07/30/2011 2:52 PM 2 2:57 CDT PM CDT Idania Grimaldo MD LAB - URINE ORDERABLES Performing Organization Address City/[facility]/ZIP Code Phon e Number [facility] [address] [place], [place] [address] [address] [facility] (ABNORMAL) Lipid panel reflex to direct LDL (07/30/2011 2:52 PM CDT) athologist Signature Cholesterol 246 (H) 0 - 200 [facility] mg/dL CLINIC LAB Comment: LDL Cholesterol is the primary guide to therapy. The NCEP recommends further evaluation of: patients with cholesterol greater than 200 mg/dL if additional risk facto rs are present, cholesterol greater than 240 mg/dL, triglycerides greater than 1 50 mg/dL, or HDL less than 40 mg/dL. Triglycerides 169 (H) 0 - 150 mg/dL [facility] HDL Cholesterol 68 50 - 110 mg/dL [facility] LDL Cholesterol Calculated 144 (H) 0 - 129 mg/dL [facility] Comment: LDL Cholesterol is the primary guide to therapy: LDL-cholesterol goal in high risk patients is <100 mg/dL and in very high risk patients is <70 mg/dL. VLDL-Cholesterol 34 (H) 0 - 30 mg/dL [facility] Cholesterol/HDL Ratio 3.6 0.0 - 5.0 [facility] Specimen Anatomical Collection Method Collection Time Receive d Time (Source) Location / / Volume [place] Blood specimen 07/30/2011 2:52 PM 012 2:57 (specimen) CDT PM CDT Idania Grimaldo MD LAB - BLOOD ORDERABLES Performing Organization Address City/[facility]/ZIP Code Phon e Number [facility] [address] [place] [address] [facility] TSH with free T4 reflex (07/30/2011 2:52 PM CDT) athologist Signature TSH 1.26 0.4 - 5.0 [facility] mU/L [facility] Specimen Anatomical Collection Method Collection Time Receive d Time (Source) Location / / Volume [place] Blood specimen 07/30/2011 2:52 PM 012 2:57 (specimen) CDT PM CDT Idania Grimaldo MD LAB - BLOOD ORDERABLES Performing Organization Address City/[facility]/ZIP Code Phon e Number [facility] [address] [place] [address] [facility] CBC with platelets (07/30/2011 2:52 PM CDT) athologist Signature WBC 7.0 4.0 - 11.0 [place] 10e9/L [facility] RBC Count 4.19 3.8 - 5.2 [place] 10e12/L [facility] Hemoglobin 12.8 11.7 - [place] 15.7 g/dL [facility] Hematocrit 37.8 35.0 - [place] 47.0 % [facility] MCV 90 78 - 100 [facility] MCH 30.5 26.5 - [facility] 33.0 pg [facility] MCHC 33.9 31.5 - [place] 36.5 g/dL [facility] RDW 12.4 10.0 - [place] 15.0 % [facility] Platelet Count 273 150 - 450 [place] 10e9/L [facility] Specimen Anatomical Collection Method Collection Time Receive d Time (Source) Location / / Volume [place] Blood specimen 07/30/2011 2:52 PM 012 2:57 (specimen) CDT PM CDT Idania Grimaldo MD LAB - BLOOD ORDERABLES Performing Organization Address City/State/ZIP Code Phon e Number [facility] [address] [place], [place] [address] [address] [facility] (ABNORMAL) *UA reflex to Microscopic and Culture (07/30/2011 2:52 PM CDT) Patholo gist Method Time Signature Color Urine Yellow [facility] Appearance Urine Clear [facility] Glucose Urine Negative NEG mg/dL [facility] Bilirubin Urine Negative NEG [facility] Ketones Urine Negative NEG mg/dL [facility] Specific Enterprise >1.030 1.003 - [place] Urine 1.035 [facility] Blood Urine Large (A) NEG [facility] pH Urine 5.0 5.0 - 7.0 [place] pH [facility] Protein Albumin Trace (A) NEG mg/dL [place] Urine [facility] Urobilinogen 0.2 0.2 - 1.0 [place] Urine EU/dL [facility] Nitrite Urine Negative NEG [facility] Leukocyte Negative NEG [place] Esterase Urine [facility] Source Midstream [place] Urine [facility] Specimen Anatomical Collection Method Collection Time Receive d Time (Source) Location / / Volume [place] Urine specimen 07/30/2011 2:52 PM 012 2:57 (specimen) CDT PM CDT Idania Grimaldo MD LAB - URINE ORDERABLES Performing Organization Address City/State/ZIP Code Phon e Number [facility] [address] [place], [place] [address] [address] [facility] (ABNORMAL) Comprehensive metabolic panel (07/30/2011 2:52 PM CDT) athologist Signature Sodium 139 133 - 144 [place] mmol/L [facility] Potassium 3.7 3.4 - 5.3 [place] mmol/L [facility] Chloride 102 94 - 109 [place] mmol/L [facility] Carbon Dioxide 23 20 - 32 [place] mmol/L [facility] Anion Gap 14 6 - 17 [place] mmol/L [facility] Glucose 103 (H) 60 - 99 [place] mg/dL [facility] Urea Nitrogen 16 7 - 30 [place] mg/dL [facility] Creatinine 0.60 0.52 - [place] 1.04 mg/dL [facility] GFR Estimate >90 >60 [place] mL/min/1.7 [facility] m2 LAB GFR Estimate If >90 >60 [place] Black mL/min/1.7 [facility] m2 LAB Calcium 9.5 8.5 - 10.4 [place] mg/dL [facility] Bilirubin Total 0.7 0.2 - 1.3 [place] mg/dL [facility] Albumin 4.5 3.9 - 5.1 [place] g/dL [facility] Comment: Reference range changed on 11/13. Protein Total 8.4 6.8 - 8.8 g/dL [place] [facility] Comment: As of 07, reference range reflects plasma specimen type. Alkaline Phosphatase 109 40 - 150 U/L [facility] EW [facility] ALT 20 0 - 50 U/L [facility] IC LAB AST 26 0 - 45 U/L [facility] LAB Specimen Anatomical Collection Method Collection Time Receive d Time (Source) Location / / Volume [place] Blood specimen 07/30/2011 2:52 PM 012 2:57 (specimen) CDT PM CDT Idania Grimaldo MD LAB - BLOOD ORDERABLES Performing Organization Address City/State/ZIP Code Phon e Number [address] [address] [facility] HPV screen with reflex to genotype (07/30/2011 12:00 AM CDT) Component Value Ref Test Analysis Performed At [facility] Range Method Time Signature Copath Report Patient Name: GLORIA GARCIA MR#: [id number] Specimen #: [id number] Collected: 07/30/2011 00:00 Received: 08/05/2011 12:03 Reported: 08/12/2011 05:37 Ordering Phy(s): IDANIA GRIMALDO TEST(S) REQUESTED: Human Papillomavirus Screen Analysis SPECIMEN DESCRIPTION: Cervical Cells METHODOLOGY: ??Total cellular DNA was extracted from the abo ve specimen and up to 1 ug subjected to DNA amplification with a series of oligonucleotide primers directed to the L1 region of the hum an papillomavirus genome. ??The resulting PCR fragments were th en by capillary electrophoresis using a [employer] with Bio Calculator software. ??The PCR products from samples positive for HPV D NA were then digested with a series of restriction endonuclease enzymes. ??The resulting pattern of bands corresponding to the digested DNA products were interpreted according to the corresponding HPV DNA cont rols. Amplification of a segment of the beta globin gene serves as an internal control of DNA amplification. RESULTS (L1 region): ? NEGATIVE FOR HPV DNA Final Diagnosis: This patient's sample is negative for HPV DNA. Diagnosis Comment: This patient's sample is negative for HPV DNA.These results do not rule out the presence of an occult HPV infection which is not det ected due to either sampling error, or sample procurement. This test was developed and its performance determined by [facility]. It has not been cleared or approved by the U.S. Food and Baljeet g Administration. ??The FDA has determined that such clearance or approval is not necessary. ??Pursuant to the requirements of CLIA' 88 , this laboratory has established and verified the test' s accuracy and precision. ??This test is used for clinical purposes. Electronically Signed Out By: SHANNAN Mail Handler TESTING LAB LOCATION: [address] [id number] COLLECTION SITE: Client: ??[facility] Location: ??[facility] (R) Specimen (Source) Anatomical Collection Method Collection Time Re ceived Time Location / / Volume Laterality 07/30/2011 08/05/2011 12:0 3 PM CDT Idania Grimaldo MD LAB - GENOMICS Performing Organization Address City/State/ZIP Code Phon e Number [place] documented in this encounter Visit Diagnoses Diagnosis Routine general medical examination at a health care facility - Primary HL (hearing loss) Unspecified hearing loss Insomnia Insomnia, unspecified Edema Cervicalgia Headache(784.0) Headache Vasomotor flushing Flushing UTERINE LEIOMYOMA NOS Leiomyoma of uterus, unspecified CARDIOVASCULAR SCREENING; LDL GOAL LESS THAN 160 Overweight Obesity, unspecified documented in this encounter Care Teams Banking Pin Adjuster Relationship Specialty Start Date End Date Idania Grimaldo MD PCP - General 07/07/07 02/24/14 documented as of this encounter
--- OUTSIDE RECORDS SUMMARY | 2021-12-03 11:11 | XMS_ITS | Encounter Summary ---
:1955 Author Organization [facility] Address [address] [place] [address] Care Team Providers Name Role Phone Vincenzo Grimaldo MD Primary Care Provider Reason for Visit Reason Onset Date Comments Refill Request 01/18/2012 tramadol Encounter Details Date Type Department Care Team Description 01/18/2012 Refill [facility] Vincenzo Grimaldo MD Refill Request Clinic [place] [address] (tramadol) [address] [place] [address] [place], [place] [phone] (Wo rk) [address] [phone] Social History Tobacco Use Types Packs/Day Years [...] this encounter Miscellaneous Notes Telephone Encounter - Points, Shani - 01/18/2012 1:52 PM CST Last refill 04/08/10 #60 with one refill,and last OV 10/11/11 LC for sore throat, 07/30/11 PG for routine PX. MD authorization required. Shani Pickering RN TES GRINDER Telephone Encounter - Amy Hatfield - 01/18/2012 10:32 AM CST Refill request from [facility] for: Tramadol Last O/V: 10/11/11 Last Refill: 04/08/10 TES GRINDER documented in this encounter Plan of Treatment Not on filedocumented as of this encounter Visit Diagnoses Diagnosis Cervicalgia - Primary Headache(784.0) Headache documented in this encounter Care Teams Special Machine Operator Relationship Specialty Start Date End Date Vincenzo Grimaldo MD PCP - General 07/07/07 02/24/14 documented as of this encounter
--- OUTSIDE RECORDS SUMMARY | 2021-12-03 11:11 | XMS_ITS | Encounter Summary ---
:1955 Author Organization [facility] Address [address] [place] [address] Care Team Providers Name Role Phone Vincenzo Grimaldo MD Primary Care Provider Reason for Visit Reason Onset Date Comments Lab Result Notice 10/04/2011 Large amt of blood i n urine Encounter Details Date Type Department Care Team Description 10/04/2011 Telephone [facility] Vincenzo Grimaldo MD Lab Result Notice Clinic [place] [address] (Large amt of blood in [address] [place] [address] urine) [place] [address] [place], [place] [phone] (Wo rk) [address] [phone] Social History Tobacco Use Types Packs/Day Years [...] Notes Telephone Encounter - Elizabeth Yanes - 10/05/2011 3:25 PM CDT Called pt and lmg on home vm. Telephone Encounter - Vincenzo Grimaldo MD - 10/05/2011 3:00 PM CDT Recommend starting out by rechecking a urine--ordered on epic. Please advise pt. Telephone Encounter - Karishma Moon - 10/04/2011 3:20 PM CDT I have had a resistant strain of strep that went into kidneys and caused bleeding while under the care of my previous physician, so hence my concern about blood in my urine. Telephone Encounter - Karishma Moon - 10/04/2011 3:13 PM CDT Pt is calling about her lab results because there is a large amount of blood in her urine. She is asking if something needs to be done about this. Should she have urine retested, or see specialist. documented in this encounter Plan of Treatment Not on filedocumented as of this encounter Visit Diagnoses Diagnosis Microscopic hematuria - Primary documented in this encounter Care Teams Wheel Truer Relationship Specialty Start Date End Date Vincenzo Grimaldo MD PCP - General 07/07/07 02/24/14 documented as of this encounter
--- OUTSIDE RECORDS SUMMARY | 2021-12-03 11:11 | XMS_ITS | Encounter Summary ---
:1955 Author Organization [place] Address [address] [place] [address] Care Team Providers Name Role Phone No Ref-Primary, Physician Primary Care Provider [phone] Encounter Details Date Type Department Care Team Description 07/27/2017 Hospital Encounter [facility] Magnolia Mckeon MD [facility] [address] [place] [address] Pre-operative [facility] Russell Maria MD [facility] [address] [place] [address] laboratory [address] [facility] [place] [address] Social History Tobacco Use Types [...] hours Status post total left knee replacement ACETAMINOPHEN PO Take 650 mg by mouth 0 08/17/2017 every 6 hours as needed for pain ASPIRIN PO Take 81 mg by mouth 0 08/17 daily mupirocin (BACTROBAN) 2 Apply into each nare 0 11/11/2021 % nasal ointment 2 times daily Apply small amount in each nare 2 times a day for 7 days prior to surgery naproxen (NAPROSYN) 500 Take 1 tablet (500 60 tablet 0 06/0 08/2017 11/11/2021 MG tabletIndications: mg) by mouth 2 times [...] tabletIndications: Status post total left knee replacement PROPRANOLOL HCL Take 120 mg by mouth 0 08/11/2017 POIndications: Essential daily Tremor senna-docusate Take 1-2 tablets by 60 tablet 0 08/17/2017 0 11/11/2021 (SENOKOT-S;PERICOLACE) mouth 2 times daily 8.6-50 MG per as needed for tabletIndications: constipation Status post total left knee replacement documented as of this encounter Plan of Treatment Not on filedocumented as of this encounter Procedures Procedure Name Priority Date/Time Associated Diagnosis Comme nts MRSA MSSA PCR, Routine 07/27/2017 9:10 AM Pre-operative Result s for this NASAL SWAB CDT laboratory procedure are i n examination the results section. documented in this encounter Results Methicillin Resist/Sens S. aureus PCR (07/27/2017 9:10 AM CDT) [facility] Method Time Signature Specimen Nares 07/27/2017 [place] Description 9:15 AM CDT [facility] Methicillin Negative NEG^Negat 07/27/2017 [facility] Resist/Sens S. kim 2:32 PM CDT IN MEDICAL aureus PCR [facility] Comment: MRSA Negative: SA Positive MRSA [...] colonizatio n. FDA approved assay performed using Novavax id GeneXpert(R) real-time PCR. Specimen (Source) Anatomical Collection Method Collection Time Re ceived Time Location / / Volume Laterality Nasal structure 07/27/2017 9:10 8 9:20 (body structure) AM CDT AM CDT Russell Maria MD LAB - MICRO GENERAL ORDERABL ES Performing Organization Address City/State/ZIP Code Phon e Number [address] [address] [facility] [address] [place] [id number] [facility] [phone] documented in this encounter Visit Diagnoses Diagnosis Pre-operative laboratory examination Pre-procedural laboratory examination documented in this encounter Care Teams Cassandra Architect Relationship Specialty Start Date End Date No Ref-Primary, Physician PCP - General 04/29/17 documented as of this encounter
--- OUTSIDE RECORDS SUMMARY | 2021-12-03 11:12 | XMS_ITS | Encounter Summary ---
:1955 Author Organization [place] Address [address] [place] [address] Care Team Providers Name Role Phone Vincenzo Grimaldo MD Primary Care Provider Reason for Visit Reason Onset Date Comments Refill Request 04/07/2010 zolpidem Encounter Details Date Type Department Care Team Description 04/07/[address] [facility] Vincenzo Grimaldo MD Refill Request Clinic [place] [address] (zolpidem ) [address] [place], [place] [id number] [phone] Social History Tobacco Use Types Packs/Day Years Used Date Never Smoker Alcohol Use Standard Drinks/Week Comments Yes 0 [...] this encounter Miscellaneous Notes Telephone Encounter - Gloria Figueroa - 04/07/2010 5:28 PM CST Rx for Ambien faxed to pharmacy. OR MECHANICAL ENGINEER Telephone Encounter - Vincenzo Grimaldo - 04/07/2010 4:57 PM CST Please fax written Rx. OR MECHANICAL ENGINEER Telephone Encounter - Pam Garcia - 04/07/2010 10:29 AM CST RF request from pharmacy for zolpidem. Last OV 08/21/09, last filled 03/11/10 qty 30. Unable to refill per SO protocol, to for auth. OR MECHANICAL ENGINEER documented in this encounter Plan of Treatment Not on filedocumented as of this encounter Visit Diagnoses Diagnosis Insomnia - Primary Insomnia, unspecified documented in this encounter Care Teams Computer Technician Relationship Specialty Start Date End Date Vincenzo Grimaldo MD PCP - General 07/07/07 02/24/14 documented as of this encounter
--- OUTSIDE RECORDS SUMMARY | 2021-12-03 11:12 | XMS_ITS | Encounter Summary ---
:1955 Author Organization [facility] Address [address] [place] [address] Care Team Providers Name Role Phone Vincenzo Grimaldo MD Primary Care Provider Reason for Visit Reason Onset Date Comments Refill Request 05/05/2010 zolpidem Encounter Details Date Type Department Care Team Description 05/05/2010 Refill [facility] Vincenzo Grimaldo MD Refill Request Clinic [place] [address] (zolpidem) [address] [place], [place] [id number] [phone] Social History Tobacco Use Types Packs/Day Years [...] this encounter Miscellaneous Notes Telephone Encounter - Britta Mena - 05/06/2010 10:54 AM CST Faxed Rx to [facility] in [place] as requested S ACCOUNT MANAGER Telephone Encounter - Vincenzo Grimaldo - 05/06/2010 10:44 AM CST Please fax written Rx. S ACCOUNT MANAGER Telephone Encounter - Husam July - 05/05/2010 2:28 PM CST pharmacy requesting refill, last fill 04/07/10 last OV 08/22/09 Rx needs to be printed, manually signed, and faxed to pharmacy [facility] fax# [phone] S ACCOUNT MANAGER documented in this encounter Plan of Treatment Not on filedocumented as of this encounter Visit Diagnoses Diagnosis Insomnia - Primary Insomnia, unspecified documented in this encounter Care Teams Physician In Private Practice Relationship Specialty Start Date End Date Vincenzo Grimaldo MD PCP - General 07/07/07 02/24/14 documented as of this encounter
--- OUTSIDE RECORDS SUMMARY | 2021-12-03 11:12 | XMS_ITS | Encounter Summary ---
:1955 Author Organization [facility] Address [address] [place] [address] Care Team Providers Name Role Phone Vincenzo Grimaldo MD Primary Care Provider Reason for Visit Reason Onset Date Comments Refill Request 08/31/2010 NAPROXEN Encounter Details Date Type Department Care Team Description 08/31/2010 Refill [facility] Vincenzo Grimlado MD Refill Request Clinic [place] [address] (NAPROXEN) [address] [place] [address] [place], [place] [phone] (Wo rk) [address] [phone] Social History Tobacco Use Types Packs/Day Years [...] this encounter Miscellaneous Notes Telephone Encounter - April Garcia - 09/07/2010 8:43 AM CDT Last labs: 08/22/09 Creatinine 0.72 Needs MD Damon, Pt is over due for OV and no future appointment scheduled. Telephone Encounter - Ting Gomez - 08/31/2010 9:35 AM CDT Refill request from [facility] pharmacy for: NAPROXEN Last O/V: 08/22/09 Last Refill: 12/08/09 documented in this encounter Plan of Treatment Not on filedocumented as of this encounter Visit Diagnoses Diagnosis Cervicalgia documented in this encounter Care Teams Canvassing Manager Relationship Specialty Start Date End Date Vincenzo Grimaldo MD PCP - General 07/07/07 02/24/14 documented as of this encounter
--- OUTSIDE RECORDS SUMMARY | 2021-12-03 11:12 | XMS_ITS | Encounter Summary ---
:1955 Author Organization [facility] Address [address] [place] [address] Care Team Providers Name Role Phone Vincenzo Grimaldo MD Primary Care Provider Reason for Visit Reason Onset Date Comments Refill Request 02/02/2010 imtiaz [place] Encounter Details Date Type Department Care Team Description 02/02/2010 Refill [facility] Vincenzo Grimaldo MD Refill Request (ambien Clinic [place] [address] [facility]) [address] [place], [place] [id number] [phone] Social History Tobacco Use Types Packs/Day Years [...] this encounter Miscellaneous Notes Telephone Encounter - Pao Mcbride - 02/03/2010 4:35 PM CST Faxed [facility] Telephone Encounter - Vincenzo Grimaldo - 02/03/2010 3:29 PM CST Please fax written Rx. HER SHAVER Telephone Encounter - Husam July - 02/02/2010 2:53 PM CST pharmacy requesting refill, last fill 01/01/10 last OV 08/22/09 Rx needs to be printed, manually signed, and faxed to pharmacy [facility] fax# [phone] HER SHAVER documented in this encounter Plan of Treatment Not on filedocumented as of this encounter Visit Diagnoses Diagnosis Insomnia - Primary Insomnia, unspecified documented in this encounter Care Teams Tax Technician Relationship Specialty Start Date End Date Vincenzo Grimaldo MD PCP - General 07/07/07 02/24/14 documented as of this encounter
--- OUTSIDE RECORDS SUMMARY | 2021-12-03 11:12 | XMS_ITS | Encounter Summary ---
:1955 Author Organization [facility] Address [address] [place] [address] Care Team Providers Name Role Phone Vincenzo Grimaldo MD Primary Care Provider Reason for Visit Reason Onset Date Comments Refill Request 11/09/2010 ZOLPIDEM Encounter Details Date Type Department Care Team Description 11/09/2010 Refill [facility] Vincenzo Grimaldo MD Refill Request Clinic [place] [address] (ZOLPIDEM) [address] [place] [address] [place], [place] [phone] (Wo rk) [address] [phone] Social History Tobacco Use Types Packs/Day Years [...] this encounter Miscellaneous Notes Telephone Encounter - Christiana Birmingham - 11/11/2010 11:19 AM CDT Faxed. Christiana Birmingham RN Telephone Encounter - Vincenzo Grimaldo MD - 11/11/2010 11:14 AM CDT Please fax written Rx. Telephone Encounter - Christiana Birmingham - 11/11/2010 9:59 AM CDT MD authorization required. Christiana Birmingham RN Telephone Encounter - Ting Gomez - 11/09/2010 3:40 PM CDT Refill request from [facility] pharmacy for: ZOLPIDEM Last O/V: 10/05/10 Last Refill: 10/09/10 documented in this encounter Plan of Treatment Not on filedocumented as of this encounter Visit Diagnoses Diagnosis Insomnia - Primary Insomnia, unspecified documented in this encounter Care Teams Gas Station Cashier Relationship Specialty Start Date End Date Vincenzo Grimaldo MD PCP - General 07/07/07 02/24/14 documented as of this encounter
--- OUTSIDE RECORDS SUMMARY | 2021-12-03 11:12 | XMS_ITS | Encounter Summary ---
:1955 Author Organization [facility] Address [address] [place] [address] Care Team Providers Name Role Phone Vincenzo Grimaldo MD Primary Care Provider Reason for Visit Reason Onset Date Comments Refill Request 09/09/2010 ZOLPIDEM Encounter Details Date Type Department Care Team Description 09/09/[address] [facility] Vincenzo Grimaldo MD Refill Request Clinic [place] [address] (ZOLPIDEM) [address] [place] [address] [place] [address] [place], [place] [phone] (Wo rk) [address] [phone] Social History Tobacco Use Types Packs/Day Years [...] Notes Telephone Encounter - Salvador Puckett - 09/09/2010 12:46 PM CDT Faxed to [facility] in [place] and pt notified. Telephone Encounter - Vincenzo Grimaldo - 09/09/2010 12:11 PM CDT Please fax written Rx. Telephone Encounter - April Garcia - 09/09/2010 8:30 AM CDT Medication requires MD auth. Please print RX and fax to pharmacy listed. Telephone Encounter - Ting Gomez - 09/09/2010 7:56 AM CDT Refill request from [facility] pharmacy for: ZOLPIDEM Last O/V: 08/22/09 Last Refill: 08/03/10 documented in this encounter Plan of Treatment Not on filedocumented as of this encounter Visit Diagnoses Diagnosis Insomnia - Primary Insomnia, unspecified documented in this encounter Care Teams Periodontist Relationship Specialty Start Date End Date Vincenzo Grimaldo MD PCP - General 07/07/07 02/24/14 documented as of this encounter
--- OUTSIDE RECORDS SUMMARY | 2021-12-03 11:12 | XMS_ITS | Encounter Summary ---
:1955 Author Organization [facility] Address [address] [place] [address] Care Team Providers Name Role Phone Vincenzo Grimaldo MD Primary Care Provider Encounter Details Date Type Department Care Team Description 01/30/2010 Therapy Visit [place] for [place]es We[place], [facility]) [place] Physical [facility] Therapy [address] Wilberto Haddad [facility]. [facility] [phone] [place], [place] [phone] Social History Tobacco Use Types Packs/Day Years [...] Name Priority Date/Time Associated Diagnosis Comme nts ZZC MANUAL THER Routine 01/30/2010 1:56 PM BILINGUAL ADMINISTRATIVE ASSISTANT Neck pain TECH,1+REGIONS,EA 15 MIN ZZC MECHANICAL TRACTION Routine 01/30/2010 1:56 PM BILINGUAL ADMINISTRATIVE ASSISTANT Neck pa in THERAPY documented in this encounter Visit Diagnoses Diagnosis Neck pain - Primary Cervicalgia documented in this encounter Care Teams Psychiatric Therapist Relationship Specialty Start Date End Date Vincenzo Grimaldo MD PCP - General 07/07/07 02/24/14 documented as of this encounter
--- OUTSIDE RECORDS SUMMARY | 2021-12-03 11:12 | XMS_ITS | Encounter Summary ---
:1955 Author Organization [facility] Address [address] [place] [address] Care Team Providers Name Role Phone Vincenzo Grimaldo MD Primary Care Provider Reason for Visit Reason Onset Date Comments Refill Request 10/09/2010 SILVESTREIEN Encounter Details Date Type Department Care Team Description 10/09/2010 Refill [facility] Vincenzo Grimaldo MD Refill Request (AMBIEN) Clinic [place] [address] [place] [address] [place], [place] [phone] (Wo rk) [address] [phone] Social History Tobacco Use Types Packs/Day Years [...] this encounter Miscellaneous Notes Telephone Encounter - Ting Gomez - 10/09/2010 1:31 PM CDT FAXED Telephone Encounter - Vincenzo Grimaldo - 10/09/2010 12:46 PM CDT Please fax written Rx. Telephone Encounter - April Garcia - 10/09/2010 11:43 AM CDT Medication requires MD auth. Please print RX and fax to pharmacy listed. Telephone Encounter - Ting Gomez - 10/09/2010 11:23 AM CDT Refill request from [facility] pharmacy for: ZOLPIDEM Last O/V: 10/05/10 Last Refill: 09/09/10 documented in this encounter Plan of Treatment Not on filedocumented as of this encounter Visit Diagnoses Diagnosis Insomnia - Primary Insomnia, unspecified documented in this encounter Care Teams Semi Conductor Assembler Relationship Specialty Start Date End Date Vincenzo Grimaldo MD PCP - General 07/07/07 02/24/14 documented as of this encounter
--- OUTSIDE RECORDS SUMMARY | 2021-12-03 11:12 | XMS_ITS | Encounter Summary ---
:1955 Author Organization [facility] Address [address] [place] [address] Care Team Providers Name Role Phone Vincenzo Grimaldo MD Primary Care Provider Encounter Details Date Type Department Care Team Description 09/07/2010 Therapy Visit [place] for Juan Perez, Neck pain ([facility] Athletic Medicine - [place], PT Dx) [place] Physical [facility] Therapy [address] Wilberto Haddad [facility]. [facility] [phone] [place], [place] [phone] Social History Tobacco Use Types Packs/Day [...] documented as of this encounter Progress Notes Nilam Winn - 11/19/2010 9:25 AM CDT See eval for DC as patient came 1x only. Kesha Lee - 09/08/2010 11:15 AM CDT Subjective: Pertinent medical history includes: Rheumatoid arthritis, osteoarthritis and overweight. Medical allergies: no. Current medications: Anti-inflammatory, pain medication, steroids and other (effxor, elton pro). 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 Patient is working in normal job without restrictions. Primary job tasks include: Prolonged standing. Barriers include: None as reported by patient. Red flags: Pain at rest/night. Objective: System Physical Exam General ROS Assessment/Plan: Nilam Winn - 09/07/2010 2:30 PM CDT Images from the original note were not included. Subjective: Gloria Bonilla is a 54 year old female with a cervical spine condition. Condition occurred with: Repetition/overuse. This is a chronic condition Patient returns to PT with continued c/o B neck pain. Had injections at [place] to her lower cervical/upper thoracic area ~3 weeks ago, no change in symptoms.Continues to have pain 7-8/10 at end of work day (hairdresser) and 4/10 constant. Was using home cervical traction. Taking Tramadol ~ 3xday and Ambien at night. Here today for instruction in TENS unit at home.. Patient reports pain: Mid cervical spine, cervical right side, cervical left side, upper thoracic and lower cervical spine. Pain is described as aching and stabbing and is constant and reported as 4/10and 8/10. Pain is worse in the P.M.. Symptoms are exacerbated by rotating head, looking up or down and other (end of work day) Relieved by: Tramadol. Since onset symptoms are gradually worsening. Special tests: MRI and x-ray. Previous treatment includes physical therapy. There was moderate improvementfollowing previous treatment. General health as reported by patient is good. Objective: Standing Alignment: Cervical/Thoracic: Forward head Shoulder/UE: Rounded shoulders Cervical/Thoracic Evaluation AROM: AROM Cervical: Flexion: WNL, pain B cervical spine Extension: WNL, pain B c-spine Rotation: Left: 50% loss, pain Right: 50%loss, pain Side Bend: Left: 25% loss, pain Right: 25% loss, pain Headaches: cervical HENT: Head: ROS Assessment/Plan: Patient is a 54 year old female with cervical complaints. Patient has the following significant findings with corresponding treatment plan. Diagnosis 1: Neck pain Pain - self management, education and home program Decreased ROM/flexibility - therapeutic exercise and home program Decreased strength - therapeutic exercise, therapeutic activities and home program Decreased proprioception - neuro re-education and therapeutic activities Inflammation - electric stimulation and TENS unit Impaired muscle performance - neuro re-education and home program Decreased function - therapeutic activities and home program Impaired posture - neuro re-education and home program Previous and current functional limitations: (See Goal Flow Sheet for this information) Short term and USP goals: (See Goal Flow Sheet for this information) Communication ability: Patient appears to be able to clearly communicate and understand verbal and written communication and follow directions correctly. Treatment Explanation - The following has been discussed with the patient: RX ordered/plan of care Anticipated outcomes Possible risks and side effects Recommend 1xvisit for home instruct TENS unit Rehab potential is good. Frequency: 1x visit Duration: for 1 visits Discharge Plan: Achieve all LTG. Independent in home treatment program. Reach maximal therapeutic benefit. Please refer to the daily flowsheet for treatment today, total treatment time and time spent performing 1:1 timed codes. documented in this encounter Plan of Treatment Not on filedocumented as of this encounter Procedures Procedure Name Priority Date/Time Associated Diagnosis [facility] Routine 09/07/2010 10:31 PM Neck pain STIMULATION CDT documented in this encounter Visit Diagnoses Diagnosis Neck pain - Primary Cervicalgia documented in this encounter Care Teams Circulation Man Relationship Specialty Start Date End Date Vincenzo Grimaldo MD PCP - General 07/07/07 02/24/14 documented as of this encounter
--- OUTSIDE RECORDS SUMMARY | 2021-12-03 11:12 | XMS_ITS | Encounter Summary ---
:1955 Author Organization [facility] Address [address] [place] [address] Care Team Providers Name Role Phone Vincenzo Grimaldo MD Primary Care Provider Reason for Visit Reason Onset Date Comments Orders 02/23/2010 Encounter Details Date Type Department Care Team Description 02/23/2010 Telephone [facility] Vincenzo Grimaldo MD Orders [place] [address] [place] [address] [place] [address] [phone] Social History Tobacco Use Types Packs/Day Years [...] Notes Telephone Encounter - Gloria Figueroa - 02/26/2010 5:00 PM CST Pt returning call. Advised of orders per Dr Grimaldo. Scheduled appt for [facility] tomorrow, 02/27/10 GRADER OPERATOR Telephone Encounter - Maday Elmore - 02/26/2010 2:15 PM CST Lm for Pt to call back. Maday Elmore MA GRADER OPERATOR Telephone Encounter - Vincenzo Grimaldo - 02/24/2010 2:32 PM CST Reviewed UA--do not believe that antibiotics are required. Ordered TSH, Free T4 and T3. Pt may set up a lab-only appt for this. Please advise pt. GRADER OPERATOR Telephone Encounter - Gloria Figueroa - 02/24/2010 9:38 AM CST Results of repeat UA done 02/23/10 in chart. Please advise. Pt wants to report she has been feeling cruddy for the past several months; is going through menopause and will be seeing Dr Card, OB today. She is concerned about her thyroid because she said she is the only adult in her family who still has a thyroid gland and is afraid the way she is feeling may have to do with thyroid. Last thyroid WNL in August; please advise if T3, T4 or TSH should be drawn at this time. Pt ph [phone] GRADER OPERATOR Telephone Encounter - Gloria Figueroa - 02/23/2010 10:52 AM CST Pt called requesting her lab results from 08/22/[address] Lincoln career orientation teacher at fax# [phone]. Informed pt that her labs did show large amt urine for UA. This was not addressed so may have inadvertenly been overlooked. Pt was here for Px and c/o flank pain at appt 08/22/09. --Advised repeat UA. Ordered and pt coming in this AM to lab. Please review and advise. She said sheoccasionally has flank pain. GRADER OPERATOR documented in this encounter Plan of Treatment Not on filedocumented as of this encounter Visit Diagnoses Diagnosis Microscopic hematuria - Primary Malaise Other malaise and fatigue Family history of hypothyroidism Family history of other endocrine and me tabolic diseases documented in this encounter Care Teams Associate Professor Of Counseling Relationship Specialty Start Date End Date Vincenzo Grimaldo MD PCP - General 07/07/07 02/24/14 documented as of this encounter
--- OUTSIDE RECORDS SUMMARY | 2021-12-03 11:12 | XMS_ITS | Encounter Summary ---
:1955 Author Organization [facility] Address [address] [place] [address] Care Team Providers Name Role Phone Vincenzo Grimaldo MD Primary Care Provider Reason for Visit Reason Onset Date Comments Refill Request 03/04/2010 Holly ASHFORD Encounter Details Date Type Department Care Team Description 03/04/[address] [facility] Vincenzo Grimaldo MD Refill Request ([facility] [place] [address] [facility] [address] [place] [address] [place], [place] [phone] (Wo rk) [address] [phone] Social History Tobacco Use Types Packs/Day Years [...] encounter Miscellaneous Notes Telephone Encounter - Nadine Puckett - 03/11/2010 10:10 AM CST Refaxed, pharmacy stating nothing received. Nadine Boone MA MILL OPERATOR Telephone Encounter - Pao Mcbride - 03/04/2010 10:42 AM CST Faxed. MILL OPERATOR Telephone Encounter - Vincenzo Grimaldo - 03/04/2010 10:30 AM CST Please fax written Rx. MILL OPERATOR Telephone Encounter - Gloria Figueroa - 03/04/2010 8:32 AM CST Pharm RF request for Holly ASHFORD, last filled 02/03/10. Medication requires MD authorization. Please print Rx; must then be signed by MD and Faxed to pharmacy listed: [facility] MILL OPERATOR documented in this encounter Plan of Treatment Not on filedocumented as of this encounter Visit Diagnoses Diagnosis Insomnia - Primary Insomnia, unspecified documented in this encounter Care Teams Occupational Health Professional Relationship Specialty Start Date End Date Vincenzo Grimaldo MD PCP - General 07/07/07 02/24/14 documented as of this encounter
--- OUTSIDE RECORDS SUMMARY | 2021-12-03 11:12 | XMS_ITS | Encounter Summary ---
:1955 Author Organization [place] Address [facility] [place] [address] Care Team Providers Name Role Phone Vincenzo Grimaldo MD Primary Care Provider Reason for Visit Reason Onset Date Comments Other 10/05/2010 Pt is having increas ed sxs GERD, heartburn, lump in throat Encounter Details Date Type Department Care Team Description 10/05/2010 Telephone [facility] Vincenzo Grimaldo MD Other (Pt is having Clinic [place] [address] increased sxs GERD, [address] [place]burn, [place] [address] throat) [place], [place] [phone] (Wo rk) [address] [phone] Social History Tobacco Use Types Packs/Day Years [...] this encounter Miscellaneous Notes Telephone Encounter - Karishma Moon - 10/05/2010 11:06 AM CDT Pt is calling because she has almost fainted, gets dizzy when standing up, and had rash on body thatturned into bruises. She takes Aleve, but has stopped last few days because she is so nauseated. Given appt with TAG PRESS OPERATOR, Kate Murphy this am. documented in this encounter Plan of Treatment Not on filedocumented as of this encounter Visit Diagnoses Not on filedocumented in this encounter Care Teams Technical Consultant Relationship Specialty Start Date End Date Vincenzo Grimaldo MD PCP - General 07/07/07 02/24/14 documented as of this encounter
--- OUTSIDE RECORDS SUMMARY | 2021-12-03 11:12 | XMS_ITS | Encounter Summary ---
:1955 Author Organization [place] Address [facility] [place] [address] Care Team Providers Name Role Phone Vincenzo Grimaldo MD Primary Care Provider Arias Salvador MD Primary Care Provider No Ref-Primary, Physician Primary Care Provider Reason for Visit Reason Onset Date Comments Refill Request 04/07/2010 Tramadol Encounter Details Date Type Department Care Team Description 04/07/2010 Refill [facility] Vincenzo Grimaldo MD Refill Request Clinic [place] [address] (Tramadol) [address] [place] [address] [place], [place] [phone] (Wo rk) [address] [phone] Social History Tobacco Use Types Packs/Day Years [...] Telephone Encounter - Gloria Figueroa - 04/07/2010 5:29 PM CST Pharm RF request for Tramadol. Last filled 01/14/10. authorization required. S AND MARKETING MANAGER documented in this encounter Plan of Treatment Not on filedocumented as of this encounter Visit Diagnoses Diagnosis Cervicalgia Headache(784.0) Headache documented in this encounter Care Teams Associate Engineer Relationship Specialty Start Date End Date Vincenzo Grimaldo MD PCP - General 07/07/07 02/24/14 Arias Salvador MD PCP - General 02/25/14 04/28/17 [facility] [address] [place] [address] No Ref-Primary, Physician PCP - General 04/29/17 documented as of this encounter
--- OUTSIDE RECORDS SUMMARY | 2021-12-03 11:12 | XMS_ITS | Encounter Summary ---
:1955 Author Organization [place] Address [address] [place] [address] Care Team Providers Name Role Phone Vincenzo Grimaldo MD Primary Care Provider Encounter Details Date Type Department Care Team Description 04/27/2010 Results Only [facility] Abel Card MD Hospital Results [facility] OBGYN CONSULTS [address] [place], [place] [phone] (Wo rk) Social History Tobacco Use Types [...] Associated Diagnosis Comme nts MA SCREENING Routine 04/27/2010 12:08 PM Results for this DIGITAL BILATERAL REHABILITATION TEACHER procedure are in the results section. documented in this encounter Results Mammo Screening digital (bilat) (04/27/2010 12:08 PM REHABILITATION TEACHER) Specimen (Source) Anatomical Collection Method Collection Time Re ceived Time Location / / Volume Laterality 04/27/2010 12:08 PM REHABILITATION TEACHER Impressions RADIOLOGY RESULTS - 04/27/2010 12:48 PM REHABILITATION TEACHER SCREENING MAMMOGRAPHY, BILATERAL, DIGITA L w/CAD ??April ??2010. HISTORY/COMPARISON: ??07/12/2008, 8 BREAST PARENCHYMAL PATTERN: ??Mild paren chymal densities. FINDINGS: ??The right mammogram is unrem arkable. Mild stable asymmetric densities in the upper-outer left breast . A portion of this density is explained by a small flat cyst seen on u ltrasound in July 2008. No new or worrisome findings. IMPRESSION: ??BI-RADS 2, BENIGN. Abel Card MD IMG MAMMOGRAPHY ORDERABLES Performing Organization Address City/State/ZIP Code Phon e Number RADIOLOGY RESULTS documented in this encounter Visit Diagnoses Not on filedocumented in this encounter Care Teams Tannery Worker Relationship Specialty Start Date End Date Vincenzo Grimaldo MD PCP - General 07/07/07 02/24/14 documented as of this encounter
--- OUTSIDE RECORDS SUMMARY | 2021-12-03 11:12 | XMS_ITS | Encounter Summary ---
:1955 Author Organization [place] Address [address] [place] [address] Care Team Providers Name Role Phone Vincenzo Grimaldo MD Primary Care Provider Reason for Visit Reason Onset Date Comments Refill Request 02/09/2011 Refill for Maxzide Encounter Details Date Type Department Care Team Description 02/09/2011 Refill [facility] Vincenzo Grimaldo MD Refill Request (Refill [facility] [place] [address] [facility] for Maxzide) [address] [place] [address] [place], [place] [phone] (Wo rk) [address] [phone] Social History Tobacco Use Types Packs/Day Years [...] this encounter Miscellaneous Notes Telephone Encounter - Vincenzo Grimaldo MD - 02/09/2011 3:25 PM CST Needs appt. Please advise pt. Faxed #[phone] to her pharmacy. ING LOT ATTENDANT AND CASHIER Telephone Encounter - Elizabeth Yanes - 02/09/2011 1:25 PM CST Potassium Date Value Range Status 10/05/2010 4.3 3.4-5.3 (mmol/L) Final Creatinine Date Value Range Status 10/05/2010 1.15* 0.52-1.04 (mg/dL) Final LBP 132/84 MD approval required d/t abnormal Cr level Please advise ING LOT ATTENDANT AND CASHIER Telephone Encounter - Shruthi Watson - 02/09/2011 12:14 PM CST Refill request from pharmacy. Last ov:10-05-10 Last fill:09-28-10 Last b/p BP Readings from Last 1 Encounters: 04/14/2010 : 130/75 Last A1C 7.8 05/14/2008 A1C 6.5 02/18/2007 Last No results found for this basename: Cr:1] Last No results found for this basename: potassium:1] Last Last PHQ-9 score on record= 9 Last LDL Cholesterol Calculated (mg/dL) Date Value Low High Status 11/28/2007 112 Final ] Last No results found for this basename: alt:1 Shruthi Watson, Station Coordinator ING LOT ATTENDANT AND CASHIER documented in this encounter Plan of Treatment Not on filedocumented as of this encounter Visit Diagnoses Diagnosis Edema - Primary documented in this encounter Care Teams Pumper Hand Relationship Specialty Start Date End Date Vincenzo Grimaldo MD PCP - General 07/07/07 02/24/14 documented as of this encounter
--- OUTSIDE RECORDS SUMMARY | 2021-12-03 11:12 | XMS_ITS | Encounter Summary ---
:1955 Author Organization [place] Address [address] [place] [address] Care Team Providers Name Role Phone Vincenzo Grimaldo MD Primary Care Provider Reason for Visit Reason Comments Medication Request needed to be seen, Encounter Details Date Type Department Care Team Description 02/26/2011 Office Visit [facility] Vincenzo Grimaldo MD Insomnia (Primary Dx); Clinic [place] [address] Generalised anxiety disorder ; [address] Menopausal syndrome (hot flashes) [place] [address] [phone] Social History Tobacco Use Types Packs/Day Years [...] Sign Reading Time Taken Comments Blood Pressure 134/80 02/26/2011 2:22 PM RESIDENTIAL CONCIERGE Pulse 72 02/26/2011 2:22 PM RESIDENTIAL CONCIERGE Temperature 36.5 ??C (97.7 ??F) 02/26/2011 2:22 PM RESIDENTIAL CONCIERGE Respiratory Rate - - Oxygen Saturation - - Inhaled Oxygen Concentration - - Weight 99.8 kg (220 lb 1.6 oz) 02/26/2011 2:22 PM RESIDENTIAL CONCIERGE Height - - Body Mass Index 32.04 10/05/2010 11:05 AM CDT documented in this encounter Patient Instructions Patient InstructionsVincenzo Grimaldo MD - 02/26/2011 2:47 PM CST See me back in a year, sooner if problems. DENTIAL CONCIERGE documented in this encounter Progress Notes Vincenzo Grimaldo MD - 02/26/2011 3:39 PM CST Gloria Bonilla presents for f/u of anxiety, insomnia, hot flashes. She continues to take Effexor as prescribed by Dr Card for hot flashes. This has not been used foranxiety. She has tried to reduce her use of Ambien CR for chronic insomnia, but has found this to be needed fairly regularly. Refills are offered. OBJECTIVE: Well-appearing middle-aged female in no distress. BP 134/80 Pulse 72 Temp(Src) 97.7 ??F (36.5 ??C) (Oral) Wt 220 lb 1.6 oz (99.837 kg) Psych: The patient is casually dressed, well-groomed, with good eye contact. No psychomotor disturbance. Speech shows normal rate and rhythm. ASSESSMENT/PLAN: 780.52A Insomnia (primary encounter diagnosis) Comment: Good response to Ambien CR. Try using OTC measures more often as possible. Plan: zolpidem (AMBIEN CR) 12.5 MG CR tablet 300.02H Generalised anxiety disorder Comment: Stable control. Plan: General Anxiety Disorder Questionnaire (VINCE) 627.2E Menopausal syndrome (hot flashes) Comment: Continue Effexor. Follow-up with me in a year, call or schedule a follow-up appointment sooner if any problems. DENTIAL CONCIERGE documented in this encounter Nursing Notes 02/26/2011 2:15 PM CST >> KOSTAS OLIAVRES Anali Feb 26, 2011 2:44 PM Patient presents with: Medication Request - needed to be seen, having episodes of lightheadedness, Initial BP 144/82 Pulse 72 Temp(Src) 97.7 ??F (36.5 ??C) (Oral) Wt 220 lb 1.6 oz (99.837 kg) Estimated Body mass index is 32.04 kg/(m^2) as calculated from the following: Height as of 10/05/10: 5' 9.5(1.765 m). Weight as of this encounter: 220 lb 1.6 oz(99.837 kg).. BP completed using cuff size: large documented in this encounter Plan of Treatment Not on filedocumented as of this encounter Visit Diagnoses Diagnosis Insomnia - Primary Insomnia, unspecified Generalised anxiety disorder Generalized anxiety disorder Menopausal syndrome (hot flashes) Symptomatic menopausal or female climact sidra states documented in this encounter Care Teams Awning Finisher Relationship Specialty Start Date End Date Vincenzo Grimaldo MD PCP - General 07/07/07 02/24/14 documented as of this encounter
--- OUTSIDE RECORDS SUMMARY | 2021-12-03 11:12 | XMS_ITS | Encounter Summary ---
:1955 Author Organization [place] Address [address] [place] [address] Care Team Providers Name Role Phone Vincenzo Grimaldo MD Primary Care Provider Reason for Referral Specialty Diagnoses / Procedures Referred By Contact Refer red To Contact [facility] [address] [facility] [address] [place] [phone] Referral ID Status Reason Start Date Expiration Date Visits Requ ested Visits Authorized Encounter Details Date Type Department Care Team Description 10/15/2010 Orders Only [facility] Abstract, Provider DIAG NOSIS NOT YET [facility] DEFINED (Primary Dx) [address] [place] [id number] Social History Tobacco Use Types Packs/Day [...] Name Priority Date/Time Associated Diagnosis Comme nts WILL BE RETIRED - OLD PAIN Routine 10/15/2010 DIAGNOSIS NOT YET DEFINED MANAGEMENT REFERRAL documented in this encounter Results PAIN MANAGEMENT EXTERNAL REFERRAL (10/15/2010) Narrative This result has an attachment that is no t available. Provider Abstract REFERRAL documented in this encounter Visit Diagnoses Diagnosis DIAGNOSIS NOT YET DEFINED - Primary documented in this encounter Care Teams Tie Inspector Relationship Specialty Start Date End Date Vincenzo Grimaldo MD PCP - General 07/07/07 02/24/14 documented as of this encounter
--- OUTSIDE RECORDS SUMMARY | 2021-12-03 11:12 | XMS_ITS | Encounter Summary ---
:1955 Author Organization [place] Address [address] [place] [address] Care Team Providers Name Role Phone Vincenzo Grimaldo MD Primary Care Provider Reason for Visit Reason Onset Date Comments Forms 02/03/2010 Encounter Details Date Type Department Care Team Description 02/03/[address] [facility] Vincenzo Grimaldo MD Forms [place] [address] [facility] [address] [place] [address] [place] [address] [phone] Social History Tobacco Use Types Packs/Day Years [...] Notes Telephone Encounter - Pao Mcbride - 02/10/2010 1:20 PM CST Forms faxed to [facility] AND LACQUER MIXER Telephone Encounter - Danielle Chin - 02/03/2010 3:01 PM CST Form on Doctors desk. [facility] E[facility] AND LACQUER MIXER documented in this encounter Plan of Treatment Not on filedocumented as of this encounter Visit Diagnoses Not on filedocumented in this encounter Care Teams Software Programmer Relationship Specialty Start Date End Date Vincenzo Grimaldo MD PCP - General 07/07/07 02/24/14 documented as of this encounter
--- OUTSIDE RECORDS SUMMARY | 2021-12-03 11:12 | XMS_ITS | Encounter Summary ---
:1955 Author Organization [facility] Address [address] [place] [address] Care Team Providers Name Role Phone Vincenzo Grimaldo MD Primary Care Provider Reason for Visit Reason Onset Date Comments Refill Request 01/12/2011 imtiaz Encounter Details Date Type Department Care Team Description 01/12/2011 Refill [facility] Vincenzo Grimaldo MD Refill Request (ambien) [facility] [place] [address] [facility] 303 [facility] 160 [place] [address] [place], [place] [phone] (Wo rk) [address] [phone] Social History Tobacco Use Types Packs/Day Years [...] Notes Telephone Encounter - Salvador Puckett - 01/13/2011 2:57 PM CDT Faxed to [employer] in [place]. Gale Puckett MA Telephone Encounter - Vincenzo Grimaldo MD - 01/13/2011 12:40 PM CDT Please fax written Rx. Telephone Encounter - Elizabeth Yanes - 01/12/2011 2:23 PM CDT Refill request for imtiaz [place] 10/05/10 saw Donna Murphy 08/22/[address] Dillan GRULLON approval required Rx needs to be printed, signed and hand faxed Please advise documented in this encounter Plan of Treatment Not on filedocumented as of this encounter Visit Diagnoses Diagnosis Insomnia - Primary Insomnia, unspecified documented in this encounter Care Teams National Sales Director Relationship Specialty Start Date End Date Vincenzo Grimaldo MD PCP - General 07/07/07 02/24/14 documented as of this encounter
--- OUTSIDE RECORDS SUMMARY | 2021-12-03 11:12 | XMS_ITS | Encounter Summary ---
:1955 Author Organization [place] Address [address] [place] [address] Care Team Providers Name Role Phone Vincenzo Grimaldo MD Primary Care Provider Encounter Details Date Type Department Care Team Description 02/02/2010 Therapy Visit [place] for Juan Ritterparesh, Neck pain ([facility] Athletic Medicine - Nilam, PT Dx) [place] Physical [facility] Therapy [address] Wilberto Salazar. [address] [place], [place] [phone] Social History Tobacco Use Types Packs/Day [...] documented as of this encounter Progress Notes Juan Perez Nilam - 02/02/2010 2:28 PM CST Subjective: HPI Objective: System Physical Exam General ROS Assessment/Plan: PROGRESS REPORT Progress reporting period is from 12-26-09 to 02-02-10. SUBJECTIVE Subjective changes noted by patient: . Subjective: Overall reports moving in the right direction. Good and bad days. JARA gone but still soreness in R lower cervical/CTJ. Good relief with traction. 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 Current pain level is Current Pain level: 5/10. Previous pain level was Initial Pain level: 8/10. Changes in function: Yes (See Goal flowsheet attached for changes in current functional level) Adverse reaction to treatment or activity: None OBJECTIVE Changes noted in objective findings: Objective: Request add orders +6 and go to 1xweek. Also instructed/issued home cervical traction unit. CROM min loss with R rotation and extension. ASSESSMENT/PLAN Updated problem list and treatment plan: Diagnosis 1: Neck pain Pain - US, mechanical traction, manual therapy, self management and home program Decreased ROM/flexibility - manual therapy and therapeutic exercise Decreased joint mobility - manual therapy and therapeutic exercise Decreased strength - therapeutic exercise and therapeutic activities Decreased proprioception - neuro re-education and therapeutic activities Impaired muscle performance - neuro re-education Decreased function - therapeutic activities STG/LTGs have been met or progress has been made towards goals: Yes (See Goal flow sheet completed today.) Assessment of Progress: The patient's condition is improving. Self Management Plans: Patient has been instructed in a home treatment program. Patient has been instructed in self management of symptoms. Gloria continues to require the following intervention to meet STG and LTG's: PT Recommendations: This patient would benefit from continued therapy. Frequency: 1 X week Duration: for 4-6 weeks Please refer to the daily flowsheet for treatment today, total treatment time and time spent performing 1:1 timed codes. ER DEPOSITOR documented in this encounter Plan of Treatment Not on filedocumented as of this encounter Procedures Procedure Name Priority Date/Time Associated Diagnosis Comme nts ZZC MANUAL THER Routine 02/02/2010 2:26 PM BATTER DEPOSITOR Neck pain TECH,1+REGIONS,EA 15 MIN ZZC THERAPEUTIC Routine 02/02/2010 2:26 PM BATTER DEPOSITOR Neck pain ACTIVITIES ZZC MECHANICAL TRACTION Routine 02/02/2010 2:26 PM BATTER DEPOSITOR Neck pa in THERAPY documented in this encounter Visit Diagnoses Diagnosis Neck pain - Primary Cervicalgia documented in this encounter Care Teams Centrifugal Screen Tender Relationship Specialty Start Date End Date Vincenzo Grimaldo MD PCP - General 07/07/07 02/24/14 documented as of this encounter
--- OUTSIDE RECORDS SUMMARY | 2021-12-03 11:12 | XMS_ITS | Encounter Summary ---
:1955 Author Organization [place] Address [address] [place] [address] Care Team Providers Name Role Phone Vincenzo Grimaldo MD Primary Care Provider Reason for Visit Reason Onset Date Comments Refill Request 03/29/2011 Triamterene/Hctz Encounter Details Date Type Department Care Team Description 03/29/2011 Refill [facility] Vincenzo Grimaldo MD Refill Request Clinic [place] [address] [facility] (Triamterene/Hctz) [address] [place] [address] [place] [address] [place], [place] [phone] (Wo rk) [address] [phone] Social History Tobacco Use Types Packs/Day Years [...] this encounter Miscellaneous Notes Telephone Encounter - Ed Weiner - 03/29/2011 8:49 AM CST Pharmacy request refill of Triamterene/Hctz. Last OV 02/26/2011, BP 134/80 Last labs: 10/05/10, K+, 4.3, Cr, 1.15. Authorized Refills Per SO Protocol LINE CONSTRUCTION INSPECTOR documented in this encounter Plan of Treatment Not on filedocumented as of this encounter Visit Diagnoses Diagnosis Edema - Primary documented in this encounter Care Teams Technology Strategist Relationship Specialty Start Date End Date Vincenzo Grimaldo MD PCP - General 07/07/07 02/24/14 documented as of this encounter
--- OUTSIDE RECORDS SUMMARY | 2021-12-03 11:12 | XMS_ITS | Encounter Summary ---
:1955 Author Organization [facility] Address [address] [place] [address] Care Team Providers Name Role Phone Vincenzo Grimaldo MD Primary Care Provider Reason for Visit Reason Onset Date Comments Refill Request 01/29/2011 zolpidem Encounter Details Date Type Department Care Team Description 01/29/[address] [facility] Vincenzo Grimaldo MD Refill Request Clinic [place] [address] (zolpidem) [address] [place] [address] [place] [address] [place], [place] [phone] (Wo rk) [id number] [phone] Social History Tobacco Use Types Packs/Day Years [...] Notes Telephone Encounter - Salvador Puckett - 02/11/2011 2:12 PM CST Message relayed to pt, pt scheduling a medication follow up with PCP. Gale Puckett MA ESTATE PROFESSOR Telephone Encounter - Vincenzo Grimaldo MD - 02/10/2011 2:35 PM CST Left voice mail message for patient. Advised her that she does not have to see me for a physical exam, particularly if she has received this at [facility] recently, but that if I am to be the prescribing physician for her medications, particularly for Ambien, that I need to see her at least once a year in the office for a med check. Advised her that I could fill another 30-day supply at this time, but that I would not be able to continue to do this month after month without a med check appointment with me. Please fax Rx. ESTATE PROFESSOR Telephone Encounter - Elizabeth Yanes - 02/10/2011 9:32 AM CST Pt calls back and was told to schedule appt OV appt since she has not seen PCP since 08/2009. Pt states that she just saw Eamon GRULLON for PE and insurance will not pay for another PE. Told pt that this appt is for med refill and pt needs to see [facility] PCP yearly for refills. Pt declined to schedule appt. Pt states that she talked to someone but cannot remember name of nurse that said we would refill Ambien because she saw Eamon GRULLON. Again, informed pt that she needs to be seen yearly. Pt asked that msg be routed to PCP. Please advise. ESTATE PROFESSOR Telephone Encounter - Vincenzo Grimaldo MD - 02/02/2011 3:24 PM CST Needs appt to discuss--last saw her in August 2009. Please advise pt. ESTATE PROFESSOR Telephone Encounter - Elizabeth Yanes - 01/29/2011 8:11 AM CST Pharmacy sent over early refill request for Ambien Pharmacy states that pt told them that she thinks she threw medication accidentally away in trash CHARLI 10/05/10 saw Blanca Murphy 08/22/[address] Dillan HERNANDEZ 01/12/11 #30 no refills approval required Please advise ESTATE PROFESSOR documented in this encounter Plan of Treatment Not on filedocumented as of this encounter Visit Diagnoses Diagnosis Insomnia - Primary Insomnia, unspecified documented in this encounter Care Teams Prekindergarten Teacher Relationship Specialty Start Date End Date Vincenzo Grimaldo MD PCP - General 07/07/07 02/24/14 documented as of this encounter
--- OUTSIDE RECORDS SUMMARY | 2021-12-03 11:12 | XMS_ITS | Encounter Summary ---
:1955 Author Organization [facility] Address [address] [place] [address] Care Team Providers Name Role Phone Vincenzo Grimaldo MD Primary Care Provider Reason for Visit Reason Onset Date Comments Medication Request 11/30/2010 Encounter Details Date Type Department Care Team Description 11/30/2010 Telephone [facility] Vincenzo Grimaldo MD Medication Request [place] [address] [address] [place] [address] [place], [place] [phone] (Wo rk) [phone] Social History Tobacco Use Types Packs/Day Years [...] encounter Miscellaneous Notes Telephone Encounter - Nadine Wheeler - 11/30/2010 1:11 PM CDT Gloria is calling. She says that she has pinkeye. Her eye is swollen shut, she was able to get it open with warm soaks, but she is continuing to have weepydrainage and her eye is reddened. She is asking for an antibiotic eyedrop to be sent to the [facility] pharmacy. 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 Nadine Blum RN FNA documented in this encounter Plan of Treatment Not on filedocumented as of this encounter Visit Diagnoses Not on filedocumented in this encounter Care Teams Timber Treatment Plant Operator Relationship Specialty Start Date End Date Vincenzo Grimaldo MD PCP - General 07/07/07 02/24/14 documented as of this encounter
--- OUTSIDE RECORDS SUMMARY | 2021-12-03 11:12 | XMS_ITS | Encounter Summary ---
:1955 Author Organization [facility] Address [address] [facility] [place] [address] Care Team Providers Name Role Phone Vincenzo Grimaldo MD Primary Care Provider Reason for Visit Reason Comments Dizziness started 5 days ago, light he aded, room spinning, ears are ringing. BP check @ home 90/ 60. Bleeding/Bruising bruising and itching around lower abdomen. Pre Visit Planning - Done Encounter Details Date Type Department Care Team Description 10/05/2010 Office Visit [facility] Kate Murphy Vertigo, benign Clinic [place] MING Linares positional (Primary [address] [place] [address]) [place] [id number] [phone] Social History Tobacco Use Types Packs/Day Years [...] Sign Reading Time Taken Comments Blood Pressure 132/84 10/05/2010 11:05 AM CDT Pulse 80 10/05/2010 11:05 AM CDT Temperature 36.9 ??C (98.4 ??F) 10/05/2010 11:05 AM CDT Respiratory Rate 16 10/05/2010 11:05 AM CDT Oxygen Saturation - - Inhaled Oxygen Concentration - - Weight 97.7 kg (215 lb 4.8 oz) 10/05/2010 11:05 AM CDT Height 176.5 cm (5' 9.5) 10/05/2010 11:05 AM CDT Body Mass Index 31.34 10/05/2010 11:05 AM CDT documented in this encounter Patient Instructions Patient InstructionsKate Murphy - 10/05/2010 11:32 AM CDT meclizide OTC Labs pending Hydrate, Hydrate, Hydrate. Kate Murphy CNP documented in this encounter Progress Notes Kate Murphy - 10/05/2010 11:53 AM CDT .SUBJECTIVE: Gloria Diggs Chad, a 54 year old female scheduled an appointment to discuss the following issues: VERTIGO, BENIGN POSITIONAL Began 3-4 days ago. Feels lightheaded, wobbly, slightly nausea, no vomiting. Afebrile, no sweats, chills or recent illness. Added lidocaine patch last week per pain provider at [facility]. Used on twice, while at work standing for long hours. Pt frequently does not drink in enoughwater, urine has been darker yellow. Tuesday a glass of wine did not improve sx, Sat a glass of Koolaid did. took BP at home, 90s/60s. States one of my medications has been causing itchy red bumps on abdomen and she has been scratching a lot with her long artifical nails, causing the bruising. Rash has resolved, bruising fading. Medical, social, surgical, and family histories reviewed. ROS: C: NEGATIVE for fever, chills E: NEGATIVE for vision changes R: NEGATIVE for significant cough or SOB CV: NEGATIVE for chest pain, palpitations GI: NEGATIVE for nausea, abdominal pain, heartburn, or change in bowel habits : NEGATIVE for frequency, dysuria, or hematuria M: NEGATIVE for significant arthralgias or myalgia OBJECTIVE: BP 132/84 Pulse 80 Temp(Src) 98.4 ??F (36.9 ??C) (Oral) Resp 16 Ht 5' 9.5 (1.765 m) Wt 215 lb 4.8 oz (97.659 kg) BMI 31.34 kg/m2 EXAM: GENERAL APPEARANCE: healthy, alert GENERAL APPEARANCE: tearfull EYES: EOMI, PERRL HENT: ear canals and TM's normal and nose and mouth without ulcers or lesions NECK: no adenopathy, no asymmetry, masses, or scars and thyroid normal to palpation RESP: lungs clear to auscultation - no rales, rhonchi or wheezes CV: regular rates and rhythm, normal S1 S2, no S3 or S4 and no murmur, click or rub - ABDOMEN: soft, nontender, no HSM or masses and bowel sounds normal SKIN: extensive resolving bruises, pale purple to light yellow, 8-12 areas all < 3 cm diameter. PSYCH: mentation appears normal and affect normal/bright ASSESSMENT/PLAN: 386.11S Vertigo, benign positional (primary encounter diagnosis) Comment: suspect positional vertigo mild dehydration or topical lidocaine patch Plan: CBC with platelets, Basic metabolic panel, TSH Labs pending OTC meclizine, increase hydration. F/U pending results. Kate Murphy STEMMER MACHINE documented in this encounter Nursing Notes 10/05/2010 11:00 AM CDT >> GIRMA CISNEROS Mon Oct 05, 2010 11:09 AM Patient presents with: Dizziness - started 5 days ago, light headed, room spinning, ears are ringing. BP check @ home 90/60. Bleeding/Bruising - bruising and itching around lower abdomen. Pre Visit Planning - Done Initial BP 132/84 Pulse 80 Temp(Src) 98.4 ??F (36.9 ??C) (Oral) Resp 16 Ht 5' 9.5 (1.765 m) Wt 215 lb 4.8 oz (97.659 kg) BMI 31.34 kg/m2 Estimated Body mass index is 31.34 kg/(m^2) as calculated from the following: Height as of this encounter: 5' 9.5(1.765 m). Weight as of this encounter: 215 lb 4.8 oz(97.659 kg).. BP completed using cuff size: large documented in this encounter Plan of Treatment Not on filedocumented as of this encounter Procedures Procedure Name Priority Date/Time Associated Diagnosis Comme nts TSH Routine 10/05/2010 11:40 AM Vertigo, benign Resul ts for this CDT positional procedure are i n the results section. BASIC METABOLIC Routine 10/05/2010 11:40 AM Vertigo, benign Re sults for this PANEL CDT positional procedure are i n the results section. CBC WITH PLATELETS Routine 10/05/2010 11:40 AM Vertigo, benign Results for this CDT positional procedure are i n the results section. documented in this encounter Results TSH (10/05/2010 11:40 AM CDT) P athologist Signature TSH 0.93 0.4 - 5.0 [facility] mU/L CLINIC LAB Specimen Anatomical Collection Method Collection Time Receive d Time (Source) Location / / Volume Laterality Blood specimen 10/05/2010 11:40 1 (specimen) AM CDT 11:45 AM CDT Kate Murphy NP LAB - BLOOD ORDERABLES Performing Organization Address City/State/ZIP Code Phon e Number [facility] [address] [place] [address] [facility] (ABNORMAL) Basic metabolic panel (10/05/2010 11:40 AM CDT) Analysis Performed At Patho logist Time Signature Sodium 143 133 - 144 [place] mmol/L [facility] Potassium 4.3 3.4 - 5.3 [place] mmol/L [facility] Chloride 106 94 - 109 [place] mmol/L [facility] Carbon Dioxide 27 20 - 32 [place] mmol/L [facility] Anion Gap 10 6 - 17 [place] mmol/L [facility] Glucose 112 (H) 60 - 99 [facility] mg/dL [facility] Urea Nitrogen 19 7 - 30 [place] mg/dL [facility] Creatinine 1.15 (H) 0.52 - [facility] 1.04 mg/dL [facility] GFR Estimate 49 (L) >60 [place] mL/min/1.7 [facility] m2 LAB GFR Estimate If 60 (L) >60 [place] Black mL/min/1.7 [facility] m2 LAB Calcium 9.3 8.5 - 10.4 [place] mg/dL [facility] Specimen Anatomical Collection Method Collection Time Receive d Time (Source) Location / / Volume Laterality Blood specimen 10/05/2010 11:40 1 (specimen) AM CDT 11:45 AM CDT Kate Murphy NP LAB - BLOOD ORDERABLES Performing Organization Address City/[facility]/ZIP Code Phon e Number [address] [address] [facility] CBC with platelets (10/05/2010 11:40 AM CDT) athologist Signature WBC 5.1 4.0 - 11.0 [place] 10e9/L [facility] RBC Count 4.03 3.8 - 5.2 [place] 10e12/L [facility] Hemoglobin 12.6 11.7 - [facility] 15.7 g/dL [facility] Hematocrit 37.8 35.0 - [facility] 47.0 % [facility] MCV 94 78 - 100 [facility] MCH 31.3 26.5 - [facility] 33.0 pg [facility] MCHC 33.3 31.5 - [facility] 36.5 g/dL [facility] RDW 12.6 10.0 - [facility] 15.0 % [facility] Platelet Count 269 150 - 450 [place] 10e9/L [facility] Specimen Anatomical Collection Method Collection Time Receive d Time (Source) Location / / Volume Laterality Blood specimen 10/05/2010 11:40 1 (specimen) AM CDT 11:45 AM CDT Kate Murphy NP LAB - BLOOD ORDERABLES Performing Organization Address City/State/ZIP Code Phon e Number [facility] [address] [place], [place] [address] [address] [facility] documented in this encounter Visit Diagnoses Diagnosis Vertigo, benign positional - Primary Benign paroxysmal positional vertigo documented in this encounter Care Teams Guinea Pig Breeder Relationship Specialty Start Date End Date Vincenzo Grimaldo MD PCP - General 07/07/07 02/24/14 documented as of this encounter
--- OUTSIDE RECORDS SUMMARY | 2021-12-03 11:12 | XMS_ITS | Encounter Summary ---
:1955 Author Organization [facility] Address [address] [place] [address] Care Team Providers Name Role Phone Vincenzo Grimaldo MD Primary Care Provider Encounter Details Date Type Department Care Team Description 02/13/2010 Therapy Visit [place] for Juan Perez, Neck pain (P [facility] Athletic Medicine - Nilam, PT Dx) [facility] Therapy [address] Wilberto Haddad [facility]. [facility] [address] [place], [place] [phone] Social History Tobacco Use Types Packs/Day [...] this encounter Progress Notes Nilam Winn - 04/11/2010 10:18 PM PIPING MANAGER Addended by: NILAM WINN on: 04/11/2010 Modules accepted: Orders NG MANAGER Nilam Winn - 04/11/2010 10:18 PM CST Subjective: HPI Objective: System Physical Exam General ROS Assessment/Plan: DISCHARGE REPORT Progress reporting period is from 12-26-09 to 04-11-10. SUBJECTIVE Subjective: Rec'd add orders for +4-6 visits and for home traction unit.JARA after being on home traction. Current Pain level: 6/10 Initial Pain level: 8/10 Changes in function: No changes noted in function since last SOAP note ; , The subjective and objective information are from the last SOAP note on this patient. OBJECTIVE Objective: Instructed to loosen head supports on home traction. Suboccipital tenderness today. Needsfocus on strengthening. ASSESSMENT/PLAN Updated problem list and treatment plan: STG/LTGs have been met or progress has been made towards goals: Yes (See Goal flow sheet completed today.) Assessment of Progress: The patient's progress has plateaued. Self Management Plans: Patient is independent in a home treatment program. Patient is independent in self management of symptoms. Gloria continues to require the following intervention to meet STG and LTG's: PT intervention is no longer required to meet STG/LTG. We will discharge this patient from PT. Recommendations: This patient is ready to be discharged from therapy and continue their home treatment program. Please refer to the daily flowsheet for treatment today, total treatment time and time spent performing 1:1 timed codes. NG MANAGER documented in this encounter Plan of Treatment Not on filedocumented as of this encounter Procedures Procedure Name Priority Date/Time Associated Diagnosis Comme nts ZZC MANUAL THER Routine 02/13/2010 2:08 PM Neck pain TECH,1+REGIONS,EA 15 MIN PIPING MANAGER ZZC NEUROMUSCULAR Routine 02/13/2010 2:08 PM Neck pain RE-EDUCATION PIPING MANAGER ZZC THERAPEUTIC EXERCISES Routine 02/13/2010 2:08 PM Neck pain PIPING MANAGER documented in this encounter Visit Diagnoses Diagnosis Neck pain - Primary Cervicalgia documented in this encounter Care Teams Medical Supply Technician Relationship Specialty Start Date End Date Vincenzo Grimaldo MD PCP - General 07/07/07 02/24/14 documented as of this encounter
--- OUTSIDE RECORDS SUMMARY | 2021-12-03 11:12 | XMS_ITS | Encounter Summary ---
:1955 Author Organization [facility] Address [address] [place] [address] Care Team Providers Name Role Phone Vincenzo Grimaldo MD Primary Care Provider Reason for Visit Reason Onset Date Comments Refill Request 06/22/2011 zolpidem Encounter Details Date Type Department Care Team Description 06/22/2011 Refill [facility] Vincenzo Grimaldo MD Refill Request Clinic [place] [address] (zolpidem) [address] [place] [address] [place], [place] [phone] (Wo rk) [address] [phone] Social History Tobacco Use Types Packs/Day Years [...] Notes Telephone Encounter - Salvador Puckett - 06/22/2011 1:56 PM CDT Faxed to [facility] [place]. Gale Puckett MA Telephone Encounter - Vincenzo Grimaldo MD - 06/22/2011 1:09 PM CDT Please fax written Rx. Telephone Encounter - Elizabeth Yanes - 06/22/2011 10:05 AM CDT CHARLI 02/26/11 LR 02/26/11 #30 with 2 refills MD approval required Please advise Telephone Encounter - Shruthi Watson - 06/22/2011 10:04 AM CDT Refill request from pharmacy. Last ov:02/26/11 Last fill:02/26/11 Last b/p BP Readings from Last 1 Encounters: 04/14/2010 : 130/75 Shruthi Watson, Station Coordinator documented in this encounter Plan of Treatment Not on filedocumented as of this encounter Visit Diagnoses Diagnosis Insomnia - Primary Insomnia, unspecified documented in this encounter Care Teams Health Services Rn Relationship Specialty Start Date End Date Vincenzo Grimaldo MD PCP - General 07/07/07 02/24/14 documented as of this encounter
--- OUTSIDE RECORDS SUMMARY | 2021-12-03 11:12 | XMS_ITS | Encounter Summary ---
:1955 Author Organization [facility] Address [address] [place] [address] Care Team Providers Name Role Phone Vincenzo Grimaldo MD Primary Care Provider Reason for Visit Reason Onset Date Comments Refill Request 11/02/2010 Naproxen Encounter Details Date Type Department Care Team Description 11/02/2010 Refill [facility] Vincenzo Grimaldo MD Refill Request Clinic [place] [address] (Naproxen) [address] [place] [address] [place], [place] [phone] (Wo rk) [address] [phone] Social History Tobacco Use Types Packs/Day Years [...] Notes Telephone Encounter - Elizabeth Yanes - 11/05/2010 2:07 PM CDT Refill request for naproxen Last O/V: 10/05/2010 saw Murphy Creatinine Date Value Range Status 10/05/2010 1.15* 0.52-1.04 (mg/dL) Final RN unable to approve d/t elevated creatinine Telephone Encounter - Nadine Puckett - 11/02/2010 1:47 PM CDT Refill request from [facility] pharmacy for Naproxen. Last O/V: 10/05/2010 Last Rx Written: 08/31/2010 documented in this encounter Plan of Treatment Not on filedocumented as of this encounter Visit Diagnoses Diagnosis Cervicalgia - Primary documented in this encounter Care Teams Face Burler Relationship Specialty Start Date End Date Vincenzo Grimaldo MD PCP - General 07/07/07 02/24/14 documented as of this encounter
--- OUTSIDE RECORDS SUMMARY | 2021-12-03 11:12 | XMS_ITS | Encounter Summary ---
:1955 Author Organization [facility] Address [address] [place] [address] Care Team Providers Name Role Phone Vincenzo Grimaldo MD Primary Care Provider Reason for Visit Reason Onset Date Comments Refill Request 08/03/2010 JOANNE Encounter Details Date Type Department Care Team Description 08/03/2010 Refill [facility] Vincenzo Grimaldo MD Refill Request (AMBIEN) Clinic [place] [address] [facility] 303 [facility] [address] [place] [address] [place], [place] [phone] (Wo rk) [phone] Social History Tobacco Use Types Packs/Day Years [...] Notes Telephone Encounter - Britta Mena - 08/03/2010 3:48 PM CDT Faxed Rx to [facility] in [place] as requested. Telephone Encounter - Ed Weiner - 08/03/2010 1:41 PM CDT Pharmacy request refill of Ambien. Last OV 08/22/09. Last refill 05/05/10 #30 tabs. Rx needs to be printed, manually signed, and faxed to pharmacy. Please fax to [facility] pharmacy @ [phone]. approval Required Telephone Encounter - Ting Gomez - 08/03/2010 1:06 PM CDT Refill request from [facility] for: AMBIEN Last O/V: 08/22/09 Last Refill: 05/05/10 documented in this encounter Plan of Treatment Not on filedocumented as of this encounter Visit Diagnoses Diagnosis Insomnia Insomnia, unspecified documented in this encounter Care Teams Child Guidance Counselor Relationship Specialty Start Date End Date Vincenzo Grimaldo MD PCP - General 07/07/07 02/24/14 documented as of this encounter
--- OUTSIDE RECORDS SUMMARY | 2021-12-03 11:12 | XMS_ITS | Encounter Summary ---
:1955 Author Organization [facility] Address [address] [place] [address] Care Team Providers Name Role Phone Vincenzo Grimaldo MD Primary Care Provider Reason for Visit Reason Onset Date Comments Refill Request 02/10/2011 zolpidem ER Encounter Details Date Type Department Care Team Description 02/10/2011 Refill [facility] Vincenzo Grimaldo MD Refill Request Clinic [place] [address] (zolpidem ER) [address] [place] [address] [place], [place] [phone] (Wo rk) [phone] Social History Tobacco Use Types Packs/Day Years [...] Notes Telephone Encounter - Salvador Puckett - 02/10/2011 2:57 PM CST Rx faxed to [facility] in [place] and pt notified. Gale Puckett MA OSYSTEMS ENGINEER Telephone Encounter - Vincenzo Grimaldo MD - 02/10/2011 2:44 PM CST Refill okay to be faxed--see other telephone encounter. OSYSTEMS ENGINEER Telephone Encounter - Suad Rutherford RN - 02/10/2011 1:48 PM CST Refill request from pharmacy: Zolpidem ER Last OV: 10/05/10 Last filled: 01/13/11 Dr. Grimaldo: there is a note on the fax form from [facility] pharmacy that pt thinks she threw it in trash by mistake. Please advise as you had ordered this med 01/13/11 for the pt. MD requires authorization, please print Rx, MD signature needed. Desi Rutherford RN OSYSTEMS ENGINEER documented in this encounter Plan of Treatment Not on filedocumented as of this encounter Visit Diagnoses Diagnosis Insomnia Insomnia, unspecified documented in this encounter Care Teams Precision Thread Grinder Operator Relationship Specialty Start Date End Date Vincenzo Grimaldo MD PCP - General 07/07/07 02/24/14 documented as of this encounter
--- OUTSIDE RECORDS SUMMARY | 2021-12-03 11:12 | XMS_ITS | Encounter Summary ---
:1955 Author Organization [place] Address [address] [place] [address] Care Team Providers Name Role Phone Vincenzo Grimaldo MD Primary Care Provider Encounter Details Date Type Department Care Team Description 02/23/2010 [facility] Fabian roscopic hematuria [facility] [address] [place] [address] Social History Tobacco Use Types Packs/Day Years [...] Name Priority Date/Time Associated Diagnosis Comme nts UA MACROSCOPIC WITH Routine 02/23/2010 11:27 Microscopic Resu lts for this REFLEX TO MICRO AM ELECTRIC TRUCKER hematuria procedure ar e in the results section. URINE MICROSCOPIC Routine 02/23/2010 11:27 Result s for this EXAM AM ELECTRIC TRUCKER procedure are i n the results section. documented in this encounter Results (ABNORMAL) Microscopic exam urine (02/23/2010 11:27 AM ELECTRIC TRUCKER) [facility] Method Time Signature WBC Urine 2-5 (A) 0 - 2 [facility] RBC Urine O - 2 0 - 2 [facility] Squamous Few FEW /LPF [place] Epithelial /LPF [facility] Urine LAB Bacteria Urine Few (A) NEG /HPF [facility] Mucous Urine Present (A) NEG /LPF [facility] Specimen Anatomical Collection Method Collection Time Receive d Time (Source) Location / / Volume Laterality 02/23/2010 11:27 02/23/2010 AM ELECTRIC TRUCKER 11:32 AM ELECTRIC TRUCKER Vincenzo Grimaldo MD LAB - URINE ORDERABLES Performing Organization Address City/[facility] Phon e Number [place] [address] [phone] [address] [facility] (ABNORMAL) UA macroscopic with reflex to micro (02/23/2010 11:27 AM ELECTRIC TRUCKER) [facility] Method Time Signature Color Urine Yellow [facility] Appearance Urine Clear [facility] Glucose Urine Negative NEG mg/dL [facility] Bilirubin Urine Negative NEG [facility] Ketones Urine Trace (A) NEG mg/dL [facility] Specific [place] 1.020 1.003 - [place] Urine 1.035 [facility] Blood Urine Negative NEG [facility] pH Urine 5.0 5.0 - 7.0 [place] pH [facility] Protein Albumin Negative NEG mg/dL [facility] Urobilinogen 0.2 0.2 - 1.0 [place] Urine EU/dL [facility] Nitrite Urine Negative NEG [facility] Leukocyte Small (A) NEG [place] Esterase Urine [facility] Source Midstream [facility] Specimen Anatomical Collection Method Collection Time Receive d Time (Source) Location / / Volume Laterality Urine specimen 02/23/2010 11:27 0 (specimen) AM ELECTRIC TRUCKER 11:32 AM ELECTRIC TRUCKER Vincenzo Grimaldo MD LAB - URINE ORDERABLES Performing Organization Address City/[facility]/ZIP [facility] Phon e Number [facility] [address] [place], [place] [address] [address] [facility] documented in this encounter Visit Diagnoses Diagnosis Microscopic hematuria documented in this encounter Care Teams Conveyor System Operator Relationship Specialty Start Date End Date Vincenzo Grimaldo MD PCP - General 07/07/07 02/24/14 documented as of this encounter
--- OUTSIDE RECORDS SUMMARY | 2021-12-03 11:12 | XMS_ITS | Encounter Summary ---
:1955 Author Organization [place] Address [address] [place] [address] Care Team Providers Name Role Phone Vincenzo Grimaldo MD Primary Care Provider Encounter Details Date Type Department Care Team Description 02/27/2010 Orders Only [facility] Clinic [place]; [place] [facility] Family history of hypothyroi dism [address] [place] [address] Social History Tobacco Use Types [...] Date/Time Associated Diagnosis Comme nts TSH Routine 02/27/2010 1:12 PM [place] Results for this DIRECTOR MOTION PICTURE Family history of procedure are in hypothyroidism the results section. T4 FREE Routine 02/27/2010 1:12 PM [place] Results for this DIRECTOR MOTION PICTURE Family history of procedure are in hypothyroidism the results section. T3 FREE Routine 02/27/2010 1:12 PM [place] Results for this DIRECTOR MOTION PICTURE Family history of procedure are in hypothyroidism the results section. documented in this encounter Results T3 Free (02/27/2010 1:12 PM DIRECTOR MOTION PICTURE) athologist Signature Free T3 2.7 2.3 - 4.2 [facility] pg/mL CAMPUS LABS Specimen Anatomical Collection Method Collection Time Receive d Time (Source) Location / / Volume Laterality Blood specimen 02/27/2010 1:12 PM 010 1:17 (specimen) DIRECTOR MOTION PICTURE PM DIRECTOR MOTION PICTURE Vincenzo Grimaldo MD LAB - BLOOD ORDERABLES Performing Organization Address City/State/ZIP Code Phon e Number [facility] [address] [place] [address] [facility] LABS T4 free (02/27/2010 1:12 PM DIRECTOR MOTION PICTURE) athologist Signature T4 Free 1.04 0.70 - 1.85 [facility]dL [facility] LAB Specimen Anatomical Collection Method Collection Time Receive d Time (Source) Location / / Volume Laterality Blood specimen 02/27/2010 1:12 PM 010 1:17 (specimen) DIRECTOR MOTION PICTURE PM DIRECTOR MOTION PICTURE Vincenzo Grimaldo MD LAB - BLOOD ORDERABLES Performing Organization Address City/State/ZIP Code Phon e Number [facility] [address] [place] [address] [facility] TSH (02/27/2010 1:12 PM DIRECTOR MOTION PICTURE) athologist Signature TSH 1.25 0.4 - 5.0 [facility] m[facility]/L [facility] LAB Specimen Anatomical Collection Method Collection Time Receive d Time (Source) Location / / Volume Laterality Blood specimen 02/27/2010 1:12 PM 010 1:17 (specimen) DIRECTOR MOTION PICTURE PM DIRECTOR MOTION PICTURE Vincenzo Grimaldo MD LAB - BLOOD ORDERABLES Performing Organization Address City/State/ZIP Code Phon e Number [facility] [address] [place] [address] [facility] documented in this encounter Visit Diagnoses Diagnosis [place]aise Other malaise and fatigue Family history of hypothyroidism Family history of other endocrine and me tabolic diseases documented in this encounter Care Teams Ultrasound Supervisor Relationship Specialty Start Date End Date Vincenzo Grimaldo MD PCP - General 07/07/07 02/24/14 documented as of this encounter
--- OUTSIDE RECORDS SUMMARY | 2021-12-03 11:13 | XMS_ITS | Encounter Summary ---
:1955 Author Organization [place] Address [address] [place] [address] Care Team Providers Name Role Phone Vincenzo Grimaldo MD Primary Care Provider Encounter Details Date Type Department Care Team Description 01/09/2010 Therapy Visit [place] for [place] Weide, Neck pain ([facility] Athletic Medicine - Nilam, PT Dx) [place] Physical [facility] Therapy [address] Wilberto Haddad [facility]. [facility] [address] [place], [place] [phone] Social History Tobacco Use Types Packs/Day [...] Diagnosis Comme nts ZZC MANUAL THER Routine 01/09/2010 1:55 PM CDT Neck pain TECH,1+REGIONS,EA 15 MIN ZZC THERAPEUTIC Routine 01/09/2010 1:55 PM CDT Neck pain EXERCISES ZZC MECHANICAL TRACTION Routine 01/09/2010 1:55 PM CDT Neck pa in THERAPY documented in this encounter Visit Diagnoses Diagnosis Neck pain - Primary Cervicalgia documented in this encounter Care Teams Lyft Driver Relationship Specialty Start Date End Date Vincenzo Grimaldo MD PCP - General 07/07/07 02/24/14 documented as of this encounter
--- OUTSIDE RECORDS SUMMARY | 2021-12-03 11:13 | XMS_ITS | Encounter Summary ---
:1955 Author Organization [place] Address [address] [place] [address] Care Team Providers Name Role Phone Vincenzo Grimaldo MD Primary Care Provider Reason for Visit Reason Onset Date Comments Orders 08/26/2009 MRI of entire spine Encounter Details Date Type Department Care Team Description 08/26/2009 Telephone [facility] Vincenzo Grimaldo MD Orders (MRI of entire Clinic [place] [address]) [address] [place], [place] [phone] [phone] Social History Tobacco Use Types Packs/Day Years [...] this encounter Miscellaneous Notes Telephone Encounter - Husam July - 08/27/2009 8:50 AM CDT Patient advised of Dr. Grimaldo's message regarding MRI Telephone Encounter - Pao Mcbride - 08/27/2009 8:40 AM CDT Left msg to call back Telephone Encounter - Vincenzo Grimaldo - 08/26/2009 5:22 PM CDT I think we should focus on one area of the spine at a time. Most of her symptoms were in the head and neck. I recommend getting the C-spine MRI, then seeing the specialist, then asking them whether they want to pursue further imaging. Please advise pt. Telephone Encounter - Shani Pickering - 08/26/2009 4:40 PM CDT Pt calling, would like to have her whole spine MRI done due to long standing low back pain and also hx of arthritis. Please advise if orders could be changed to include this in addition to the cervicalspine. Shani Pickering RN documented in this encounter Plan of Treatment Not on filedocumented as of this encounter Visit Diagnoses Not on filedocumented in this encounter Care Teams Solid Waste Division Supervisor Relationship Specialty Start Date End Date Vincenzo Grimaldo MD PCP - General 07/07/07 02/24/14 documented as of this encounter
--- OUTSIDE RECORDS SUMMARY | 2021-12-03 11:13 | XMS_ITS | Encounter Summary ---
:1955 Author Organization [place] Address [address] [place] [address] Care Team Providers Name Role Phone Vincenzo Grimaldo MD Primary Care Provider Encounter Details Date Type Department Care Team Description 01/23/2010 Therapy Visit [place] for [place] Weide, Neck pain ([facility] Athletic Medicine - Nilam, PT Dx) [place] Physical [facility] Therapy [address] Wilberto Haddad [facility]. [facility] [address] [place], [place] [phone] Social History Tobacco Use Types Packs/Day [...] Priority Date/Time Associated Diagnosis Comme nts ZZC MECHANICAL TRACTION Routine 01/23/2010 1:10 PM PROFESSOR OF JOURNALISM Neck pa in THERAPY ZZC MANUAL THER Routine 01/23/2010 1:10 PM PROFESSOR OF JOURNALISM Neck pain TECH,1+REGIONS,EA 15 MIN documented in this encounter Visit Diagnoses Diagnosis Neck pain - Primary Cervicalgia documented in this encounter Care Teams Aerobics Instructor Relationship Specialty Start Date End Date Vincenzo Grimaldo MD PCP - General 07/07/07 02/24/14 documented as of this encounter
--- OUTSIDE RECORDS SUMMARY | 2021-12-03 11:13 | XMS_ITS | Encounter Summary ---
:1955 Author Organization [place] Address [address] [place] [address] Care Team Providers Name Role Phone Vincenzo Grimaldo MD Primary Care Provider Encounter Details Date Type Department Care Team Description 01/19/2010 Therapy Visit [place] for [place] Weide, Neck pain ([facility] Athletic Medicine - Nilam, PT Dx) [place] Physical [facility] Therapy [address] Wilberto Haddad [facility]. [facility] [address] [place], [place] [phone] Social History Tobacco Use Types Packs/Day [...] Diagnosis Comme nts ZZC MANUAL THER Routine 01/19/2010 2:07 PM HOOKER INSPECTOR Neck pain TECH,1+REGIONS,EA 15 MIN ZZC ULTRASOUND THERAPY Routine 01/19/2010 2:07 PM HOOKER INSPECTOR Neck susan n documented in this encounter Visit Diagnoses Diagnosis Neck pain - Primary Cervicalgia documented in this encounter Care Teams Supervisor Intermediates Relationship Specialty Start Date End Date Vincenzo Grimaldo MD PCP - General 07/07/07 02/24/14 documented as of this encounter
--- OUTSIDE RECORDS SUMMARY | 2021-12-03 11:13 | XMS_ITS | Encounter Summary ---
:1955 Author Organization [place] Address [address] [place] [address] Care Team Providers Name Role Phone Vincenzo Grimaldo MD Primary Care Provider Encounter Details Date Type Department Care Team Description 01/26/2010 Therapy Visit [place] for [place] Weide, Neck pain ([facility] Athletic Medicine - [facility], PT Dx) [place] Physical [facility] Therapy [address] Wilberto Haddad [facility]. [facility] [address] [place], [place] [phone] Social History Tobacco Use Types Packs/Day [...] Name Priority Date/Time Associated Diagnosis Comme nts HC STRAPPING SHOULDER Routine 01/26/2010 9:19 AM FISH CONSERVATIONIST Neck pain ZZC MANUAL THER Routine 01/26/2010 9:19 AM FISH CONSERVATIONIST Neck pain TECH,1+REGIONS,EA 15 MIN ZZC MECHANICAL TRACTION Routine 01/26/2010 9:19 AM FISH CONSERVATIONIST Neck pa in THERAPY documented in this encounter Visit Diagnoses Diagnosis Neck pain - Primary Cervicalgia documented in this encounter Care Teams Casting Operator Helper Relationship Specialty Start Date End Date Vincenzo Grimaldo MD PCP - General 07/07/07 02/24/14 documented as of this encounter
--- OUTSIDE RECORDS SUMMARY | 2021-12-03 11:13 | XMS_ITS | Encounter Summary ---
:1955 Author Organization [place] Address [address] [place] [address] Care Team Providers Name Role Phone Vincenzo Grimaldo MD Primary Care Provider Encounter Details Date Type Department Care Team Description 01/02/2010 Therapy Visit [place] for [place] Weide, Neck pain ([facility] Athletic Medicine - Nilam, PT Dx) [place] Physical [facility] Therapy [address] Wilberto Haddad [facility]. [facility] [address] [place], [place] [phone] Social History Tobacco Use Types Packs/Day [...] Diagnosis Comme nts ZZC MANUAL THER Routine 01/02/2010 2:03 PM CDT Neck pain TECH,1+REGIONS,EA 15 MIN ZZC THERAPEUTIC Routine 01/02/2010 2:03 PM CDT Neck pain EXERCISES ZZC MECHANICAL TRACTION Routine 01/02/2010 2:03 PM CDT Neck pa in THERAPY documented in this encounter Visit Diagnoses Diagnosis Neck pain - Primary Cervicalgia documented in this encounter Care Teams Fast Food Server Relationship Specialty Start Date End Date Vincenzo Grimaldo MD PCP - General 07/07/07 02/24/14 documented as of this encounter
--- OUTSIDE RECORDS SUMMARY | 2021-12-03 11:13 | XMS_ITS | Encounter Summary ---
:1955 Author Organization [place] Address [address] [place] [address] Care Team Providers Name Role Phone Vincenzo Grimaldo MD Primary Care Provider Encounter Details Date Type Department Care Team Description 12/29/2009 Therapy Visit [place] for [place] Weide, Neck pain ([facility] Athletic Medicine - Nilam, PT Dx) [place] Physical [facility] Therapy [address] Wilberto Haddad [facility]. [facility] [address] [place], [place] [phone] Social History Tobacco Use Types Packs/Day [...] Diagnosis Comme nts ZZC MANUAL THER Routine 12/29/2009 1:50 PM CDT Neck pain TECH,1+REGIONS,EA 15 MIN ZZC THERAPEUTIC Routine 12/29/2009 1:50 PM CDT Neck pain EXERCISES ZZC MECHANICAL TRACTION Routine 12/29/2009 1:50 PM CDT Neck pa in THERAPY documented in this encounter Visit Diagnoses Diagnosis Neck pain - Primary Cervicalgia documented in this encounter Care Teams Shoddy Mill Worker Relationship Specialty Start Date End Date Vincenzo Grimaldo MD PCP - General 07/07/07 02/24/14 documented as of this encounter
--- OUTSIDE RECORDS SUMMARY | 2021-12-03 11:13 | XMS_ITS | Encounter Summary ---
:1955 Author Organization [place] Address [address] [place] [address] Care Team Providers Name Role Phone Vincenzo Grimaldo MD Primary Care Provider Encounter Details Date Type Department Care Team Description 01/05/2010 Therapy Visit [place] for [place] Weide, Neck pain ([facility] Athletic Medicine - [facility], PT Dx) [place] Physical [facility] Therapy [address] Wilberto Haddad [facility]. [facility] [address] [place], [place] [phone] Social History Tobacco Use Types Packs/Day [...] Diagnosis Comme nts ZZC MANUAL THER Routine 01/05/2010 12:31 PM Neck pain TECH,1+REGIONS,EA 15 MIN CDT ZZC THERAPEUTIC Routine 01/05/2010 12:31 PM Neck pain EXERCISES CDT ZZC MECHANICAL TRACTION Routine 01/05/2010 12:31 PM Neck pain THERAPY CDT documented in this encounter Visit Diagnoses Diagnosis Neck pain - Primary Cervicalgia documented in this encounter Care Teams Physiatrist Relationship Specialty Start Date End Date Vincenzo Grimaldo MD PCP - General 07/07/07 02/24/14 documented as of this encounter
--- OUTSIDE RECORDS SUMMARY | 2021-12-03 11:13 | XMS_ITS | Encounter Summary ---
:1955 Author Organization [place] Address [address] [place] [address] Care Team Providers Name Role Phone Vincenzo Grimaldo MD Primary Care Provider Encounter Details Date Type Department Care Team Description 01/12/2010 Therapy Visit [place] for [place] Weide, Neck pain ([facility] Athletic Medicine - Nilam, PT Dx) [place] Physical [facility] Therapy [address] Wilberto Haddad [facility]. [facility] [address] [place], [place] [phone] Social History Tobacco Use Types Packs/Day [...] Diagnosis Comme nts ZZC MANUAL THER Routine 01/12/2010 2:03 PM CDT Neck pain TECH,1+REGIONS,EA 15 MIN ZZC THERAPEUTIC Routine 01/12/2010 2:03 PM CDT Neck pain EXERCISES ZZC MECHANICAL TRACTION Routine 01/12/2010 2:03 PM CDT Neck pa in THERAPY documented in this encounter Visit Diagnoses Diagnosis Neck pain - Primary Cervicalgia documented in this encounter Care Teams Honing Machine Set Up Operator Relationship Specialty Start Date End Date Vincenzo Grimaldo MD PCP - General 07/07/07 02/24/14 documented as of this encounter
--- OUTSIDE RECORDS SUMMARY | 2021-12-03 11:13 | XMS_ITS | Encounter Summary ---
:1955 Author Organization [place] Address [address] [place] [address] Care Team Providers Name Role Phone Vincenzo Grimaldo MD Primary Care Provider Reason for Referral - Closed Specialty Diagnoses / Procedures Referred By Contact Refer red To Contact Diagnoses Cervicalgia Vincenzo Grimaldo MD [address] [place] [address] Referral ID Status Reason Start Date Expiration Date Visits Requ ested Visits Authorized [id number] Closed 12/23/2009 12/23/2009 1 1 Reason for Visit Reason Comments Pain cervical spine Encounter Details Date Type Department Care Team Description 12/23/2009 Telephone [facility] Vincenzo Grimaldo MD Pain (cervical spine) Clinic [place] [address] [place], [place] [phone] [phone] Social History Tobacco Use Types Packs/Day Years [...] Miscellaneous Notes Telephone Encounter - Vincenzo Grimaldo - 12/24/2009 1:49 PM CDT Agree with plan. Telephone Encounter - Kaitlyn Flor - 12/23/2009 2:15 PM CDT Spoke w/Gloria - She has had a recent MRI and now feels she is ready to f/u w/research laboratory specialist. Placed orders for [facility] to [facility]. Sent for co-sign. Telephone Encounter - Gloria Figueroa - 12/23/2009 10:58 AM CDT Pt called stating her pain in neck is not being controlled by Naproxen. Has been trying to avoid theTramadol as she heard it is very addicting. Also would like referral to see regulatory affairs specialist; results on her MRI show cervical disk protrusion and herniation. --advised pt to continue Naproxen for anti-inflammatory effect and use Tramadol as directed to keep up with the pain. --Advised she speak to referrals dept re: referral to [facility]. documented in this encounter Plan of Treatment Pending Results Name Type Priority Associated Diagnoses Date/Ti me CONSULT ORTHO ELECTRO MECHANICAL ASSEMBLER Referral Routine Cervicalgia 1 documented as of this encounter Visit Diagnoses Diagnosis Cervicalgia - Primary documented in this encounter Care Teams Barrel Filler Head Relationship Specialty Start Date End Date Vincenzo Grimaldo MD PCP - General 07/07/07 02/24/14 documented as of this encounter
--- OUTSIDE RECORDS SUMMARY | 2021-12-03 11:13 | XMS_ITS | Encounter Summary ---
:1955 Author Organization [place] Address [address] [place] [address] Care Team Providers Name Role Phone Vincenzo Grimaldo MD Primary Care Provider Reason for Visit Reason Onset Date Comments Refill Request 09/02/2009 imtiaz [place] Encounter Details Date Type Department Care Team Description 09/02/2009 Refill [facility] Vincenzo Grimaldo MD Refill Request ([facility] [place] [address] [facility]) [address] [place] [address] [place], [place] [phone] (Wo rk) [address] [phone] Social History Tobacco Use Types Packs/Day Years [...] this encounter Miscellaneous Notes Telephone Encounter - Pawel Hunt - 09/03/2009 8:32 AM CDT Rx faxed Telephone Encounter - Vincenzo Grimaldo - 09/03/2009 7:33 AM CDT Please fax written Rx. Telephone Encounter - Soni Torres - 09/02/2009 11:25 AM CDT Faxed request from pharmacy received for RF of imtiaz CR. Last o/v 08/22/09. Last fill 07/30/09. Rx needs to be printed, manually signed and faxed to pharmacy. Soni Torres RN documented in this encounter Plan of Treatment Not on filedocumented as of this encounter Visit Diagnoses Diagnosis Insomnia - Primary Insomnia, unspecified documented in this encounter Care Teams Heel Seat Fitter Machine Relationship Specialty Start Date End Date Vincenzo Grimaldo MD PCP - General 07/07/07 02/24/14 documented as of this encounter
--- OUTSIDE RECORDS SUMMARY | 2021-12-03 11:13 | XMS_ITS | Encounter Summary ---
:1955 Author Organization [place] Address [address] [place] [address] Care Team Providers Name Role Phone Vincenzo Grimaldo MD Primary Care Provider Reason for Visit Reason Onset Date Comments Cervical/Thoracic 12/08/2009 cervical neck pain Orders 12/08/2009 PT referral and NSAI D Encounter Details Date Type Department Care Team Description 12/08/2009 Telephone [facility] Vincenzo Grimaldo MD Cervical/Thoracic Clinic [place] [address] (cervical neck pain); [address] [place] [address] Orders (PT referral [place], [place] [address] and NSAID) [phone] Social History Tobacco Use Types Packs/Day Years [...] this encounter Miscellaneous Notes Telephone Encounter - Alexandria Brice - 12/08/2009 2:[address] Grimaldo left on answering machine regarding medication and order. Telephone Encounter - Vincenzo Grimaldo - 12/08/2009 1:12 PM CDT Left message on pt's home phone. Ordered Physical Therapy, faxed Rx for Naprosyn. Telephone Encounter - Page Villegas - 12/08/2009 11:06 AM CDT 1) Pt called for results of MRI Pt would appreciate phone call regarding results 2) Dr Grimaldo - Pt would appreciate an RX for NSAID that would not cause gastric upset and would like a PT referral for gentle exercise and pain relief measures Thank you I discussed use of soft cervical collar and gentle exercises for gen body toning and body mechanics documented in this encounter Plan of Treatment Not on filedocumented as of this encounter Visit Diagnoses Diagnosis Cervical neck pain with evidence of disc disease - Primary Other and unspecified disc disorder of c ervical region documented in this encounter Care Teams Digital Marketing Manager Relationship Specialty Start Date End Date Vincenzo Grimaldo MD PCP - General 07/07/07 02/24/14 documented as of this encounter
--- OUTSIDE RECORDS SUMMARY | 2021-12-03 11:13 | XMS_ITS | Encounter Summary ---
:1955 Author Organization [place] Address [address] [place] [address] Care Team Providers Name Role Phone Vincenzo Grimaldo MD Primary Care Provider Reason for Visit Reason Onset Date Comments Refill Request 12/31/2009 imtiaz [place] Encounter Details Date Type Department Care Team Description 12/31/[address] [facility] Vincenzo Grimaldo MD Refill Request (ambien [facility] [place] [address] [facility]) [address] [place], [place] [phone] Social History Tobacco Use Types Packs/Day Years [...] Notes Telephone Encounter - Britta Mena - 01/01/2010 1:42 PM CDT Faxed Rx to [facility] in [place] as requested. Telephone Encounter - Vincenzo Grimaldo - 01/01/2010 1:10 PM CDT Please fax written Rx. Telephone Encounter - Husam July - 12/31/2009 3:51 PM CDT pharmacy requesting refill, last fill 12/08/09 last OV 08/22/09 Rx needs to be printed, manually signed, and faxed to [facility] fax# [phone] documented in this encounter Plan of Treatment Not on filedocumented as of this encounter Visit Diagnoses Diagnosis Insomnia - Primary Insomnia, unspecified documented in this encounter Care Teams American History Teacher Relationship Specialty Start Date End Date Vincenzo Grimaldo MD PCP - General 07/07/07 02/24/14 documented as of this encounter
--- OUTSIDE RECORDS SUMMARY | 2021-12-03 11:13 | XMS_ITS | Encounter Summary ---
:1955 Author Organization [facility] Address [address] [place] [address] Care Team Providers Name Role Phone Vincenzo Grimaldo MD Primary Care Provider Encounter Details Date Type Department Care Team Description 01/19/2010 Telephone [facility] Vincenzo Grimaldo MD [place] [address] [facility] [address] [place] [address] [place] [address] [phone] Social History Tobacco Use Types Packs/Day Years [...] Notes Telephone Encounter - Pao Mcbride - 01/21/2010 9:52 AM CST Faxed. DRY PROCESS ENGINEER Telephone Encounter - Vincenzo Grimaldo - 01/20/2010 6:28 PM CST Spoke with pt. Please fax letter to [phone]. DRY PROCESS ENGINEER Telephone Encounter - Jen Tucker - 01/19/2010 4:56 PM CST Patient called after hours nurse line. [employer] Insurance Company needs Md orders for physical therapy. (Medical necessity).There # is [phone]. Can call patient on mobile or work # for any questions.Jen Tucker RN, [facility] DRY PROCESS ENGINEER documented in this encounter Plan of Treatment Not on filedocumented as of this encounter Visit Diagnoses Not on filedocumented in this encounter Care Teams Manual Qa Tester Relationship Specialty Start Date End Date Vincenzo Grimaldo MD PCP - General 07/07/07 02/24/14 documented as of this encounter
--- OUTSIDE RECORDS SUMMARY | 2021-12-03 11:13 | XMS_ITS | Encounter Summary ---
:1955 Author Organization [facility] Address [address] [place] [address] Care Team Providers Name Role Phone Vincenzo Grimaldo MD Primary Care Provider Reason for Visit Reason Onset Date Comments Refill Request 10/02/2009 imtiaz [place] Encounter Details Date Type Department Care Team Description 10/02/2009 Refill [facility] Vincenzo Grimaldo MD Refill Request (ambien Clinic [place] [address] [facility]) [address] [place], [place] [phone] Social History Tobacco Use Types Packs/Day Years [...] this encounter Miscellaneous Notes Telephone Encounter - Linda Herrera - 10/02/2009 1:34 PM CDT Prescription faxed to pharmacy listed. Telephone Encounter - July - 10/02/2009 10:01 AM CDT pharmacy requesting refill, last fill 09/03/09 last OV 08/22/09 Rx needs to be printed, manually signed, and faxed to pharmacy [facility] fx# [phone] documented in this encounter Plan of Treatment Not on filedocumented as of this encounter Visit Diagnoses Diagnosis Insomnia Insomnia, unspecified documented in this encounter Care Teams Straightedge Machine Operator Helper Relationship Specialty Start Date End Date Vincenzo Grimaldo MD PCP - General 07/07/07 02/24/14 documented as of this encounter
--- OUTSIDE RECORDS SUMMARY | 2021-12-03 11:13 | XMS_ITS | Encounter Summary ---
:1955 Author Organization [facility] Address [address] [place] [address] Care Team Providers Name Role Phone Vincenzo Grimaldo MD Primary Care Provider Reason for Referral Referral not Required - Closed Specialty Diagnoses / Procedures Referred By Contact Refer red To Contact Diagnoses Cervicalgia Vincenzo Grimaldo MD [facility] [address] [place] [address] Referral ID Status Reason Start Date Expiration Date Visits Requ ested Visits Authorized [id number] Closed 12/08/2009 12/08/2009 1 1 Reason for Visit Reason Onset Date Comments Orders 12/01/2009 Encounter Details Date Type Department Care Team Description 12/01/2009 Telephone [facility] Vincenzo Grimaldo MD Orders [place] [address] [place] [address] [place] [address] [phone] Social History Tobacco Use Types Packs/Day Years [...] Notes Telephone Encounter - Vincenzo Grimaldo - 12/08/2009 1:10 PM CDT Addended by: VINCENZO GRIMALDO on: 12/08/2009 Modules accepted: Orders Telephone Encounter - Linda Herrera - 12/01/2009 5:22 PM CDT Prescription faxed to pharmacy listed. Called pt left message that prescription faxed. Telephone Encounter - Lai Jin - 12/01/2009 5:18 PM CDT Please call and notify pt that prescription faxed to the pharmacy.Thanks! Telephone Encounter - Gloria Figueroa - 12/01/2009 3:30 PM CDT Received call from [facility] Radiology stating pt was scheduled for MRI in September and was unable to make it due to family issues; Is having a great deal of cervical spine pain now and needs MRI done. She is claustrophobic and needs Rx for pre- sedation. MRI scheduled for tomorrow, 12/02/09 --Reordered MRI --Please order pre-MRI sedation. Pharm listed. --explained to pt she needs regional dedicated truck driver to appt--she is agreeable and understands directions. documented in this encounter Plan of Treatment Not on filedocumented as of this encounter Procedures Procedure Name Priority Date/Time Associated Diagnosis Comme nts [facility] PT AND HAND Routine 01/30/2010 Cervicalgia REFERRAL HC MRI CERVICAL Routine 12/02/2009 5:00 PM Cervicalgia Result s for this SPINE W/O CONTRAST CDT procedure are in the results section. documented in this encounter Results CONSULT MARIAJOSE (PT & CHIRO) (01/30/2010) Narrative This result has an attachment that is no t available. Vincenzo Grimaldo MD REFERRAL MRI CERV SPINE (12/02/2009 5:00 PM CDT) Anatomical Region Laterality Modality Other Specimen (Source) Anatomical Collection Method Collection Time Re ceived Time Location / / Volume Laterality 12/02/2009 5:00 PM CDT Impressions 12/03/2009 10:14 AM CDT MRI CERVICAL SPINE WITHOUT CONTRAST ??Se p 2009 5:00:00 PM HISTORY: Cervicalgia. Neck pain for past 2 years. TECHNIQUE: ??Multiplanar multisequence M RI of the cervical spine without ??gadolinium contrast. COMPARISON: ??None. FINDINGS: ??The spinal cord appears norm al. The paraspinal soft tissues appear normal. ??The bone marrow has nor mal signal intensity. ?? C2-C3: ??There is a very small left cent ral disc protrusion causing slight mass effect on the dural sac. The central canal and neural foramina are normal. C3-C4: ??There is a small central disc p rotrusion causing slight mass effect on the dural sac. The central can al and neural foramina appear normal. C4-C5: ??There is a small central disc p rotrusion causing mild mass effect on the dural sac. The central can al is still adequate. There is only mild foraminal stenosis due to smal l uncinate spurs. C5-C6: ??There is degeneration of the di sc. There is loss of disc space height. There is a mild diffuse annular disc bulge. There is also a more focal broad-based left-sided disc h erniation with disc material extending into the region of the left C5 -C6 neural foramen. This is best seen on axial gradient-echo image 1 9 of series 7. This could affect the exiting left C6 nerve root. T he central canal is still normal. C6-C7: There is degeneration of the disc . There is mild loss of disc space height. There is a mild annular di sc bulge. The central canal and neural foramina appear adequate. C7-T1: Normal disc, facet joints, spinal canal and neural foramina. IMPRESSION: ??Multilevel degenerative ch johnny. Vincenzo Grimaldo MD SPECIAL IMAGING STUDIES documented in this encounter Visit Diagnoses Diagnosis Cervicalgia - Primary documented in this encounter Care Teams Right Of Way Agent Relationship Specialty Start Date End Date Vincenzo Grimaldo MD PCP - General 07/07/07 02/24/14 documented as of this encounter
--- OUTSIDE RECORDS SUMMARY | 2021-12-03 11:13 | XMS_ITS | Encounter Summary ---
:1955 Author Organization [facility] Address [address] [place] [address] Care Team Providers Name Role Phone Vincenzo Grimaldo MD Primary Care Provider Reason for Visit Reason Onset Date Comments Refill Request 10/01/2009 [place] Encounter Details Date Type Department Care Team Description 10/01/2009 Refill [facility] Vincenzo Grimaldo MD Refill Request Clinic [place] [address] ([place]) [address] [place], [place] [phone] Social History Tobacco Use Types Packs/Day Years [...] this encounter Miscellaneous Notes Telephone Encounter - Jess Fine - 10/01/2009 3:47 PM CDT Last appt: 08-22-2009 B/P 110/74 Labs: K+, Cr, 08-22-2009 WNL documented in this encounter Plan of Treatment Not on filedocumented as of this encounter Visit Diagnoses Diagnosis Edema - Primary documented in this encounter Care Teams Cigar Packer And Grader Relationship Specialty Start Date End Date Vincenzo Grimaldo MD PCP - General 07/07/07 02/24/14 documented as of this encounter
--- OUTSIDE RECORDS SUMMARY | 2021-12-03 11:13 | XMS_ITS | Encounter Summary ---
:1955 Author Organization [facility] Address [address] [place] [address] Care Team Providers Name Role Phone Vincenzo Grimaldo MD Primary Care Provider Reason for Visit Reason Onset Date Comments Refill Request 12/08/2009 imtiaz Encounter Details Date Type Department Care Team Description 12/08/2009 Refill [facility] Vincenzo Grimaldo MD Refill Request (ambien) Clinic [place] [address] [facility] [address] [facility] [address] [place], [place] [phone] Social History Tobacco Use Types Packs/Day Years [...] Notes Telephone Encounter - Linda Herrera - 12/08/2009 3:15 PM CDT Prescription faxed to pharmacy listed. Telephone Encounter - Page Villegas - 12/08/2009 1:40 PM CDT Normal RX request for Ambien Last refill was 10/29/09 LOV08/22/09 Please print, sign and fax RX to listed pharmacy documented in this encounter Plan of Treatment Not on filedocumented as of this encounter Visit Diagnoses Diagnosis Insomnia Insomnia, unspecified documented in this encounter Care Teams Borough Coordinator Relationship Specialty Start Date End Date Vincenzo Grimaldo MD PCP - General 07/07/07 02/24/14 documented as of this encounter
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
--- OUTSIDE RECORDS SUMMARY | 2021-12-03 11:14 | XMS_ITS | Encounter Summary ---
:1955 Author Organization [facility] Address [address] [place] [address] Care Team Providers Name Role Phone Vincenzo Grimaldo MD Primary Care Provider Encounter Details Date Type Department Care Team Description 01/12/2008 Results Only [facility] Vincenzo Grimaldo MD [place] [address] [facility] 160 [address] [place] [facility] [place] [address] [facility] [place] [address] [phone] Social History Tobacco Use Types Packs/Day Years Used Date Never Smoker Alcohol Use Standard Drinks/Week Comments Yes 0 (1 standard drink = 0.6 oz pure alcoho l) 5-6 glasses of wine a week Sex Assigned at Date Recorded Not on file documented as of this encounter Plan of Treatment Not on filedocumented as of this encounter Procedures Procedure Name Priority Date/Time Associated Diagnosis Comme [facility] ECHO HEART Routine 01/12/2008 1:10 PM Result s for this XTHORACIC, CDT procedure are i n STRESS/REST the results section. documented in this encounter Results ECHO HEART, FULL STRESS/REST (01/12/2008 1:10 PM CDT) [facility] Method Time Signature [facility] Interpretation Summary RESULTS THIS IS A NORMAL STRESS ECHOCARDIOGRAM. The study was technically adequate. There is no comparison study available. The patient exhibited no chest pain during exerc ise. No arrhythmia noted. The visual ejection fraction is estimated at 55-60%. Kay l valves. Trace mitral regurgitation. Normal aortic root. Normal left ventricular w all thickness. PatientHeight: 70 in PatientWeight: 210 lbs SystolicPressure: 112 mmHg DiastolicPressure: 70 mmHg HeartRate: 81 bpm BSA 2.1 m^2 Baseline The patient is in normal sinus rhythm. Resting ECG is normal. Normal left ventricular wall motion. The visual ejection fraction is estimated at 55-60%. Normal valves. Trace mitral regurgitation. Normal aortic jaswinder t. Normal left ventricular wall thickness. Stress The patient exhibited no chest pain during exercise. Exercise was stopped due to fatigue. Normal blood pressure response to exercise. Target Heart Rate was achieved. No arrhythmia noted. A moderate workload was achieved. There were no ST segment changes observed with stress. Normal resting wall motion and no stress-induced wall motion abnormality. Left ventricular cavity size decreases with exercise. Global LV systolic function augments with exercise. Procedure Stress Echo Complete. Stress Results Protocol: ??Roberth Protocol Target HR: 144 bpm ?Maximum Predicted HR: 1 69 bpm Stage ?Duration(mm:ss) ??HR(bpm) ?? BP ?DOSE ??Comment ? 03:00 ?118 ? 160/70 ? 03:00 ?133 ? 160/70 ? 03:00 ?153 ? 168/70 ? 00:10 ?155 ? / ? MAX BP 168/70 RECOVERY ? 08:14 ?90 ?120/70 ?RPP 26,040 Stress Duration: 09:09 mm:ss ??Recovery Time: 08:14 mm:ss Maximum Stress HR: 155 bpm ?METS: 10 Interpreting Physician: ??Mikie Ortega MD electronically signed on 01-12-2008 13:46:00 Specimen (Source) Anatomical Collection Method Collection Time Re ceived Time Location / / Volume Laterality 01/12/2008 1:10 PM CDT Vincenzo Grimaldo MD SPECIAL IMAGING STUDIES Performing Organization Address City/State/ZIP Code Phon e Number RADIOLOGY RESULTS documented in this encounter Visit Diagnoses Not on filedocumented in this encounter Care Teams Cottage Supervisor Relationship Specialty Start Date End Date Vincenzo Grimaldo MD PCP - General 07/07/07 02/24/14 documented as of this encounter
--- OUTSIDE RECORDS SUMMARY | 2021-12-03 11:14 | XMS_ITS | Encounter Summary ---
:1955 Author Organization [place] Address [address] [place] [address] Care Team Providers Name Role Phone Vincenzo Grimaldo MD Primary Care Provider Reason for Visit Reason Onset Date Comments Patient Request 02/22/2008 abd pain Encounter Details Date Type Department Care Team Description 02/22/[address] [facility] Vincenzo Grimaldo MD Patient Request (abd Clinic [place] [address] [address] pain) [address] [place], [place] [phone] Social History Tobacco Use Types Packs/Day Years Used Date Never Smoker Alcohol Use Standard Drinks/Week Comments Yes 0 (1 standard drink = 0.6 oz pure alcoho l) 5-6 glasses of wine a week Sex Assigned at Date Recorded Not on file documented as of this encounter Miscellaneous Notes Telephone Encounter - Pao Mcbride - 03/12/2008 1:06 PM CST Left msg to call back L MOLDER Telephone Encounter - Vincenzo Grimaldo - 03/07/2008 2:40 PM CST Have not heard back from patient, but will order HIDA scan. L MOLDER Telephone Encounter - Vincenzo Grimaldo - 02/23/2008 6:29 PM CST Consider gallbladder nuclear medicine scan (HIDA). Left message on pt's home machine. L MOLDER Telephone Encounter - Griselda Duarte - 02/22/2008 10:22 AM CST Pt called wondering if there is any next step for her gallbladder type discomfort. Her ultrasound was negative, is there anything else to do? L MOLDER documented in this encounter Plan of Treatment Not on filedocumented as of this encounter Visit Diagnoses Diagnosis RUQ abdominal pain - Primary Abdominal pain, right upper quadrant documented in this encounter Care Teams Cosmetics Machine Operator Relationship Specialty Start Date End Date Vincenzo Grimaldo MD PCP - General 07/07/07 02/24/14 documented as of this encounter
--- OUTSIDE RECORDS SUMMARY | 2021-12-03 11:14 | XMS_ITS | Encounter Summary ---
:1955 Author Organization [place] Address [address] [place] [address] Care Team Providers Name Role Phone Unavailable Primary Care Provider Unavailable Encounter Details Date Type Department Care Team Description 03/31/2007 Results Only [facility] Abel Card MD Hospital Results [facility] OBGYN CONSULTS [address] [place], [place] [phone] (Wo rk) Social History Tobacco Use Types Packs/Day Years Used Date Never Smoker Alcohol Use Standard Drinks/Week Comments Not Asked 0 (1 standard drink = 0.6 oz pure alcoho l) 5-6 glasses of wine a week Sex Assigned at Date Recorded Not on file documented as of this encounter Plan of Treatment Not on filedocumented as of this encounter Procedures Procedure Name Priority Date/Time Associated Diagnosis Comme [facility] MAMMOGRAM, Routine 03/31/2007 10:53 AM Results for this SCREENING BILATERAL MOTOR MAN procedur e are in the results section. documented in this encounter Results MAMMOGRAM, SCREENING (03/31/2007 10:53 AM MOTOR MAN) Specimen (Source) Anatomical Collection Method Collection Time Re ceived Time Location / / Volume Laterality 03/31/2007 10:53 AM MOTOR MAN Impressions RADIOLOGY RESULTS - 04/03/2007 2:[address] EXAM: MAMM SCREEN BILAT HISTORY/Comparison: ??Routine [facility] 11-8-0 2,12-03-05 Breast parenchyma: Heterogeneous density . FINDINGS: Negative. IMPRESSION: ACR BI-RAD Category 1. Negat kim. Abel Card MD SPECIAL IMAGING STUDIES Performing Organization Address City/State/ZIP Code Phon e Number RADIOLOGY RESULTS documented in this encounter Visit Diagnoses Not on filedocumented in this encounter
--- OUTSIDE RECORDS SUMMARY | 2021-12-03 11:14 | XMS_ITS | Encounter Summary ---
:1955 Author Organization [place] Address [address] [place] [address] Care Team Providers Name Role Phone Vincenzo Grimaldo MD Primary Care Provider Encounter Details Date Type Department Care Team Description 02/04/2009 Emergency room [facility] Lakeisha Freeman MD Hospital Results [facility] [address] [place] [address] (Wo rk) Social History Tobacco Use Types Packs/Day Years Used Date Never Smoker Alcohol Use Standard Drinks/Week Comments Yes 0 (1 standard drink = 0.6 oz pure alcoho l) 5-6 glasses of wine a week Sex Assigned at Date Recorded Not on file documented as of this encounter Progress Notes Lakeisha Kinsey MD - 03/07/2009 7:56 PM COLLECTION SYSTEMS CONSULTANT FINAL CHIEF COMPLAINT: Hematuria and also a couple of days of right-sided back pain. HISTORY OF PRESENT ILLNESS: Luda Garcia is a 53-year-old female who arrives for evaluation of hematuria noted earlier today. She has had no accompanying dysuria, frequency or urgency. She has been afebrile. She does note that for the past several days she has had right-sided mid back discomfort, which she characterizes as a dull ache. There are no alleviating or exacerbating factors. PAST MEDICAL HISTORY: Dependent edema. She takes Maxzide periodically for this. ALLERGIES: No allergies. SOCIAL HISTORY: She is , lives in [place] and is employed. PRIMARY CLINIC: [facility], Dr. Vincenzo Grimaldo. FAMILY HISTORY: He has a brother who is 70 years old and just suffered an infarction yesterday. Father at 67, cardiac causes. Mother at 87, according to patient, of rheumatoid arthritis. REVIEW OF SYSTEMS: As described above. There is no history of trauma or known over-exertion. All other systems are negative. PHYSICAL EXAMINATION: VITAL SIGNS: Blood pressure of 123/69, pulse 61, respiratory rate 18, temperature is 96.1 and O2 sats 100. GENERAL: Luda is a 53-year-old female who is alert, cooperative and comfortable-appearing. She shows absolutely no sign of distress. HEENT: Normal eyes, ears, nose, mouth and throat exams. NECK: Normal. LUNGS: Clear. CARDIAC: Regular. ABDOMEN: Completely benign, nondistended and soft with no tenderness. BACK: Normal. There is no CVA tenderness posteriorly with percussion. MUSCULOSKELETAL: Normal. SKIN: Warm, dry, no rashes or bruising. NEUROLOGIC: Nonfocal. PSYCHIATRIC: Normal affect. EMERGENCY DEPARTMENT COURSE AND DISCUSSION: Urinalysis showed 6 white blood cells, large LE, few bacteria, 2 squamous epithelials. A culture has been added to that. CT scan of the abdomen and pelvis stone protocol without contrast is negative. There is no kidney stone present. The appendix is normal. IMPRESSION: Hematuria, possibly secondary to a urinary tract infection. There is no evidence of ureterolithiasis. The back pain likely is unrelated and could simply be a basic mild musculoskeletal discomfort. I have cultured the urine and recommend a course of antibiotics and early followup. Should her hematuria not clear, she should follow up with a urologist. DIAGNOSES: 1. Hematuria, rule out urinary tract infection. 2. Musculoskeletal back pain. PLAN: She was given a prescription for Cipro 500 mg b.i.d. x3 days. She is requesting Diflucan, as she typically will get a vaginal candidiasis with antibiotics. Follow up as advised. Electronically signed on 03/07/2009 19:56 by LAKEISHA KINSEY MD MT: [id number] Name: LUDA GARCIA Account: [id number] : 1955 Visit Date: 02/04/2009 Document: [id number] cc: Vincenzo Grimaldo MD ECTION SYSTEMS CONSULTANT documented in this encounter Plan of Treatment Not on filedocumented as of this encounter Visit Diagnoses Not on filedocumented in this encounter Care Teams Dental Coordinator Relationship Specialty Start Date End Date Vincenzo Grimaldo MD PCP - General 07/07/07 02/24/14 documented as of this encounter
--- OUTSIDE RECORDS SUMMARY | 2021-12-03 11:14 | XMS_ITS | Encounter Summary ---
:1955 Author Organization [place] Address [address] [place] [address] Care Team Providers Name Role Phone Vincenzo Grimaldo MD Primary Care Provider Reason for Visit Reason Onset Date Comments Patient Request 09/20/2008 question Encounter Details Date Type Department Care Team Description 09/20/2008 Telephone [facility] Vincenzo Grimaldo MD Patient Request Clinic [place] [address] (question) [address] [place], [place] [address] [phone] Social History Tobacco Use Types Packs/Day Years Used Date Never Smoker Alcohol Use Standard Drinks/Week Comments Yes 0 (1 standard drink = 0.6 oz pure alcoho l) 5-6 glasses of wine a week Sex Assigned at Date Recorded Not on file documented as of this encounter Miscellaneous Notes Telephone Encounter - Vincenzo Grimaldo - 09/20/2008 5:12 PM CDT Spoke with Ms Bonilla and addressed her concerns. Telephone Encounter - Christiana Rodriguez RN - 09/20/2008 9:31 AM CDT Pt called to request MD call pt. She has a question about herself and her son. Does not want nurse to call. Would not tell RN nature of call. documented in this encounter Plan of Treatment Not on filedocumented as of this encounter Visit Diagnoses Not on filedocumented in this encounter Care Teams Finisher [employer] Relationship Specialty Start Date End Date Vincenzo Grimaldo MD PCP - General 07/07/07 02/24/14 documented as of this encounter
--- OUTSIDE RECORDS SUMMARY | 2021-12-03 11:14 | XMS_ITS | Encounter Summary ---
:1955 Author Organization [place] Address [address] [place] [address] Care Team Providers Name Role Phone Vincenzo Grimaldo MD Primary Care Provider Reason for Visit Reason Comments Physical with pap and pt is fasting f or labs Encounter Details Date Type Department Care Team Description 07/12/2008 Office Visit [facility] Vincenzo Grimaldo MD Routine Physical Examination (Primary Dx ); [facility] [address] Edema; [address] Overweight; [place], [place] Myalgias; [place] [address] UTERINE LEIOMYOMA NOS [address] [phone] Social History Tobacco Use Types Packs/Day Years Used Date Never Smoker Alcohol Use Standard Drinks/Week Comments Yes 0 (1 standard drink = 0.6 oz pure alcoho l) 5-6 glasses of wine a week Sex Assigned at Date Recorded Not on file documented as of this encounter Last Filed Vital Signs Vital Sign Reading Time Taken Comments Blood Pressure 122/72 07/12/2008 1:05 PM CDT Pulse 56 07/12/2008 1:05 PM CDT Temperature - - Respiratory Rate - - Oxygen Saturation - - Inhaled Oxygen Concentration - - Weight 98.8 kg (217 lb 12.8 oz) 07/12/2008 1:05 PM CDT Height 177.8 cm (5' 10) 07/12/2008 1:05 PM CDT Body Mass Index 31.25 07/12/2008 1:05 PM CDT documented in this encounter Progress Notes Vincenzo Grimaldo - 07/12/2008 1:36 PM CDT Luda Garcia presents for periodic exam. Past Medical History Diagnosis Date ??? 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 Leiomyoma of Uterus, Unspecified Current Outpatient Rx Name Route Sig Dispense Refill ??? MAXZIDE-25 37.5-25 MG OR TABS Oral 1 po qd PRN for edema 90 One year Past Surgical History Procedure Date ??? Arthroscopy knee rt/lt 04/2005 Left knee meniscus repair Family History Problem Relation ??? Arthritis Mother age 87, had severe RA ??? C.A.D. Father age 67, first [place] in his 20's or 30's (?); had a history of scarlet fever ??? Stroke Mother TIA ??? Hypertension Son 2 SONS WITH ENLARGED VENTRICLE - [facility]RE[facility] CARDS [facility] ??? Family History Negative Brother 2 brothers living. ??? Family History Negative Sister 2 sisters living, one at age 2 yo. History Social History ??? Marital Status: Spouse Name: Sebas Number of Children: 3 ??? 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 Tobacco Use: Never ??? Alcohol Use: Yes 5-6 glasses of wine a week ??? Drug Use: No ??? Sexually Active: Not on file Other Topics Concern ??? Not on file Social History Narrative Walking 5 times/week, about 7-8 miles per week. ROS: Has some fatigue, chronic insomnia. Takes Tylenol PM, one tablet qhs. Wears corrective lenses for near and distant vision. Some hearing loss. Takes a fiber pill twice weekly to manage constipation. Some delayed onset of urination, pt wonders whether due to fibroids. Some right hip pain, and also diffuse myalgias. REVIEW OF SYSTEMS are as listed above or negative for the following: Constitutional, HEENT, respiratory, cardiovascular, gastrointestinal, genitourinary, musculoskeletal, dermatologic, hematologic, endocrine, psychiatric, and neurologic systems. OBJECTIVE: Well-appearing middle-aged female in no distress. BP 122/72 Pulse 56 Ht 5' 10 (1.778 m) Wt 217 lb 12.8 oz (98.793 kg) Head normal. Eyes are normal. PERRLA, corneas, lids and conjunctivae normal. External ears and canals clear bilaterally. TM's normal bilaterally. Nose normal without lesions or discharge. Oropharynx normal. Neck supple without palpable adenopathy. Chest wall normal to inspection and palpation. Good excursion bilaterally. Lungs clear to auscultation. Good air movement bilaterally without rales, wheezes, or rhonchi. Breasts are symmetric. No dominant, discrete, fixed or suspicious masses are noted. No skin or nipple changes or axillary nodes. CV: Normal to precordial palpation and auscultation. Abdomen: soft without tenderness, guarding, mass or organomegaly. Bowel sounds are normal. No CVA tenderness or inguinal adenopathy noted. Vagina and vulva are normal; no discharge is noted. Cervix normal. Uterus anteverted and mobile, somewhat enlarged but without tenderness. Adnexa not palpable. Exam chaparoned by Nurse. Skin: Normal to inspection and palpation. Ext: All four extremities normal to inspection and palpation. Lymph: No cervical, axillary or inguinal lymphadenopathy. Neuro: Alert, well-oriented. Speech fluent. CN II-XII intact. Moves all extremities with equal strength and facility. Gait narrow-based. ASSESS/PLAN: V70.0F Routine Physical Examination (primary encounter diagnosis) Comment: Stable health. See epic orders. Plan: A THIN LAYER PAP SCREEN, HGB, FSH (GONADOTROPIN) 782.3 Edema Comment: Refilled Maxzide. Plan: MAXZIDE-25 37.5-25 MG OR TABS, SED RATE, AUTO, TSH W/FREE T4 REFLEX, A.M.A. BASIC METABOLIC PANEL, AST 278.00J Overweight Comment: We discussed nonpharmacologic factors in weight reduction, emphasizing the importance of proper eating habits (food choices and portion sizes) and routine exercise, and we discussed the potential benefits of a program such as Weight Watchers. Plan: A.M.A. LIPID PANEL, ALANINE AMINO (ALT) (SGPT) 729.1M Myalgias Comment: Check CK. Plan: CK, TOTAL 218.9 UTERINE LEIOMYOMA NOS Comment: Update pelvic ultrasound. Plan: SONO PELVIS COMPLETE Follow-up with me in a year, call or schedule a follow-up appointment sooner prn if any problems. documented in this encounter Nursing Notes 07/12/2008 1:15 PM CDT >> JENNIFER STAHL Fri July 12, 2008 1:09 PM Patient presents with: Physical - with pap and pt is fasting for labs Last Pap: Last Mammo:07/2008 Last Dexa:2007 Last Colonscopy: unknown Last TD: within 10 years initial BP 122/72 Pulse 56 Ht 5' 10 (1.778 m) Wt 217 lb 12.8 oz (98.793 kg) Body mass index is 31.25 kg/(m^2).. bp completed using cuff size large Jennifer Stahl MA documented in this encounter Plan of Treatment Not on filedocumented as of this encounter Procedures Procedure Name Priority Date/Time Associated Diagnosis Comme nts HCL FSH Routine 07/12/2008 2:00 PM Routine Physical Resul ts for this CDT Examination procedure are i n the results section. HCL HEMOGLOBIN Routine 07/12/2008 1:55 PM Routine Physical Res ults for this NONLAB CDT Examination procedure are i n the results section. HCL BASIC METABOLIC Routine 07/12/2008 1:55 PM Edema Re sults for this PANEL CDT procedure are i n the results section. HCL TSH W/FREE T4 Routine 07/12/2008 1:55 PM Edema Resu lts for this REFLEX CDT procedure are i n the results section. HCL CK, TOTAL Routine 07/12/2008 1:55 PM Myalgias Results for this CDT procedure are i n the results section. HCL SED RATE (ESR) Routine 07/12/2008 1:55 PM Edema Res ults for this CDT procedure are i n the results section. HCL ALT Routine 07/12/2008 1:55 PM Overweight Results f or this CDT procedure are i n the results section. HCL AST Routine 07/12/2008 1:55 PM Edema Results f or this CDT procedure are i n the results section. CL AFF A.M.A. LIPID Routine 07/12/2008 1:55 PM Overweight Re sults for this PANEL CDT procedure are i n the results section. HCL PAP THIN LAYER Routine 07/12/2008 12:00 Routine Physical R esults for this SCREEN AM CDT Examination procedure are i n the results section. documented in this encounter Results FSH (GONADOTROPIN) (07/12/2008 2:00 PM CDT) athologist Signature FSH 58.0 IU/L [facility] Comment: FSH Reference Range Female: Follicular ?2.5-10.2 ? Mid-cycle ? 3.4-33.4 ? Luteal ?1.5-9. 1 ? Postmenopausal ??23.0-116.3 Specimen Anatomical Collection Method Collection Time Receive d Time (Source) Location / / Volume Laterality 07/12/2008 2:00 PM 9 2:06 CDT PM CDT Vincenzo Grimaldo MD LABORATORY Performing Organization Address City/State/ZIP Code Phon e Number [facility] [address] [place] [address] [facility] HGB (07/12/2008 1:55 PM CDT) athologist Signature Hemoglobin 13.3 11.7 - 15.7 [facility] g/dL [facility] Specimen Anatomical Collection Method Collection Time Receive d Time (Source) Location / / Volume Laterality 07/12/2008 1:55 PM 9 2:00 CDT PM CDT Vincenzo Grimaldo MD LABORATORY Performing Organization Address City/State/ZIP Code Phon e Number [facility] [address] [place], [place] [address] [address] [facility] AST (07/12/2008 1:55 PM CDT) athologist Signature AST 23 0 - 45 U/L [facility] Specimen Anatomical Collection Method Collection Time Receive d Time (Source) Location / / Volume Laterality 07/12/2008 1:55 PM 9 2:00 CDT PM CDT Vincenzo Grimaldo MD LABORATORY Performing Organization Address City/State/ZIP Code Phon e Number [facility] [address] [place] [address] [phone] [facility] ALANINE AMINO (ALT) (SGPT) (07/12/2008 1:55 PM CDT) athologist Signature ALT 20 0 - 50 U/L [facility] Specimen Anatomical Collection Method Collection Time Receive d Time (Source) Location / / Volume Laterality 07/12/2008 1:55 PM 9 2:00 CDT PM CDT Vincenzo Grimaldo MD LABORATORY Performing Organization Address [facility] Phon e Number [facility] [address] [place] [address] [phone] [facility] (ABNORMAL) A.M.A. LIPID PANEL (07/12/2008 1:55 PM CDT) athologist Signature Cholesterol 230 (H) 0 - 200 [facility] mg/dL CLINIC LAB Comment: LDL Cholesterol is the primary guide to therapy: LDL-cholesterol goal in high risk patients is <100 mg/dL and in very high risk patients is <70 mg/dL. The NCEP recommends further evaluation of: patients with cholesterol <200 mg/dL if additional risk factors are present, cholesterol >240 mg/dL, triglycerides >150 mg/dL, or HDL <40 mg/dL. Triglycerides 120 0 - 150 mg/dL [facility] HDL Cholesterol 55 50 - 110 mg/dL [facility] LDL Cholesterol Calculated 151 (H) 0 - 129 mg/dL [facility] Comment: LDL Cholesterol is the primary guide to therapy: LDL-cholesterol goal in high risk patients is <100 mg/dL and in very high risk patients is <70 mg/dL. VLDL-Cholesterol 24 0 - 30 mg/dL [facility] Cholesterol/HDL Ratio 4.2 0.0 - 5.0 [facility] Specimen Anatomical Collection Method Collection Time Receive d Time (Source) Location / / Volume Laterality 07/12/2008 1:55 PM 9 2:00 CDT PM CDT Vincenzo Grimaldo MD LABORATORY Performing Organization Address City/[facility]/ZIP Code Phon e Number [facility] [address] [place] [address] [phone] [facility] A.M.A. BASIC METABOLIC PANEL (07/12/2008 1:55 PM CDT) athologist Signature Sodium 139 133 - 144 [facility] mmol/L [facility]INIC [facility] Potassium 3.9 3.4 - 5.3 [facility] mmol/L [facility] Chloride 99 94 - 109 [facility] mmol/L [facility] Carbon Dioxide 27 20 - 32 [facility] mmol/L [facility] Anion Gap 12 6 - 17 [facility] [place] mmol/L [facility] Glucose 98 60 - 99 [place] [place] mg/dL [facility] Urea Nitrogen 13 7 - 30 [facility] mg/dL [facility] Creatinine 0.71 0.52 - [place] [place] 1.04 mg/dL [facility]IC LAB Comment: New IDMS-traceable calibration beginning 07/13/07 GFR Estimate 87 >60 mL/min/1.7m2 [facility] GFR Estimate If Black >90 >60 mL/min/1.7m2 F [facility] Calcium 9.5 8.5 - 10.4 mg/dL [facility] Specimen Anatomical Collection Method Collection Time Receive d Time (Source) Location / / Volume Laterality 07/12/2008 1:55 PM 9 2:00 CDT PM CDT Vincenzo Grimaldo MD LABORATORY Performing Organization Address City/[facility]/ZIP Code Phon e Number [facility] [address] [place] [address] [phone] [facility] TSH W/FREE T4 REFLEX (07/12/2008 1:55 PM CDT) athologist Signature TSH 1.47 0.4 - 5.0 [facility] Specimen Anatomical Collection Method Collection Time Receive d Time (Source) Location / / Volume Laterality 07/12/2008 1:55 PM 9 2:00 CDT PM CDT Vincenzo Grimaldo MD LABORATORY Performing Organization Address City/State/ZIP Code Phon e Number [facility] [address] [place] [address] [facility] SED RATE, AUTO (07/12/2008 1:55 PM CDT) athologist Signature Sed Rate 20 0 - 30 mm/h [facility] Specimen Anatomical Collection Method Collection Time Receive d Time (Source) Location / / Volume Laterality 07/12/2008 1:55 PM 9 2:00 CDT PM CDT Vincenzo Grimaldo MD LABORATORY Performing Organization Address City/State/ZIP Code Phon e Number [facility] [address] [place], [place] [address] [address] [facility] CK, TOTAL (07/12/2008 1:55 PM CDT) athologist Signature CK Total 49 32 - 200 [facility] U/L [facility] Specimen Anatomical Collection Method Collection Time Receive d Time (Source) Location / / Volume Laterality 07/12/2008 1:55 PM 9 2:00 CDT PM CDT Vincenzo Grimaldo MD LABORATORY Performing Organization Address City/State/ZIP Code Phon e Number [address] [phone] [facility] A THIN LAYER PAP SCREEN (07/12/2008 12:00 AM CDT) Component Value Ref Test Analysis Performed At [facility] gist Range Method Time Signature PAP NIL COPATH Copath Report COPATH Patient Name: LUDA GARCIA MR#: [id number] Specimen #: [id number] Collected: 07/12/2008 Received: 07/15/2008 Reported: 07/17/2008 08:48 Ordering Phy(s): VINCENZO GRIMALDO SPECIMEN/STAIN PROCESS: Pap thin layer prep screening ([facility]) ? Pap-Cyto x 1, Reflex HPV x 1 SOURCE: Cervical, endocervical ---- Pap thin layer prep screening ([facility]) SPECIMEN ADEQUACY: Satisfactory for evaluation. -Transformation zone component present. CYTOLOGIC INTERPRETATION: Negative for Intraepithelial Lesion or Malignancy Electronically signed out by: STEPH So (ASCP) Processed and screened at [facility] CLINICAL HISTORY: Previous normal pap Date of Last Pap: 07/07/07, TESTING LAB LOCATION: [facility] [address] [place], [place] ??[address] COLLECTION SITE: Client: ??[facility] Location: RIIM (R) Specimen (Source) Anatomical Collection Method Collection Time Re ceived Time Location / / Volume Laterality 07/12/2008 07/15/2008 2:28 PM CDT Vincenzo Grimaldo MD LABORATORY Performing Organization Address City/State/ZIP Code Phon e Number [facility] documented in this encounter Visit Diagnoses Diagnosis Routine physical examination - Primary Routine general medical examination at a health care facility Edema Overweight Obesity, unspecified Myalgias Mylagia and myositis, unspecified UTERINE LEIOMYOMA NOS Leiomyoma of uterus, unspecified documented in this encounter Care Teams Bracelet Form Coverer Relationship Specialty Start Date End Date Vincenzo Grimaldo MD PCP - General 07/07/07 02/24/14 documented as of this encounter
--- OUTSIDE RECORDS SUMMARY | 2021-12-03 11:14 | XMS_ITS | Encounter Summary ---
:1955 Author Organization [place] Address [address] [place] [address] Care Team Providers Name Role Phone Unavailable Primary Care Provider Unavailable Encounter Details Date Type Department Care Team Description 12/03/[address] [facility] Abel Card MD Hospital Results [facility] OBGYN CONSULTS [address] [place] [address] (Wo rk) Social History Tobacco Use [...] Name Priority Date/Time Associated Diagnosis Comme nts C MAMMOGRAM, Routine 12/03/2005 3:53 PM Results f or this SCREENING CDT procedure are i n the results section. documented in this encounter Results MAMMOGRAM, SCREENING (12/03/2005 3:53 PM CDT) Specimen (Source) Anatomical Collection Method Collection Time Re ceived Time Location / / Volume Laterality 12/03/2005 3:53 PM CDT Impressions RADIOLOGY RESULTS - 12/08/2005 9:27 PM C DT SCREENING MAMMOGRAM, BILATERAL BREAST SYMPTOMS: ??None. PREVIOUS MAMMOGRAPHY: ??Comparison with [facility] dated 08/14/04 and 01/19/02. ?? BREAST PARENCHYMA: ??Fatty/mild densiti es. IMPRESSION: CATEGORY 1 Negative. TECHNOLOGIST INITIALS: ??CW This exam was evaluated with the assista nce of Computer Aided Detection (CAD). I have personally reviewed the image and initial interpretation and agree with the findings. Abel Card MD SPECIAL IMAGING STUDIES Performing Organization Address City/State/ZIP Code Phon e Number RADIOLOGY RESULTS documented in this encounter Visit Diagnoses Not on filedocumented in this encounter
--- OUTSIDE RECORDS SUMMARY | 2021-12-03 11:14 | XMS_ITS | Encounter Summary ---
:1955 Author Organization [place] Address [address] [place] [address] Care Team Providers Name Role Phone Vincenzo Grimaldo MD Primary Care Provider Arias Salvador MD Primary Care Provider Encounter Details Date Type Department Care Team Description 01/12/2008 Historic Results [facility] Heart Unknown, [facility] ider Clinic [address] [place] [address] Social History Tobacco Use Types Packs/Day Years [...] Name Priority Date/Time Associated Diagnosis Comme nts ECHO CARDIAC - HIM SCAN 01/12/2008 12:00 AM CDT - ARCHIVE documented in this encounter Results ECHO CARDIAC - HIM SCAN - ARCHIVE (01/12/2008 12:00 AM CDT) Specimen (Source) Anatomical Location Collection Method / Collectio n Time Received Time / Laterality Volume 01/12/2008 Narrative This result has an attachment that is no t available. Provider Scan CV ECHO ORDERABLES documented in this encounter Visit Diagnoses Not on filedocumented in this encounter Care Teams Manager Audio Relationship Specialty Start Date End Date Vincenzo Grimaldo MD PCP - General 07/07/07 02/24/14 Arias Salvador MD PCP - General 02/25/14 04/28/17 [facility] [address] [place] [address] documented as of this encounter
--- OUTSIDE RECORDS SUMMARY | 2021-12-03 11:14 | XMS_ITS | Encounter Summary ---
:1955 Author Organization [place] Address [address] [place] [id number] Care Team Providers Name Role Phone Vincenzo Grimaldo MD Primary Care Provider Reason for Visit Reason Onset Date Comments Patient Inquiry 07/14/2007 Encounter Details Date Type Department Care Team Description 07/14/2007 Telephone [facility] Vincenzo Grimaldo MD Patient Inquiry [place] [address] [facility] [address] [place] [address] [place] [address] [phone] Social History Tobacco Use Types Packs/Day Years Used Date Never Smoker Alcohol Use Standard Drinks/Week Comments Yes 0 (1 standard drink = 0.6 oz pure alcoho l) 5-6 glasses of wine a week Sex Assigned at Date Recorded Not on file documented as of this encounter Miscellaneous Notes Telephone Encounter - Vincenzo Grimaldo - 07/14/2007 1:04 PM CDT Advised proceeding with stress echo. Faxed Rx for Imitrex which she found helpful in sample form. Telephone Encounter - Feliciano Bello - 07/14/2007 10:00 AM CDT Pt calling. She was given samples of Imitrex and is now requesting a RX. She also states that she had an EKG done at the clinic which came back normal. She is wondering if she really does need to undergo a stress test. Please advise. Thank you. documented in this encounter Plan of Treatment Not on filedocumented as of this encounter Visit Diagnoses Diagnosis Migraine, unspecified, without mention o f intractable migraine without mention of status migrainosus - Primary documented in this encounter Care Teams Barber Relationship Specialty Start Date End Date Vincenzo Grimaldo MD PCP - General 07/07/07 02/24/14 documented as of this encounter
--- OUTSIDE RECORDS SUMMARY | 2021-12-03 11:14 | XMS_ITS | Encounter Summary ---
:1955 Author Organization [place] Address [address] [place] [address] Care Team Providers Name Role Phone Vincenzo Grimaldo MD Primary Care Provider Reason for Visit Reason Onset Date Comments Refill Request 03/31/2009 imtiaz Encounter Details Date Type Department Care Team Description 03/31/[address] [facility] Vincenzo Grimaldo MD [facility] [place] [address] [facility]) [address] [place] [address] [place] [address] [place], [place] [phone] (Wo rk) [address] [phone] Social History Tobacco Use Types Packs/Day Years Used Date Never Smoker Alcohol Use Standard Drinks/Week Comments Yes 0 (1 standard drink = 0.6 oz pure alcoho l) 5-6 glasses of wine a week Sex Assigned at Date Recorded Not on file documented as of this encounter Miscellaneous Notes Telephone Encounter - Pao Mcbride - 04/01/2009 1:20 PM CST faxed E I ASSISTANT Telephone Encounter - Vincenzo Grimaldo - 04/01/2009 12:50 PM CST Please fax written Rx. E I ASSISTANT Telephone Encounter - Soni Trores - 03/31/2009 9:29 AM CST Faxed request from pharmacy received for RF of imtiaz [place]. Last o/v 07/12/08. Last fill 03/05/09. Fax also states that pt will be leaving town on 04/03. Rx needs to be printed, manually signed and faxed topharmacy. Soni Torres RN E I ASSISTANT documented in this encounter Plan of Treatment Not on filedocumented as of this encounter Visit Diagnoses Diagnosis Insomnia - Primary Insomnia, unspecified documented in this encounter Care Teams Biopsychologist Relationship Specialty Start Date End Date Vincenzo Grimaldo MD PCP - General 07/07/07 02/24/14 documented as of this encounter
--- OUTSIDE RECORDS SUMMARY | 2021-12-03 11:14 | XMS_ITS | Encounter Summary ---
:1955 Author Organization [place] Address [address] [facility] [place] [address] Care Team Providers Name Role Phone Vincenzo Grimaldo MD Primary Care Provider Reason for Referral Referral not Required - Closed Specialty Diagnoses / Procedures Referred By Contact Refer red To Contact Diagnoses Chest pain, unspecified Vincenzo Grimaldo MD [facility] [address] [facility] [address] [place] [address] [place] [address] Phone: [phone] Fax: Referral ID Status Reason Start Date Expiration Date Visits Requ ested Visits Authorized [id number] Closed 12/29/2007 03/13/2011 1 1 Encounter Details Date Type Department Care Team Description 12/21/2007 Telephone [facility] Vincenzo Grimaldo MD [place] [address] [place], [place] [address] [place] [phone] Social History Tobacco Use Types Packs/Day Years Used Date Never Smoker Alcohol Use Standard Drinks/Week Comments Yes 0 (1 standard drink = 0.6 oz pure alcoho l) 5-6 glasses of wine a week Sex Assigned at Date Recorded Not on file documented as of this encounter Miscellaneous Notes Telephone Encounter - Pawel Hunt - 12/29/2007 3:04 PM CDT Ordered and faxed. Telephone Encounter - Johny Nair - 12/22/2007 8:14 AM CDT Plz order stress echo at [facility] for dx of chest pain; ordering physician is Dr. Grimaldo. Telephone Encounter - Karishma Moon - 12/21/2007 1:58 PM CDT Pt did not have stress test last spring when ordered. She would like to have it now. She is not having chest pain, but would like to have it for reassurance. documented in this encounter Plan of Treatment Not on filedocumented as of this encounter Visit Diagnoses Diagnosis Chest pain, unspecified - Primary documented in this encounter Care Teams Timber Buyer Relationship Specialty Start Date End Date Vincenzo Grimaldo MD PCP - General 07/07/07 02/24/14 documented as of this encounter
--- OUTSIDE RECORDS SUMMARY | 2021-12-03 11:14 | XMS_ITS | Encounter Summary ---
:1955 Author Organization [place] Address [address] [place] [address] Care Team Providers Name Role Phone Vincenzo Grimaldo MD Primary Care Provider Encounter Details Date Type Department Care Team Description 07/12/[address] [facility] Abel Card MD Hospital Results [facility] OBGYN CONSULTS [address] [place] [address] (Wo rk) Social History Tobacco [...] Priority Date/Time Associated Diagnosis Comme nts HC MAMMO SCREEN Routine 07/12/2008 12:48 PM Resul ts for this BILATATERAL, INCL CDT procedure are in CAD WHEN PERF the results section. documented in this encounter Results SCREENING MAMMOGRAPHY DIGITAL (BILAT) (07/12/2008 12:48 PM CDT) Specimen (Source) Anatomical Collection Method Collection Time Re ceived Time Location / / Volume Laterality 07/12/2008 12:48 PM CDT Impressions RADIOLOGY RESULTS - 07/12/2008 4:11 PM C DT SCREENING MAMMOGRAPHY, BILATERAL, DIGITA L w/CAD ??July 12, 2008. HISTORY/COMPARISON EXAMS: Routine. 2007, 08/14/2004 BREAST PARENCHYMAL PATTERN: ??Heterogene ously dense. FINDINGS: ??Right mammogram is unremarka ble. Deep in the outer left breast in the craniocaudad view is a new nodular density. Recommend additional mammography. Ultrasound if in dicated. ? IMPRESSION: ??BI-RADS 0, INCOMPLETE: NEE D ADDITIONAL IMAGING. Additional imaging evaluation recommende d: Diagnostic mammography. Breast ultrasound. Abel Card MD SPECIAL IMAGING STUDIES Performing Organization Address City/State/ZIP Code Phon e Number RADIOLOGY RESULTS documented in this encounter Visit Diagnoses Not on filedocumented in this encounter Care Teams Product Architect Relationship Specialty Start Date End Date Vincenzo Grimaldo MD PCP - General 07/07/07 02/24/14 documented as of this encounter
--- OUTSIDE RECORDS SUMMARY | 2021-12-03 11:14 | XMS_ITS | Encounter Summary ---
:1955 Author Organization [place] Address [address] [place] [address] Care Team Providers Name Role Phone Vincenzo Grimaldo MD Primary Care Provider Reason for Visit Reason Onset Date Comments Refill Request 07/29/2009 imtiaz Encounter Details Date Type Department Care Team Description 07/29/[address] [facility] Vincenzo Grimaldo MD [facility] [place] [address] [facility]) [address] [place], [place] [phone] Social History Tobacco Use Types Packs/Day Years Used Date Never Smoker Alcohol Use Standard Drinks/Week Comments Yes 0 (1 standard drink = 0.6 oz pure alcoho l) 5-6 glasses of wine a week Sex Assigned at Date Recorded Not on file documented as of this encounter Miscellaneous Notes Telephone Encounter - Pao Mcbride - 07/30/2009 2:50 PM CDT FAXED Telephone Encounter - Vincenzo Grimaldo - 07/30/2009 2:31 PM CDT Please fax written Rx. Telephone Encounter - HusamJuly - 07/29/2009 10:50 AM CDT pharmacy requesting refill, last fill 07/03/09 last OV 07/12/08 Rx needs to be printed, manually signed, and faxed to pharmacy [place] fax# [phone] documented in this encounter Plan of Treatment Not on filedocumented as of this encounter Visit Diagnoses Diagnosis Insomnia - Primary Insomnia, unspecified documented in this encounter Care Teams Medical Technologist Chief Relationship Specialty Start Date End Date Vincenzo Grimaldo MD PCP - General 07/07/07 02/24/14 documented as of this encounter
--- OUTSIDE RECORDS SUMMARY | 2021-12-03 11:14 | XMS_ITS | Encounter Summary ---
:1955 Author Organization [facility] Address [address] [place] [address] Care Team Providers Name Role Phone Vincenzo Grimaldo MD Primary Care Provider Reason for Visit Reason Onset Date Comments Refill Request 06/12/2008 [facility] Encounter Details Date Type Department Care Team Description 06/12/2008 Refill [facility] Vincenzo Grimaldo MD Refill Request ([facility]) [facility] [place] [address] [facility] [address] [facility] [address] [place], [place] [address] [phone] Social History Tobacco Use Types Packs/Day Years Used Date Never Smoker Alcohol Use Standard Drinks/Week Comments Yes 0 (1 standard drink = 0.6 oz pure alcoho l) 5-6 glasses of wine a week Sex Assigned at Date Recorded Not on file documented as of this encounter Miscellaneous Notes Telephone Encounter - Jess Fine - 06/12/2008 1:15 PM CDT Noted: PMD appt is scheduled for 07-12-2008. Telephone Encounter - Jess Fine - 06/12/2008 8:30 AM CDT [facility] faxing [facility] refill request. Called patient to remind Dr. Clemens needed in June for further refills. See Epic note 1-7-09. Patient states her insurance will not cover Dr. Barrios till August,. Will schedule appt with Dr Grimaldo in August. Routed to PMD per protocol. documented in this encounter Plan of Treatment Not on filedocumented as of this encounter Visit Diagnoses Diagnosis Edema - Primary documented in this encounter Care Teams Abstract Searcher Relationship Specialty Start Date End Date Vincenzo Grimaldo MD PCP - General 07/07/07 02/24/14 documented as of this encounter
--- OUTSIDE RECORDS SUMMARY | 2021-12-03 11:14 | XMS_ITS | Encounter Summary ---
:1955 Author Organization [place] Address [address] [place] [address] Care Team Providers Name Role Phone Vincenzo Grimaldo MD Primary Care Provider Encounter Details Date Type Department Care Team Description 07/18/2008 Results Only [facility] Abel Card MD Hospital Results [facility] OBGYN CONSULTS [address] [place] [address] (Wo rk) Social History Tobacco [...] Procedure Name Priority Date/Time Associated Comments Diagnosis C LT SONO BREAST Routine 07/18/2008 11:45 AM Resu lts for this CDT procedure are i n the results section. C DIAGNOSTIC MAMMO Routine 07/18/2008 10:23 AM Re sults for this DIGITAL LEFT, INCL CDT procedure are in CAD WHEN PERF the results section. documented in this encounter Results LT SONO BREAST (07/18/2008 11:45 AM CDT) Specimen (Source) Anatomical Collection Method Collection Time Re ceived Time Location / / Volume Laterality 07/18/2008 11:45 AM CDT Impressions RADIOLOGY RESULTS - 07/19/2008 2:02 PM C DT DIAGNOSTIC MAMMOGRAM, LEFT, DIGITAL - Ma y 2008 ULTRASOUND LEFT BREAST - July 12, 2008 REASON FOR EXAM: The patient is recalled from the screening mammogram of 07/12/2008 to assess a small round nodu lar density seen very deep in the lateral left breast in two projectio ns at about the 3 o'clock position. FINDINGS: Today we obtained a coned spot film x 2 deep in the left CC view and on the second of these the smal l nodule is redemonstrated. A true lateral also demonstrates the nodul e. On the screening left CC view and on today's true lateral view th e nodule appears very sharply marginated. On ultrasound of the left breast there i s a flat parallel-oriented simple cyst deep in the left breast 3 o' clock position at 8 cm. I scanned the surrounding area very broadl y and there was no other lesion. This would nicely explain the cu rrent nodule and its sharp margins on some of the mammographic view s. I have discussed these results with Concepción michelle today. She had many questions. We will continue to monitor w ith screening mammography. IMPRESSION: BI-RADS 2, BENIGN. ?? RECOMMENDATION: Continue screening mammo graphy. Abel Card MD SPECIAL IMAGING STUDIES Performing Organization Address City/State/ZIP Code Phon e Number RADIOLOGY RESULTS DIAGNOSTIC MAMMO DIGITAL LEFT (07/18/2008 10:23 AM CDT) Specimen (Source) Anatomical Collection Method Collection Time Re ceived Time Location / / Volume Laterality 07/18/2008 10:23 AM CDT Impressions RADIOLOGY RESULTS - 07/19/2008 2:02 PM C DT DIAGNOSTIC MAMMOGRAM, LEFT, DIGITAL - Ma y 2008 ULTRASOUND LEFT BREAST - July 12, 2008 REASON FOR EXAM: The patient is recalled from the screening mammogram of 07/12/2008 to assess a small round nodu lar density seen very deep in the lateral left breast in two projectio ns at about the 3 o'clock position. FINDINGS: Today we obtained a coned spot film x 2 deep in the left CC view and on the second of these the smal l nodule is redemonstrated. A true lateral also demonstrates the nodul e. On the screening left CC view and on today's true lateral view th e nodule appears very sharply marginated. On ultrasound of the left breast there i s a flat parallel-oriented simple cyst deep in the left breast 3 o' clock position at 8 cm. I scanned the surrounding area very broadl y and there was no other lesion. This would nicely explain the cu rrent nodule and its sharp margins on some of the mammographic view s. I have discussed these results with Concepción michelle today. She had many questions. We will continue to monitor w ith screening mammography. IMPRESSION: BI-RADS 2, BENIGN. ?? RECOMMENDATION: Continue screening mammo graphy. Abel Card MD SPECIAL IMAGING STUDIES Performing Organization Address City/State/ZIP Code Phon e Number RADIOLOGY RESULTS documented in this encounter Visit Diagnoses Not on filedocumented in this encounter Care Teams Shipmaster Relationship Specialty Start Date End Date Vincenzo Grimaldo MD PCP - General 07/07/07 02/24/14 documented as of this encounter
--- OUTSIDE RECORDS SUMMARY | 2021-12-03 11:14 | XMS_ITS | Encounter Summary ---
:1955 Author Organization [facility] Address [address] [place] [address] Care Team Providers Name Role Phone Vincenzo Grimaldo MD Primary Care Provider Reason for Visit Reason Comments Radiology Visit Encounter Details Date Type Department Care Team Description 07/17/2007 [facility] Only [facility] SCR EENING FOR OSTEOPOROSIS [place] (Primary Dx) [address] [facility] [address] [place] [address] Social History Tobacco Use Types Packs/Day Years [...] Procedure Name Priority Date/Time Associated Diagnosis Comme [facility] DEXA BONE DENSITY, Routine 07/17/2007 Screening For Resul ts for this >=1 SITE, AXIAL Osteoporosis procedure ar e in the [facility] results section . documented in this encounter Results DEXA,BONE DENSITY,AXIAL [place] (07/17/2007) Anatomical Region Laterality Modality Bone Mineral Density Impressions 07/17/2007 BONE DENSITOMETRY [facility] July 17, 2007 PATIENT: ??Gloria Bonilla CHART: <[id number]> : ??1955 AGE: ??51 year old SEX: ??female REFERRING PHYSICIAN: ??Vincenzo Grimaldo M.D, ?? PROCEDURE: ??Bone density scanning was p erformed using DEXA technology performed on a Speakap Scanner. ??Reporting is completed in the form of a T-score. ??Th e T-score represents the standard deviation from peak bone mass b ased on a young healthy adult. Tie Man performing scan: ??Chiquita Chino REFERENCE T-SCORES: ? Normal ? Greater than -1.0 ? Osteopenia ?-1.0 to -2.5 ? Osteoporosis ?? Less than -2.5 ? INDICATIONS: ??Family history of osteopo rosis CURRENT TREATMENT: ??None listed FINDINGS: ? Lumbar Spine L1-L4: ? ?Z-score -0.3 ? Left Femoral Neck: ?? Z-score 0.8 ? Right Femoral Neck: ? ?Z-score 0.6 IMPRESSION: Z-scores are ??within expected range for age. Use of T-score is not recommended for assessment of premen opausal women. Recommendations include ensuring adequat e Calcium (1000 mg/d) and Vitamin D ( 800 IU/d). Follow up can be considered 3 years afte r menopause. Daria Gerber M.D. Electronically signed ? Vincenzo Grimaldo MD SPECIAL IMAGING STUDIES documented in this encounter Visit Diagnoses Diagnosis Special screening for osteoporosis - Rosalee smith documented in this encounter Care Teams Account Planner Relationship Specialty Start Date End Date Vincenzo Grimaldo MD PCP - General 07/07/07 02/24/14 documented as of this encounter
--- OUTSIDE RECORDS SUMMARY | 2021-12-03 11:14 | XMS_ITS | Encounter Summary ---
:1955 Author Organization [facility] Address [address] [place] [address] Care Team Providers Name Role Phone Vincenzo Grimaldo MD Primary Care Provider Reason for Visit Reason Onset Date Comments Refill Request 03/04/2009 imtiaz Encounter Details Date Type Department Care Team Description 03/04/[address] [facility] Vincenzo Grimaldo MD [facility] [place] [address] [facility]) [address] [place], [place] [phone] Social History Tobacco Use Types Packs/Day Years Used Date Never Smoker Alcohol Use Standard Drinks/Week Comments Yes 0 (1 standard drink = 0.6 oz pure alcoho l) 5-6 glasses of wine a week Sex Assigned at Date Recorded Not on file documented as of this encounter Miscellaneous Notes Telephone Encounter - Norma Parsons - 03/05/2009 10:49 AM CST Faxed E [facility]OP Telephone Encounter - Vincenzo Grimaldo - 03/05/2009 8:32 AM CST Please fax written Rx. E HOP Telephone Encounter - Husam July - 03/04/2009 9:29 AM CST pharmacy requesting refill, last fill 01/28/09 last OV Rx needs to be printed, manually signed, and faxed to pharmacy [place] fax# [phone] E HOP documented in this encounter Plan of Treatment Not on filedocumented as of this encounter Visit Diagnoses Diagnosis Insomnia - Primary Insomnia, unspecified documented in this encounter Care Teams Superintendent Warehouse Relationship Specialty Start Date End Date Vincenzo Grimaldo MD PCP - General 07/07/07 02/24/14 documented as of this encounter
--- OUTSIDE RECORDS SUMMARY | 2021-12-03 11:14 | XMS_ITS | Encounter Summary ---
:1955 Author Organization [place] Address [address] [place] [address] Care Team Providers Name Role Phone Vincenzo Grimaldo MD Primary Care Provider Encounter Details Date Type Department Care Team Description 02/04/2009 Results Only [facility] Reinaldo Freeman MD Hospital Results [facility] [address] [place] [address] (Wo rk) Social History Tobacco [...] Name Priority Date/Time Associated Diagnosis Comme nts CT SCAN Routine 02/04/2009 11:59 PM Results for this ABDOMEN/PELVIS FRONT LINE LEADER procedure are in the results section. documented in this encounter Results CT SCAN ABDOMEN/PELVIS (02/04/2009 11:59 PM FRONT LINE LEADER) Specimen (Source) Anatomical Collection Method Collection Time Re ceived Time Location / / Volume Laterality 02/04/2009 11:59 PM FRONT LINE LEADER Impressions RADIOLOGY RESULTS - 02/05/2009 4:[address] ABDOMEN AND PELVIS WITHOUT CONTRAST ? ?02/04/2009 11:59 PM HISTORY: ??Flank pain. COMPARISON: ??None. TECHNIQUE: ??Without intravenous or oral contrast, helical sections were acquired from the top of the diaphr agm through the pubic symphysis. Coronal reconstructions were generated. (Renal cell protocol) FINDINGS: Right urinary tract: No renal or uretera l calculi. No dilatation of the intrarenal collecting system or uret er. Left urinary tract: No renal or ureteral calculi. No dilatation of the intrarenal collecting system or ureter. Urinary bladder: No visualized calculi. Remainder of the abdomen and pelvis: The liver, spleen, pancreas, and adrenal glands are unremarkable to the l imits of a noncontrast CT scan. The gallbladder is present. The sm all and large bowel are normal in caliber. The appendix is unremarkable . No bowel wall thickening, pneumatosis or free intraperitoneal gas. The uterus is present. No enlarged lymph nodes or free fluid in th e abdomen or pelvis. Scan through the lower chest is signific ant for a few small calcified granulomas within the right lung. IMPRESSION: 1. No renal or ureteral calculi or evide nce of urinary obstruction. 2. No other cause of abdominal pain iden tified. The appendix appears normal. Preliminary interpretation was conveyed to the clinical service by Dr. Luciano on 02/04/2009 at 2345 hours. Reinaldo Cottrell MD SPECIAL IMAGING STUDIES Performing Organization Address City/State/ZIP Code Phon e Number RADIOLOGY RESULTS documented in this encounter Visit Diagnoses Not on filedocumented in this encounter Care Teams Air Conditioning Mechanic Industrial Relationship Specialty Start Date End Date Vincenzo Grimaldo MD PCP - General 07/07/07 02/24/14 documented as of this encounter
--- OUTSIDE RECORDS SUMMARY | 2021-12-03 11:14 | XMS_ITS | Encounter Summary ---
:1955 Author Organization [facility] Address [facility] [place] [address] Care Team Providers Name Role Phone Idania Grimaldo MD Primary Care Provider Reason for Referral Referral not Required - Closed Specialty Diagnoses / Procedures Referred By Contact Refer red To Contact Diagnoses Cervicalgia Headache(784.0) Idania Grimaldo MD [facility] [address] [place] [address] [address] [facility] [address] Phone: Fax: Referral ID Status Reason Start Date Expiration Date Visits Requ ested Visits Authorized [id number] Closed 08/22/2009 08/22/2009 1 1 Reason for Visit Reason Comments Physical Encounter Details Date Type Department Care Team Description 08/22/2009 Office Visit [facility] Idania Grimaldo MD Annual Physical Exam; [facility] [place] [address] Tdap Vaccine; [address] Overweight; [place], [place] Insomnia; [place] [address] Backache; [address] Cervicalgia; [phone] Headache; Arthralgias Social History Tobacco Use Types Packs/Day Years [...] Sign Reading Time Taken Comments Blood Pressure 110/74 08/22/2009 8:42 AM CDT Pulse 68 08/22/2009 8:42 AM CDT Temperature - - Respiratory Rate - - Oxygen Saturation - - Inhaled Oxygen Concentration - - Weight 94.3 kg (208 lb) 08/22/2009 8:42 AM CDT Height 177.8 cm (5' 10) 08/22/2009 8:42 AM CDT Body Mass Index 29.84 08/22/2009 8:42 AM CDT documented in this encounter Progress Notes Idania Grimaldo - 08/22/2009 9:27 AM CDT Gloria Garcia presents for periodic exam. She has been bothered by severe pains in the neck and occiput for several months. She has been seeing a chiropractor regularly who has advised that she have an MRI or whole spine X-ray. Pains are predominantly over the right nape of the neck into the trapezius region, but do not radiate into the arm. No weakness or numbness or pain into the arms. She also describes a constant dull pain in her right flank/back region, with occasional sharp knife-like pains. She had similar symptoms in January 2009 when she presented to [facility] ED and was diagnosed with a kidney infection. She denies recent dysuria or hematuria, fever or chills. Past Medical History Diagnosis Date ??? 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 Leiomyoma of Uterus, Unspecified Current Outpatient Rx Name Route Sig Dispense Refill ??? AMBIEN CR 12.5 MG PO TBCR Oral 1 TABLET AT BEDTIME NEEDED 30 Tab 0--due for office appt Pt due for office f/u appt. ??? MAXZIDE-25 37.5-25 MG PO TABS Oral 1 po qd PRN for edema 90 One year Past Surgical History Procedure Date ??? Arthroscopy knee rt/lt 04/2005 Left knee meniscus repair Family History Problem Relation ??? Arthritis Mother age 87, had severe RA ??? C.A.D. Father age 67, first NE in his 20's or 30's (?); had a history of scarlet fever ??? Stroke Mother TIA ??? Hypertension Son 2 SONS WITH ENLARGED VENTRICLE - TREATED BY CARDS AT [facility] ??? C.A.D. Brother Born 1940, NE at age 69, also lumbar fusion ??? Family History Negative Sister One at age 2 yo. ??? Family History Negative Brother Born 1941 ??? Thyroid Sister Born 1953, lumbar fusion ??? Thyroid Sister Born 1946, lumbar fusion History Social History ??? Marital Status: Spouse Name: Sebas Number of Children: 3 ??? 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 Tobacco Use: Never ??? Alcohol Use: Yes 4-5 glasses of wine a week ??? Drug Use: No ??? Sexually Active: Not on file Other Topics Concern ??? Not on file Social History Narrative Walking 2-3 times/week. ROS: Chronic insomnia, takes Ambien CR nightly. Admits to being a worrier, not to being depressed. Her PHQ-9 score is +5. Wears trifocals. Suspects some hearing loss. Has seasonal allergies. Notes heartburn in the past, not recently. Had a normal colonoscopy on at [facility]. Sees dermatology for eczema in the fingers. Chronic diffuse pains in her back, hips and knees. Does note drinking a lot of water and frequent urination. REVIEW OF SYSTEMS are as listed above or negative for the following: Constitutional, HEENT, respiratory, cardiovascular, gastrointestinal, genitourinary, musculoskeletal, dermatologic, hematologic, endocrine, psychiatric, and neurologic systems. OBJECTIVE: Well-appearing middle-aged female in no distress. BP 110/74 Pulse 68 Ht 5' 10 (1.778 m) Wt 208 lb (94.348 kg) LMP 12/22/2008 Head normal. Eyes are normal. PERRLA, corneas, [...] noted. Cervix normal. Uterus anteverted and mobile, perhaps mildly enlarged without tenderness. Adnexa not palpable. Exam chaparoned by Nurse. Skin: Normal to inspection and palpation. Ext: All four extremities normal to inspection and palpation. Lymph: No cervical, axillary or inguinal lymphadenopathy. Neuro: Alert, well-oriented. Speech fluent. CN II-XII intact. Moves all extremities with equal strength and facility. DTR's symmetric to all extremities. Gait narrow-based. UA: moderate leukocyte esterase, negative nitrites, 2-5 RBC's and 2-5 WBC's/HPF. ASSESS/PLAN: V70.0E Annual Physical Exam Comment: Stable health. See epic orders. Plan: A THIN LAYER PAP SCREEN, VITAMIN D DEFICIENCY SCREENING, A.M.A. BASIC METABOLIC PANEL, AST, ALANINE AMINO (ALT) (SGPT), LIPID PANEL, REFLEX TO DIRECT LDL, CBC WITH PLATELETS, TSH W/FREE T4 REFLEX, VITAMIN D 1000 UNIT PO TABS V06.1K Tdap Vaccine Plan: TDAP (ADACEL AGES 11-64) 278.00J Overweight Plan: TSH W/FREE T4 REFLEX 780.52A Insomnia 724.5T Backache Comment: Nonspecific UA. Plan: UA WITH MICRO 723.1 Cervicalgia Comment: X-ray shows significant degenerative changes. Offered neurology consult, Rx for tramadol. Plan: X-RAY CERV SPINE 2 VW, CONSULT NEUROLOGY, TRAMADOL HCL 50 MG PO TABS 784.0 Headache Comment: See above. Plan: X-RAY CERV SPINE 2 VW, CONSULT NEUROLOGY, TRAMADOL HCL 50 MG PO TABS 719.40H Arthralgias Comment: Check inflammatory markers. Plan: RHEUMATOID FACTOR, CRP, INFLAMMATION, SED RATE, AUTO documented in this encounter Nursing Notes 08/22/2009 8:45 AM CDT >> CECI ALBRECHT Fri Aug 22, 2009 8:47 AM Patient presents with: Physical Initial BP 110/74 Pulse 68 Ht 5' 10 (1.778 m) Wt 208 lb (94.348 kg) LMP 12/22/2008 Estimated Body mass index is 29.84 kg/(m^2) as calculated from the following: Height as of this encounter: 5' 10(1.778 m). Weight as of this encounter: 208 lb(94.348 kg).. BP completed using cuff size: large No results found for this or any previous visit.] Last colonoscopy, men and women age 50 and older every ten years (when and where): Last flex sig, men and women age 50 and older every five years (when and where): PAP NIL 07/12/2008 Women 21-64 years of age seen 03/14-03/13 must have pap at least every 3 years. if no Pap in system (when and where): Last Mammo: Having it later today Females age 40 and older must have every year, (when and where): Immunization Status Reviewed: up to date and documented If studies done outside of [facility], have pt sign KARINA. Pend orders for studies not done. SOHEILA Agrawal documented in this encounter Plan of Treatment Not on filedocumented as of this encounter Procedures Procedure Name Priority Date/Time Associated Comments Diagnosis HCL URINALYSIS WITH Routine 08/22/2009 9:58 Backache Resul ts for this MICROSCOPIC AM CDT procedure are i n the results section. HCL LIPID PANEL, REFLEX Routine 08/22/2009 9:57 Annual Physica l Results for this TO DIRECT LDL AM CDT Exam procedure are in the results section. HCL 25 HYDROXYVITAMIN Routine 08/22/2009 9:57 Annual Physical Results for this D2 & D3 AM CDT Exam procedure are i n the results section. HCL CRP, INFLAMMATION Routine 08/22/2009 9:57 Arthralgias Res ults for this AM CDT procedure are i n the results section. CL AFF CBC WITH Routine 08/22/2009 9:57 Annual Physical Result s for this PLATELETS AM CDT Exam procedure are i n the results section. HCL BASIC METABOLIC Routine 08/22/2009 9:57 Annual Physical Re sults for this PANEL AM CDT Exam procedure are i n the results section. HCL TSH W/FREE T4 Routine 08/22/2009 9:57 Annual Physical Resu lts for this REFLEX AM CDT Exam procedure are in Overweight the results section. HCL RHEUMATOID FACTOR Routine 08/22/2009 9:57 Arthralgias Res ults for this AM CDT procedure are i n the results section. HCL SED RATE (ESR) Routine 08/22/2009 9:57 Arthralgias Result s for this AM CDT procedure are i n the results section. HCL ALT Routine 08/22/2009 9:57 Annual Physical Results f or this AM CDT Exam procedure are i n the results section. HCL AST Routine 08/22/2009 9:57 Annual Physical Results f or this AM CDT Exam procedure are i n the results section. HC X-RAY CERV SPINE 2-3 JOELLE 08/22/2009 9:52 Cervical juanita Results for this VIEWS AM CDT Headache procedure are i n the results section. HCL PAP THIN LAYER Routine 08/22/2009 12:00 Annual Physical Re sults for this SCREEN AM CDT Exam procedure are i n the results section. documented in this encounter Results (ABNORMAL) UA WITH MICRO (08/22/2009 9:58 AM CDT) [facility] Method Time Signature Color Urine Yellow [facility] Appearance Urine Clear [facility] Glucose Urine Negative NEG mg/dL [facility] Bilirubin Urine Negative NEG [facility] Ketones Urine Negative NEG mg/dL [facility] Specific [place] 1.020 1.003 - [place] Urine 1.035 [facility] pH Urine 6.5 5.0 - 7.0 [place] pH [facility] Protein Albumin Negative NEG mg/dL [place] Urine [facility] Urobilinogen 0.2 0.2 - 1.0 [place] Urine EU/dL [facility] Nitrite Urine Negative NEG [facility] Blood Urine Large (A) NEG [facility] Leukocyte Moderate (A) NEG [place] Esterase Urine [facility] Source Midstream [place] Urine [facility] WBC Urine 2-5 (A) 0 - 2 [place] /HPF [facility] RBC Urine 2-5 (A) 0 - [address] [facility] Squamous Moderate (A) FEW /LPF [place] Epithelial /LPF [facility] Urine [facility] Bacteria Urine Moderate (A) NEG /HPF [facility] Specimen Anatomical Collection Method Collection Time Receive d Time (Source) Location / / Volume Laterality 08/22/2009 9:58 AM 0 CDT 10:03 AM CDT Idania Grimaldo MD LABORATORY Performing Organization Address City/State/ZIP Code Phon e Number [place] [address] [place], [place] [address] [address] [facility] SED RATE, AUTO (08/22/2009 9:57 AM CDT) P athologist Signature Sed Rate 24 0 - 30 mm/h [facility] Specimen Anatomical Collection Method Collection Time Receive d Time (Source) Location / / Volume Laterality 08/22/2009 9:57 AM 0 CDT 10:02 AM CDT Idania Grimaldo MD LABORATORY Performing Organization Address City/[facility]/ZIP Code Phon e Number [place] [address] [place], [place] [address] [address] [facility] CRP, INFLAMMATION (08/22/2009 9:57 AM CDT) Analysis Performed At Patho logist Time Signature CRP Inflammation 7.2 0.0 - 8.0 [facility] mg/L [facility] Specimen Anatomical Collection Method Collection Time Receive d Time (Source) Location / / Volume Laterality 08/22/2009 9:57 AM 0 CDT 10:02 AM CDT Idania Grimaldo MD LABORATORY Performing Organization Address City/State/ZIP Code Phon e Number [facility] [address] [place] [address] [facility] RHEUMATOID FACTOR (08/22/2009 9:57 AM CDT) athologist Signature Rheumatoid 12 0 - 14 [facility] Factor IU/mL [facility] Specimen Anatomical Collection Method Collection Time Receive d Time (Source) Location / / Volume Laterality 08/22/2009 9:57 AM 0 CDT 10:02 AM CDT Idania Grimaldo MD LABORATORY Performing Organization Address City/State/ZIP Code Phon e Number [facility] [address] [place] [address] [facility] TSH W/FREE T4 REFLEX (08/22/2009 9:57 AM CDT) athologist Signature TSH 1.33 0.4 - 5.0 [facility] mU/L [facility] LAB Specimen Anatomical Collection Method Collection Time Receive d Time (Source) Location / / Volume Laterality 08/22/2009 9:57 AM 0 CDT 10:02 AM CDT Idania Grimaldo MD LABORATORY Performing Organization Address City/State/ZIP Code Phon e Number [facility] [address] [place] [address] [facility] CBC WITH PLATELETS (08/22/2009 9:57 AM CDT) athologist Signature WBC 5.1 4.0 - 11.0 [place] 10e9/L [facility] RBC Count 4.24 3.8 - 5.2 [place] 10e12/L [facility] Hemoglobin 13.2 11.7 - [facility] 15.7 g/dL [facility] Hematocrit 39.7 35.0 - [facility] 47.0 % [facility] MCV 94 78 - 100 [facility] MCH 31.1 26.5 - [facility] 33.0 pg [facility] MCHC 33.2 31.5 - [facility] 36.5 g/dL [facility] RDW 12.7 10.0 - [facility] 15.0 % [facility] Platelet Count 249 150 - 450 [place] 10e9/L [facility] Specimen Anatomical Collection Method Collection Time Receive d Time (Source) Location / / Volume Laterality 08/22/2009 9:57 AM 06/11/201 0 CDT 10:02 AM CDT Idania Grimaldo MD LABORATORY Performing Organization Address City/[facility]/ZIP Code Phon e Number [facility] [address] [place], [place] [address] [address] [facility] (ABNORMAL) LIPID PANEL, REFLEX TO DIRECT LDL (08/22/2009 9:57 AM CDT) athologist Signature Cholesterol 213 (H) 0 - 200 [facility] mg/dL CLINIC LAB Comment: LDL Cholesterol is the primary guide to therapy. The NCEP recommends further evaluation of: patients with cholesterol <200 mg/dL if additional risk factors are present, cholesterol >240 mg/dL, triglycerides >150 mg/dL, or HDL <40 mg/dL. Triglycerides 142 0 - 150 mg/dL [facility] HDL Cholesterol 64 50 - 110 mg/dL [facility] LDL Cholesterol Calculated 121 0 - 129 mg/dL [facility] Comment: LDL Cholesterol is the primary guide to therapy: LDL-cholesterol goal in high risk patients is <100 mg/dL and in very high risk patients is <70 mg/dL. VLDL-Cholesterol 28 0 - 30 mg/dL [facility] Cholesterol/HDL Ratio 3.4 0.0 - 5.0 [facility] Specimen Anatomical Collection Method Collection Time Receive d Time (Source) Location / / Volume Laterality 08/22/2009 9:57 AM 0 CDT 10:02 AM CDT Idania Grimaldo MD LABORATORY Performing Organization Address City/[facility]/ZIP Code Phon e Number [facility] [address] [place] [address] [facility] ALANINE AMINO (ALT) (SGPT) (08/22/2009 9:57 AM CDT) athologist Signature ALT 20 0 - 50 U/L [facility] Specimen Anatomical Collection Method Collection Time Receive d Time (Source) Location / / Volume Laterality 08/22/2009 9:57 AM 0 CDT 10:02 AM CDT Idania Grimaldo MD LABORATORY Performing Organization Address City/[facility]/ZIP Code Phon e Number [facility] [address] [facility] [place] [address] [phone] [facility] AST (08/22/2009 9:57 AM CDT) athologist Signature AST 22 0 - 45 U/L [facility] Specimen Anatomical Collection Method Collection Time Receive d Time (Source) Location / / Volume Laterality 08/22/2009 9:57 AM 0 CDT 10:02 AM CDT Idania Grimaldo MD LABORATORY Performing Organization Address City/State/ZIP Code Phon e Number [facility] [address] [facility] [place] [address] [phone] [facility] (ABNORMAL) A.M.A. BASIC METABOLIC PANEL (08/22/2009 9:57 AM CDT) athologist Signature Sodium 141 133 - 144 [place] mmol/L [facility] Potassium 4.1 3.4 - 5.3 [place] mmol/L [facility] Chloride 100 94 - 109 [place] mmol/L [facility] Carbon Dioxide 26 20 - 32 [place] mmol/L [facility] Anion Gap 14 6 - 17 [place] mmol/L [facility] Glucose 107 (H) 60 - 99 [place] mg/dL [facility] Urea Nitrogen 19 7 - 30 [place] mg/dL [facility] Creatinine 0.72 0.52 - [place] 1.04 mg/dL [facility] Comment: New IDMS-traceable calibration beginning 07/13/07 GFR Estimate 85 >60 mL/min/1.7m2 [facility] GFR Estimate If Black >90 >60 mL/min/1.7m2 [facility] Calcium 9.7 8.5 - 10.4 mg/dL [facility] Specimen Anatomical Collection Method Collection Time Receive d Time (Source) Location / / Volume Laterality 08/22/2009 9:57 AM 0 CDT 10:02 AM CDT Idania Grimaldo MD LABORATORY Performing Organization Address City/State/ZIP Code Phon e Number [facility] [address] [facility] [place] [address] [phone] [facility] VITAMIN D DEFICIENCY SCREENING (08/22/2009 9:57 AM CDT) Component Value Ref Test Analysis Performed At [place] Method Time Signature 25 [place] Vit D2 <5 ug/L [facility] 25 [place] Vit D3 43 ug/L [facility] 25 [place] Vit D <48 30 - 75 [facility] total Season, race, dietary intake, and treatm ent affect the concentration of ug/L [place] 02-sykhfzy-Hrurigp D. Values may decrease during elba er months and increase [facility] during summer months. Values less than 30 ug/L may indicate Vitamin D deficiency. Specimen Anatomical Collection Method Collection Time Receive d Time (Source) Location / / Volume Laterality 08/22/2009 9:57 AM 0 CDT 10:02 AM CDT Idania Grimaldo MD LABORATORY Performing Organization Address City/State/ZIP Code Phon e Number [facility] [address] [place] [address] [facility] X-RAY CERV SPINE 2 VW (08/22/2009 9:52 AM CDT) Anatomical Region Laterality Modality Other Specimen (Source) Anatomical Collection Method Collection Time Re ceived Time Location / / Volume Laterality 08/22/2009 9:52 AM CDT Impressions 08/23/2009 10:11 AM CDT CERVICAL SPINE TWO TO THREE VIEWS August 122009 9:52 AM HISTORY: Cervicalgia, headache. COMPARISON: None. FINDINGS: Cervical spine is visualized t o the T1 vertebral level. Loss of normal lordosis may be partially posi tional and partially related to degenerative change in the low cervic al spine. There is loss of intervertebral disc space at C5-C6 and C 6-C7 and to a lesser degree at C4-C5. Marginal osteophyte formation in the low cervical spine is also consistent with degenerative change. No fracture or teja malalignment is evident. The prevertebral soft tissue s are normal. IMPRESSION: Degenerative change in the l ow cervical spine, as above. Idania Grimaldo MD GENERAL IMAGING A THIN LAYER PAP SCREEN (08/22/2009 12:00 AM CDT) Component Value Ref Test Analysis Performed At [place] Method Time Signature PAP NIL COPATH Copath Report COPATH Patient Name: GLORIA GARCIA MR#: [id number] Specimen #: [id number] Collected: 08/22/2009 Received: 08/25/2009 Reported: 08/26/2009 14:23 Ordering Phy(s): IDANIA GRIMALDO SPECIMEN/STAIN PROCESS: Pap thin layer prep screening ([facility]) ? Pap-Cyto x 1, Reflex HPV x 1 SOURCE: Cervical, endocervical ---- Pap thin layer prep screening ([facility]) SPECIMEN ADEQUACY: Satisfactory for evaluation. -Transformation zone component present. CYTOLOGIC INTERPRETATION: Negative for Intraepithelial Lesion or Malignancy Electronically signed out by: ALEXANDRE Monterroso ( ASCP) Processed and screened at [facility] CLINICAL HISTORY: LMP: 12-22-08 Previous normal pap Date of Last Pap: 07-12-08, Papanicolaou Test Limitations: ??Cervical cytology is a scre ening test with limited sensitivity; regular screening is critical for cancer prevention; Pap tests are primarily effective for the diagnosis/prevention of squamous cell carcinoma, not adenoca rcinomas or other cancers. TESTING LAB LOCATION: [address] ??[phone] COLLECTION SITE: Client: ??[facility] Location: [place] (R) Specimen (Source) Anatomical Collection Method Collection Time Re ceived Time Location / / Volume Laterality 08/22/2009 08/25/2009 10:1 1 AM CDT Idania Grimaldo MD LABORATORY Performing Organization Address City/State/ZIP Code Phon e Number [place] documented in this encounter Visit Diagnoses Diagnosis Annual physical exam Routine general medical examination at a health care facility Tdap vaccine Need for prophylactic vaccination with c ombined uygjtljqhk-edgeyyk-xlcnpscln (DTP) vaccine Overweight Obesity, unspecified Insomnia Insomnia, unspecified Backache Backache, unspecified Cervicalgia Headache(784.0) Headache Arthralgias Pain in joint, site unspecified documented in this encounter Care Teams Doughnut Batter Mixer Relationship Specialty Start Date End Date Idania Grimaldo MD PCP - General 07/07/07 02/24/14 documented as of this encounter
--- OUTSIDE RECORDS SUMMARY | 2021-12-03 11:14 | XMS_ITS | Encounter Summary ---
:1955 Author Organization [place] Address [address] [place] [address] Care Team Providers Name Role Phone Vincenzo Grimaldo MD Primary Care Provider Encounter Details Date Type Department Care Team Description 02/04/2009 Historic Results [facility] Vincenzo Grimaldo MD [place] [address] [facility] 303 [facility] [address] [place] [address] [place], [place] [phone] (Wo rk) [phone] [phone] Social History Tobacco Use Types Packs/Day Years [...] Procedure Name Priority Date/Time Associated Comments Diagnosis HCG QUALITATIVE URINE STAT 02/04/2009 10:30 Re sults for this PM PHOTOCOPIER TECHNICIAN procedure are i n the results section. ROUTINE UA WITH STAT 02/04/2009 10:30 Results for this MICROSCOPIC PM PHOTOCOPIER TECHNICIAN procedure are i n the results section. URINE CULTURE Routine 02/04/2009 10:30 Results fo r this PM PHOTOCOPIER TECHNICIAN procedure are i n the results section. documented in this encounter Results (ABNORMAL) Routine UA with microscopic (02/04/2009 10:30 PM PHOTOCOPIER TECHNICIAN) [facility] Method Time Signature Source Midstream MISYS Urine Color Urine Straw MISYS Appearance Urine Slightly MISYS Cloudy Glucose Urine Negative NEG mg/dL MISYS Bilirubin Urine Negative NEG MISYS Ketones Urine Negative NEG mg/dL MISYS Specific [place] 1.018 1.003 - MISYS Urine 1.035 Blood Urine Negative NEG MISYS pH Urine 5.0 5.0 - 7.0 MISYS pH Protein Albumin Negative NEG mg/dL MISYS Urine Urobilinogen Normal 0.0 - 2.0 MISYS mg/dL mg/dL Nitrite Urine Negative NEG MISYS Leukocyte Large (A) NEG MISYS Esterase Urine WBC Urine 6 (H) 0 - 2 MISYS /HPF RBC Urine 2 0 - 2 MISYS /HPF Squamous 2 (H) 0 - 1 MIS[place] Epithelial /HPF /HPF Urine Bacteria Urine Few (A) NEG /HPF MISYS Mucous Urine Present (A) NEG /LPF MISYS Specimen Anatomical Collection Method Collection Time Receive d Time (Source) Location / / Volume Laterality 02/04/2009 10:30 02/04/2009 PM PHOTOCOPIER TECHNICIAN 10:39 PM PHOTOCOPIER TECHNICIAN Reinaldo Garvin MD LAB - URINE ORDERABLES Performing Organization Address City/State/ZIP Code Phon e Number MISYS HCG qualitative urine (02/04/2009 10:30 PM PHOTOCOPIER TECHNICIAN) athologist Signature HCG Qual Urine Negative NEG MISYS Comment: This test provides a presumptive diagno sis of or non-. A confirmed diagnosis should on ly be made by a physician after all clinical and laboratory findings have b een evaluated. Specimen Anatomical Collection Method Collection Time Receive d Time (Source) Location / / Volume Laterality 02/04/2009 10:30 02/04/2009 PM PHOTOCOPIER TECHNICIAN 10:39 PM PHOTOCOPIER TECHNICIAN Reinaldo Garvin MD LAB - URINE ORDERABLES Performing Organization Address City/State/ZIP Code Phon e Number MISYS Urine culture (02/04/2009 10:30 PM PHOTOCOPIER TECHNICIAN) [facility] Method Time Signature Specimen Midstream MISYS Description Urine Culture Micro <10,000 MISYS colonies/mL Multiple species present, probable perineal contamination . Micro Report FINAL MISYS Status 02/06/2009 Specimen Anatomical Collection Method Collection Time Receive d Time (Source) Location / / Volume Laterality 02/04/2009 10:30 02/05/2009 1:39 PM PHOTOCOPIER TECHNICIAN AM PHOTOCOPIER TECHNICIAN Vincenzo Grimaldo MD LAB - MICRO GENERAL ORDERABL ES Performing Organization Address City/State/ZIP Code Phon e Number MISYS documented in this encounter Visit Diagnoses Not on filedocumented in this encounter Care Teams Supervisor Instant Potato Processing Relationship Specialty Start Date End Date Vincenzo Griamldo MD PCP - General 07/07/07 02/24/14 documented as of this encounter
--- OUTSIDE RECORDS SUMMARY | 2021-12-03 11:14 | XMS_ITS | Encounter Summary ---
:1955 Author Organization [place] Address [address] [place] [address] Care Team Providers Name Role Phone Vincenzo Grimaldo MD Primary Care Provider Reason for Visit Reason Onset Date Comments Refill Request 11/29/2007 [facility] Encounter Details Date Type Department Care Team Description 11/29/2007 Refill [facility] Vincenzo Grimaldo MD Refill Request ([facility] [place] [address] [facility] ) [address] [place], [place] [phone] Social History Tobacco Use Types Packs/Day Years Used Date Never Smoker Alcohol Use Standard Drinks/Week Comments Yes 0 (1 standard drink = 0.6 oz pure alcoho l) 5-6 glasses of wine a week Sex Assigned at Date Recorded Not on file documented as of this encounter Miscellaneous Notes Telephone Encounter - Feliciano Bello - 11/29/2007 3:23 PM CDT Last OV 07/07/07, BP 110/60, creat, na and k+ wnl. RN unable to RF med per SO protocol d/t historicalmed class. authorization required. Thank you. documented in this encounter Plan of Treatment Not on filedocumented as of this encounter Visit Diagnoses Diagnosis Edema - Primary documented in this encounter Care Teams Aerial Gunner Superintendent Relationship Specialty Start Date End Date Vincenzo Grimaldo MD PCP - General 07/07/07 02/24/14 documented as of this encounter
--- OUTSIDE RECORDS SUMMARY | 2021-12-03 11:14 | XMS_ITS | Encounter Summary ---
:1955 Author Organization [place] Address [address] [facility] [place] [address] Care Team Providers Name Role Phone Vincenzo Grimaldo MD Primary Care Provider Reason for Referral Referral not Required - Closed Specialty Diagnoses / Procedures Referred By Contact Refer red To Contact Diagnoses Chest pain, unspecified Vincenzo Grimaldo MD [facility] [address] [facility] [address] [place] [address] [place] [address] Phone: [phone] Fax: Referral ID Status Reason Start Date Expiration Date Visits Requ ested Visits Authorized [id number] Closed 07/07/2007 03/13/2011 1 1 Reason for Visit Reason Comments Physical pt c/o having chest tighness on/off the past 3 weeks,pap Encounter Details Date Type Department Care Team Description 07/07/2007 Office Visit [facility] Vincenzo Grimaldo ROUTIN E MEDICAL EXAM (Primary Dx); Clinic [place] CHEST PAIN NOS; [address] UTERINE LEIOM YOMA NOS; [address] SCREENING [place] [address] [phone] Social History Tobacco Use Types Packs/Day Years Used Date Never Smoker Alcohol Use Standard Drinks/Week Comments Yes 0 (1 standard drink = 0.6 oz pure alcoho l) 5-6 glasses of wine a week Sex Assigned at Date Recorded Not on file documented as of this encounter Last Filed Vital Signs Vital Sign Reading Time Taken Comments Blood Pressure 110/60 07/07/2007 10:00 AM CDT Pulse 72 07/07/2007 10:00 AM CDT Temperature - - Respiratory Rate - - Oxygen Saturation - - Inhaled Oxygen Concentration - - Weight 97.1 kg (214 lb) 07/07/2007 10:00 AM CDT Height 177.8 cm (5' 10) 07/07/2007 10:00 AM CDT Body Mass Index 30.71 07/07/2007 10:00 AM CDT documented in this encounter Progress Notes Vincenzo Grimaldo - 07/07/2007 10:37 AM CDT Luda Diggs Chad presents for periodic exam with additional concerns about chest discomfort. About three weeks ago she started noting some episodes of diffuse anterior chest tightness, especially at night and not with exertion. Episodes would last about 15 minutes or so, with a sense of taking my breath away but not really shortness of breath, perhaps slight nausea, no sweats. Discomfort was also felt into the back near the right shoulder blade. She noted these episodes for about a week,but none in the past couple of weeks. Past Medical History Diagnosis Date ??? HISTOPLASMOSIS NEC ~2000 treated at [facility] ??? UTERINE LEIOMYOMA NOS Current Outpatient Rx Name Route Sig Dispense Refill ??? MAXZIDE-25 37.5-25 MG OR TABS Oral 1 po qd PRN for edema 90 0 Past Surgical History Procedure Date ??? Arthroscopy knee rt/lt 04/2005 Left knee meniscus repair Family History Problem Relation ??? Arthritis Mother Born 1921, has severe RA ??? C.A.D. Father age 67, first [place] in his 20's or 30's (?); had a history of scarlet fever ??? Stroke Mother TIA ??? Hypertension Son 2 SONS WITH ENLARGED VENTRICLE - TREATED BY CARDS AT [facility] History Social History ??? Marital Status: Spouse [...] on file Social History Narrative Walking 2-3 times/week, about three miles. ROS: Trouble sleeping for about a year. Tylenol PM helps with sleep and bilateral hip pains. Husbandhas noted a strange breathing pattern during sleep. No daytime fatigue. Wears corrective lenses for near vision. Some slight hearing loss on the right. Occasional heartburn, uses antacids less than once weekly. Some bilateral hip pains especially when lying on either side at night, and some bilateral knee pain. REVIEW OF SYSTEMS are as listed above or negative for the following: Constitutional, HEENT, respiratory, cardiovascular, gastrointestinal, genitourinary, musculoskeletal, dermatologic, hematologic, endocrine, psychiatric, and neurologic systems. OBJECTIVE: Well-appearing middle-aged female in no distress. BP 110/60 Pulse 72 Ht 5' 10 (1.78m) Wt 214 lbs (97.1kg) Head normal. Eyes are normal. PERRLA, corneas, [...] normal. Uterus anteverted and mobile, somewhat enlarged c/w prior diagnosis of leiomyoma. No tenderness. Adnexa not palpable, no masses or tenderness. Exam chaparoned by Nurse. Skin: Normal to inspection and palpation. Ext: All four extremities normal to inspection and palpation. Lymph: No cervical, axillary or inguinal lymphadenopathy. Neuro: Alert, well-oriented. Speech fluent. CN II-XII intact. Moves all extremities with equal strength and facility. DTR's symmetric to all extremities. Gait narrow-based. Chest X-Ray(PA & Lateral): Reviewed. No cardiomegaly, masses, effusions or infiltrates seen. 12-Lead EKG: Reviewed. Sinus rhythm. Normal axis and intervals. No significant ST-T wave abnormalities or acute ischemic changes. ASSESS/PLAN: V70.0 ROUTINE MEDICAL EXAM (primary encounter diagnosis) Note: Stable health. See epic orders. Plan: A THIN LAYER PAP SCREEN, SONO PELVIS COMPLETE, CHEST X-RAY 2 VW, ELECTROCARDIOGRAM, COMP W/READ, A.M.A. BASIC METABOLIC PANEL, A.M.A. LIPID PANEL, ALANINE AMINO (ALT) (SGPT), AST, HGB, TSH W/FREE T4 REFLEX 786.50 CHEST PAIN NOS Note: Suspect non-cardiac, but believe stress echo warranted. Consider further workup such as gallbladder ultrasound if symptoms recurrent. Plan: CHEST X-RAY 2 VW, ELECTROCARDIOGRAM, COMP W/READ, A.M.A. BASIC METABOLIC PANEL, CONSULT [facility]ART, OFFICE/OUTPT VISIT,EST,LEVL III 218.9 UTERINE LEIOMYOMA NOS Note: Update pelvic ultrasound. Plan: SONO PELVIS COMPLETE V82.81 SCREENING FOR OSTEOPOROSIS Plan: DEXA,BONE DENSITY,AXIAL SKELETON Follow-up with me in a year, call or schedule a follow-up appointment sooner prn if any problems. documented in this encounter Nursing Notes 07/07/2007 10:00 AM CDT >> TOMAS KIMBLE 07/07/2007 10:03 am Patient presents with: Physical - pt c/o having chest tighness on/off the past 3 weeks,pap. Pt trnsferrring from Dr Paz will transfer records. Last pap: 06/2006 normal Last mammo: 03/31/2007 Last colonoscopy: 2 years ago per pt at [facility] Last dexa: none Last TD: pt not sure initial BP 110/60 Pulse 72 Ht 5' 10 (1.78m) Wt 214 lbs (97.1kg) Body mass index is 30.71 kg/(m^2).. bp completed using cuff size large documented in this encounter Plan of Treatment Not on filedocumented as of this encounter Procedures Procedure Name Priority Date/Time Associated Diagnosis Comme nts HC CHEST TWO VIEWS, Routine 07/07/2007 11:28 Chest pain, Resu lts for this FRONT/LAT AM CDT unspecified procedure are in Routine general the results medical examination section. at a [facility] care facility HCL HEMOGLOBIN Routine 07/07/2007 11:19 Routine Medical Exam R esults for this NONLAB AM CDT procedure are i n the results section. HCL BASIC METABOLIC Routine 07/07/2007 11:19 Routine Med ical Exam Results for this PANEL AM CDT Chest Pain Nos procedure are in the results section. HCL TSH W/FREE T4 Routine 07/07/2007 11:19 Routine Medical Exa m Results for this REFLEX AM CDT procedure are i n the results section. HCL ALT Routine 07/07/2007 11:19 Routine Medical Exam Res ults for this AM CDT procedure are i n the results section. HCL AST Routine 07/07/2007 11:19 Routine Medical Exam Res ults for this AM CDT procedure are i n the results section. CL AFF A.M.A. LIPID Routine 07/07/2007 11:19 Routine Medical E xam Results for this PANEL AM CDT procedure are i n the results section. ZZC Routine 07/07/2007 11:11 Chest Pain Nos ELECTROCARDIOGRAM, AM CDT Routine Medical Exam COMP W/READ HCL PAP THIN LAYER Routine 07/07/2007 12:00 Routine Medical Ex am Results for this SCREEN AM CDT procedure are i n the results section. documented in this encounter Results CHEST X-RAY 2 VW (07/07/2007 11:28 AM CDT) Anatomical Region Laterality Modality Other Specimen (Source) Anatomical Collection Method Collection Time Re ceived Time Location / / Volume Laterality 07/07/2007 11:28 AM CDT Impressions 07/10/2007 7:29 AM CDT CHEST TWO VIEW* HISTORY: Chest pain FINDINGS: Small nodule in the right midl zeus. Comparison with old chest films or CT recommended for further eval uation. Chest otherwise negative. Vincenzo Grimaldo MD GENERAL IMAGING TSH W/FREE T4 REFLEX (07/07/2007 11:19 AM CDT) P athologist Signature TSH 1.55 0.4 - 5.0 [facility] mU/L [facility] Specimen Anatomical Collection Method Collection Time Receive d Time (Source) Location / / Volume Laterality 07/07/2007 11:19 07/07/2007 AM CDT 11:24 AM CDT Vincenzo Grimaldo MD LABORATORY Performing Organization Address City/State/ZIP Code Phon e Number [facility] [address] [place] [address] [facility] HGB (07/07/2007 11:19 AM CDT) athologist Signature Hemoglobin 12.5 11.7 - 15.7 [facility] g/dL [facility] Specimen Anatomical Collection Method Collection Time Receive d Time (Source) Location / / Volume Laterality 07/07/2007 11:19 07/07/2007 AM CDT 11:24 AM CDT Vincenzo Grimaldo MD LABORATORY Performing Organization Address City/[facility]/ZIP Code Phon e Number [facility] [address] [place], [place] [address] [address] [facility] AST (07/07/2007 11:19 AM CDT) athologist Signature AST 21 0 - 45 U/L [facility] Specimen Anatomical Collection Method Collection Time Receive d Time (Source) Location / / Volume Laterality 07/07/2007 11:19 07/07/2007 AM CDT 11:24 AM CDT Vincenzo Grimaldo MD LABORATORY Performing Organization Address City/[facility]/ZIP Code Phon e Number [facility] [address] [place] [address] [facility] ALANINE AMINO (ALT) (SGPT) (07/07/2007 11:19 AM CDT) athologist Signature ALT 13 0 - 50 U/L [facility] Specimen Anatomical Collection Method Collection Time Receive d Time (Source) Location / / Volume Laterality 07/07/2007 11:19 07/07/2007 AM CDT 11:24 AM CDT Vincenzo Grimaldo MD LABORATORY Performing Organization Address [facility] Phon e Number [facility] [address] [place] [address] [phone] [facility] (ABNORMAL) A.M.A. LIPID PANEL (07/07/2007 11:19 AM CDT) athologist Signature Cholesterol 212 (H) 0 - 200 [facility] mg/dL CLINIC LAB Comment: LDL Cholesterol is the primary guide to therapy: LDL-cholesterol goal in high risk patients is <100 mg/dL and in very high risk patients is <70 mg/dL. The NCEP recommends further evaluation of: patients with cholesterol <200 mg/dL if additional risk factors are present, cholesterol >240 mg/dL, triglycerides >150 mg/dL, or HDL <40 mg/dL. Triglycerides 75 0 - 150 mg/dL [facility] HDL Cholesterol 47 (L) 50 - 110 mg/dL [facility] LDL Cholesterol Calculated 151 (H) 0 - 129 mg/dL [facility] Comment: LDL Cholesterol is the primary guide to therapy: LDL-cholesterol goal in high risk patients is <100 mg/dL and in very high risk patients is <70 mg/dL. VLDL-Cholesterol 15 0 - 30 mg/dL [facility] Cholesterol/HDL Ratio 4.5 0.0 - 5.0 [facility] Specimen Anatomical Collection Method Collection Time Receive d Time (Source) Location / / Volume Laterality 07/07/2007 11:19 07/07/2007 AM CDT 11:24 AM CDT Vincenzo Grimaldo MD LABORATORY Performing Organization Address [facility] Phon e Number [facility] [address] [place] [address] [phone] [facility] (ABNORMAL) A.M.A. BASIC METABOLIC PANEL (07/07/2007 11:19 AM CDT) P athologist Signature Sodium 135 133 - 144 [place] mmol/L [facility] Potassium 3.7 3.4 - 5.3 [place] mmol/L [facility] Chloride 99 94 - 109 [place] mmol/L [facility] Carbon Dioxide 28 20 - 32 [place] mmol/L [facility] Anion Gap 9 6 - 17 [place] mmol/L [facility] Glucose 104 (H) 60 - 99 [place] mg/dL [facility] Urea Nitrogen 13 7 - 30 [place] mg/dL [facility] Creatinine 0.77 0.60 - [facility] 1.30 mg/dL [facility] GFR Estimate 84 >60 [place] mL/min/1.7 [facility] m2 LAB GFR Estimate If >90 >60 [place] Black mL/min/1.7 [facility] m2 LAB Calcium 9.1 8.5 - 10.4 [place] mg/dL [facility] Specimen Anatomical Collection Method Collection Time Receive d Time (Source) Location / / Volume Laterality 07/07/2007 11:19 07/07/2007 AM CDT 11:24 AM CDT Vincenzo Grimaldo MD LABORATORY Performing Organization Address City/State/ZIP Code Phon e Number [facility] [address] [place] [phone] [facility] ELECTROCARDIOGRAM, COMP W/READ (07/07/2007 11:11 AM CDT) Narrative This result has an attachment that is no t available. Vincenzo Grimaldo MD EKG TECHNICAL A THIN LAYER PAP SCREEN (07/07/2007 12:00 AM CDT) Component Value Ref Test Analysis Performed At [facility] Method Time Signature PAP NIL COPATH Copath Report COPATH Patient Name: LUDA GARCIA MR#: [id number] Specimen #: [id number] Collected: 07/07/2007 Received: 07/10/2007 Reported: 07/11/2007 11:42 Ordering Phy(s): VINCENZO GRIMALDO SPECIMEN/STAIN PROCESS: Pap thin layer prep screening ([facility]) ? Pap-Cyto x 1, Reflex HPV x 1 SOURCE: Cervical, endocervical ---- Pap thin layer prep screening ([facility]) SPECIMEN ADEQUACY: Satisfactory for evaluation. -Transformation zone component present. CYTOLOGIC INTERPRETATION: Negative for Intraepithelial Lesion or Malignancy Electronically signed out by: ALEXANDRE Lynch (ASCP) Processed and screened at [facility] CLINICAL HISTORY: TESTING LAB LOCATION: [facility] [address] [place], [place] ??[address] COLLECTION SITE: Client: ??[facility] Location: RIIM (R) Specimen (Source) Anatomical Collection Method Collection Time Re ceived Time Location / / Volume Laterality 07/07/2007 07/10/2007 8:44 AM CDT Vincenzo Grimaldo MD LABORATORY Performing Organization Address City/State/ZIP Code Phon e Number [place] documented in this encounter Visit Diagnoses Diagnosis Routine general medical examination at a health care facility - Primary Chest pain, unspecified Leiomyoma of uterus, unspecified Special screening for osteoporosis documented in this encounter Care Teams Ore Storage Drier Relationship Specialty Start Date End Date Vincenzo Grimaldo MD PCP - General 07/07/07 02/24/14 documented as of this encounter
--- OUTSIDE RECORDS SUMMARY | 2021-12-03 11:14 | XMS_ITS | Encounter Summary ---
:1955 Author Organization [place] Address [facility] [place] [address] Care Team Providers Name Role Phone Vincenzo Grimaldo MD Primary Care Provider Reason for Referral - Closed Specialty Diagnoses / Procedures Referred By Contact Refer red To Contact Diagnoses Cervicalgia Vincenzo Grimaldo MD [address] [place] [address] Referral ID Status Reason Start Date Expiration Date Visits Requ ested Visits Authorized [id number] Closed 08/26/2009 08/26/2009 1 1 Reason for Visit Reason Onset Date Comments Referral 08/25/2009 surgical specialist Encounter Details Date Type Department Care Team Description 08/25/2009 [facility] Vincenzo Grimaldo MD Referral ([facility] [place] [address] specialist) [address] [place] [address] [place], [place] [phone] (Wo rk) [address] [phone] Social History Tobacco Use Types Packs/Day Years [...] this encounter Miscellaneous Notes Telephone Encounter - Rae Pao - 08/26/2009 2:23 PM CDT Left msg. Telephone Encounter - Vincenzo Grimaldo - 08/26/2009 1:12 PM CDT Ordered MRI and spine surgery consult. Please advise pt. Telephone Encounter - Soni Torres - 08/25/2009 10:14 AM CDT Pt calling--she called neurology to set up an appt but they told her that she should be seeing a surgical specialist instead. She is calling to get a new referral. Please advise. Soni Torres RN documented in this encounter Plan of Treatment Not on filedocumented as of this encounter Visit Diagnoses Diagnosis Cervicalgia - Primary documented in this encounter Care Teams Dried Fruit Washer Relationship Specialty Start Date End Date Vincenzo Grimaldo MD PCP - General 07/07/07 02/24/14 documented as of this encounter
--- OUTSIDE RECORDS SUMMARY | 2021-12-03 11:14 | XMS_ITS | Encounter Summary ---
:1955 Author Organization [place] Address [address] [place] [address] Care Team Providers Name Role Phone Vincenzo Grimaldo MD Primary Care Provider Reason for Visit Reason Onset Date Comments Refill Request 05/01/2009 imtiaz Encounter Details Date Type Department Care Team Description 05/01/2009 Refill [facility] Vincenzo Grimaldo MD [facility] [place] [address] [facility]) [address] [place], [place] [phone] Social History Tobacco Use Types Packs/Day Years Used Date Never Smoker Alcohol Use Standard Drinks/Week Comments Yes 0 (1 standard drink = 0.6 oz pure alcoho l) 5-6 glasses of wine a week Sex Assigned at Date Recorded Not on file documented as of this encounter Miscellaneous Notes Telephone Encounter - Pao Mcbride - 05/02/2009 1:08 PM CST Faxed EAR MEDICINE OFFICER Telephone Encounter - Vincenzo Grimaldo - 05/02/2009 12:53 PM CST Please fax written Rx. EAR MEDICINE OFFICER Telephone Encounter - HusamJuly - 05/01/2009 9:01 AM CST pharmacy requesting refill, last fill 04/01/09 last OV 07/12/08 Rx needs to be printed, manually signed, and faxed to pharmacy [facility] fax# [phone] EAR MEDICINE OFFICER documented in this encounter Plan of Treatment Not on filedocumented as of this encounter Visit Diagnoses Diagnosis Insomnia - Primary Insomnia, unspecified documented in this encounter Care Teams Welder/Fitter Relationship Specialty Start Date End Date Vincenzo Grimaldo MD PCP - General 07/07/07 02/24/14 documented as of this encounter
--- OUTSIDE RECORDS SUMMARY | 2021-12-03 11:14 | XMS_ITS | Encounter Summary ---
:1955 Author Organization [place] Address [address] [place] [address] Care Team Providers Name Role Phone Vincenzo Grimaldo MD Primary Care Provider Reason for Visit Reason Onset Date Comments Refill Request 06/03/2009 imtiaz Encounter Details Date Type Department Care Team Description 06/03/2009 Refill [facility] Vincenzo Grimaldo MD [facility] [place] [address] [facility]) [address] [place], [place] [id number] [phone] Social History Tobacco Use Types Packs/Day Years Used Date Never Smoker Alcohol Use Standard Drinks/Week Comments Yes 0 (1 standard drink = 0.6 oz pure alcoho l) 5-6 glasses of wine a week Sex Assigned at Date Recorded Not on file documented as of this encounter Miscellaneous Notes Telephone Encounter - Pao Mcbride - 06/04/2009 8:57 AM CDT faxed Telephone Encounter - Vincenzo Grimaldo - 06/04/2009 8:47 AM CDT Please fax written Rx. Telephone Encounter - HusamJuly - 06/03/2009 12:45 PM CDT pharmacy requesting refill, last fill 05/02/09 last OV 07/12/08 Rx needs to be printed, manually signed, and faxed to pharmacy [place] fax# [phone] documented in this encounter Plan of Treatment Not on filedocumented as of this encounter Visit Diagnoses Diagnosis Insomnia - Primary Insomnia, unspecified documented in this encounter Care Teams Ship Boss Relationship Specialty Start Date End Date Vincenzo Grimaldo MD PCP - General 07/07/07 02/24/14 documented as of this encounter
--- OUTSIDE RECORDS SUMMARY | 2021-12-03 11:14 | XMS_ITS | Encounter Summary ---
:1955 Author Organization [place] Address [address] [place] [address] Care Team Providers Name Role Phone Vincenzo Grimaldo MD Primary Care Provider Encounter Details Date Type Department Care Team Description 07/16/2007 Medical Correspondence [facility] Vincenzo Grimaldo, [facility] Tatianna GRULLON [address] [place] [address] [facility] [address] [place] [phone] Social History Tobacco Use Types Packs/Day Years [...] on filedocumented in this encounter Care Teams Firearms Expert Relationship Specialty Start Date End Date Vincenzo Grimaldo MD PCP - General 07/07/07 02/24/14 documented as of this encounter
--- OUTSIDE RECORDS SUMMARY | 2021-12-03 11:14 | XMS_ITS | Encounter Summary ---
:1955 Author Organization [place] Address [address] [place] [address] Care Team Providers Name Role Phone Vincenzo Grimaldo MD Primary Care Provider Reason for Visit Reason Onset Date Comments Patient Request 12/16/2008 sleeping pill Encounter Details Date Type Department Care Team Description 12/16/2008 Telephone [facility] Vincenzo Grimaldo MD Patient Request [facility] [place] [address] (sleeping pill) [address] [place], [place] [phone] Social History Tobacco Use Types Packs/Day Years Used Date Never Smoker Alcohol Use Standard Drinks/Week Comments Yes 0 (1 standard drink = 0.6 oz pure alcoho l) 5-6 glasses of wine a week Sex Assigned at Date Recorded Not on file documented as of this encounter Miscellaneous Notes Telephone Encounter - Pao Mcbride - 01/03/2009 8:21 AM CDT faxed Telephone Encounter - Vincenzo Grimaldo - 01/03/2009 8:04 AM CDT Spoke with pt. Please fax written Rx. Telephone Encounter - Husam July - 01/02/2009 3:34 PM CDT Patient calling again, she is still waiting to hear regarding order for sleeping med-please advise Telephone Encounter - Rodger, Susi - 12/25/2008 4:39 PM CDT Pt calling again. Would like med to help her sleep. Doesn't have a problem getting to sleep but has a problem staying asleep. Please advise, thanks. Telephone Encounter - Christiana Rodriguez RN - 12/16/2008 2:33 PM CDT Pt calls to request a sleeping pill. States this was discussed at last OV 07/12/08. Has not had a emmy sleep in two years. Pt also requests to have lab work drawn for Rheumatoid arthritis. Is really worried about getting RA because of family history. Please advise. Thanks. documented in this encounter Plan of Treatment Not on filedocumented as of this encounter Visit Diagnoses Diagnosis Insomnia - Primary Insomnia, unspecified documented in this encounter Care Teams Case Filler Relationship Specialty Start Date End Date Vincenzo Grimaldo MD PCP - General 07/07/07 02/24/14 documented as of this encounter
--- OUTSIDE RECORDS SUMMARY | 2021-12-03 11:14 | XMS_ITS | Encounter Summary ---
:1955 Author Organization [facility] Address [address] [place] [address] Care Team Providers Name Role Phone Vincenzo Grimaldo MD Primary Care Provider Reason for Visit Reason Comments Radiology Visit Encounter Details Date Type Department Care Team Description 07/17/2007 [facility] Only [facility] SCR EENING FOR OSTEOPOROSIS [place] (Primary Dx) [address] [facility] [address] [place] [address] Social History Tobacco Use Types Packs/Day Years Used Date Never Smoker Alcohol Use Standard Drinks/Week Comments Yes 0 (1 standard drink = 0.6 oz pure alcoho l) 5-6 glasses of wine a week Sex Assigned at Date Recorded Not on file documented as of this encounter Plan of Treatment Not on filedocumented as of this encounter Visit Diagnoses Diagnosis Special screening for osteoporosis - [facility] documented in this encounter Care Teams Supervisor Network Control Operators Relationship Specialty Start Date End Date Vincenzo Grimaldo MD PCP - General 07/07/07 02/24/14 documented as of this encounter
--- OUTSIDE RECORDS SUMMARY | 2021-12-03 11:14 | XMS_ITS | Encounter Summary ---
:1955 Author Organization [facility] Address [address] [place] [address] Care Team Providers Name Role Phone Vincenzo Grimaldo MD Primary Care Provider Reason for Visit Reason Onset Date Comments Patient/info Update 01/17/2008 Encounter Details Date Type Department Care Team Description 01/17/2008 Telephone [facility] Vincenzo Grimaldo MD Patient/info Update [facility] [place] [address] [facility] [address] [facility] [address] [place], [place] [phone] Social History Tobacco Use Types Packs/Day Years Used Date Never Smoker Alcohol Use Standard Drinks/Week Comments Yes 0 (1 standard drink = 0.6 oz pure alcoho l) 5-6 glasses of wine a week Sex Assigned at Date Recorded Not on file documented as of this encounter Miscellaneous Notes Telephone Encounter - Addie Birmingham - 01/19/2008 10:38 AM CST Patient advised. Addie Birmingham MA OPERATIONS MANAGER Telephone Encounter - Vincenzo Grimaldo - 01/18/2008 7:47 PM CST Gall bladder ultrasound is the next step--ordered. Please advise pt that radiology should be contacting her soon to schedule. OPERATIONS MANAGER Telephone Encounter - Feliciano Bello - 01/17/2008 4:29 PM CST Pt calling. She states that she was made aware that her stress test came back normal. She continues experiencing pain. She is concerned and thinks that it could be her gallbladder. She is requesting PCP advise on what the next course of action should be. Thank you. OPERATIONS MANAGER documented in this encounter Plan of Treatment Not on filedocumented as of this encounter Procedures Procedure Name Priority Date/Time Associated Diagnosis Comme nts US ABDOMEN Routine 02/16/2008 9:27 AM Chest Pain Results for this COMPLETE FARM OPERATIONS MANAGER procedure are i n the results section. documented in this encounter Results SONO ABDOMEN COMPLETE (02/16/2008 9:27 AM FARM OPERATIONS MANAGER) Anatomical Region Laterality Modality Other Specimen (Source) Anatomical Collection Method Collection Time Re ceived Time Location / / Volume Laterality 02/16/2008 9:27 AM FARM OPERATIONS MANAGER Impressions 02/16/2008 9:37 AM FARM OPERATIONS MANAGER US ABDOMEN COMPLETE* Feb 16, 2008 9:27:00 AM HISTORY: Abdominal pain. FINDINGS: ??Negative gallbladder, common bile duct, liver, pancreas and spleen. Negative kidneys, aorta and IVC. IMPRESSION: ?? Negative exam. Vincenzo Grimaldo MD SPECIAL IMAGING STUDIES documented in this encounter Visit Diagnoses Diagnosis Chest pain - Primary Chest pain, unspecified documented in this encounter Care Teams Tankroom Worker Relationship Specialty Start Date End Date Vincenzo Grimaldo MD PCP - General 07/07/07 02/24/14 documented as of this encounter
--- OUTSIDE RECORDS SUMMARY | 2021-12-03 11:15 | XMS_ITS | Encounter Summary ---
:1955 Author Organization [email or web address] Address [address] [place] [address] Care Team Providers Name Role Phone Non Pn, Clinician MD Primary Care Provider Unavailable Reason for Visit Reason Comments Ankle Problem Encounter Details Date Type Department Care Team Description 11/23/2021 Therapy [place] [facility] Lyndon Davis ea, PT History of ankle surgery (Primary Dx); Therapy [address] Acute pain of left hip [address] [address] [place] [address] [phone] Social History Tobacco Use Types Packs/Day Years Used Date Smoking Tobacco: Never Alcohol Use Standard Drinks/Week Comments No 0 (1 standard drink = 0.6 oz pure alcoho l) Sex Assigned at Date Recorded Not on file documented as of this encounter Progress Notes Simon Davis, PT - 11/23/2021 11:00 AM CDT [facility] Progress Note Visit Number: 3 Initial Certification Period: 10/15/2021 to 12/14/21 Referring Provider: James Ramirez Surgical Procedure: Right ankle arthroscopy with extensive anterior soft tissue and bone debridement, right ankle loose body excision, and right ankle modified Brostrom procedure augmented with an InternalBrace Surgical Date: 09/21/21 Visit Diagnosis: 1. History of ankle surgery 2. Acute pain of left hip Precautions: WBAT SUBJECTIVE: Gloria is now 9 weeks s/p ankle surgery. She did roll her ankle once over the weekend but otherwise reports nothing new with the R ankle. L glute pain seems to be improving. It doesn't hurt as much withmost things but ascending stairs is still really painful. Requests new printout of HEP as her's got misplaced over the weekend. OBJECTIVE Current Objective Findings: Palpation: tenderness and tightness glute max, tenderness quadratus femoris Treatment/Education Today: Therapeutic exercise x 26 minutes: - verbally reviewed HEP and reprinted for home - prone heel squeeze with glute set 5 seconds x 10 reps - supine ankle DF, PF, inversion, eversion with green resistance band x 20 reps each - standing heel raises x 10 reps, toes out x 10 reps, toes in x 10 reps - bent knee heel raises x 10 reps - balance on bosu with intermittent UE support x 60 seconds, on flat side x 60 seconds - 4 forward step ups with L LE x 10 reps - 4 lateral step ups with L LE x 10 reps Manual therapy x 12 minutes: MFR/STM L gluteus maximum and quadratus femoris Timed Code Treatment Minutes: 38 Total Treatment Minutes: 38 Current Home Exercise Program List: Access Code: [email or web address] Heel Raises with Counter Support - 2 x daily - 5 x weekly - 2 sets - 10 reps Standing Heel Raise with Toes Turned Out - 2 x daily - 5 x weekly - 2 sets - 10 reps Single Leg Stance with Support (Mirrored) - 2 x daily - 5 x weekly - 2 sets - 1 reps - 30 hold Squat with Counter Support - 2 x daily - 5 x weekly - 2 sets - 10 reps Seated Hamstring Stretch (Mirrored) - 2 x daily - 7 x weekly - 2 reps - 30 seconds hold Supine Bridge - 2 x daily - 5 x weekly - 2 sets - 10 reps Supine Piriformis Stretch with Leg Straight (Mirrored) - 2 x daily - 7 x weekly - 2 reps - 30 seconds hold ASSESSMENT/PROGRESS TOWARD GOALS: Patient tolerates resistance band ankle strengthening well and with control and minimal fatigue. Fatigues easily with weightbearing ankle strength and proprioception. Manual therapy and exercises for Lglute well-tolerated. Functional Goals/Outcomes: HEP/Independent Management: Demonstrate independence with HEP and self- management following each treatment session. - MET, ongoing ADL's: Squat with proper body mechanics with minimal/no symptoms in 8-12 weeks. Driving: Drive with ease and safety in 6 weeks. - MET Ambulation: Ambulate with normal gait pattern with minimal to no symptoms/limp in 4-6 weeks. - PROGRESSING Ascend/descend stairs independently with reciprocal pattern with ease in 8-12 weeks. 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 - PROGRESSING PLAN: Manual therapy as needed to address gluteal soft tissue restriction, progress gluteal strength as tolerated, progress ankle strength and proprioception documented in this encounter Plan of Treatment Upcoming Encounters Date Type Specialty Care Team Description 12/17/2021 Appointment Physical Therapy Simon Davis, PT [address] [place], [place] [address] (Wo rk) documented as of this encounter Visit Diagnoses Diagnosis History of ankle surgery - Primary Acute pain of left hip documented in this encounter Care Teams Show Host/Hostess Relationship Specialty Start Date End Date Non Pn, Clinician, PCP - General 04/23/13 [place] [address] documented as of this encounter
--- OUTSIDE RECORDS SUMMARY | 2021-12-03 11:15 | XMS_ITS | Encounter Summary ---
:1955 Author Organization [facility] Address [address] [place] [address] Care Team Providers Name Role Phone Non Pn, Clinician MD Primary Care Provider Unavailable Reason for Visit Reason Comments Spine Lumbar Ankle Problem Encounter Details Date Type Department Care Team Description 07/16/2021 Therapy [place] [facility] Lyndon Davis ea, PT Status post lumbar surgery (Primary Dx); Therapy [address] Sprain of anterior talofibul ar ligament of right ankle, subsequent encounter [address] [address] [place] [address] [phone] Social History Tobacco Use Types Packs/Day Years Used Date Smoking Tobacco: Never Alcohol Use Standard Drinks/Week Comments No 0 (1 standard drink = 0.6 oz pure alcoho l) Sex Assigned at Date Recorded Not on file documented as of this encounter Progress Notes Simon Davis, PT - 07/16/2021 1:00 PM CDT [facility] Progress Note Visit Number: 11 (visit 2 for ankle) Initial Certification Period: 05/20/2021 to 08/18/21 Referring Provider: Jose Khan Surgery: Right L2-3 minimally invasive TLIF Surgical date: 04/27/21 Visit Diagnosis: 1. Status post lumbar surgery 2. Sprain of anterior talofibular ligament of right ankle, subsequent encounter Precautions: L2/3 fusion, lifting up to 25 pounds SUBJECTIVE: Gloria reports that her back is still feeling good and the ankle is doing well with her new exercises. Gets frustrated that the ankle is so weak but knows it will take time to get better. OBJECTIVE Current Objective Findings: Gait: mild trendelenberg limp R LE - improving Treatment/Education Today: Therapeutic exercise x 28 minutes: - verbally reviewed HEP and updated for home - pallof press with blue resistance band x 10 reps bilaterally - standing trunk rotation with blue resistance band x 10 reps bilaterally - squats with 7# weighted ball x 10 reps - lift with bilateral 8# dumbbells x 10 reps - DF, PF, inversion, eversion with orange resistance band x 10 reps x 2 sets each Neuromuscular re-education x 8 minutes: - balance on foam with horizontal and vertical head turns x 10 reps each - balance on bosu with fingertip support x 60 seconds, on flat side x 60 seconds - side to side weight shift on flat side of bosu x 20 reps Timed Code Treatment Minutes: 36 Total Treatment Minutes: 36 Current Home Exercise Program List: Lumbar Spine Access Code: [email or web address] Prone Hip Extension - 2 x daily - 5 x weekly - 2 sets - 10 reps Butterfly Bridge - 2 x daily - 5 x weekly - 10 reps - 2 sets Hooklying Sequential Leg March and Lower - 2 x daily - 5 x weekly - 10 reps - 2 sets Supine Single Leg Extensions - 2 x daily - 5 x weekly - 2 sets - 10 reps Hooklying Active Hamstring Stretch - 2 x daily - 5 x weekly - 10 reps Supine Piriformis Stretch with Leg Straight - 2 x daily - 5 x weekly - 2 reps - 30 seconds hold Plank on Knees - 2 x daily - 5 x weekly - 2 reps - 45 seconds hold Squat with Chair Touch - 2 x daily - 5 x weekly - 2 sets - 10 reps Half Lift with Dumbbell - 2 x daily - 5 x weekly - 2 sets - 10 reps Ankle Access Code: [email or web address] Isometric Ankle Eversion at Wall - 2 x daily - 7 x weekly - 2 sets - 10 reps - 5 seconds hold Heel rises with counter support - 2 x daily - 7 x weekly - 2 sets - 10 reps Step balance - 2 x daily - 7 x weekly - 2 sets - 10 reps Gastroc Stretch on Wall - 2 x daily - 7 x weekly - 2 reps - 30 seconds hold Standing Soleus Stretch - 2 x daily - 7 x weekly - 10 reps - 5 seconds hold ASSESSMENT/PROGRESS TOWARD GOALS: Patient tolerated all exercises in clinic well. Ankle challenged by balance activities on bosu without increased discomfort. Functional Goals/Outcomes: HEP/Independent Management: Demonstrate independence with HEP and self- management following each treatment session. - MET, ongoing ADL's: Stand for at least 30 minutes without increased symptoms in 4 weeks. - PROGRESSING Driving: Drive with ease and safety in 4 weeks. - MET Ambulation: Ambulate with normal gait pattern in 6 weeks. - PROGRESSING Ambulation: Ambulate for at least 20 minutes with ease in 8 weeks. Work: Return to work without restrictions in 6-8 weeks. PLAN: Progress core and gluteal strength as able, ankle strength and proprioception documented in this encounter Plan of Treatment Upcoming Encounters Date Type Specialty Care Team Description 12/17/2021 Appointment Physical Therapy Simon Davis, PT [address] [place], [place] [address] (Wo rk) documented as of this encounter Visit Diagnoses Diagnosis Status post lumbar surgery - Primary Other postprocedural status Sprain of anterior talofibular ligament of right ankle, subsequent encounter documented in this encounter Care Teams Tunnel Heading Supervisor Relationship Specialty Start Date End Date Non Pn, Clinician, PCP - General 04/23/13 [place] [address] documented as of this encounter
--- OUTSIDE RECORDS SUMMARY | 2021-12-03 11:15 | XMS_ITS | Encounter Summary ---
:1955 Author Organization [facility] Address [address] [place] [address] Care Team Providers Name Role Phone Unavailable Primary Care Provider Unavailable Encounter Details Date Type Department Care Team Description 12/02/2004 Emergency room Lakeisha Gauthier MD EMERGENCY PHYSIC [facility] [address] [place], [place] [address] (Wo rk) Social History Tobacco Use Types Packs/Day Years Used Date Never Assessed Sex Assigned at Date Recorded Not on file documented as of this encounter Progress Notes Lakeisha Gauthier MD - 12/02/2004 11:59 PM CDT : 57 CHIEF COMPLAINT: Patient is a 49-year-old female with a chief complaint of low back pain. HISTORY: Patient is a 49-year-old female who is otherwise healthy. Patient was in her normal state of health up until Tuesday. Patient was apparently picking beans in her garden. The next day she developed severe increase in low back pain. She has been seen by her chiropractor multiple times. There has been no improvement. In fact, she feels it is worse. She cannot sit down or lie down without pain. She rates the pain at about 10 out of 10. Currently she is having 9 out of 10 pain. She has pain worse with motion. She denies abdominal pain. She denies numbness, tingling or weakness. She is ambulatory. She has no history of similar pain. PAST MEDICAL HISTORY: Histoplasmosis. MEDICATIONS: Medications include Aleve. ALLERGIES: Patient is allergic to DEMEROL and PERCODAN which make her vomit which are not true allergies. FAMILY HISTORY: Negative. SOCIAL HISTORY: Here with son who drove her here. REVIEW OF SYSTEMS: No numbness, no tingling. Pain does not radiate down either leg. She has had no constipation, no diarrhea, no incontinence. All other systems negative except as above. PHYSICAL EXAM: GENERAL: Physical exam demonstrates a moderately obese 49-year-old female. VITAL SIGNS: Blood pressure 122/68. Pulse 93, respirations 20. Oral temperature 97.7. HEAD, EYES, EARS, NOSE, THROAT: Head atraumatic, normocephalic. ABDOMINAL EXAM is soft, nontender. PELVIS is stable. BACK: Her pain localizes to the L4-5 area, paraspinal left and right. She is wearing a back brace. There is no stepoff or deformity. There is no evidence of contusion, abrasion, or laceration. Patient's LOWER EXTREMITIES demonstrate 5 out of 5 strength. She is ambulatory. Reflexes are intact and symmetric. EMERGENCY DEPARTMENT COURSE: Due to complaints of severe back pain, IV was placed. The patient was given Zofran 1 mg for nausea preemptively. For pain medication patient was given Toradol 30, Decadron 10, Robaxin 1000, and morphine 4 with a reduction of pain from 10 to 4 out of 10. I did return to discuss symptoms with the patient. We will discharge her with multiple medications and follow up with her primary doctor. PLAN: Heat to lower back, no lifting, no bending. Prednisone 12 day taper, Zofran p.r.n. nausea, vomiting. Robaxin 1500 q.i.d. Percocet dispensed #20. Follow with Dr. Correa. DISCHARGE DIAGNOSIS: Acute lumbar spasm. _ LAKEISHA GAUTHIER MD [place]: Document: [id number] [place], [place] Name: MR#: [id number] EMERGENCY ROOM ENCOUNTER Page 2 of 2 LCN: ALO DSC: 12/02/2004 [place], [place] Name: MR#: [id number] : Admit Date: Account #: 1955 12/02/2004 [id number] Doctor: LAKEISHA GAUTHIER MD EMERGENCY ROOM ENCOUNTER Page 1 of 2 documented in this encounter Plan of Treatment Not on filedocumented as of this encounter Visit Diagnoses Not on filedocumented in this encounter
--- OUTSIDE RECORDS SUMMARY | 2021-12-03 11:15 | XMS_ITS | Encounter Summary ---
:1955 Author Organization [facility] Address [address] [place] [id number] Care Team Providers Name Role Phone Vincenzo Grimaldo MD Primary Care Provider Encounter Details Date Type Department Care Team Description 03/21/2003 [facility] Only [facility] Vincenzo Grimaldo MD DIAGNOSIS NOT YET Clinic [place] [address] DEFINED (Primary Dx) [address] [place] [id number] [phone] Social History Tobacco Use Types Packs/Day Years Used Date Never Assessed Sex Assigned at Date Recorded Not on file documented as of this encounter Plan of Treatment Not on filedocumented as of this encounter Procedures Procedure Name Priority Date/Time Associated Diagnosis Comme [facility] COLONOSCOPY THRU Routine 03/21/2003 DIAGNOSIS NOT YET R esults for this STOMA, DIAGNOSTIC DEFINED procedure are in the results section . documented in this encounter Results COLONOSCOPY (03/21/2003) Impressions Jaqui Nelson - 03/21/2003 00:00 ??Operative Report-[facility] ??AZAR DE LA TORRE () ?? [Entered: interfaces, interfaces (FV Int erface) 22:36] ?? : ??57 1st ASS'T: 2nd ASS'T: PRE-OPERATIVE DIAGNOSIS: ??Rectal pain. POST-OPERATIVE DIAGNOSIS: ??1. ??Proctal juanita fugax. ??2. ??Otherwise normal colonoscopy. OPERATION: ??Total colonoscopy. INDICATIONS AND JUDGEMENT: ??Gloria Willingham is 47-year-old woman, whose father had bladder cancer, but had no colorectal cancer, and she is not aware of any colorectal c ancer in the family. ??She has pain in the rectum, which last for about one- half hour. ??It wakes her up at night. ??It occurs about three times a m onth and has carmen worse recently. She was referred for evaluation because of the pain. She is chronically constipated, averagin g about a bowel movement once a week, but generally has no trouble fro m it. OPERATIVE PROCEDURE: ??The patient was b rought to the Endoscopy Suite. ??I reviewed her past h istory with her. ??She states she had twisted bowel at age 9-10, which res olved without surgery, but she almost had to have surgery. ??Her only s urgery was wisdom tooth extraction, which was without difficulty . ??She does have some swollen ankles. 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 ALLERGIES: ??She has no allergies. PHYSICAL EXAMINATION: ??Reveals a luis ative, well-developed woman, who appears her stated age. ??Her neck is supple without adenopathy. ??There are no bruits. ??Her chest is clear. ??The heart is regular without murmurs or gallops. ??The abdome n is soft and flat. ??The liver and spleen are nonpalpable. ??The groin exam ination is negative. Digital rectal exam is unremarkable. ??When I fl ipped my finger against her levator on either side, I can feel some spasm, and she has a little discomfort. ??I think this reproduces th e location of her pain, and I suspect she has proctalgia fugax. PROCEDURE: ??The patient was counseled r egarding colonoscopy, including the risk of bleeding and medic ation effects, and after obtaining informed consent, she was placed in left lateral decubitus position. ??She was sedated with fentanyl 0.1 mg, Versed 1 mg. ??The Olympus video pediatric colonoscope was introduced and advanced into a rather long, loopy colon. ??I made my way to the sple jeanie flexure. ??Here, I ended up giving her another 0.05 mg of fentanyl, an extra 1 mg of Versed for a total of 2 and 0.1. ??The scope was adva nced through here with a bit of a push through. ??Finally, I could identif y the large sigmoid loop in the right upper quadrant, and with some abdominal pressure to hold this down, I was able to move around the hepatic flex ure and into the cecum. The colon was nicely prepared, and a good te chnical examination was accomplished. ??There was no indication of any significant pathology at all. The scope was removed after suctioning o ut the rectum. ??The patient tolerated the procedure well, experience d no complications. I will plan to check her again in approx imately ten years. ??I reassured her that I thought the diagnosis of her pain was proctalgia fugax, and with the infrequent episodes that she is havi ng, she probably does not need any specific therapy. ??She might be a c andidate for calcium channel darrell if the pain increases in frequen cy. ??I recommended to her that she soak in a hot bathtub and try and if she could to massage the area that hurts when she gets an attack, and maybe that will abort it for her. The patient was counseled not to drive o r make important decisions, but otherwise she may resume regular diet an d normal activities. [id number] AZAR DE LA TORRE MD MT: Document: [id number] [place], [place] Name: GLORIA GARCIA LCN: ??ENDO DSC: 03/21/2003 [place], [place] Name: MR#: : Procedure Date: GLORIA GARCIA -53 1955 03/21/2003 Doctor: ??AZAR DE LA TORRE MD OPERATIVE REPORT Page 1 of 2 Vincenzo Grimaldo MD PROCEDURES documented in this encounter Visit Diagnoses Diagnosis DIAGNOSIS NOT YET DEFINED - Primary documented in this encounter Care Teams Vibrating Screed Operator Relationship Specialty Start Date End Date Vincenzo Grimaldo MD PCP - General 07/07/07 02/24/14 documented as of this encounter
--- OUTSIDE RECORDS SUMMARY | 2021-12-03 11:15 | XMS_ITS | Encounter Summary ---
:1955 Author Organization [facility] Address [address] [place] [address] Care Team Providers Name Role Phone Unavailable Primary Care Provider Unavailable Encounter Details Date Type Department Care Team Description 05/07/2005 Operative Report Maninder Maria, (General Handling Supervisor) [facility] [address] [place] [address] (Wo rk) Social History Tobacco Use Types Packs/Day Years Used Date Never Smoker Alcohol Use Standard Drinks/Week Comments Not Asked 0 (1 standard drink = 0.6 oz pure alcoho l) 5-6 glasses of wine a week Sex Assigned at Date Recorded Not on file documented as of this encounter Progress Notes Maninder Maria - 05/07/2005 12:14 PM WAYS OPERATOR PRELIMINARY PREOPERATIVE DIAGNOSIS: Lateral meniscus tear, left knee. POSTOPERATIVE DIAGNOSIS: Lateral meniscus tear, left knee. PROCEDURE: Left knee arthroscopic partial lateral meniscectomy. SURGEON: Maninder Maria MD INSIDE SALES RECRUITER: [facility] ANESTHESIA: General. TOURNIQUET TIME: Fifteen minutes. ESTIMATED BLOOD LOSS: None. COMPLICATIONS: None. INDICATIONS FOR PROCEDURE: After successful administration of general anesthetic and Ancef antibiotic prophylaxis, patient was placed in supine position and tourniquet and leg barajas applied. The leg was prepped and draped in sterile fashion. After exsanguination of the limb, standard arthroscopic por tals were established and diagnostic arthroscopy performed. 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 The trochlea was normal as was the medial compartment and notch. Lateral compartment showed a 1.5 cm diameter area of grade II chondromalacia centrally on the condyle. There was extensive tearing of the lateral meniscus at the apical free margin posteriorly extending to the anterior horn where there was complexextensive tearing and displaced flaps. This was debrided with a shaver to a stable margin removing amajority of the anterior horn of the meniscus as it was frayed and degenerative. After general lavage and debridement, instruments were removed, Steri-Strips applied and Marcaine placed in knee joint followed by sterile compressive wrap. There were no apparent complications. MANINDER MARIA MD MT: [id number] Name: LUDA GARCIA MRN: -[id number] Account: [id number] : 1955 Procedure Date: 05/07/2005 Document: [id number] OPERATOR documented in this encounter Plan of Treatment Not on filedocumented as of this encounter Visit Diagnoses Not on filedocumented in this encounter
--- OUTSIDE RECORDS SUMMARY | 2021-12-03 11:15 | XMS_ITS | Clinical Summary ---
:1955 Author Organization [facility] Address [address] [place] [address] Care Team Providers Name Role Phone Non Pn, Clinician MD Primary Care Provider Unavailable Source Comments You are receiving this document as you are listed as the primary care provider,follow-up provider, or the patient has been referred to you for consultation.This is in compliance with the Medicare and Medicaid EHR Incentive Program,which states Providers who transition their patient to another setting of careor provider of care or refers their patient to another provider of care shouldprovide summarycare record for each transition of care or referral. TicketForEvent Allergies Active Allergy Reactions Severity Noted Date Comments Meperidine And Related Nausea And Vomiting 12/08/2004 Morphine And Related Nausea And Vomiting 12/08/2004 Medications Medication Sig Dispensed Refills Start Date End Date Status diphenhydrAMINE (BENADRYL) Take 50 mg by 0 Active 25 MG capsuleIndications: mouth. Mixed incontinence Encounters Date Type Specialty Care Team Description 11/23/2021 Therapy Physical Therapy Simon aDvis, PT His tory of ankle surgery (Primary Dx); Acute pain of l eft hip 11/19/2021 Therapy Physical Therapy Simon Davis, PT His tory of ankle surgery (Primary Dx); Acute pain of l eft hip 10/15/2021 Therapy Physical Therapy Simon Davis, PT His tory of ankle surgery (Primary Dx) from Last 3 Months Social History Tobacco Use Types Packs/Day Years Used Date Smoking Tobacco: Never Alcohol Use Standard Drinks/Week Comments No 0 (1 standard drink = 0.6 oz pure alcoho l) Sex Assigned at Date Recorded Not on file Last Filed Vital Signs Vital Sign Reading Time Taken Comments Blood Pressure 120/70 11/21/2017 1:23 PM CDT Pulse - - Temperature - - Respiratory Rate - - Oxygen Saturation - - Inhaled Oxygen Concentration - - Weight 109.1 kg (240 lb 9.6 oz) 12/03/2013 10:30 AM CDT Height 176.5 cm (5' 9.5) 12/03/2013 10:30 AM CDT Body Mass Index 35.02 12/03/2013 10:30 AM CDT Plan of Treatment Upcoming Encounters Date Type Specialty Care Team Description 12/17/2021 Appointment Physical Therapy Simon Davis, PT [address] [place], [place] [address] (Wo rk) Health Maintenance Due Date Last Done Comments Cervical Cancer Screening 1955 Due Colon Cancer Screening Plan 1955 Due Hep C Screening (Preventive 1955 Services) Medicare Welcome Visit 1955 COVID-19 Vaccine (#1) 05/07/1956 Cholesterol 2001 Mammogram 07/29/2012 07/30/2011 Pneumococcal 65+ Yrs (1 - 2021 11/05/2013 PCV) Influenza (#1) 2021 01/23/2021, 01/23/2021, 01/25/2020, Additional history exists DTaP/Tdap/Td (4 - Tdap) 10/03/2023 10/02/2013, 09/24/2013, 08/22/2009 Zoster/Shingles Completed 01/16/2018, 10/03/2017 HepA Aged Out No longer eligib le based on patient 's age to complete this topic HepB Aged Out No longer eligib le based on patient 's age to complete this topic Hib Aged Out No longer eligib le based on patient 's age to complete this topic IPV (Polio) Aged Out No longer eligib le based on patient 's age to complete this topic MCV4 Aged Out No longer eligib le based on patient 's age to complete this topic Insurance Payer Benefit Plan / Subscriber ID Effective Dates Phone Addre ss Type Group BCBS BCBS MEDICARE [id number] 2021-Present [phone] Medicare ADVANTAGE Care Teams Living Specialist Relationship Specialty Start Date End Date Non Pn, Clinician, PCP - General 04/23/13 [place] [address]
--- OUTSIDE RECORDS SUMMARY | 2021-12-03 11:15 | XMS_ITS | Encounter Summary ---
:1955 Author Organization [facility] Address [address] [place] [address] Care Team Providers Name Role Phone Non Pn, Clinician MD Primary Care Provider Unavailable Encounter Details Date Type Department Care Team Description 07/31/2021 Notes/Orders [place] [facility] Lyndon Davis ea, PT Therapy [address] [facility] [address] [place] [address] [place] [address] [phone] (Wo rk) Social History Tobacco Use Types Packs/Day Years Used Date Smoking Tobacco: Never Alcohol Use Standard Drinks/Week Comments No 0 (1 standard drink = 0.6 oz pure alcoho l) Sex Assigned at Date Recorded Not on file documented as of this encounter Progress Notes Simon Davis PT - 07/31/2021 11:59 PM CDT [facility] Discharge Summary Gloria Bonilla has not attended therapy since last documented visit. There are no further visits scheduled at this time and Gloria is currently considered discharged from therapy. Unable to assess current level of function and goals due to unplanned discharge. PT - Discharge Total Visits: 12 Reason for discharge: Therapy goals met, or therapist expects patient to meet goals through home program. Please see previous visit documentation of status at last treatment. Simon Davis, JIM documented in this encounter Plan of Treatment Upcoming Encounters Date Type Specialty Care Team Description 12/17/2021 Appointment Physical Therapy Simon Davis, PT [address] [place], [place] [address] (Wo rk) documented as of this encounter Visit Diagnoses Not on filedocumented in this encounter Care Teams Legal Aide Relationship Specialty Start Date End Date Non Pn, Clinician, PCP - General 04/23/13 [place] [address] documented as of this encounter
--- OUTSIDE RECORDS SUMMARY | 2021-12-03 11:15 | XMS_ITS | Encounter Summary ---
:1955 Author Organization [facility] Address [address] [place] [address]. [place] [address] Care Team Providers Name Role Phone Unavailable Primary Care Provider Unavailable Reason for Visit Reason Comments Pre-Op Exam Encounter Details Date Type Department Care Team Description 05/04/2005 Office Visit [facility] Inés Simon PRE OP EXAM OTHER SPECIFIED (Primary Dx); Clinic Reema Sterling NP TEAR LAT MENISC KNEE-CURRENT - left [address] [place] [address], [address] [address] [place], [place] [phone] (Wo rk) Social History Tobacco Use Types Packs/Day Years Used Date Never Smoker Alcohol Use Standard Drinks/Week Comments Not Asked 0 (1 standard drink = 0.6 oz pure alcoho l) 5-6 glasses of wine a week Sex Assigned at Date Recorded Not on file documented as of this encounter Last Filed Vital Signs Vital Sign Reading Time Taken Comments Blood Pressure 128/78 05/04/2005 9:30 AM CONFECTIONERY MAKER Pulse 76 05/04/2005 9:30 AM CONFECTIONERY MAKER Temperature 36.5 ??C (97.7 ??F) 05/04/2005 9:30 AM CONFECTIONERY MAKER Respiratory Rate - - Oxygen Saturation - - Inhaled Oxygen Concentration - - Weight 98.9 kg (218 lb) 05/04/2005 9:30 AM CONFECTIONERY MAKER Height 177.8 cm (5' 10) 05/04/2005 9:30 AM CONFECTIONERY MAKER Body Mass Index 31.28 05/04/2005 9:30 AM CONFECTIONERY MAKER documented in this encounter Progress Notes Hallie Lanza - 05/04/2005 9:28 AM CST PRE-OP EVALUATION: Gloria Bonilla presents for pre-operative evaluation as requested by Dr. Maria. She requires evaluation and anesthesia clearance prior to undergoing surgery/procedure for treatment of torn lateral meniscus left leg . Proposed procedure: repair torn lateral meniscus left leg Date of Surgery/ Procedure: 05/07/05 Time of Surgery/ Procedure: 10:45am Hospital/Surgical Facility: [facility] Fax number for surgical facility: [phone] [facility] FAX, DR MARIA FAX [phone] Primary Physician: Luiza Simon NP Type of Anesthesia Anticipated: General History of anesthesia complications: YES: Personal HX woke up crying History of abnormal bleeding: NONE History of blood transfusions: NO Patient has a Health Care Directive or Living Will: YES living will PREOP QUESTIONNAIRE 1- NO - Do you ever have any pain or discomfort in your chest? 2- NO - Have you ever had a severe pain across the front of your chest lasting for half an hour or more? 3- YES - Do you have swelling in your feet or ankles at times? Swelling in both feet and ankles all the time because pt is on her feet all day 4- NO - Are you troubled by shortness of breath when: walking on the level/ up a slight hill/ at night? 5- YES - Does your chest ever sound wheezy or whistling? WITH history of Hystoplasmosis - DOES NOT CURRENTLY HAVE DIFFICULTY BREATHING 6- NO - Do you currently have a cold, bronchitis or other respiratory infection? 7- NO - Have you had a cold, bronchitis or other respiratory infection within the last 2 weeks? 8- NO - Do you usually have a cough? 9- NO - Do you sometimes get pains in the calves of your legs when you walk? 10-NO - Do you or anyone in your family have previous history of blood clots? 11-NO - Do you or does anyone in your family have serious bleeding problem such as prolonged bleeding following surgeries or cuts? 12-NO - Have you ever had problems with anemia or been told to take iron pills? 13-NO - Have you had any abnormal blood loss such as black, tarry or bloody stools, or abnormal vaginal bleeding? 14-NO - Have you or any of your relatives ever had problems with anesthesia? 15-YES - Do you snore or stop breathing at night? snoreing 16-NO - Do you have any prosthetic heart valves or joints? 17-NO - Is there any chance that you may be ? Valeriy Lanza LPN HPI: See problem list for active medical problems. Problems all longstanding and stable, except as noted/documented. See ROS for pertinent symptoms related to these conditions. Patient Active Problem List Diagnoses Code ??? 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 UTERINE LEIOMYOMA NOS 218.9 Past Medical History Diagnosis Date ??? HISTOPLASMOSIS NEC treated at [facility] ??? UTERINE LEIOMYOMA NOS No past surgical history on file. Family History Problem Relation ??? Arthritis Mother severe RA ??? C.A.D. Father first [place] in his 20's or 30's (?); had a history of scarlet fever ??? Stroke Mother TIA ??? Hypertension Son 2 SONS WITH ENLARGED VENTRICLE - [facility] Current outpatient prescriptions Medication Sig ??? NITROFURANTOIN MACROCRYSTAL 100 MG OR CAPS 1 BID ??? GLUCOSAMINE CHONDRO COMPLEX OR 2 BID ??? MAXZIDE-25 25-37.5 MG OR TABS 1 po qd PRN for edema ??? METHOCARBAMOL 750 MG OR TABS 2 po tid ??? ENDOCET 5-325 MG OR TABS 1-2 po q 6hrs PRN ??? ZOFRAN 4 MG OR TABS 1 po q 8hrs ??? PREDNISONE 20 MG OR TABS tapering dose OTC products: herbals and vitamins - on glucosamine; has stopped other herbals - cannot remember names and NSAIDS - last dose of ibuprofen was yesterday Allergies Allergen Reactions ??? Demerol Nausea and Vomiting ??? Percodan (oxycodone-aspirin) Nausea and Vomiting Latex Allergy: NO History Substance Use Topics ??? Tobacco Use: Never ??? Alcohol Use: Not on file 5-6 glasses of wine a week History Drug Use Not on file REVIEW OF SYSTEMS: CONSTITUTIONAL:NEGATIVE for fever, chills, change in weight EYES: NEGATIVE for vision changes or irritation and wears bifocals RESP:NEGATIVE for significant cough or SOB and history of of histoplasmosis - everything is calcified - no SANDOVAL or SOB CV: NEGATIVE for chest pain, palpitations or peripheral edema GI: NEGATIVE for nausea, abdominal pain, heartburn, or change in bowel habits : normal menstrual cycles and recent hematuria - + for UTI - started treatment with macrodantin onSaturday NEURO: NEGATIVE for weakness, dizziness or paresthesias HEME/ALLERGY/IMMUNE: NEGATIVE for bleeding problems; reports heavy periods EXAM: BP 146/72 Pulse 76 Temp 97.7 Ht 5' 10 (1.78m) Wt 218 lbs (98.9kg) LMP 04/20/2005 GENERAL APPEARANCE: healthy, alert and no distress RESP: lungs clear to auscultation - no rales, rhonchi or wheezes CV: regular rates and rhythm, normal S1 S2, no S3 or S4 and no murmur, click or rub ABDOMEN: soft, nontender, without hepatosplenomegaly or masses and bowel sounds normal MS: extremities normal- no gross deformities noted and LEFT KNEE IS SWOLLEN AND Gloria HAS DIFFICULTYWITH WEIGHT BEARING SKIN: no suspicious lesions or rashes and warm and dry PSYCH: mentation appears normal. and affect normal/bright DIAGNOSTICS: EKG: Not indicated Labs: HGB and potassium IMPRESSION: Reason for surgery/procedure: LEFT LATERAL MENISCUS TEAR / LEFT KNEE REPAIR Diagnosis/reason for consult: MEDICAL PRE-OPERATIVE EVALUATION For above listed surgery and anesthesia: Patient is at LOW risk for surgery/procedure and perioperative/procedure complications. RECOMMENDATIONS: Approval given to proceed with proposed procedure, without further diagnostic evaluation. Discontinue NSAIDS 5 days prior to procedure to reduce bleeding risk. Signed Electronically by: LUIZA SIMON NP Copy of this evaluation report is provided to requesting physician. ECTIONERY MAKER documented in this encounter Nursing Notes 05/04/2005 9:30 AM CST >> HALLIE LANZA 05/04/2005 9:36 am Gloria Bonilla presents for pre op. Initial BP 146/72 Pulse 76 Temp 97.7 Ht 5' 10 (1.78m) Wt 218 lbs (98.9kg) LMP 04/20/2005 Body mass index is 31.28 kg/(m^2).. BP completed using cuff size: large Valeriy Lanza LPN documented in this encounter Plan of Treatment Not on filedocumented as of this encounter Procedures Procedure Name Priority Date/Time Associated Comments Diagnosis HCL HEMOGLOBIN Routine 05/04/2005 10:42 AM Preop Exam Other Re sults for this NONLAB CONFECTIONERY MAKER Specified procedure are in TEAR LAT MENISC the results KNEE-CURRENT - left section. HCL POTASSIUM Routine 05/04/2005 10:42 AM Preop Exam Other Res ults for this CONFECTIONERY MAKER Specified procedure are in TEAR LAT MENISC the results KNEE-CURRENT - left section. documented in this encounter Results POTASSIUM (05/04/2005 10:42 AM CONFECTIONERY MAKER) P athologist Signature Potassium 4.1 3.4 - 5.3 [facility] mmol/L [facility] Specimen Anatomical Collection Method Collection Time Receive d Time (Source) Location / / Volume Laterality 05/04/2005 10:42 05/04/2005 AM CONFECTIONERY MAKER 10:43 AM CONFECTIONERY MAKER Inés [facility] Performing Organization Address City/[facility] Phon e Number [address] [phone] [facility] HGB (05/04/2005 10:42 AM CONFECTIONERY MAKER) athologist Signature Hemoglobin 12.5 11.7 - 15.7 [facility] g/dL [facility] Specimen Anatomical Collection Method Collection Time Receive d Time (Source) Location / / Volume Laterality 05/04/2005 10:42 05/04/2005 AM CONFECTIONERY MAKER 10:43 AM CONFECTIONERY MAKER [place] [place] [facility] Performing Organization Address City/[facility] Phon e Number [address] [address] [phone] [facility] documented in this encounter Visit Diagnoses Diagnosis Other specified pre-operative examinatio n - Primary TEAR LAT MENISC KNEE-CURRENT - left Tear of lateral cartilage or meniscus of knee, current documented in this encounter
--- OUTSIDE RECORDS SUMMARY | 2021-12-03 11:15 | XMS_ITS | Encounter Summary ---
:1955 Author Organization [place] Address [address] [place] [address] Care Team Providers Name Role Phone Unavailable Primary Care Provider Unavailable Encounter Details Date Type Department Care Team Description 05/28/2005 Therapy Visit [place] for PRINCE Sabillon ENISC KNEE-CURRENT; Athletic Medicine - Mikie FINLEY URGICAL STATES [facility] Physical Therapy [facility] Elisabeth Haddad [facility]. [address] [place] [phone] Social History Tobacco Use Types Packs/Day Years Used Date Never Smoker Alcohol Use Standard Drinks/Week Comments Not Asked 0 (1 standard drink = 0.6 oz pure alcoho l) 5-6 glasses of wine a week Sex Assigned at Date Recorded Not on file documented as of this encounter Progress Notes Mikie Sabillon - 05/28/2005 12:05 PM CST Please refer to the daily flowsheet for treatment today. HER FLESHER documented in this encounter Plan of Treatment Not on filedocumented as of this encounter Procedures Procedure Name Priority Date/Time Associated Diagnosis Comme nts ZZC THERAPEUTIC Routine 05/28/2005 12:41 PM IAMTEAR LAT MENISC ACTIVITIES LEATHER FLESHER KNEE-CURRENT IAMPOSTSURGICAL STATES NEC Z THERAPEUTIC Routine 05/28/2005 12:41 PM IAMTEAR LAT MENISC EXERCISES LEATHER FLESHER KNEE-CURRENT IAMPOSTSURGICAL STATES NEC ZC HOT OR COLD PACKS Routine 05/28/2005 12:41 PM IAMTEAR LAT MENISC THERAPY LEATHER FLESHER KNEE-CURRENT [place]AM[place]URGICAL [place] NEC documented in this encounter Visit Diagnoses Diagnosis IAMTEAR LAT MENISC KNEE-CURRENT Tear of lateral cartilage or meniscus of knee, current IAMPOSTSURGICAL STATES NEC Other postprocedural status documented in this encounter
--- OUTSIDE RECORDS SUMMARY | 2021-12-03 11:15 | XMS_ITS | Encounter Summary ---
:1955 Author Organization [facility] Address [address] [place] [address] Care Team Providers Name Role Phone Non Pn, Clinician MD Primary Care Provider Unavailable Reason for Visit Reason Comments HEADACHE VISION, BLURRED Encounter Details Date Type Department Care Team Description 07/18/2021 Nurse Triage Careline Unknown, HEADACHE; VISION, [address] Physician BLURRED [place], [place] [address] [phone] [place] [address] Social History Tobacco Use Types Packs/Day Years Used Date Smoking Tobacco: Never Alcohol Use Standard Drinks/Week Comments No 0 (1 standard drink = 0.6 oz pure alcoho l) Sex Assigned at Date Recorded Not on file documented as of this encounter Nursing Notes Maria Fine RN - 07/18/2021 7:24 AM CDT Verified patient identity: Yes Situation/Background (brief explanation of current symptoms/situation): Patient has had an off and on headache for the past week that has gotten progressively worse. She took 9-tylenol yesterday without relief. The headache is all on her right side and her right eye is painful if she pushes on it. Patient states she is nauseated and feels like she could vomit if she bends her head forward. Patient has blurry vision and states that she rarely gets headaches and this is the worst one she has ever had. Reviewed with patient pertinent medical history (as it related to the call): Yes Reviewed with patient pertinent medications (as they relate to call): Yes Reviewed with patient pertinent allergies (as they relate to call): Yes Allergies Allergen Reactions ??? Meperidine And Related Nausea And Vomiting ??? Morphine And Related Nausea And Vomiting Reason for Disposition ??? Severe pain in one eye Protocols used: [id number] Another adult will drive the patient to the ER now. Advised patient/caller to call back CareLine if there are further questions or concerns. The CareLine is available 04/10. Maria Martínez RN 7:28 AM 07/18/2021 Nilam Long - 07/18/2021 7:21 AM CDT Verified patient identity using three identifiers: Yes Caller's relationship to patient: Self Do you get your primary care at a HP or PN clinic: No/Other Other (Clinic Name)[place] [facility] Member: No Symptoms Describe the reason for call/symptoms (include location and duration if applicable): Pt has had constant headaches on right side of head for over a week, blurred vision in right eye. Plan:Caller transferred directly to CareLine nurse. documented in this encounter Plan of Treatment Upcoming Encounters Date Type Specialty Care Team Description 12/17/2021 Appointment Physical Therapy Simon Davis, PT [address] [place], [place] [phone] (Wo rk) documented as of this encounter Visit Diagnoses Not on filedocumented in this encounter Care Teams Dry Cleaning Checker Relationship Specialty Start Date End Date Non Pn, Clinician, PCP - General 04/23/13 [place] [address] documented as of this encounter
--- OUTSIDE RECORDS SUMMARY | 2021-12-03 11:15 | XMS_ITS | Encounter Summary ---
:1955 Author Organization [place] Address [address] [place] [address] Care Team Providers Name Role Phone Unavailable Primary Care Provider Unavailable Encounter Details Date Type Department Care Team Description 08/14/2004 Results Only [facility] Abel Card MD Hospital Results [facility] OBGYN CONSULTS [address] [place], [place] [phone] (Wo rk) Social History Tobacco Use Types Packs/Day Years Used Date Never Assessed Sex Assigned at Date Recorded Not on file documented as of this encounter Plan of Treatment Not on filedocumented as of this encounter Procedures Procedure Name Priority Date/Time Associated Diagnosis Comme nts C MAMMOGRAM, Routine 08/14/2004 9:27 AM Results f or this SCREENING CDT procedure are i n the results section. documented in this encounter Results MAMMOGRAM, SCREENING (08/14/2004 9:27 AM CDT) Specimen (Source) Anatomical Collection Method Collection Time Re ceived Time Location / / Volume Laterality 08/14/2004 9:27 AM CDT Impressions RADIOLOGY RESULTS - 08/24/2004 9:55 AM C DT SCREENING MAMMOGRAM, BILATERAL BREAST SYMPTOMS: None PREVIOUS MAMMOGRAPHY: Comparison with [facility] dated 12/02/00 and 08/30/03. ??There is no signi ficant change. BREAST PARENCHYMA: heterogeneously dens e IMPRESSION: CATEGORY 1 Negative TECHNOLOGIST INITIALS: BERYL Abel Card MD SPECIAL IMAGING STUDIES Performing Organization Address City/State/ZIP Code Phon e Number RADIOLOGY RESULTS documented in this encounter Visit Diagnoses Not on filedocumented in this encounter
--- OUTSIDE RECORDS SUMMARY | 2021-12-03 11:15 | XMS_ITS | Encounter Summary ---
:1955 Author Organization [place] Address [address] [place] [address] Care Team Providers Name Role Phone Unavailable Primary Care Provider Unavailable Encounter Details Date Type Department Care Team Description 05/24/2005 Therapy Visit [place] for Yanira Moreno IAMTEAR L AT [facility] KNEE-CURRENT; Athletic Medicine - PT [place]URGICAL [place] NEC [place] [facility]IA[facility] Therapy [address] [place] [address]. [address] [place] [phone] Social History Tobacco Use Types Packs/Day Years Used Date Never Smoker Alcohol Use Standard Drinks/Week Comments Not Asked 0 (1 standard drink = 0.6 oz pure alcoho l) 5-6 glasses of wine a week Sex Assigned at Date Recorded Not on file documented as of this encounter Progress Notes Yanira Moreno - 05/24/2005 12:37 PM CST Initial evaluation was completed. Please refer to the daily flowsheet for treatment today. NE BOSS documented in this encounter Plan of Treatment Not on filedocumented as of this encounter Procedures Procedure Name Priority Date/Time Associated Diagnosis Comme [facility] THERAPEUTIC Routine 05/24/2005 12:40 PM IAMTEAR LAT MENISC EXERCISES ENGINE BOSS KNEE-CURRENT [place]UR[place]ICAL [place] NEC documented in this encounter Visit Diagnoses Diagnosis IAMTEAR LAT MENISC KNEE-CURRENT Tear of lateral cartilage or meniscus of knee, current IAMPOSTSURGICAL STATES NEC Other postprocedural status documented in this encounter
--- OUTSIDE RECORDS SUMMARY | 2021-12-03 11:15 | XMS_ITS | Encounter Summary ---
:1955 Author Organization [place] Address [address] [facility] [place] [address] Care Team Providers Name Role Phone Unavailable Primary Care Provider Unavailable Reason for Visit Reason Onset Date Comments Forms 12/24/2004 Disability statement Encounter Details Date Type Department Care Team Description 12/24/2004 [facility] Abel Correa MD Forms ([facility] [place] NO INFO FOUND statement) [address] [facility], [place] [address] [place] [address] [place] [address] [phone] Social History Tobacco Use Types Packs/Day Years Used Date Never Smoker Alcohol Use Standard Drinks/Week Comments Not Asked 0 (1 standard drink = 0.6 oz pure alcoho l) 5-6 glasses of wine a week Sex Assigned at Date Recorded Not on file documented as of this encounter Miscellaneous Notes Telephone Encounter - Claire Vogt - 12/24/2004 2:48 PM CDT Form was completed by and Pt. requested it be mailed to her home. Claire Vogt LPN Telephone Encounter - 12/24/2004 2:38 PM CDT Staff Message copied by CLAIRE VOGT on 12/24/2004 at 2:38 PM ------ Message from: RAUL GREENE Created: 12/23/2004 at 11:22 AM Regarding: white/leaving a message Contact First & Last Name if other than the patient involved: same Main reason for the request: sent dr correa a disability form two weeks ago and her insurance is hounding her to get it turned in, wondering what the statis is on it, has it been mailed? she needs it Expecting call back:YES May leave message: YES Please contact Patient at home Best time to call back: [facility] [phone] (home), (work) Alternate phone number: na Raul Greene documented in this encounter Plan of Treatment Not on filedocumented as of this encounter Visit Diagnoses Not on filedocumented in this encounter
--- OUTSIDE RECORDS SUMMARY | 2021-12-03 11:15 | XMS_ITS | Encounter Summary ---
:1955 Author Organization [facility] Address [address] [place] [address] Care Team Providers Name Role Phone Non Pn, Clinician MD Primary Care Provider Unavailable Reason for Visit Reason Comments Ankle Problem Therapies (Routine) - New Request Specialty Diagnoses / Procedures Referred By Contact Refer red To Contact Physical Therapy Diagnoses Post Op R Ankle Order was very hard to read and couldnt see referring provder's name clearly. [facility] Therapy [address] [place] [address] [facility] [address] [place] [address] [place], [place] [address] Referral ID Status Reason Start Date Expiration Date Visits V isits Requested Authorized [id number] New Request 10/13/2021 01/12/2023 1 1 Encounter Details Date Type Department Care Team Description 10/15/2021 Therapy [place] [facility] Lyndon Davis ea, PT History of ankle Therapy [address] (Primary Dx) [address] [place] [address] [place] [address] [phone] Social History Tobacco Use Types Packs/Day Years Used Date Smoking Tobacco: Never Alcohol Use Standard Drinks/Week Comments No 0 (1 standard drink = 0.6 oz pure alcoho l) Sex Assigned at Date Recorded Not on file documented as of this encounter Progress Notes Simon Davis, PT - 10/15/2021 2:30 PM CDT [address] Services Physical Therapy Post-operative Ankle Evaluation/Plan of Care Initial Certification Period: 10/15/2021 to 12/14/21 Referring Provider: James Ramirez Surgical Procedure: Right ankle arthroscopy with extensive anterior soft tissue and bone debridement, right ankle loose body excision, and right ankle modified Brostrom procedure augmented with an InternalBrace Surgical Date: 09/21/21 Visit Diagnosis: 1. History of ankle surgery Precautions: WBAT in boot, Per protocol Orders: Evaluate & treat, Per protocol Onset/Referral Date: DOS 09/21/21 SUBJECTIVE Reason for Visit: Patient presents to physical therapy 3.5 weeks s/p R ankle surgery. She is having no pain and is now walking around with CAM boot. 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 Had lumbar surgery in April and continues to have some numbness in the R anterior thigh along with incontinence. Patient Therapy Goals: Resume previous level of activity symptom free. Past Medical History: Past medical history, medication, and allergies were reviewed in the electronic medical record. 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 Patient History: Moderate Complexity: 1-2 personal factors and/or comorbidities that impact plan of care: hx L TKA, L2/3 fusion 04/27/21, incontinence OBJECTIVE Observation: incisions healing well, no increased redness or warmth Gait Exam: full WBAT in CAM boot Edema: None ROM: PROM Right Ankle: Dorsiflexion: 0 degrees Plantarflexion: 45 degrees Inversion: 25 degrees Eversion: 20 degrees Strength: Not tested PT - Musculoskeletal - Ankle Foot & Ankle Ability Measure - ADL (0-100%, 100% being best): 33 Clinical Examination: Low complexity: Addressed 1-2 elements from body structures and functions (see above), and/or functional limitations as noted below. Today's Intervention/Charges: Physical Therapy Evaluation was completed and the patient was educated on the condition, planned therapy intervention and expectations from treatment. Therapeutic exercise x 20 minutes: Patient was instructed in and performed: - AROM ankle DF/PF x 15 reps - AROM ankle inversion/eversion x 15 reps - bridge x 10 reps - SLR x 10 reps - side-lying hip abduction x 10 reps - clamshells x 10 reps Timed Code Treatment Minutes: 20 Total Treatment Minutes: 30 Home Exercise Program: Access Code: [email or web address] Supine Ankle Inversion Eversion AROM - 2 x daily - 7 x weekly - 30 reps Supine Single Leg Ankle Pumps - 2 x daily - 7 x weekly - 30 reps Seated Toe Curl - 2 x daily - 7 x weekly - 30 reps Supine Bridge - 2 x daily - 7 x weekly - 2 sets - 10 reps Supine Active Straight Leg Raise - 2 x daily - 7 x weekly - 2 sets - 10 reps Sidelying Hip Abduction - 2 x daily - 7 x weekly - 2 sets - 10 reps Clamshell (Mirrored) - 2 x daily - 7 x weekly - 2 sets - 10 reps ASSESSMENT Therapist Impression/Summary: Right ankle ROM limitation, muscle weakness, and difficulty walking consistent with post-op status. Patient will benefit from skilled physical therapy services to address limitations and return to prior level of functional mobility. PT Clinical Presentation: Low Complexity: Stable and Uncomplicated Clinical Decision Making: Low Complexity Recommendations/Equipment: No additional recommendations at this time Significant Impairments: Muscle tightness/decreased flexibility, Muscle weakness, ROM Limitation, Proprioception deficits, Surgery aftercare Functional Limitations: difficulty with household tasks, difficulty meeting work demands, difficultywith driving, difficulty with gait, and difficulty with stairs Goals/Functional Outcomes: HEP/Independent Management: Demonstrate independence with HEP and self- management following each treatment session ADL's: Squat with proper body mechanics with minimal/no symptoms in 8-12 weeks. Driving: Drive with ease and safety in 6 weeks. Ambulation: Ambulate with normal gait pattern with minimal to no symptoms/limp in 4-6 weeks. Ascend/descend stairs independently with reciprocal pattern with ease in 8-12 weeks. 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 Barriers to Goal Achievement or Learning: none Prognosis: Good PLAN Planned Intervention/Education: ADL/Self Management, Gait training, Manual Therapy, Neuromuscular Re-education, Therapeutic Activities, Therapeutic Exercise Frequency: 1 x week Duration: 60 days Discharge Plan: Patient will be discharged from therapy when goals are achieved or patient plateaus in progress. Informed Consent: Patient and/or family in agreement with the care plan. Plan for Next Treatment: progress per protocol The plan of care has been sent to the out of network referring clinician for signature to certify medical necessity for the plan above. documented in this encounter Plan of Treatment Upcoming Encounters Date Type Specialty Care Team Description 12/17/2021 Appointment Physical Therapy Simon Davis, PT [address] [place], [place] [phone] (Wo rk) documented as of this encounter Visit Diagnoses Diagnosis History of ankle surgery - Primary documented in this encounter Care Teams Tank Wagon Driver Relationship Specialty Start Date End Date Non Pn, Clinician, PCP - General 04/23/13 [place] [address] documented as of this encounter
--- OUTSIDE RECORDS SUMMARY | 2021-12-03 11:15 | XMS_ITS | Encounter Summary ---
:1955 Author Organization [place] Address [facility] [place] [address] Care Team Providers Name Role Phone Unavailable Primary Care Provider Unavailable Reason for Visit Reason Onset Date Comments Refill Request 12/11/2004 Encounter Details Date Type Department Care Team Description 12/11/2004 Refill [facility] Abel Correa MD Refill Request [place] NO INFO FOUND [place] [address] [facility], [address] [place] [address] [place] [address] [phone] Social History Tobacco Use Types Packs/Day Years Used Date Never Smoker Alcohol Use Standard Drinks/Week Comments Not Asked 0 (1 standard drink = 0.6 oz pure alcoho l) 5-6 glasses of wine a week Sex Assigned at Date Recorded Not on file documented as of this encounter Miscellaneous Notes Telephone Encounter - Maria Vogt - 12/11/2004 1:33 PM CDT Pt. called and stated that just after talking with she tweeked her back again, and requested refill of her muscle relaxer. Uses [facility] in [place]. Maria Vogt LPN documented in this encounter Plan of Treatment Not on filedocumented as of this encounter Visit Diagnoses Diagnosis Thoracic or lumbosacral neuritis or radi culitis, unspecified - Primary documented in this encounter
--- OUTSIDE RECORDS SUMMARY | 2021-12-03 11:15 | XMS_ITS | Encounter Summary ---
:1955 Author Organization [facility] Address [address] [place] [address] Care Team Providers Name Role Phone Non Pn, Clinician MD Primary Care Provider Unavailable Reason for Visit Reason Comments Ankle Problem Therapies (Routine) - New Request Specialty Diagnoses / Procedures Referred By Contact Refer red To Contact Physical Therapy Diagnoses Post Op R Ankle Order was very hard to read and couldnt see referring provder's name clearly. [facility] ALL [facility] Therapy [address] [address] [facility] [address] [place] [address] [place], [place] [address] Referral ID Status Reason Start Date Expiration Date Visits V isits Requested Authorized [id number] New Request 10/13/2021 01/12/2023 1 1 Encounter Details Date Type Department Care Team Description 11/19/2021 Therapy [place] [facility] Lyndon Davis ea, PT History of ankle surgery (Primary Dx); Therapy [address] Acute pain of left hip [address] [place] [address] [place] [address] [phone] Social History Tobacco Use Types Packs/Day Years Used Date Smoking Tobacco: Never Alcohol Use Standard Drinks/Week Comments No 0 (1 standard drink = 0.6 oz pure alcoho l) Sex Assigned at Date Recorded Not on file documented as of this encounter Progress Notes Simon Davis, PT - 11/19/2021 11:00 AM CDT [facility] Progress Note Visit Number: 2 Initial Certification Period: 10/15/2021 to 12/14/21 Referring Provider: James Ramirez Surgical Procedure: Right ankle arthroscopy with extensive anterior soft tissue and bone debridement, right ankle loose body excision, and right ankle modified Brostrom procedure augmented with an InternalBrace Surgical Date: 09/21/21 Visit Diagnosis: 1. History of ankle surgery 2. Acute pain of left hip Precautions: WBAT SUBJECTIVE: Gloria is now 8 weeks s/p ankle surgery. She transitioned out of the CAM boot and into a shoe after her most recent post-op visit on 11/12/21. The ankle itself is not causing her any pain. It does feel weak and she's very careful when she walks. Does note that 3 weeks ago she did something to her left glute. She tripped and felt a pop in the gluteal area when she caught herself, and it's been painful ever since. She does come with updated PT orders to evaluate and treat this. Pain is localized to theposterior buttock. Did not have any bruising after injury. Pain is worse with ascending stairs, pulling her shoe back against the other foot to take it off, standing to dress LE's, and fast walking. Denies further radiating pain or numbness/tingling. She has a girls' weekend in a couple weeks that will involve a lot of walking. OBJECTIVE Current Objective Findings: Right Ankle ROM: WNL Lumbar AROM: all motions WNL and pain-free Double leg squat: WNL, feel it at end-range returning to stand Single leg balance: feel it but able Left Hip PROM: all motions WNL and pain-free Left LE Strength: Knee flexion: 5/5 Knee extension: 5/5 Hip flexion: 5/5 Hip extension: 4/5, feel it Flexibility: Hamstrings: WNL Quad: restricted Palpation: tenderness and tightness glute max, tenderness quadratus femoris; non-tender over gluteusmedius or proximal hamstring attachment. Treatment/Education Today: Therapeutic exercise x 38 minutes: - objective measures - bridge x 10 reps - supine piriformis stretch - seated hamstring stretch - squats with UE support x 10 reps - standing heel raises x 10 reps, toes out x 10 reps - SLS with 1 UE support 30 seconds x 2 reps Timed Code Treatment Minutes: 38 Total Treatment Minutes: 38 Current Home Exercise Program List: Access Code: [email or web address] Heel Raises with Counter Support - 2 [...] 30 seconds hold ASSESSMENT/PROGRESS TOWARD GOALS: Patient demonstrates good ankle ROM; weakness evident with SLS and heel raises for ankle strengthening. Left hip pain consistent with gluteal strain. All exercises in clinic were well tolerated. 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 - PROGRESSING PLAN: Manual therapy as needed to address gluteal soft tissue restriction, progress gluteal strength as tolerated, progress ankle strength and proprioception documented in this encounter Plan of Treatment Upcoming Encounters Date Type Specialty Care Team Description 12/17/2021 Appointment Physical Therapy Simon Davis, PT [address] [place], [place] [phone] (Wo rk) documented as of this encounter Visit Diagnoses Diagnosis History of ankle surgery - Primary Acute pain of left hip documented in this encounter Care Teams Automatic Nailing Machine Operator Relationship Specialty Start Date End Date Non Pn, Clinician, PCP - General 04/23/13 [place] [address] documented as of this encounter
--- OUTSIDE RECORDS SUMMARY | 2021-12-03 11:16 | XMS_ITS | Encounter Summary ---
:1955 Author Organization [employer] Address [address] [place] [address] Care Team Providers Name Role Phone Non Pn, Clinician MD Primary Care Provider Unavailable Reason for Visit Reason Comments Spine Lumbar Encounter Details Date Type Department Care Team Description 06/02/2021 Therapy [place] [facility] Lyndon Davis ea, PT Status post lumbar Therapy [address] surgery (Primary Dx) [address] [place] [place] [address] [place] [address] [phone] Social History Tobacco Use Types Packs/Day Years Used Date Smoking Tobacco: Never Alcohol Use Standard Drinks/Week Comments No 0 (1 standard drink = 0.6 oz pure alcoho l) Sex Assigned at Date Recorded Not on file documented as of this encounter Progress Notes Simon Davis, PT - 06/02/2021 11:30 AM CDT [facility] Physical Therapy Progress Note Visit Number: 3 Initial Certification Period: 05/20/2021 to 08/18/21 Referring Provider: Jose Khan Surgery: Right L2-3 minimally invasive TLIF Surgical date: 04/27/21 Visit Diagnosis: 1. Status post lumbar surgery Precautions: L2/3 fusion, lifting up to 25 pounds, LSO SUBJECTIVE: Gloria reports that she stepped in a pothole on a walk and twisted her R ankle, so she's in a boot for 3 weeks. Walking in the boot has caused her back to feel a little off and she hasn't been able to do the standing exercises. All other exercises are still going well. Sleep has gotten much better; no longer having spasms in the buttock. R LE continues to be numb. Mentions ongoing incontinence since surgery and should be meeting with urology at some point. OBJECTIVE Current Objective Findings: None taken Treatment/Education Today: Therapeutic exercise x 24 minutes: - verbally reviewed HEP and updated for home - clamshells x 10 reps x 2 sets - reverse clamshells x 10 reps x 2 sets - side-lying hip abduction x 10 reps x 2 sets - supine 90-90 pelvic tilt with legs on theraball x 10 reps x 2 sets - supine bridge with legs on theraball x 10 reps x 2 sets - supine lumbar rotation using theraball x 10 reps x 2 sets Manual therapy x 12 minutes: - MFR R quadratus lumborum and piriformis Timed Code Treatment Minutes: 36 Total Treatment Minutes: 36 Current Home Exercise Program List: Access Code: [email or web address] Sidelying Hip Abduction - 2 x daily - 7 x weekly - 10 reps Clamshell - 2 x daily - 7 x weekly - 10 reps Sidelying Reverse Clamshell - 2 x daily - 7 x weekly - 10 reps Bent Knee Fallouts - 2 x daily - 7 x weekly - 10 reps Supine March with Posterior Pelvic Tilt - 2 x daily - 7 x weekly - 20 reps Hooklying Active Hamstring Stretch - 2 x daily - 7 x weekly - 10 reps Supine Piriformis Stretch with Leg Straight - 2 x daily - 7 x weekly - 2 reps - 30 seconds hold ASSESSMENT/PROGRESS TOWARD GOALS: Lumbar ROM limitation, muscle weakness, decreased muscle flexibility, nerve tension, and difficulty walking consistent with post-op status. Patient tolerated all exercises well and without increased discomfort; fatigues easily with side-lying exercises. Discussed that pelvic floor PT may be appropriate in the future after she meets with urology. Exercises limited to plinth today due to recent R anklesprain. Functional Goals/Outcomes: HEP/Independent Management: Demonstrate independence with HEP and self- management following each treatment session. - MET, ongoing ADL's: Stand for at least 30 minutes without increased symptoms in 4 weeks. Driving: Drive with ease and safety in 4 weeks. Ambulation: Ambulate with normal gait pattern in 6 weeks. Ambulation: Ambulate for at least 20 minutes with ease in 8 weeks. Work: Return to work without restrictions in 6-8 weeks. PLAN: Progress core and gluteal strength as able documented in this encounter Plan of Treatment Upcoming Encounters Date Type Specialty Care Team Description 12/17/2021 Appointment Physical Therapy Simon Davis, PT [address] [place], [place] [address] (Wo rk) documented as of this encounter Visit Diagnoses Diagnosis Status post lumbar surgery - Primary Other postprocedural status documented in this encounter Care Teams Dining Room Manager Relationship Specialty Start Date End Date Non Pn, Clinician, PCP - General 04/23/13 [place] [address] documented as of this encounter
--- OUTSIDE RECORDS SUMMARY | 2021-12-03 11:16 | XMS_ITS | Encounter Summary ---
:1955 Author Organization [employer] Address [address] [place] [address] Care Team Providers Name Role Phone Non Pn, Clinician MD Primary Care Provider Unavailable Reason for Visit Reason Comments Spine Lumbar Encounter Details Date Type Department Care Team Description 06/15/2021 Therapy [place] [facility] Lyndon Davis ea, PT Status post lumbar Therapy [address] surgery (Primary Dx) [address] [place] [address] [place] [address] [phone] Social History Tobacco Use Types Packs/Day Years Used Date Smoking Tobacco: Never Alcohol Use Standard Drinks/Week Comments No 0 (1 standard drink = 0.6 oz pure alcoho l) Sex Assigned at Date Recorded Not on file documented as of this encounter Progress Notes Simon Davis, PT - 06/15/2021 12:30 PM CDT [facility] Physical Therapy Progress Note Visit Number: 6 Initial Certification Period: 05/20/2021 to 08/18/21 Referring Provider: Jose Khan Surgery: Right L2-3 minimally invasive TLIF Surgical date: 04/27/21 Visit Diagnosis: 1. Status post lumbar surgery Precautions: L2/3 fusion, lifting up to 25 pounds, LSO SUBJECTIVE: Gloria reports that her back is doing okay. She's bene getting soreness in the upper gluteals like she got beat up. Thinks her feeling is just starting to come back. Exercises do not cause extra discomfort during or after. and buttock are feeling pretty good. Has been compliant with HEP. OBJECTIVE Current Objective Findings: Gait: trendelenberg R Treatment/Education Today: Therapeutic exercise x 24 minutes: - verbally reviewed HEP and updated for home - prone hip extension x 10 reps x 2 sets bilaterally - modified prone plank 30 seconds x 2 sets - butterfly bridge x 10 reps, bridge with isometric adduction x 10 reps - SLR with lower abdominal recruitment x 10 reps x 2 sets bilaterally - squat with buttock tap to elevated plinth x 10 reps x 2 sets Manual therapy x 12 minutes: - MFR R quadratus lumborum and piriformis - scar mobilization Timed Code Treatment Minutes: 36 Total Treatment Minutes: 36 Current Home Exercise Program List: Access Code: [email or web address] Sidelying Hip Abduction - 2 x daily - 7 x weekly - 10 reps Clamshell - 2 x daily - 7 x weekly - 10 reps Butterfly Bridge - 2 x daily - 7 x weekly - 10 reps Small Range Straight Leg Raise - 2 x daily - 7 x weekly - 10 reps Hooklying Sequential Leg March and Lower - 2 x daily - 7 x weekly - 10 reps Hooklying Active Hamstring Stretch - 2 x daily - 7 x weekly - 10 reps Supine Piriformis Stretch with Leg Straight - 2 x daily - 7 x weekly - 2 reps - 30 seconds hold Squat with Chair Touch - 2 x daily - 7 x weekly - 10 reps ASSESSMENT/PROGRESS TOWARD GOALS: Lumbar ROM limitation, muscle weakness, decreased muscle flexibility, nerve tension, and difficulty walking consistent with post-op status. Patient did well with progression of exercises in clinic. Continues to have significant gluteal weakness in weightbearing causing trendelenberg limp. Functional Goals/Outcomes: HEP/Independent Management: Demonstrate independence with [...] 12/17/2021 Appointment Physical Therapy Simon Davis, PT [address] [place], [place] [address] (Wo rk) documented as of this encounter Visit Diagnoses Diagnosis Status post lumbar surgery - Primary Other postprocedural status documented in this encounter Care Teams Scrape Gatherer Relationship Specialty Start Date End Date Non Pn, Clinician, PCP - General 04/23/13 [place] [address] documented as of this encounter
--- OUTSIDE RECORDS SUMMARY | 2021-12-03 11:16 | XMS_ITS | Encounter Summary ---
:1955 Author Organization [employer] Address [address] [place] [address] Care Team Providers Name Role Phone Non Pn, Clinician MD Primary Care Provider Unavailable Reason for Visit Reason Comments Spine Lumbar Encounter Details Date Type Department Care Team Description 06/08/2021 Therapy [place] [facility] Lyndon Davis ea, PT Status post lumbar Therapy [address] surgery (Primary Dx) [address] [place] [address] [place] [address] [phone] Social History Tobacco Use Types Packs/Day Years Used Date Smoking Tobacco: Never Alcohol Use Standard Drinks/Week Comments No 0 (1 standard drink = 0.6 oz pure alcoho l) Sex Assigned at Date Recorded Not on file documented as of this encounter Progress Notes Simon Davis, PT - 06/08/2021 12:30 PM CDT [facility] Physical Therapy Progress Note Visit Number: 4 Initial Certification Period: 05/20/2021 to 08/18/21 Referring Provider: Jose Khan Surgery: Right L2-3 minimally invasive TLIF Surgical date: 04/27/21 Visit Diagnosis: 1. Status post lumbar surgery Precautions: L2/3 fusion, lifting up to 25 pounds, LSO SUBJECTIVE: Gloria reports that she ended up in the hospital for evaluation after she was feeding the cats and felt a pop with increased pain in the R lower back. Did have a followup with the surgeon as well to getchecked out. Still feels sore and really tight in the R lumbar spine since tweaking it. Reports no worsening of symptoms into her R LE. Less compliant with HEP as a result. Has to leave about 10 minutes early today. OBJECTIVE Current Objective Findings: None taken Treatment/Education Today: Therapeutic exercise x 16 minutes: - verbally reviewed HEP and updated for home - side-lying hip abduction x 10 reps - hook-lying clamshell with resistance band and lower abdominal recruitment x 10 reps - bridge with resistance band and lower abdominal recruitment x 10 reps - supine sequential march to 90-90 with lower abdominal recruitment x 10 reps - supine leg extension with lower abdominal recruitment x 10 reps bilaterally Manual therapy x 16 minutes: - MFR R quadratus lumborum and piriformis Timed Code Treatment Minutes: 32 Total Treatment Minutes: 32 Current Home Exercise Program List: Access Code: [email or web address] Sidelying Hip Abduction - 2 x daily - 7 x weekly - 10 reps Clamshell - 2 x daily - 7 x weekly - 10 reps Sidelying Reverse Clamshell - 2 x daily - 7 x weekly - 10 reps Hooklying Clamshell with Resistance - 2 x daily - 7 x [...] walking consistent with post-op status. Patient tolerated progression of exercises well and without increased discomfort today. Reported less pain and easier time bending forward to don her CAM boot following manual therapy. Functional Goals/Outcomes: HEP/Independent Management: Demonstrate independence with [...] 12/17/2021 Appointment Physical Therapy Simon Davis, PT [address] [place], [place] [address] (Wo rk) documented as of this encounter Visit Diagnoses Diagnosis Status post lumbar surgery - Primary Other postprocedural status documented in this encounter Care Teams Career Orientation Teacher Relationship Specialty Start Date End Date Non Pn, Clinician, PCP - General 04/23/13 [place] [address] documented as of this encounter
--- OUTSIDE RECORDS SUMMARY | 2021-12-03 11:16 | XMS_ITS | Encounter Summary ---
:1955 Author Organization [employer] Address [address] [place] [address] Care Team Providers Name Role Phone Non Pn, Clinician MD Primary Care Provider Unavailable Reason for Visit Reason Comments Spine Lumbar Encounter Details Date Type Department Care Team Description 01/16/2021 Therapy [facility] Jaqui Hatfield, [facility] - Physical PT (Primary Dx) Therapy [address] [address] [place] [address] [place], [place] [id number] [phone] Social History Tobacco Use Types Packs/Day Years Used Date Smoking Tobacco: Never Alcohol Use Standard Drinks/Week Comments No 0 (1 standard drink = 0.6 oz pure alcoho l) Sex Assigned at Date Recorded Not on file documented as of this encounter Progress Notes Jaqui Hatfield, PT - 01/16/2021 10:45 AM CDT [facility] Therapy - Lumbar Spine Evaluation/Plan of Care Initial Certification Period: 01/16/2021 to 02/15/2021 Referring Provider: Fabio Collins Visit Diagnosis: 1. Lumbar radiculopathy Precautions: None Orders: Evaluate & treat Onset/Referral Date: 01/16/2021 SUBJECTIVE Reason for Visit: Patient presents to PT with chronic, severe lumbar radiculopathy. Reports she has severe spinal stenosis and is looking to undergo sugery. She underwent PT about a year ago for this and it did not resolve. Presents today for a re-evaluation prior to undergoing surgery. Severe stenosis lumbar L1-2. Herniation. Right side pain down into right fglut. Numbness in feet. Chronic. Awake all night. Patient Therapy Goals:Evaluation prior to undergoing surgery Past Medical History: Past medical history, medication, and allergies were reviewed in the electronic medical record. History pertinent to therapy includes left TKA. Recently Experienced (Red Flags): None Recently Experienced (Yellow Flags): None Previous Treatment: physical therapy, injections Benefited from previous treatment: no Pain details: Pain location: right low back into right glut and right leg Other symptoms: numbness in feet Sleep interruptions: Yes: many times per night. 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 Patient History: Moderate Complexity: 1-2 personal factors and/or comorbidities that impact plan of care: Chronicity of symptoms, failure of conservative measures OBJECTIVE Observation: normal ROM: Flexion to ankles, no pain Extension 75% limited, pain on right Sidebend left to knee joint line, pain on right Sidebend right to knee joint line, pain on right Strength: Core Strength: Isometric Transverse Abdominus activation: weak Neurological: Myotomes/Strength: Right: Strong, but increased effort R LE compared to L Dermatomes: Altered right: L5 and S1 SpecialTests: Slump Test Right: Symptom reproduction Mobility/Transfer - Guarded Gait Exam - Antalgic, lateral shift towards right Stairs: step-to pattern with heavy use of rails Clinical Examination: Moderate Complexity: Addressed 3 elements from body structures and functions (see above), and/or functional limitations as noted below. Today's Intervention/Charges: Physical Therapy Evaluation was completed and the patient was educated on the condition, planned therapy intervention and expectations from treatment. Therapeutic exercise x 3 minutes: Verbally reviewed home exercise program that patient performed through last course of PT: Access Code: [email or web address] Supine Lower Trunk Rotation - 2 reps - 30 seconds hold - 2x daily - 7x weekly Supine Bridge - 10 reps - 5 hold - 2x daily - 7x weekly Supine Piriformis Stretch - 2 reps - 30 seconds hold - 2x daily - 7x weekly Supine LE Neural Mobilization - 10 reps - 2x daily - 7x weekly Standing Hip Abduction with Counter Support - 10 reps - 2x daily - 7x weekly Single Leg Stance with Support - 2 reps - 30 seconds hold - 2x daily - 7x weekly Timed Code Treatment Minutes: 3 Total Treatment Minutes: 18 ASSESSMENT Therapist Impression/Summary: Patient presents to PT with chronic, severe right- sided lumbar radiculopathy. She has not responded to a full course of PT and objective measures show a symptom progression compared to a year ago. Reviewed home exercises and instructed to continue these up until patient likely undergoes surgery. Due to previous PT, recommend follow-up with PT as needed and deemed appropriate by physician. PT Clinical Presentation: Moderate Complexity: Evolving Clinical Presentation with changing clinical characteristics Clinical Decision Making: Moderate Complexity Recommendations/Equipment: No additional recommendations at this time Significant Impairments: Pain, Muscle tightness/decreased flexibility, Muscle weakness, Muscular imbalances, Joint hypomobility, ROM Limitation, Proprioception deficits Functional Limitations: difficulty sleeping, difficulty dressing, difficulty with household tasks, difficulty meeting work demands, difficulty with gait and difficulty with stairs Goals/Functional Outcomes: HEP/Independent Management: Demonstrate independence with HEP and self- management following each treatment session MET Barriers to Goal Achievement or Learning: none Prognosis: Fair due to failure of conservative measures PLAN Planned Intervention/Education: ADL/Self Management, Education, Gait training, Manual Therapy, Mechanical Traction, Neuromuscular Re-education, Therapeutic Activities, Therapeutic Exercise Frequency: Once only - No further therapy indicated unless deemed appropriate by referring provider Duration: 90 days Discharge Plan: Patient will be discharged from therapy when goals are achieved or patient plateaus in progress. Informed Consent: Patient and/or family in agreement with the care plan. Plan for Next Treatment: Follow-up with PT as needed The tourism radio presenter is completed by the therapist and the referring clinician's electronic signature certifies medical necessity for the plan above. documented in this encounter Plan of Treatment Upcoming Encounters Date Type Specialty Care Team Description 12/17/2021 Appointment Physical Therapy Simon Davis, PT [address] [place], [place] [address] (Wo rk) documented as of this encounter Visit Diagnoses Diagnosis Lumbar radiculopathy - Primary Thoracic or lumbosacral neuritis or radi culitis, unspecified documented in this encounter Care Teams Plant Protection Guard Relationship Specialty Start Date End Date Non Pn, Clinician, PCP - General 04/23/13 [place] [address] documented as of this encounter
--- OUTSIDE RECORDS SUMMARY | 2021-12-03 11:16 | XMS_ITS | Encounter Summary ---
:1955 Author Organization [employer] Address [address] [place] [address] Care Team Providers Name Role Phone Non Pn, Clinician MD Primary Care Provider Unavailable Reason for Visit Reason Comments Spine Lumbar Encounter Details Date Type Department Care Team Description 05/20/2021 Therapy [place] [facility] Lyndon Davis ea, PT Status post lumbar Therapy [address] surgery (Primary Dx) [address] [place] [address] [place] [address] [phone] Social History Tobacco Use Types Packs/Day Years Used Date Smoking Tobacco: Never Alcohol Use Standard Drinks/Week Comments No 0 (1 standard drink = 0.6 oz pure alcoho l) Sex Assigned at Date Recorded Not on file documented as of this encounter Progress Notes Simon Davis, PT - 05/20/2021 2:30 PM CST [facility] Physical Therapy - Lumbar Spine Evaluation/Plan of Care Initial Certification Period: 05/20/2021 to 08/18/21 Referring Provider: Jose Khan Surgery: Right L2-3 minimally invasive TLIF Surgical date: 04/27/21 Visit Diagnosis: 1. Status post lumbar surgery Precautions: L2/3 fusion, lifting up to 25 pounds, LSO Orders: Evaluate & treat Onset/Referral Date: DOS 04/27/21, referral 05/18/21 SUBJECTIVE Reason for Visit: Patient presents to physical therapy 3.5 weeks s/p minimally invasive lumbar fusion. Overall she's not having much pain; does get some burning discomfort in the lower back and buttocks. Her biggest complaint is that her R LE is completely numb and she gets spasms in her buttock at nighttime. The numbness in the leg makes walking difficult. She is currently using a 4WW because she feels like her balance is off without assistive device due to the numbness. She is walking in the houseevery hour. Does have an LSO but doesn't have it all of the time. Reports that she is on a 25 pound weight restriction. Has concerns about her current plan to go back to work in two weeks. Patient Therapy Goals: Resume previous level of activity symptom free. Past Medical History: Past medical history, medication, and allergies were reviewed in the electronic medical record and per patient report. History pertinent to therapy includes hx L TKA. Recently Experienced (Red Flags): None Recently Experienced (Yellow Flags): Emotional responses (worry, fear, anxiety) Pain details: Current pain intensity level: 2/10 Pain location: Right buttock Other symptoms: numbness entire R LE Sleep interruptions: Yes: a couple times per night to reposition. 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 Patient History: Moderate Complexity: 1-2 personal factors and/or comorbidities that impact plan of care: Hx L TKA OBJECTIVE Observation: normal; incisions healing well Screening: Hip Screen: Hip PROM: Within Normal Limits Alvin Left: WNL Alvin Right: WNL Lumbar AROM: Flexion: WNL Extension: not tested Sidebend left: 50% Sidebend right: 50% Rotation left: 75% Rotation right: 75% Strength: Core Strength: Isometric Transverse Abdominus activation: good Neurological: Myotomes/Strength: Right: Hip flexion (L1, 2): 3/5 Knee extension (L3): 5/5 Ankle dorsiflexion (L4): 4/5 Great toe extension-EHL (L5): 2/5 Plantar flexion (S2): 4/5 Flexibility: Restricted Right: quadratus, piriformis, iliopsoas and rectus femoris Joint Mobility: Not tested Palpation/Tenderness - Right quadratus lumborum, piriformis Special Tests: Slump Test Right: Symptom reproduction with knee extension SLR Right: WNL Mobility/Transfer - WNL Gait Exam - Antalgic without assistive device PHQ-2 Score: 4 Score >/= 3 - Recommended follow-up with Primary Care to discuss depression symptoms Patient verbalizes safety. PT - Spine, Lumbar/SI Modified Oswestry Low Back Pain Questionnaire (0-100%, 0% being best): 64 Clinical Examination: High Complexity: Addressed 4 or more elements from body structures and functions (see above), and/orfunctional limitations as noted below. Today's Intervention/Charges: Physical Therapy Evaluation was completed and the patient was educated on the condition, planned therapy intervention and expectations from treatment. Therapeutic exercise x 15 minutes: Discussed using cane for ambulation with instruction to use in L UE Patient was instructed in and performed: - hook-lying pelvic tilt 5 seconds x 10 reps - hook-lying march with lower abdominal recruitment x 10 reps - supine piriformis stretch - seated hamstring stretch - seated slump nerve glide x 10 reps Timed Code Treatment Minutes: 15 Total Treatment Minutes: 40 Home Exercise Program: Access Code: [email or web address] Supine Posterior Pelvic Tilt - 2 x daily - 7 x weekly - 10 reps - 5 seconds hold Supine March with Posterior Pelvic Tilt - 2 x daily - 7 x weekly - 20 reps Supine Piriformis Stretch with Leg Straight - 2 x daily - 7 x weekly - 2 reps - 30 seconds hold Slump Stretch - 2 x daily - 7 x weekly - 10 reps Seated Hamstring Stretch - 2 x daily - 7 x weekly - 2 reps - 30 seconds hold ASSESSMENT Therapist Impression/Summary: Lumbar ROM limitation, muscle weakness, decreased muscle flexibility, nerve tension, and difficulty walking consistent with post- op status. We did discuss pushing her workstart date back two weeks if possible to give her a month of PT for strengthening and flexibility; at this time she still requires a walker for mobility and at her job she would be standing for severalhours. Patient will benefit from skilled physical therapy services to address limitations and returnto prior level of functional mobility. PT Clinical Presentation: Low Complexity: Stable and Uncomplicated Clinical Decision Making: Low Complexity Recommendations/Equipment: No additional recommendations at this time Significant Impairments: Pain, Muscle tightness/decreased flexibility, Muscle weakness, ROM Limitation, Neurological signs/symptoms, Surgery aftercare Functional Limitations: difficulty dressing, difficulty with household tasks, difficulty meeting work demands, difficulty with driving, difficulty with gait and difficulty with stairs Goals/Functional Outcomes: HEP/Independent Management: Demonstrate independence with HEP and self- management following each treatment session ADL's: Stand for at least 30 minutes without increased symptoms in 4 weeks. Driving: Drive with ease and safety in 4 weeks. Ambulation: Ambulate with normal gait pattern in 6 weeks. Ambulation: Ambulate for at least 20 minutes with ease in 8 weeks. Work: Return to work without restrictions in 6-8 weeks. Barriers to Goal Achievement or Learning: none Prognosis: Good PLAN Planned Intervention/Education: ADL/Self Management, Gait training, Manual Therapy, Neuromuscular Re-education, Therapeutic Activities, Therapeutic Exercise Frequency: 2 x week x 4 weeks with progression to 1 x week x 4 weeks Duration: 90 days Discharge Plan: Patient will be discharged from therapy when goals are achieved or patient plateaus in progress. Informed Consent: Patient and/or family in agreement with the care plan. Plan for Next Treatment: core/glute strengthening, MFR QL and piriformis The plan of care has been sent to the out of network referring clinician for signature to certify medical necessity for the plan above. IAL DISTRIBUTION CLERK documented in this encounter Plan of Treatment Upcoming Encounters Date Type Specialty Care Team Description 12/17/2021 Appointment Physical Therapy Simon Davis, PT [address] [place], [place] [address] (Wo rk) documented as of this encounter Visit Diagnoses Diagnosis Status post lumbar surgery - Primary Other postprocedural status documented in this encounter Care Teams Filenet Developer Relationship Specialty Start Date End Date Non Pn, Clinician, PCP - General 04/23/13 [place] [address] documented as of this encounter
--- OUTSIDE RECORDS SUMMARY | 2021-12-03 11:16 | XMS_ITS | Encounter Summary ---
:1955 Author Organization [email or web address] Address [address] [place] [address] Care Team Providers Name Role Phone Non Pn, Clinician MD Primary Care Provider Unavailable Reason for Visit Reason Comments Ankle Problem Therapies (Routine) - New Request Specialty Diagnoses / Procedures Referred By Contact Refer red To Contact Physical Therapy Diagnoses Right distal fibula fracture, Right lateral ankle sprain Jc Amaro MD [id number] Physical Therapy [address] [place] [address] [place] [address] [place] [address] Phone: Fax: Referral ID Status Reason Start Date Expiration Date Visits V isits Requested Authorized [id number] New Request 07/08/2021 10/07/2022 1 1 Encounter Details Date Type Department Care Team Description 07/13/2021 Therapy [place] Sprain of anterior Therapy [address] talofibular ligament of [address] right ankle, [place] [id number] encounter (Primary Dx) [place] [address] [phone] Social History Tobacco Use Types Packs/Day Years Used Date Smoking Tobacco: Never Alcohol Use Standard Drinks/Week Comments No 0 (1 standard drink = 0.6 oz pure alcoho l) Sex Assigned at Date Recorded Not on file documented as of this encounter Progress Notes Ryan Simon Alejanrda, PT - 07/13/2021 12:30 PM CDT [facility] Physical Therapy Ankle Evaluation/Plan of Care Initial Certification Period: 07/13/2021 to 09/11/21 Referring Provider: Jose Khan Visit Diagnosis: 1. Sprain of anterior talofibular ligament of right ankle, subsequent encounter Precautions: L2/3 minimally invasive TLIF on 05/07/21 - currently in PT Orders: Evaluate & treat Onset/Referral Date: onset 05/30/21 and then 06/19/21 SUBJECTIVE Reason for Visit: Patient currently being seen by me for post-op lumbar surgery rehab presents with new PT orders to treat R ankle. She rolled/sprained her ankle back on 05/30/21 and then it sprained again on 06/19/21 which also caused small fracture in her distal fibula. She is now out of her CAM boot and the ankle feels pretty good. It does not cause her any pain, it just feels weak. Feels this when she's on her feet for a long time or navigating stairs. She does have a limp due to R hip/gluteal weakness after lumbar surgery. Patient Therapy Goals: Resume previous level of activity symptom free. Past Medical History: Past medical history, medication, and allergies were reviewed in the electronic medical record. History pertinent to therapy includes hx L TKA, L2/3 fusion. 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 Patient History: Moderate Complexity: 1-2 personal factors and/or comorbidities that impact plan of care: hx L TKA, L2/3 fusion OBJECTIVE Observation: Bilateral: pes planus Edema: None ROM: PROM Right Dorsiflexion: 2 degrees Plantarflexion: 55 degrees Inversion: 45 degrees Eversion: 20 degrees Strength: Right: DF: 5/5 PF: 5/5 Inversion: 5/5 Eversion: 3+/5 Joint Mobility: Right: Talocrural Hypomobile Subtalar WNL Distal tibiofibular Hypomobile Flexibility: Gastroc/Soleus: Restricted Palpation: Right tender: talofibular ligament Special Tests: Right: Anterior drawer test: Negative Proprioception: Single leg stance: unable Gait Exam: Excessive pronation, Decreased toe off, and Heel strike very supinated No outcome data collected. Clinical Examination: Moderate Complexity: Addressed 3 elements from body structures and functions (see above), and/or functional limitations as noted below. Today's Intervention/Charges: Physical Therapy Evaluation was completed and the patient was educated on the condition, planned therapy intervention and expectations from treatment. Therapeutic exercise x 10 minutes: Patient was instructed in and performed: - isometric eversion 5 seconds x 10 reps - standing heel raises x 10 reps - step balance for modified SLS 30 seconds x 2 reps - standing gastroc stretch - standing soleus stretch Manual therapy x 10 minutes: - talocrural joint traction - grade III posterior glides talocrural and distal tibiofibular joints Timed Code Treatment Minutes: 20 Total Treatment Minutes: 35 Home Exercise Program: Access Code: [email or web address] Isometric Ankle Eversion at Wall - 2 [...] - 10 reps - 5 seconds hold ASSESSMENT Therapist Impression/Summary: Right ankle ROM limitation, joint hypomobility, and muscle weakness consistent with resolving ankle sprain/fracture. Patient will benefit from skilled physical therapy services to address limitations and return to prior level of functional mobility. PT Clinical Presentation: Low Complexity: Stable and Uncomplicated Clinical Decision Making: Low Complexity Recommendations/Equipment: No additional recommendations at this time Significant Impairments: Pain, Muscle tightness/decreased flexibility, Muscle weakness, Joint hypomobility, ROM Limitation, Proprioception deficits Functional Limitations: difficulty meeting work demands, difficulty with gait and difficulty with stairs Goals/Functional Outcomes: HEP/Independent Management: Demonstrate independence with HEP and self- management following each treatment session Ambulation: Ambulate with normal gait pattern with minimal to no symptoms/limp in 6-8 weeks. Ascend/descend stairs independently with reciprocal pattern with ease in 8 weeks. Barriers to Goal Achievement or Learning: [...] care plan. Plan for Next Treatment: progress ankle strength and proprioceptive exercises The art manager is completed by the therapist and the referring clinician's electronic signature certifies medical necessity for the plan above. documented in this encounter Plan of Treatment Upcoming Encounters Date Type Specialty Care Team Description 12/17/2021 Appointment Physical Therapy Simon Davis, PT [address] [place], [place] [address] (Wo rk) documented as of this encounter Visit Diagnoses Diagnosis Sprain of anterior talofibular ligament of right ankle, subsequent encounter - Primary documented in this encounter Care Teams Greens Planter Relationship Specialty Start Date End Date Non Pn, Clinician, PCP - General 04/23/13 [place] [address] documented as of this encounter
--- OUTSIDE RECORDS SUMMARY | 2021-12-03 11:16 | XMS_ITS | Encounter Summary ---
:1955 Author Organization [employer] Address [address] [address] Care Team Providers Name Role Phone Non Pn, Clinician MD Primary Care Provider Unavailable Reason for Visit Reason Comments CONSULT Encounter Details Date Type Department Care Team Description 06/12/2021 Office Visit Missy Forrest, Dysuria (P rimary Dx) [facility] [address] [place] [address] [phone] (Wo rk) Social History Tobacco Use Types Packs/Day Years Used Date Smoking Tobacco: Never Alcohol Use Standard Drinks/Week Comments No 0 (1 standard drink = 0.6 oz pure alcoho l) Sex Assigned at Date Recorded Not on file documented as of this encounter Progress Notes Missy Lopez, DENIA - 06/12/2021 12:00 AM CDT NAME: LUDA GARCIA CSN: [id number] CLINIC NOTE DATE OF SERVICE: 06/12/2021 : 1955 REASON FOR VISIT: Followup for urinary issues. CLLINICAL DATA: Luda is a very pleasant 65-year-old woman who I last saw 4 years ago. At that point, I saw her for some mixed urinary incontinence. She does have stress incontinence and I actually kind of talked to her about a sling, but she did not find the problem bothersome enough to move forward. However, more recently she had back surgery. She had a fusion of her L2-L3 spine at [facility]. Since that time, she did have some difficulty. She said she had problems with retention and they were intermittently catheterizing her, sometimes there was difficulty getting a catheter in. Also she had some UTIs. Most importantly, she was not emptying her bladder completely. Part of the problem is that she does have some perineal numbness following the surgery, which, she was told by her surgeons, should resolve. Her surgery was in April and now it is June 12, so she is still relatively fresh postop. She is here to see if there are any other issues. She notices it even when she walks she has some leakage and she has some increased frequency as well. PAST MEDICAL HISTORY: Reviewed and updated. MEDICATIONS: Reviewed and updated. ALLERGIES: TO MEPERIDINE AND MORPHINE. HABITS: Does not smoke. Does not drink. SOCIAL HISTORY: . Does not work. FAMILY HISTORY: No family history of urologic disease or illness. REVIEW OF SYSTEMS: Reviewed by myself noted be complete and no further as stated in the History of Present Illness. Remainder of complete systems is negative. PHYSICAL EXAM: GENERAL: Alert, pleasant woman in no acute distress. She has a back brace on. She hasa right foot brace on. NEUROLOGIC: Cranial nerves 1-12 are intact. PSYCHOLOGIC: Normal mood affect. SKIN: Shows integumentary system without rashes, lesions, or ulcers MUSCULOSKELETAL: Exam reveals she moves all 4 extremities equally. She is bladder scanned for residual of 20 mL. : Exam shows normal genitalia with normal hair distribution. Cystoscopy was carried out to rule out any intravesical pathology. This shows normal urethra. Upon entry bladder the trigone is visualized. Both ureteral orifices are visualized with clear efflux. No mucosal lesions, stones, or tumors were noted. The scope was then withdrawn. DISCUSSION: I had a discussion with Luda. At this point, everything looks good. At this point, I think a lot of her symptoms are just going to resolve with time. She is emptying her bladder well and Isuspect she has some pelvic weakness as a result of her surgery and as her weakness improves, she will also have improvement of her incontinence and frequency. At this point, I reassured her. If she has problems in the future, I would be happy to see her back, but actually I think I will just see her back in 3-4 months to see how she is doing. Luda and I had a good discussion. IMPRESSION: Urinary incontinence. At this point I had reassured her. I will see her back in 3-4 months to see how she is doing. If she is not improved, we may consider urodynamics at that point in time. Luda and I had a good discussion. DENIA ANTUNEZ/PAWAN /[id number] documented in this encounter Plan of Treatment Upcoming Encounters Date Type Specialty Care Team Description 12/17/2021 Appointment Physical Therapy Simon Davis, PT [address] [place], [place] [address] (Wo rk) Scheduled Orders Name Type Priority Associated Diagnoses Order S chedule POCT Automated Point of Care Routine Dysuria Ordered: 03/2021 Urinalysis Dipstick documented as of this encounter Procedures Procedure Name Priority Date/Time Associated Comments Diagnosis AUTOMATED URINALYSIS Routine 06/12/2021 10:41 AM Results for this DIPSTICK POCT CDT procedure are in the results section. documented in this encounter Results Automated Urinalysis Dipstick POCT (06/12/2021 10:41 AM CDT) [facility] gist Method Time Signature Glucose Urine Negative Negative 06/12/2021 [facility] Qual (mg/dL) 10:43 AM CDT [address] Bilirubin Negative Negative 06/12/2021 [facility] Urine 10:43 AM CDT [address] [facility] Ketones, Urine Negative Negative 06/12/2021 [facility] (mg/dL) 10:43 AM CDT [address] [facility] Specific 1.020 1.005 - 06/12/2021 [facility] [place], Urine 1.030 10:43 AM CDT [address] [facility] Blood, Urine Negative Neg/Trace 06/12/2021 [facility] 10:43 AM CDT [address] [facility] PH Urine 5.5 5.0 - 8.0 06/12/2021 [facility] 10:43 AM CDT [address] [facility] Protein, Urine Negative Neg/Trace 06/12/2021 [facility] Qual (mg/dL) 10:43 AM CDT [address] [facility] Urobilinogen, 0.2 <2.0 06/12/2021 [facility] Urine (EU/dL) 10:43 AM CDT [address] [facility] Nitrite Urine Negative Negative 06/12/2021 [facility] 10:43 AM CDT [address] [facility] Leukocyte Est. Negative Negative 06/12/2021 [facility] 10:43 AM CDT [address] [facility] Urine Color Yellow Straw-Yellow 06/12/2021 [facility] 10:43 AM CDT [address] [facility] Urine Clarity Clear Clear 06/12/2021 [facility] 10:43 AM CDT [address] [facility] Performing URO PAPER FINISHER 06/12/2021 [facility] Location 10:43 AM CDT [address] [facility] Specimen Anatomical Collection Method Collection Time Receive d Time (Source) Location / / Volume Laterality Urine 06/12/2021 10:41 06/12/2021 AM CDT 10:43 AM CDT Missy LOZA LAB_1 Performing Organization Address City/State/ZIP Code Phon e Number [facility] [address] [place], [place] [address] [address] documented in this encounter Visit Diagnoses Diagnosis Dysuria - Primary documented in this encounter Care Teams Survey Questionnaire Designer Relationship Specialty Start Date End Date Non Pn, Clinician, PCP - General 04/23/13 [place] [address] documented as of this encounter
--- OUTSIDE RECORDS SUMMARY | 2021-12-03 11:16 | XMS_ITS | Encounter Summary ---
:1955 Author Organization [employer] Address [address] [place] [address] Care Team Providers Name Role Phone Non Pn, Clinician MD Primary Care Provider Unavailable Encounter Details Date Type Department Care Team Description 03/05/2021 Notes/Orders [place] [facility] Candy De La Rosa, PT Therapy [address] [place] [place] [address] [place] [address] Social History Tobacco Use Types Packs/Day Years Used Date Smoking Tobacco: Never Alcohol Use Standard Drinks/Week Comments No 0 (1 standard drink = 0.6 oz pure alcoho l) Sex Assigned at Date Recorded Not on file documented as of this encounter Progress Notes Venessa De La Rosa PT - 03/05/2021 11:59 PM CST [facility] Physical Therapy Discharge Summary Gloria Bonilla has not attended therapy since last documented visit. There are no further visits scheduled at this time and Gloria is currently considered discharged from therapy. Unable to assess current level of function and goals due to unplanned discharge. PT - Discharge Total Visits: 1 Reason for discharge: Patient experienced medical complications and was unable to complete this episode of care as planned. Please see previous visit documentation of status at last treatment. Venessa De La Rosa PT documented in this encounter Plan of Treatment Upcoming Encounters Date Type Specialty Care Team Description 12/17/2021 Appointment Physical Therapy Simon Davis, PT [address] [place], [place] [address] (Wo rk) documented as of this encounter Visit Diagnoses Not on filedocumented in this encounter Care Teams Staff Mechanical Engineer Relationship Specialty Start Date End Date Non Pn, Clinician, PCP - General 04/23/13 [place] [address] documented as of this encounter
--- OUTSIDE RECORDS SUMMARY | 2021-12-03 11:16 | XMS_ITS | Encounter Summary ---
:1955 Author Organization [employer] Address [address] [place] [address] Care Team Providers Name Role Phone Non Pn, Clinician MD Primary Care Provider Unavailable Reason for Visit Reason Comments Hip Problem Encounter Details Date Type Department Care Team Description 01/21/2020 Office Visit [place] [facility] Simon Davis, Rig ht hip pain (Primary Dx); Therapy PT Neck pain [address] [place] [address] [place], [place] [phone] (Wo rk) Social History Tobacco Use Types Packs/Day Years Used Date Smoking Tobacco: Never Alcohol Use Standard Drinks/Week Comments No 0 (1 standard drink = 0.6 oz pure alcoho l) Sex Assigned at Date Recorded Not on file documented as of this encounter Progress Notes Simon Davis, PT - 01/21/2020 1:00 PM CST [facility] Progress Note Visit Number: 8 Initial Certification Period: 11/30/2019 to 01/29/20 Referring Provider: Russell Maria Visit Diagnosis: 1. Right hip pain 2. Neck pain Precautions: None SUBJECTIVE: Gloria states that her R hip is slowly getting better. She was really busy over the weekend and didn't get to her HEP. Still struggles with sit to stand after sitting for a while. OBJECTIVE Current Objective Findings: None taken Treatment/Education Today: Manual therapy x 28 minutes: - grade III lateral and inferior glides R hip - grade III posterior glides R hip - grade III-IV PA's lumbar spine - STM R IT Band using roller stick - MFR/STM R piriformis and gluteus medius Therapeutic exercise x 12 minutes: - verbally reviewed HEP - side-lying hip abduction x 10 reps, very weak - prone hip extension x 10 reps - prone ER/IR x 10 reps - SLS R LE 30 seconds 2 reps, fatiguing Timed Code Treatment Minutes: 40 Total Treatment Minutes: 40 Current Home Exercise Program List: Access Code: [email or web address] Supine Lower Trunk Rotation - 2 reps [...] hold - 2x daily - 7x weekly Seated Cervical Sidebending Stretch - 2 reps - 30 seconds hold - 2x daily - 7x weekly Seated Levator Scapulae Stretch - 2 reps - 30 seconds hold - 2x daily - 7x weekly Doorway Pec Stretch at 60 Elevation - 2 reps - 30 seconds hold - 2x daily - 7x weekly ASSESSMENT/PROGRESS TOWARD GOALS: Patient tolerates manual therapy well and feels this is beneficial. She is making good progress towards goals with ambulation near normal and tolerance to sitting is improved. Significant weakness in hip abductors; discussed that strengthening these and compliance with HEP is a big part of rehab/recovery. Functional Goals/Outcomes: HEP/Independent Management: Demonstrate independence with HEP and self- management following each treatment session. - MET, ongoing ADL's: Transition sit to stand without increased symptoms in 4 weeks. - difficult if sitting for 10+minutes ADL's: Resume previous sleeping pattern without awakening during the night in 4- 6 weeks. Ambulation: Ambulate with normal gait pattern in 4-6 weeks. - PROGRESSING Stairs: Ascend and descend stairs without increased symptoms in 6 weeks. - PROGRESSING Driving: Turn head to look over shoulders without increased symptoms in 4 weeks. PLAN: Progress core/hip strength - functional weighbearing strength, continue manual therapy to address joint and soft tissue restrictions CARE BILLER documented in this encounter Plan of Treatment Upcoming Encounters Date Type Specialty Care Team Description 12/17/2021 Appointment Physical Therapy Simon Davis, PT [address] [place], [place] [phone] (Wo rk) documented as of this encounter Visit Diagnoses Diagnosis Right hip pain - Primary Pain in joint, pelvic region and thigh Neck pain Cervicalgia documented in this encounter Care Teams Crowning Inspector Relationship Specialty Start Date End Date Non Pn, Clinician, PCP - General 04/23/13 [place] [address] documented as of this encounter
--- OUTSIDE RECORDS SUMMARY | 2021-12-03 11:16 | XMS_ITS | Encounter Summary ---
:1955 Author Organization [employer] Address [address] [place] [address] Care Team Providers Name Role Phone Non Pn, Clinician MD Primary Care Provider Unavailable Reason for Visit Reason Comments Hip Problem Encounter Details Date Type Department Care Team Description 01/18/2020 Office Visit [place] [facility] Simon Davis, Rig ht hip pain (Primary Dx); Therapy PT Neck pain [address] [place] [address] [place], [place] [phone] (Wo rk) Social History Tobacco Use Types Packs/Day Years Used Date Smoking Tobacco: Never Alcohol Use Standard Drinks/Week Comments No 0 (1 standard drink = 0.6 oz pure alcoho l) Sex Assigned at Date Recorded Not on file documented as of this encounter Progress Notes Simon Davis, PT - 01/18/2020 1:45 PM CST [facility] Progress Note Visit Number: 7 Initial Certification Period: 11/30/2019 to 01/29/20 Referring Provider: Russell Maria Visit Diagnosis: 1. Right hip pain 2. Neck pain Precautions: None SUBJECTIVE: Gloria states that her R hip continues to improve. Her walking is significantly better. Still struggles with sit to stand but even this isn't as intense of a pain. Pain is more localized to posterolateral hip versus radiating along IT Band. No new questions or concerns since session earlier this week. OBJECTIVE Current Objective Findings: None taken Treatment/Education Today: Manual therapy x 39 minutes: - grade III lateral and inferior glides R hip - grade III posterior glides R hip - grade III anterior glides R hip in prone figure 4 - grade III-IV PA's lumbar spine - MFR/STM R proximal IT Band, piriformis, and gluteus medius Timed Code Treatment Minutes: 39 Total Treatment Minutes: 39 Current Home Exercise Program List: Access Code: [email or web address] Supine Lower Trunk Rotation - 2 reps [...] reps - 2x daily - 7x weekly Seated [...] normal and tolerance to sitting is improved. Functional Goals/Outcomes: HEP/Independent Management: Demonstrate independence with [...] 4 weeks. PLAN: Progress core/hip strength - SLS activities, continue manual therapy to address joint and soft tissue restrictions S PROMOTION DIRECTOR documented in this encounter Plan of Treatment Upcoming Encounters Date Type Specialty Care Team Description 12/17/2021 Appointment Physical Therapy Simon Davis, PT [address] [place], [place] [address] (Wo rk) documented as of this encounter Visit Diagnoses Diagnosis Right hip pain - Primary Pain in joint, pelvic region and thigh Neck pain Cervicalgia documented in this encounter Care Teams Marshmallow Machine Worker Relationship Specialty Start Date End Date Non Pn, Clinician, PCP - General 04/23/13 [place] [address] documented as of this encounter
--- OUTSIDE RECORDS SUMMARY | 2021-12-03 11:16 | XMS_ITS | Encounter Summary ---
:1955 Author Organization [employer] Address [address] [place] [address] Care Team Providers Name Role Phone Non Pn, Clinician MD Primary Care Provider Unavailable Reason for Visit Reason Comments Spine Lumbar Encounter Details Date Type Department Care Team Description 06/30/2021 Therapy [place] [facility] Lyndon Davis ea, PT Status post lumbar Therapy [address] surgery (Primary Dx) [address] [place] [address] [place] [address] [phone] Social History Tobacco Use Types Packs/Day Years Used Date Smoking Tobacco: Never Alcohol Use Standard Drinks/Week Comments No 0 (1 standard drink = 0.6 oz pure alcoho l) Sex Assigned at Date Recorded Not on file documented as of this encounter Progress Notes Simon Davis, PT - 06/30/2021 10:45 AM CDT [facility] Progress Note Visit Number: 9 Initial Certification Period: 05/20/2021 to 08/18/21 Referring Provider: Jose Khan Surgery: Right L2-3 minimally invasive TLIF Surgical date: 04/27/21 Visit Diagnosis: 1. Status post lumbar surgery Precautions: L2/3 fusion, lifting up to 25 pounds, CAM boot R ankle SUBJECTIVE: Gloria reports that she's been less compliant with HEP this past week, so she's a little disappointedin herself because she was so good at doing it the week before. Feeling frustrated by the ongoing numbness in her bottom and incontinence; left a message for her surgeon this morning. The only numbnessin her leg that continues is in the anterior thigh. Her back and upper gluteals are feeling good. Still has some difficulty with lifting her R LE like in/out of the car or to get dressed. OBJECTIVE Current Objective Findings: None taken Treatment/Education Today: Therapeutic exercise x 32 minutes: - verbally reviewed HEP and updated for home - supine sequential march to 90-90 then double leg lower x 10 reps x 2 sets - supine bug alternating x 20 reps x 2 sets - 90-90 hamstring bridge on theraball x 10 reps x 2 sets - prone hip extension x 10 reps x 2 sets bilaterally - prone upper back extension x 10 reps x 2 sets - modified prone plank 45 seconds x 2 sets - prone femoral nerve flossing by PT Timed Code Treatment Minutes: 32 Total Treatment Minutes: 32 Current Home Exercise Program List: Access Code: [email or web address] Clamshell - 2 x daily - 5 x weekly - 10 reps - 2 sets Butterfly Bridge - 2 x daily - 5 x weekly - 10 reps - 2 sets Small Range Straight Leg Raise - 2 x daily - 5 x [...] and difficulty walking consistent with post-op status. Core strength with bed exercises continue to improve; once cleared to be out of boot will transition to functional strengthening. Functional Goals/Outcomes: HEP/Independent Management: Demonstrate independence with [...] 12/17/2021 Appointment Physical Therapy Simon Davis, PT [address] [place], [place] [phone] (Wo rk) documented as of this encounter Visit Diagnoses Diagnosis Status post lumbar surgery - Primary Other postprocedural status documented in this encounter Care Teams Cement Side Laster Relationship Specialty Start Date End Date Non Pn, Clinician, PCP - General 04/23/13 [place] [address] documented as of this encounter
--- OUTSIDE RECORDS SUMMARY | 2021-12-03 11:16 | XMS_ITS | Encounter Summary ---
:1955 Author Organization [employer] Address [address] [place] [address] Care Team Providers Name Role Phone Non Pn, Clinician MD Primary Care Provider Unavailable Reason for Visit Reason Comments Knee Problem Encounter Details Date Type Department Care Team Description 03/05/2021 Therapy [place] [facility] Venessa De La Rosa, C hronic pain of left Therapy PT knee (Primary Dx) [address] [place] [address] [place] [address] [phone] Social History Tobacco Use Types Packs/Day Years Used Date Smoking Tobacco: Never Alcohol Use Standard Drinks/Week Comments No 0 (1 standard drink = 0.6 oz pure alcoho l) Sex Assigned at Date Recorded Not on file documented as of this encounter Progress Notes Venessa De La Rosa, PT - 03/05/2021 11:45 AM CST [facility] Therapy Knee Evaluation/Plan of Care Initial Certification Period: 03/05/2021 to 05/04/21 Referring Provider: Nadine DE LA CRUZ Visit Diagnosis: 1. Chronic pain of left knee Precautions: None Orders: Evaluate & treat (1-4 visits) Onset/Referral Date: 03/02/21 SUBJECTIVE Reason for Visit: Patient presents in clinic today with complaints of L chronic knee pain. Has hx ofL TKA and states her muscles never fully strengthened up. Doctor referred her for quad strengtheningdue to pain from walking with her lumbar pain and notes her left leg has been buckling. Also notes she has upcoming lumbar surgery next October. Patient Therapy Goals:Resume previous level of activity symptom free. Past Medical History: Past medical history, medication, and allergies were reviewed in the electronic medical record. History is unremarkable. 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 Patient History: Low Complexity: No personal factors or comorbidities that impact plan of care OBJECTIVE Observation: WNL bilaterally Gait Exam: weight shifting to the R, trendelenburg on the R Edema:Not measured Screening: Hip Screen: Hypomobile with concurrent lumbar issues being treated with surgical intervention Ankle Screen: Within Normal Limits ROM: AROM Left Extension ROM: 0 deg Flexion ROM: 130 deg Right Extension ROM: 0 deg Flexion ROM: 130 deg Strength: L Hip MMT: Ankle DF-4+/5 Knee extension- 3+/5 Knee flexion-3/5 Hip abduction-3-/5 Hip adduction-4+/5 Hip flexion-3+/5 R Hip MMT: Ankle DF-4+/5 Knee extension- 4-/5 Knee flexion-4+/5 Hip abduction-4/5 Hip adduction-4+/5 Hip flexion-3/5 Joint Mobility: Left: Patellar WNL Tibiofemoral WNL Palpation: Left tender: Patellar tendon Special Tests: Not tested Proprioception: Single leg stance: 10 seconds with HHA2 Functional Tests: Single leg squat: Able to complete sit <> stand Flexibility: Hamstrings: Restricted Core Strength: Not tested PT - Musculoskeletal - Knee Knee Outcome Survey - ADL (0-100%, 100 being best): 33 Clinical Examination: Low complexity: Addressed 1-2 elements from body structures and functions (see above), and/or functional limitations as noted below. Today's Intervention/Charges: Physical Therapy Evaluation was completed and the patient was educated on the condition, planned therapy intervention and expectations from treatment. Therapeutic exercise x 15 minutes: Access Code: [email or web address] Exercises Supine Active Straight Leg Raise - 1 x daily - 7 x weekly - 1 sets - 10 reps - 5 hold Supine Bridge - 1 x daily - 7 x weekly - 1 sets - 10 reps Standing Terminal Knee Extension at Wall with Ball - 1 x daily - 7 x weekly - 1 sets - 10 reps - 5 hold Single Leg Stance - 1 x daily - 7 x weekly - 1 sets - 1 reps - 1 minute hold Sit to Stand without Arm Support - 1 x daily - 7 x weekly - 1 sets - 10 reps Attempted sidelying hip abduction, painful on R lumbar area where radicular pain is. Hold for now Education/Handouts: Diagnosis Education Timed Code Treatment Minutes: 15 Total Treatment Minutes: 40 ASSESSMENT Therapist Impression/Summary: Patient is presenting with signs and symptoms consistent with L functional quad weakness. Functional limitations include pain with sit <> stand motions and buckling with stairs. Patient is a good candidate for physical therapy and will benefit from skilled manual care and therapeutic measures. Recommend PT 1x a week for manual therapy, modalities, therapeutic exercise and HEP progression. PT Clinical Presentation: Low Complexity: Stable and Uncomplicated Clinical Decision Making: Low Complexity Recommendations/Equipment: No additional recommendations at this time Significant Impairments: Pain, Muscle weakness, Joint hypomobility, ROM Limitation Functional Limitations: difficulty sleeping, difficulty dressing, difficulty with household tasks, difficulty with driving and difficulty with gait Goals/Functional Outcomes: HEP/Independent Management: Demonstrate independence with HEP and self- management following each treatment session ADL's: Perform home management tasks with ease in 6 weeks. Ambulation: Ambulate with normal gait pattern on uneven surfaces with minimal to no symptoms/limp in4-6 weeks. Ascend/descend stairs independently with reciprocal pattern with minimal to no symptoms and improvedlower extremity alignment in 4-6 weeks. Barriers to Goal Achievement or Learning: none Prognosis: Excellent PLAN Planned Intervention/Education: ADL/Self Management, Education, Electrical Stimulation, Gait training, Heat/ice, Iontophoresis with Dexamethasone Sodium Phosphate 4 mg/mL solution prn with procedure toreduce inflammation. Deliver 1.0mL-1.5mL through iontophoresis patch to affected area., Isokinetic/Pe rformance Testing, Manual Therapy, Mechanical Traction, Neuromuscular Re- education, TENS application/self treatment, Therapeutic Activities, Therapeutic Exercise, Ultrasound Frequency: 1 x week Duration: 60 days Discharge Plan: Patient will be discharged from therapy when goals are achieved or patient plateaus in progress. Informed Consent: Patient and/or family in agreement with the care plan. Plan for Next Treatment: progress to lateral step ups/stair training as well as core support/ core training The plan of care has been sent to the out of network referring clinician for signature to certify medical necessity for the plan above. IONARY STEAM ENGINEER documented in this encounter Plan of Treatment Upcoming Encounters Date Type Specialty Care Team Description 12/17/2021 Appointment Physical Therapy Simon Davis, PT [address] [place], [place] [address] (Wo rk) documented as of this encounter Visit Diagnoses Diagnosis Chronic pain of left knee - Primary Pain in joint, lower leg documented in this encounter Care Teams Room Clerk Relationship Specialty Start Date End Date Non Pn, Clinician, PCP - General 04/23/13 [place] [address] documented as of this encounter
--- OUTSIDE RECORDS SUMMARY | 2021-12-03 11:16 | XMS_ITS | Encounter Summary ---
:1955 Author Organization [employer] Address [address] [place] [address] Care Team Providers Name Role Phone Non Pn, Clinician MD Primary Care Provider Unavailable Reason for Visit Reason Comments Spine Lumbar Encounter Details Date Type Department Care Team Description 06/23/2021 Therapy [place] [facility] Lyndon Davis ea, PT Status post lumbar Therapy [address] surgery (Primary Dx) [address] [place] [place] [address] [place] [address] [phone] Social History Tobacco Use Types Packs/Day Years Used Date Smoking Tobacco: Never Alcohol Use Standard Drinks/Week Comments No 0 (1 standard drink = 0.6 oz pure alcoho l) Sex Assigned at Date Recorded Not on file documented as of this encounter Progress Notes Simon Davis, PT - 06/23/2021 1:45 PM CDT [facility] Physical Therapy Progress Note Visit Number: 8 Initial Certification Period: 05/20/2021 to 08/18/21 Referring Provider: Jose Khan Surgery: Right L2-3 minimally invasive TLIF Surgical date: 04/27/21 Visit Diagnosis: 1. Status post lumbar surgery Precautions: L2/3 fusion, lifting up to 25 pounds, LSO SUBJECTIVE: Gloria reports that her back is feeling good and her upper gluteals are way less sore. On the down side, she twisted her ankle last Tuesday and when she followed up with the orthopedic physician she was told to be in the CAM boot for another two weeks. Feels like her ankle is getting really weak on thatside. Still has some R LE and difficulty with lifting her leg in/out of the car. OBJECTIVE Current Objective Findings: None taken Treatment/Education Today: Therapeutic exercise x 25 minutes: - verbally reviewed HEP and updated for home - supine single leg extension from 90-90 with lower abdominal recruitment x 10 reps x 2 sets bilaterally - supine sequential march to 90-90 with lower abdominal recruitment x 10 reps x 2 sets - supine shoulder extension with green resistance band with lower abdominal recruitment x 10 reps x2 sets bilaterally - 90-90 hamstring bridge on theraball x 10 reps x 2 sets - prone hip extension x 10 reps x 2 sets bilaterally Manual therapy x 10 minutes: - scar mobilization - MFR/STM upper gluteals Timed Code Treatment Minutes: 35 Total Treatment Minutes: 35 Current Home Exercise Program List: Access Code: [email or web address] Clamshell - 2 x daily - 5 [...] post-op status. Patient tolerated progression of exercises well; fatigue withsecond set of exercises. Functional Goals/Outcomes: HEP/Independent Management: Demonstrate independence with [...] 12/17/2021 Appointment Physical Therapy Simon Davis, PT [address] [place], [place] [address] (Wo rk) documented as of this encounter Visit Diagnoses Diagnosis Status post lumbar surgery - Primary Other postprocedural status documented in this encounter Care Teams Coffee Bar Attendant Relationship Specialty Start Date End Date Non Pn, Clinician, PCP - General 04/23/13 [place] [address] documented as of this encounter
--- OUTSIDE RECORDS SUMMARY | 2021-12-03 11:16 | XMS_ITS | Encounter Summary ---
:1955 Author Organization [employer] Address [address] [place] [address] Care Team Providers Name Role Phone Non Pn, Clinician MD Primary Care Provider Unavailable Encounter Details Date Type Department Care Team Description 01/21/2020 Notes/Orders [place] [facility] Lyndon Davis ea, PT Therapy [address] [place] [address] [place] [address] [phone] (Wo rk) Social History Tobacco Use Types Packs/Day Years Used Date Smoking Tobacco: Never Alcohol Use Standard Drinks/Week Comments No 0 (1 standard drink = 0.6 oz pure alcoho l) Sex Assigned at Date Recorded Not on file documented as of this encounter Progress Notes Simon Davis, PT - 01/21/2020 11:59 PM CST [facility] Discharge Summary Gloria Bonilla has not attended therapy since last documented visit. There are no further visits scheduled at this time and Gloria is currently considered discharged from therapy. Unable to assess current level of function and goals due to unplanned discharge. PT - Discharge Total Visits: 8 Reason for discharge: Patient's progress has plateaued or no longer requires skilled therapy. Please see previous visit documentation of status at last treatment. Simon Davis, PT USION DIE TEMPLATE MAKER documented in this encounter Plan of Treatment Upcoming Encounters Date Type Specialty Care Team Description 12/17/2021 Appointment Physical Therapy Simon Davis, PT [address] [place], [place] [address] (Wo rk) documented as of this encounter Visit Diagnoses Not on filedocumented in this encounter Care Teams Ethnoarchaeology Professor Relationship Specialty Start Date End Date Non Pn, Clinician, PCP - General 04/23/13 [place] [address] documented as of this encounter
--- OUTSIDE RECORDS SUMMARY | 2021-12-03 11:16 | XMS_ITS | Encounter Summary ---
:1955 Author Organization [facility] Address [address] [place] [address] Care Team Providers Name Role Phone Non Pn, Clinician MD Primary Care Provider Unavailable Reason for Visit Reason Comments CHEST PAIN Encounter Details Date Type Department Care Team Description 06/26/2021 Nurse Triage Careline Unassigned, Provider CHEST PAIN [address] [place], [place] [address] [place] [address] Social History Tobacco Use Types Packs/Day Years Used Date Smoking Tobacco: Never Alcohol Use Standard Drinks/Week Comments No 0 (1 standard drink = 0.6 oz pure alcoho l) Sex Assigned at Date Recorded Not on file documented as of this encounter Nursing Notes Zena Uriostegui RN - 06/26/2021 8:18 AM CDT Verified patient identity: yes Situation/Background (brief explanation of current symptoms/situation): Emergent transfer. Upper chest pain that radiates to back with deep inspiration since yesterday evening. Interfered with sleep. Denies other symptoms. Back surgery two months ago. H/o diabetes, htn, high cholesterol. Siblings havehad cardiac events and a sister of mi. [facility] care is [facility]. This technical writer and editor hasno access to providers or records. Reviewed with patient pertinent medical history (as it related to the call): No past medical historyon file. Reviewed with patient pertinent medications (as they relate to call): Current Outpatient Medications Medication Sig Note Dispense Refill ??? diphenhydrAMINE (BENADRYL) 25 MG capsule Take 50 mg by mouth. 11/21/2017: Received from: Katerine Sig: Take 50 mg by mouth nightly as needed No current facility-administered medications for this visit. Reviewed with patient pertinent allergies (as they relate to call): Meperidine and related and Morphine and related Plan: Advised asa and 911 now. Rationale discussed. She declines and prefers her to drive her to er. It is possible that you are experiencing a harmful medical condition for which staying home is not a safe place for your symptoms. Any delay in your care such as waiting for an appointment or being seen in the wrong place could be harmful to your health.?? You have the right to refuse my recommendation but I need to make sure you understand. Do you understand? Yes Zena Gutierrez RN Careline, 8:20 AM 06/26/2021 Zena Uriostegui RN - 06/26/2021 8:12 AM CDT Reason for Disposition ? ? [1] Chest pain lasts > 5 minutes AND [2] age > 30 AND [3] one or more cardiac risk factors(e.g., diabetes, high blood pressure, high cholesterol, smoker, or strong family history of heart disease) Answer Assessment - Initial Assessment Questions 1. LOCATION: Where does it hurt? upper, across the chest 2. RADIATION: Does the pain go anywhere else? (e.g., into neck, jaw, arms, back) Into back, worse when breathes in 3. ONSET: When did the chest pain begin? (Minutes, hours or days) 9:30 last night while watching tv. No home treatments tried. Unable to sleep secondary to pain. 4. PATTERN Does the pain come and go, or has it been constant since it started? Does it get worsewith exertion? Constant, worsens with deep inspiration 5. DURATION: How long does it last (e.g., seconds, minutes, hours) n/a 6. SEVERITY: How bad is the pain? (e.g., Scale 1-10; mild, moderate, or severe) - MILD (1-3): doesn't interfere with normal activities - MODERATE (4-7): interferes with normal activities or awakens from sleep - SEVERE (8-10): excruciating pain, unable to do any normal activities 2, mild, 4 with deep inspiration 7. CARDIAC RISK FACTORS: Do you have any history of heart problems or risk factors for heart disease? (e.g., angina, prior heart attack; diabetes, high blood pressure, high cholesterol, smoker, or strong family history of heart disease) Diabetes, htn, cholesterol, family history 8. PULMONARY RISK FACTORS: Do you have any history of lung disease? (e.g., blood clots in lung, asthma, emphysema, control pills) no 9. CAUSE: What do you think is causing the chest pain? unknown 10. OTHER SYMPTOMS: Do you have any other symptoms? (e.g., dizziness, nausea, vomiting, sweating, fever, difficulty breathing, cough) Sore throat for two days, worsening. Hasn't looked in throat. H/o covid in past, vaccinated. 11. : Is there any chance you are ? When was your last menstrual period? n/a Protocols used: CHEST [id number] Krisitn Barney - 06/26/2021 8:04 AM CDT Verified patient identity using three identifiers: Yes Caller's relationship to patient: Self Do you get your primary care at a HP or PN clinic: No/Other Other (Clinic Name)[facility] HP Select Member: No Symptoms Describe the reason for call/symptoms (include location and duration if applicable): Pt is having upper chest pain since last night, when she breaths in it is tight. Just had back surgery not to long ago. Plan:Caller transferred directly to CareLine nurse. documented in this encounter Plan of Treatment Upcoming Encounters Date Type Specialty Care Team Description 12/17/2021 Appointment Physical Therapy Simon Davis, PT [address] [place], [place] [address] (Wo rk) documented as of this encounter Visit Diagnoses Not on filedocumented in this encounter Care Teams Clinical Biochemist Relationship Specialty Start Date End Date Non Pn, Clinician, PCP - General 04/23/13 [place] [address] documented as of this encounter
--- OUTSIDE RECORDS SUMMARY | 2021-12-03 11:17 | XMS_ITS | Encounter Summary ---
:1955 Author Organization [facility] Address [address] [place] [address] Care Team Providers Name Role Phone Non Pn, Clinician MD Primary Care Provider Unavailable Reason for Visit Reason Comments Knee Problem Encounter Details Date Type Department Care Team Description 09/13/2017 Office Visit [place] [facility] Simon Davis, Sta tus post total Therapy PT left knee replacement [address] [place] [address] [place], [place] [phone] (Wo rk) Social History Tobacco Use Types Packs/Day Years Used Date Smoking Tobacco: Never Alcohol Use Standard Drinks/Week Comments No 0 (1 standard drink = 0.6 oz pure alcoho l) Sex Assigned at Date Recorded Not on file documented as of this encounter Progress Notes Simon Davis, PT - 09/13/2017 10:45 AM CDT Encounter date: 09/13/2017 Pt : 1955 [address] [facility] Progress Note Visit Number: 9 Initial Certification Period: 08/19/2017 to 10/18/17 Referring Provider: Russell Maria Surgical Procedure: Left total knee arthroplasty Surgical Date: 08/15/17 Visit Diagnosis: 1. Status post total left knee replacement Precautions: WBAT SUBJECTIVE: Patient states that her knee is feeling great. She did change her work schedule the first week to half days versus full days; goes back in two weeks. Pain is minimal to nonexistent. Still hesitant on stairs going down but is working on going up. She would like to work on being able to get up from the floor in the next couple weeks; enjoys playing with her grandchildren down on the floor. OBJECTIVE Current Objective Findings: Left Knee ROM: 0-123 degrees Knee outcome: 63% Treatment/Education Today: Therapeutic exercise x 30 minutes: - verbally reviewed HEP - recumbent bike x 8 minutes, seat 11, level 3.0, full revolutions - unilateral leg press 1 plate x 10 reps x 2 sets - ascending and descending 6 steps with reciprocal pattern 4 steps x 5 (20 total) - balance on bosu 30 seconds x 2 sets - single leg stance with contralateral LE performing flexion, extension, abduction x 10 reps each - single leg sit to stand from plinth x 10 reps - partial lunges attempted but painful for R knee Manual therapy x 10 minutes: - grade IV inferior glides patella - grade III-IV posterior glides tibia on femur - scar mobilization Timed Code Treatment Minutes: 40 Total Treatment Minutes: 40 Current Home Exercise Program List: Access Code: [email or web address] Step Up - 10 reps - 2 sets - 1x daily - 7x weekly Lateral Step Ups - 10 reps - 2 sets - 1x daily - 7x weekly Standing Single Leg Stance with Counter Support - 2 reps - 2 sets - 30 seconds hold - 1x daily - 7x weekly Squat with Chair Support - 10 reps - 2 sets - 1x daily - 7x weekly Standing Knee Flexion Stretch on Step - 10 reps - 1 sets - 5 hold - 2x daily - 7x weekly Supine Knee Extension Stretch on Towel Roll - 1 reps - 1 sets - 5 minutes hold - 2x daily - 7x weekly Lateral Step Down - 10 reps - 2 sets - 2x daily - 7x weekly ASSESSMENT/PROGRESS TOWARD GOALS: Patient's ROM is excellent and gait pattern is normal. Strength is progressing as expected; lacks unilateral and eccentric quad strength. Returns to work on 09/26/17. Functional Goals/Outcomes: HEP/Independent Management: Demonstrate independence with HEP and self- management following each treatment session. - MET, ongoing ADL's: Perform sit to stand transfer using involved lower extremity in 2 weeks. - MET ADL's: Dress lower extremities with ease in 2-4 weeks. - MET Driving: Drive with ease and safety in 4-6 weeks. - MET Ambulation: Ambulate with normal gait pattern with minimal to no symptoms/limp in 4-6 weeks. - MET Ambulation: Ambulate up and down incline using least restrictive assistive device to get to her boatin 4-6 weeks. - MET Ascend/descend stairs independently with reciprocal pattern with ease in 6 weeks. 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 Plan: Progress per post-op protocol documented in this encounter Plan of Treatment Upcoming Encounters Date Type Specialty Care Team Description 12/17/2021 Appointment Physical Therapy Simon Davis, PT [address] [place], [place] [phone] (Wo rk) documented as of this encounter Visit Diagnoses Diagnosis Status post total left knee replacement - Primary documented in this encounter Care Teams Kelp Gatherer Relationship Specialty Start Date End Date Non Pn, Clinician, PCP - General 04/23/13 [place] [address] documented as of this encounter
--- OUTSIDE RECORDS SUMMARY | 2021-12-03 11:17 | XMS_ITS | Encounter Summary ---
:1955 Author Organization [facility] Address [address] [place] [address] Care Team Providers Name Role Phone Non Pn, Clinician MD Primary Care Provider Unavailable Reason for Visit Reason Comments Knee Problem Encounter Details Date Type Department Care Team Description 01/02/2018 Office Visit [place] [facility] Simon Davis, Acu te pain of left Therapy PT knee (Primary Dx) [address] [place] [address] [place], [place] [phone] (Wo rk) Social History Tobacco Use Types Packs/Day Years Used Date Smoking Tobacco: Never Alcohol Use Standard Drinks/Week Comments No 0 (1 standard drink = 0.6 oz pure alcoho l) Sex Assigned at Date Recorded Not on file documented as of this encounter Progress Notes Simon Davis, PT - 01/02/2018 1:45 PM CDT Encounter date: 01/02/2018 Pt : 1955 [address] [facility] Progress Note Visit Number: 2 Initial Certification Period: 12/30/2017 to 02/13/18 Referring Provider: Russell Maria Visit Diagnosis: 1. Acute pain of left knee Precautions: Left TKA 08/15/17 SUBJECTIVE: Gloria states that her knee has been about the same through the weekend. Has been compliant with HEP. OBJECTIVE Current Objective Findings: None taken Treatment/Education Today: Manual therapy x 30 minutes: - MFR medial knee and near joint line - transverse cross friction massage pes anserine - patellar mobilizations all directions - kinesiotaping for MCL Timed Code Treatment Minutes: 30 Total Treatment Minutes: 30 Current Home Exercise Program List: Access Code: [email or web address] Supine Quad Set - 10 reps - 2 sets - 5 hold - 2x daily - 5x weekly Supine Active Straight Leg Raise - 10 reps - 2 sets - 5 hold - 12x daily - 5x weekly Sidelying Hip Abduction - 10 reps - 2 sets - 5 hold - 2x daily - 5x weekly ASSESSMENT/PROGRESS TOWARD GOALS: Patient continues to have significant medial knee pain near the joint line, appears to be soft tissue related. Demonstrates good joint mobility and ROM. Functional Goals/Outcomes: HEP/Independent Management: Demonstrate independence with HEP and self- management following each treatment session ADL's: Sit and cross left leg without increased symptoms in 4 weeks. Ambulation: Ambulate with normal gait pattern with minimal to no symptoms/limp in 4 weeks. Plan: Progress towards weightbearing strength documented in this encounter Plan of Treatment Upcoming Encounters Date Type Specialty Care Team Description 12/17/2021 Appointment Physical Therapy Simon Davis, PT [address] [place], [place] [phone] (Wo rk) documented as of this encounter Visit Diagnoses Diagnosis Acute pain of left knee - Primary documented in this encounter Care Teams Pulpwood Cutter Relationship Specialty Start Date End Date Non Pn, Clinician, PCP - General 04/23/13 [place] [address] documented as of this encounter
--- OUTSIDE RECORDS SUMMARY | 2021-12-03 11:17 | XMS_ITS | Encounter Summary ---
:1955 Author Organization [facility] Address [address] [place] [address] Care Team Providers Name Role Phone Non Pn, Clinician MD Primary Care Provider Unavailable Reason for Visit Reason Comments CONSULT Encounter Details Date Type Department Care Team Description 11/21/[address] [facility] [address], Mixed incontinence Urology DENIA (Primary Dx) [address] [facility] [address] [facility] [place] [address] [phone] Social History Tobacco Use Types Packs/Day Years [...] - documented in this encounter Progress Notes Missy Lopez MBBS - 11/21/2017 1:30 PM CDT Subjective: Gloria Bonilla is a 62 y.o. female who was self-referred for evaluation of urinary incontinence. This has been present for a few years. She leaks urine with coughing, walking, laughing, sneezing, with urge, with a full bladder, during the night. Patient describes the symptoms as bladder cramping, urge to urinate with little or no warning and urine leakage with coughing/heavy physical activity. Factors associated with symptoms include: worsening since childbirth several years ago.She had 2, 10lb babies by vaginal . Evaluation to date includes none. Treatment to date includes Kegel exercises,which was not very effective. No past medical history on file. There are no active problems to display for this patient. No past surgical history on file. No family history on file. Social History Social History ??? Marital status: Spouse name: N/A ??? Number of children: N/A ??? Years of education: N/A Social History Main Topics ??? Smoking status: Never Smoker ??? Smokeless tobacco: Not on file ??? Alcohol use No ??? Drug use: No ??? Sexual activity: Not on file Other Topics Concern ??? Not on file Social History Narrative ??? No narrative on file Current Outpatient Prescriptions Medication Sig Note Dispense Refill ??? diphenhydrAMINE (BENADRYL) 25 MG capsule Take 50 mg by mouth. 11/21/2017: Received from: Katerine Sig: Take 50 mg by mouth nightly as needed No current facility-administered medications for this visit. Allergies Allergen Reactions ??? Meperidine And Related Nausea And Vomiting ??? Morphine And Related Nausea And Vomiting Review of Systems Pertinent items are noted in HPI. Objective: CONSTITUTIONAL: She has moderately obese nutrition and body habitus. NEUROLOGIC: Cranial nerves 1-12 are intact. PSYCHOLOGICAL: She has normal mood and affect. SKIN: Normal integumentary system without rashes, lesions, or ulcers. RESPIRATORY: Normal Respiratory effort without use of accessory muscles. CARDIOVASCULAR/PERIPHERAL: Normal lower extremities without varicosities or swelling. MUSCULOSKELETAL: She moves all 4 extremities equally. ABDOMEN/GI: Soft, nontender, nondistended without masses or organomegaly. No rebound, guarding, or rigidity. No hernias identified. : Normal external genitalia with normal hair distribution. The urethra is orthotopic and adequate.Palpation of the urethra reveals no significant urethral masses. She has about 50-60 degrees of urethral mobility. After being prepped in a standard fashion, cystoscopy was carried out because she has a family h/o bladder cancer. . This shows a normal urethra. Upon entering the bladder the trigone is visualized. Both ureteral orifices are visualized with clear efflux. No mucosal lesions, stones or tumors were noted. The scope was then withdrawn. Patient tolerated the procedure well. I had her cough but no leakagewas noted. Lab Review Urine analysis shows Negative Micro exam: Clear Assessment: Incontinence. Severity = moderate Plan: The causes of incontinence and plan for evaluation and treatment were discussed. Appropriate educational materials were distributed. Trial of Myrbetriq for urgency Urodynamics See me after UDS for final recommendations. If there is no evidence of instability, then may consider a sling as she is interested in surgical repair. DENIA Bowden documented in this encounter Plan of Treatment Upcoming Encounters Date Type Specialty Care Team Description 12/17/2021 Appointment Physical Therapy Simon Davis, PT [address] [facility] [address] [place], [place] [phone] (Wo rk) documented as of this encounter Procedures Procedure Name Priority Date/Time Associated Diagnosis Comme nts AUTOMATED Routine 11/21/2017 1:47 PM Mixed incontinence Res ults for this URINALYSIS DIPSTICK CDT procedur e are in POCT the results section. documented in this encounter Results (ABNORMAL) Urinalysis Dipstick (11/21/2017 1:47 PM CDT) [facility] Method Time Signature Urine Glucose Negative mg/dL PN SOFT (POC) Urine Bilirubin Negative PN SOFT (POC) Urine Ketone Negative mg/dL PN SOFT (POC) Urine Specific 1.015 PN SOFT [place] (POC) Urine Occult Negative PN SOFT Blood (POC) Urine PH (POC) 6.0 PN SOFT Urine Protein Negative mg/dL PN SOFT (POC) Urine Negative mg/dL PN SOFT Urobilinogen (POC) Urine Nitrite Negative PN SOFT (POC) Urine Leukocytes Trace (A) PN SOFT (POC) Urine Color Yellow PN SOFT (POC) Urine Appearance Clear PN SOFT (POC) Comment: Performed at [facility] [place] [address] Strip Lot Number (POC) [id number] PN SOFT Specimen Anatomical Collection Method Collection Time Receive d Time (Source) Location / / Volume Laterality 11/21/2017 1:47 PM 8 1:35 CDT PM CDT Missy [facility]1 Performing Organization Address City/State/ZIP Code Phon e Number PN SOFT [address] [place] [address] documented in this encounter Visit Diagnoses Diagnosis Mixed incontinence - Primary Mixed incontinence urge and stress (male )(female) documented in this encounter Care Teams Dry Heat Cabinet Attendant Relationship Specialty Start Date End Date Non Pn, Clinician, PCP - General 04/23/13 [place] [address] documented as of this encounter
--- OUTSIDE RECORDS SUMMARY | 2021-12-03 11:17 | XMS_ITS | Encounter Summary ---
:1955 Author Organization [facility] Address [address] [place] [address] Care Team Providers Name Role Phone Non Pn, Clinician MD Primary Care Provider Unavailable Reason for Visit Reason Comments Hip Problem Encounter Details Date Type Department Care Team Description 11/30/2019 Office Visit [place] [facility] Simon Davis, Rig ht hip pain (Primary Dx); Therapy PT Neck pain [address] [place] [address] [place], [place] [phone] (Wo rk) Social History Tobacco Use Types Packs/Day Years Used Date Smoking Tobacco: Never Alcohol Use Standard Drinks/Week Comments No 0 (1 standard drink = 0.6 oz pure alcoho l) Sex Assigned at Date Recorded Not on file documented as of this encounter Progress Notes Simon Davis, PT - 11/30/2019 1:45 PM CDT [facility] Cervical Spine and Hip Evaluation/Plan of Care Initial Certification Period: 11/30/2019 to 01/29/20 Referring Provider: Russell Maria Visit Diagnosis: 1. Right hip pain 2. Neck pain Precautions: None Orders: Evaluate & treat Onset/Referral Date: onset 1 month SUBJECTIVE Reason for Visit: Patient presents with primary c/o R hip pain starting 1-2 months ago after gettinggel injection in her knee. The injection helped her knee pain significantly but she then developed aradiating pain that occurs from the lateral knee to the lateral hip. Denies low back pain, radiatingpain past the knee, or numbness/tingling. Pain is worst with transitioning sit to stand, taking initial steps, and navigating stairs. Better as she gets walking and moving like at work. Secondary c/o Rsided neck pain ongoing for about a month. She tweaked her neck and it still hasn't gone away. Pain is localized to the R cervical spine and goes up to the base of the skull. Worse with turning the head to the R. Denies radiating pain into the UE. She does get numbness in the R UE at night but no other time of the day. Patient Therapy Goals: Resume previous level of activity symptom free. Past Medical History: Past medical history, medication, and allergies were reviewed in the electronic medical record. History pertinent to therapy includes hx L TKA, R knee OA, polymyalgia rheumatica. Recently Experienced (Red Flags): None Previous Treatment: None Benefited from previous treatment: not applicable Pain details: Current pain intensity level: patient did not rate Pain location: R posterolateral hip and lateral thigh to knee, R cervical Spine Additional symptoms: Numbness R UE at night Sleep interruptions: Difficulty getting comfortable in order to sleep, especially if she wakes up atnight. 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 Patient History: High Complexity: 3 or more personal factors and/or comorbidities that impact plan of care: hx L TKA,R knee OA, polymyalgia rheumatica OBJECTIVE Observation: rounded shoulders Gait Exam: Antalgic ROM: Cervicl AROM: Flexion: WNL, pulling R Extension: WNL, pulling R Side-bend Right: WNL Side-bend Left: WNL, pulling on R Rotation Right: 75%, pain and pulling R Rotation Left: 100% Lumbar AROM: Flexion: WNL Extension: WNL Side-bend Right: WNL Side-bend Left: WNL, pulling on R Rotation Right: WNL Rotation Left: WNL, pulling on R Right Hip: Flexion: WNL, groin pain External Rotation: WNL Internal Rotation: WNL Strength: Right: Hip flexion: 3+/5, limited by pain Hip abduction: 3+/5 Knee extension: 5/5 Knee flexion: 5/5 Ankle dorsiflexion: 5/5 Ankle plantarflexion: 5/5 Shoulder abduction: 5/5 Elbow flexion: 5/5 Elbow extension: 5/5 Wrist flexion: 5/5 Wrist extension: 5/5 Flexibility: Hamstrings: Normal Quadriceps: Restricted Hip flexors: Restricted Piriformis: Restricted IT Band: Restricted Upper trap: Restricted Levator: Restricted Suboccipitals: Restricted Joint Mobility: Cervical Spine: mildly hypomobile lateral glide CT junction: hypomobile Thoracic Spine: hypomobile Lumbar Spine: WNL Hip/pelvis: WNL Palpation/Tenderness: Right quadratus lumborum, piriformis, gluteus medius, suboccipitals, levator, upper trap, scalenes Special Tests: Right: JULIAN: Positive hip findings FADIR: Positive hip findings Hip Scour Test: Negative Log Roll Test: Negative SLR: WNL Slump Test: Negative Spurling's: Negative CRLF test: Negative ULTT Median: positive ULTT Radial: negative ULTT Ulnar: negative Proprioception: Single leg stance: No increased pain Functional Tests: Double leg squat: WNL Physical Performance Measures: Not tested No outcome data collected. Clinical Examination: High Complexity: Addressed 4 or more elements from body structures and functions (see above), and/orfunctional limitations as noted below. Today's Intervention/Charges: Physical Therapy Evaluation was completed and the patient was educated on the condition, planned therapy intervention and expectations from treatment. Therapeutic exercise x 10 minutes: Patient was instructed in and performed: - supine lumbar rotation stretch - supine piriformis stretch - standing IT Band stretch - seated upper trap stretch - seated levator stretch - doorway pec stretch Manual therapy x 12 minutes: - bilateral suboccipital release - MFR R scalenes - MFR R gluteus medius Timed Code Treatment Minutes: 22 Total Treatment Minutes: 45 Home Exercise Program: Access Code: [email or web address] Supine Lower Trunk Rotation - 2 reps - 30 seconds hold - 2x daily - 7x weekly Supine Piriformis Stretch - 2 reps - 30 seconds hold - 2x daily - 7x weekly ITB Stretch at Wall - 2 reps - 30 seconds hold [...] hold - 2x daily - 7x weekly ASSESSMENT Therapist Impression/Summary: Right hip pain consistent with IT Band syndrome and piriformis syndrome. Right neck pain consistent with mechanical neck pain; numbness likely due to nerve tension. Patient presents with decreased muscle flexibility, muscle weakness, and cervical ROM limitation. She will benefit from skilled physical therapy services to address limitations and facilitate return to prior level of functional mobility. PT Clinical Presentation: Moderate Complexity: Evolving Clinical Presentation with changing clinical characteristics Clinical Decision Making: Moderate Complexity Recommendations/Equipment: No additional recommendations at this time Significant Impairments: Pain, Muscle tightness/decreased flexibility, Muscle weakness, Joint hypomobility, ROM Limitation Functional Limitations: difficulty sleeping, difficulty meeting work demands, difficulty with driving, difficulty with gait and difficulty with stairs Goals/Functional Outcomes: HEP/Independent Management: Demonstrate independence with HEP and self- management following each treatment session ADL's: Transition sit to stand without increased symptoms in 4 weeks. ADL's: Resume previous sleeping pattern without awakening during the night in 4- 6 weeks. Ambulation: Ambulate with normal gait pattern in 4-6 weeks. Stairs: Ascend and descend stairs without increased symptoms in 6 weeks. Driving: Turn head to look over shoulders without increased symptoms in 4 weeks. Barriers to Goal Achievement or Learning: none Prognosis: Good PLAN Planned Intervention/Education: ADL/Self Management, Manual Therapy, Neuromuscular Re-education, Therapeutic Activities, Therapeutic Exercise Frequency: 1-2 x week Duration: 60 days Discharge Plan: Patient will be discharged from therapy when goals are achieved or patient plateaus in progress. Informed Consent: Patient and/or family in agreement with the care plan. Plan for Next Treatment: manual therapy to address joint and soft tissue restrictions, consider nerve glide for HEP, supine chin tuck, hip strengthening The plan of care has been sent to the out of network referring clinician for signature to certify medical necessity for the plan above. documented in this encounter Plan of Treatment Upcoming Encounters Date Type Specialty Care Team Description 12/17/2021 Appointment Physical Therapy Simon Davis, PT [address] [place], [place] [phone] (Wo rk) documented as of this encounter Visit Diagnoses Diagnosis Right hip pain - Primary Pain in joint, pelvic region and thigh Neck pain Cervicalgia documented in this encounter Care Teams Functional Tester Relationship Specialty Start Date End Date Non Pn, Clinician, PCP - General 04/23/13 [place] [address] documented as of this encounter
--- OUTSIDE RECORDS SUMMARY | 2021-12-03 11:17 | XMS_ITS | Encounter Summary ---
:1955 Author Organization [facility] Address [address] [place] [address] Care Team Providers Name Role Phone Non Pn, Clinician MD Primary Care Provider Unavailable Reason for Visit Reason Comments Knee Problem Encounter Details Date Type Department Care Team Description 01/20/2018 Office Visit [place] [facility] Simon Davis, Acu te pain of left Therapy PT knee (Primary Dx) [address] [place] [address] [place], [place] [phone] (Wo rk) Social History Tobacco Use Types Packs/Day Years Used Date Smoking Tobacco: Never Alcohol Use Standard Drinks/Week Comments No 0 (1 standard drink = 0.6 oz pure alcoho l) Sex Assigned at Date Recorded Not on file documented as of this encounter Progress Notes Simon Davis, PT - 01/20/2018 1:45 PM CST Encounter date: 01/20/2018 Pt : 1955 [facility] Progress Note Visit Number: 4 Initial Certification Period: 12/30/2017 to 02/13/18 Referring Provider: Russell Maria Visit Diagnosis: 1. Acute pain of left knee Precautions: Left TKA 08/15/17 SUBJECTIVE: Gloria states that she still gets a stabbing pain in the medial knee with crossing the leg (figure4).her knee seems about the same. Stairs don't really hurt, but she does feel weak and clunky on them like her gait pattern isn't smooth. Has been okay with standing and walking. OBJECTIVE Current Objective Findings: Knee outcome: 50% Seated figure 4: pain reproduction, improved ROM before feeling the pain Treatment/Education Today: Manual therapy x 24 minutes: - STM soft tissue near medial joint line - grade III-IV medial glides knee - grade III-IV seated knee traction Therapeutic exercise x 14 minutes - reviewed HEP and updated for home - forward 6 step-ups x 10 reps, 8 x 10 reps - lateral 8 step-ups x 10 reps - single leg stance 60 seconds x 2 reps Timed Code Treatment Minutes: 38 Total Treatment Minutes: 38 Current Home Exercise Program List: Access Code: [email or web address] Single Leg Stance with Support - 2 reps - 60 seconds hold - 1x daily - 7x weekly Lateral Step Up with Counter Support - 10 reps - 2 sets - 1x daily - 7x weekly Side Lunge Adductor Stretch - 2 reps - 30 hold - 1x daily - 7x weekly Forward Step Up with Counter Support - 10 reps - 2 sets - 1x daily - 7x weekly ASSESSMENT/PROGRESS TOWARD GOALS: Patient continues to have significant medial knee pain near the joint line, appears to be soft tissue related as the the restriction is palpable. Knee pain is not reproduced with squatting or stairs, only rotation of the knee. Fatigues with weightbearing exercises. Functional Goals/Outcomes: HEP/Independent Management: Demonstrate independence with HEP and self- management following each treatment session. - MET, ongoing ADL's: Sit and cross left leg without increased symptoms in 4 weeks. - NOT MET Ambulation: Ambulate with normal gait pattern with minimal to no symptoms/limp in 4 weeks. 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 [place] [address] documented as of this encounter
--- OUTSIDE RECORDS SUMMARY | 2021-12-03 11:17 | XMS_ITS | Encounter Summary ---
:1955 Author Organization [facility] Address [address] [place] [address] Care Team Providers Name Role Phone Non Pn, Clinician MD Primary Care Provider Unavailable Reason for Visit Reason Comments Hip Problem Encounter Details Date Type Department Care Team Description 01/11/2020 Office Visit [place] [facility] Simon Davis, Rig ht hip pain (Primary Dx); Therapy PT Neck pain [address] [place] [address] [place], [place] [phone] (Wo rk) Social History Tobacco Use Types Packs/Day Years Used Date Smoking Tobacco: Never Alcohol Use Standard Drinks/Week Comments No 0 (1 standard drink = 0.6 oz pure alcoho l) Sex Assigned at Date Recorded Not on file documented as of this encounter Progress Notes Simon Davis, PT - 01/11/2020 11:30 AM CDT [facility] Therapy Progress Note Visit Number: 5 Initial Certification Period: 11/30/2019 to 01/29/20 Referring Provider: Russell Maria Visit Diagnosis: 1. Right hip pain 2. Neck pain Precautions: None SUBJECTIVE: Gloria states that she thinks the leg is getting better and she isn't limping quite as much. Sitting is still difficult, especially standing after sitting. Has been compliant with HEP but I should do it more. OBJECTIVE Current Objective Findings: None taken Treatment/Education Today: Manual therapy x 32 minutes: - grade III lateral and inferior glides R hip - grade III anterior glides R hip in prone figure 4 - grade III-IV PA's lumbar spine - MFR/STM R proximal IT Band, piriformis, and gluteus medius Therapeutic exercise x 6 minutes: - verbally reviewed HEP - clamshells x 10 reps - reverse clamshells x 10 reps, pain reproduction Timed Code Treatment Minutes: 38 Total Treatment Minutes: 38 Current Home Exercise Program List: Access Code: [email or web address] Supine Lower Trunk Rotation - 2 reps [...] manual therapy well and feels this is beenficial. Improved pain with ER following hip joint mobilizations and less limp evident. Encouraged ongoing compliance with HEP for carryover between therapy sessions. Right LE pain appears consistent with piriformis syndrome and greater trochanteric pain syndrome. Functional Goals/Outcomes: HEP/Independent Management: Demonstrate independence with [...] to address joint and soft tissue restrictions documented in this encounter Plan of Treatment Upcoming Encounters Date Type Specialty Care Team Description 12/17/2021 Appointment Physical Therapy Simon Davis, PT [address] [place], [place] [phone] (Wo rk) documented as of this encounter Visit Diagnoses Diagnosis Right hip pain - Primary Pain in joint, pelvic region and thigh Neck pain Cervicalgia documented in this encounter Care Teams Scrap Metal Processing Worker Relationship Specialty Start Date End Date Non Pn, Clinician, PCP - General 04/23/13 [place] [address] documented as of this encounter
--- OUTSIDE RECORDS SUMMARY | 2021-12-03 11:17 | XMS_ITS | Encounter Summary ---
:1955 Author Organization [facility] Address [address] [place] [address] Care Team Providers Name Role Phone Non Pn, Clinician MD Primary Care Provider Unavailable Encounter Details Date Type Department Care Team Description 01/30/2018 Notes/Orders [place] [facility] Lyndon Davis ea, PT Therapy [address] [place] [address] [place] [address] [phone] (Wo rk) Social History Tobacco Use Types Packs/Day Years Used Date Smoking Tobacco: Never Alcohol Use Standard Drinks/Week Comments No 0 (1 standard drink = 0.6 oz pure alcoho l) Sex Assigned at Date Recorded Not on file documented as of this encounter Progress Notes Simon Davis, PT - 01/30/2018 11:59 PM CST Encounter Date: 01/30/2018 Pt : 1955 [facility] Discharge Summary Patient was seen for therapy from 12/30/17 through 01/30/18. Patient was compliant with attendance and therapy recommendations. Patient fell and fractured her right patella, so therapy for her left knee was discontinued. PT - Discharge Total Visits: 4 Reason for discharge: Patient experienced medical complications and was unable to complete this episode of care as planned. Primary Therapist: Discharging therapist Outcome measures at discharge: PT - Musculoskeletal - Knee Knee Outcome Survey - ADL (0-100%, 100 being best): 71 Attainment of goals: The following is a review of the therapy goals: HEP/Independent Management: Demonstrate independence with HEP and self- management following each treatment session. - MET, ongoing ADL's: Sit and cross left leg without increased symptoms in 4 weeks. - PROGRESSING Ambulation: Ambulate with normal gait pattern with minimal to no symptoms/limp in 4??weeks. - PROGRESSING Discharge recommendations: Patient will continue to work independently with home program/self management strategies. APPRAISER documented in this encounter Plan of Treatment Upcoming Encounters Date Type Specialty Care Team Description 12/17/2021 Appointment Physical Therapy Simon Davis, PT [address] [place], [place] [phone] (Wo rk) documented as of this encounter Visit Diagnoses Not on filedocumented in this encounter Care Teams Chicken Vaccinator Relationship Specialty Start Date End Date Non Pn, Clinician, PCP - General 04/23/13 [place] [address] documented as of this encounter
--- OUTSIDE RECORDS SUMMARY | 2021-12-03 11:17 | XMS_ITS | Encounter Summary ---
:1955 Author Organization [facility] Address [address] [facility] [place] [address] Care Team Providers Name Role Phone Non Pn, Clinician MD Primary Care Provider Unavailable Reason for Visit Reason Comments Hip Problem Encounter Details Date Type Department Care Team Description 01/07/2020 Office Visit [place] [facility] Simon Davis, Rig ht hip pain (Primary Dx); Therapy PT Neck pain [address] [place] [address] [place], [place] [phone] (Wo rk) Social History Tobacco Use Types Packs/Day Years Used Date Smoking Tobacco: Never Alcohol Use Standard Drinks/Week Comments No 0 (1 standard drink = 0.6 oz pure alcoho l) Sex Assigned at Date Recorded Not on file documented as of this encounter Progress Notes Simon Davis, PT - 01/07/2020 1:45 PM CDT [facility] Therapy Progress Note Visit Number: 4 Initial Certification Period: 11/30/2019 to 01/29/20 Referring Provider: Russell Maria Visit Diagnosis: 1. Right hip pain 2. Neck pain Precautions: None SUBJECTIVE: Gloria states that she felt much better walking out of PT last week. Has been compliant with HEP. Feels like it's slowly getting better but still really bothers her with sit to stand after prolonged sitting. Ache occurs from the hip/buttock to the lateral knee. OBJECTIVE Current Objective Findings: Right Hip ROM: Flexion: WNL ER: pain reproduction at end-range IR: WNL JULIAN: pain reproduction Treatment/Education Today: Manual therapy x 39 minutes: - grade III posterior, latera,l and inferior glides R hip - MFR R pectineus - MFR/STM R proximal IT Band, piriformis, and gluteus medius - grade III-IV PA's thoracic spine Timed Code Treatment Minutes: 39 Total Treatment Minutes: 39 Current Home Exercise Program List: Access Code: [email or web address] Supine Lower Trunk Rotation - 2 reps [...] ASSESSMENT/PROGRESS TOWARD GOALS: Patient tolerates manual therapy well. Improved pain with ER following hip joint mobilizations. Right LE pain appears consistent with piriformis [...] symptoms in 4 weeks. PLAN: Progress core/hip strength, continue manual therapy to address joint and soft tissue restrictions documented in this encounter Plan of Treatment Upcoming Encounters Date Type Specialty Care Team Description 12/17/2021 Appointment Physical Therapy Simon Davis, PT [address] [place], [place] [phone] (Wo rk) documented as of this encounter Visit Diagnoses Diagnosis Right hip pain - Primary Pain in joint, pelvic region and thigh Neck pain Cervicalgia documented in this encounter Care Teams Writing Center Director Relationship Specialty Start Date End Date Non Pn, Clinician, PCP - General 04/23/13 [place] [address] documented as of this encounter
--- OUTSIDE RECORDS SUMMARY | 2021-12-03 11:17 | XMS_ITS | Encounter Summary ---
:1955 Author Organization [facility] Address [address], [place] [address] Care Team Providers Name Role Phone Non Pn, Clinician MD Primary Care Provider Unavailable Reason for Visit Reason Comments Follow-up, NOS Encounter Details Date Type Department Care Team Description 02/10/2018 Office Visit [facility] [address] incontinence Urology DENIA (Primary Dx) [address] [facility] [address] [facility] [place] [address] [phone] Social History Tobacco Use Types Packs/Day Years Used Date Smoking Tobacco: Never Alcohol Use Standard Drinks/Week Comments No 0 (1 standard drink = 0.6 oz pure alcoho l) Sex Assigned at Date Recorded Not on file documented as of this encounter Progress Notes Missy Lopez MBBS - 02/10/2018 12:00 PM CST NAME: LUDA GARCIA MR#: [id number] CSN: [id number] AUTHENTICATING CLINICIAN: CAMILA Bowden CONFIRM #: [id number] LOC: 417 CLINIC PROGRESS NOTE DATE OF VISIT: 02/10/2018 : 1955 REASON FOR VISIT: Mixed urinary incontinence. CLINICAL DATA: Luda follows up today for urinary incontinence. She has had leaking when she coughs, sneezes, lifts, and bends. Sometimes even when she is unaware. She did have urethral hypermobility on exam. She didhave urethral mobility. Because of the variable nature incontinence, I got urodynamics. I went over the urodynamics today with Luda, and it is very interesting, she has actually an excellent bladder capacity. She has some mild stress incontinence. No bladder instability, at all. I did doa trial of Myrbetriq on her. It really just made no real difference. However, at least everything does look well. At this point, I talked to her about potentially doing a sling. That would be the only thing I couldthink of that might help. However, she does not find it so bothersome right now that she really wantto do anything about it. Therefore, at this point, we are just going to hold off doing anything for now. If she changes her mind and would like to do a sling in the future, she can let me know. I did give her literature about a sling today. Luda and I had a good discussion. 15 minutes was spent with her, with the entire time in [id number] counseling. She will let me knowif she wants to proceed with a sling at any point. ZENIAK:MATHEUS C: CONFIRM #: [id number] LFISH HARVESTER documented in this encounter Plan of Treatment Upcoming Encounters Date Type Specialty Care Team Description 12/17/2021 Appointment Physical Therapy Simon Davis, PT [address] [place], [place] [phone] (Wo rk) documented as of this encounter Visit Diagnoses Diagnosis Stress incontinence - Primary Female stress incontinence documented in this encounter Care Teams Management Internship Relationship Specialty Start Date End Date Non Pn, Clinician, PCP - General 04/23/13 [place] [address] documented as of this encounter
--- OUTSIDE RECORDS SUMMARY | 2021-12-03 11:17 | XMS_ITS | Encounter Summary ---
:1955 Author Organization [facility] Address [address], [place] [address] Care Team Providers Name Role Phone Non Pn, Clinician MD Primary Care Provider Unavailable Reason for Visit Reason Comments Procedure Encounter Details Date Type Department Care Team Description 01/31/2018 Procedure Visit [facility] [address] [place], [place] [address] Social History Tobacco Use Types Packs/Day Years Used Date Smoking Tobacco: Never Alcohol Use Standard Drinks/Week Comments No 0 (1 standard drink = 0.6 oz pure alcoho l) Sex Assigned at Date Recorded Not on file documented as of this encounter Progress Notes Amy Call RN - 01/31/2018 10:00 AM CST Urodynamics performed patient will follow up with Dr. Lopez next week. Agnieszka Romero PA-C - 01/31/2018 10:00 AM CST PREPROCEDURE DIAGNOSES: 1. Mixed stress and urge urinary incontinence. 2. Urethral hypermobility. 3. Urinary urgency. POSTPROCEDURE DIAGNOSES: 1. Large bladder capacity; 885 mL. 2. Excellent bladder compliance; baseline filling Pdet was essentially zero. 3. No obvious detrusor instability observed during filling (most pronounced on the prolonged study print out). 4. No stress leak during today's study at Pabd 180 cm H2O at 840 mL. 5. Delayed sensation of bladder filling; first sensation 62 mL, first desire 184 mL, strong desire 589 mL. 6. Successful bladder emptying; pre-test PVR 50 mL, post-test final PVR 0 mL. PROCEDURE: 1. Uroflowmetry. 2. Sterile urethral catheterization for measurement of postvoid residual urine volume. 3. Complex filling cystometrogram with measurement of bladder and rectal pressures. 4. Complex voiding cystometrogram with measurement of bladder and rectal pressures. 5. Electromyography of the pelvic floor during urodynamics. 6. Interpretation of urodynamics. INDICATIONS FOR PROCEDURE: Ms. Gloria Bonilla is a pleasant 62 y.o. female with c/o mixed stress and urge urinary incontinence. exam revealed 50-60 degrees of urethral mobility. Cystoscopy was performed and was unremarkable. Urodynamic assessment is planned prior to further management planning tobetter characterize the patient's voiding dysfunction. DESCRIPTION OF PROCEDURE: Risks, benefits, and alternatives to urodynamics were discussed with the patient and she wished to proceed. Urodynamics are planned to better assess the primary etiology for Ms. Bonilla's urologic dysfunction. The patient is not maintained on anticholinergic bladder medication. After verbal consent was obtained, the patient was taken to the procedure room where uroflowmetrywas performed. UROFLOWMETRY: Voided volume: 145 mL. Maximum flow rate: 6.8 mL/sec. Average flow rate: 2.6 mL/sec. Postvoid residual by catheter: 50 mL. Character of the curve: Blunted, intermittent. Pretest urine dipstick was entirely within normal limits. Next a 7F double-lumen urodynamics catheter was inserted into the bladder. A 7F rectal manometry catheter was placed in the rectum. EMG pads were placed on either side of the anal verge. The bladder was filled with NS at 50 mL/minute and serial pressures were recorded. With coughing there was an appropriate rise in vesical and abdominal pressures with no change in detrusor pressure, confirming good study catheter placement. DURING THE FILLING PHASE: First Sensation: 62 mL. First Desire: 184 mL. Strong Desire: 589 mL. Maximum Capacity: 885 mL. Uninhibited detrusor contractions: No clear detrusor instability observed during filling. Compliance: Excellent, baseline Pdet was essentially zero. Continence: No stress leak at Pabd 180 cm H2O at a volume of 840 mL. EMG: Grossly concordant during filling. DURING THE VOIDING PHASE: Detrusor Contraction: No clear terminal detrusor function although significant straining (Pabd >180 cm H2O) caused vesical catheter dislodgement. The patient was able to voi 85 mL. Voided volume: 85 mL. Maximum flow rate: ~8 mL/sec. Average flow rate: <1 mL/sec. Postvoid Residual: ~800 mL; patient promptly and successfully emptied in the private restroom once study catheters were removed. Final PVR 0 mL. Detrusor sphincter dyssynergia: No clear dyssynergia. ICS nomogram: Unobstructed. ASSESSMENT/PLAN: Ms. Gloria Bonilla is a pleasant 62 y.o. female with c/o mixed stress and urge urinary leakage who demonstrated the following findings today on urodynamic evaluation: 1. Large bladder capacity; 885 mL. 2. Excellent bladder compliance; baseline filling Pdet was essentially zero. 3. No obvious detrusor instability observed during filling (most pronounced on the prolonged study print out). 4. No stress leak during today's study at Pabd 180 cm H2O at 840 mL. 5. Delayed sensation of bladder filling; first sensation 62 mL, first desire 184 mL, strong desire 589 mL. 6. Successful bladder emptying; pre-test PVR 50 mL, post-test final PVR 0 mL. - A single nitrofurantoin 100 mg capsule was provided for UTI prophylaxis. - Consider timed voiding if frequency isn't an issue, I'm curious if the stress leakage is occurringwhen her bladder volumes are near 700-800 mL? - Consider trial of Poise Impressa or pessary prior to surgery to ensure this stops her leakage given that we couldn't replicate when/why her leakage is occurring during today's study. - F/U with Dr. Lopez in the near future as planned. Sincerely, Nay Pereyra PA-C Department of Urologic Surgery URCING ADVISOR documented in this encounter Plan of Treatment Upcoming Encounters Date Type Specialty Care Team Description 12/17/2021 Appointment Physical Therapy Simon Davis, PT [address] [place], [place] [phone] (Wo rk) documented as of this encounter Procedures Procedure Name Priority Date/Time Associated Diagnosis Comme nts URO COMPLEX Routine 02/08/2018 3:04 Urinary incontinence, CYSTOMETROGRAM VOIDING PM RESOURCING ADVISOR unspecifi ed type PRESSURE STUDY Mixed stress and urge urinary incontin ence Urethral hypermobility URO VOIDING PRESS Routine 02/08/2018 3:04 Urinary incontinence , STUDY INTRA-ABDOMINAL PM RESOURCING ADVISOR unspecifie d type Mixed stress and urge urinary incontin ence Urethral hypermobility URO UROFLOW CLINIC Routine 02/08/2018 3:04 Urinary incontinenc e, PM RESOURCING ADVISOR unspecified type Mixed stress and urge urinary incontin ence Urethral hypermobility URO PATCH EMG Routine 02/08/2018 3:04 Urinary incontinence, PM RESOURCING ADVISOR unspecified type Mixed stress and urge urinary incontin ence Urethral hypermobility URO COMPLEX Routine 02/08/2018 3:04 Urinary incontinence, CYSTOMETROGRAM PM RESOURCING ADVISOR unspecified type Mixed stress and urge urinary incontin ence Urethral hypermobility AUTOMATED URINALYSIS Routine 01/31/2018 12:21 Res ults for this DIPSTICK POCT PM RESOURCING ADVISOR procedure are in the results section. documented in this encounter Results Urinalysis Dipstick (01/31/2018 12:21 PM RESOURCING ADVISOR) [facility] gist Method Time Signature Urine Glucose Negative mg/dL PN SOFT (POC) Urine Bilirubin Negative PN SOFT (POC) Urine Ketone Negative mg/dL PN SOFT (POC) Urine Specific 1.020 PN SOFT [place] (POC) Urine Occult Negative PN SOFT Blood (POC) Urine PH (POC) 5.5 PN SOFT Urine Protein Negative mg/dL PN SOFT (POC) Urine Negative mg/dL PN SOFT Urobilinogen (POC) Urine Nitrite Negative PN SOFT (POC) Urine Leukocytes Negative PN SOFT (POC) Urine Color (POC) Yellow PN SOFT Urine Appearance Clear PN SOFT (POC) Comment: Performed at [address] [place] [place] [address] Strip Lot Number (POC) [id number] PN SOFT Specimen Anatomical Collection Method Collection Time Receive d Time (Source) Location / / Volume Laterality 01/31/2018 12:21 01/31/2018 PM RESOURCING ADVISOR 11:06 AM RESOURCING ADVISOR Interface Provider LAB_1 Performing Organization Address City/State/ZIP Code Phon e Number PN SOFT [address] [place] [address] documented in this encounter Visit Diagnoses Diagnosis Mixed stress and urge urinary incontinen ce - Primary Mixed incontinence urge and stress (male )(female) Urinary incontinence, unspecified type Urethral hypermobility documented in this encounter Administered Medications Inactive Administered Medications - up to 3 most recent administrations Medication Order MAR Action Action Date Dose Rate Site nitrofurantoin monohydrate Given 01/31/2018 11:04 AM RESOURCING ADVISOR 100 mg macrocrystal (MACROBID) capsule 100 mg 100 mg, Oral, ONCE, On Tue01/31/18 at 1115, For 1 dose, Take with food, Indications: Postoperative Infection documented in this encounter Care Teams Administrative Support Specialist Relationship Specialty Start Date End Date Non Pn, Clinician, PCP - General 04/23/13 [place] [address] documented as of this encounter
--- OUTSIDE RECORDS SUMMARY | 2021-12-03 11:17 | XMS_ITS | Encounter Summary ---
:1955 Author Organization [facility] Address [address] [place] [address] Care Team Providers Name Role Phone Non Pn, Clinician MD Primary Care Provider Unavailable Reason for Visit Reason Comments Knee Problem Encounter Details Date Type Department Care Team Description 09/20/2017 Office Visit [place] [facility] Simon Davis, Sta tus post total Therapy PT left knee replacement [address] [place] [address] [place], [place] [phone] (Wo rk) Social History Tobacco Use Types Packs/Day Years Used Date Smoking Tobacco: Never Alcohol Use Standard Drinks/Week Comments No 0 (1 standard drink = 0.6 oz pure alcoho l) Sex Assigned at Date Recorded Not on file documented as of this encounter Progress Notes Simon Davis, PT - 09/20/2017 11:15 AM CDT Encounter date: 09/20/2017 Pt : 1955 [address] [facility] Progress Note Visit Number: 11 Initial Certification Period: 08/19/2017 to 10/18/17 Referring Provider: Russell Maria Surgical Procedure: Left total knee arthroplasty Surgical Date: 08/15/17 Visit Diagnosis: 1. Status post total left knee replacement Precautions: WBAT SUBJECTIVE: Patient has no new complaints regarding the left knee. She has minimal to no pain in the surgical leg. Still has some difficulty with descending stairs normally. OBJECTIVE Current Objective Findings: None taken Treatment/Education Today: Therapeutic exercise x 28 minutes: - verbally reviewed HEP - recumbent bike x 10 minutes, seat 11, level 4.0, full revolutions - unilateral leg press 2 plates x 10 reps x 2 sets - 8 lateral step-downs x 10 reps x 1 set, very challenging - mini single leg squat with counter-top support x 10 reps - unilateral heel raises x 10 reps Therapeutic activities x 10 minutes: Patient was instructed in and performed floor transfer using bed for UE support Timed Code Treatment Minutes: 38 Total Treatment Minutes: 38 Current Home Exercise Program List: Access Code: [email or web address] Standing Single Leg Stance with Counter Support - 2 reps - 2 sets - 45-60 seconds hold - 1x daily - 3-4x weekly Squat - 10 reps - 2 sets - 1x daily - 3-4x weekly Single Leg Squat with Counter Support - 10 reps - 2 sets - 1x daily - 3-4x weekly Lateral Step Down - 10 reps - 2 sets - 1x daily - 3x weekly Patient Education Standing to Lying on the Floor with Bed Support ASSESSMENT/PROGRESS TOWARD GOALS: Patient's ROM is excellent and gait pattern is normal. Strength is progressing as expected; fatigueswith unilateral and eccentric quad strength. Floor transfer was challenging but patient was able to do this independently using UE's for assistance. Returns to work on 09/26/17. 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 Returning 09/26/17 Plan: Progress per post-op protocol documented in this encounter Plan of Treatment Upcoming Encounters Date Type Specialty Care Team Description 12/17/2021 Appointment Physical Therapy Simon Davis, PT [address] [place], [place] [phone] (Wo rk) documented as of this encounter Visit Diagnoses Diagnosis Status post total left knee replacement - Primary documented in this encounter Care Teams Loading Machine Operator Relationship Specialty Start Date End Date Non Pn, Clinician, PCP - General 04/23/13 [place] [address] documented as of this encounter
--- OUTSIDE RECORDS SUMMARY | 2021-12-03 11:17 | XMS_ITS | Encounter Summary ---
:1955 Author Organization [facility] Address [address] [place] [address] Care Team Providers Name Role Phone Non Pn, Clinician MD Primary Care Provider Unavailable Reason for Visit Reason Comments Hip Problem Encounter Details Date Type Department Care Team Description 12/31/2019 Office Visit [place] [facility] Simon Davis, Rig ht hip pain (Primary Dx); Therapy PT Neck pain [address] [place] [address] [place], [place] [phone] (Wo rk) Social History Tobacco Use Types Packs/Day Years Used Date Smoking Tobacco: Never Alcohol Use Standard Drinks/Week Comments No 0 (1 standard drink = 0.6 oz pure alcoho l) Sex Assigned at Date Recorded Not on file documented as of this encounter Progress Notes Simon Davis, PT - 12/31/2019 1:45 PM CDT [facility] Progress Note Visit Number: 3 Initial Certification Period: 11/30/2019 to 01/29/20 Referring Provider: Russell Maria Visit Diagnosis: 1. Right hip pain 2. Neck pain Precautions: None SUBJECTIVE: Gloria states that her neck was doing really good until se moved it too fast and tweaked it last week, but her main concern is the right leg. It aches from the hip/buttock to the lateral knee. Most painful motion is picking that leg up and rotating it to dress her lower extremities. Getting in/out of the car isn't a problem. She used to be able to walk it off but now she's limping all of the time. Hasbeen very busy at home the past two weeks so her compliance with physical therapy hasn't been the best. Wonders if this leg pain could be related to her R knee at all; symptoms originally started aftergetting R knee injection. OBJECTIVE Current Objective Findings: Right Hip ROM: Flexion: WNL ER: pain reproduction at end-range IR: pain reproduction JULIAN: pain reproduction Treatment/Education Today: Therapeutic exercise x 16 minutes: - verbally reviewed HEP and updated for home - objective measures - hook-lying lumbar rotation stretch - supine piriformis stretch - supine sciatic nerve glide x 10 reps - bridge x 10 reps Manual therapy x 24 minutes: - grade III lateral and inferior glides R hip - MFR R pectineus - MFR/STM R piriformis and gluteus medius Timed Code Treatment Minutes: 40 Total Treatment Minutes: 40 Current Home Exercise Program List: Access Code: [email or web address] Supine Lower Trunk Rotation - 2 reps [...] manual therapy well. Improved pain with ER and IR following hip joint mobilizations. Fatigue noted with bridging exercise but no increased pain. Pulling noted with all stretches. Right LE pain appears consistent with piriformis [...] 12/17/2021 Appointment Physical Therapy Simon Davis, PT [address] [place], [place] [phone] (Wo rk) documented as of this encounter Visit Diagnoses Diagnosis Right hip pain - Primary Pain in joint, pelvic region and thigh Neck pain Cervicalgia documented in this encounter Care Teams Transport Coordinator Relationship Specialty Start Date End Date Non Pn, Clinician, PCP - General 04/23/13 [place] [address] documented as of this encounter
--- OUTSIDE RECORDS SUMMARY | 2021-12-03 11:17 | XMS_ITS | Encounter Summary ---
:1955 Author Organization [facility] Address [address] [place] [address] Care Team Providers Name Role Phone Non Pn, Clinician MD Primary Care Provider Unavailable Reason for Visit Reason Comments Hip Problem Encounter Details Date Type Department Care Team Description 12/07/2019 Office Visit [place] [facility] Simon Davis, Rig ht hip pain (Primary Dx); Therapy PT Neck pain [address] [place] [address] [place], [place] [phone] (Wo rk) Social History Tobacco Use Types Packs/Day Years Used Date Smoking Tobacco: Never Alcohol Use Standard Drinks/Week Comments No 0 (1 standard drink = 0.6 oz pure alcoho l) Sex Assigned at Date Recorded Not on file documented as of this encounter Progress Notes Simon Davis, PT - 12/07/2019 1:00 PM CDT [facility] Progress Note Visit Number: 2 Initial Certification Period: 11/30/2019 to 01/29/20 Referring Provider: Russell Maria Visit Diagnosis: 1. Right hip pain 2. Neck pain Precautions: None SUBJECTIVE: Gloria states that her home exercises are generally going well. Continues to have R LE pain and numbness in the R UE upon waking up in the morning. No new symptoms to report. OBJECTIVE Current Objective Findings: Right cervical rotation AROM: 70 degrees; full pain-free ROM following thoracic mobilizations Treatment/Education Today: Therapeutic exercise x 15 minutes: - verbally reviewed HEP - bridge x 10 reps - clamshells x 10 reps - reverse clamshells attempted but reproduced pain - prone ER/IR x 10 reps - median nerve flossing by PT Manual therapy x 25 minutes: - grade III lateral glides R upper and lower cervical spine - MFR/STM R SCM, scalenes, levator - grade III-IV PA's T2-T7 - MFR/STM R quadratus lumborum - STM R IT Band using roller stick Timed Code Treatment Minutes: 40 Total Treatment Minutes: 40 Current Home Exercise Program List: Access Code: [email or web address] Supine Lower Trunk Rotation - 2 reps [...] weekly Supine Bridge - 10 reps - 2x daily - 7x weekly Clamshell - 10 reps - 2x daily - 7x weekly ASSESSMENT/PROGRESS TOWARD GOALS: Patient tolerates manual therapy well. Mild fatigue noted with clamshell and bridge exercise; pain reproduction with reverse clamshell. Improved cervical rotation to full range following manual therapy. Functional Goals/Outcomes: HEP/Independent Management: [...] 12/17/2021 Appointment Physical Therapy Simon Davis, PT [address] [place], [place] [phone] (Wo rk) documented as of this encounter Visit Diagnoses Diagnosis Right hip pain - Primary Pain in joint, pelvic region and thigh Neck pain Cervicalgia documented in this encounter Care Teams Metal Tile Setter Relationship Specialty Start Date End Date Non Pn, Clinician, PCP - General 04/23/13 [place] [address] documented as of this encounter
--- OUTSIDE RECORDS SUMMARY | 2021-12-03 11:17 | XMS_ITS | Encounter Summary ---
:1955 Author Organization [facility] Address [address] [place] [address] Care Team Providers Name Role Phone Non Pn, Clinician MD Primary Care Provider Unavailable Encounter Details Date Type Department Care Team Description 09/23/2017 Notes/Orders [place] Lyndon Carver ea, PT Therapy [address] [place] [address] [place] [address] [phone] (Wo rk) Social History Tobacco Use Types Packs/Day Years Used Date Smoking Tobacco: Never Alcohol Use Standard Drinks/Week Comments No 0 (1 standard drink = 0.6 oz pure alcoho l) Sex Assigned at Date Recorded Not on file documented as of this encounter Progress Notes Simon Davis, PT - 09/23/2017 11:59 PM CDT Encounter Date: 09/23/2017 Pt : 1955 [address] Discharge Summary Patient was seen for therapy from 08/19/17 through 09/23/17. Patient was compliant with attendance and therapy recommendations. PT - Discharge Total Visits: 12 Reason for discharge: Therapy goals met, or therapist expects patient to meet goals through home program. Primary Therapist: Discharging therapist Outcome measures at discharge: No outcome scores collected. Attainment of goals: The following is a review of the therapy goals: HEP/Independent Management: Demonstrate independence with HEP and self- management following each treatment session. - MET, ongoing ADL's: Perform sit to stand transfer using involved lower extremity in 2??weeks. - MET ADL's: Dress lower extremities with ease in 2-4??weeks. - MET Driving: Drive with ease and safety in 4-6??weeks. - MET Ambulation: Ambulate with normal gait pattern with minimal to no symptoms/limp in 4-6??weeks. - MET Ambulation: Ambulate up and down incline using least restrictive assistive device to get to her boatin 4-6 weeks. - MET Ascend/descend stairs independently with reciprocal pattern with ease??in 6??weeks. 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 Returning 09/26/17 Discharge recommendations: Patient will continue to work independently with home program/self management strategies. Patient to return to therapy if symptoms recur. documented in this encounter Plan of Treatment Upcoming Encounters Date Type Specialty Care Team Description 12/17/2021 Appointment Physical Therapy Simon Davis, PT [address] [place], [place] [phone] (Wo rk) documented as of this encounter Visit Diagnoses Not on filedocumented in this encounter Care Teams Napper Grinder Relationship Specialty Start Date End Date Non Pn, Clinician, PCP - General 04/23/13 [place] [address] documented as of this encounter
--- OUTSIDE RECORDS SUMMARY | 2021-12-03 11:17 | XMS_ITS | Encounter Summary ---
:1955 Author Organization [facility] Address [address] [place] [address] Care Team Providers Name Role Phone Non Pn, Clinician MD Primary Care Provider Unavailable Reason for Visit Reason Comments Knee Problem Encounter Details Date Type Department Care Team Description 12/30/2017 Initial Consult [place] [facility] Simon Davis, Acute pain of left Therapy PT knee (Primary Dx) [address] [facility] [place] [address] [place], [place] [phone] Social History Tobacco Use Types Packs/Day Years Used Date Smoking Tobacco: Never Alcohol Use Standard Drinks/Week Comments No 0 (1 standard drink = 0.6 oz pure alcoho l) Sex Assigned at Date Recorded Not on file documented as of this encounter Progress Notes Simon Davis, PT - 12/30/2017 11:30 AM CDT Date of Service: 12/30/2017 Pt : 1955 [address] [facility] Knee Evaluation/Plan of Care Initial Certification Period: 12/30/2017 to 02/13/18 Referring Provider: Russell Maria Visit Diagnosis: 1. Acute pain of left knee Precautions: Left TKA 08/15/17 Orders: Evaluate & treat Onset/Referral Date: onset 3-4 weeks SUBJECTIVE Reason for Visit: Patient known to me from PT earlier this year for left TKA presents with left kneepain. Started after her physical a few weeks ago when the doctor moved her leg around to check something, she's not even sure what. Recalls a pretty sharp pain happening along the medial knee and it's been there ever since. Pain is localized to the knee, does not radiate. Hurts with weightbearing kneeflexion such as squatting or stairs, sitting and crossing the left leg onto the right, and is now causing her to limp. Patient Therapy Goals: Resume previous level of activity symptom free. Past Medical History: Past medical history, medication, and allergies were reviewed in the electronic medical record. History is unremarkable. 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 Patient History: Low Complexity: No personal factors or comorbidities that impact plan of care OBJECTIVE Observation: WNL bilaterally Gait Exam: Antalgic Edema: Not measured ROM: AROM Left Knee: 0-120 degrees Strength: Bilateral normal Joint Mobility: Left: Patellar WNL Tibiofemoral WNL Palpation: Left tender: Medial joint line, Pes anserinus, Patellar tendon Special Tests: Left: Valgus Stress for MCL: Negative Varus Stress for LCL: Negative Proprioception: not tested Functional Tests: Double leg squat: WNL, bothers R knee but not L knee Flexibility: Not tested Core Strength: Not tested PT Outcomes: PT - Musculoskeletal - Knee Knee Outcome Survey - ADL (0-100%, 100 being best): 37 Clinical Examination: Moderate Complexity: Addressed 3 elements from body structures and functions (see above), and/or functional limitations as noted below. Today's Intervention/Charges: Physical Therapy Evaluation was completed and the patient was educated on the condition, planned therapy intervention and expectations from treatment. Therapeutic exercise x 12 minutes: Patient was instructed in and performed: - quad sets 5 seconds x 10 reps - SLR x 10 reps - side-lying hip abduction x 10 reps - fat pad lift off tape technique using cover roll and leukotape Manual therapy x 6 minutes: - transverse cross friction massage medial coronary ligaments Timed Code Treatment Minutes: 18 Total Treatment Minutes: 36 Home Exercise Program: Access Code: [email or web address] Supine Quad Set - 10 reps - 2 sets - 5 hold - 2x daily - 5x weekly Supine Active Straight Leg Raise - 10 reps - 2 sets - 5 hold - 12x daily - 5x weekly Sidelying Hip Abduction - 10 reps - 2 sets - 5 hold - 2x daily - 5x weekly ASSESSMENT Therapist Impression/Summary: Left knee pain consistent with knee sprain/strain. Patient presents with localized knee tenderness, good ROM, minimal swelling. She will benefit from skilled physical therapy services to address limitations and return to prior level of functional mobility with decreased pain. PT Clinical Presentation: Low Complexity: Stable and Uncomplicated Clinical Decision Making: Low Complexity Recommendations/Equipment: No additional recommendations at this time Significant Impairments: Pain, Muscle tightness/decreased flexibility, Muscle weakness Functional Limitations: difficulty with household tasks, difficulty with gait and difficulty with stairs Goals/Functional Outcomes: HEP/Independent Management: Demonstrate independence with HEP and self- management following each treatment session ADL's: Sit and cross left leg without increased symptoms in 4 weeks. Ambulation: Ambulate with normal gait pattern with minimal to no symptoms/limp in 4 weeks. Barriers to Goal Achievement or Learning: none Prognosis: Good PLAN Planned Intervention/Education: Manual Therapy, Neuromuscular Re-education, Therapeutic Activities, Therapeutic Exercise Frequency: 1-2 x week Duration: 30-45 days Discharge Plan: Patient will be discharged from therapy when goals are achieved or patient plateaus in progress. Informed Consent: Patient and/or family in agreement with the care plan. Plan for Next Treatment: continue manual therapy and taping as needed, progress to weightbearing strength The grounds manager is completed by the therapist and has been sent to the out of network referring clinician for signature to certify medical necessity for the plan above. documented in this encounter Plan of Treatment Upcoming Encounters Date Type Specialty Care Team Description 12/17/2021 Appointment Physical Therapy Simon Davis, PT [address] [place], [place] [phone] (Wo rk) documented as of this encounter Visit Diagnoses Diagnosis Acute pain of left knee - Primary documented in this encounter Care Teams Tandem Mill Sticker Relationship Specialty Start Date End Date Non Pn, Clinician, PCP - General 04/23/13 [place] [address] documented as of this encounter
--- OUTSIDE RECORDS SUMMARY | 2021-12-03 11:17 | XMS_ITS | Encounter Summary ---
:1955 Author Organization [facility] Address [address] [place] [address] Care Team Providers Name Role Phone Non Pn, Clinician MD Primary Care Provider Unavailable Reason for Visit Reason Comments Knee Problem Encounter Details Date Type Department Care Team Description 01/09/2018 Office Visit [place] [facility] Simon Davis, Acu te pain of left Therapy PT knee (Primary Dx) [address] [place] [address] [place], [place] [phone] (Wo rk) Social History Tobacco Use Types Packs/Day Years Used Date Smoking Tobacco: Never Alcohol Use Standard Drinks/Week Comments No 0 (1 standard drink = 0.6 oz pure alcoho l) Sex Assigned at Date Recorded Not on file documented as of this encounter Progress Notes Simon Davis, PT - 01/09/2018 9:15 AM CDT Encounter date: 01/09/2018 Pt : 1955 [facility] Progress Note Visit Number: 3 Initial Certification Period: 12/30/2017 to 02/13/18 Referring Provider: Russell Maria Visit Diagnosis: 1. Acute pain of left knee Precautions: Left TKA 08/15/17 SUBJECTIVE: Gloria states that her knee seems about the same. Frustrated with stairs and it feels like a knife isgoing in her knee when she sits and crosses it (figure 4 position). She did go out for a long walk yesterday and the knee seemed okay other than she's waddling. Wants to review what she should be doingfor HEP. OBJECTIVE Current Objective Findings: Knee outcome: 34% Left Knee ROM: normal Squat: not painful Seated figure 4: pain reproduction Treatment/Education Today: Manual therapy x 12 minutes: - STM soft tissue near medial joint line - grade III-IV ER tibia on femur - grade III-IV posterior glides tibia on femur Therapeutic exercise x 10 minutes - reviewed HEP - quad sets 5 seconds x 10 reps - SLR x 10 reps - side-lying hip abduction x 10 reps - standing adductor stretch Iontophoresis x 5 minutes: Iontopatch Extra Strength: Iontophoresis treatment includes treatment education, set up, and discussion of risks precautions of topical medication application. Patient to wear the patch for 8 hours, resulting in a 120 mA-minute treatment. Patient was instructed on the inspection , wear and removal of the patch after 12 hour(s). Used dexamethasone sodium phosphate 4mg/ml. Patch placed left knee medial joint line. Timed Code Treatment Minutes: 27 Total Treatment Minutes: 27 Current Home Exercise Program List: Access Code: [email or web address] Supine Quad Set - 10 reps - 2 sets - 5 hold - 2x daily - 5x weekly Supine Active Straight Leg Raise - 10 reps - 2 sets - 5 hold - 12x daily - 5x weekly Sidelying Hip Abduction - 10 reps - 2 sets - 5 hold - 2x daily - 5x weekly Standing side lunge adductor stretch - 2 reps - 30 hold - 5x weekly ASSESSMENT/PROGRESS TOWARD GOALS: Patient continues to have significant medial knee pain near the joint line, appears to be soft tissue related as the the restriction is palpable and her knee ROM is excellent. Functional Goals/Outcomes: HEP/Independent Management: Demonstrate independence with [...] Simon Davis, PT [address] [place], [place] [phone] (Wo rk) documented as of this encounter Visit Diagnoses Diagnosis Acute pain of left knee - Primary documented in this encounter Care Teams Dry Cans Back Tender Relationship Specialty Start Date End Date Non Pn, Clinician, PCP - General 04/23/13 [place] [address] documented as of this encounter
--- OUTSIDE RECORDS SUMMARY | 2021-12-03 11:17 | XMS_ITS | Encounter Summary ---
:1955 Author Organization [facility] Address [address] [place] [address] Care Team Providers Name Role Phone Non Pn, Clinician MD Primary Care Provider Unavailable Reason for Visit Reason Comments Knee Problem Encounter Details Date Type Department Care Team Description 01/30/2018 Office Visit [place] [facility] Simon Davis, Acu te pain of left Therapy PT knee (Primary Dx) [address] [place] [address] [place], [place] [phone] (Wo rk) Social History Tobacco Use Types Packs/Day Years Used Date Smoking Tobacco: Never Alcohol Use Standard Drinks/Week Comments No 0 (1 standard drink = 0.6 oz pure alcoho l) Sex Assigned at Date Recorded Not on file documented as of this encounter Progress Notes Simon Davis, PT - 01/30/2018 10:45 AM CST Encounter date: 01/30/2018 Pt : 1955 [facility] Progress Note Visit Number: 4 Initial Certification Period: 12/30/2017 to 02/13/18 Referring Provider: Russell Maria Visit Diagnosis: 1. Acute pain of left knee Precautions: Left TKA 08/15/17 SUBJECTIVE: Gloria states that her strength is definitely better with going up stairs, and she was able to get upoff the ground with her grandkids without too much difficulty over the weekend. Going down stairs still feels a little weak. She only has medial knee pain with seated figure 4 motion. OBJECTIVE Current Objective Findings: Knee outcome: 71% Seated figure 4: pain reproduction, near end ROM before feeling the pain Treatment/Education Today: Manual therapy x 15 minutes: - STM Pes anserine using shark SMART tool - grade III-IV medial glides knee Therapeutic exercise x 15 minutes - reviewed HEP and updated for home - forward 8 step-ups bringing contralateral LE into 90-90 x 10 reps - 6 eccentric lateral step downs x 10 reps - 4 retro step-ups x 10 reps - mini lunges x 10 reps Timed Code Treatment Minutes: 30 Total Treatment Minutes: 30 Current Home Exercise Program List: Access Code: [email or web address] Single Leg Stance with Support - 2 [...] 1x daily - 7x weekly Lateral Step Down - 10 reps - 2 sets - 1x daily - 7x weekly ASSESSMENT/PROGRESS TOWARD GOALS: Patient demonstrates improved strength with weightbearing exercises; some weakness evident with eccentric quad control. Improved ROM with seated figure 4 before onset of medial knee pain. Significant improvement in knee outcome score since last session. Functional Goals/Outcomes: HEP/Independent Management: Demonstrate independence with HEP and self- management following each treatment session. - MET, ongoing ADL's: Sit and cross left leg without increased symptoms in 4 weeks. - PROGRESSING Ambulation: Ambulate with normal gait pattern with minimal to no symptoms/limp in 4 weeks. - PROGRESSING Plan: Progress weightbearing strength ENGINEER documented in this encounter Plan of Treatment Upcoming Encounters Date Type Specialty Care Team Description 12/17/2021 Appointment Physical Therapy Simon Davis, PT [address] [place], [place] [phone] (Wo rk) documented as of this encounter Visit Diagnoses Diagnosis Acute pain of left knee - Primary documented in this encounter Care Teams Steward/Stewardess Economy Class Relationship Specialty Start Date End Date Non Pn, Clinician, PCP - General 04/23/13 [place] [address] documented as of this encounter
--- OUTSIDE RECORDS SUMMARY | 2021-12-03 11:18 | XMS_ITS | Encounter Summary ---
:1955 [facility] Address [address] [address] Care Team Providers Name Role Phone Non Pn, Clinician MD Primary Care Provider Unavailable Encounter Details Date Type Department Care Team Description 11/23/2013 Imaging [facility] Knee pain [address] [place], [place] [address] Social History Tobacco Use Types Packs/Day Years Used Date Smoking Tobacco: Never Assessed Sex Assigned at Date Recorded Not on file documented as of this encounter Plan of Treatment Upcoming Encounters Date Type Specialty Care Team Description 12/17/2021 Appointment Physical Therapy Simon Davis, PT [address] [place], [place] [phone] (Wo rk) documented as of this encounter Procedures Procedure Name Priority Date/Time Associated Comments Diagnosis FL INJECTION Routine 11/23/2013 11:04 Knee pain Results for this TARSOMETATARSAL JOINT RT AM CDT pro cedure are in the results section. documented in this encounter Results FL Injection Tarsometatarsal Joint Rt (11/23/2013 11:04 AM CDT) Anatomical Region Laterality Modality Lower Extremity, Foot Other Specimen (Source) Anatomical Location Collection Method / Collectio n Time Received Time / Laterality Volume Narrative 11/23/2013 11:18 AM CDT FINDINGS: The procedure, goals, risks and benefits of the procedure were discussed with the patient, who gave full written and verbal consent to proceed. The location of the procedure was confirmed, the skin initialed, and pause for cause per formed. Using sterile technique, local anesthesi a and fluoroscopic guidance a 25 gauge needle was advanced into the right third TMT joint. Intraarticular location of the needle tip was confirmed with the inject ion of 0.2 mL of Omnipaque 180 which als o filled the second TMT joint. Subsequently, 40 mg o f Kenalog (40mg/mL), and 1 mL of 1% lidocaine was administered without complication. The patient rated their pain as a 8/10 p rior to the injection, and 2/10 immediately following the injection. Procedure Note Aaron Bergeron MD - 08/31/2015 FINDINGS: The procedure, goals, risks an d benefits of the procedure were discussed with the patient, who gave full written and verbal consent to proceed. The location of the procedure was confirmed, the skin initialed, and pause for cause performed. Using sterile technique, local anesthesi a and fluoroscopic guidance a 25 gauge needle was advanced into the right third TMT joint. Intraarticular location of the needle tip was confirmed with the injection of 0.2 mL of Omnipaque 180 which also filled the second TMT joint. Subsequently, 40 mg o f Kenalog (40mg/mL), and 1 mL of 1% lidocaine was administered without complication. The patient rated their pain as a 8/10 p rior to the injection, and 2/10 immediately following the injection. Arias GUADARRAMA documented in this encounter Visit Diagnoses Diagnosis Knee pain Pain in joint, lower leg documented in this encounter Care Teams Tractor Driver Relationship Specialty Start Date End Date Non Pn, Clinician, PCP - General 04/23/13 [place] [address] documented as of this encounter
--- OUTSIDE RECORDS SUMMARY | 2021-12-03 11:18 | XMS_ITS | Encounter Summary ---
:1955 Author Organization [facility] Address [address] [place] [address] Care Team Providers Name Role Phone Non Pn, Clinician MD Primary Care Provider Unavailable Reason for Visit Reason Comments Knee Problem Encounter Details Date Type Department Care Team Description 08/24/2017 Office Visit [place] [facility] Simon Davis, Sta tus post total Therapy PT left knee replacement [address] ([address]) [place] [address] [place], [place] [phone] (Wo rk) Social History Tobacco Use Types Packs/Day Years Used Date Smoking Tobacco: Never Alcohol Use Standard Drinks/Week Comments No 0 (1 standard drink = 0.6 oz pure alcoho l) Sex Assigned at Date Recorded Not on file documented as of this encounter Progress Notes Simon Davis, PT - 08/24/2017 11:30 AM CDT Encounter date: 08/24/2017 Pt : 1955 [facility] [facility] Progress Note Visit Number: 3 Initial Certification Period: 08/19/2017 to 10/18/17 Referring Provider: Russell Maria Surgical Procedure: Left total knee arthroplasty Surgical Date: 08/15/17 Visit Diagnosis: 1. Status post total left knee replacement Precautions: WBAT SUBJECTIVE: Patient notes some soreness around the thigh and in the medial hamstring but otherwise has no new complaints. She is using the cane at al times which feels good. Her is present for today's session. OBJECTIVE Current Objective Findings: None taken Treatment/Education Today: Therapeutic exercise x 30 minutes: - recumbent bike x 5 minutes, seat 11, level 1.0, full revolutions - AAROM supine knee flexion with theraball x 20 reps - SLR x 10 reps x 2 sets - side-lying hip adduction x 10 reps x 2 sets - side-lying hip abduction x 10 reps x 2 sets - prone hip extension x 10 reps x 2 sets - sit to stand form plinth x 10 reps x 2 sets Timed Code Treatment Minutes: 30 Total Treatment Minutes: 30 Current Home Exercise Program List: - hamstring sets - quad sets - SAQ - SLR - heel slides - AAROM seated knee flexion ASSESSMENT/PROGRESS TOWARD GOALS: Patient demonstrates excellent gait pattern with SEC and good knee ROM. No difficulty with SLR x 4 ways today. Functional Goals/Outcomes: HEP/Independent Management: Demonstrate independence with HEP and self- management following each treatment session. - MET, ongoing ADL's: Perform sit to stand transfer using involved lower extremity in 2 weeks. ADL's: Dress lower extremities with ease in 2-4 weeks. Driving: Drive with ease and safety in 4-6 weeks. Ambulation: Ambulate with normal gait pattern with minimal to no symptoms/limp in 4-6 weeks. Ambulation: Ambulate up and down incline using least restrictive assistive device to get to her boatin 4-6 weeks. Ascend/descend stairs independently with reciprocal pattern with ease in 6 weeks. 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 Plan: Progress per post-op protocol, update HEP documented in this encounter Plan of Treatment Upcoming Encounters Date Type Specialty Care Team Description 12/17/2021 Appointment Physical Therapy Simon Davis, PT [address] [place], [place] [phone] (Wo rk) documented as of this encounter Visit Diagnoses Diagnosis Status post total left knee replacement - Primary documented in this encounter Care Teams Oxygen Therapy Technician Relationship Specialty Start Date End Date Non Pn, Clinician, PCP - General 04/23/13 [place] [address] documented as of this encounter
--- OUTSIDE RECORDS SUMMARY | 2021-12-03 11:18 | XMS_ITS | Encounter Summary ---
:1955 Author Organization [facility] Address [address] [place] [address] Care Team Providers Name Role Phone Non Pn, Clinician MD Primary Care Provider Unavailable Reason for Visit Reason Comments Knee Problem Encounter Details Date Type Department Care Team Description 08/31/2017 Office Visit [place] [facility] Simon Davis, Sta tus post total Therapy PT left knee replacement [address] ([address] [place] [address] [place], [place] [phone] (Wo rk) Social History Tobacco Use Types Packs/Day Years Used Date Smoking Tobacco: Never Alcohol Use Standard Drinks/Week Comments No 0 (1 standard drink = 0.6 oz pure alcoho l) Sex Assigned at Date Recorded Not on file documented as of this encounter Progress Notes Simon Davis, PT - 08/31/2017 11:30 AM CDT Encounter date: 08/31/2017 Pt : 1955 [facility] Progress Note Visit Number: 6 Initial Certification Period: 08/19/2017 to 10/18/17 Referring Provider: Russell Maria Surgical Procedure: Left total knee arthroplasty Surgical Date: 08/15/17 Visit Diagnosis: 1. Status post total left knee replacement Precautions: WBAT SUBJECTIVE: Patient states that she did go back to the surgeon's office and they re-did the steri strips and looked at the incision because it was weeping so much. Left knee is still doing well. She has been dealing with a snapping sensation behind the right knee like a band that makes the R LE want to give outsometimes. OBJECTIVE Current Objective Findings: None taken Treatment/Education Today: Therapeutic exercise x 28 minutes: - recumbent bike x 8 minutes, seat 11, level 2.0, full revolutions - leg press 2 plates x 10 reps, 3 plates x 10 reps - forward 4 step-ups x 10 reps, 6 x 10 reps - lateral 4 step-ups x 10 reps, 6 x 10 reps - TKE with blue resistance band x 20 reps - bridge x 10 reps x 2 sets Manual therapy x 8 minutes: - grade IV inferior glides patella - grade III-IV posterior glides tibia on femur - seated knee traction with added knee flexion x 3 reps Timed Code Treatment Minutes: 36 Total Treatment Minutes: 36 Current Home Exercise Program List: - SLR - side-lying hip adduction - side-lying hip abduction - prone hip extension - standing hamstring cur - partial squats at counter - heel slides - AAROM seated knee flexion - towel prop knee extension hang ASSESSMENT/PROGRESS TOWARD GOALS: Patient's ROM and gait pattern and progressing very well. Instructed her in hamstring and gastroc stretch for the R LE to hopefully help with the band tightness and snapping sensation. Functional Goals/Outcomes: HEP/Independent Management: Demonstrate independence with [...] no symptoms/limp in 4-6 weeks. - PROGRESSING Ambulation: Ambulate up and down incline using least restrictive assistive device to get to her boatin 4-6 weeks. - MET Ascend/descend stairs independently with reciprocal pattern with ease in 6 weeks. 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 Plan: Progress per post-op protocol documented in this encounter Plan of Treatment Upcoming Encounters Date Type Specialty Care Team Description 12/17/2021 Appointment Physical Therapy Simon Davis, PT [address] [place], [place] [phone] (Wo rk) documented as of this encounter Visit Diagnoses Diagnosis Status post total left knee replacement - Primary documented in this encounter Care Teams Pointer Machine Operator Relationship Specialty Start Date End Date Non Pn, Clinician, PCP - General 04/23/13 [place] [address] documented as of this encounter
--- OUTSIDE RECORDS SUMMARY | 2021-12-03 11:18 | XMS_ITS | Encounter Summary ---
:1955 Author Organization [facility] Address [address] [place] [address] Care Team Providers Name Role Phone Non Pn, Clinician MD Primary Care Provider Unavailable Reason for Visit Reason Comments Physical Therapy Encounter Details Date Type Department Care Team Description 01/21/2014 Office Visit [facility] and Ed Rakesh Vilchis, PT Right shoulder pain (Primary Dx); Center, Physical [address] [place] [address] Stiffness of joints, not elsewhere class ified, multiple sites; Therapy [place], [place] Muscle weakness (generalized ); [address] [address] Left hip pain [address] [place], [place] [address] [phone] Social History Tobacco Use Types Packs/Day Years Used Date Smoking Tobacco: Never Assessed Sex Assigned at Date Recorded Not on file documented as of this encounter Progress Notes Rakesh Vilchis, PT - 01/21/2014 3:20 PM CST [facility] [place] [facility] Daily Note Visit Number: 6 Initial Certification Period: 12/17/2013 - 03/11/2014 Referring Provider: Arias Calle PA-C MD Diagnosis: left hip pain, right shoulder pain Orders: Evaluate & treat Precautions/Contraindications: none noted Date of Onset: 1 year ago for hip, 8 months ago for shoulder Standardized Functional Score: Hip Outcome Score: 32/68 = 47% History: Method of Injury: Patient reports long standing hip pain of roughly 1 year with unknown origin. She has had injections into both her foot and knees for various ailments, and thinks the pain has finallytraveled up to her hip. 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 She states, I just can't believe my hip doesn't hurt anymore. I never thought this day would come. Her shoulder is also pain free for much of the days but still gets really sore after work and she additionally can't sleep on her R side yet. She hasn't been great with her home exercises. She feels 80% better overall from when she started. OBJECTIVE: Today???s Findings: HIP: Strength: per therapeutic exercise listed below Palpation: basically non tender now at lateral hip mild tenderness remains at lateral > medial knee and anterior > posterior tissues Functional Tests: Double leg squat: no valgus and mild anterior loading ; increased w/single leg squat - much improved though Shoulder: Posture/Alignment: forward head, rounded shoulders and thoracic kyphosis increased ROM: flexion: 175 abduction: 175 ER: 100 ER at 90: 110 SLIR: 53 Biomechanical Analysis/Scapular rhythm: increased anterior tilt Flexibility: Pectoralis minor: reduced Infraspinatus/teres minor: reduced Palpation: tender at posterior capsule and anterior GH site - much improved again today TREATMENT TODAY: Therapeutic Exercise (CPT 93988) x 40 minutes: Reviewed/demo'd current HEP including: hip: side lying clam shells for glute strength x fatigue/30 with TB supine double leg bridges with TB x fatigue/30 reps double leg squats at railing with TB x fatigue/20 reps self soft tissue mobilization with foam roller throughout entire LE's Shoulder: side lying sleeper stretch for posterior capsule mobility, 3 x 30 sec - great performance and nearlyPRN now standing pectoral stretch in doorway, 3 x 30 sec - PRN now self thoracic extension with foam roller self soft tissue mobilization with foam roller pectoral stretch/wall angels with foam roller side lying ER with 1 lbs dumb currie x fatigue/15 reps - hasn't been performing added: side lying thoracic rotations x 20 reps Patient correctly performed all exercises following mild verbal, tactile, and visual cues regarding isolation of intended musculature and to keep exercises pain free, and displayed good understanding of exercise parameters and progression. ASSESSMENT: Patient just continues to improve in all aspects of her rehab from ROM, to strength, to pain and function. Gloria needs to stay active with her HEP for like 2-4 weeks before we can significantly cut back and likely talk discharge. PLAN: Progress HEP/therapeutic exercise as appropriate and able. Manual therapy and modalities for pain control as needed. EXPECTED FUNCTIONAL OUTCOMES/GOALS: HEP/Independent Management: Demonstrate independence with HEP and self- management following each treatment session ADL's: Resume previous sleep pattern without awakening due to symptoms in 6 weeks. Perform home management tasks with ease in 6 weeks. Perform sit to stand transfer using involved lower extremity in 4 weeks. Squat to roller picker items from floor with minimal/no symptoms in 8 weeks. Driving: Transition in and out of car with minimal/no symptoms in 4 weeks. Ambulation: Ambulate unlimited distances with minimal to no symptoms/limp in 12 weeks. Ascend/descend stairs independently with reciprocal pattern with minimal to no symptoms and improvedlower extremity alignment in 12 weeks. Work: Return to work without restrictions in 14 weeks. CHARGES: Therapeutic Exercise 40 minutes Total Treatment Time: 45 minutes Therapist: Rakesh Vilchis PT, DPT, OCS # [id number] ING PROJECT MANAGER documented in this encounter Plan of Treatment Upcoming Encounters Date Type Specialty Care Team Description 12/17/2021 Appointment Physical Therapy Simon Davis, PT [address] [place], [place] [address] (Wo rk) documented as of this encounter Visit Diagnoses Diagnosis Right shoulder pain - Primary Pain in joint, shoulder region Stiffness of joints, not elsewhere class ified, multiple sites Muscle weakness (generalized) Left hip pain Pain in joint, pelvic region and thigh documented in this encounter Care Teams Trucker Relationship Specialty Start Date End Date Non Pn, Clinician, PCP - General 04/23/13 [place] [address] documented as of this encounter
--- OUTSIDE RECORDS SUMMARY | 2021-12-03 11:18 | XMS_ITS | Encounter Summary ---
:1955 Author Organization [facility] Address [address] [place] [address] Care Team Providers Name Role Phone Non Pn, Clinician MD Primary Care Provider Unavailable Reason for Visit Reason Comments COUGH, COUGHING UP, PHLEGM Encounter Details Date Type Department Care Team Description 06/28/2016 Nurse Triage Careline Unknown, COUGH, COUGHING UP, [address] Physician PHLEGM [place], [place] [address] [phone] [place], [place] [id number] Social History Tobacco Use Types Packs/Day Years Used Date Smoking Tobacco: Never Alcohol Use Standard Drinks/Week Comments No 0 (1 standard drink = 0.6 oz pure alcoho l) Sex Assigned at Date Recorded Not on file documented as of this encounter Nursing Notes Lorena Chirinos RN - 06/28/2016 12:38 PM CDT Protocol: COUGH - ACUTE [id number] Affirmative: [1] Coughed up blood AND [2] > 1 tablespoon (15 ml) (Exception: blood-tinged sputum) Disposition of See Physician Within 4 Hours (Or PCP Triage) suggested. Lorena Chirinos RN - 06/28/2016 12:33 PM CDT Called pt Verified and full name. Yes Situation/Background (brief explanation of current symptoms/situation): started with sore throat andthen head Congestion and cough and been 3 seeks of illness Cough is productive , brown - red mucous in with green mucous for the last week or so Feels like coming from head and nose but perhaps some from chest No sob but sometimes with hear some wheezing with cough . Talking in complete sentences over the phone with ease at this time . No fever , not on blood thinners . Had pneumonia in January and did clear . Now ill 3 weeks . Reviewed with patient pertinent medical history(as it related to the call): Yes - polymyalgia rheumatica Reviewed with patient pertinent medications (as they relate to call): She states recently stopped her prednisone , methotrexate . Anastasiya Zurita - 06/28/2016 12:25 PM CDT Which care system or clinic is the patient normally seen at? Other (Clinic Name)None. Situation: Medical:ptstates she continues to have a phlegmy cough: Plan:The current callback time to speak with a nurse is 30 minutes. If your symptoms change or worsen, or if you have not received a call back in the stated timeframe, please call us back at [phone].. documented in this encounter Plan of Treatment Upcoming Encounters Date Type Specialty Care Team Description 12/17/2021 Appointment Physical Therapy Simon Davis, PT [address] [place], [place] [address] (Wo rk) documented as of this encounter Visit Diagnoses Not on filedocumented in this encounter Care Teams Surgery Nurse Relationship Specialty Start Date End Date Non Pn, Clinician, PCP - General 04/23/13 [place] [address] documented as of this encounter
--- OUTSIDE RECORDS SUMMARY | 2021-12-03 11:18 | XMS_ITS | Encounter Summary ---
:1955 Author Organization [facility] Address [address] [place] [address] Care Team Providers Name Role Phone Non Pn, Clinician MD Primary Care Provider Unavailable Reason for Visit Reason Comments Physical Therapy Encounter Details Date Type Department Care Team Description 01/07/2014 Office Visit [facility] PT and Ed Rakesh Vilchis, PT Right shoulder pain (Primary Dx); Center, Physical [address] [place] [address] Stiffness of joints, not elsewhere class ified, multiple sites; Therapy [place], [place] Muscle weakness (generalized ); [address] [address] Left hip pain [address] [place], [place] [address] [phone] Social History Tobacco Use Types Packs/Day Years Used Date Smoking Tobacco: Never Assessed Sex Assigned at Date Recorded Not on file documented as of this encounter Progress Notes Rakesh Vilchis, PT - 01/07/2014 1:45 PM CDT [facility] [place] Physical Therapy Daily Note Visit Number: 4 Initial Certification Period: 12/17/2013 - 03/11/2014 Referring [...] up to her hip. 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 She has done a better job with exercises as a whole, but still has some questions in their regard today. OBJECTIVE: Today???s Findings: Gait Observation/Inspection: mod to significantly knock kneed Strength: per therapeutic exercise listed below Palpation: tender throughout anterior knee and lateral hip/glute region - improved again though Functional Tests: Double leg squat: mod valgus and anterior loading ; increased w/single leg squat Shoulder: Posture/Alignment: forward head, rounded shoulders and thoracic kyphosis increased ROM: flexion: 175 abduction: 175 ER: 90 ER at 90: 90 SLIR: 44 Biomechanical Analysis/Scapular rhythm: increased anterior tilt Joint mobility: Scapulothoracic: reduced GH: rduced Thoracic spine: reudced Flexibility: Pectoralis minor: reduced Infraspinatus/teres minor: reduced Palpation: tender at posterior capsule and anterior GH site - much improved today TREATMENT TODAY: Therapeutic Exercise (CPT 59422) x 25 minutes: Reviewed/demo'd current HEP including: hip: side lying clam shells for glute strength x fatigue/30 - added TB side lying abduction for glute strength x fatigue/30 - progressed to bridges with TB self soft tissue mobilization with foam roller throughout entire LE's Shoulder: side lying sleeper stretch for posterior capsule mobility, 3 x 30 sec - hasn't been performing standing pectoral stretch in doorway, 3 x 30 sec - mod cues needed self thoracic extension with foam roller self soft tissue mobilization with foam roller pectoral stretch/wall angels with foam roller Patient correctly performed all exercises following mild verbal, tactile, and visual cues regarding isolation of intended musculature and to keep exercises pain free, and displayed good understanding of exercise parameters and progression. Neuro Re Education: 25 minutes Knees/Hip Instructed/Demo'd/Observed the following: double progressing to single leg squatting technique supported at railing and advancing to unsupported as able ascending/descending stairs - worked specifically on engagement of glutes and core and inhibition of anterior loading and dynamic valgus moment - again reviewed being an anthlete at all times with work/daily activities Shoulder: Educated/demo'd/observed the following: seated scap retraction sets x 10 reps seated cervical retraction sets x 10 reps driving positioning proper ergonomic set up both at work and home computer station various lifting/reaching movement patterns with daily activities - Worked specifically on engagement of lower trap and serratus anterior and inhibition of anterior scapular tilt, scapular protraction, and deltoid hike compensatory patterns. ASSESSMENT: Patient finally demonstrating improvements in functional movement patterns, strength, ROM, and most importantly pain today. She remains active with her HEP, but again cues were needed most of all with sleeper stretch and pectoral stretching in doorway. PLAN: Progress HEP/therapeutic exercise as appropriate and able. Manual therapy and modalities for pain control as needed. thoracic circles? side lying ER? EXPECTED FUNCTIONAL OUTCOMES/GOALS: HEP/Independent Management: Demonstrate independence with HEP and self- management following each treatment session ADL's: Resume previous sleep pattern without awakening due to symptoms in 6 weeks. Perform home management tasks with ease in 6 weeks. Perform sit to stand transfer using involved lower extremity in 4 weeks. Squat to olive picker items from floor with minimal/no symptoms [...] restrictions in 14 weeks. CHARGES: Therapeutic Exercise 25 minutes Neuromuscular Re Education 25 minutes Total Treatment Time: 50 minutes Therapist: Rakesh Vilchis PT, DPT, OCS # [id number] documented in this encounter Plan of Treatment Upcoming Encounters Date Type Specialty Care Team Description 12/17/2021 Appointment Physical Therapy Simon Davis, PT [address] [place], [place] [address] (Wo rk) documented as of this encounter Visit Diagnoses Diagnosis Right shoulder pain - Primary Pain in joint, shoulder region Stiffness of joints, not elsewhere class ified, multiple sites Muscle weakness (generalized) Left hip pain Pain in joint, pelvic region and thigh documented in this encounter Care Teams Manager Country Relationship Specialty Start Date End Date Non Pn, Clinician, PCP - General 04/23/13 [place] [address] documented as of this encounter
--- OUTSIDE RECORDS SUMMARY | 2021-12-03 11:18 | XMS_ITS ---
:1955 Author Care Team Providers Name Role Phone Abel Card Primary Care Provider Unavailable Allergies Code Code System Name Reaction Severity Status Onset 646622 RxNorm Demerol Nausea Severe Deactivated ? Percodan Nausea Severe Deactivated ? NKDA ? Medications Name Status Start Date Stop Date ? ? atorvastatin 20 mg tablet Active ? Not av ailable TAKE 1 TABLET BY MOUTH AT BEDTIME brimonidine 0.15 % eye drops Completed ? INSTILL 1 DROP BY OPHTHALMIC ROUTE FLAKITO Y INTO BOTH EYES 20 MINUTES BEFORE NIGHT DRIVING NEEDED codeine 10 mg-guaifenesin 100 mg/5 mL oral liquid Completed ? 06/10/2021 TAKE 5 TO 10 ML BY MOUTH EVERY 6 HOURS Complete Multi 50+ Active ? Not available cyclobenzaprine 10 mg tablet Active ? Not available TAKE 1/2 TO 1 TABLET BY MOUTH THREE TIMES DAILY NEEDED cyclosporine 0.05 % eye drops in a dropperette Active ? Not available INSTILL 1 DROP IN BOTH EYES EVERY 12 HOURS furosemide 40 mg tablet Active ? Not avai lable gatifloxacin 0.5 % eye drops Active ? Not available hydroxyzine pamoate 25 mg capsule Active ? Not available TAKE 1-2 CAPSULES BY MOUTH EVERY 4-6 HOURS NEEDED FOR PA IN/MUSCLE SPASMYS. ketorolac 0.5 % eye drops Active ? Not av ailable lorazepam 1 mg tablet Active ? Not availa ble TAKE 1 TABLET BY MOUTH AT BEDTIME NEEDED loteprednol etabonate 0.5 % eye drops,suspension Active ? Not available metformin 1,000 mg tablet Active ? Not av ailable TAKE 1 TABLET BY MOUTH DAILY moxifloxacin 0.5 % eye drops Completed ? ondansetron 4 mg disintegrating tablet Completed ? 06/10/2021 DISSOLVE 1 TABLET ON THE TONGUE EVERY 6 HOURS NEEDED ondansetron HCl 4 mg tablet Active ? Not available TAKE 1 TABLET BY MOUTH EVERY 6 HOURS NEEDED FOR NAUSEA. oxycodone 5 mg tablet Active ? Not availa ble TAKE 1 TABLET BY MOUTH EVERY 6 HOURS NEEDED FOR PAIN. phenazopyridine 200 mg tablet Active ? No t available prednisolone acetate 1 % eye drops,suspension Completed ? 06/10/2021 prednisone 20 mg tablet Active ? Not avai lable prednisone 5 mg tablet Active ? Not avail able PreserVision AREDS-2 Active ? Not availab le primidone 50 mg tablet Active ? Not avail able 1 tablet every day by oral route. prochlorperazine maleate 5 mg tablet Active ? Not available propranolol ER 120 mg capsule,24 hr,extended release Active ? Not available TAKE 1 CAPSULE BY MOUTH DAILY sulfamethoxazole 800 mg-trimethoprim 160 mg tablet Active ? Not available tizanidine 4 mg tablet Active ? Not avail able triamcinolone acetonide 0.1 % topical cream Active ? Not available APPLY 1 APPLICATION DIRECTED TOPICAL LY TO ABDOMEN TWICE DAILY FOR 2 WEEKS THEN NEEDED triamterene Completed ? 06/10/2021 triamterene 37.5 mg-hydrochlorothiazide 25 mg capsule Active ? Not available TAKE 1 CAPSULE BY MOUTH DAILY venlafaxine ER 150 mg capsule,extended release Active ? Not available venlafaxine ER 150 mg capsule,extended release 24 hr Active ? Not available TAKE 1 CAPSULE BY MOUTH DAILY. TAKE WITH 75 MG CAPLET. venlafaxine ER 75 mg capsule,extended release 24 hr Active ? Not available TAKE ONE CAPSULE BY MOUTH DAILY WITH 150MG Problems None recorded. Procedures Date Name Performed by ? 04/14/2021 Back Fusion Information not avai lable ? Repair of Knee Cartilage Information not available ? Arthroscopic Knee Operation Information not available Notes: *Surgery Date: 2005 *Notes: lef t; showed some arthritis ? Tooth Extraction Information not avai lable 06/10/2021 [facility] [address] [place] [address] (Work Place) Results Lab Results Date Name Specimen Result Interpretation Description Value Range Status Address ? 09/17/2021 Pap, IG + CERVIX ? Interpretation nilm ? [facility] HPV Diseas e (16+18+45) Detect ion (Lab): [address], [place] ? ? CERVIX ? Category: nil ? Final [facility] (Lab): [address], [place] ? ? CERVIX ? Adequacy: paer ? Final [facility] (Lab): [address], [place] ? ? CERVIX ? Clinician comment ? [facility] ICD10: D isease Detection (Lab): [address], [place] ? ? CERVIX ? Performed by: comment ? Final [facility] (Lab): [address], [place] ? ? CERVIX ? Note: comment ? Final [facility] (Lab): [address], [place] ? ? CERVIX ? Test comment ? Final Center [facility] r Methodology: Dise ase Detection (Lab): [address], [place] ? ? CERVIX ? 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 06/10/2021 Screening for Disorder; Abnormal Vaginal Bleeding Abel Card MD: [address] [place] [address], [address] [address], Ph. Social History Tobacco Smoking Status Never Smoker Notes: Tobacco *Status: Never *Note: 12/04/2018 - Vaccine List None recorded. Plan of Care Patient Instructions Return in 1 year for annual examination . Annual screening mammography recommended and the patient is due. Pap smear today with cotesting. Discussed bone density evaluation. Colonoscopy normal in 2016, repeat in 2026. Call for any concerns or issues. Return for physical examination in late June or early Jul, 2021. Observe for any additional or residual vaginal bleeding. Further measures to be determined. Call or return for any reason including pelvic p ain, recurrent vaginal bleeding, or any other gynecologic concerns. Reminders Provider Appointments None recorded. ? ? Lab None recorded. ? ? Referral None recorded. ? ? Procedures None recorded. ? ? Surgeries None recorded. ? ? Imaging None recorded. ? ? Vitals 09/17/2021 03:00PM G_ANNUAL EXAM Height Weight BMI Blood Pressure 5 ft 10 in 224.4 lbs 32.2 kg/m2 132/64 mm[Hg] 06/10/2021 02:30PM G_NEW PATIENT Height Weight BMI 5 ft 10 in 12/04/2018 Height Weight BMI Blood Pressure 5 ft 9.96 in 246.63 lbs 35.39 kg/m2 136/80 mm[Hg] 12/06/2016 Height Weight BMI Blood Pressure 5 ft 9.96 in 238 lbs 34.15 kg/m2 116/64 mm[Hg] 06/01/2010 Height Weight BMI Blood Pressure 5 ft 9.96 in 217 lbs 31.14 kg/m2 128/84 mm[Hg] 02/20/2010 Height Weight BMI Blood Pressure 5 ft 9.96 in 212 lbs 30.42 kg/m2 124/74 mm[Hg] 08/19/2008 Height Weight BMI Blood Pressure 5 ft 9.96 in 215 lbs 30.85 kg/m2 120/80 mm[Hg]
--- OUTSIDE RECORDS SUMMARY | 2021-12-03 11:18 | XMS_ITS | Encounter Summary ---
:1955 Author Organization [facility] [employer] Address [address] [place] [address] Care Team Providers Name Role Phone Non Pn, Clinician MD Primary Care Provider Unavailable Reason for Visit Reason Comments Physical Therapy Encounter Details Date Type Department Care Team Description 12/31/2013 Office Visit [facility] and Ed Rakesh Vilchis, PT Right shoulder pain (Primary Dx); Center, Physical [address] [place] [address] Stiffness of joints, not elsewhere class ified, multiple sites; Therapy [place], [place] Muscle weakness (generalized ); [address] [address] Left hip pain [address] [place], [place] [address] [phone] Social History Tobacco Use Types Packs/Day Years Used Date Smoking Tobacco: Never Assessed Sex Assigned at Date Recorded Not on file documented as of this encounter Progress Notes Rakesh Vilchis, PT - 12/31/2013 5:25 PM CDT [facility] [place] [facility] Daily Note Visit Number: 3 Initial Certification Period: 12/17/2013 - 03/11/2014 Referring [...] to her hip. 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 She reports she can have times without pain, but overall continues to have significant discomfort throughout the work day into both. She can't go up stairs basically ever without significant pain. The tape fell off her knee within the first few hours last visit, but did seem tohelp a bit at that time. She has remained good with some of the exercises as others have tapered off. OBJECTIVE: Today???s Findings: Gait Observation/Inspection: mod to significantly knock kneed ROM: actually quite good hip mobility B lumbar ROM additionally WNL Strength: per therapeutic exercise listed below Palpation: tender throughout anterior knee and lateral hip/glute region - improved though Functional Tests: Double leg squat: significant valgus and anterior loading ; increased w/single legsquat Shoulder: Posture/Alignment: forward head, rounded shoulders and thoracic kyphosis increased ROM: flexion: 170 abduction: 170 - high level of upper trap/deltoid hike as well at end range ER: 90 ER at 90: 90 SLIR: 30 Biomechanical Analysis/Scapular rhythm: increased anterior tilt Joint mobility: Scapulothoracic: reduced GH: rduced Thoracic spine: reudced Flexibility: Pectoralis minor: reduced Infraspinatus/teres minor: reduced Palpation: tender at posterior capsule and anterior GH site Shoulder Special Tests: + nino and neer Functional Tests: Hands behind head restricted. Hands behind back restricted. Hands on opposite shoulders restricted. TREATMENT TODAY: Therapeutic Exercise (CPT 06984) x 25 minutes: Reviewed/demo'd current HEP including: side lying clam shells for glute strength x fatigue/15 side lying abduction for glute strength x fatigue/15 self soft tissue mobilization with foam roller throughout entire LE's double leg squatting form x 20 reps Shoulder: side lying sleeper stretch for posterior capsule mobility, 3 x 30 sec - hasn't been performing standing pectoral stretch in doorway, 3 x 30 sec - hasn't been performing self thoracic extension with foam roller self soft tissue mobilization with foam roller pectoral stretch/wall angels with foam roller Patient correctly performed all exercises following mild verbal, tactile, and visual cues regarding isolation of intended musculature and to keep exercises pain free, and displayed good understanding of exercise parameters and progression. Neuro Re Education: 25 minutes Knees/Hip Performed Herron taping technique in form of medial patellar glide to improve lateral patellar tracking and patellar fat pad irritation. Patient reporting 70% improved pain with squat and step down from 4'' step following taping. Tape Left on with instructions of when/why to discontinue tape usage. Shoulder: Educated/demo'd/observed the following: seated scap retraction [...] and deltoid hike compensatory patterns. ASSESSMENT: Patient continues to have multifactoral complaints stemming from bilateral knee, L hip, and R shouldpain. This is her third PT visit for the last month or so, and she has remained active with (some) foam roller exercises, but struggled to do many of her others consistently. Gloria's pain continue to appear very musculoskeletal based in the form of PFPS, gluteal tendinosis/greater trochanteric bursitis, and RC tendinosis via anterior GH impingement. She remains a great candidate for skilled PT, but needs to understand per attempts at treating all three at this time her progress will continue to be slow. I remain very hesitant to add any further exercises just simply as she has only been okay at [facility] thus far. PLAN: Progress HEP/therapeutic exercise as appropriate and [...] lower extremity in 4 weeks. Squat to seed cone picker items from floor with minimal/no symptoms [...] Re Education 25 minutes Total Treatment Time: 60 minutes Therapist: Rakesh Vilchis PT, DPT, OCS # [id number] documented in this encounter Plan of Treatment Upcoming Encounters Date Type Specialty Care Team Description 12/17/2021 Appointment Physical Therapy Simon Davis, PT [address] [place], [place] [address] (Wo rk) documented as of this encounter Visit Diagnoses Diagnosis Right shoulder pain - Primary Pain in joint, shoulder region Stiffness of joints, not elsewhere class ified, multiple sites Muscle weakness (generalized) Left hip pain Pain in joint, pelvic region and thigh documented in this encounter Care Teams Program Instructor Relationship Specialty Start Date End Date Non Pn, Clinician, PCP - General 04/23/13 [place] [address] documented as of this encounter
--- OUTSIDE RECORDS SUMMARY | 2021-12-03 11:18 | XMS_ITS | Encounter Summary ---
:1955 Author Organization [employer] Address [address] [place] [address] Care Team Providers Name Role Phone Non Pn, Clinician MD Primary Care Provider Unavailable Reason for Visit Reason Comments Physical Therapy Encounter Details Date Type Department Care Team Description 12/17/2013 Office Visit [facility] and Ed Rakesh Vilchis PT Right shoulder pain (Primary Dx); Center, Physical [address] [place] [address] Stiffness of joints, not elsewhere class ified, multiple sites; Therapy [place], [place] Muscle weakness (generalized ); [address] [address] Left hip pain [place], [place] [address] [phone] Social History Tobacco Use Types Packs/Day Years Used Date Smoking Tobacco: Never Assessed Sex Assigned at Date Recorded Not on file documented as of this encounter Progress Notes Rakesh Vilchis, PT - 12/17/2013 1:24 PM CDT [facility] [place] [facility] Therapy Daily Note Visit Number: 2 Initial Certification Period: 12/17/2013 - 03/11/2014 Referring [...] up to her hip. 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 She has been very active with her HEP and feel her foam roller has helped a little bitalready, but can also be literally nauseating. She would like to focus today on her hip most of all. OBJECTIVE: Today???s Findings: Gait Observation/Inspection: mod to significantly knock kneed ROM: actually quite good hip mobility B lumbar ROM additionally WNL Strength: 4-/5 glutes, 4-/5 quads, 4/5 hamstrings Palpation: tender throughout anterior knee and lateral hip/glute region Functional Tests: Double leg squat: significant valgus and anterior loading ; increased w/single legsquat TREATMENT TODAY: Therapeutic Exercise (CPT 64797) x 25 minutes: Reviewed/demo'd current HEP including: side lying clam shells for glute strength side lying abduction for glute strength self soft tissue mobilization with foam roller throughout entire LE's double leg squatting form Shoulder: side lying sleeper stretch for posterior capsule mobility standing pectoral stretch in doorway self thoracic extension with foam roller self soft tissue mobilization with foam roller pectoral stretch/wall angels with foam roller Patient correctly performed all exercises following mild verbal, tactile, and visual cues regarding isolation of intended musculature and to keep exercises pain free, and displayed good understanding of exercise parameters and progression. Neuro Re Education: 15 minutes Instructed/Demo'd/Observed the following: double progressing to single leg squatting technique supported at railing and advancing to unsupported as able ascending/descending stairs arising/sitting in chair - worked specifically on engagement of glutes and core and inhibition of anterior loading and dynamic valgus moment ASSESSMENT: Patient demonstrating mild improvements in pain and function already this week and overall did a pretty good job with her HEP this past week. We did talk quite a bit today about alteration of movement patterns as she continues to load significantly into anterior knee when not directly cued. PLAN: Progress HEP/therapeutic exercise as appropriate and [...] lower extremity in 4 weeks. Squat to pick pack worker items from floor with minimal/no symptoms in [...] weeks. CHARGES: Therapeutic Exercise 25 minutes Neuromuscular 15 minutes Total Treatment Time: 45 minutes Therapist: Rakesh Vilchis PT, DPT, OCS # [id number] documented in this encounter Plan of Treatment Upcoming Encounters Date Type Specialty Care Team Description 12/17/2021 Appointment Physical Therapy Simon Davis, PT [address] [place], [place] [address] (Wo rk) documented as of this encounter Visit Diagnoses Diagnosis Right shoulder pain - Primary Pain in joint, shoulder region Stiffness of joints, not elsewhere class ified, multiple sites Muscle weakness (generalized) Left hip pain Pain in joint, pelvic region and thigh documented in this encounter Care Teams Production Aide Relationship Specialty Start Date End Date Non Pn, Clinician, PCP - General 04/23/13 [place] [address] documented as of this encounter
--- OUTSIDE RECORDS SUMMARY | 2021-12-03 11:18 | XMS_ITS | Encounter Summary ---
:1955 Author Organization [facility] Address [address], [place] [address] Care Team Providers Name Role Phone Non Pn, Clinician MD Primary Care Provider Unavailable Reason for Visit Reason Comments Questions Encounter Details Date Type Department Care Team Description 06/27/2013 Telephone [facility] Arias Calle PA-C Questions [address] [place] [address] [address] [place] [address] [place] [address] [phone] (Wo rk) Social History Tobacco Use Types Packs/Day Years Used Date Smoking Tobacco: Never Assessed Sex Assigned at Date Recorded Not on file documented as of this encounter Patient Instructions Patient InstructionsRayshawn Sosa - 06/27/2013 10:34 AM CDT documented in this encounter Nursing Notes Arias Calle PA-C - 06/27/2013 12:58 PM CDT patient's symptoms which have since worsened since her last visit I recommended a right foot MRI shewill follow up with me after the MRI. Rayshawn Sosa - 06/27/2013 10:35 AM CDT Patient would like to discuss getting an MRI on her foot. Please call [phone] to advise. documented in this encounter Plan of Treatment Upcoming Encounters Date Type Specialty Care Team Description 12/17/2021 Appointment Physical Therapy Simon Davis, PT [address] [place], [place] [address] (Wo rk) documented as of this encounter Visit Diagnoses Not on filedocumented in this encounter Care Teams Neon Sign Installer Relationship Specialty Start Date End Date Non Pn, Clinician, PCP - General 04/23/13 [place] [address] documented as of this encounter
--- OUTSIDE RECORDS SUMMARY | 2021-12-03 11:18 | XMS_ITS | Encounter Summary ---
:1955 Author Organization [facility] Address [address] [place] [address] Care Team Providers Name Role Phone Non Pn, Clinician MD Primary Care Provider Unavailable Reason for Visit Reason Comments Knee Problem Encounter Details Date Type Department Care Team Description 08/19/2017 Initial Consult [place] [facility] Simon Davis, Status post total Therapy PT left knee [address] ([address] Dx) [place] [address] [place], [place] [phone] Social History Tobacco Use Types Packs/Day Years Used Date Smoking Tobacco: Never Alcohol Use Standard Drinks/Week Comments No 0 (1 standard drink = 0.6 oz pure alcoho l) Sex Assigned at Date Recorded Not on file documented as of this encounter Progress Notes Simon Davis, PT - 08/19/2017 11:15 AM CDT Date of Service: 08/19/2017 Pt : 1955 [address] [facility] Post-operative Knee Evaluation/Plan of Care Initial Certification Period: 08/19/2017 to 10/18/17 Referring Provider: Russell Maria Surgical Procedure: Left total knee arthroplasty Surgical Date: 08/15/17 Visit Diagnosis: 1. Status post total left knee replacement Precautions: WBAT Orders: Evaluate & treat, Per protocol Onset/Referral Date: 08/15/17 SUBJECTIVE Reason for Visit: Patient presents to physical therapy with her , Maximo, 4 days s/p L TKA. Shestates that she's doing really well and her pain is controlled with medication. She is icing frequently and uses a 4 wheeled walker for ambulation. She eventually wants to be walking without assistive device, and a huge goal of hers is to walk up/down the hill in the backyard to their pontoon boat. Patient Therapy Goals: Resume previous level of activity symptom free. Past Medical History: Past medical history, medication, and allergies were reviewed in the electronic medical record. History is unremarkable. Patient has no past medical history on file. 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 Patient History: Low Complexity: No personal factors or comorbidities that impact plan of care OBJECTIVE Observation: Moderate swelling L knee, no increased redness or warmth Gait Exam: Antalgic, uses 4 wheeled walker Edema: Circumference: 49.0 cm ROM: AROM Left: 8-75 degrees in supine Strength: Quad set: Good SLR: Good, without extensor lag Well's DVT Clinical Decision Rule: Not Tested PT Outcomes: Knee outcome: patient did not complete form Clinical Examination: Moderate Complexity: Addressed 3 elements from body structures and functions (see above), and/or functional limitations as noted below. Today's Intervention/Charges: Physical Therapy Evaluation was completed and the patient was educated on the condition, planned therapy intervention and expectations from treatment. Therapeutic exercise x 20 minutes: - hamstring sets 5 seconds x 10 reps - quad sets 5 seconds x 10 reps - SAQ x 10 reps - SLR x 10 reps - heel slides x 10 reps - AAROM seated knee flexion x 10 reps Timed Code Treatment Minutes: 20 Total Treatment Minutes: 35 ASSESSMENT Therapist Impression/Summary: Left knee pain, edema, ROM limitation, muscle weakness, and difficultywalking consistent with post-op status. Patient will benefit from skilled physical therapy services to address limitations and return to prior level of functional mobility. PT Clinical Presentation: Low Complexity: Stable and Uncomplicated Clinical Decision Making: Low Complexity Recommendations/Equipment: No additional recommendations at this time Significant Impairments: Pain, Muscle weakness, Edema, ROM Limitation, Joint replacement aftercare Functional Limitations: difficulty with household tasks, difficulty meeting work demands, difficultywith driving, difficulty with gait and difficulty with stairs Goals/Functional Outcomes: HEP/Independent Management: Demonstrate independence with HEP and self- management following each treatment session ADL's: Perform sit to stand transfer using [...] weeks. 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 Barriers to Goal Achievement or Learning: none Prognosis: Good PLAN Planned Intervention/Education: Gait training, Manual Therapy, Neuromuscular Re- education, Therapeutic Activities, Therapeutic Exercise Frequency: 3 x week for 2 weeks then 2 x week for 4 weeks Duration: 45-60 days Discharge Plan: Patient will be discharged from therapy when goals are achieved or patient plateaus in progress. Informed Consent: Patient and/or family in agreement with the care plan. Plan for Next Treatment: Progress per post-op protocol The plan of care has been sent to the out of network referring clinician for signature to certify medical necessity for the plan above. documented in this encounter Plan of Treatment Upcoming Encounters Date Type Specialty Care Team Description 12/17/2021 Appointment Physical Therapy Simon Davis, PT [address] [place], [place] [address] (Wo rk) documented as of this encounter Visit Diagnoses Diagnosis Status post total left knee replacement - Primary documented in this encounter Care Teams Acute Care Registered Nurse Relationship Specialty Start Date End Date Non Pn, Clinician, PCP - General 04/23/13 [place] [address] documented as of this encounter
--- OUTSIDE RECORDS SUMMARY | 2021-12-03 11:18 | XMS_ITS | Encounter Summary ---
:1955 Author Organization [facility] Address [address] [place] [address] Care Team Providers Name Role Phone Non Pn, Clinician MD Primary Care Provider Unavailable Reason for Visit Reason Comments Knee Problem Encounter Details Date Type Department Care Team Description 08/26/2017 Office Visit [place] [facility] Simon Davis, Sta tus post total Therapy PT left knee replacement [address] ([address]) [place] [address] [place], [place] [phone] (Wo rk) Social History Tobacco Use Types Packs/Day Years Used Date Smoking Tobacco: Never Alcohol Use Standard Drinks/Week Comments No 0 (1 standard drink = 0.6 oz pure alcoho l) Sex Assigned at Date Recorded Not on file documented as of this encounter Progress Notes Simon Davis, PT - 08/26/2017 11:15 AM CDT Encounter date: 08/26/2017 Pt : 1955 [address] [facility] [facility] Progress Note Visit Number: 4 Initial Certification Period: 08/19/2017 to 10/18/17 Referring Provider: Russell Maria Surgical Procedure: Left total knee arthroplasty Surgical Date: 08/15/17 Visit Diagnosis: 1. Status post total left knee replacement Precautions: WBAT SUBJECTIVE: Patient states that her follow-up appointment with the surgeon went really well, and they stated herROM was great. OBJECTIVE Current Objective Findings: Left Knee ROM: 5-106 degrees Observation: incision healing nicely Treatment/Education Today: Therapeutic exercise x 35 minutes: - recumbent bike x 6 minutes, seat 11, level 2.0, full revolutions - AAROM supine knee flexion with theraball x 20 reps - SLR x 10 reps x 2 sets - side-lying hip adduction x 10 reps x 2 sets - side-lying hip abduction x 10 reps x 2 sets - prone hip extension x 10 reps x 2 sets - standing hamstring curl x 10 reps x 2 sets - partial squats at counter x 10 reps x 2 sets Timed Code Treatment Minutes: 35 Total Treatment Minutes: 35 Current Home Exercise Program List: - SLR - side-lying hip adduction - side-lying hip abduction - prone hip extension - standing hamstring cur - partial squats at counter - heel slides - AAROM seated knee flexion - towel prop knee extension hang ASSESSMENT/PROGRESS TOWARD GOALS: Patient demonstrates excellent gait pattern with SEC and good knee ROM. Updated HEP for phase II exercises. Functional Goals/Outcomes: HEP/Independent Management: Demonstrate independence [...] weeks. 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 Plan: Progress per post-op protocol documented in this encounter Plan of Treatment Upcoming Encounters Date Type Specialty Care Team Description 12/17/2021 Appointment Physical Therapy Simon Davis, PT [address] [place], [place] [address] (Wo rk) documented as of this encounter Visit Diagnoses Diagnosis Status post total left knee replacement - Primary documented in this encounter Care Teams Woodworking Shop Laborer Relationship Specialty Start Date End Date Non Pn, Clinician, PCP - General 04/23/13 [place] [address] documented as of this encounter
--- OUTSIDE RECORDS SUMMARY | 2021-12-03 11:18 | XMS_ITS | Encounter Summary ---
:1955 Author [facility] Address [address], [place] [address] Care Team Providers Name Role Phone Unavailable Primary Care Provider Unavailable Reason for Visit Reason Comments Other Encounter Details Date Type Department Care Team Description 10/04/2005 Telephone [facility] [address] [facility] Josie Miranda MD Other Medicine [address] [place] [address] [address] [place] [facility]. [place], [place] [address] [place] [address] [phone] Social History Tobacco Use Types Packs/Day Years Used Date Smoking Tobacco: Never Assessed Sex Assigned at Date Recorded Not on file documented as of this encounter Progress Notes Josie Amaral MD - 10/04/2005 12:26 AM CDT Phone Note filed by Josie Amaral MD at 06/30/10647 Author: Josie Amaral MD Service: (none) Author Type: Physician Filed: 06/30/10647 Note Time: 10/04/0525 Status: Signed Laboratory Animal Caretaker: Josie Amaral MD (Physician) PLS MAKE APT WITH ENDO RE HYPERTHYROIDISM PLS SET ME KNOW WHEN APT IS Created on 04Oct2005 0:26am by JOSIE AMARAL On [id number] 1:58pm MAXWELL LOTT wrote: please fill out orders and sign so we can fax the appt request to them- On [id number] 2:00pm JOSIE AMARAL wrote: ENDO REFERRAL FORM PLS Acknowledged by JOSIE AMARAL on 2:00pm On 04Oct2005 2:17pm DAVID BELL wrote: The Endo form is mostly filled out and on your laptop. Acknowledged by DAVID BELL on 2:17pm Acknowledged by JOSIE AMARAL on 2:35pm ANICAL CAR CHECKER documented in this encounter Plan of Treatment Upcoming Encounters Date Type Specialty Care Team Description 12/17/2021 Appointment Physical Therapy Simon Davis, PT [address] [place], [place] [address] (Wo rk) documented as of this encounter Visit Diagnoses Not on filedocumented in this encounter
--- OUTSIDE RECORDS SUMMARY | 2021-12-03 11:18 | XMS_ITS | Encounter Summary ---
:1955 Author Organization [facility] Address [address], [place] [address] Care Team Providers Name Role Phone Non Pn, Clinician MD Primary Care Provider Unavailable Encounter Details Date Type Department Care Team Description 07/03/2013 Imaging [facility] Foot pain, left [address] [place], [place] [address] Social History Tobacco Use Types Packs/Day Years Used Date Smoking Tobacco: Never Assessed Sex Assigned at Date Recorded Not on file documented as of this encounter Plan of Treatment Upcoming Encounters Date Type Specialty Care Team Description 12/17/2021 Appointment Physical Therapy Simon Davis, PT [address] [place], [place] [address] (Wo rk) documented as of this encounter Procedures Procedure Name Priority Date/Time Associated Comments Diagnosis FL INJECTION Routine 07/03/2013 8:52 Foot pain, left Results f or this TARSOMETATARSAL JOINT RT AM CDT pro cedure are in the results section. documented in this encounter Results FL Injection Tarsometatarsal Joint Rt (07/03/2013 8:52 AM CDT) Anatomical Region Laterality Modality Lower Extremity, Foot Other Specimen (Source) Anatomical Location Collection Method / Collectio n Time Received Time / Laterality Volume Narrative 07/03/2013 9:12 AM CDT Fluoroscopically guided therapeutic righ t third and fourth tarsometatarsal joint ??injection with Omnipaque 180, Kenalog, and lidocaine: The risk and procedure were explained to the patient and consent obtained. ??Pause for cause was initiated. ??The right dorsal midfoot region was prepped and draped in standard sterile fashion. ??1% lid ocaine was infiltrated into the skin ove rlying each joint to be injected. ??. ??Under fluoro scopic guidance, a 22-gauge needle was advanced into the third TMT joint. ??0. 1.0 mL of Omnipaque 180 was injected to confirm position, which indicated communica tion with the fourth and second tarsomet atarsal joints as well. ??Subsequently 1mL ??Kenalog 40 and 1 mL 1% lidocaine was injected into the joints. ??There were no complications immediately. The patient reported preprocedural pain of 4 out of 10, and postprocedural pain of 0 out of 10. ? Procedure Note Familia Melendez MD - 08/30/2015Forma tting of this note might be different from the original. Fluoroscopically guided therapeutic righ t third and fourth tarsometatarsal joint injection with Omnipaque 180, Kenalog, and lidocaine: The risk and procedure were explained to the patient and consent obtained. Pause for cause was initiated. The right dorsal midfoot region was prepped and draped in standard sterile fashion. 1% lidocaine was infiltrated into the skin overlying each joint to be injected. . Under fluoroscop ic guidance, a 22-gauge needle was advanced into the third TMT joint. 0. 1.0 mL of Omnipaque 180 was injected to confirm position, which indicated communication with the fourth and second tarsometatarsal joints as well. Subsequently 1mL Kenalog 40 and 1 mL 1% lidocaine was injected into the joints. There were no complications immediately. The patient reported preprocedural pain of 4 out of 10, and postprocedural pain of 0 out of 10. Arias ASHLEY FL documented in this encounter Visit Diagnoses Diagnosis Foot pain, left Pain in limb documented in this encounter Care Teams Tube Machine Operator Relationship Specialty Start Date End Date Non Pn, Clinician, PCP - General 04/23/13 [place] [address] documented as of this encounter
--- OUTSIDE RECORDS SUMMARY | 2021-12-03 11:18 | XMS_ITS | Encounter Summary ---
:1955 Author Organization [facility] Address [address], [place] [address] Care Team Providers Name Role Phone Non Pn, Clinician MD Primary Care Provider Unavailable Reason for Visit Reason Comments Foot Pain Encounter Details Date Type Department Care Team Description 04/27/2013 Surgical Consult [facility] Arias Calle, Foot pain, right [facility] SUSHMA (Primary Dx) [address] [place] [address] [place], [place] [address] [phone] Social History Tobacco Use Types Packs/Day Years Used Date Smoking Tobacco: Never Assessed Sex Assigned at Date Recorded Not on file documented as of this encounter Last Filed Vital Signs Vital Sign Reading Time Taken Comments Blood Pressure - - Pulse - - Temperature - - Respiratory Rate - - Oxygen Saturation - - Inhaled Oxygen Concentration - - Weight 104.3 kg (230 lb) 04/27/2013 1:00 PM COAT MAKER Height 177.8 cm (5' 10) 04/27/2013 1:00 PM COAT MAKER Body Mass Index 33 04/27/2013 1:00 PM COAT MAKER documented in this encounter Progress Notes Arias Calle PA-C - 04/29/2013 8:55 PM CST Progress Notes signed by Arias Calle PA-C at 05/16/13 0900 Author: Arias Calle PA-C Service: (none) Author Type: Physician Petrophysicist Filed: 05/16/13 09 Note Time: 04/30/13928 Status: Signed Broadcast Maintenance Engineer: Arias Calle PA-C (Physician Petrophysicist) NAME: LUDA GARCIA MR#: [id number] [facility]: [id number] AUTHENTICATING CLINICIAN: Arias Calle PA-C CONFIRM #: [id number] LOC: 711 CLINIC PROGRESS NOTE DATE OF VISIT: 04/27/2013 : 1955 SUBJECTIVE: Luda complains of right foot pain off and on since November 13, 2012, when she tripped over a cart.She complains of pain about the lateral aspect of her foot and has had difficulties weightbearing ever since. She has pain that shoots up in her 5th toe, but her primary complaint of pain is now in thebase of the 5th metatarsal. She is in clinic today for further evaluation. Denies any specific trauma prior to this. Denies numbness or tingling and has been using rest, ice, and modification of her activities. [facility]. Her current medical problems include histoplasmosis, arthritis, and macular degeneration. CURRENT MEDICATIONS: Reviewed and updated in [employer]. ALLERGIES: Reviewed and updated in [employer]. PAST MEDICAL HISTORY: Her previous surgery includes a left knee surgery. SOCIAL: The patient is . 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 Denies any tobacco use and drinks a glass of wine daily. REVIEW OF SYSTEMS: Significant for weight gain, glasses. Denies any history of heart, lung, liver, renal, GI cancers, diabetes, or arthritis. FAMILY HISTORY: Significant for father with cancer and heart disease. Mother with heart disease, rheumatoid arthritis, and osteoporosis. OBJECTIVE: On exam today, demonstrates a 57-year-old female in no distress. Answers questions appropriately. Height is 70 inches and 230 pounds. Bilateral foot exam demonstrates skin that is cool to touch. She has point tenderness to palpation with that of the proximal shaft of the 5th metatarsal on the right side in comparison to the left. Shehas full active range of motion of her ankle, subtalar, and transverse tarsal joints. All tendons are intact with 5/5 strength. She has a 2+ pedal pulse and is neurovascularly intact distally with goodcapillary refill. No evidence of erythema, ecchymosis, or lesions are appreciated. IMAGING: Radiographs are obtained today and independently reviewed. These demonstrated no evidence of obviousacute bony abnormalities. Possibly a subtle fracture was noted in the area of point tenderness in the proximal shaft of the 5th metatarsal. This is difficult to assess whether this is a true fracture line or not. IMPRESSION: Suspected 5th metatarsal Salvador fracture. PLAN: I discussed treatment options with the patient including that of Cam boot versus crutches. After a lengthy discussion regarding this, she is to weight bear as tolerated in a Cam boot. We will basicallytreat this as a cast, taking it off only for sleep and showers. She will follow up with me in 1 month's time for reexamination. The patient was satisfied with this and will follow up with me in 1 month's time for re-examination and pre-clinic x-rays, 3 views of her foot prior to examination. I also encouraged her to get a normal daily intake of calcium, about 1200 mg daily through her diet. Was provided with an ASLO lace-up ankle brace for driving purposes only but to use her Cam boot when she is not driving. The patient was satisfied with this. All questions were answered. DIAGNOSIS: 719.47. LEVEL OF SERVICE: Established level 4. JCS:MEDQ C: R:04/30/13 08:28 CONFIRM#:[id number] MAKER documented in this encounter Plan of Treatment Upcoming Encounters Date Type Specialty Care Team Description 12/17/2021 Appointment Physical Therapy Simon Davis, PT [address] [place], [place] [address] (Wo rk) documented as of this encounter Procedures Procedure Name Priority Date/Time Associated Diagnosis Comme nts XR FOOT RT 3+ VIEWS Routine 04/27/2013 11:42 AM Foot pain, rig ht Results for this COAT MAKER procedure are i n the results section. documented in this encounter Results XR Foot Rt 3+ Views (04/27/2013 11:42 AM COAT MAKER) Anatomical Region Laterality Modality Lower Extremity, Foot Other Specimen (Source) Anatomical Location Collection Method / Collectio n Time Received Time / Laterality Volume Narrative 04/27/2013 12:35 PM COAT MAKER COMPARISON: None. FINDINGS: No fracture or dislocation con firmed. ?A 0.7 cm ovoid ossific focus as seen on AP view projecting just lateral to the fibular sesamoid at the first MTP joint reflect sequela of old trauma and is of uncertain significance in itse lf. ??There is plantar calcaneal spur. ??Some slight sp urring of the distal tibia with no significant degenerative change otherwise confirmed. ?? Procedure Note Izaiah Juárez MD - 08/30/2015Formatt ing of this note might be different from the original. COMPARISON: None. FINDINGS: No fracture or dislocation con firmed. A 0.7 cm ovoid ossific focus as seen on AP view projecting just lateral to the fibular sesamoid at the first MTP joint reflect sequela of old trauma and is of uncertain significance in itself. There is plantar calcaneal spur. Some slight spur ring of the distal tibia with no significant degenerative change otherwise confirmed. Arias ASHLEY GD documented in this encounter Visit Diagnoses Diagnosis Foot pain, right - Primary Pain in limb documented in this encounter Care Teams Heat And Frost Insulator Helper Relationship Specialty Start Date End Date Non Pn, Clinician, PCP - General 04/23/13 [place] [address] documented as of this encounter
--- OUTSIDE RECORDS SUMMARY | 2021-12-03 11:18 | XMS_ITS | Encounter Summary ---
:1955 Author Organization [facility] Address [address] [place] [address] Care Team Providers Name Role Phone Non Pn, Clinician MD Primary Care Provider Unavailable Reason for Visit Reason Comments Physical Therapy Encounter Details Date Type Department Care Team Description 01/14/2014 Office Visit [facility] Rakesh Vilchis, PT Right shoulder pain (Primary Dx); Center, Physical [address] [place] [address] Stiffness of joints, not elsewhere class ified, multiple sites; Therapy [place], [place] Muscle weakness (generalized ); [address] [address] Left hip pain [address] [place], [place] [address] [phone] Social History Tobacco Use Types Packs/Day Years Used Date Smoking Tobacco: Never Assessed Sex Assigned at Date Recorded Not on file documented as of this encounter Progress Notes Rakesh Vilchis, PT - 01/14/2014 3:45 PM CST [facility] [place] [facility] Daily Note Visit Number: 5 Initial Certification Period: 12/17/2013 - 03/11/2014 Referring [...] up to her hip. 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 Today has beenone of the best days she has had for her hip and shoulder in a year or so, but this weekend as a whole was rough. Overall, she is sleeping well about 2-3 nights/weeks now vs. never prior to starting PT. She remains active with her HEP. OBJECTIVE: Today???s Findings: HIP: Gait Observation/Inspection: mod to significantly knock kneed Strength: per therapeutic exercise listed below Palpation: extremely tender throughout medial > lateral > anterior knee, mod tender at lateralhip/glute region Functional Tests: Double leg squat: no valgus and mod anterior loading ; increased w/single leg squat Shoulder: Posture/Alignment: forward head, rounded shoulders and thoracic kyphosis increased ROM: flexion: 175 abduction: 175 ER: 100 ER at 90: 105 SLIR: 51 Biomechanical Analysis/Scapular rhythm: increased anterior tilt Joint mobility: Scapulothoracic: reduced GH: reduced Thoracic spine: reduced Flexibility: Pectoralis minor: reduced Infraspinatus/teres minor: reduced Palpation: tender at posterior capsule and anterior GH site - much improved today TREATMENT TODAY: Therapeutic Exercise (CPT 25972) x 25 minutes: Reviewed/demo'd current HEP including: hip: side lying clam shells for glute strength x fatigue/30 with TB supine double leg bridges with TB x fatigue/30 reps self soft tissue mobilization with foam roller throughout entire LE's Shoulder: side lying sleeper stretch for posterior capsule mobility, 3 x 30 sec - great performance standing pectoral stretch in doorway, 3 x 30 sec - PRN now self thoracic extension with foam roller self soft tissue mobilization with foam roller pectoral stretch/wall angels with foam roller added: side lying ER with 1 lbs dumb currie x fatigue/15 reps Patient correctly performed all exercises following mild verbal, tactile, and visual cues regarding isolation of intended musculature and to keep exercises pain free, and displayed good understanding of exercise parameters and progression. Neuro Re Education: 15 minutes Knees/Hip Instructed/Demo'd/Observed the following: double progressing to single leg squatting technique supported at railing and advancing to unsupported as able ascending/descending stairs - worked specifically on engagement of glutes and core and inhibition of anterior loading and dynamic valgus moment - again reviewed being an anthlete at all times with work/daily activities Manual Therapy: 15 minutes Performed the following to improve pain, ROM, and functional mobility: soft tissue mobilization throughout entire left knee surrounding soft tissue - improved pain by 50% post tx ASSESSMENT: Patient continues to respond very well to current HEP and is demonstrating marked improvements in pain, function, and overall mobility from when she started PT roughly 5 weeks ago. She remains very dedicated to her HEP, and needs less and less cues with this each week. PLAN: Progress HEP/therapeutic exercise as appropriate and able. Manual therapy and modalities for pain control as needed. thoracic circles? add band to squats EXPECTED FUNCTIONAL OUTCOMES/GOALS: HEP/Independent Management: Demonstrate independence with HEP and self- management following each treatment session ADL's: Resume previous sleep pattern without awakening due to symptoms in 6 weeks. Perform home management tasks with ease in 6 weeks. Perform sit to stand transfer using involved lower extremity in 4 weeks. Squat to moss picker items from floor with minimal/no symptoms [...] Therapeutic Exercise 25 minutes Neuromuscular Re Education 15 minutes Manual Therapy: 15 minutes Total Treatment Time: 60 minutes Therapist: Rakesh Vilchis PT, DPT, OCS # [id number] documented in this encounter Plan of Treatment Upcoming Encounters Date Type Specialty Care Team Description 12/17/2021 Appointment Physical Therapy Simon Davis, PT [address] [place], [place] [address] (Wo rk) documented as of this encounter Visit Diagnoses Diagnosis Right shoulder pain - Primary Pain in joint, shoulder region Stiffness of joints, not elsewhere class ified, multiple sites Muscle weakness (generalized) Left hip pain Pain in joint, pelvic region and thigh documented in this encounter Care Teams Bulb Weeder Relationship Specialty Start Date End Date Non Pn, Clinician, PCP - General 04/23/13 [place] [address] documented as of this encounter
--- OUTSIDE RECORDS SUMMARY | 2021-12-03 11:18 | XMS_ITS | Encounter Summary ---
:1955 [facility] Address [address] [place] [address] Care Team Providers Name Role Phone Non Pn, Clinician Primary Care Provider Unavailable Reason for Visit Reason Comments Return Call Encounter Details Date Type Department Care Team Description 05/08/2013 Telephone [facility] [place] Arias Santos, SUSHMA Return Call [address] [facility] [place] [address] [address] [place] [address] [phone] (Wo rk) Social History Tobacco Use Types Packs/Day Years Used Date Smoking Tobacco: Never Assessed Sex Assigned at Date Recorded Not on file documented as of this encounter Nursing Notes Pam Gamboa - 05/08/2013 3:10 PM CST patient requesting phone call back from you documented in this encounter Plan of Treatment Upcoming Encounters Date Type Specialty Care Team Description 12/17/2021 Appointment Physical Therapy Simon Davis, PT [address] [place], [place] [address] (Wo rk) documented as of this encounter Visit Diagnoses Not on filedocumented in this encounter Care Teams Porcelain Buildup Assistant Relationship Specialty Start Date End Date Non Pn, Clinician, PCP - General 04/23/13 [place] [address] documented as of this encounter
--- OUTSIDE RECORDS SUMMARY | 2021-12-03 11:18 | XMS_ITS | Encounter Summary ---
:1955 Author Organization [facility] Address [address] [place] [address] Care Team Providers Name Role Phone Non Pn, Clinician Primary Care Provider Unavailable Encounter Details Date Type Department Care Team Description 06/27/2013 Notes/Orders [facility] Luc, Arias C, Foot susan n, right [facility]ENTER PA-C (Primary Dx) [address] [facility] [address] Mckenna MD [address] [place], [place] [phone] (Wo rk) Social History Tobacco Use Types Packs/Day Years Used Date Smoking Tobacco: Never Assessed Sex Assigned at Date Recorded Not on file documented as of this encounter Plan of Treatment Upcoming Encounters Date Type Specialty Care Team Description 12/17/2021 Appointment Physical Therapy Simon Davis, PT [address] [place], [place] [address] (Wo rk) documented as of this encounter Visit Diagnoses Diagnosis Foot pain, right - Primary Pain in limb documented in this encounter Care Teams Animal Shelter Clerk Relationship Specialty Start Date End Date Non Pn, Clinician, PCP - General 04/23/13 [place] [address] documented as of this encounter
--- OUTSIDE RECORDS SUMMARY | 2021-12-03 11:18 | XMS_ITS | Encounter Summary ---
:1955 Author Organization [facility] Address [address] [place] [address] Care Team Providers Name Role Phone Non Pn, Clinician MD Primary Care Provider Unavailable Reason for Visit Reason Comments Knee Problem Encounter Details Date Type Department Care Team Description 09/02/2017 Office Visit [place] [facility] Simon Davis, Sta tus post total Therapy PT left knee replacement [address] ([address] Dx) [place] [address] [place], [place] [phone] (Wo rk) Social History Tobacco Use Types Packs/Day Years Used Date Smoking Tobacco: Never Alcohol Use Standard Drinks/Week Comments No 0 (1 standard drink = 0.6 oz pure alcoho l) Sex Assigned at Date Recorded Not on file documented as of this encounter Progress Notes Simon Davis, PT - 09/02/2017 11:15 AM CDT Encounter date: 09/02/2017 Pt : 1955 [address] [facility] Progress Note Visit Number: 7 Initial Certification Period: 08/19/2017 to 10/18/17 Referring Provider: Russell Maria Surgical Procedure: Left total knee arthroplasty Surgical Date: 08/15/17 Visit Diagnosis: 1. Status post total left knee replacement Precautions: WBAT SUBJECTIVE: Patient states that going up to [employer], shopping, and then coming back was a little too much the other day. She could tell the knee was more stiff and sore with all of the walking. No new complaints otherwise. OBJECTIVE Current Objective Findings: Left Knee ROM: 2-112 degrees Treatment/Education Today: Therapeutic exercise x 28 minutes: - recumbent bike x 8 minutes, seat 11, level 3.0, full revolutions - leg press 3 plates x 10 reps x 2 sets - squats at counter x 10 reps x 2 sets - single leg stance at counter 30 seconds x 2 sets - forward 6 step-ups x 10 reps - lateral 6 step-ups x 10 reps - AAROM knee flexion on step x 10 reps Manual therapy x 10 minutes: - grade IV inferior glides patella - grade III-IV posterior glides tibia on femur - grade III-IV ER tibia on femur Timed Code Treatment Minutes: 38 Total Treatment Minutes: 38 Current Home Exercise Program List: Access Code: [email or web address] Step Up - 10 reps - 2 [...] 7x weekly ASSESSMENT/PROGRESS TOWARD GOALS: Patient's ROM and gait pattern and progressing very well. Some fatigue noted with weightbearing exercises today. Discussed she should be able to drive soon now that she is off of the heavy pain meds. Functional Goals/Outcomes: HEP/Independent Management: Demonstrate independence with [...] weeks. 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 Plan: Progress per post-op protocol documented in this encounter Plan of Treatment Upcoming Encounters Date Type Specialty Care Team Description 12/17/2021 Appointment Physical Therapy Simon Davis, PT [address] [place], [place] [address] (Wo rk) documented as of this encounter Visit Diagnoses Diagnosis Status post total left knee replacement - Primary documented in this encounter Care Teams Shuttle Veneering Supervisor Relationship Specialty Start Date End Date Non Pn, Clinician, PCP - General 04/23/13 [place] [address] documented as of this encounter
--- OUTSIDE RECORDS SUMMARY | 2021-12-03 11:18 | XMS_ITS | Encounter Summary ---
:1955 Author Reason for Visit *ANNUAL EXAM 41 - 65 POSTMENOPAUSAL Annual examination Assessment and Plan Assessment Note Normal gynecologic examination. Postmen opausal female with no acute NEUROPATHOLOGIST problems. Recent diagnosis of giant cell arteritis . Primary care provider is Dr. Reese Wells. 1. Gynecologic examination ? cytology report, thin prep, smear or scraping, cervical or vaginal 2. 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 This was a normal annual gynecologic exam. She does have a primary care provider who performs routine lab assessments and he r general medical needs. Bilateral scree ana mammogram is due, colonoscopy to be repeated as recommended. Pap smear with cotesting today, likely the patient's last Pap smear necessary. Discussed bone de nsity evaluation and consideration with mammography. All questions answered. I discussed with her her numbness that she has developed an inability to have a sensation when she needs to void or have a autumn wel movement. She does have ongoing foll ow-up with neurology and urology with further measures to be determined. - Encouraged breast self-awareness and m onthly breast exams. - Recommend mammogram annually - Encouraged regular exercise. - Discussed calcium, vitamin D, and weig ht bearing exercise for bone health. - Discussed osteoporosis screening guide lines. - Recommend colonoscopy at recommended i ntervals - Encouraged patient to establish care w ith a PCP to manage non-NEUROPATHOLOGIST concerns if she does not already have one. - Reviewed current cervical cancer jacoby perez guidelines. PAP smear recommendations after age 65 without a history of cervical cancer or severe dysplasia within the last 20 years discussed. - Discussed indications to call or retur n in the menopausal period including post menopausal bleeding Patient educational handouts: No information available. Plan of Care Patient Instructions Return in 1 year for annual examination . Annual screening mammography recommended and the patient is due. Pap smear today with cotesting. Discussed bone density evaluation. Colonoscopy normal in 2016, repeat in 2026. Call for any concerns or issues. Reminders Provider Appointments None recorded. ? ? Lab Cytology Report, Thin Prep, Smear or 2 [facility] Scraping, Cervical or Vaginal Referral None recorded. ? ? Procedures None recorded. ? ? Surgeries None recorded. ? ? Imaging None recorded. ? ? Medications Name Start Date ? ? atorvastatin 20 mg tablet ? TAKE 1 TABLET BY MOUTH AT BEDTIME Complete Multi 50+ ? cyclobenzaprine 10 mg tablet ? TAKE 1/2 TO 1 TABLET BY MOUTH THREE TIMES DAILY NE EDED cyclosporine 0.05 % eye drops in a dropperette ? INSTILL 1 DROP IN BOTH EYES EVERY 12 HOURS furosemide 40 mg tablet ? TAKE 1 TABLET BY MOUTH DAILY gatifloxacin 0.5 % eye drops ? hydroxyzine pamoate 25 mg capsule ? TAKE 1-2 CAPSULES BY MOUTH EVERY 4-6 HOURS NEEDED FOR PAIN/MUSCLE SPASMYS. ketorolac 0.5 % eye drops ? lorazepam 1 mg tablet ? TAKE 1 TABLET BY MOUTH AT BEDTIME NEEDED loteprednol etabonate 0.5 % eye drops,suspension ? metformin 1,000 mg tablet ? TAKE 1 TABLET BY MOUTH DAILY ondansetron HCl 4 mg tablet ? TAKE 1 TABLET BY MOUTH EVERY 6 HOURS NEEDED FOR NA USEA. oxycodone 5 mg tablet ? TAKE 1 TABLET BY MOUTH EVERY 6 HOURS NEEDED FOR PA IN. phenazopyridine 200 mg tablet ? prednisone 20 mg tablet ? prednisone 5 mg tablet ? PreserVision AREDS-2 ? primidone 50 mg tablet ? 1 tablet every day by oral route. prochlorperazine maleate 5 mg tablet ? propranolol ER 120 mg capsule,24 hr,extended release ? TAKE 1 CAPSULE BY MOUTH DAILY sulfamethoxazole 800 mg-trimethoprim 160 mg tablet ? TAKE 1 TABLET BY MOUTH TWICE DAILY IN A DDITION TO PREVIOUS PRESCRIPTION. TO COMPLETE A 14 DAY COURSE tizanidine 4 mg tablet ? TAKE 1 AND 1/2 TABLETS BY MOUTH EVERY 6 TO 8 HOURS NEEDED FOR PAIN OR SPASMS triamcinolone acetonide 0.1 % topical cream ? APPLY 1 APPLICATION DIRECTED TOPICAL LY TO ABDOMEN TWICE DAILY FOR 2 WEEKS THEN NEEDED triamterene 37.5 mg-hydrochlorothiazide 25 mg capsule ? TAKE 1 CAPSULE BY MOUTH DAILY venlafaxine ER 150 mg capsule,extended release ? venlafaxine ER 150 mg capsule,extended release 24 hr ? TAKE 1 CAPSULE BY MOUTH DAILY. TAKE WITH 75 MG CAPLET . venlafaxine ER 75 mg capsule,extended release 24 hr ? TAKE ONE CAPSULE BY MOUTH DAILY WITH 150MG Medications Administered None recorded. Vitals Height Weight BMI Blood Pressure 5 ft 10 in 224.4 lbs 32.2 kg/m2 132/64 mm[Hg] Results Lab Results Date Name Specimen Result Interpretation Description Value Range Status Address ? 09/17/2021 Pap, IG + CERVIX ? Interpretation nilm ? [facility] HPV Diseas e (16+18+45) Detect ion (Lab): [address], [place] ? ? CERVIX ? Category: nil ? [facility] (Lab): [address], [place] ? ? CERVIX ? Adequacy: paer ? Final [facility] (Lab): [address], [place] ? ? CERVIX ? Clinician comment ? Final Cente r For Provided ICD10: D isease Detection (Lab): [address], [place] ? ? CERVIX ? Performed by: comment ? Final [facility] (Lab): [address], [place] ? ? CERVIX ? Note: comment ? Final [facility] (Lab): [address], [place] ? ? CERVIX ? Test comment ? Final Center Fo r Methodology: Dise ase Detection (Lab): [address], [place] ? ? CERVIX ? HPV Aptima negative negative Final [facility] (Lab): [address], [place] Allergies Code Code System Name Reaction Severity Onset NKDA ? ? ? Problems None recorded. Procedures Date Name Performed by ? 04/14/2021 Back Fusion Information not avai lable ? Repair of Knee Cartilage Information not available ? Arthroscopic Knee Operation Information not available Notes: *Surgery Date: 2005 *Notes: lef t; showed some arthritis ? Tooth Extraction Information not avai lable Vaccine List None recorded. Social History Tobacco Smoking Status Never Smoker Notes: Tobacco *Status: Never *Note: 12/04/2018 - What is your level of alcohol Occasional Notes: A lcohol *Status: Current consumption? some day *Qty: 5-6dr /wk Marital status Notes: What is your level of caffeine Moderate Notes: Caffeine *Status: Current consumption? every day *Qty: 2c/d ay Which illicit or recreational drugs Not es: Denies illicit substance have you used? abuse History of domestic violence N Notes: De nies All Domestic Violence What is your exercise level? None Notes: No ne (Sedentary) Spouse/Partners Name Notes: Spouse Par tner Name *Note: Sebas Family History Relation Problem Onset Age of Age Notes Father Family history of Blood 50 N/A Clot s in legs disorder Father Cancer in situ of 50 N/A Bladder Ca rcinoma In urinary bladder Situ Father Disorder of bone and (No N/A Osteopo rosis articular cartilage Information) Father Old myocardial (No N/A Heart Attack infarction Information) Father Hyperlipidemia (No N/A High Choleste rol / Information) Hyperlipidemia Father Family history of (No N/A Heart dise ase Cardiovascular disease Information) Mother Disorder of thyroid (No N/A Thyroid Disease gland Information) Mother Arthritis (No N/A Arthritis, Rheu matoid Information) Mother Disorder of bone and (No N/A Osteopo rosis articular cartilage Information) Mother Family history of (No N/A Heart dise ase Cardiovascular disease Information) Mother Family history of Blood (No N/A Clot s in legs disorder Information) Sister Family history of (No N/A Heart dise ase Cardiovascular disease Information) Sister Family history of (No N/A Diabetes diabetes mellitus Information) Maternal Family history of (No N/A Cancer Col on Grandfather malignant neoplasm of Information) gastrointestinal tract Paternal Family history of (No N/A Stroke Grandmother stroke Information) Brother Family history of (No N/A Heart dise ase Cardiovascular disease Information) Functional Status Unknown. Past Encounters 09/17/2021 Gynecologic Examination; Giant Cell Regina ritis with Polymyalgia Rheumatica Abel Card MD: [address] [place] [phone], Ph. History of Present Illness Note: <div>Gloria presents for office today for her annual gynecologic examination. She recently underwent back surgery and has developed neurologic and urologic issues particularly and numbness sensation and an inability to feel the need to empty her bladder. She underwent a back fusion procedure andduring the recovery. Fell and broke her foot. This has significantly occupied her medical history over the last year or so. In a separate issue, she was evaluated for a severe headache, evaluated by ophthalmology and was and has been diagnosed with giant cell arteritis with polymyalgia rheumatica. Shehas been on high-dose prednisone and is currently being tapered. She does have her routine blood work performed through Dr. Wells's office. Gloria's last Pap smear was in 2017 and she is 65 years of age. A Pap smear with cotesting was therefore performed today. She is due for a bilateral screening mammogram. Bone density has not been performed.</div> Review of Systems ? General Adult ROS Reported By: Patient Constitutional: Constitutional: no fever, no night sweats, no significant weight gain, no significant weight loss, no exercise intolerance Eyes: Eyes: no dry eyes, no irrita tion, no vision change ENMT: Ears: no difficulty hearing, no ear pain. Nose: no frequent nosebleeds, no nose/sinus pr oblems. Mouth/Throat: no sore throat, no bleeding gums, no snoring, no dry mouth, no mouth ulcers, no oral abnormalitie s, no teeth problems Cardiovascular: Cardiovascular: no chest susan n, no chest pain on exertion, no shortness of breath when wal latricia, no shortness of breath when lying down, no palpitations, no known heart murmur, no leg swelling, no radiating pain Respiratory: Respiratory: no cough, no wh eezing, no shortness of breath, no coughing up blood Gastrointestinal: Gastrointestinal: no abdomin al pain, no vomiting, normal appetite, no diarrhea, not v omiting blood Genitourinary: Genitourinary: no incontinen ce, no difficulty urinating, no hematuria, no increased freq uency Musculoskeletal: Musculoskeletal: no muscle a ches, no muscle weakness, no arthralgias/joint pain, no b ack pain, no swelling in the extremities Integumentary: Skin: no abnormal mole, no j aundice, no rashes, no cyanosis Neurologic: Neurologic: no loss of consc iousness, no weakness, no numbness, no seizures, no di zziness, no headaches, no tingling Psychiatric: Psych: no depression, no sle ep disturbances, feeling safe in relationship, no alcohol abu se Endocrine: Endocrine: no fatigue Hematologic/Lymphatic: Hematologic/Lymphatic no swo llen glands, no bruising Allergic/Immunologic: Allergy/Immunologic: no runn y nose, no sinus pressure, no itching, no hives, no freque nt sneezing Physical Exam ? Annual Exam ([facility]) Reported By: Patient Constitutional: *General Appearance: healthy -appearing, well-nourished, well-developed Head: Head: normocephalic Neck: *Thyroid: no enlargement, no nodules, non-tender Lymph Nodes: *Palpation: normal Cardiovascular: *Auscultation: RRR, no murmu r. *Peripheral Vascular: no varicosities, no edema Lungs: *Respiratory Effort: no acce ssory muscle usage, no intercostal retractions. *Auscultation: clear to auscultation, no wheezing, no rales/crackles, no rhonch i. Inspection: normal, normal respiratory rate *Breast: Bilateral: no skin changes, nipple appearance: normal, no abnormal nipple secretions, no tenderness, no masses palpable. Right Breast: normal. Left B reast: normal Abdomen: *Inspection/Palpation/Auscul tation: non-distended, no tenderness, no rebound, no g uarding, soft, no hepatomegaly, no splenomegaly. *Hernia: none palpated Back: Appearance normal. Palpation no costovertebral angle tenderness Female Genitalia: Vulva: no masses, no atrophy , no lesions. Mons: normal, no erythema, no excoriation, no atrophy, no lesions, no vesicles/ ulcers, no masses, no swelli ng, no tenderness. Labia Majora: normal, no erythema, no exco riation, no atrophy, no discoloration, no lesions, n o vesicles/ ulcers, no masses, no swelling, no tenderness. Lab ia Minora: normal, no erythema, no excoriation, no atrophy, no discoloration, no lesions, no vesicles, no masses, no swel ling, no tenderness. Introitus: normal. Bartholin's Gland: n ormal. *Vagina: normal, no discharge, no blood present, no erythema, no atrophy, no lesions, no ulcers, no swell ing, no masses, no tenderness, no prolapse. *Cervix: grossly n ormal, no lesions, no discharge, no bleeding, no cervical motion tenderness, sample taken for a Pap smear. *Uterus: normal size, normal contour, midline, no uterine prolapse, mobile, non-tender . *Urethral Meatus/ Urethra: normal meatus, no discharge, well s upported urethra, no masses, no tenderness. *Bladder: non-di stended, no palpable mass, non-tender. *Adnexa/Parametr ia: no mass palpable, no tenderness Rectum: *Anus & Perineum: normal per ianal skin, no anal fissure, no hemorrhoids, normal perineum . *Digital Rectal: sphincter tone normal, no hemorrhoids, no m asses, normal rectovaginal septum Extremities: Legs: normal. Arms: normal. Pulses: normal Skin: *Appearance: no rashes, no l esions Neurological System: Impressions: motor: no defic its, sensory: no deficits Psychiatric: *Orientation: to person, to place, to time. *Mood and Affect: active and alert, normal moo d, normal affect
--- OUTSIDE RECORDS SUMMARY | 2021-12-03 11:18 | XMS_ITS | Encounter Summary ---
:1955 Author Organization [employer] Address [address] [place] [address] Care Team Providers Name Role Phone Non Pn, Clinician MD Primary Care Provider Unavailable Reason for Visit Reason Comments Physical Therapy Encounter Details Date Type Department Care Team Description 12/10/2013 Initial Consult [facility] Rakesh Vilchis, PT Right shoulder pain (Primary Dx); Center, Physical [address] [place] [address] Stiffness of joints, not elsewhere class ified, multiple sites; Therapy [place], [place] Muscle weakness (generalized ) [address] [address] [address] [phone] [place] (Work) [address] [phone] Social History Tobacco Use Types Packs/Day Years Used Date Smoking Tobacco: Never Assessed Sex Assigned at Date Recorded Not on file documented as of this encounter Progress Notes Rkaesh Vilchis, PT - 12/13/2013 3:36 PM CDT Physical Therapy Shoulder Evaluation/Plan of Care Initial Certification Period: 12/13/2013 - 03/15/2013 Referring Provider: Arias Calle PA-C Diagnosis: right shoulder pain Orders: Evaluate & treat Precautions/Contraindications: none noted Date of Onset: 8 months ago Standardized Functional Scores: QuickDash: --% on ADL section, --% on work module, --% on sports/performing arts module (higher scores represent greater disability) History: Method of Injury: Patient reports developing right shoulder pain roughly 8 months ago of insidious onset. 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 Past Medical History: See EMR for details regarding past medical history, medications and drug allergies. No past medical history on file. No past surgical history on file. OBJECTIVE: General: Mood, orientation and behavior were appropriate. Patient was alert and oriented. Posture/Alignment: forward head, rounded shoulders and thoracic kyphosis increased Cervical Screening: WNL, but pain/tightness in upper traps at end ranges ROM: flexion: 170 abduction: 170 ER: 90 ER at 90: 90 SLIR: 15 Biomechanical Analysis/Scapular rhythm: increased anterior tilt Joint mobility: Scapulothoracic: reduced GH: rduced Thoracic spine: reudced Flexibility: Pectoralis minor: reduced Infraspinatus/teres minor: reduced Neurological Screen: Not performed Strength: reduced in posterior shoulder and scapula Scapular stability: see above Palpation: tender at posterior capsule and anterior GH site Shoulder Special Tests: + nino and neer Functional Tests: Hands behind head restricted. Hands behind back restricted. Hands on opposite shoulders restricted. TREATMENT TODAY: Physical Therapy Evaluation (CPT 58169): An evaluation was performed. The patient was educated on the condition, planned therapy intervention and expectations from treatment. Goals were a collaborativeeffort of the therapist and patient. Therapeutic Exercise (CPT 21689) x 15 minutes: Instructed, observed, and provided educational handouts on the following exercises: side lying sleeper stretch for posterior capsule [...] good understanding of exercise parameters and progression. Plan for next treatment session: Progress HEP/therapeutic exercise as appropriate and able. Manual therapy and modalities for pain control as needed. Education/Handouts: Diagnosis Education, RICE principles, Sleep/rest positions Response to treatment: Good understanding of HEP ASSESSMENT: Therapist Impression: Gloria presents to physical therapy today with complaints of pain, reduced strength and ROM, tenderness to palpation, and overall impaired functional mobility all concurrent with her referral diagnosis of right shoulder pain consistent with RTC tendinopathy and angterior impingement. She should do very well with loosening up her posterior capsule, improving postural awareness, and increasing strength in posterior shoulder. Pt. is a very pleasant and motivated individual, who would benefit from skilled physical therapy to address the above mentioned deficits and help her achieveher goals. Practice Pattern: 4C - Impaired mm performance Barriers to Learning: none Rehab Prognosis: Excellent PLAN: Planned Intervention/Education: Education, Therapeutic Exercise, Manual Therapy, Neuromuscular Re-education, Self Care/Home Management, Therapeutic Activities, Ice, Ultrasound, Vasopneumatic Compression, E-Stim: Unattended, Iontophoresis with Dexamethasone PT Frequency/Duration: 1 x/week for 60-90 days Discharge Plan: Goal achievement, goal achievement with home exercise program or if progress plateaus. Informed Consent: Risks, benefits and alternatives to treatment have been explained. Patient and/or family in agreement with care plan. EXPECTED FUNCTIONAL OUTCOMES/GOALS: HEP/Independent Management: Demonstrate independence with HEP and self- management following each treatment session ADL's: Resume previous sleep pattern without awakening due to symptoms in 8 weeks. Perform home management tasks with ease in 6 weeks. Lie or sleep on right side without waking during the night in 6 weeks. [place] hair and face in 4 weeks. Driving: Fasten seatbelt using involved extremity in 6 weeks. 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 Total treatment time: 45 minutes Evaluation and Plan of Care completed by: Rakesh Vilchis, PT, DPT, OCS # [id number] The steel erector is completed by the therapist and the physician electronic signature certifies medical necessity for the plan above. documented in this encounter Plan of Treatment Upcoming Encounters Date Type Specialty Care Team Description 12/17/2021 Appointment Physical Therapy Simon Davis, PT [address] [place], [place] [address] (Wo rk) documented as of this encounter Visit Diagnoses Diagnosis Right shoulder pain - Primary Pain in joint, shoulder region Stiffness of joints, not elsewhere class ified, multiple sites Muscle weakness (generalized) documented in this encounter Care Teams [employer] Admin Relationship Specialty Start Date End Date Non Pn, Clinician, PCP - General 04/23/13 [place] [address] documented as of this encounter
--- OUTSIDE RECORDS SUMMARY | 2021-12-03 11:18 | XMS_ITS | Encounter Summary ---
:1955 [facility] Address [address] [place] [address] Care Team Providers Name Role Phone Non Pn, Clinician MD Primary Care Provider Unavailable Reason for Visit Reason Comments Knee Pain or Injury Encounter Details Date Type Department Care Team Description 09/03/2013 Surgical Consult [facility] Arias Calle, Knee pain (Primary Dx); [facility] Primary localized osteoarthrosis, lower leg; [address] Foot pain, [place] [address] [phone] Social History Tobacco Use Types Packs/Day Years [...] - - Weight 99.8 kg (220 lb) 09/03/2013 2:50 PM CDT Height 177.8 cm (5' 10) 09/03/2013 2:50 PM CDT Body Mass Index 31.57 09/03/2013 2:50 PM CDT documented in this encounter Patient Instructions Patient InstructionsSoni Ochoa MA - 09/03/2013 3:40 PM CDT Arias Calle PA-C Sports Medicine and General Orthopedics Accounting Office Manager: Juliette Parham Please contact Juliette for all administrative questions at [phone] Please call Nurse Triage at [phone] for all medical questions Fax number: [phone] Medication Requests: Prescriptions are not filled on Weekends or on Weekdays after 3:00PM For all medication refills: Request a refill using [facility] or contact your Pharmacy If you develop new or worsening symptoms call [facility] at [phone] Thank you for enrolling in [facility]. Please follow the instructions below to securely access your online medical record. [facility] allows you to send messages to your doctor, view your test results, renewyour prescriptions, schedule appointments, and more. How Do I Sign Up? 1. In your Internet browser, go to: [email or web address] 2. Click on the Enter Activation Code link under the New User? section. You will see the New Member Sign Up page. 3. Enter your [facility] Activation Code exactly as it appears below. You will not need to use this code after you???ve completed the sign-up process. If you do not sign up before the expiration date, youmust request a new code. [facility] Activation Code: [email or web address] Expires: 10/03/2013 3:40 PM 4. Enter your Date of (mm/dd/yyyy), Home Phone Number and Zip Code as indicated, then click Next. You will be taken to the next sign-up page 5. Create a [facility] ID. This will be your [facility] login ID and cannot be changed, so think of one that is secure and easy to remember. 6. Create a [facility] password. You can change your password at any time. 7. Enter your Security Question and Answer. This can be used at a later time if you forget your password. Click Next. 8. Enter your e-mail address. You will receive e-mail notification when new information is availablein [facility]. 9. Click Sign In. You can now view your medical record. Additional Information If you have questions, you can call [phone] to talk to our [facility] staff. Remember, [facility] is NOT to be used for urgent needs. For medical emergencies, dial 911. documented in this encounter Progress Notes Airas Calle PA-C - 09/03/2013 10:35 PM CDT Subjective: Gloria Bonilla is a 57 y.o. female who follows up regarding left knee DJD and right foot. She is aprevious patient of mine and was last seen on June 29, 2013. She's previously undergone cortisone injections to her right knee by Dr. Jim Maria and has tried Visco supplementation as well as cortisone injection. she's having increasing pain in her left knee and wishes to consider treatment options.She denies any new trauma. She's also having continued symptoms in her right foot. Her primary complaint of pain is along the fourth and fifth metatarsal. Previously she's been seen in undergone a third TMT injection which gave her 100% pain relief unfortunately he was only for about one month. She is in clinic today for further evaluation and discussion about treatment options. Objective: Bilateral knee exam demonstrates left knee skin is cool touch she is tenderness palpation about thatof the lateral joint line. Mild effusion is noted. Calves are supple and nontender. She is a 2+ pedal pulse. Ligaments are stable Right foot exam demonstrates skin is cool touch she is tenderness about that of the third TMT joint.She also has point tenderness in the fourth and fifth metatarsal bases and proximal shaft of the fifth metatarsal. Full range of motion of ankle, subtalar, and transverse tarsal joints are noted. She is a 2+ pedal pulse and is neurovascular intact distally good cap refill. Radiology: X-rays obtained in the left knee is are independent reviewed with patient these demonstrated end-stage arthritis in the lateral compartment X-rays of foot were also obtained and reviewed these demonstrated no evidence of obvious acute bony abnormalities Assessment/Plan: Assessment: Left knee DJD Right lateral midfoot persistent pain Plan: Treatment options were discussed in detail in regards to her left knee I recommended a cortisone injection. We discussed total knee arthroplasty as well as Visco supplementation. In regards to her right foot I recommended she proceed with that of the third TMT injection under fluoroscopy. She had a very successful injection previously unfortunately did not last very long I liketo try this again and see if she gets for pain relief if she only gets partial or minimal pain relief with this further evaluation with a right foot MRI again to rule out a possible Salvador fracture would be appropriate. Patient was satisfied with this we'll follow up with us and was scheduled under fluoroscopy. Procedure: Risks, Alternatives, and potential benefits were discussed, and the patient consents to proceed witha steroid injection. Using asceptic technique and a betadine prep the pt underwent a left knee intra-articular injection. Using a 22 ga needle 9 cc 1% plain Lidocaine and 40 mg of Kenalog. There were no complicatons with the procedure. The patient tolerated the procedure well. The patient noted immediate relief. If the patient experiences any signs of infection which were discussed, they are to contact our office immediately. Patient will follow up prn. This note was dictated using voice recognition software. There may be sound- alike and/or punctuationerrors. documented in this encounter Plan of Treatment Upcoming Encounters Date Type Specialty Care Team Description 12/17/2021 Appointment Physical Therapy Simon Davis, PT [address] [place], [place] [address] (Wo rk) documented as of this encounter Procedures Procedure Name Priority Date/Time Associated Comments Diagnosis XR KNEE RT 1-2 VIEWS Routine 09/03/2013 2:45 PM Knee pain R esults for this COMPARISON CDT procedure are i n the results section. XR KNEE LT 3 VIEWS Routine 09/03/2013 2:45 PM Knee pain Res ults for this CDT procedure are i n the results section. documented in this encounter Results XR Knee Rt 1-2 Views Comparison (09/03/2013 2:45 PM CDT) Anatomical Region Laterality Modality Lower Extremity, Knee Other Specimen (Source) Anatomical Location Collection Method / Collectio n Time Received Time / Laterality Volume Narrative 09/03/2013 2:49 PM CDT COMPARISON: ??None. FINDINGS: ?? Right knee: Minor narrowing medial joint space compartment of the knee with somewhat severe degenerative narrowing of the lateral patellofemoral joint and mild degree periarticular spurring. Left knee: Somewhat severe narrowing of the lateral knee joint compartment and minor narrowing medial knee joint compartment. Tricompartment degenerative spurring changes are present most prominent about the patellofemoral joint and the lateral knee joint compartment. Procedure Note Vaibhav Arceo MD - 08/31/2015Formatti ng of this note might be different from the original. COMPARISON: None. FINDINGS: Right knee: Minor narrowing medial joint space compartment of the knee with somewhat severe degenerative narrowing of the lateral patellofemoral joint and mild degree periarticular spurring. Left knee: Somewhat severe narrowing of the lateral knee joint compartment and minor narrowing medial knee joint compartment. Tricompartment degenerative spurring changes are present most prominent about the patellofemoral joint and the lateral knee joint compartment. Arias ASHLEY GD XR Knee Lt 3 Views (09/03/2013 2:45 PM CDT) Anatomical Region Laterality Modality Lower Extremity, Knee Other Specimen (Source) Anatomical Location Collection Method / Collectio n Time Received Time / Laterality Volume Narrative 09/03/2013 2:49 PM CDT COMPARISON: ??None. FINDINGS: ?? Right knee: Minor narrowing medial joint space compartment of the knee with somewhat severe degenerative narrowing of the lateral patellofemoral joint and mild degree periarticular spurring. Left knee: Somewhat severe narrowing of the lateral knee joint compartment and minor narrowing medial knee joint compartment. Tricompartment degenerative spurring changes are present most prominent about the patellofemoral joint and the lateral knee joint compartment. Procedure Note Vaibhav Arceo MD - 08/31/2015Formatti ng of this note might be different from the original. COMPARISON: None. FINDINGS: Right knee: Minor narrowing medial joint space compartment of the knee with somewhat severe degenerative narrowing of the lateral patellofemoral joint and mild degree periarticular spurring. Left knee: Somewhat severe narrowing of the lateral knee joint compartment and minor narrowing medial knee joint compartment. Tricompartment degenerative spurring changes are present most prominent about the patellofemoral joint and the lateral knee joint compartment. Arias Calle PA-C RAD GD documented in this encounter Visit Diagnoses Diagnosis Knee pain - Primary Pain in joint, lower leg Primary localized osteoarthrosis, lower leg Foot pain, right Pain in limb documented in this encounter Care Teams Subsurface Augmentee Elint Operator Relationship Specialty Start Date End Date Non Pn, Clinician, PCP - General 04/23/13 [place] [address] documented as of this encounter
--- OUTSIDE RECORDS SUMMARY | 2021-12-03 11:18 | XMS_ITS | Encounter Summary ---
:1955 Author Organization [facility] Address [address], [place] [address] Care Team Providers Name Role Phone Non Pn, Clinician MD Primary Care Provider Unavailable Reason for Visit Reason Comments Foot Pain Encounter Details Date Type Department Care Team Description 06/29/2013 Office Visit [facility] Arias Calle, Foot susan n, left [facility] (Primary Dx) [address] [place] [address] [place] [address] [place], [place] [phone] (Wo rk) Social History Tobacco Use Types Packs/Day Years Used Date Smoking Tobacco: Never Assessed Sex Assigned at Date Recorded Not on file documented as of this encounter Progress Notes Arias Calle PA-C - 07/01/2013 9:14 PM CDT Progress Notes signed by Arias Calle PA-C at 07/04/13 0937 Author: Arias Calle PA-C Service: (none) Author Type: Physician Vc++ Developer Filed: 07/04/13 0937 Note Time: 07/02/131515 Status: Signed Simulation Software Engineer: Arias Calle PA-C (Physician Vc++ Developer) NAME: LUDA GARCIA MR#: [id number] CSN: [id number] AUTHENTICATING CLINICIAN: Arias Calle PA-C CONFIRM #: [id number] LOC: 711 CLINIC PROGRESS NOTE DATE OF VISIT: 06/29/2013 : 1955 Ms. Garcia comes in today for re-examination of right forefoot pain and midfoot pain. She is a patient of mine who was last seen on June 22, 2013. Please review my note for past medical history. Shedenies any new traumas, denies any injuries, denies any numbness or tingling. She presents today for persistent pain in right midfoot and forefoot. An MRI was ordered after I spoke with her on the telephone, as her symptoms have worsened since her last visit. EXAM: Demonstrates right forefoot skin is cool to touch. There is no edema present. She has tenderness to palpation with that at the base of the 5th metatarsal again, as well as over the TMT joints. She has full range of motion throughout her ankle, subtalar and transverse tarsal joints. All tendons are intact with 5/5 strength. Calves are supple and nontender. She has 2+ pedal pulse. MRI films, as well as report, were reviewed independently with the patient. These demonstrated 3th, 4th and 5th TMT DJD. No evidence of obvious stress fractures are appreciated. IMPRESSION: Right midfoot tarsometatarsal, degenerative joint disease. PLANS: Risks, alternatives, and benefits of conservative versus surgical management was discussed in detail. At this time we will proceed with that of a 3rd and 4th TMT injection under fluoroscopy. We will goahead and proceed with this at her convenience. She will follow up with me on telephone 10 days later, and see if she has improved with this. The patient will be satisfied with this. All questions answered. DIAGNOSIS: Midfoot degenerative joint disease. LEVEL OF SERVICE: Established level 3. JCS:MEDQ C: R:07/02/13 09:28 CONFIRM#:[id number] documented in this encounter Plan of Treatment Upcoming Encounters Date Type Specialty Care Team Description 12/17/2021 Appointment Physical Therapy Simon Davis, PT [address] [place], [place] [address] (Wo rk) documented as of this encounter Visit Diagnoses Diagnosis Foot pain, left - Primary Pain in limb documented in this encounter Care Teams Fisher Net Relationship Specialty Start Date End Date Non Pn, Clinician, PCP - General 04/23/13 [place] [address] documented as of this encounter
--- OUTSIDE RECORDS SUMMARY | 2021-12-03 11:18 | XMS_ITS | Encounter Summary ---
:1955 [facility] Address [address], [place] [address] Care Team Providers Name Role Phone Unavailable Primary Care Provider Unavailable Encounter Details Date Type Department Care Team Description 03/14/1989 PN Conversion Only CONVEYOR CONSOLE OPERATOR [address] [place] [address] Social History Tobacco Use Types Packs/Day Years Used Date Smoking Tobacco: Never Assessed Sex Assigned at Date Recorded Not on file documented as of this encounter Progress Notes Josie Amaral MD - 07/20/2001 12:01 AM CDT Progress Notes signed by Josie Amaral MD at 08/15/01 0937 Author: Josie Amaral MD Service: (none) Author Type: Physician Filed: 03/14/89 0000 Note Time: 07/20/01 0001 Status: Signed Assembler Leather Goods: Josie Amaral MD (Physician) PHONE CALL: Patient has 25-49 white cells and 5-9 red cells with trace estrace, but negative culture. We will repeat UA/UC and followup with this. PZD:[id number] C: DOCUMENT: [id number] documented in this encounter Plan of Treatment Upcoming Encounters Date Type Specialty Care Team Description 12/17/2021 Appointment Physical Therapy Simon Davis, PT [address] [place], [place] [address] (Wo rk) documented as of this encounter Visit Diagnoses Not on filedocumented in this encounter
--- OUTSIDE RECORDS SUMMARY | 2021-12-03 11:18 | XMS_ITS | Encounter Summary ---
:1955 Author Organization [facility] Address [address] [place] [address] Care Team Providers Name Role Phone Non Pn, Clinician MD Primary Care Provider Unavailable Reason for Visit Reason Comments Questions Encounter Details Date Type Department Care Team Description 11/29/2013 Telephone [facility] [place] Arias Santos PA-C Questions [address] [facility] [place] [address] [place] [address] [phone] (Wo rk) Social History Tobacco Use Types Packs/Day Years Used Date Smoking Tobacco: Never Assessed Sex Assigned at Date Recorded Not on file documented as of this encounter Nursing Notes James Beckman - 11/29/2013 3:59 PM CDT pt would like call back about symptoms on her left hip. she said it has become rather painful after her foot injection. She is wondering if the foot issue is throwing off her gait, and possibly affecting her hip. documented in this encounter Plan of Treatment Upcoming Encounters Date Type Specialty Care Team Description 12/17/2021 Appointment Physical Therapy Simon Davis, PT [address] [place], [place] [address] (Wo rk) documented as of this encounter Visit Diagnoses Not on filedocumented in this encounter Care Teams Cash Register Mechanic Relationship Specialty Start Date End Date Non Pn, Clinician, PCP - General 04/23/13 [place] [address] documented as of this encounter
--- OUTSIDE RECORDS SUMMARY | 2021-12-03 11:18 | XMS_ITS | Encounter Summary ---
:1955 [facility] Address [address], [place] [address] Care Team Providers Name Role Phone Non Pn, Clinician MD Primary Care Provider Unavailable Reason for Visit Reason Comments Phone Call Questions Encounter Details Date Type Department Care Team Description 08/23/2013 Telephone [facility] Arias Calle PA-C Phone Call; Questions CENTER [address] [place] [address] [address] [place], [place] [address] [phone] (Wo rk) Social History Tobacco Use Types Packs/Day Years Used Date Smoking Tobacco: Never Assessed Sex Assigned at Date Recorded Not on file documented as of this encounter Nursing Notes Linnette Ordaz - 08/23/2013 10:51 AM CDT The patient had knee surgery about 8 yrs ago at [facility] orthopedic for meniscus surgery. She would like to speak with you about the possibility of getting an injection. She normally gets injectionsthere but would like to see you for this. The patient is still experiencing pain in her right foot. She is also requesting another injection for her foot please advise. documented in this encounter Plan of Treatment Upcoming Encounters Date Type Specialty Care Team Description 12/17/2021 Appointment Physical Therapy Simon Davis, PT [address] [place], [place] [address] (Wo rk) documented as of this encounter Visit Diagnoses Not on filedocumented in this encounter Care Teams Retort Feeder Ground Bone Relationship Specialty Start Date End Date Non Pn, Clinician, PCP - General 04/23/13 [place] [address] documented as of this encounter
--- OUTSIDE RECORDS SUMMARY | 2021-12-03 11:18 | XMS_ITS | Encounter Summary ---
:1955 Author Organization [facility] Address [address], [place] [address] Care Team Providers Name Role Phone Non Pn, Clinician MD Primary Care Provider Unavailable Reason for Visit Reason Comments HIP PAIN SHOULDER PAIN Encounter Details Date Type Department Care Team Description 12/03/2013 Surgical Consult [facility] Arias Calle, Hip pain (Primary Dx); [facility] Pain in joint, shoulder region; [address] [place] [address] Disorders of bursae and tendons in shoul mary region, unspecified; [place], [place] bursitis [address] [phone] Social History Tobacco Use Types Packs/Day Years [...] Mass Index 35.02 12/03/2013 10:30 AM CDT documented in this encounter Progress Notes Arias Calle PA-C - 12/03/2013 11:01 PM CDT Progress Notes signed by Arias Calle PA-C at 12/10/13 0744 Author: Arias Calle PA-C Service: (none) Author Type: Physician Broach Grinder Filed: 12/10/13 0744 Note Time: 12/04/13 1501 Status: Signed Ecommerce Marketing Specialist: Arias Calle PA-C (Physician Broach Grinder) NAME: LUDA GARCIA MR#: [id number] CSN: [id number] AUTHENTICATING CLINICIAN: Arias Calle PA-C CONFIRM #: [id number] LOC: 711 CLINIC PROGRESS NOTE DATE OF VISIT: 12/03/2013 : 1955 Ms. Garcia in clinic today for examination of left hip and right shoulder. She is a previous patient of mine and was last seen on September 03, 2013, for her left knee and foot. She has had increasing pain in the lateral aspect of her left hip, which is worse over the last 6 months with no specific trauma. Sleeping on it makes it worse and also worse with rest and with getting up from a seated position.She denies any specific trauma. Denies any numbness or tingling. Her pain is located over the left greater trochanteric region. She denies any other injuries. She is also complaining of right shoulder pain, which is worse over the last year with abduction. She denies any specific trauma. She denies any numbness tingling and presents today for further evaluation. She denies any weakness or cervical spine involvement. EXAMINATION: Examination of the left hip today demonstrates skin that is cool to touch. She has full range of motion of bilateral hips, knees, and ankles. All tendons are intact with 5/5 strength. Weightbearing demonstrates point tenderness to palpation of the left trochanteric region. She is nontender to palpation with that of lumbar spine. She has 2+ pedal pulse and is neurovascularly intact to cap refill. Examination of right shoulder demonstrates skin that is cool to touch. She has full range of motion of bilateral shoulders, elbows wrists and hands. Rotator cuff is intact, although exercise isolating the supra- and infraspinatus elicits increasing symptoms and reproduces her symptoms. No instability is appreciated. She has full range of motion of cervical spine, elbow, wrist, and hand. She has a 2+ radial pulses and neurovascularly intact to cap refill. X-RAYS: Reviewed today. IMPRESSION: 1. Left trochanteric bursitis. 2. Right rotator cuff tendinitis. PLAN: Risks, alternatives, and benefits to conservative management were discussed in detail. After a lengthy discussion regarding this, she wishes to proceed with that of a corticosteroid injection to her left greater trochanteric region, as well as in her right subacromial region. Risks, alternatives and benefits to conservative versus surgical management were discussed in detail. After a lengthy discussion regarding this, the patient wishes to proceed with a left hip trochanteric bursa injection. Using aseptic technique and Betadine prep, patient underwent a cortisone injection using 5 mL of 1% plain lidocaine and 40 mg of Kenalog using a 22-gauge needle. The patient was injected over the pointof maximal tenderness over the left greater trochanteric region using aseptic technique. The patienttolerated this well, and will follow up with me in 6 weeks. Noted she noticed 100% pain relief. Risks, alternatives, and benefits to a subacromial injection were discussed in detail. The patient wishes to proceed with this. Using aseptic technique and Betadine prep, patient underwent a cortisone injection using 9 mL of Lidocaine and 40 mg of Kenalog in the subacromial space. They noted immediate relief. Rotator cuff strength was improved post injection. Patient will follow up with me in about 6 to 8 weeks' time for reexamination. If they have any problems or complications, return to clinic sooner. Total time spent with patient is 20 minutes' time, of which 15 minutes' time spent counseling. JCS:MEDQ C: R:12/04/13 07:01 CONFIRM#:[id number] documented in this encounter Plan of Treatment Upcoming Encounters Date Type Specialty Care Team Description 12/17/2021 Appointment Physical Therapy Simon Davis, PT [address] [place], [place] [address] (Wo rk) documented as of this encounter Visit Diagnoses Diagnosis Hip pain - Primary Pain in joint, pelvic region and thigh Pain in joint, shoulder region Disorders of bursae and tendons in shoul mary region, unspecified Trochanteric bursitis Enthesopathy of hip region documented in this encounter Care Teams Product Marketing Director Relationship Specialty Start Date End Date Non Pn, Clinician, PCP - General 04/23/13 [place] [address] documented as of this encounter
--- OUTSIDE RECORDS SUMMARY | 2021-12-03 11:18 | XMS_ITS | Encounter Summary ---
:1955 [facility] Address [address], [place] [address] Care Team Providers Name Role Phone Non Pn, Clinician MD Primary Care Provider Unavailable Reason for Visit Reason Comments Foot Pain Encounter Details Date Type Department Care Team Description 06/22/2013 Office Visit [facility] Arias Calle, Foot fra cture, right [facility] (Primary Dx) [address] [place] [address] [place] [address] [address] [place], [place] [phone] (Wo rk) Social History Tobacco Use Types Packs/Day Years Used Date Smoking Tobacco: Never Assessed Sex Assigned at Date Recorded Not on file documented as of this encounter Progress Notes Arias Calle PA-C - 06/22/2013 12:23 PM CDT Subjective: Gloria Bonilla is a 57 y.o. female who follows up regarding right fifth metatarsal pain. She was last seen on April 27, 2013 please use my note for past medical history. She denies any changes buthas improved the cam boot she denies any new traumas. Denies any numbness staining. She presents today for routine followup states overall she is improved was still some symptoms and her fifth metatarsal shaft. Objective: Bilateral foot exam demonstrates mild tenderness palpation over the dorsal aspect of the midshaft ofthe right fifth metatarsal. She is full range of motion her ankle, subtalar, and transverse tarsal joints. All tendons are intact 5/5 strength. She has 2+ pedal pulse and is nervous intact distally good cap refill. Radiology: X-rays were obtained today and independently reviewed with patient these demonstrated no evidence ofobvious acute bony abnormalities. Assessment/Plan: Assessment: Right fifth metatarsal pain with continued mild symptoms Plan: At this time patient is to continue with the cam boot the majority today slowly wean out of the cam boot and a stiff soled shoes. She'll work on gentle range of motion exercises and follow up with me if she still having symptoms. If she doesn't improve further evaluation with an MRI might be of some benefit. All questions were answered. This note was dictated using voice recognition software. There may be sound- alike and/or punctuationerrors. documented in this encounter Plan of Treatment Upcoming Encounters Date Type Specialty Care Team Description 12/17/2021 Appointment Physical Therapy Simon Davis, PT [address] [place], [place] [address] (Wo rk) documented as of this encounter Visit Diagnoses Diagnosis Foot fracture, right - Primary Closed fracture of unspecified bone(s) o f foot (except toes) documented in this encounter Care Teams Fur Operator Relationship Specialty Start Date End Date Non Pn, Clinician, PCP - General 04/23/13 [place] [address] documented as of this encounter
[2021-12-03 18:04] LABS: Erythrocyte SedimentationRate* 32 mm/hr (2-20)
[2021-12-04 12:49] LABS: C Reactive Protein* 1.1 mg/dL (0.5-1.0)
== END 2021-12-03 16:34 | disposition home or self-care (01) ==
PROVIDERS: PCP Family Medicine; Visit Provider Family Medicine
DX: M31.6 Other giant cell arteritis (principal)
CPT/HCPCS: 85651; 86140

== ENCOUNTER 2022-04-26 11:01 | Outpatient (CLI) | payer MEDICARE, SELFPAY ==
[2022-04-26 17:31] LABS: Chloride* 100 mmol/L (96-114)
[2022-04-26 17:32] LABS: Potassium* 4.4 mmol/L (3.6-5.1); Sodium* 137 mmol/L (135-149)
[2022-04-26 17:34] LABS: Blood Urea Nitrogen* 25 mg/dL (7-30); Carbon Dioxide* 28 mmol/L (20-32); Cholesterol* 203 mg/dL (90-199); Creatinine* 0.5 mg/dL (0.5-1.5); Estimated Glomerular Filt Rate 104 ml/min
[2022-04-26 17:35] LABS: Calcium* 9.5 mg/dL (8.4-10.6); Glucose* 164 mg/dL (60-115); HDL Cholesterol* 48 mg/dL (>=50); LDL Cholesterol Calculated 91 mg/dL (<100); Triglycerides* 318 mg/dL (40-149)
[2022-04-26 18:55] LABS: Erythrocyte SedimentationRate* 80 mm/hr (2-20)
== END 2022-04-26 11:02 | disposition home or self-care (01) ==
PROVIDERS: PCP Family Medicine; Visit Provider Family Medicine
DX: E78.5 Hyperlipidemia, unspecified (principal); I10 Essential (primary) hypertension; M35.3 Polymyalgia rheumatica; Z13.29 Encounter for screening for other suspected endocrine disorder
CPT/HCPCS: 80048; 80061; 84443; 85651

== ENCOUNTER 2022-07-09 10:55 | Outpatient (CLI) | payer MEDICARE, SELFPAY | END 2022-07-09 10:56 | disposition home or self-care (01) | LOC: NFLDREF 07-13 08:56 | PROVIDERS: PCP Family Medicine; Referring Provider Family Medicine; Visit Provider Family Medicine | DX: R10.9 Unspecified abdominal pain (principal); Z13.89 Encounter for screening for other disorder | CPT/HCPCS: 87086; 87186 ==

== ENCOUNTER 2022-07-12 10:55 | Outpatient (CLI) | payer MEDICARE, SELFPAY ==
--- OUTSIDE RECORDS SUMMARY | 2022-07-13 12:27 | XMS_ITS | Continuity of Care Document ---
Author Name Unknown Organization [facility] Address [address] [address] [place] [address] Phone Care Team Providers Care Manager Clinical Pharmacy Name Role Phone Sebas Hatfield MD Unavailable Unavailable Allergies, Adverse Reactions, Alerts Substance Reaction Status Criticality No Known allergies Medications Medication Instructions Dosage Effective Dates (start - stop) Status Comments prednisone 5 mg tablet take 1 (0.5MG/KG) by ORAL route in morning and 4 mg at night - Active propranolol ER 60 mg capsule,24 hr,extended release take 2 capsule by oral route every day 120 MG - Active Effexor XR 150 mg capsule,extended release take 1 capsule by oral route every day 150 MG - Active aspirin 81 mg tablet,delayed release take 1 tablet by oral route every day 81 MG - Active MiralaxBisacodylMagCit Colon Prep Use as directed - No Longer Active Procedures Procedure Date Colonoscopy Flex; Dx (nov Pro) 15 Advance Directives Directive Yes / No Effective Date File Name No Information Encounters Encounter Description Practice Location Reason(s) For Visit Diagnoses Date Provider Providers Copied on Encounter [facility], [address] [address], [place], [id number], [place] tel:[phone] [place] [facility] HemorrhoidsColon Cancer ScreeningHemorrh oids [address] Liu M[address]. [address] [facility], [place], [id number] , [place]. tel: [phone] [facility], [address] [address], [place], [id number], [place] tel:[phone] [facility] External Referral 5 Link MD Xiao. [address] [facility], [place], [id number] , [place]. tel: [phone] Family History Family Member Type Diagnosis Age At Onset Father Problem (finding) Father Problem (finding) peptic ulceration Daughter Problem (finding) Alive and well Mother Problem (finding) Thyroid disorder Mother Problem (finding) Sister Problem (finding) Alive and well Brother Problem (finding) Alive and well Payers Payer name Insurance type Covered democrat ID Authoriza [email or web address](s) No Information Social History Type Description Quantity Date Captured Comments Alcohol Use Details Unknown Caffeine Use Details Unknown Tobacco Use Status No Information Smoking Status Never smoker Sex Female Vital Signs Date / Time: Height Weight BMI Pulse Rate Blood Pressure Temperature Respiratory Rate Body Surface Area Head Circumference Head Circ. Percentile Wt./Waldo. Percentile BMI percentile Pulse Ox Inhaled Ox 8:38 AM 70.00 in 99.770 kg (220.00 lbs) 31.6 0 kg/m eter (2) 79 /min 129/85 mm[Hg] 0.00 F 16 /min 96 % Chief Complaint And Reason For Visit No Information Reason For Referral Reason For Referral No Information Plan Of Treatment Date Type Action Status No Information History Of Present Illness Encounter Date Complaint History Of Prese nt Illness No Information Functional Status Date Functional Assessmen t No Information Instructions Date Instruction Additional Infor mation High Fiber Diet Related to Hemor rhoids Colon Cancer Prevention Related to Hemorrhoids Hemorrhoids Related to Hemor rhoids Hemorrhoid Banding Related to He morrhoids Assessments Type Assessment Date assessment Hemorrhoids Patient Care Teams Name Effective Dates (start - stop) Status Members No Information
== END 2022-07-12 10:56 | disposition home or self-care (01) ==
LOC: NFLDREF 07-13 10:34
PROVIDERS: PCP Family Medicine; Referring Provider Family Medicine; Visit Provider Family Medicine
DX: E13.9 Other specified diabetes mellitus without complications (principal); R10.9 Unspecified abdominal pain; M35.3 Polymyalgia rheumatica
CPT/HCPCS: 85651; 87086; 87186

== ENCOUNTER 2022-12-20 11:02 | Outpatient (CLI) | payer MEDICARE, SELFPAY | END 2022-12-20 11:03 | disposition home or self-care (01) | PROVIDERS: PCP Family Medicine; Visit Provider Family Medicine | DX: Z01.818 Encounter for other preprocedural examination (principal); E13.9 Other specified diabetes mellitus without complications; D64.9 Anemia, unspecified; M35.3 Polymyalgia rheumatica; I10 Essential (primary) hypertension | CPT/HCPCS: 80048; 83036 ==

== ENCOUNTER 2023-10-31 10:12 | Outpatient (CLI) | payer MEDICARE, SELFPAY ==
--- OUTSIDE RECORDS SUMMARY | 2023-10-31 10:17 | XMS_ITS | Encounter Summary ---
Author Organization [place] Address [address] [facility] [place] [address] Care Team Providers Care Loop Drier Operator Name Role Phone Vincenzo Grimaldo MD Primary Care Provider [phone] Arias Salvador MD Primary Care Provider [phone] No Ref-Primary, Physician Primary Care Provider Jennifer Gastelum MD Unavailable [phone] Reason for Visit * Reason Onset Date Comments Refill Request 04/07/2010 Tramadol Encounter Details Date Type Department Care Team (Late st Contact Info) Description 04/07/[address] [place] [address] Vincenzo Grimaldo MD [address] [place], [place] [id number] Refill Request (Tramadol) Social History Tobacco Use Types Packs/Day Years Used Date Smoking Tobacco: Never Alcohol Use Standard Drinks/Week Comments Yes 0 (1 standard drink = 0.6 oz pur e alcohol) 4-5 glasses of wine a week Sex and Gender Information Value Date Recorded Sex Assigned at Not on file Gender Identity Not on file Sexual Orientation Not on file documented as of this encounter Miscellaneous Notes * Telephone Encounter - Gloria Figueroa - 04/07/2010 5:29 PM CST Pharm RF request for Tramadol. Last filled 01/14/10. 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 documented in this encounter Plan of Treatment Not on file documented as of this encounter Visit Diagnoses Diagnosis Cervicalgia Headache(784.0) Headache documented in this encounter Care Teams Loop Drier Operator Relationship Specialty Start Date End Date Vincenzo Grimaldo MD PCP - General 07/07/07 02/24/14 Arias Salvador MD [facility] [address] [place] [address] PCP - General 02/25/14 04/28/17 No Ref-Primary, Physician PCP - General 04/29/17 Jennifer Gastelum MD [address] [place] [address] [address] [place] [address] Assigned Surgical Provider 11/21/21 documented as of this encounter
--- OUTSIDE RECORDS SUMMARY | 2023-10-31 10:17 | XMS_ITS | Encounter Summary ---
Author Organization [place] Address [address] [place] [address] Care Team Providers Care Assistant Professor Of Communication Name Role Phone Vincenzo Grimaldo MD Primary Care Provider [phone] Arias Salvador MD Primary Care Provider [phone] No Ref-Primary, Physician Primary Care Provider Jennifer Gastelum MD Unavailable [phone] Reason for Visit * Reason Onset Date Comments Patient Request 09/20/2008 question Encounter Details Date Type Department Care Team (Late st Contact Info) Description 07/23/2008 [facility] Medical Advice [address] [place] [address] Vincenzo Grimaldo MD [address] [place], [place] [address] Patient Request (question) Social History Tobacco Use Types Packs/Day Years Used Date Smoking Tobacco: Never Alcohol Use Standard Drinks/Week Comments Yes 0 (1 standard drink = 0.6 oz pur e alcohol) 5-6 glasses of wine a week Sex and Gender Information Value Date Recorded Sex Assigned at Not on file Gender Identity Not on file Sexual Orientation Not on file documented as of this encounter Plan of Treatment Not on file documented as of this encounter Visit Diagnoses Not on filedocumented in this encounter Care Teams Assistant Professor Of Communication Relationship Specialty Start Date End Date Vincenzo Grimaldo MD PCP - General 07/07/07 02/24/14 Arias Salvador MD [facility] [address] [place] [address] PCP - General 02/25/14 04/28/17 No Ref-Primary, Physician PCP - General 04/29/17 Jennifer Gastelum MD [address] [place] [address] Assigned Surgical Provider 11/21/21 documented as of this encounter
--- OUTSIDE RECORDS SUMMARY | 2023-10-31 10:17 | XMS_ITS | Referral Summary ---
Author Organization [facility] Address [address] [place] [address] Care Team Providers Care General Operations Manager Name Role Phone No Ref-Primary, Physician Primary Care Provider Encounters Date Type Department Care Team Description 10/23/2023 Travel 10/23/2023 1:09 PM CDT - 10/23/2023 3:03 PM CDT Emergency [facility] [address] [place] [address] John Salas MD Closed fracture of one rib of right side, initial encounter; Contusion of right shoulder, initial encounter Discharge Disposition: Home or Self Care from Last 3 Months Allergies No known active allergies Medications Medication Sig Dispensed Refills Start Date End Date Status triamterene-hydroc hlorothiazide (MAXZIDE-25) 37.5-25 MG per tabletIndications: Edema Take 1 tablet by mouth daily as needed. 90 tablet 3 07/30/2011 Active venlafaxine (EFFEXOR-XR) 75 MG 24 hr capsuleIndications :Flushing Take 1 capsule by mouth daily. 90 capsule 1 03/21/2012 Active venlafaxine (EFFEXOR-ER) 150 MG TB24 24 hr tablet Take 150 mg by mouth daily (with breakfast) With 75 mg to total 225 mg. Active Vitamin D (Cholecalciferol) 50 MCG (1999 UT) CAPS Take 4,000 Units by mouth daily Active DiphenhydrAMINE HCl (BENADRYL PO) Take 50 mg by mouth nightly as needed Active B Complex-C (SUPER B COMPLEX PO) Take 1 tablet by mouth daily Active MULTIPLE VITAMINS/IRON PO Take 1 tablet by mouth daily Active propranolol (INDERAL LA) 120 MG 24 hr capsule Take 120 mg by mouth daily Active zinc gluconate 50 MG tablet Take 50 mg by mouth daily Active magnesium 250 MG tablet Take 1 tablet by mouth daily Active atorvastatin (LIPITOR) 20 MG tablet Take 20 mg by mouth daily Active furosemide (LASIX) 40 MG tablet Take 40 mg by mouth daily Active SUMAtriptan (IMITREX) 50 MG tablet Take 50 mg by mouth at onset of headache for migraine May repeat dose once in 2 hours if migraine is unresolved. Do not exceed 200mg Active metFORMIN (GLUCOPHAGE) 1000 MG tablet Take 1,000 mg by mouth daily Active oxyCODONE (ROXICODONE) 5 MG tablet Take 5 mg by mouth every 6 hours as needed for severe pain (7-10) Active tiZANidine (ZANAFLEX) 4 MG tablet Take 2-4 mg by mouth every 8 hours as needed for muscle spasms Active Multiple Vitamins-Minerals (PRESERVISION AREDS 2) CAPS Take 2 capsules by mouth daily Active acetaminophen (TYLENOL) 325 MG tabletIndications: Compression fracture of T12 vertebra with routine healing, subsequent encounter,Acute midline low back pain without sciatica Take 2 tablets (650 mg) by mouth 3 times daily (with meals) Over the counter medication 0 02/14/2022 Active Lidocaine (LIDOCARE) 4 % PatchIndications:C ompression fracture of T12 vertebra with routine healing, subsequent encounter,Acute midline low back pain without sciatica Place 2 patches onto the skin every 24 hours To prevent lidocaine toxicity, patient should be patch free for 12 hrs daily. Future refills if needed to primary clinic provider or spine surgeon 15 patch 1 02/14/2022 Active senna-docusate (SENOKOT-S/PERICOL CORY) 8.6-50 MG tabletIndications: Constipation, unspecified constipation type Take 1 tablet by mouth 2 times daily as needed for constipation 30 tablet 02/14/2022 Active ondansetron (ZOFRAN ODT) 4 MG ODT tab Take 1 tablet (4 mg) by mouth every 8 hours as needed for nausea or vomiting 10 tablet 10/23/2023 Active oxyCODONE (ROXICODONE) 5 MG tablet Take 1 tablet (5 mg) by mouth every 6 hours as needed for pain 12 tablet 10/23/2023 Active Problems Problem Noted Date Diagnosed Date S/P total knee arthroplasty 08/15/2017 VINCE (generalized anxiety disorder) 12/08/2011 CARDIOVASCULAR SCREENING; LDL GOAL LESS THAN 160 01/11/2010 Insomnia 08/22/2009 Overweight 07/12/2008 Thoracic or lumbosacral neur itis or radiculitis, unspecified 12/08/2004 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 Provider to review Resolved Problems Problem Noted Date Diagnosed Date Resolved Date Neck pain 12/26/2009 04/11/2010 IAMTEAR LAT MENISC KNEE-CURRENT 05/24/2005 06/28/2005 IAMPOSTSURGICAL STATES NEC 05/24/2005 0 06/28/2005 Immunizations Name Administration Dates Next Due Influenza (IIV3) PF 12/26/2010 TDAP Vaccine (Adacel) 08/22/2009 Social History Tobacco Use Types Packs/Day Years Used Date Smoking Tobacco: Never Smokeless Tobacco: Never Alcohol Use Standard Drinks/Week Comments Yes 0 (1 standard drink = 0.6 oz pur e alcohol) 4-5 glasses of wine a week PHQ-2 Answer Date Recorded PHQ-2 Score 0 11/11/2021 Adolescent Education Answer Date Record ed Getting School Help Needed Not on file 12/10 Sex and Gender Information Value Date Recorded Sex Assigned at Not on file Gender Identity Not on file Sexual Orientation Not on file Last Filed Vital Signs Vital Sign Reading Time Taken Comments Blood Pressure 123/60 10/23/2023 2:45 PM CDT Pulse 74 10/23/2023 2:45 PM CDT Temperature 36.2 ??C (97.1 ??F) 10/23/2023 12:26 PM C DT Respiratory Rate 20 10/23/2023 12:26 PM CDT Oxygen Saturation 95% 10/23/2023 2:50 PM CDT Inhaled Oxygen Concentration - - Weight 99.8 kg (220 lb) 10/23/2023 12:26 PM CDT Height 177.8 cm (5' 10) 11/11/2021 3:01 PM CDT Body Mass Index 31.57 11/11/2021 3:01 PM CDT Plan of Treatment Not on file Medical Devices Implanted Type Area Stock Worker Device Identifier Shelf Expiration Date Model / Serial / Lot Bone Cement Simplex Full Dose [id number] Implanted:Qty : 1 on 08/15/2017 by Russell Maria MD at [facility] Cement, Bone Left: Knee [employer] 11/12/2019 [id number] 1 / / [id number] Imp Plate Tibial Zim Nexgen Size 5 Implanted:Qty : 1 on 08/15/2017 by Russell Maria MD at [facility] Metallic Hardware/Anc hor Left: Knee [employer] 05/12/2027 [id number] 47-01 / / [id number] Imp Comp Femoral Zim Nexgen H Ps Lt [id number] 1 Implanted:Qty : 1 on 08/15/2017 by Russell Maria MD at [facility] Total Joint Component/In sert Left: Knee [employer] 10/11/2026 [id number] 18-51 / / [id number] Imp Art Surface Zim Nexgen Lps Ef 5-6 10mm [id number] 0 Implanted:Qty : 1 on 08/15/2017 by Russell Maria MD at [facility] Total Joint Component/In sert Left: Knee [employer] 06/11/2025 [id number] 40-10 / / [id number] Imp Comp Patella Zim Nexgen 9.0x35mm Implanted:Qty : 1 on 08/15/2017 by Russell Maria MD at [facility] Total Joint Component/In sert Left: Knee [employer] 05/11/2025-5972-0 65-35 / / [id number] Procedures Procedure Name Priority Date/Time Associated Diagnosis Comments XR RIBS & CHEST RT 3VW STAT 10/23/2023 1:54 PM CDT XR SHOULDER RIGHT G/E 3 VIEWS STAT 10/23/2023 1:53 PM CDT GLUCOSE BY METER Routine 02/14/2022 5:45 AM CHILD CUSTODY EVALUATOR MA DIAGNOSTIC DIGITAL RIGHT Routine 08/13/2011 12:50 PM CDT Abnormal mammogram PAP IMAGED THIN LAYER SCREEN Routine 07/30/2011 5:21 PM CDT Routine general medical examination at a health care facility LIPID REFLEX TO DIRECT LDL PANEL Routine 07/30/2011 2:52 PM CDT Routine general medical examination at a health care facility CARDIOVASCULAR SCREENING; LDL GOAL LESS THAN 160 HC DEXA BONE DENSITY, >=1 SITE, AXIAL SKELETON Routine 07/17/2007 Screening For Osteoporosis ZZ[facility] COLONOSCOPY THRU STOMA, DIAGNOSTIC Routine 03/21/2003 DIAGNOSIS NOT YET DEFINED from Last 3 Months or Most Recently Relevant to Health Maintenance Results * Ribs XR, unilat 3 views + PA chest, right (10/23/2023 1:54 PM CDT) Anatomical Region Laterality Modality Chest Right Digital Radiogra phy 10/23/2023 1:54 PM CDT Impressions 10/23/2023 2:07 PM CDT IMPRESSION: 1. The cardiomediastinal silhouette and pulmonary vasculature appear normal. No infiltrates or effusions. 2. Nondisplaced lateral right seventh rib fracture. There is no evidence of pneumothorax. Narrative 10/23/2023 2:07 PM CDT EXAM: XR RIBS and CHEST RT 3VW LOCATION: [facility] DATE: 10/23/2023 INDICATION: Pain. Fall right lateral chest. COMPARISON: None. Procedure Note Abel Quinones MD - 10/23/2023 EXAM: XR RIBS and CHEST RT 3VW LOCATION: [facility] DATE: 10/23/2023 INDICATION: Pain. Fall right lateral chest. COMPARISON: None. IMPRESSION: 1. The cardiomediastinal silhouette and pulmonary vasculature appearnormal. No infiltrates or effusions. 2. Nondisplaced lateral right seventh rib fracture. There is no evidenceof pneumothorax. John Salas MD [facility] [place] ORDERABLES * XR Shoulder Right G/E 3 Views (10/23/2023 1:53 PM CDT) Anatomical Region Laterality Modality Shoulder, Right Shoulder Right Digital Radiography 10/23/2023 1:53 PM CDT Impressions 10/23/2023 2:07 PM CDT IMPRESSION: Small subacromial enthesophyte. Mild osteoarthrosis of the AC joint. Otherwise negative. No fracture. No subluxation or dislocation. Narrative 10/23/2023 2:07 PM CDT EXAM: XR SHOULDER RIGHT G/E 3 VIEWS LOCATION: [facility] DATE: 10/23/2023 INDICATION: Pain. COMPARISON: None. Procedure Note Abel Quinones MD - 10/23/2023 EXAM: XR SHOULDER RIGHT G/E 3 VIEWS LOCATION: [facility] DATE: 10/23/2023 INDICATION: Pain. COMPARISON: None. IMPRESSION: Small subacromial enthesophyte. Mild osteoarthrosis of the ACjoint. Otherwise negative. No fracture. No subluxation or dislocation. John Salas MD [facility] [place] ORDERABLES * (ABNORMAL) Glucose by meter (02/14/2022 5:45 AM CHILD CUSTODY EVALUATOR) [facility] GLUCOSE BY METER POCT 160(H) 70 - 99 mg/dL 02/14/2022 5:51 AM CHILD CUSTODY EVALUATOR LABORATORY POC Blood, Capillary BLOOD SPECIMEN / Unknown 02/14/2022 5:45 AM CHILD CUSTODY EVALUATOR 02/14/2022 5:51 AM CHILD CUSTODY EVALUATOR [place] [facility] POCT LABORATORY POC [facility] [address] floor, [address] [place] [address], [facility] [phone] * Mammo diagnostic Digital right* (08/13/2011 12:50 PM CDT) Anatomical Region Laterality Modality Breast Right Other 08/13/2011 12:5 0 PM CDT Impressions 08/13/2011 1:47 PM CDT DIAGNOSTIC MAMMOGRAM, RIGHT BREAST, DIGITAL w/CAD ??- August 13, 2011 REASON FOR EXAM: ??Recalled from her recent screening mammogram to evaluate possible developing right breast nodule. No reported clinical breast symptoms. COMPARISON: ??Recent screening mammogram dated 07/30/2011 and older screening mammograms from 2010, 2008 and 2007. FINDINGS: ??Additional right mammographic views today do not substantiate a nodular lesion and I believe the appearance on the recent screening mammogram was caused by summation density IMPRESSION: ??BI-RADS 1, NEGATIVE RIGHT RECOMMENDATION: Screening mammography in one year unless a new clinical issue develops in the interim. Idania Gutierres MD IMG MAMMOGRAPHY JOANIE WILEY * PAP imaged thin layer, screen (07/30/2011 5:21 PM CDT) PAP ANN [facility]ay Report Patient Name: GLORIA BONILLA MR#: [id number] Specimen #: [id number] Collected: 07/30/2011 Received: 08/02/2011 Reported: 08/04/2011 07:45 Ordering Phy(s): IDANIA GUTIERRES SPECIMEN/STAIN PROCESS: Pap imaged thin layer prep screening (Surepath, FocalPoint with guided screening) ? Pap-Cyto x 1, Reflex HPV if ASCUS/NIL (>30 yo) x 1 SOURCE: Cervical, endocervical Pap imaged thin layer prep screening (Surepath, FocalPoint with guided screening) SPECIMEN ADEQUACY: Satisfactory for evaluation. -Transformation zone component present. CYTOLOGIC INTERPRETATION: Negative for Intraepithelial Lesion or Malignancy ? Organism(s): -Fungal organisms morphologically consistent with [place] spp. Electronically signed out by: ALEXANDRE Monge (ASCP) Processed and screened at [facility] [place] CLINICAL HISTORY: Post Menopausal, Previous normal pap Date of Last Pap: 08-22-09, Papanicolaou Test Limitations: ??Cervical cytology is a screening test with limited sensitivity; regular screening is critical for cancer prevention; Pap tests are primarily effective for the diagnosis/preventi on of squamous cell carcinoma, not adenocarcinomas or other cancers. TESTING LAB LOCATION: [facility] [address] [place] ??[address] COLLECTION SITE: Client: ??[facility] Location: HE (Cynthia HOLLOWAY Cytologic material (specimen) 07/30/2011 5:21 PM CDT 08/02/2011 10:30 AM CDT Idania Gutierres MD LAB - OPTIME [facility]INICA L SPECIMEN COPATH * (ABNORMAL) Lipid panel reflex to direct LDL (07/30/2011 2:52 PM CDT) Cholesterol 246(H) 0 - 200 mg/dL [facility] Comment: LDL Cholesterol is the primary guide to therapy. The NCEP recommends further evaluation of: patients with cholesterol greater than 200 mg/dL if additional risk factors are present, cholesterol greater than 240 mg/dL, triglycerides greater than 150 mg/dL, or HDL less than 40 mg/dL. Triglycerides 169(H) 0 - 150 mg/dL [facility] HDL Cholesterol 68 50 - 110 mg/dL [facility] LDL Cholesterol Calculated 144(H) 0 - 129 mg/dL [facility] Comment: LDL Cholesterol is the primary guide to therapy: LDL-cholesterol goal in high risk patients is <100 mg/dL and in very high risk patients is <70 mg/dL. VLDL-Cholesterol 34(H) 0 - 30 mg/dL [facility] Cholesterol/HDL Ratio 3.6 0.0 - 5.0 [facility] Blood specimen (specimen) 07/30/2011 2:52 PM CDT 07/30/2011 2:57 PM CDT Idania Gutierres MD LAB - BLOOD ORDERABL ES Performing Organization Address [facility]/State/ZIP Co de Phone Number [facility] * DEXA,BONE DENSITY,AXIAL SKELETON (07/17/2007) Anatomical Region Laterality Modality Bone Mineral Den sity Impressions 07/17/2007 BONE DENSITOMETRY [facility] July 17, 2007 PATIENT: ??Gloria Bonilla CHART: <[id number]> : ??1955 AGE: ??51 year old SEX: ??female REFERRING PHYSICIAN: ??Idania Gutierres M.D, ?? PROCEDURE: ??Bone density scanning was performed using DEXA technology performed on a W-21 Scanner. ??Reporting is completed in the form of a T-score. ??The T-score represents the standard deviation from peak bone mass based on a young healthy adult. Supervisory Examiner performing scan: ??Chiquita Ward REFERENCE T-SCORES: ? Normal ? Greater than -1.0 ? Osteopenia ?-1.0 to -2.5 ? Osteoporosis ?? Less than -2.5 ? INDICATIONS: ??Family history of osteoporosis CURRENT TREATMENT: ??None listed FINDINGS: ? Lumbar Spine L1-L4: ??Z-score -0.3 ? Left Femoral Neck: ??Z-score 0.8 ? Right Femoral Neck: ??Z-score 0.6 IMPRESSION: Z-scores are ??within expected range for age. Use of T-score is not recommended for assessment of premenopausal women. Recommendations include ensuring adequate Calcium (1000 mg/d) and Vitamin D ( 800 IU/d). Follow up can be considered 3 years after menopause. Daria Gerber M.D. Electronically signed ? Idania Gutierres MD SPECIAL IMAGING STUD IES * COLONOSCOPY (03/21/2003) Impressions Jaqui Nelson - 03/21/2003 00:00 ??Operative Report-[facility] ??AZAR DE LA TORRE () ?? [Entered: interfaces, interfaces (FV Interface) 22:36] ?? : ??57 1st ASS'T: 2nd ASS'T: PRE-OPERATIVE DIAGNOSIS: ??Rectal pain. 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 ??2. ??Otherwise normal colonoscopy. OPERATION: ??Total colonoscopy. INDICATIONS AND JUDGEMENT: ??Gloria Bonilla is 47-year-old woman, whose father had bladder cancer, but had no colorectal cancer, and she is not aware of any colorectal cancer in the family. ??She has pain in the rectum, which last for about one-half hour. ??It wakes her up at night. ??It occurs about three times a month and has carmen worse recently. She was referred for evaluation because of the pain. She is chronically constipated, averaging about a bowel movement once a week, but generally has no trouble from it. OPERATIVE PROCEDURE: ??The patient was brought to the Endoscopy Suite. ??I reviewed her past history with her. ??She states she had twisted bowel at age 9-10, which resolved without surgery, but she almost had to have surgery. ??Her only surgery was wisdom tooth extraction, which was without difficulty. ??She does have some swollen ankles. 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 ALLERGIES: ??She has no allergies. PHYSICAL EXAMINATION: ??Reveals a cooperative, well-developed woman, who appears her stated age. ??Her neck is supple without adenopathy. ??There are no bruits. ??Her chest is clear. ??The heart is regular without murmurs or gallops. ??The abdomen is soft and flat. ??The liver and spleen are nonpalpable. ??The groin examination is negative. Digital rectal exam is unremarkable. ??When I flipped my finger against her levator on either side, I can feel some spasm, and she has a little discomfort. ??I think this reproduces the location of her pain, and I suspect she has proctalgia fugax. PROCEDURE: ??The patient was counseled regarding colonoscopy, including the risk of bleeding and medication effects, and after obtaining informed consent, she was placed in left lateral decubitus position. ??She was sedated with fentanyl 0.1 mg, Versed 1 mg. ??The Olympus video pediatric colonoscope was introduced and advanced into a rather long, loopy colon. ??I made my way to the splenic flexure. ??Here, I ended up giving her another 0.05 mg of fentanyl, an extra 1 mg of Versed for a total of 2 and 0.1. ??The scope was advanced through here with a bit of a push through. ??Finally, I could identify the large sigmoid loop in the right upper quadrant, and with some abdominal pressure to hold this down, I was able to move around the hepatic flexure and into the cecum. The colon was nicely prepared, and a good technical examination was accomplished. ??There was no indication of any significant pathology at all. The scope was removed after suctioning out the rectum. ??The patient tolerated the procedure well, experienced no complications. I will plan to check her again in approximately ten years. ??I reassured her that I thought the diagnosis of her pain was proctalgia fugax, and with the infrequent episodes that she is having, she probably does not need any specific therapy. ??She might be a candidate for calcium channel darrell if the pain increases in frequency. ??I recommended to her that she soak in a hot bathtub and try and if she could to massage the area that hurts when she gets an attack, and maybe that will abort it for her. The patient was counseled not to drive or make important decisions, but otherwise she may resume regular diet and normal activities. [id number] AZAR DE LA TORRE MD MT: Document: [id number] [place], [place] Name: GLORIA BONILLA LCN: ??ENDO DSC: 03/21/2003 [place], [place] Name: MR#: : Procedure Date: GLORIA BONILLA -53 1955 03/21/2003 Doctor: ??AZAR DE LA TORRE MD OPERATIVE REPORT Page 1 of 2 Idania Gutierres MD PROCEDURES from Last 3 Months or Most Recently Relevant to Health Maintenance Advance Directives For more information, please contact: [phone] * Full Code (Latest Code Status on File) Date Activated Date Inactivated Comments 02/13/2022 12:22 AM 02/14/2022 6:34 PM All basic a nd advanced life-sustaining interventions are performed as appropriate Question Answer Comments Code status determined by: Discussion with patie nt/ legal decision maker * Full Code Date Activated Date Inactivated Comments 08/15/2017 2:37 PM 08/18/2017 2:24 PM Care Teams General Operations Manager Relationship Specialty Start Date End Date No Ref-Primary, Physician PCP - General 04/29/17
--- OUTSIDE RECORDS SUMMARY | 2023-10-31 10:17 | XMS_ITS | Clinical Summary ---
Author Organization [place] Address [address] [place] [address] Care Team Providers Care Warp Knitter Name Role Phone No Ref-Primary, Physician Primary Care Provider Allergies No known active allergies Medications Medication [...] mg. Active Vitamin D (Cholecalciferol) 50 MCG (1999) CAPS Take 4,000 Units by mouth daily [...] mention of other manifestation Overview: treated at [facility] Leiomyoma of uterus Overview: Problem list name updated by automated process. Provider to review Resolved Problems Problem Noted Date Diagnosed Date Resolved Date Neck pain 12/26/2009 04/11/2010 IAMTEAR LAT MENISC KNEE-CURRENT 05/24/2005 06/28/2005 IAMPOSTSURGICAL STATES NEC 05/24/2005 0 06/28/2005 Encounters Date Type Department Care Team Description 10/23/2023 1:09 PM CDT - 10/23/2023 3:03 PM CDT Emergency [facility] Emergency Dept [address] [place] [id number] John Salas MD Closed fracture of one rib of right side, initial encounter; Contusion of right shoulder, initial encounter Discharge Disposition: Home or Self Care 10/23/2023 Travel from Last 3 Months Immunizations Name Administration Dates Next Due Influenza (IIV3) PF 12/26/2010 TDAP Vaccine (Adacel) 08/22/2009 Family History Medical History Relation Comments C.A.D. Brother 1 Born 1939, [place] at age 69, also lumbar fusion Family History Negative Brother 2 Born [birth year] 2 C.A.D. Father age 67, [address] [place] in his 20's or 30's (?); had a history of scarlet fever Arthritis Mother age 87, had severe RA Cerebrovascular Disease Mother TIA Family History Negative Sister 1 One at age 2 yo. Thyroid Disease Sister 2 Born 1953, lumba r fusion Thyroid Disease Sister 3 Born 1946, lumba r fusion Hypertension Son 4 2 SONS WITH ENL ARGED VENTRICLE - TREATED BY CARDS AT [facility] Relation Status Comments Brother 1 Brother 2 Father (Age 67) Mother Alive Sister 1 Sister 2 Sister 3 Son 1 Alive age 19 - has an enlarged ventrile and HTN - is on BP medication - followed by cards at [facility] Son 2 Alive age 15 - Has an enlarged ventricle and HTN - is on BP medication - followed by cards at [facility] Son 3 Alive age 22 - healthy [...] OF HM ORDERS 1955 [address] COLONOGRAPHY 1955 FIT 1955 FLEX SIG 1955 sDNA (Cologuard) 1955 HEPATITIS C SCREENING 1974 LIPID 07/29/2012 07/30/2011, 08/12, 07/12/2008, Additional history exists MAMMO SCREENING 10/16/2015 10/15/2013, 03/2011, 07/30/2011, Additional history exists RSV VACCINE ( & 60+) (1 - 1-dose 60+ series) 2016 FALL RISK ASSESSMENT 2021 Pneumococcal Vaccine: 65+ Years (2 of 2 - PCV) 2021 11/05/2013 DEXA 07/16/2022 07/17/2007, 02/28/2006 MEDICARE ANNUAL WELLNESS VISIT 09/17/2022 09/17/2021, 07/30/2011, 08/22/2009, Additional history exists PHQ-2 (once per calendar year) 2023 11/11/2021 COVID-19 Vaccine ( season) 2023 01/05/2023, 07/30/2022, 12/17/2021, Additional history exists DTAP/TDAP/TD IMMUNIZATION (4 - Td or Tdap) 10/03/2023 10/02/2013, 09/24/2013, 08/22/2009 INFLUENZA VACCINE (#1) 2023 3, 01/23/2021, 01/25/2020, Additional history exists GLUCOSE 02/14/2025 02/14/2022, 06/2021, 02/13/2022, Additional history exists COLONOSCOPY 06/12/2026 06/12/2016, 03/21/2003 COLORECTAL CANCER SCREENING 06/12/2026 PAP Discontinued 07/30/2011, 07/12, 08/22/2009, Additional history exists ZOSTER IMMUNIZATION Completed 01/16/2018, 8 HPV IMMUNIZATION Aged Out No longer e ligible based on patient's age to complete this topic IPV IMMUNIZATION Aged Out No longer e ligible based on patient's age to complete this topic MENINGITIS IMMUNIZATION Aged Out No l onger eligible based on patient's age to complete this topic RSV MONOCLONAL ANTIBODY Aged Out No l onger eligible based on patient's age to complete this topic Medical Devices Implanted Type Area Woodworking Machine Operator Device Identifier Shelf Expiration Date Model / Serial / Lot Bone Cement Simplex Full Dose [id number] Implanted:Qty : 1 on 08/15/2017 by Russell Maria MD at [facility] Cement, Bone Left: Knee [employer] 11/12/2019 [id number] 1 / / [id number] Imp Plate Tibial Zim Nexgen Size 5 Implanted:Qty : 1 on 08/15/2017 by Russell Maria MD at [facility] Metallic Hardware/Anc hor Left: Knee [employer] 05/12/2027 00-5980-0 47-01 / / [id number] Imp Comp Femoral Zim Nexgen H Ps Lt [id number] 1 Implanted:Qty : 1 on 08/15/2017 by Russell Maria MD at [facility] Total Joint Component/In sert Left: Knee [employer] 10/11/2026-5996-0 18-51 / / [id number] Imp Art Surface Zim Nexgen Lps Ef 5-6 10mm [id number] 0 Implanted:Qty : 1 on 08/15/2017 by Russell Maria MD at [facility] Total Joint Component/In sert Left: Knee [employer] 06/11/2025-5964-0 40-10 / / [id number] Imp Comp Patella Zim Nexgen 9.0x35mm Implanted:Qty : 1 on 08/15/2017 by Russell Maria MD at [facility] Total Joint Component/In sert Left: Knee [employer] 05/11/2025-5972-0 65-35 / / [id number] Procedures Procedure Name Priority Date/Time Associated Diagnosis Comments XR RIBS & CHEST RT 3VW STAT 10/23/2023 1:54 PM CDT XR SHOULDER RIGHT G/E 3 VIEWS STAT 10/23/2023 1:53 PM CDT GLUCOSE BY METER Routine 02/14/2022 5:45 AM LIVING MANAGER MA DIAGNOSTIC DIGITAL RIGHT Routine 08/13/2011 12:50 [...] XR RIBS and CHEST RT 3VW LOCATION: [facility] DATE: 10/23/2023 INDICATION: Pain. Fall right lateral chest. COMPARISON: None. Procedure Note Abel Quinones MD - 10/23/2023 EXAM: XR RIBS and CHEST RT 3VW LOCATION: [facility] DATE: 10/23/2023 INDICATION: Pain. Fall right lateral chest. COMPARISON: None. IMPRESSION: 1. The cardiomediastinal silhouette and pulmonary vasculature appearnormal. No infiltrates or effusions. 2. Nondisplaced lateral right seventh rib fracture. There is no evidenceof pneumothorax. John Salas MD IMG DIAGNOSTIC IMAGI NG ORDERABLES * XR Shoulder [...] XR SHOULDER RIGHT G/E 3 VIEWS LOCATION: [facility] DATE: 10/23/2023 INDICATION: Pain. COMPARISON: None. Procedure Note Asinger, Abel Brian, MD - 10/23/2023 EXAM: XR SHOULDER RIGHT G/E 3 VIEWS LOCATION: [facility] DATE: 10/23/2023 INDICATION: Pain. COMPARISON: None. IMPRESSION: Small subacromial enthesophyte. Mild osteoarthrosis of the ACjoint. Otherwise negative. No fracture. No subluxation or dislocation. John Salas MD IMG DIAGNOSTIC IMAGI NG ORDERABLES * (ABNORMAL) Glucose by meter (02/14/2022 5:45 AM LIVING MANAGER) GLUCOSE BY METER POCT 160(H) 70 - 99 mg/dL 02/14/2022 5:51 AM LIVING MANAGER LABORATORY POC Blood, Capillary BLOOD SPECIMEN / Unknown 02/14/2022 5:45 AM LIVING MANAGER 02/14/2022 5:51 AM LIVING MANAGER Chilango Ross MD [facility] POCT LABORATORY POC [facility] [address] floor, [address] [place] [address], [facility] [phone] * Mammo diagnostic Digital right* (08/13/2011 12:50 [...] develops in the interim. Idania Gutierres MD IM MAMMOGRAPHY JOANIE WILEY * PAP imaged thin layer, screen (07/30/2011 5:21 PM CDT) PAP ANN COPATH Copath Report Patient Name: GLORIA BONILLA MR#: [id number] Specimen #: [id number] Collected: 07/30/2011 Received: 08/02/2011 Reported: 08/04/2011 07:45 [...] ALEXANDRE Monge (ASCP) Processed and screened at [facility], [facility] CLINICAL HISTORY: Post Menopausal, Previous normal pap Date of Last Pap: 08-22-09, Papanicolaou Test Limitations: ??Cervical cytology is a screening test with limited sensitivity; regular screening is critical for cancer prevention; Pap tests are primarily effective for the diagnosis/preventi on of squamous cell carcinoma, not adenocarcinomas or other cancers. TESTING LAB LOCATION: [address] ??[id number] COLLECTION SITE: Client: ??[facility] Location: [facility] (R) Cytologic material (specimen) 07/30/2011 5:21 PM CDT 08/02/2011 10:30 AM CDT Idania Gutierres MD LAB - OPTIME CLINICA L SPECIMEN Performing Organization Address [facility]/ZIP Co de Phone Number COPATH * (ABNORMAL) Lipid panel reflex to direct LDL (07/30/2011 2:52 PM CDT) Cholesterol 246(H) 0 - 200 mg/dL [facility] Comment: LDL Cholesterol is the primary guide to therapy. The NCEP recommends further evaluation of: patients with cholesterol greater than 200 mg/dL if additional risk factors are present, cholesterol greater than 240 mg/dL, triglycerides greater than 150 mg/dL, or HDL less than 40 mg/dL. Triglycerides 169(H) 0 - 150 mg/dL [facility] HDL Cholesterol 68 50 - 110 mg/dL [facility] LDL Cholesterol Calculated 144(H) 0 - 129 mg/dL [facility] Comment: LDL Cholesterol is the primary guide to therapy: LDL-cholesterol goal in high risk patients is <100 mg/dL and in very high risk patients is <70 mg/dL. VLDL-Cholesterol 34(H) 0 - 30 mg/dL [facility] Cholesterol/HDL Ratio 3.6 0.0 - 5.0 [facility] Blood specimen (specimen) 07/30/2011 2:52 PM CDT 07/30/2011 2:57 PM CDT Idania Gutierres MD LAB - BLOOD ORDERABL ES Performing Organization Address [facility] Co de Phone Number [facility] * DEXA,BONE DENSITY,AXIAL SKELETON (07/17/2007) Anatomical Region Laterality Modality Bone Mineral Den sity Impressions 07/17/2007 BONE DENSITOMETRY [facility] July 17, 2007 PATIENT: ??Gloria Bonilla CHART: <[id number]> : ??1955 AGE: ??51 year old SEX: ??female REFERRING PHYSICIAN: ??Idania Gutierres M.D, ?? PROCEDURE: ??Bone density scanning was performed using DEXA technology performed on a [employer] Scanner. ??Reporting is completed in the form of a T-score. ??The T-score represents the standard deviation from peak bone mass based on a young healthy adult. Receiving Supervisor performing scan: ??Chiquita Ward REFERENCE T-SCORES: ? [...] Impressions Jaqui Nelson - 03/21/2003 00:00 ??Operative Report-FR ??AZAR DE LA TORRE () ?? [Entered: [...] AZAR DE LA TORRE MD MT: Document: [id number] [place], [place] Name: GLORIA BONILLA LCN: ??ENDO DSC: 03/21/2003 [place], [place] Name: MR#: : Procedure Date: GLORIA BONILLA [id number] 1955 03/21/2003 Doctor: ??AZAR DE LA TORRE MD OPERATIVE REPORT Page 1 of 2 Idania Gutierres MD PROCEDURES from Last 3 Months or Most Recently Relevant to Health Maintenance Advance Directives For more information, please contact: [phone] * Full Code (Latest Code Status on File) Date Activated Date Inactivated Comments 02/13/2022 12:22 AM 02/14/2022 6:34 PM All basic a nd advanced life-sustaining interventions are performed as appropriate Question Answer Comments Code status determined by: Discussion with patie nt/ legal decision maker * Full Code Date Activated Date Inactivated Comments 08/15/2017 2:37 PM 08/18/2017 2:24 PM Care Teams Warp Knitter Relationship Specialty Start Date End Date No Ref-Primary, Physician PCP - General 04/29/17
--- OUTSIDE RECORDS SUMMARY | 2023-10-31 10:17 | XMS_ITS | Encounter Summary ---
Author Organization [place] Address [address] [facility] [place] [address] Care Team Providers Care Patternmaker Pressure Cast Name Role Phone No Ref-Primary, Physician Primary Care Provider Reason for Visit * Reason Comments Fall Encounter Details Date Type Department Care Team (Late st Contact Info) Description 10/23/2023 1:09 PM CDT - 10/23/2023 3:03 PM CDT Emergency [facility] Emergency Dept [address] [place] [address] John Salas MD [facility] [address] [place] [address] [place] [id number] Closed fracture of one rib of right side, initial encounter; Contusion of right shoulder, initial encounter Discharge Disposition: Home or Self Care Social History Tobacco Use Types Packs/Day Years [...] (220 lb) 10/23/2023 12:26 PM CDT Height - - Body Mass Index 31.57 11/11/2021 3:01 PM CDT documented in this encounter Discharge Instructions * Discharge Instructions* John Salas MD - 10/23/2023 2:32 PM CDT Discharge Instructions Chest Injury You have been seen today because of a chest injury. You may have contusion (bruise) of the chest ora rib fracture (broken bone). Rib fractures can be hard to see on x-ray, so we cannot always be sure whether your rib is broken or bruised. Fortunately, the treatment of these injuries is usually thesame, and includes pain control and preventing complications. Generally, every Emergency Department visit should have a follow-up clinic visit with either a primary or a specialty clinic/provider. Please follow-up as instructed by your emergency provider today. Return to the Emergency Department if: You become short of breath. You develop a fever over 101.5??F. You pass out or become very weak or pale. You have abdominal (belly) pain that is new or increasing. You cough up blood. You have new symptoms or anything that worries you. Follow-up with your provider: As directed by your provider today. If you are not improved in two weeks. If you need more pain medicine, since we do not refill pain pills through the Emergency Department. Home care instructions: Chest injuries can be painful. You may take an cpoj-bim-ufuiodz pain medication such as Tylenol?? (acetaminophen), Advil?? (ibuprofen), Motrin?? (ibuprofen) or Aleve?? (naproxen). Applying ice packs to the painful area can help your pain. Holding a pillow against your chest can help with pain when you need to move or cough. You may need to rest and avoid lifting particularly in the first few days after your injury. Prevention of pneumonia (lung infection) is also a part of managing chest injuries. Because it can hurt to take deep breaths, you could develop collapsed areas of lung that can develop infection. To prevent this, you need to take ten very deep breaths every hour while you are awake. Sometimes you will be given a device called an incentive spirometer to help with this. You also need to make yourself cough every hour. Rib belts or binders are not generally recommended, since they may increase the risk of pneumonia. If you do use one, use it for only short periods of time. If you were given a prescription for medicine here today, be sure to read all of the information (including the package insert) that comes with your prescription. This will include important information about the medicine, its side effects, and any warnings that you need to know about. The pharmacist who fills the prescription can provide more information and answer questions you may have about the medicine. If you have questions or concerns that the pharmacist cannot address, please call or return to the Emergency Department. Remember that you can always come back to the Emergency Department if you are not able to see your regular provider in the amount of time listed above, if you get any new symptoms, or if there is anything that worries you. Opioid Medication Information You have been given a prescription for an opioid (narcotic) pain medicine and/or have received a pain medicine while here in the Emergency Department. These medicines can make you drowsy or impaired.You must not drive, operate dangerous equipment, or engage in any other dangerous activities while taking these medications. If you drive while taking these medications, you could be arrested for driving under the influence (DUI). Do not drink any alcohol while you are taking these medications. Opioid pain medications can cause addiction. If you have a history of chemical dependency of any type, you are at a higher risk of becoming addicted to pain medications. Only take these prescribed medications to treat your pain when all other options have been tried. Take it for as short a time andas few doses as possible. Store your pain pills in a secure place, as they are frequently stolen and provide a dangerous opportunity for children or visitors in your house to start abusing these powerful medications. We will not replace any lost or stolen medicine. If you do not finish your medication, it is a good idea to get rid of it but please do not flush itdown the toilet. Please dispose of the remaining medication at a local pharmacy or law enforcement facility. The [place] [employer] has additional information on medication disposal: h ttps://www.chicken tender.[facility].ks.us/living-green/vglhksee-ltaegfcp-jsmrthuszfr. Many prescription pain medications contain Tylenol?? (acetaminophen), including Vicodin??, Tylenol #3??, [place]??, Lortab??, and Percocet??. You should not take any extra pills of Tylenol?? if you areusing these prescription medications or you can get very sick. Do not ever take more than 3000 mg of acetaminophen in any 24 hour period. All opioids tend to cause constipation. Drink plenty of water and eat foods that have a lot of fiber, such as fruits, vegetables, prune juice, apple juice and high fiber cereal. Take a laxative if you don???t move your bowels at least every other day. Miralax??, Milk of Magnesia, Colace??, or Senna?? can be used to keep you regular. documented in this encounter Medications at Time of Discharge Medication Sig Dispensed Refills Start Date End Date ondansetron (ZOFRAN ODT) 4 MG ODT tab Take 1 tablet (4 mg) by mouth every 8 hours as needed for nausea or vomiting 10 tablet 10/23/2023 acetaminophen (TYLENOL) 325 MG tabletIndications:Com pression fracture of T12 vertebra with routine healing, subsequent encounter,Acute midline low back pain without sciatica Take 2 tablets (650 mg) by mouth 3 times daily (with meals) Over the counter medication 0 02/14/2022 atorvastatin (LIPITOR) 20 MG tablet Take 20 mg by mouth daily B Complex-C (SUPER B COMPLEX PO) Take 1 tablet by mouth daily DiphenhydrAMINE HCl (BENADRYL PO) Take 50 mg by mouth nightly as needed furosemide (LASIX) 40 MG tablet Take 40 mg by mouth daily Lidocaine (LIDOCARE) 4 % PatchIndications:Comp ression fracture of T12 vertebra with routine healing, subsequent encounter,Acute midline low back pain without sciatica Place 2 patches onto the skin every 24 hours To prevent lidocaine toxicity, patient should be patch free for 12 hrs daily. Future refills if needed to primary clinic provider or spine surgeon 15 patch 1 02/14/2022 magnesium 250 MG tablet Take 1 tablet by mouth daily metFORMIN (GLUCOPHAGE) 1000 MG tablet Take 1,000 mg by mouth daily Multiple Vitamins-Minerals (PRESERVISION AREDS 2) CAPS Take 2 capsules by mouth daily MULTIPLE VITAMINS/IRON PO Take 1 tablet by mouth daily oxyCODONE (ROXICODONE) 5 MG tablet Take 5 mg by mouth every 6 hours as needed for severe pain (7-10) propranolol (INDERAL LA) 120 MG 24 hr capsule Take 120 mg by mouth daily senna-docusate (SENOKOT-S/PERICOLACE ) 8.6-50 MG tabletIndications:Con stipation, unspecified constipation type Take 1 tablet by mouth 2 times daily as needed for constipation 30 tablet 02/14/2022 SUMAtriptan (IMITREX) 50 MG tablet Take 50 mg by mouth at onset of headache for migraine May repeat dose once in 2 hours if migraine is unresolved. Do not exceed 200mg tiZANidine (ZANAFLEX) 4 MG tablet Take 2-4 mg by mouth every 8 hours as needed for muscle spasms triamterene-hydrochlo rothiazide (MAXZIDE-25) 37.5-25 MG per tabletIndications:Demond ma Take 1 tablet by mouth daily as needed. 90 tablet 3 07/30/2011 venlafaxine (EFFEXOR-ER) 150 MG TB24 24 hr tablet Take 150 mg by mouth daily (with breakfast) With 75 mg to total 225 mg. venlafaxine (EFFEXOR-XR) 75 MG 24 hr capsuleIndications:Fl ushing Take 1 capsule by mouth daily. 90 capsule 1 03/21/2012 Vitamin D (Cholecalciferol) 50 MCG (2000 UT) CAPS Take 4,000 Units by mouth daily zinc gluconate 50 MG tablet Take 50 mg by mouth daily oxyCODONE (ROXICODONE) 5 MG tablet Take 1 tablet (5 mg) by mouth every 6 hours as needed for pain 12 tablet 10/23/2023 10/26/2023 documented as of this encounter ED Notes * Mariia Herrera, KIKA - 10/23/2023 2:54 PM CDT Pt speaking to Registration at this time. * Terrance Rudd RN - 10/23/2023 12:27 PM CDT Fell into a boat yesterday, went to [facility], has fractured right wrist, instructed to come to ER for further evaluation of rib pain. * John Salas MD - 10/23/2023 12:19 PM CDT Emergency Department Note History of Present Illness Chief Complaint Fall HPI Gloria Bonilla is a 67 year old female who presents to the ED following a fall. She explains thatlast evening while boarding a boat she lost her footing and fell, landing on her right side. She first presented to [facility] earlier today and Xray imaging confirmed a right wrist fracture. She was then sent to the ED for assessment of her ongoing right shoulder and right sided rib pain. She denies injury elsewhere. No numbness/weakness in the RUE. She denies hitting her head as result of the fall. Nouse of blood thinning medications. 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 Medications Tylenol Lipitor Benadryl Lasix Magnesium Glucophage Roxicodone Inderal Senokot Imitrex Zanaflex Maxzide Effexor Cholecalciferol Zinc Surgical History Past Surgical History: Procedure Laterality Date ARTHROPLASTY KNEE Left 08/15/2017 Procedure: ARTHROPLASTY KNEE; Left total knee arthroplasty ; Surgeon: Russell Maria MD; Location: [facility] OR ARTHROSCOPY KNEE RT/LT 04/14/2005 Left knee meniscus repair BACK SURGERY N/A FOOT SURGERY Right giant cell arthorititis N/A [facility] COLONOSCOPY THRU STOMA, DIAGNOSTIC 03/21/2003 Normal Physical Exam Patient Vitals for the past 24 hrs: BP Temp Temp src Pulse Resp SpO2 Weight 10/23/23 1450 -- -- -- -- -- 95 % -- 10/23/23 1445 123/60 -- -- 74 -- -- -- 10/23/23 1226 139/64 97.1 ??F (36.2 ??C) Temporal 84 20 98 % 99.8 kg (220 lb) Physical Exam VS: Reviewed per above HENT: Mucous membranes moist, no nuchal rigidity EYES: sclera anicteric CV: Rate as noted, regular rhythm. RESP: Effort normal. Breath sounds are normal bilaterally. NEURO: GCS 15, cranial nerves II through XII are intact, 5 out of 5 strength in all 4 extremities, sensation is intact light touch in all 4 extremities MSK: No deformity of the extremities, pain with passive range of motion of the right shoulder. Tenderness of the right lateral chest wall. No flank or abdominal tenderness inferior to this region. Nocrepitance in this region. Right wrist is in a removable splint with some tenderness of the distal forearm. SKIN: Warm and dry Diagnostics Lab Results Labs Ordered and Resulted from Time of ED Arrival to Time of ED Departure - No data to display Imaging Ribs XR, unilat 3 views + PA chest, right Final Result IMPRESSION: 1. The cardiomediastinal silhouette and pulmonary vasculature appear normal. No infiltrates or effusions. 2. Nondisplaced lateral right seventh rib fracture. There is no evidence of pneumothorax. XR Shoulder Right G/E 3 Views Final Result IMPRESSION: Small subacromial enthesophyte. Mild osteoarthrosis of the AC joint. Otherwise negative. No fracture. No subluxation or dislocation. ED Course Medications Administered Medications - No data to display Procedures Procedures Discussion of Management None ED Course ED Course as of 10/23/23 1735 Sun Oct 23, 2023 1315 I obtained history and examined the patient as noted above. 1423 I rechecked the patient and explained findings. Additional Documentation None Medical Decision Making / Diagnosis [facility] Diagnoses: None MIPS None [facility] Gloria Bonilla is a 67 year old female who presents to the ER for evaluation of right shoulder and right lateral chest wall pain after fall yesterday. Vital signs reassuring. On exam she has a splint to the right wrist which was placed by [facility] orthopedics for apparent fracture. She has no signs of neurovascular compromise in right upper extremity but she does have pain with passive rangeof motion of the right shoulder. X-ray does not show fracture or dislocation fortunately. Rib filmsdo reveal a right seventh rib fracture. No evidence of pneumothorax. Discussed pain control with ibuprofen, Tylenol, oxycodone as needed for breakthrough pain control. Return precautions discussed prior to discharge. Primary care follow-up recommended. Patient was discharged with incentive spirometer to prevent atelectasis and pneumonia. Disposition The patient was discharged. Diagnosis ICD-10-CM 1. Closed fracture of one rib of right side, initial encounter S22.31XA 2. Contusion of right shoulder, initial encounter S40.011A Discharge Medications Discharge Medication List as of 10/23/2023 2:37 PM START taking these medications Details ondansetron (ZOFRAN ODT) 4 MG ODT tab Take 1 tablet (4 mg) by mouth every 8 hours as needed for nausea or vomiting, Disp-10 tablet, R-0, E-Prescribe !! oxyCODONE (ROXICODONE) 5 MG tablet Take 1 tablet (5 mg) by mouth every 6 hours as needed for pain, Disp-12 tablet, R-0, E-Prescribe !! - Potential duplicate medications found. Please discuss with provider. Scribe Disclosure: I, [place], am serving as a scribe at 2:07 PM on 10/23/2023 to document services personally performed by John Salas MD based on my observations and the provider's statements to me. John Salas MD 10/23/23 0638 documented in this encounter Plan of Treatment Not on file documented as of this encounter Procedures Procedure Name Priority Date/Time Associated Diagnosis Comments XR RIBS & CHEST RT 3VW STAT 10/23/2023 1:54 PM CDT XR SHOULDER RIGHT G/E 3 VIEWS STAT 10/23/2023 1:53 PM CDT documented in this encounter Results * Ribs XR, unilat 3 views [...] RIBS and CHEST RT 3VW LOCATION: [facility] DATE: 10/23/2023 INDICATION: Pain. Fall right lateral chest. COMPARISON: None. Procedure Note Abel Quinones MD - 10/23/2023 EXAM: XR RIBS and CHEST RT 3VW LOCATION: [facility] DATE: 10/23/2023 INDICATION: Pain. Fall right lateral [...] SHOULDER RIGHT G/E 3 VIEWS LOCATION: [facility] DATE: 10/23/2023 INDICATION: Pain. COMPARISON: None. Procedure Note Abel Quinones MD - 10/23/2023 EXAM: XR SHOULDER RIGHT G/E 3 VIEWS LOCATION: [facility] DATE: 10/23/2023 INDICATION: Pain. COMPARISON: None. IMPRESSION: Small subacromial enthesophyte. Mild osteoarthrosis of the ACjoint. Otherwise negative. No fracture. No subluxation or dislocation. John Salas MD IMG DIAGNOSTIC IMAGI NG ORDERABLES documented in this encounter Visit Diagnoses Diagnosis Closed fracture of one rib of right side, initial encounter Contusion of right shoulder, initial encounter documented in this encounter Care Teams Patternmaker Pressure Cast Relationship Specialty Start Date End Date No Ref-Primary, Physician PCP - General 04/29/17 documented as of this encounter
--- OUTSIDE RECORDS SUMMARY | 2023-10-31 10:17 | XMS_ITS | Encounter Summary ---
Author Organization [place] Address [address] [facility] [place] [address] Care Team Providers Care Camp Director Name Role Phone No Ref-Primary, Physician Primary Care Provider Encounter Details Date Type Department Care Team (Latest Contact Info) Description 10/23/2023 Travel Social History Tobacco Use Types Packs/Day [...] on filedocumented in this encounter Care Teams Camp Director Relationship Specialty Start Date End Date No Ref-Primary, Physician PCP - General 04/29/17 documented as of this encounter
--- OUTSIDE RECORDS SUMMARY | 2023-10-31 10:17 | XMS_ITS | Encounter Summary ---
Author Organization [place] Address [address] [facility] [place] [address] Care Team Providers Care Scleroscope Tester Name Role Phone No Ref-Primary, Physician Primary Care Provider Jennifer Gastelum MD Unavailable [phone] Reason for Visit * Reason Onset Date Comments Appointment 09/25/2021 Sooner appt Encounter Details Date Type Department Care Team (Late st Contact Info) Description 09/25/2021 Telephone [facility] U[facility] [address] [place] [address] Fredrick Velarde MD [address] [id number] Appointment (Sooner appt) Social History Tobacco Use Types Packs/Day Years Used Date Smoking Tobacco: Never Smokeless Tobacco: Never Alcohol Use Standard Drinks/Week Comments Yes 0 (1 standard drink = 0.6 oz pur e alcohol) 4-5 glasses of wine a week Sex and Gender Information Value Date Recorded Sex Assigned at Not on file Gender Identity Not on file Sexual Orientation Not on file COVID-19 Exposure Response Date Recorded In the last 10 days, have yo u been in contact with someone who was confirmed or suspected to have Coronavirus/COVID-19? Unable to assess 09/25/2021 10:23 AM CDT documented as of this encounter Miscellaneous Notes * Telephone Encounter - Lin Franklin CNA - 09/25/2021 10:24 AM CDT [facility] Call Center Phone Message May a detailed message be left on voicemail: yes Reason for Call: Other: Pt was referred by her orthopedic surgeon Dr Nikko Khan. She states since she has had surgery she has not been able to feel her bottom, and she is unable to feel when she has to urinate. She is hoping to see Dr Velarde sooner than her scheduled appt 01/25/22. Please reach out to pt to discuss possible scheduling options. Thanks Action Taken: Other: uro Travel Screening: Not Applicable documented in this encounter Plan of Treatment Not on file documented as of this encounter Visit Diagnoses Not on filedocumented in this encounter Care Teams Scleroscope Tester Relationship Specialty Start Date End Date No Ref-Primary, Physician PCP - General 04/29/17 Jennifer Gastelum MD [address] [place] [address] Assigned Surgical Provider 11/21/21 documented as of this encounter
--- OUTSIDE RECORDS SUMMARY | 2023-10-31 10:17 | XMS_ITS | Encounter Summary ---
Author Organization [place] Address [address] [place] [address] Care Team Providers Care Roll Cleaner Name Role Phone Vincenzo Grimaldo MD Primary Care Provider [phone] Arias Salvador MD Primary Care Provider [phone] No Ref-Primary, Physician Primary Care Provider Jennifer Gastelum MD Unavailable [phone] Encounter Details Date Type Department Care Team (Late st Contact Info) Description 09/10/2009 MyC Medical Advice [address] [place] [address] Vincenzo Grimaldo MD [address] [place] [address] Social History Tobacco Use Types Packs/Day Years [...] on filedocumented in this encounter Care Teams Roll Cleaner Relationship Specialty Start Date End Date Vincenzo Grimaldo MD PCP - General 07/07/07 02/24/14 Arias Salvador MD [facility] [address] [place] [address] PCP - General 02/25/14 04/28/17 No Ref-Primary, Physician PCP - General 04/29/17 Jennifer Gastelum MD [address] [facility] [address] [place] [address] Assigned Surgical Provider 11/21/21 documented as of this encounter
--- OUTSIDE RECORDS SUMMARY | 2023-10-31 10:17 | XMS_ITS | Clinical Summary ---
Author Organization [facility] Address [address] [place] [address] Care Team Providers Care Wet Process Miller Head Name Role Phone Unknown, Md Unavailable Unavailable Clinic, Not Listed Primary Care Provider Unavail able Allergies No known active allergies Medications Medication Sig Dispensed Refills Start Date End Date Status atorvastatin (LIPITOR) 20 mg oral tablet Take 1 tablet (20 mg) by mouth. at bedtime. 07/04/2021 Active furosemide (LASIX) 40 mg oral tablet Take 1 tablet (40 mg) by mouth once daily. 06/15/2021 Active gatifloxacin (ZYMAR) 0.5 % Opht Drop gatifloxacin 0.5 % eye drops Active ketorolac 0.5% (ACULAR) 0.5 % Opht ophthalmic (EYE) solution ketorolac 0.5 % eye drops Active loteprednol etabonate 0.5% (LOTEMAX) 0.5 % Opht ophthalmic (EYE) suspension loteprednol etabonate 0.5 % eye drops,suspension Active metFORMIN (GLUCOPHAGE) 1,000 mg oral tablet Take 1 tablet (1,000 mg) by mouth once daily. 08/05/2021 Active primidone (MYSOLINE) 50 mg oral tablet every 24 (twenty-four) hours. Active triamterene-hydroc hlorothiazide (DYAZIDE) 37.5-25 mg oral capsule triamterene 37.5 mg-hydrochlorothiaz bravo 25 mg capsule TAKE 1 CAPSULE BY MOUTH DAILY 10/03/2020 Active venlafaxine ER (EFFEXOR XR) 150 mg oral extended release tablet 24 HR Take 1 tablet (150 mg) by mouth Daily. Active venlafaxine ER (EFFEXOR XR) 75 mg oral extended release capsule 24 HR venlafaxine ER 75 mg capsule,extended release 24 hr TAKE ONE CAPSULE BY MOUTH DAILY WITH 150MG 10/18/2020 Active vit C/E/Zn/coppr/lutei n/zeaxan (OCUVITE LUTEIN AND ZEAXANTHIN ORAL) PreserVision AREDS-2 Active zinc gluconate 50 mg oral tablet Take 50 mg by mouth Daily. Active cyanocobalamin, vitamin B-12, 2,000 mcg oral Tab Take by mouth once daily. Active VIT D3-FOLIC BVXK-B3-C1-B12 ORAL Take by mouth. Active cholecalciferol, vitamin D3, 25 mcg, 1000 unit, 25 mcg (1,000 unit) oral tablet Take 1 tablet (25 mcg) by mouth once daily. 5000 IU D3 Active multivitamin (CERTAVITE) 18-400 mg-mcg oral tablet Take 1 tablet by mouth once daily. Active propranoloL (INDERAL LA) 120 mg oral extended release capsule 24 HR Take 1 capsule (120 mg) by mouth once daily. 07/22/2022 Active SUMAtriptan succinate (IMITREX) 50 mg oral tablet Take 1 tablet (50 mg) by mouth. 11/22/2021 Active Miscellaneous Medical Supply DJO BGS to use following spine surgery 1 each 08/30/2022 Active calcium carbonate (TUMS) 200 mg calcium (500 mg) oral chew tabIndications:S/P lumbar fusion Chew 1 tablet (500 mg) twice a day. 180 tablet 3 11/22/2022 Active ergocalciferol (VITAMIN D2) 1,250 mcg (50,000 unit) oral capsuleIndications :S/P lumbar fusion Take 1 capsule by oral route 1 time every week. 12 capsule 4 11/22/2022 Active Miscellaneous Medical SupplyIndications: S/P lumbar fusion DJO BGS to use following spine surgery 1 each 11/22/2022 Active methocarbamoL (ROBAXIN) 500 mg oral tablet Take 1 tablet (500 mg) by mouth four times a day as needed. 36 tablet 12/28/2022 Active oxyCODONE, immediate release, (ROXICODONE) 5 mg oral tablet Take 1-2 tablets (5-10 mg) by mouth every 4 (four) hours as needed. 36 tablet 12/28/2022 Active docusate sodium (COLACE) 100 mg oral capsule Take 1 capsule (100 mg) by mouth twice a day as needed. 30 capsule 12/28/2022 Active Magnesium Oxide 250 mg magnesium oral Tab Take 500 mg by mouth once daily. 0 12/28/2022 Active metFORMIN ER (GLUCOPHAGE XR) 500 mg oral extended release tablet 24 HR 01/07/2023 Active ACCU-CHEK GUIDE TEST STRIPS Strip testing strips TEST ONCE DAILY 03/17/2023 Activ e ACCU-CHEK GUIDE GLUCOSE METER meter USE TO TEST 1 TIMES DAILY 03/16/2023 Active OZEMPIC 0.25 mg or 0.5 mg (2 mg/3 mL) SubQ PnIj ADMINISTER 0.5 MG UNDER THE SKIN EVERY WEEK 05/19/2023 Active Active Problems Problem Noted Date Diagnosed Date Pseudoarthrosis of lumbar spine 12/27/2022 Type 2 diabetes mellitus wit hout complication, with long-term current use of insulin 12/27/2022 Degenerative disc disease, lumbar 12/27/2022 Anxiety and depression 10/22/2022 Difficulty sleeping 10/22/2022 Edema 10/22/2022 Excessive daytime sleepiness 10/22/2022 Hyperlipidemia 10/22/2022 Infection due to extended sp ectrum beta-lactamase producing bacteria 10/22/2022 Latent autoimmune diabetes in adults, managed as type 2 10/22/2022 Osteoarthritis of right knee 10/22/2022 Rosacea 10/22/2022 T12 compression fracture 10/22/2022 Tremor 10/22/2022 Optic neuropathy 10/08/2021 Assessment & Plan (10/08/2021 2:28 PM CDT): OCT 10/08/21: (baseline) 102 microns OD, 83 microns OS - superior nerve damage Macula 10/08/21: signs of early macular degeneration, will continue to monitor. Briefly discussed treatment options of both wet and dry macular degeneration. Broken leg 10/08/2021 Assessment & Plan (10/08/2021 2:43 PM CDT): Explained that chronic use of steroids will impact healing and recovery time for acute fractures. 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 She had started a prednisone taper starting [...] production. Patient presents today for NO consult follow [...] up in 6 months Assessment & Plan (10/08/2021 2:52 PM CDT): Patient presents today for NO consult follow [...] up in 6 months Assessment & Plan (09/10/2021 3:48 PM CDT): Assessment: Discussed etiology of disease and risks [...] OCT now - HVF in 1 month Visual field defect 09/10/2021 Assessment & Plan (10/08/2021 2:41 PM CDT): HVF 10/08/21: slightly diminished field of vision in OS, likely compensated by OD Assessment & Plan (09/10/2021 2:27 PM CDT): Visual Field Assessment 07/23/21: OD inferior temporal defect. OS question lens rim artifact vs inferior arcuate defect. Reliability indices normal. Essential tremor 07/20/2021 PMR (polymyalgia rheumatica) 03/31/2015 Assessment & Plan (10/08/2021 2:35 PM CDT): Giant cell arteritis is known to be much more common in the presence of polymyalgia rheumatica. Patient took steroids for about 3 years to manage pain symptoms, Patient does not currently notice any daily symptoms. Chronic hypertension 10/15/2013 Overview (09/10/2021): Hypertension (HTN) Chronic VINCE (generalized anxiety disorder) 12/08/2011 Insomnia 08/22/2009 Obesity 07/12/2008 Thoracic or lumbosacral neur itis or radiculitis, unspecified 12/08/2004 Social History Tobacco Use Types Packs/Day Years Used Date Smoking Tobacco: Never Smokeless Tobacco: Never Tobacco Cessation:Counseling Given: Not Answered Alcohol Use Standard Drinks/Week Comments Yes 0 (1 standard drink = 0.6 oz pur e alcohol) once weekly Sex and Gender Information Value Date Recorded Sex Assigned at Not on file Gender Identity Not on file Sexual Orientation Not on file Last Filed Vital Signs Vital Sign Reading Time Taken Comments Blood Pressure 125/56 12/28/2022 11:33 AM CDT Pulse 75 12/28/2022 11:33 AM CDT Temperature 36.7 ??C (98 ??F) 12/28/2022 11:33 AM CDT Respiratory Rate 18 12/28/2022 11:33 AM CDT Oxygen Saturation 94% 12/28/2022 11:33 AM CDT Inhaled Oxygen Concentration - - Weight 99.8 kg (220 lb) 07/25/2023 2:46 PM CDT Height 177.8 cm (5' 10) 07/25/2023 2:46 PM CDT Body Mass Index 31.57 07/25/2023 2:46 PM CDT Plan of Treatment Health Maintenance Due Date Last Done Comments Eye Exam 1955 Hepatitis C Screening 1955 Medicare Wellness Visit 1955 Microalbumin Q12 Month 1955 Depression Follow-Up (PHQ-9) 1957 Osteoporosis Screening 07/16/2009 07/17/2007 Colonoscopy 03/21/2013 03/21/2003 Pneumococcal 65+ (2 of 2 - PCV) 11/05/2014 4 RSV 60+ Yrs (1 - 1-dose 60+ series) 2016 HgbA1C 08/14/2022 02/13/2022 COVID-19 Vaccine (2022-2 4 season) 2022 07/30/2022, 12/17/2021, 07/06/2021, Additional history exists Mammogram Screening 09/26/2023 09/25/2021, 10/15/2013, 09/25/2012, Additional history exists Adult Tetanus Booster 10/03/2023 10/02/2013 , 09/24/2013, 08/22/2009 Influenza Vaccine (#1) 2023 , 01/25/2020, 04/08/2019, Additional history exists Yearly Review of HCD 11/22/2023 11/22/2022 Creatinine 12/28/2023 12/27/2022, 12/0 05/2021, 07/19/2021, Additional history exists Zoster Vaccine Completed 01/16/2018, 10/03/2017 Medical Devices Implanted Type Area Taper Machine Device Identifier Shelf Expiration Date Model / Serial / Lot Putty [place] 5cc - [id number] Implanted:Qty: 1 on 12/27/2022 by Hugo Nunes MD at [facility] Bone N/A: Spine Lumbar [employer] 11/16/2025 [id number] / [id number] / Set Scr Spnl Dia5.5/6mm Cdh - [id number] Implanted:Qty: 2 on 12/27/2022 by Hugo Nunes MD at [facility] Screw/A nchor N/A: Spine Lumbar [employer] [id number] / / Magnetos Putty 5cc Implanted:Qty: 1 on 12/27/2022 by Hugo Nunes MD at [facility] N/A: Spine Lumbar 07/12/2025 [id number] / / [id number] Description:MFTR: [employer] Spacer Ti 6dg 23w [id number] Implanted:Qty: 1 on 12/27/2022 by Hugo Nunes MD at [facility] N/A: Spine Lumbar [employer] 07/06/2030 [id number] / / [id number] Miniplate Small [id number] Implanted:Qty: 1 on 12/27/2022 by Hugo Nunes MD at [facility] N/A: Spine Lumbar [employer] 05/12/2030 [id number] / / [id number] Bone Screw Ls 5.0x40mm Implanted:Qty: 1 on 12/27/2022 by Hugo Nunes MD at [facility] N/A: Spine Lumbar [employer] 01/15/2029 [id number] / / [id number] Screw 5.5/6.0 Sv Ats 5.5x50 Implanted:Qty: 1 on 12/27/2022 by Hugo Nunes MD at [facility] N/A: Spine Lumbar [employer] [id number] / / Procedures Procedure Name Priority Date/Time Associated Diagnosis Comments COMPREHENSIVE METABOLIC PANEL STAT 12/27/2022 6:13 PM CDT from Last 3 Months or Most Recently Relevant to Health Maintenance Results * (ABNORMAL) Comprehensive Metabolic Panel (12/27/2022 6:13 PM CDT) Sodium 135(L) 136 - 145 mmol/L ATELLICA ANALYZER 12/27/2022 6:55 PM CDT [facility] Potassium 4.0 3.4 - 5.1 mmol/L ATELLICA ANALYZER 12/27/2022 6:55 PM CDT [facility] Comment:Interpret with cauti on, specimen slightly hemolyzed. Results may be affected Chloride 99 98 - 108 mmol/L ATELLICA ANALYZER 12/27/2022 6:55 PM CDT [facility] Carbon Dioxide 25 20 - 31 mmol/L ATELLICA ANALYZER 12/27/2022 6:55 PM CDT [facility] BUN (Urea Nitro) 18 9 - 23 mg/dL ATELLICA ANALYZER 12/27/2022 6:55 PM CDT [facility] Creatinine 0.55 0.55 - 1.02 mg/dL ATELLICA ANALYZER 12/27/2022 6:55 PM CDT [facility] Est GFR (CKD-EPI) >60.00 >60.00 mL/min/1. 73m2 ATELLICA ANALYZER 12/27/2022 6:55 PM CDT [facility] Comment:Calculation based on the Chronic Kidney Disease Epidemiology Collaboration (CKD-EPI) equation refit without adjustment for race. Glucose 286(H) 74 - 106 mg/dL ATELLICA ANALYZER 12/27/2022 6:55 PM CDT [facility] Calcium, Serum 9.2 8.7 - 10.4 mg/dL ATELLICA ANALYZER 12/27/2022 6:55 PM CDT [facility] Anion Gap 11.0 0.0 - 15.0 mmol/L ATELLICA ANALYZER 12/27/2022 6:55 PM CDT [facility] Albumin 3.4 3.4 - 5.0 g/dL ATELLICA ANALYZER 12/27/2022 6:55 PM CDT [facility] Bilirubin-Total 0.3 0.3 - 1.2 mg/dL ATELLICA ANALYZER 12/27/2022 6:55 PM CDT [facility] Alkaline Phosphatase 104 46 - 116 U/L ATELLICA ANALYZER 12/27/2022 6:55 PM CDT [facility] Protein Total 6.9 5.7 - 8.2 g/dL ATELLICA ANALYZER 12/27/2022 6:55 PM CDT [facility] AST (SGOT) 66(H) 13 - 40 U/L ATELLICA ANALYZER 12/27/2022 6:55 PM CDT [facility] ALT 72(H) 7 - 40 U/L ATELLICA ANALYZER 12/27/2022 6:55 PM CDT [facility] Blood 12/27/2022 6:13 PM CDT 12/27/2022 6:29 PM CDT Douglas Ndiaye MD CHEMISTRY ORDERABLE [facility] [address] [address] from Last 3 Months or Most Recently Relevant to Health Maintenance Advance Directives For more information, please contact: [phone] * Full Code (Latest Code Status on File) Date Activated Date Inactivated Comments 12/27/2022 3:48 PM 12/28/2022 8:53 PM Question Answer Comments How was code status determined? Physician Giovany rosenberg * Full Code Date Activated Date Inactivated Comments 12/27/2022 5:32 AM 12/27/2022 11:38 AM Question Answer Comments How was code status determined? Physician Giovany rosenberg to confirm in preop Care Teams Wet Process Miller Head Relationship Specialty Start Date End Date Unknown, NO ADDRESS/PHONE/FAX AFFILIATED PCP - Primary Care Clinic 09/21/21 Clinic, Not Listed PCP - General 12/20/22
--- OUTSIDE RECORDS SUMMARY | 2023-10-31 10:17 | XMS_ITS | Clinical Summary ---
[facility] Address [address], [place] [address] Care Team Providers Care Crane Engineer Name Role Phone Clinician, Not Found MD Primary Care Provider Un available Source Comments You are receiving this document as you are listed as the primary care provider,follow-up provider, or the patient has been referred to you for consultation.This is in compliance with the Medicare andPrem[facility] Centercaid EHR Incentive Program,which states Providers who transition their patient to another setting of careor provider of care or refers their patient to another provider of care shouldprovide summary care record for each transition of care or referral. Gynzy Allergies Active Allergy Reactions Criticality Noted Date Comments Meperidine And Related Nausea And Vomiting 11/13 Morphine And Codeine Nausea And Vomiting 2004 Medications Medication Sig Dispensed Refills Start Date End Date Status diphenhydrAMINE (BENADRYL) 25 MG capsuleIndications:Mixed incontinence Take 50 mg by mouth. Active Social History Tobacco Use Types Packs/Day Years Used Date Smoking Tobacco: Never Alcohol Use Standard Drinks/Week Comments No 0 (1 standard drink = 0.6 oz pur e alcohol) Sex and Gender Information Value Date Recorded [...] Weight 109.1 kg (240 lb 9.6 oz) 014 10:30 AM CDT Height 176.5 cm (5' 9.5) 12/03/2013 10 :30 AM CDT Body Mass Index 35.02 12/03/2013 10:30 AM CDT Plan of Treatment Health Maintenance Due Date Last Done Comments Colon Cancer Screening Plan Due 1955 Hep C Screening (Preventive Services) 1955 MTM Covered 1955 Medicare Welcome Visit 1955 Cholesterol 2001 Mammogram 07/29/2012 07/30/2011 Pneumococcal 65+ Yrs (2 - PCV) 2021 11/05/2013 COVID-19 Vaccine (4 - season) 2022 07/06/2021, 08/28/2020, 07/29/2020 DTaP/Tdap/Td (4 - Tdap) 10/03/2023 10/03/19 14, 09/24/2013, 08/22/2009 Influenza (#1) 2023 01/23/2021, 01/12, 01/25/2020, Additional history exists Zoster/Shingles Completed 01/16/2018, 10/03/2017 HepA Aged Out No longer eligi ble based on patient's age to complete this topic HepB Aged Out No longer eligi ble based on patient's age to complete this topic Hib Aged Out No longer eligi ble based on patient's age to complete this topic IPV (Polio) Aged Out No longer eligi ble based on patient's age to complete this topic MCV4 Aged Out No longer eligi ble based on patient's age to complete this topic Care Teams Crane Engineer Relationship Specialty Start Date End Date Clinician, Not Found, MD [facility] [place], [place] [address] PCP - General 04/23/13
--- OUTSIDE RECORDS SUMMARY | 2023-10-31 10:17 | XMS_ITS | Encounter Summary ---
Author Organization [facility] Address [address] [facility] [place] [address] Care Team Providers Care Operation Manager Name Role Phone Vincenzo Grimaldo MD Primary Care Provider [phone] Arias Salvador MD Primary Care Provider [phone] No Ref-Primary, Physician Primary Care Provider Jennifer Gastelum MD Unavailable [phone] Encounter Details Date Type Department Care Team (Late st Contact Info) Description 08/26/2011 MyC Medical Advice [address] [place] [address] Vincenzo Grimaldo MD [address] [place] [address] Social History Tobacco Use Types [...] encounter Miscellaneous Notes * Telephone Encounter - Karishma Moon - 10/04/2011 3:20 PM CDT documented in this encounter Plan of Treatment Not on file documented as of this encounter Visit Diagnoses Not on filedocumented in this encounter Care Teams Operation Manager Relationship Specialty Start Date End Date Vincenzo Grimaldo MD PCP - General 07/07/07 02/24/14 Arias Salvador MD [facility] [address] [place], [place] [id number] PCP - General 02/25/14 04/28/17 No Ref-Primary, Physician PCP - General 04/29/17 Jennifer Gastelum MD [address] [place] [address] [address] [place] [address] Assigned Surgical Provider 11/21/21 documented as of this encounter
--- OUTSIDE RECORDS SUMMARY | 2023-10-31 10:17 | XMS_ITS | Encounter Summary ---
Author Organization [facility] Address [address] [place] [address] Care Team Providers Care Beam Press Operator Name Role Phone Vincenzo Grimaldo MD Primary Care Provider [phone] Arias Salvador MD Primary Care Provider [phone] No Ref-Primary, Physician Primary Care Provider Jennifer Gastelum MD Unavailable [phone] Encounter Details Date Type Department Care Team (Late st Contact Info) Description 07/27/2007 MyC Medical Advice [address] [place] [address] Vincenzo Grimaldo MD [address] [place] [address] Social History Tobacco Use Types [...] on filedocumented in this encounter Care Teams Beam Press Operator Relationship Specialty Start Date End Date Vincenzo Grimaldo MD PCP - General 07/07/07 02/24/14 Arias Salvador MD [facility] [address] [place] [address] PCP - General 02/25/14 04/28/17 No Ref-Primary, Physician PCP - General 04/29/17 Jennifer Gastelum MD [address] [facility] [address] [place] [address] Assigned Surgical Provider 11/21/21 documented as of this encounter
--- OUTSIDE RECORDS SUMMARY | 2023-10-31 10:17 | XMS_ITS | Encounter Summary ---
Author Organization [facility] Address [address] [place] [address] Care Team Providers Care Dental Manager Name Role Phone No Ref-Primary, Physician Primary Care Provider Jennifer Gastelum MD Unavailable [phone] Encounter Details Date Type Department Care Team (Late st Contact Info) Description 07/26/2017 Orders Only [facility] [address] [place] [address] Russell Maria MD [facility] [address] [place] [address] [place] [phone] Pre-operative laboratory examination (Primary Dx) Social History Tobacco Use Types Packs/Day Years [...] on file documented as of this encounter Results * Methicillin Resist/Sens S. aureus PCR (07/27/2017 9:10 AM CDT) Specimen Description Gavin 07/27/2017 9:15 AM CDT [facility] Methicillin Resist/Sens S. aureus PCR Negative NEG^Negat kim 07/27/2017 2:32 PM CDT [facility] Comment: MRSA Negative: SA Positive MRSA target DNA not detected, presumed negative for MRSA colonization or the number of bacteria present may be below the limit of detection. Staphylococcus aureus target DNA detected, presumed positive for SA colonization. A positive test does not necessarily indicate the presence of viable organisms. ??It is, however, presumptive for the presence of SA. ??This result does not preclude MRSA nasal colonization. FDA approved assay performed using Referral.IMXpert(R) real-time PCR. Nasal structure (body structure) 07/27/2017 9:10 AM CDT 07/27/2017 9:20 AM CDT Russell Maria MD LAB - MICRO GENE RAL ORDERABLES [facility] [address] [phone] documented in this encounter Visit Diagnoses Diagnosis Pre-operative laboratory examination- Primary Pre-procedural laboratory examination documented in this encounter Care Teams Dental Manager Relationship Specialty Start Date End Date No Ref-Primary, Physician PCP - General 04/29/17 Jennifer Gastelum MD [address] [place] [address] Assigned Surgical Provider 11/21/21 documented as of this encounter
--- OUTSIDE RECORDS SUMMARY | 2023-10-31 10:18 | XMS_ITS | Encounter Summary ---
Author Organization [facility] Address [address] [place] [address] Care Team Providers Care Professor Of Sociology Name Role Phone Unknown, Unavailable Unavailable Clinic, Not Listed Primary Care Provider Unavail able Encounter Details Date Type Department Care Team (Latest Contact Info) Description 07/25/2023 Travel Social History Tobacco Use Types Packs/Day [...] on filedocumented in this encounter Care Teams Professor Of Sociology Relationship Specialty Start Date End Date Brisa, NO ADDRESS/PHONE/FAX AFFILIATED PCP - Primary Care Clinic 09/21/21 Clinic, Not Listed PCP - General 12/20/22 documented as of this encounter
--- OUTSIDE RECORDS SUMMARY | 2023-10-31 10:18 | XMS_ITS | Encounter Summary ---
Author Organization [facility] Address [address] [place] [address] Care Team Providers Care Manual Machinist Name Role Phone Unknown, Md Unavailable Unavailable Clinic, Not Listed Primary Care Provider Unavail able Reason for Visit * Reason Comments Post op check Post op: Having incr eased pain after twisting in a chair- concern something is broken Encounter Details Date Type Department Care Team (Late st Contact Info) Description 07/25/2023 10:45 AM CDT Office Visit [facility] [address] [place] [address] Hugo Nunes MD [address] [place] [address] Status post lumbar spinal fusion (Primary Dx) Social History Tobacco Use Types [...] Mass Index 31.57 07/25/2023 2:46 PM CDT documented in this encounter Progress Notes * Hyatt, Priscila A. - 07/25/2023 10:45 AM CDT Gloria Bonilla [id number] Date of : 1955 Recent Address: [address] [place] [id number] Report Criteria First Name: Gloria Last Name: Chad : 1955 Linked Records ? Name: Gloria Bonilla : 1955 ID: [id number] Gender: Female Address: [address] [place] [id number] RX Summary Summary Total Prescriptions 1 Total Private Pay 0 Total Prescribers 1 Total Pharmacies 1 Narcotics (excluding Buprenorphine) Current MME/day 0.00 30 Day Avg MME/day 0.00 Current Qty 0 Buprenorphine Current mg/day 0.00 30 Day Avg mg/day 0.00 Current Qty 0 UNINTENTIONAL OVERDOSE RISK SCORE MODEL BELOW AVERAGE 030 NARX SCORES NARCOTICS 080 ACTIVE RX 0 SEDATIVES 040 ACTIVE RX 0 STIMULANTS 000 ACTIVE RX 0 DAMICO CONTRIBUTING FACTORS TO OVERDOSE RISK SCORE MODEL Greater than six dispensations No Benzo - Narcotics overlap 0 Days Number of high risk scripts 0 Number of pharmacies where narcotics/sedatives/stimulants filled 1 Total days supply of short-acting drugs 3 Prescriptions Total: 1 Private Pay: 0 Showing 1 Item View 100 Items 1 of 1 Filled Written Sold ID Drug QTY Days Prescriber RX # Dispenser Refill Daily Dose* Pymt Type CYLINDER CHECKER 12/28/2022 12/28/2022 1 Oxycodone Hcl (Ir) 5 Mg Tablet 36.00 3 [facility] [id number] Kamilla (1997) 0/0 Providers Total: 1 Showing 1 Item View 15 Items 1 of 1 Name Address [facility] State Zipcode Phone Jannette Luciano [address] [facility] [address] [facility] [address] As a proxy delegate, I have queried the [place] and/or [place] Prescription Monitoring Program for this patient and provided the clinician with the above information for the preceding 12 months. MADHAVI Diop 07/22/2023 1:57 PM * Hugo Nunes MD - 07/25/2023 10:45 AM CDT DATE OF SERVICE: 07/25/23 CHIEF COMPLAINT: Postoperative visit, low back pain HPI: Gloria Bonilla is a pleasant 67 y.o. female here today for evaluation for the above statedissues. During her previous visit with myself on 04/07/23, the patient reported improvement in symptoms since her surgery. She was doing well postoperatively. Her symptoms continued to show signs of improvement. There were no new problems or major changes since our last encounter. Activity level was increasing at a reasonable rate. There had been no problems with surgical incisions. Sleeping and diet were adequate. She was happy with the results thus far. Today, the patient presents approximately 7 months status post L2-3 Lateral Fusion, Revision Right Sided L2-3 Posterior Fusion (DOS: 12/27/22). She reports that overall she is doing fairly well. She notes that recently she had twisted and felt a snapping sensation with increased low back pain. She reports that after a period of time with increased pain, her pain then started to resolve. She states now that overall she is now doing much better. Her pain is rated at a 0/10 on the pain scale. REVIEW OF SYSTEMS: I have reviewed the last complete 10 point Review of Systems with the patient and any changes in findings are listed as part of today???s visit. All other systems are negative. The patient's Past Medical/Surgical/Family/Social history have been reviewed and verified with the patient. The patient???s current medications have been reviewed and verified with the patient. PHYSICAL EXAM: There were no vitals taken for this visit. GENERAL: In no acute distress. EYES: Pupils equal, grossly EOMI, clear sclera. NECK: Supple, trachea is midline. RESPIRATORY: Breathing unlabored. EXTREMITIES: Symmetrical bilaterally without deformity. NEUROLOGICAL: Patient ambulates normally. Alert and oriented, follows commands appropriately, speech clear. COORDINATION: Tandem gait intact. VASCULAR: Extremities are warm bilaterally. IMAGING: The patient did have imaging prior to this appointment which I reviewed myself and discussed the findings with her. The impression is: 07/25/23- XR Lumbar Spine- [facility] Radiologist Impression: Pending Personal Impression: Solid appearing fusion construct with no signs of hardware loosening or failure. ASSESSMENT: 1.Overall doing well with recent likely myofascial strain leading to some back pain now improved PLAN: 1. We discussed her current imaging and symptoms. Given the prior nerve injury and associated disability we can continue her handicap parking status. 2. A very comprehensive discussion was done with this patient in discussing nonsurgical intervention and the gravity of this type of intervention. A shared decision-making approach was utilized. She will follow up PRN. At the end of our visit, Gloria Bonilla understands the current diagnosis and future treatment plan, and questions were answered satisfactorily. I also asked if there are any other questionsor concerns otherwise, that she please call back to the office; understanding of this was expressed. SCRIBE ATTESTATION: By signing my name below, I, Venessa Gilliam, attest that this documentation has been prepared under the direction and in the presence of Hugo Nunes MD, 07/25/23, 8:51 AM. PHYSICIAN ATTESTATION: IHugo MD, personally performed the services described in this documentation. All medical record entries made by the scribe were at my direction and in my presence. I have reviewed the chart and agree that the record reflects my personal performance, is accurate, and complete. * Ronna Mackay, EQUIPMENT OPERATOR/LABORER/SUPERVISOR - 07/25/2023 10:45 AM CDT Reason for visit: Post op: Having increased pain after twisting in a chair- concern something is broken Symptoms: Patient states her symptoms have improved since making appointments- no new N/T/W on going right leg numbness Pain Score: 0/10 Imaging/Location/ Date/ (HOLLI): 07/25/23 2VTL done at [facility] Injections: None Location: Relief: Physical Therapy: None in the past year/following surgery Location: Relief: Current pain meds: Tylenol Changes in health history since last visit: No changes Any major falls in the last year: no Did the fall(s) result in injury: no Is the patient at risk for falls: no Is a Disability or Workability Form needed - no Current RTW date - Work Comp: no Date: MVA: no Date: Prior Spinal Treatments/ Procedures: Ronna Mackay LPN documented in this encounter Plan of Treatment Not on file documented as of this encounter Visit Diagnoses Diagnosis Status post lumbar spinal fusion- Primary Arthrodesis status documented in this encounter Care Teams Manual Machinist Relationship Specialty Start Date End Date Unknown, NO ADDRESS/PHONE/FAX AFFILIATED PCP - Primary Care Clinic 09/21/21 Clinic, Not Listed PCP - General 12/20/22 documented as of this encounter
--- OUTSIDE RECORDS SUMMARY | 2023-10-31 10:18 | XMS_ITS | Referral Summary ---
Author Organization [facility] Address [address] [place] [address] Care Team Providers Care Engineering Secretary Name Role Phone Unknown, Md Unavailable Unavailable [...] by mouth once daily. Active VIT D3-FOLIC [id number] ORAL Take by mouth. Active cholecalciferol, vitamin [...] other manifestation 09/10/2021 Overview (09/10/2021): treated at [facility] Giant cell arteritis 09/10/2021 Overview (10/08/2021): Discussed [...] 07/25/2023 2:46 PM CDT Plan of Treatment Not on file Medical Devices Implanted Type Area Spreader Box Operator Device Identifier Shelf Expiration Date Model / Serial / Lot Riley [facility] - [id number] Implanted:Qty: 1 on 12/27/2022 by Hugo Nunes MD at [facility] Bone N/A: Spine Lumbar [employer] 11/16/2025 [id number] / [id number] / Set Scr Spnl Dia5.5/6mm [facility] - [id number] Implanted:Qty: 2 on 12/27/2022 by Hugo Nunes MD at [facility] Screw/A nchor N/A: Spine Lumbar [employer] [id number] / / Magnetos Putty 5cc Implanted:Qty: 1 on 12/27/2022 by Hugo Nunes MD at [facility] N/A: Spine Lumbar 07/12/2025 [id number] / / [id number] Description:MFTR: [employer]UR[employer] Spacer Ti 6dg 23w [id number] Implanted:Qty: 1 on 12/27/2022 by Hugo Nunes MD at [facility] N/A: Spine Lumbar [employer] 07/06/2030 [id number] / / [id number] Miniplate Small [id number] Implanted:Qty: 1 on 12/27/2022 by Hugo Nunes MD at [facility] N/A: Spine Lumbar [employer] 05/12/2030 [id number] / / [id number] Bone Screw Ls 5.0x40mm Implanted:Qty: 1 on 12/27/2022 by Hugo Nunes MD at [facility] N/A: Spine Lumbar [employer] 01/15/2029 [id number] / / [id number] Screw 5.5/6.0 Sv Ats 5.5x50 Implanted:Qty: 1 on 12/27/2022 by Hugo Nunes MD at [facility] N/A: Spine Lumbar [employer] [id number] / / Procedures Procedure Name Priority Date/Time Associated Diagnosis Comments COMPREHENSIVE METABOLIC PANEL STAT 12/27/2022 6:13 PM CDT from Last 3 Months or Most Recently Relevant to Health Maintenance Results * (ABNORMAL) Comprehensive Metabolic Panel (12/27/2022 6:13 PM CDT) Sodium 135(L) 136 - 145 mmol/L ATELLICA ANALYZER 12/27/2022 6:55 PM CDT [facility] Potassium 4.0 3.4 - 5.1 mmol/L ATELLICA ANALYZER 12/27/2022 6:55 PM CDT [facility] Comment:Interpret with cauti on, specimen slightly hemolyzed. Results may be affected Chloride 99 98 - 108 mmol/L ATELLICA ANALYZER 12/27/2022 6:55 PM [facility] Carbon Dioxide 25 20 - 31 mmol/L ATELLICA ANALYZER 12/27/2022 6:55 PM T [facility] BUN (Urea Nitro) 18 9 - 23 mg/dL ATELLICA ANALYZER 12/27/2022 6:55 PM [facility] Creatinine 0.55 0.55 - 1.02 mg/dL ATELLICA ANALYZER 12/27/2022 6:55 PM [facility] Est GFR (CKD-EPI) >60.00 >60.00 mL/min/1. 73m2 ATELLICA ANALYZER 12/27/2022 6:55 PM [facility] Comment:Calculation based on the Chronic Kidney Disease Epidemiology Collaboration (CKD-EPI) equation refit without adjustment for race. Glucose 286(H) 74 - 106 mg/dL ATELLICA ANALYZER 12/27/2022 6:55 PM [facility] Calcium, Serum 9.2 8.7 - 10.4 mg/dL ATELLICA ANALYZER 12/27/2022 6:55 PM [facility] Anion Gap 11.0 0.0 - 15.0 mmol/L ATELLICA ANALYZER 12/27/2022 6:55 PM [facility] Albumin 3.4 3.4 - 5.0 g/dL ATELLICA ANALYZER 12/27/2022 6:55 PM [facility] Bilirubin-Total 0.3 0.3 - 1.2 mg/dL ATELLICA ANALYZER 12/27/2022 6:55 PM [facility] Alkaline Phosphatase 104 46 - 116 U/L ATELLICA ANALYZER 12/27/2022 6:55 PM [facility] Protein Total 6.9 5.7 - 8.2 g/dL ATELLICA ANALYZER 12/27/2022 6:55 PM [facility] AST (SGOT) 66(H) 13 - 40 U/L ATELLICA ANALYZER 12/27/2022 6:55 PM [facility] ALT 72(H) 7 - 40 U/L ATELLICA ANALYZER 12/27/2022 6:55 PM CDT [facility] Blood 12/27/2022 6:13 PM CDT 12/27/2022 6:29 PM CDT Douglas Ndiaye MD CHEMISTRY ORDERABLE [facility] [address] [id number] from Last 3 Months or Most Recently Relevant to Health Maintenance Advance Directives For more information, please contact: [phone] * Full Code (Latest Code Status on File) Date Activated Date Inactivated Comments 12/27/2022 3:48 PM 12/28/2022 8:53 PM Question Answer Comments How was code status determined? Physician Giovany rosenberg * Full Code Date Activated Date Inactivated Comments 12/27/2022 5:32 AM 12/27/2022 11:38 AM Question Answer Comments How was code status determined? Physician Giovany rosenberg to confirm in preop Care Teams Engineering Secretary Relationship Specialty Start Date End Date Brisa, NO ADDRESS/PHONE/FAX AFFILIATED PCP - Primary Care Clinic 09/21/21 Clinic, Not Listed PCP - General 12/20/22
--- OUTSIDE RECORDS SUMMARY | 2023-10-31 10:18 | XMS_ITS | Encounter Summary ---
Author Organization [facility] Address [address] [place] [address] Care Team Providers Care Supervisor Data Processing Name Role Phone Elsewhere, Pcp Primary Care Provider Unavailabl e Encounter Details Date Type Department Care Team (Late st Contact Info) Description 06/29/2010 Historical Ophthalmology [facility] Mariana Gupta M.D. Social History Tobacco Use Types Packs/Day Years Used Date Smoking Tobacco: Never Assessed Sex and Gender Information Value Date Recorded Sex Assigned at Not on file Gender Identity Not on file Sexual Orientation Not on file documented as of this encounter Progress Notes * Mariana Gupta M.D. - 06/29/2010 10:51 AM CDT Eye General CHIEF COMPLAINT Macular Degeneration HISTORY OF PRESENT ILLNESS This is a 54 year old female here for evaluation of Macular Degeneration. Blurred vision; both eyes; x several years; constantly; symptoms are resolved with glasses. Floaters alone; both eyes; x several years; occasionally. Denies flashes of light. Patient denies ocular pain. IMPRESSION / REPORT / PLAN OCT MACULA: PHOTOS: FAF: CD Reports - EYEGEN Id: [id number] Status: Fnl documented in this encounter Plan of Treatment Not on file documented as of this encounter Visit Diagnoses Not on filedocumented in this encounter Additional Health Concerns Infection Onset Date Last Indicated Resolved Time COVID19 Pending 01/26/2020 01/26/2020 01/27/2020 6 :42 PM PAINTING WORKER COVID19 Pending 03/24/2020 03/24/2020 03/24/2020 1 1:07 PM PAINTING WORKER COVID19 Pending 04/21/2020 04/21/2020 04/21/2020 2 :23 PM PAINTING WORKER COVID19 Pending 04/21/2020 04/21/2020 04/22/2020 3 :12 PM PAINTING WORKER COVID19 Pending 05/14/2020 05/14/2020 05/14/2020 1 0:35 PM PAINTING WORKER COVID19 05/14/2020 05/14/2020 06/03/2020 4:46 AM CDT COVID19 Pending 12/26/2020 12/26/2020 12/27/2020 1 :21 PM CDT COVID19 Pending 01/05/2021 01/05/2021 01/05/2021 4 :41 PM CDT COVID19 Pending 01/05/2021 01/05/2021 01/07/2021 2 :03 AM CDT COVID19 Pending 01/30/2021 01/30/2021 01/30/2021 1 1:38 PM PAINTING WORKER COVID19 01/30/2021 01/30/2021 02/19/2021 5:07 AM PAINTING WORKER COVID19 Pending 02/12/2022 02/12/2022 02/12/2022 8 :29 PM PAINTING WORKER documented as of this encounter Care Teams Supervisor Data Processing Relationship Specialty Start Date End Date Elsewhere, Pcp PCP - General Internal Medicine 11/21/21 documented as of this encounter
--- OUTSIDE RECORDS SUMMARY | 2023-10-31 10:18 | XMS_ITS | Clinical Summary ---
Author Organization [facility] Address [address] [place] [address] Care Team Providers Care Drilling Fluids Specialist Name Role Phone Elsewhere, Pcp Primary Care Provider Unavailabl e Source Comments Patient records contain information from all sites at [facility]. For routine questions regarding patient records, call [phone] during business hours, M-F 8:00 AM - 5:00 PM Central Time. Record requests for emergency care only can be directed to [phone] at any time.[facility] Allergies No known active allergies Medications Medication Sig Dispensed Refills Start Date End Date Status cholecalciferol (VITAMIN D3) 50 mcg (2,000 Unit) tablet Take 1 tablet by mouth daily. 06/30/2015 Active diphenhydrAMINE (BENADRYL) 25 mg capsule Take 50 mg by mouth. Active multivitamin with minerals capsule Take 1 tablet by mouth daily. 06/30/2015 Active venlafaxine HCl (VENLAFAXINE ORAL) Take 75 mg by mouth daily. 03/31/2015 Active propranoloL (INDERAL LA) 120 mg 24 hr capsule Take 1 capsule by mouth daily. 05/05/2016 Active zinc gluconate 50 mg tablet Take 50 mg by mouth daily with breakfast. Active magnesium oxide (MAG-OX) 250 mg of magnesium tablet Take 250 mg by mouth daily. Active SUMAtriptan (IMITREX) 50 mg tablet Take 1 tablet (50 mg total) by mouth as needed for migraine. May repeat dose once in 2 hours if migraine is unresolved. Do not exceed 200 mg in 24 hours. 10 tablet 11/22/2021 Active ondansetron ODT (ZOFRAN-ODT) 4 mg disintegrating tablet Dissolve 1 tablet (4 mg total) in the mouth every 6 (six) hours as needed for nausea or vomiting. 10 tablet 11/22/2021 Active atorvastatin (LIPITOR) 20 mg tablet Take 20 mg by mouth at bedtime. 07/04/2021 Active furosemide (LASIX) 40 mg tablet Take 40 mg by mouth daily. 12/12/2020 Active metFORMIN (GLUCOPHAGE) 1,000 mg tablet Take 1,000 mg by mouth daily. 10/18/2020 Active venlafaxine XR (EFFEXOR-XR) 150 mg 24 hr capsule Take 150 mg by mouth daily with breakfast. 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 Briefly discussed treatment options of both wet and dry macular degeneration. 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 Overview (11/21/2021): Discussed etiology of disease and risks of [...] Plan: Patient presents today for NO consult follow [...] Infection 05/15/2020 Polymyalgia Rheumatica 03/31/2015 Hypertension 10/15/2013 Overview (11/21/2021): Hypertension (HTN) Chronic Hypertension (HTN) Chronic Anxiety Generalized Disorder 12/08/2011 Insomnia 08/22/2009 Obesity Unspecified 07/12/2008 Immunizations Name Administration Dates Next Due PPSV23 11/05/2013 Tdap 09/24/2013,08/22/2009 Social History Tobacco Use Types Packs/Day Years Used Date Smoking Tobacco: Never Nutrition Answer Date Recorded Nutrition: EVOO Fat Source Unknown 05/12 Nutrition: Servings of Fruits/Vegetables per Day Not on file 05/12/2020 Dental Answer Date Recorded Dental: Regular Dentist Unknown 05/13/19 21 Sex and Gender Information Value Date Recorded Sex Assigned at Not on file Gender Identity Not on file Sexual Orientation Not on file Last Filed Vital Signs Vital Sign Reading Time Taken Comments Blood Pressure 127/66 02/12/2022 9:00 PM PLANT CULTURE MANAGER Pulse 60 02/12/2022 9:00 PM PLANT CULTURE MANAGER Temperature 36.6 ??C (97.9 ??F) 02/12/2022 6:21 PM CS T Respiratory Rate 20 02/12/2022 7:10 PM PLANT CULTURE MANAGER Oxygen Saturation 97% 02/12/2022 8:45 PM PLANT CULTURE MANAGER Inhaled Oxygen Concentration - - Weight 106 kg (233 lb 3.2 oz) 02/12/2022 4:31 PM PLANT CULTURE MANAGER Height 177.8 cm (5' 10) 02/12/2022 4:31 PM PLANT CULTURE MANAGER Body Mass Index 33.46 02/12/2022 4:31 PM PLANT CULTURE MANAGER Plan of Treatment Health Maintenance Due Date Last Done Comments Bone Density Scan (Osteoporosis Screen) 1955 CT Colonography 1955 Cologuard 1955 FIT 1955 Office Visit for Blood Pressure Check / Re-check 1955 Mammogram 10/15/2014 10/15/2013, 09/11, 08/13/2011 Pneumococcal vaccine (65+ years) (2 of 2 - PCV) 11/05/2014 11/05/2013 Creatinine Level (Kidney Function Test) 02/13/2023 02/13/2022, 07/19/2021, 07/18/2021, Additional history exists Potassium Level 02/13/2023 02/13/2022, 05/0 10/2021, 07/18/2021, Additional history exists Sodium Level 02/13/2023 02/13/2022, 05/0 10/2021, 07/18/2021, Additional history exists COVID-19 Vaccine ( season) 2023 01/05/2023, 07/30/2022, 12/17/2021, Additional history exists Depression Screening (Annual PHQ-2) 03/14/2023 Fall Risk Screen (Annual) 03/14/2023 DTaP,Tdap,and Td Vaccines (3 - Td or Tdap) 09/25/2023 09/24/2013, 08/22/2009 Influenza Vaccine (#1) 2023 , 01/23/2021, 01/25/2020, Additional history exists Colonoscopy 09/09/2024 09/09/2014 Colorectal Cancer Screening 09/09/2024 Fasting Glucose for Diabetes Screening 02/13/2025 02/13/2022, 07/19/2021, 07/18/2021, Additional history exists Cervical Cancer Screening Discontinued 10/15/2013 Hepatitis C Screening Completed 03/31/2015 Zoster Vaccines Completed 01/16/2018, 10/03/2017 HPV Vaccines Aged Out No longer eligi ble based on patient's age to complete this topic Procedures Procedure Name Priority Date/Time Associated Diagnosis Comments CREATININE WITH EGFR, S/P Routine 04/19/2016 2:25 PM PLANT CULTURE MANAGER CHRONIC VIRAL HEPATITIS PROFILE Routine 03/31/2015 12:42 PM PLANT CULTURE MANAGER HEMOGLOBIN A1C, B Routine 03/30/2015 12: 06 PM PLANT CULTURE MANAGER BASIC METABOLIC PANEL, S/P Routine 11/05/2013 10:48 AM CDT BI BREAST SCREENING BILATERAL Routine 10/15/2013 9:58 AM CDT PATHOLOGY LUMBER TYING MACHINE OPERATOR CYTOLOGY Routine 10/15/2013 12:00 AM CDT from Last 3 Months or Most Recently Relevant to Health Maintenance Results * Creatinine with eGFR (04/19/2016 2:25 PM PLANT CULTURE MANAGER) Creatinine 0.7 0.6 - 1.1 MGDL POWERCHART HXeGFR (MDRD) >60.0 >=60.0 MLMINSA POWERCHART eGFR Black/ >60.0 >=60.0 MLMINSA POWERCHART Blood 04/19/2016 2:25 PM PLANT CULTURE MANAGER Nicole Mariano LAB BLOOD ADD-ON POWERCHART * Chronic Hepatitis Profile (03/31/2015 12:42 PM PLANT CULTURE MANAGER) HBc Total Ab, S Negative Negative [facility] HBs Antibody,S Negative Unvaccinated : Negative; Vaccinated: Positive [facility] Comment:Patient is presumed to be not immune to infection with HBV. HBs Antibody, Quantitative, S <5.0 Unvaccinated : <5.0; Vaccinated: >=12.0 MIU/ML [facility] HBs Antigen, S Negative Negative [facility] HCV Ab, S Negative Negative [facility] Comment:Pnnxmx-da-hewnfr rat io is <1.00. 03/31/2015 12:4 2 PM PLANT CULTURE MANAGER 03/31/2015 12:42 PM PLANT CULTURE MANAGER Nicole Mariano LAB MICROBIOLOGY - BLOOD ORDERABLES [facility] [address] * (ABNORMAL) Hemoglobin A1c (03/30/2015 12:06 PM PLANT CULTURE MANAGER) Hemoglobin A1c, B 6.3(H) <=5.6 A1C POWERCHART Blood 03/30/2015 12:0 6 PM PLANT CULTURE MANAGER Maninder Salvador M.D. LAB BLOOD ADD-ON Performing Organization Address City/[facility]/ZIP Co de Phone Number POWERCHART * BMP (Basic Metabolic Panel) (11/05/2013 10:48 AM CDT) Sodium, S 137 135 - 145 MMOLL POWERCHART Potassium, S 4.2 3.5 - 5.1 MMOLL POWERCHART Chloride, S 100 98 - 107 MMOLL POWERCHART CO2 Total 26 22 - 29 MMOLL POWERCHART BUN (Blood Urea Nitrogen), S 14 6 - 24 MGDL POWERCHART Creatinine 0.6 0.6 - 1.1 MGDL POWERCHART Calcium, Total, S 9.6 8.6 - 10.3 MGDL POWERCHART Anion Gap 11 7 - 15 MMOLL POWERCHART HXeGFR (MDRD) >60.0 >=60.0 MLMINSA POWERCHART eGFR Black/ >60.0 >=60.0 MLMINSA POWERCHART Glucose 115 70 - 140 MGDL POWERCHART Blood 11/05/2013 10:4 8 AM CDT Maninder Salvador M.D. LAB BLOOD ADD-ON POWERCHART * BI Breast Screening Bilateral (10/15/2013 9:58 AM CDT) Anatomical Region Laterality Modality Breast Bilateral Mammography 10/15/2013 9:58 AM CDT Addenda Addendum by ProviderLandon M.D. on 10/15/2013 9:58 AM CDT RAD^^^MA MA Mammo Screening w/ CADD 10/15/2013 09:58:40 Impressions 10/15/2013 10:46 AM CDT Negative mammogram. ??Recommend annual screening mammography. BREAST MAMMOGRAPHY - GENERAL OBSERVATIONS: ??The false negative rate for mammography is 15-20%. ??It cannot be used, therefore, to replace the regular physical examination. ??A normal or noncontributory mammogram report also should not deter the aggressive further workup of any suspected palpable masses. ACR Code 1. Narrative 10/15/2013 10:46 AM CDT Comparison: 09/25/2012, 07/30/2011. FINDINGS: Breast tissue demonstrates scattered fibroglandular tissue. No evidence of suspicious mass, clustered microcalcification, architectural distortion. Computer aided detection utilized during interpretation of this exam. Procedure Note Lewis Terrazas M.D. / ProviderLandon M.D. - 07/24/2016 Comparison: 09/25/2012, 07/30/2011. FINDINGS: Breast tissue demonstrates scattered fibroglandular tissue. No evidence of suspicious mass, clustered microcalcification, architectural distortion. Computer aided detection utilized during interpretation of this exam. IMPRESSION: Negative mammogram. Recommend annual screening mammography. BREAST MAMMOGRAPHY - GENERAL OBSERVATIONS: The false negative rate for mammography is 15-20%. It cannot be used, therefore, to replace the regular physical examination. A normal or noncontributory mammogram report also should not deter the aggressive further workup of any suspected palpable masses. ACR Code 1. Josephine Flynn.T.(R)(CT), RAaronTAaron(R)(M) IMG BI PROCEDURES * Pathology LUMBER TYING MACHINE OPERATOR Cytology (10/15/2013 12:00 AM CDT) 10/15/2013 Narrative [facility] - 10/24/2013 9:[address] [facility] [address] [facility] [address] [place], [place] ??[address] Patient Name: GLORIA GARCIA Collected: 10/15/2013 Address: City/State/Zip: [address] [place], [place] ??[address] Received: Reported: 10/16/2013 10/24/2013 Soc. Sec. #: ?/Age/Sex 1955 (Age: 57) ??F Physician(s): THERESE GUTIERREZ MD Copy To: ? [facility] ??[id number] [address] [place] [address], ??[place] ??[id number] CYTOPATHOLOGY LUMBER TYING MACHINE OPERATOR REPORT FINAL CYTOLOGIC DIAGNOSIS Pap Smear - ThinPrep: NEGATIVE FOR INTRAEPITHELIAL LESION OR MALIGNANCY SPARSE TO NO ENDOCERVICAL COMPONENT PRESENT. SATISFACTORY SPECIMEN FOR EVALUATION. Electronically Signed Out By emoryw/10/24/2013 EMORY SCHROEDER(ASCP) The Pap test is a screening procedure and, as such, is subject to both false positive and false negative results as evidenced by published data. ??It is not a diagnostic test and results should be interpreted in the context of the patient's history and other clinical findings. ??Obtaining periodic Pap tests may help to minimize the consequences of any false negatives that may occur. SPECIMEN(S) RECEIVED: Pap Smear - ThinPrep CLINICAL HISTORY: Date of Last PAP: 07-30-11 Date of Last Menstrual Period: 6-8 YRS AGO Other Clinical Conditions: HPV TYPING REQUESTED: IF ASCUS Bird Gutierrez M.D. LAB PAP COPATH Dimitry [facility] from Last 3 Months or Most Recently Relevant to Health Maintenance Care Teams Drilling Fluids Specialist Relationship Specialty Start Date End Date Elsewhere, Pcp PCP - General Internal Medicine 11/21/21
--- OUTSIDE RECORDS SUMMARY | 2023-10-31 10:18 | XMS_ITS | Encounter Summary ---
Author Organization [facility] Address [address] [place] [address] Care Team Providers Care Distribution Sales Manager Name Role Phone Elsewhere, Pcp Primary Care Provider Unavailabl e Encounter Details Date Type Department Care Team (Late st Contact Info) Description 06/30/2010 Historical Ophthalmology [facility] Mariana Gupta M.D. Social History Tobacco Use Types Packs/Day Years Used Date Smoking Tobacco: Never Assessed Sex and Gender Information Value Date Recorded Sex Assigned at Not on file Gender Identity Not on file Sexual Orientation Not on file documented as of this encounter Progress Notes * Mariana Gupta M.D. - 06/30/2010 8:29 AM CDT Eye General CHIEF COMPLAINT Evaluation of Macular Degeneration HISTORY OF PRESENT ILLNESS This is a 54 year old female here for evaluation of Macular Degeneration. Patient was diagnosed with Macular Degeneration six months ago, patient is using Eye Promise Restore supplement. Patient is unfamiliar with Amsler grid. Patient notes her vision has gotten progressively worse since turning [age], every time she is seen she is having to adjust her prescription. Blurred vision; both eyes; x several years; constantly; symptoms are resolved with glasses. Floaters alone; both eyes; x several years; primarily when patient closes her eyes. Patient notes that she has wavy and distorted vision at the onset of a migraine; x several years; rarely. Denies flashes of light. Patient denies ocular pain. Patient has severe dry eye and is using Systane. No other eye concerns. IMPRESSION / REPORT / PLAN [facility]: OCT of macular: normal [...] eye care provider. Patient is interested in whether she is a lasik candidate. Corneal referral prn. She will consider. Discussed all of the above with patient who states that he/she understands and agrees with plan. Copy of CDM to Dr. Nielsen per patient request. DIAGNOSIS #1 macular drusen, cuticular, both eyes #2 Dry eye syndrome CDM Reports - EYEGEN Id: [id number] Status: Fnl documented in this encounter Plan of Treatment Not on file documented as of this encounter Visit Diagnoses Not on filedocumented in this encounter Additional Health Concerns Infection Onset Date Last Indicated Resolved Time COVID19 Pending 01/26/2020 01/26/2020 01/27/2020 6 :42 PM COMMISSARY ASSISTANT COVID19 Pending 03/24/2020 03/24/2020 03/24/2020 1 1:07 PM COMMISSARY ASSISTANT COVID19 Pending 04/21/2020 04/21/2020 04/21/2020 2 :23 PM COMMISSARY ASSISTANT COVID19 Pending 04/21/2020 04/21/2020 04/22/2020 3 :12 PM COMMISSARY ASSISTANT COVID19 Pending 05/14/2020 05/14/2020 05/14/2020 1 0:35 PM COMMISSARY ASSISTANT COVID19 05/14/2020 05/14/2020 06/03/2020 4:46 AM CDT COVID19 Pending 12/26/2020 12/26/2020 12/27/2020 1 :21 PM CDT COVID19 Pending 01/05/2021 01/05/2021 01/05/2021 4 :41 PM CDT COVID19 Pending 01/05/2021 01/05/2021 01/07/2021 2 :03 AM CDT COVID19 Pending 01/30/2021 01/30/2021 01/30/2021 1 1:38 PM COMMISSARY ASSISTANT COVID19 01/30/2021 01/30/2021 02/19/2021 5:07 AM COMMISSARY ASSISTANT COVID19 Pending 02/12/2022 02/12/2022 02/12/2022 8 :29 PM COMMISSARY ASSISTANT documented as of this encounter Care Teams Distribution Sales Manager Relationship Specialty Start Date End Date Elsewhere, Pcp PCP - General Internal Medicine 11/21/21 documented as of this encounter
--- OUTSIDE RECORDS SUMMARY | 2023-10-31 10:18 | XMS_ITS | Referral Summary ---
Author Organization [facility] Address [address] [place] [address] Care Team Providers Care Story Writer Name Role Phone Elsewhere, Pcp Primary Care Provider Unavailabl e Source Comments Patient records contain information from all sites at [facility]. For routine questions regarding patient records, call [phone] during business hours, M-F 8:00 AM - 5:00 PM Central Time. Record requests for emergency care only can be directed to [phone] at any time.[facility] Allergies No known active allergies [...] Comments Blood Pressure 127/66 02/12/2022 9:00 PM MEDICATION MANAGER Pulse 60 02/12/2022 9:00 PM MEDICATION MANAGER Temperature 36.6 ??C (97.9 ??F) 02/12/2022 6:21 PM CS T Respiratory Rate 20 02/12/2022 7:10 PM MEDICATION MANAGER Oxygen Saturation 97% 02/12/2022 8:45 PM MEDICATION MANAGER Inhaled Oxygen Concentration - - Weight 106 kg (233 lb 3.2 oz) 02/12/2022 4:31 PM MEDICATION MANAGER Height 177.8 cm (5' 10) 02/12/2022 4:31 PM MEDICATION MANAGER Body Mass Index 33.46 02/12/2022 4:31 PM MEDICATION MANAGER Plan of Treatment Not on file Procedures Procedure Name Priority Date/Time Associated Diagnosis Comments CREATININE WITH EGFR, S/P Routine 04/19/2016 2:25 PM MEDICATION MANAGER CHRONIC VIRAL HEPATITIS PROFILE Routine 03/31/2015 12:42 PM MEDICATION MANAGER HEMOGLOBIN A1C, B Routine 03/30/2015 12: 06 PM MEDICATION MANAGER BASIC METABOLIC PANEL, S/P Routine 11/05/2013 10:48 AM CDT BI BREAST SCREENING BILATERAL Routine 10/15/2013 9:58 AM CDT PATHOLOGY PHLEBOTOMIST CYTOLOGY Routine 10/15/2013 12:00 AM CDT from Last 3 Months or Most Recently Relevant to Health Maintenance Results * Creatinine with eGFR (04/19/2016 2:25 PM MEDICATION MANAGER) Creatinine 0.7 0.6 - 1.1 MGDL POWERCHART HXeGFR (MDRD) >60.0 >=60.0 MLMINSA POWERCHART eGFR Black/ >60.0 >=60.0 MLMINSA POWERCHART Blood 04/19/2016 2:25 PM MEDICATION MANAGER Nicole Mariano LAB BLOOD ADD-ON POWERCHART * Chronic Hepatitis Profile (03/31/2015 12:42 PM MEDICATION MANAGER) HBc Total Ab, S Negative Negative [facility] HBs Antibody,S Negative Unvaccinated : Negative; Vaccinated: Positive [facility] Comment:Patient is presumed to be not immune to infection with HBV. HBs Antibody, Quantitative, S <5.0 Unvaccinated : <5.0; Vaccinated: >=12.0 MIU/ML [facility] HBs Antigen, S Negative Negative [facility] HCV Ab, S Negative Negative [facility] Comment:Qpkjwa-wq-rogsbf rat io is <1.00. 03/31/2015 12:4 2 PM MEDICATION MANAGER 03/31/2015 12:42 PM MEDICATION MANAGER Nicole Mariano LAB MICROBIOLOGY - BLOOD ORDERABLES [facility] [address] * (ABNORMAL) Hemoglobin A1c (03/30/2015 12:06 PM MEDICATION MANAGER) Hemoglobin A1c, B 6.3(H) <=5.6 A1C POWERCHART Blood 03/30/2015 12:0 6 PM MEDICATION MANAGER Maninder Salvador M.D. LAB BLOOD ADD-ON POWERCHART * BMP (Basic Metabolic Panel) (11/05/2013 [...] CDT Maninder Salvador M.D. LAB BLOOD ADD-ON LIZ * BI Breast Screening Bilateral (10/15/2013 9:58 [...] suspected palpable masses. ACR Code 1. Josephine Isaac(R)(CT), R.T.(R)(M) IMG BI PROCEDURES * Pathology PHLEBOTOMIST Cytology (10/15/2013 12:00 AM CDT) 10/15/2013 Narrative [facility] - 10/24/2013 9:16 AM CDT [facility] [place] [address] [place], [place] ??[address] Patient Name: GLORIA GARCIA Collected: 10/15/2013 Address: City/State/Zip: [address] [place], [place] ??[address] Received: Reported: 10/16/2013 10/24/2013 Soc. Sec. #: ?/Age/Sex 1955 (Age: 57) ??F Physician(s): THERESE GUTIERREZ MD Copy To: ? [facility] ??[id number] [address] [place] [address], ??[place] ??[id number] CYTOPATHOLOGY PHLEBOTOMIST REPORT FINAL CYTOLOGIC DIAGNOSIS Pap Smear - ThinPrep: NEGATIVE FOR INTRAEPITHELIAL LESION OR MALIGNANCY SPARSE TO NO ENDOCERVICAL COMPONENT PRESENT. SATISFACTORY SPECIMEN FOR EVALUATION. Electronically Signed Out By emoryw/10/24/2013 EMORY Louiswrzynaikoby SCHROEDER(ASCP) The Pap test is a screening [...] ASCUS Bird Gutierrez M.D. LAB PAP [facility]ATH [facility] from Last 3 Months or Most Recently Relevant to Health Maintenance Care Teams Story Writer Relationship Specialty Start Date End Date Elsewhere, Pcp PCP - General Internal Medicine 11/21/21
--- OUTSIDE RECORDS SUMMARY | 2023-10-31 10:18 | XMS_ITS ---
Author Organization [facility] Address [address] [place] [address] Care Team Providers Care Lamination Machine Operator Name Role Phone Unavailable Unavailable Unavailable Surgery Details Not on file Complications Check Surgery Details section. Procedure Estimated Blood Loss Check Surgery Details section. Procedure Findings Check Surgery Details section. Procedure Specimens Taken Check Surgery Details section.
--- OUTSIDE RECORDS SUMMARY | 2023-10-31 10:18 | XMS_ITS | Clinical Summary ---
Author Organization [facility] Address [place], [place] [address] Care Team Providers Care Spring Setter Name Role Phone Jose R Wells MD Primary Care Provider Allergies Active Allergy Reactions Criticality Noted Date Comments Meperidine Nausea And Vomiting 12/08/2004 Oxycodone-Aspirin Nausea And Vomiting 5 Medications Medication Sig Dispensed Refills Start Date End Date Status metFORMIN (GLUCOPHAGE) 1,000 mg tablet Take 1,000 mg by mouth at bedtime. 10/18/2020 Active furosemide (LASIX) 40 mg tablet Take 40 mg by mouth once daily. 12/12/2020 Active triamterene-hydroc hlorothiazide, 37.5-25 mg, (DYAZIDE) 37.5-25 mg capsule Take 1 Capsule by mouth. 10/03/2020 Active venlafaxine (EFFEXOR XR) 150 mg Extended-Release capsule TAKE ONE CAPSULE BY MOUTH DAILY WITH 75MG 09/27/2020 Active venlafaxine (EFFEXOR XR) 75 mg cp24 Extended-Release capsule TAKE ONE CAPSULE BY MOUTH DAILY WITH 150MG 10/18/2020 Active prochlorperazine (COMPAZINE) 5 mg tabletIndications: Nonintractable headache, unspecified chronicity pattern, unspecified headache type Take 1 Tablet (5 mg) by mouth every 6 hours if needed for Nausea/Vomiting (headache). 15 Tablet 07/18/2021 Active diphenhydrAMINE (BENADRYL) 25 mg capsule Take 25 mg by mouth at bedtime if needed. Active diphenhydrAMINE-ac etaminophen 25-500 mg (TYLENOL PM) 25-500 mg tablet Take 1 Tablet by mouth at bedtime if needed. Max acetaminophen dose: 4000mg in 24 hrs. Active acetaminophen (TYLENOL EXTRA STRGTH) 500 mg tablet Take 1,000 mg by mouth every 6 hours if needed for Headache or Pain. Max acetaminophen dose: 4000mg in 24 hrs. Active atorvastatin (LIPITOR) 20 mg tablet Take 20 mg by mouth at bedtime. 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/2021 PMR (polymyalgia rheumatica) 07/20/2021 HTN (hypertension) 07/20/2021 VINCE (generalized anxiety disorder) 07/20/2021 Essential tremor 07/20/2021 Temporal headache Family History Medical History Relation Name Comments Coronary artery disease Father Transient ischemic attack Mother Relation Name Status Comments Father Mother Social History Tobacco Use Types Packs/Day Years Used Date Smoking Tobacco: Never Smokeless Tobacco: Never Social Connections Answer Date Recorded Frequency of Communication with Friends and Fami ly Not on file 06/21/2022 Sex and Gender Information Value Date Recorded Sex Assigned at Not on file Gender Identity Not on file Sexual Orientation Not on file Obstetrics History Last Filed Vital Signs Vital Sign Reading Time Taken Comments Blood Pressure 148/69 11/20/2021 6:40 AM CDT Pulse 65 11/20/2021 6:40 AM CDT Temperature 36.7 ??C (98.1 ??F) 11/20/2021 2:58 AM CD T Respiratory Rate 18 11/20/2021 2:58 AM CDT [...] for age 18-79 1974 Tetanus booster 1976 Colonoscopy through age 75 2001 Lipids for age 45-75 2001 Mammogram for age 45-75 2001 Zoster (shingles) series for age 50+ (1 of 2) 2006 DEXA/DXA scan for age 65+ 2021 Pneumococcal series for age 65+ (1 of 1 - PCV) 2021 BMI (ht and wt on same day) for age 18+ 12/18/2021 12/18/2020 COVID-19 vaccine series ( season) 2022 07/06/2021, 08/28/2020, 07/29/2020 Influenza for age 65+ 11/13/2023 Advance Directives * Full Code (Latest Code Status on File) Date Activated Date Inactivated Comments 07/20/2021 2:56 AM 07/22/2021 2:38 PM Question Answer Comments Code Status Discussion: Reviewed Preferences Care Teams Spring Setter Relationship Specialty Start Date End Date Jose R Wells MD PCP - General Family Practice 06/26/21
== END 2023-10-31 10:13 | disposition home or self-care (01) ==
PROVIDERS: PCP Family Medicine; Visit Provider Family Medicine
DX: E78.2 Mixed hyperlipidemia (principal); I10 Essential (primary) hypertension
CPT/HCPCS: 80048; 80061

== ENCOUNTER 2023-11-17 12:57 | Outpatient (CLI) | payer MEDICARE, SELFPAY ==
--- NOTE | 2023-11-17 13:00 | CRLHL7_ITS ---
For Patients: As a result of the Century Cures Act, medical imaging exams and procedure reports are released immediately into your electronic medical record. You may view this report before your referring provider. If you have questions, please contact your health care provider. DXA BONE MINERAL DENSITY STUDY Current height (in): 70.0. Weight (lb): 219.0. Menopause age: 51. Ethnicity: White. Reason for exam: Wedge compression fracture of T11-T12 vertebra. History of wrist and rib fracture. 1. Have you had a previous hip or vertebral fracture? Yes. 2. Have you had any fractures during your adult life which did not result from significant trauma (e.g., auto accident)? Yes. 3. Did either of your parents have a hip fracture? Yes. 4. Do you smoke? No. 5. Have you ever taken Glucocorticoids? No. 6. Do you have rheumatoid arthritis? No. 7. Do you have secondary osteoporosis? No. 8. Do you drink 3 or more alcoholic drinks per day? No. 9. Are you being treated for osteoporosis? No. 10. Have you ever taken any of the following medications: Actonel, Evista, Fosamax, Miacalcin, Reclast, Boniva, Forteo, HRT (i.e. estrogen/hormone therapy), Protelos, Prolia, Vitamin D, Calcium, other ??? please specify. ANSWER: Yes, vitamin D, calcium. 11. Do you have any of the following medical conditions: Anorexia or bulimia, asthma or emphysema, end stage renal disease, hyperparathyroidism, any seizure disorders, cancer, inflammatory bowel diseases, hysterectomy, other ??? please specify. ANSWER: No. 12. What was your maximum height (inches)? 70. 13. Do you perform weight bearing exercise regularly? No. 14. Do you regularly consume dairy products? Yes. 15. Do you drink caffeinated beverages? Yes. 16. At what age did your period start? 13. 17. Are you premenopausal? No. 18. How many full-term pregnancies have you had? 3. 19. Have you ever missed your period for more than 6 months in a row (not including or menopause)? No. TECHNIQUE: Bone mineral density study was performed using the OxiCool. FINDINGS: The results of the study expressed as bone mineral density (BMD) are as follows: Neck Left: BMD: 0.839 g/cm2. T-score: -0.1. Z-score: 1.5 Right: BMD: 0.884 g/cm2. T-score: 0.3. Z-score: 1.9 Total Left: BMD: 1.093 g/cm2. T-score: 1.2. Z-score: 2.6 Right: BMD: 1.074 g/cm2. T-score: 1.1. Z-score: 2.4 Left Radius Left 33%: BMD: 0.669 g/cm2. T-score: -0.6. Z-score: 1.4 IMPRESSION: Normal bone density. Abel Ko M.D. Diagnostic Radiologist [email or web address] Transcribed: 9:28 am DW/Dictated by: Abel Ko MD @ 11/18/2023 9:01:00 AM (Electronically Signed)
--- OUTSIDE RECORDS SUMMARY | 2023-11-17 13:00 | XMS_ITS | Referral Summary ---
Author Organization [place] Address [address] [place] [address] Care Team Providers Care Concrete Pipe Machine Operator Name Role Phone No Ref-Primary, Physician Primary Care Provider Encounters Date Type Department Care Team Description 10/23/2023 Travel 10/23/2023 1:09 PM CDT - 10/23/2023 3:03 PM CDT Emergency [facility] Emergency Dept [address] [place] [address] John Salas MD Closed fracture [...] mention of other manifestation Overview: treated at [facility] Leiomyoma of uterus Overview: Problem list name [...] on file Medical Devices Implanted Type Area Security Guard Dispatcher Device Identifier Shelf Expiration Date Model / Serial / Lot Bone Cement Simplex Full Dose 6191-1-001 Implanted:Qty : 1 on 08/15/2017 by Russell Maria MD at [facility] Cement, Bone Left: Knee [employer] 11/12/2019 6191-1-00 1 / / [id number] Imp Plate Tibial Zim Nexgen Size 5 Implanted:Qty : 1 on 08/15/2017 by [place] Maria MD at [facility] Metallic Hardware/Anc hor Left: Knee [employer] 05/12/2027 00-5980-0 47-01 / / [id number] Imp Comp Femoral Zim Nexgen H Ps Lt [id number] 1 Implanted:Qty : 1 on 08/15/2017 by [place] Maria MD at [facility] Total Joint Component/In sert Left: Knee [employer] 10/11/2026 00-5996-0 18-51 / / [id number] Imp Art Surface Zim Nexgen Lps Ef 5-6 10mm [id number] 0 Implanted:Qty : 1 on 08/15/2017 by [place] Maria MD at [facility] Total Joint Component/In sert Left: Knee [employer] 06/11/2025 00-5964-0 40-10 / / [id number] Imp Comp Patella Zim Nexgen 9.0x35mm Implanted:Qty : 1 on 08/15/2017 by Russell Maria MD at [facility] Total Joint Component/In sert Left: Knee [employer] 05/11/2025-5972-0 65-35 / / [id number] Procedures Procedure Name Priority Date/Time Associated Diagnosis Comments XR RIBS & CHEST RT 3VW STAT 10/23/2023 1:54 PM CDT XR SHOULDER RIGHT G/E 3 VIEWS STAT 10/23/2023 1:53 PM CDT GLUCOSE BY METER Routine 02/14/2022 5:45 AM CLINIC CHARGE NURSE MA DIAGNOSTIC DIGITAL RIGHT Routine 08/13/2011 12:50 [...] XR RIBS and CHEST RT 3VW LOCATION: [facility] DATE: 10/23/2023 INDICATION: Pain. Fall right lateral chest. COMPARISON: None. Procedure Note Abel Quinones MD - 10/23/2023 EXAM: XR RIBS and CHEST RT 3VW LOCATION: [facility] DATE: 10/23/2023 INDICATION: Pain. Fall right lateral chest. COMPARISON: None. IMPRESSION: 1. The cardiomediastinal silhouette and pulmonary vasculature appearnormal. No infiltrates or effusions. 2. Nondisplaced lateral right seventh rib fracture. There is no evidenceof pneumothorax. John Salas MD [facility] DIAGNOSTIC IMAGI NG ORDERABLES * XR Shoulder [...] XR SHOULDER RIGHT G/E 3 VIEWS LOCATION: [facility] DATE: 10/23/2023 INDICATION: Pain. COMPARISON: None. Procedure Note Abel Quinones MD - 10/23/2023 EXAM: XR SHOULDER RIGHT G/E 3 VIEWS LOCATION: [facility] DATE: 10/23/2023 INDICATION: Pain. COMPARISON: None. IMPRESSION: Small subacromial enthesophyte. Mild osteoarthrosis of the ACjoint. Otherwise negative. No fracture. No subluxation or dislocation. John Salas MD [facility] DIAGNOSTIC IMAGI NG ORDERABLES * (ABNORMAL) Glucose by meter (02/14/2022 5:45 AM CLINIC CHARGE NURSE) [facility] GLUCOSE BY METER POCT 160(H) 70 - 99 mg/dL 02/14/2022 5:51 AM CLINIC CHARGE NURSE LABORATORY POC Blood, Capillary BLOOD SPECIMEN / Unknown 02/14/2022 5:45 AM CLINIC CHARGE NURSE 02/14/2022 5:51 AM CLINIC CHARGE NURSE [facility] POCT LABORATORY POC [facility] Acute Care Lab [address] floor, [address] [place] [address], [facility] [phone] * Mammo diagnostic Digital right* (08/13/2011 12:50 [...] Holloway Report Patient Name: GLORIA BONILLA MR#: [id number] Specimen #: [id number] Collected: 07/30/2011 Received: 08/02/2011 Reported: 08/04/2011 07:45 [...] ALEXANDRE Monge (ASCP) Processed and screened at [facility], [facility] CLINICAL HISTORY: Post Menopausal, Previous normal pap Date of Last Pap: 08-22-09, Papanicolaou Test Limitations: ??Cervical cytology is a screening test with limited sensitivity; regular screening is critical for cancer prevention; Pap tests are primarily effective for the diagnosis/preventi on of squamous cell carcinoma, not adenocarcinomas or other cancers. TESTING LAB LOCATION: [facility] [address] [place], [place] ??[address] COLLECTION SITE: Client: ??[facility] Location: HE (Cynthia [facility] Cytologic material (specimen) 07/30/2011 5:21 PM CDT 08/02/2011 10:30 AM CDT Idania Gutierres MD LAB - OPTIME CLINICA L SPECIMEN COPATH * (ABNORMAL) Lipid panel reflex to direct LDL (07/30/2011 2:52 PM CDT) Cholesterol 246(H) 0 - 200 mg/dL [facility] Comment: LDL Cholesterol is the primary guide to therapy. The NCEP recommends further evaluation of: patients with cholesterol greater than 200 mg/dL if additional risk factors are present, cholesterol greater than 240 mg/dL, triglycerides greater than 150 mg/dL, or HDL less than 40 mg/dL. Triglycerides 169(H) 0 - 150 mg/dL [facility] HDL Cholesterol 68 50 - 110 mg/dL [facility] LDL Cholesterol Calculated 144(H) 0 - 129 mg/dL [facility] Comment: LDL Cholesterol is the primary guide to therapy: LDL-cholesterol goal in high risk patients is <100 mg/dL and in very high risk patients is <70 mg/dL. VLDL-Cholesterol 34(H) 0 - 30 mg/dL [facility] Cholesterol/HDL Ratio 3.6 0.0 - 5.0 [facility] Blood specimen (specimen) 07/30/2011 2:52 PM CDT 07/30/2011 2:57 PM CDT Idania Gutierres MD LAB - BLOOD ORDERABL ES Performing Organization Address [facility]/State/ZIP Co de Phone Number [facility] * DEXA,BONE DENSITY,AXIAL SKELETON (07/17/2007) Anatomical Region Laterality Modality Bone Mineral Den sity Impressions 07/17/2007 BONE DENSITOMETRY [facility] July 17, 2007 PATIENT: ??Gloria Bonilla CHART: <[id number]> : ??1955 AGE: ??51 year old SEX: ??female REFERRING PHYSICIAN: ??Idania Gutierres M.D, ?? PROCEDURE: ??Bone density scanning was performed using DEXA technology performed on a Neurescue Scanner. ??Reporting is completed in the form of a T-score. ??The T-score represents the standard deviation from peak bone mass based on a young healthy adult. Finance Specialist performing scan: ??Chiquita Ward REFERENCE T-SCORES: ? [...] Impressions Jaqui Nelson - 03/21/2003 00:00 ??Operative Report-ON LICENSE OF [facility] ??AZAR DE LA TORRE () ?? [Entered: [...] AZAR DE LA TORRE MD MT: Document: [id number] [place], [place] Name: GLORIA BONILLA LCN: ??ENDO DSC: 03/21/2003 [place], [place] Name: MR#: : Procedure Date: GLORIA BONILLA -52 1955 03/[birth year]/2003 Doctor: ??AZAR DE LA TORRE MD OPERATIVE REPORT Page 1 of 2 Idania Gutierres MD PROCEDURES from Last 3 Months or Most Recently Relevant to Health Maintenance Advance Directives For more information, please contact: [phone] * Full Code (Latest Code Status on File) Date Activated Date Inactivated Comments 02/13/2022 12:22 AM 02/14/2022 6:34 PM All basic a nd advanced life-sustaining interventions are performed as appropriate Question Answer Comments Code status determined by: Discussion with patie nt/ legal decision maker * Full Code Date Activated Date Inactivated Comments 08/15/2017 2:37 PM 08/18/2017 2:24 PM Care Teams Concrete Pipe Machine Operator Relationship Specialty Start Date End Date No Ref-Primary, Physician PCP - General 04/29/17
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
--- OUTSIDE RECORDS SUMMARY | 2023-11-17 13:00 | XMS_ITS | Encounter Summary ---
Author Organization [place] Address [address] [place] [address] Care Team Providers Care Non Destructive Testing Specialist Name Role Phone No Ref-Primary, Physician Primary [...] on filedocumented in this encounter Care Teams Non Destructive Testing Specialist Relationship Specialty Start Date End Date No Ref-Primary, Physician PCP - General 04/29/17 documented as of this encounter
--- OUTSIDE RECORDS SUMMARY | 2023-11-17 13:00 | XMS_ITS | Clinical Summary ---
Author Organization [place] Address [address] [facility] [place] [address] Care Team Providers Care Farm General Manager Name Role Phone No Ref-Primary, Physician [...] mention of other manifestation Overview: treated at [facility] Leiomyoma of uterus Overview: Problem list name updated by automated process. Provider to review Resolved Problems Problem Noted Date Diagnosed Date Resolved Date Neck pain 12/26/2009 04/11/2010 IAMTEAR LAT MENISC KNEE-CURRENT 05/24/2005 06/28/2005 IAMPOSTSURGICAL STATES NEC 05/24/2005 0 06/28/2005 Encounters Date Type Department Care Team Description 10/23/2023 1:09 PM CDT - 10/23/2023 3:03 PM CDT Emergency [facility] Emergency Dept [address] [place] [address] John Salas MD Closed fracture of one rib of right side, initial encounter; Contusion of right shoulder, initial encounter Discharge Disposition: Home or Self Care 10/23/2023 Travel from Last 3 Months Immunizations Name Administration Dates Next Due Influenza (IIV3) PF 12/26/2010 TDAP Vaccine (Adacel) 08/22/2009 Family History Medical History Relation Comments C.A.D. Brother 1 Born 1939, [place] at age 69, also lumbar fusion Family History Negative Brother 2 Born [birth year] 2 C.A.D. Father age 67, [place] in his 20's or 30's (?); had [...] ARGED VENTRICLE - TREATED BY CARDS AT [facility] Relation Status Comments Brother 1 Brother 2 Father (Age 67) Mother Alive Sister 1 Sister 2 Sister 3 Son 1 Alive age 19 - has an enlarged ventrile and HTN - is on BP medication - followed by cards at [facility] Son 2 Alive age 15 - Has an enlarged ventricle and HTN - is on BP medication - followed by cards at [facility] Son 3 Alive age 22 - healthy [...] 03/2011, 07/30/2011, Additional history exists RSV VACCINE (1 - 1-dose 60+ series) 2016 FALL RISK ASSESSMENT 2021 Pneumococcal Vaccine: 65+ Years (2 of 2 - PCV) 2021 11/05/2013 DEXA 07/16/2022 07/17/2007, 02/28/2006 MEDICARE ANNUAL WELLNESS VISIT 09/17/2022 09/17/2021, 07/30/2011, 08/22/2009, Additional history exists PHQ-2 (once per calendar year) 2023 11/11/2021 DTAP/TDAP/TD IMMUNIZATION (4 - Td or Tdap) 10/03/2023 10/02/2013, 09/24/2013, 08/22/2009 COVID-19 Vaccine ( season) 2023 01/05/2023, 07/30/2022, 12/17/2021, Additional history exists INFLUENZA VACCINE (#1) 2023 , 01/23/2021, 01/25/2020, Additional history exists GLUCOSE 02/14/2025 [...] this topic Medical Devices Implanted Type Area Glazier Helper Device Identifier Shelf Expiration Date Model / Serial / Lot Bone Cement Simplex Full Dose 6191-1-001 Implanted:Qty : 1 on 08/15/2017 by [place] Maria MD at [facility] Cement, Bone Left: Knee [employer] 11/12/2019 6191-1-00 1 / / [id number] Imp Plate Tibial Zim Nexgen Size 5 Implanted:Qty : 1 on 08/15/2017 by [place] Maria MD at [facility] Metallic Hardware/Anc hor Left: Knee [employer] 05/12/2027 00-5980-0 47- / / [id number] Imp Comp Femoral Zim Nexgen H Ps Lt [id number] 1 Implanted:Qty : 1 on 08/15/2017 by [place] Maria MD at [facility] Total Joint Component/In sert Left: Knee [employer] 10/11/2026 00-5996-0 18-51 / / [id number] Imp Art Surface Zim Nexgen Lps Ef 5-6 10mm [id number] 0 Implanted:Qty : 1 on 08/15/2017 by [place] Maria MD at [facility] Total Joint Component/In sert Left: Knee [employer] 06/11/2025-5964-0 40-10 / / [id number] Imp Comp Patella [employer]im [employer] 9.0x35mm Implanted:Qty : 1 on 08/15/2017 by [place] Maria MD at [facility] Total Joint Component/In sert Left: Knee [employer] 05/11/2025-5972-0 65-35 / / [id number] Procedures Procedure Name Priority Date/Time Associated Diagnosis Comments XR RIBS & CHEST RT 3VW STAT 10/23/2023 1:54 PM CDT XR SHOULDER RIGHT G/E 3 VIEWS STAT 10/23/2023 1:53 PM CDT GLUCOSE BY METER Routine 02/14/2022 5:45 AM MACHINE DESIGN ENGINEER MA DIAGNOSTIC DIGITAL RIGHT Routine 08/13/2011 12:50 [...] XR RIBS and CHEST RT 3VW LOCATION: [facility] DATE: 10/23/2023 INDICATION: Pain. Fall right lateral chest. COMPARISON: None. Procedure Note Abel Quinones MD - 10/23/2023 EXAM: XR RIBS and CHEST RT 3VW LOCATION: [facility] DATE: 10/23/2023 INDICATION: Pain. Fall [...] XR SHOULDER RIGHT G/E 3 VIEWS LOCATION: [facility] DATE: 10/23/2023 INDICATION: Pain. COMPARISON: None. Procedure Note Abel Quinones MD - 10/23/2023 EXAM: XR SHOULDER RIGHT G/E 3 VIEWS LOCATION: [facility] DATE: 10/23/2023 INDICATION: Pain. COMPARISON: None. IMPRESSION: Small subacromial enthesophyte. Mild osteoarthrosis of the ACjoint. Otherwise negative. No fracture. No subluxation or dislocation. John Salas MD IMG DIAGNOSTIC IMAGI NG ORDERABLES * (ABNORMAL) Glucose by meter (02/14/2022 5:45 AM MACHINE DESIGN ENGINEER) [facility] GLUCOSE BY METER POCT 160(H) 70 - 99 mg/dL 02/14/2022 5:51 AM MACHINE DESIGN ENGINEER LABORATORY POC Blood, Capillary BLOOD SPECIMEN / Unknown 02/14/2022 5:45 AM MACHINE DESIGN ENGINEER 02/14/2022 5:51 AM MACHINE DESIGN ENGINEER Chilango Ross MD [facility] POCT LABORATORY POC [facility] Acute Care Lab [address] 1[address] floor, [address] [place] [address], [facility] [phone] * Mammo diagnostic Digital right* (08/13/2011 12:50 [...] the interim. Idania Gutierres MD IMG MAMMOGRAPHY ORDE RABLES * PAP imaged thin layer, screen (07/30/2011 5:21 PM CDT) PAP ANN Holloway Report Patient Name: GLORIA BONILLA MR#: [id number] Specimen #: [id number] Collected: 07/30/2011 Received: 08/02/2011 Reported: 08/04/2011 07:45 [...] ALEXANDRE Monge (ASCP) Processed and screened at [facility], [facility] CLINICAL HISTORY: Post Menopausal, Previous normal pap Date of Last Pap: 08-22-09, Papanicolaou Test Limitations: ??Cervical cytology is a screening test with limited sensitivity; regular screening is critical for cancer prevention; Pap tests are primarily effective for the diagnosis/preventi on of squamous cell carcinoma, not adenocarcinomas or other cancers. TESTING LAB LOCATION: [address] ??[address] COLLECTION SITE: Client: ??[facility] Location: HE [facility] (R) Cytologic material (specimen) 07/30/2011 5:21 PM CDT 08/02/2011 10:30 AM CDT Idania Gutierres MD LAB - OPTIME CLINICA L SPECIMEN COPATH * (ABNORMAL) Lipid panel reflex to direct LDL (07/30/2011 2:52 PM CDT) Cholesterol 246(H) 0 - 200 mg/dL [facility] Comment: LDL Cholesterol is the primary guide to therapy. The NCEP recommends further evaluation of: patients with cholesterol greater than 200 mg/dL if additional risk factors are present, cholesterol greater than 240 mg/dL, triglycerides greater than 150 mg/dL, or HDL less than 40 mg/dL. Triglycerides 169(H) 0 - 150 mg/dL [facility] HDL Cholesterol 68 50 - 110 mg/dL [facility] LDL Cholesterol Calculated 144(H) 0 - 129 mg/dL [facility] Comment: LDL Cholesterol is the primary guide to therapy: LDL-cholesterol goal in high risk patients is <100 mg/dL and in very high risk patients is <70 mg/dL. VLDL-Cholesterol 34(H) 0 - 30 mg/dL [facility] Cholesterol/HDL Ratio 3.6 0.0 - 5.0 [facility] Blood specimen (specimen) 07/30/2011 2:52 PM CDT 07/30/2011 2:57 PM CDT Idania Gutierres MD LAB - BLOOD ORDERABL ES Performing Organization Address [facility]/State/[facility] Co de Phone Number [facility] * DEXA,BONE DENSITY,AXIAL SKELETON (07/17/2007) Anatomical Region Laterality Modality Bone Mineral Den sity Impressions 07/17/2007 BONE DENSITOMETRY [facility] July 17, 2007 PATIENT: ??Gloria Bonilla CHART: <[id number]> : ??1955 AGE: ??51 year old SEX: ??female REFERRING PHYSICIAN: ??Idania Gutierres M.D, ?? PROCEDURE: ??Bone density scanning was performed using DEXA technology performed on a UbiCast Scanner. ??Reporting is completed in the form of a T-score. ??The T-score represents the standard deviation from peak bone mass based on a young healthy adult. Manager Talent performing scan: ??Chiquita Ward REFERENCE T-SCORES: ? [...] AZAR DE LA TORRE MD MT: Document: [id number] [place], [place] Name: GLORIA BONILLA LCN: ??ENDO DSC: 03/21/2003 [place], [place] Name: MR#: : Procedure Date: GLORIA BONILLA -52 1955 03/21/2003 Doctor: ??AZAR DE LA TORRE MD OPERATIVE REPORT Page 1 of 2 Idania Gutierres MD PROCEDURES from Last 3 Months or Most Recently Relevant to Health Maintenance Advance Directives For more information, please contact: [phone] * Full Code (Latest Code Status on File) Date Activated Date Inactivated Comments 02/13/2022 12:22 AM 02/14/2022 6:34 PM All basic a nd advanced life-sustaining interventions are performed as appropriate Question Answer Comments Code status determined by: Discussion with patie nt/ legal decision maker * Full Code Date Activated Date Inactivated Comments 08/15/2017 2:37 PM 08/18/2017 2:24 PM Care Teams Farm General Manager Relationship Specialty Start Date End Date No Ref-Primary, Physician PCP - General 04/29/17
--- OUTSIDE RECORDS SUMMARY | 2023-11-17 13:00 | XMS_ITS | Clinical Summary ---
Author Organization [facility] [address] [address] Care Team Providers Care Beverage Distiller Name Role Phone Clinician, Not Found MD Primary Care Provider Un available Source Comments You are receiving this document as you are listed as the primary care provider,follow-up provider, or the patient has been referred to you for consultation.This is in compliance with the Medicare andBlanch[facility] Valley Health Systemcaid EHR Incentive Program,which states Providers who transition their patient to another setting of careor provider of care or refers their patient to another provider of care shouldprovide summary care record for each transition of care or referral. [facility] [employer] Allergies Active Allergy Reactions Criticality Noted Date [...] 65+ Yrs (2 - PCV) 2021 11/05/2013 DTaP/Tdap/Td (4 - Tdap) 10/03/2023 10/03/19 14, 09/24/2013, 08/22/2009 COVID-19 Vaccine ( - season) 2023 07/06/2021, 08/28/2020, 07/29/2020 Influenza (#1) 2023 01/23/2021, 01/12, 01/25/2020, Additional [...] age to complete this topic Care Teams Beverage Distiller Relationship Specialty Start Date End Date Clinician, Not Found, [place] [address] PCP - General 04/23/13
--- OUTSIDE RECORDS SUMMARY | 2023-11-17 13:00 | XMS_ITS | Encounter Summary ---
Author Organization [place] Address [address] [place] [address] Care Team Providers Care Cupola Worker Name Role Phone No Ref-Primary, Physician Primary Care Provider Jennifer Gastelum MD Unavailable [phone] Encounter Details Date Type Department Care Team (Late st Contact Info) Description 07/26/2017 Orders Only [facility] [address] [place] [address] [facility] [address] [place] [address] [place] [phone] Pre-operative laboratory examination (Primary Dx) Social History [...] Specimen Description Gavin 07/27/2017 9:15 AM CDT [facility] Methicillin Resist/Sens S. aureus PCR Negative NEG^Negat kim 07/27/2017 2:32 PM CDT [facility] Comment: MRSA Negative: SA Positive MRSA target [...] nasal colonization. FDA approved assay performed using [employer] OncologyXpert(R) real-time PCR. Nasal structure (body structure) 07/27/2017 9:10 AM CDT 07/27/2017 9:20 AM CDT Russell Maria MD LAB - MICRO GENE RAL ORDERABLES [facility] [address] [phone] documented in this encounter Visit Diagnoses Diagnosis Pre-operative laboratory examination- Primary Pre-procedural laboratory examination documented in this encounter Care Teams Cupola Worker Relationship Specialty Start Date End Date No Ref-Primary, Physician PCP - General 04/29/17 Jennifer Gastelum MD [address] [place] [id number] Assigned Surgical Provider 11/21/21 documented as of this encounter
--- OUTSIDE RECORDS SUMMARY | 2023-11-17 13:00 | XMS_ITS | Encounter Summary ---
Author Organization [place] Address [address] [facility] [place] [address] Care Team Providers Care Pharmacometrician Name Role Phone No Ref-Primary, Physician Primary Care Provider Jennifer Gastelum MD Unavailable [phone] Reason for Visit * Reason Onset Date Comments Appointment 09/25/2021 Sooner appt Encounter Details Date Type Department Care Team (Late st Contact Info) Description 09/25/2021 Telephone [facility] [address] [place] [address] Fredrick Velarde MD [address] [id number] Appointment (Sooner appt) Social History Tobacco Use [...] Franklin CNA - 09/25/2021 10:24 AM CDT [facility] Call Center Phone Message May a [...] on filedocumented in this encounter Care Teams Pharmacometrician Relationship Specialty Start Date End Date No Ref-Primary, Physician PCP - General 04/29/17 Jennifer Gastelum MD [address] [place] [address] Assigned Surgical Provider 11/21/21 documented as of this encounter
--- OUTSIDE RECORDS SUMMARY | 2023-11-17 13:01 | XMS_ITS | Clinical Summary ---
Author Organization [facility] Address [place], [place] [address] Care Team Providers Care Jig And Fixture Repairer Name Role Phone Jose R Wells MD Primary Care Provider [phone] Allergies Active Allergy Reactions Criticality Noted Date [...] 12/18/2021 12/18/2020 COVID-19 vaccine series ( season) 2023 07/06/2021, 08/28/2020, 07/29/2020 Influenza for age 65+ 11/13/2023 Advance Directives * Full Code (Latest Code Status on File) Date Activated Date Inactivated Comments 07/20/2021 2:56 AM 07/22/2021 2:38 PM Question Answer Comments Code Status Discussion: Reviewed Preferences Care Teams Jig And Fixture Repairer Relationship Specialty Start Date End Date Jose R Wells MD PCP - General Family Practice 06/26/21
--- OUTSIDE RECORDS SUMMARY | 2023-11-17 13:01 | XMS_ITS ---
Author Organization [facility] Address [address] [place] [address] Care Team Providers Care Wharf Attendant Name Role Phone Unavailable Unavailable Unavailable Surgery Details Not on file Complications Check Surgery Details section. Procedure Estimated Blood Loss Check Surgery Details section. Procedure Findings Check Surgery Details section. Procedure Specimens Taken Check Surgery Details section.
--- OUTSIDE RECORDS SUMMARY | 2023-11-17 13:01 | XMS_ITS | Encounter Summary ---
Author Organization [place] Address [address] [place] [address] Care Team Providers Care Peanut Picker Name Role Phone Vincenzo Grimaldo MD Primary Care Provider [phone] Arias Salvador MD Primary Care Provider [phone] No Ref-Primary, Physician Primary Care Provider Jennifer Gastelum MD Unavailable [phone] Encounter Details Date Type Department Care Team (Late st Contact Info) Description 07/27/2007 MyC Medical Advice [address] [place] [address] Vincenzo Grimaldo MD [address] [place] [address] Social History Tobacco Use Types [...] on filedocumented in this encounter Care Teams Peanut Picker Relationship Specialty Start Date End Date Vincenzo Grimaldo MD PCP - General 07/07/07 02/24/14 Arias Salvador MD [facility] [address] [place] [address] PCP - General 02/25/14 04/28/17 No Ref-Primary, Physician PCP - General 04/29/17 Jennifer Gastelum MD [address] [facility] [address] [place] [address] Assigned Surgical Provider 11/21/21 documented as of this encounter
--- OUTSIDE RECORDS SUMMARY | 2023-11-17 13:01 | XMS_ITS | Clinical Summary ---
Author Organization [facility] Address [address] [place] [address] Care Team Providers Care Hat And Cap Sewer Name Role Phone Elsewhere, Pcp Primary Care Provider Unavailabl e Source Comments Patient records contain information from all sites at [facility]. For routine questions regarding patient records, call [phone] during business hours, M-F 8:00 AM - 5:00 PM Central Time. Record requests for emergency care only can be directed to [phone] at any time.[facility] Allergies No known active allergies Medications Medication [...] Comments Blood Pressure 127/66 02/12/2022 9:00 PM WINDOWS [employer] DE[employer]MENT LEAD Pulse 60 02/12/2022 9:00 PM WINDOWS [employer]MENT LEAD Temperature 36.6 ??C (97.9 ??F) 02/12/2022 6:21 PM CS T Respiratory Rate 20 02/12/2022 7:10 PM WINDOWS 7 DE[employer]MENT LEAD Oxygen Saturation 97% 02/12/2022 8:45 PM WINDOWS 7 DE[employer]MENT LEAD Inhaled Oxygen Concentration - - Weight 106 kg (233 lb 3.2 oz) 02/12/2022 4:31 PM WINDOWS 7 DEPL[employer]MENT LEAD Height 177.8 cm (5' 10) 02/12/2022 4:31 PM WINDOWS 7 DEPLOYMENT LEAD Body Mass Index 33.46 02/12/2022 4:31 PM WINDOWS 7 DEPLOYMENT LEAD Plan of Treatment Health Maintenance Due Date [...] 02/13/2022, 05/0 10/2021, 07/18/2021, Additional history exists Depression Screening (Annual PHQ-2) 03/14/2023 Fall Risk Screen (Annual) 03/14/2023 DTaP,Tdap,and Td Vaccines (3 - Td or Tdap) 09/25/2023 09/24/2013, 08/22/2009 COVID-19 Vaccine ( season) 2023 01/05/2023, 07/30/2022, 12/17/2021, Additional history exists Influenza Vaccine (#1) 2023 , 01/23/2021, 01/25/2020, [...] WITH EGFR, S/P Routine 04/19/2016 2:25 PM WINDOWS [employer] DE[employer]MENT LEAD CHRONIC VIRAL HEPATITIS PROFILE Routine 03/31/2015 12:42 PM WINDOWS [employer]MENT LEAD HEMOGLOBIN A1C, B Routine 03/30/2015 12: 06 PM WINDOWS [employer]MENT LEAD BASIC METABOLIC PANEL, S/P Routine 11/05/2013 10:48 AM CDT BI BREAST SCREENING BILATERAL Routine 10/15/2013 9:58 AM CDT PATHOLOGY [facility]OOK CYTOLOGY Routine 10/15/2013 12:00 AM CDT from Last 3 Months or Most Recently Relevant to Health Maintenance Results * Creatinine with eGFR (04/19/2016 2:25 PM WINDOWS [employer]MENT LEAD) Creatinine 0.7 0.6 - 1.1 MGDL POWERCHART HXeGFR (MDRD) >60.0 >=60.0 MLMINSA POWERCHART eGFR Black/ >60.0 >=60.0 MLMINSA POWERCHART Blood 04/19/2016 2:25 PM WINDOWS [employer] DEPL[employer]MENT LEAD Nicole Mariano LAB BLOOD ADD-ON POWERCHART * Chronic Hepatitis Profile (03/31/2015 12:42 PM WINDOWS [employer] DE[employer]MENT LEAD) HBc Total Ab, S Negative Negative [facility] HBs Antibody,S Negative Unvaccinated : Negative; Vaccinated: Positive [facility] Comment:Patient is presumed to be not immune to infection with HBV. HBs Antibody, Quantitative, S <5.0 Unvaccinated : <5.0; Vaccinated: >=12.0 MIU/ML [facility] HBs Antigen, S Negative Negative [facility] HCV Ab, S Negative Negative [facility] Comment:Qqevxd-zv-cdbzau rat io is <1.00. 03/31/2015 12:4 2 PM WINDOWS 7 DEPLOYMENT LEAD 03/31/2015 12:42 PM WINDOWS 7 DE[employer]MENT LEAD Nicole Mariano LAB MICROBIOLOGY - BLOOD ORDERABLES [facility] [address] * (ABNORMAL) Hemoglobin A1c (03/30/2015 12:06 PM WINDOWS [employer] DEPL[employer]MENT LEAD) Hemoglobin A1c, B 6.3(H) <=5.6 A1C POWERCHART Blood 03/30/2015 12:0 6 PM WINDOWS [employer]MENT LE[employer] Maninder Salvador M.D. LAB BLOOD ADD-ON Performing Organization Address City/[facility]/ZIP Co de Phone Number POWERCHART * BMP [...] Flynn.T.(R)(CT), RAaronTAaron(R)(M) IMG BI PROCEDURES * Pathology [facility] Cytology (10/15/2013 12:00 AM CDT) 10/15/2013 Narrative [facility] - 10/24/2013 9:16 AM CDT [facility] [place] [address] [facility] [address] [place], [place] ??[address] Patient Name: GLORIA GARCIA Collected: 10/15/2013 Address: City/State/Zip: [address] [place], [place] ??[address] Received: Reported: 10/16/2013 10/24/2013 Soc. Sec. #: ?/Age/Sex 1955 (Age: 57) ??F Physician(s): THERESE GUTIERREZ MD Copy To: ? [facility] ??[id number] [address] [place] [address], ??[place] ??[address] CYTOPATHOLOGY [facility] REPORT FINAL CYTOLOGIC DIAGNOSIS Pap Smear - [...] ASCUS Bird Gutierrez M.D. LAB PAP COPATH Diimtry [facility] LAB from Last 3 Months or Most Recently Relevant to Health Maintenance Care Teams Hat And Cap Sewer Relationship Specialty Start Date End Date Elsewhere, Pcp PCP - General Internal Medicine 11/21/21
--- OUTSIDE RECORDS SUMMARY | 2023-11-17 13:01 | XMS_ITS | Referral Summary ---
Author Organization [facility] Address [address] [place] [address] Care Team Providers Care Clarity Specialists Name Role Phone Elsewhere, Pcp Primary Care Provider Unavailabl e Source Comments Patient records contain information from all sites at [facility]. For routine questions regarding patient records, call [phone] during business hours, M-F 8:00 AM - 5:00 PM Central Time. Record requests for emergency care only can be directed to [phone] at any time.[facility] Allergies No known active allergies Medications Medication [...] Comments Blood Pressure 127/66 02/12/2022 9:00 PM COREMAKER PIPE Pulse 60 02/12/2022 9:00 PM COREMAKER PIPE Temperature 36.6 ??C (97.9 ??F) 02/12/2022 6:21 PM CS T Respiratory Rate 20 02/12/2022 7:10 PM COREMAKER PIPE Oxygen Saturation 97% 02/12/2022 8:45 PM COREMAKER PIPE Inhaled Oxygen Concentration - - Weight 106 kg (233 lb 3.2 oz) 02/12/2022 4:31 PM COREMAKER PIPE Height 177.8 cm (5' 10) 02/12/2022 4:31 PM COREMAKER PIPE Body Mass Index 33.46 02/12/2022 4:31 PM COREMAKER PIPE Plan of Treatment Not on file Procedures Procedure Name Priority Date/Time Associated Diagnosis Comments CREATININE WITH EGFR, S/P Routine 04/19/2016 2:25 PM COREMAKER PIPE CHRONIC VIRAL HEPATITIS PROFILE Routine 03/31/2015 12:42 PM COREMAKER PIPE HEMOGLOBIN A1C, B Routine 03/30/2015 12: 06 PM COREMAKER PIPE BASIC METABOLIC PANEL, S/P Routine 11/05/2013 10:48 AM CDT BI BREAST SCREENING BILATERAL Routine 10/15/2013 9:58 AM CDT PATHOLOGY REFERRAL NURSE CYTOLOGY Routine 10/15/2013 12:00 AM CDT from Last 3 Months or Most Recently Relevant to Health Maintenance Results * Creatinine with eGFR (04/19/2016 2:25 PM COREMAKER PIPE) Creatinine 0.7 0.6 - 1.1 MGDL POWERCHART HXeGFR (MDRD) >60.0 >=60.0 MLMINSA POWERCHART eGFR Black/ >60.0 >=60.0 MLMINSA POWERCHART Blood 04/19/2016 2:25 PM COREMAKER PIPE Nicole Mariano LAB BLOOD ADD-ON POWERCHART * Chronic Hepatitis Profile (03/31/2015 12:42 PM COREMAKER PIPE) HBc Total Ab, S Negative Negative [facility] HBs Antibody,S Negative Unvaccinated : Negative; Vaccinated: Positive [facility] Comment:Patient is presumed to be not immune to infection with HBV. HBs Antibody, Quantitative, S <5.0 Unvaccinated : <5.0; Vaccinated: >=12.0 MIU/ML [facility] HBs Antigen, S Negative Negative [facility] HCV Ab, S Negative Negative [facility] Comment:Nozgzm-no-aljxkt rat io is <1.00. 03/31/2015 12:4 2 PM COREMAKER PIPE 03/31/2015 12:42 PM COREMAKER PIPE Nicole Mariano LAB MICROBIOLOGY - BLOOD ORDERABLES [facility] [address] * (ABNORMAL) Hemoglobin A1c (03/30/2015 12:06 PM COREMAKER PIPE) Hemoglobin A1c, B 6.3(H) <=5.6 A1C POWERCHART Blood 03/30/2015 12:0 6 PM COREMAKER PIPE Maninder Salvador M.D. LAB BLOOD ADD-ON POWERCHART [...] Isaac(R)(CT), R.T.(R)(M) IMG BI PROCEDURES * Pathology REFERRAL NURSE Cytology (10/15/2013 12:00 AM CDT) 10/15/2013 Narrative [facility] - 10/24/2013 9:16 AM CDT [facility] [place] [address] [place], [place] ??[address] Patient Name: GLORIA GARCIA Collected: 10/15/2013 Address: City/State/Zip: [address] [place], [place] ??[address] Received: Reported: 10/16/2013 10/24/2013 Soc. Sec. #: ?/Age/Sex 1955 (Age: 57) ??F Physician(s): THERESE GUTIERREZ MD Copy To: ? [facility] ??[id number] [address] [place] [address], ??[place] ??[address] CYTOPATHOLOGY REFERRAL NURSE REPORT FINAL CYTOLOGIC DIAGNOSIS Pap Smear - [...] Gutierrez M.D. LAB PAP COPATH [facility] LAB from Last 3 Months or Most Recently Relevant to Health Maintenance Care Teams Clarity Specialists Relationship Specialty Start Date End Date Elsewhere, Pcp PCP - General Internal Medicine 11/21/21
--- OUTSIDE RECORDS SUMMARY | 2023-11-17 13:01 | XMS_ITS | Encounter Summary ---
Author Organization [place] Address [address] [facility] [place] [address] Care Team Providers Care Millwright Apprentice Name Role Phone Vincenzo Grimaldo MD Primary Care Provider Arias Salvador MD Primary Care Provider [phone] No Ref-Primary, Physician Primary Care Provider Jennifer Gastelum MD Unavailable [phone] Reason for Visit * Reason Onset Date Comments Refill Request 04/07/2010 Tramadol Encounter Details Date Type Department Care Team (Late st Contact Info) Description 04/07/[address] [place] [address] Vincenzo Grimaldo MD [address] [address] [place], [place] [id number] Refill Request (Tramadol) Social History Tobacco Use [...] for Tramadol. Last filled 01/14/10. authorization required. UM DIRECTOR documented in this encounter Plan of Treatment Not on file documented as of this encounter Visit Diagnoses Diagnosis Cervicalgia Headache(784.0) Headache documented in this encounter Care Teams Millwright Apprentice Relationship Specialty Start Date End Date Vincenzo Grimaldo MD PCP - General 07/07/07 02/24/14 Arias Salvador MD [facility] [address] [place] [address] PCP - General 02/25/14 04/28/17 No Ref-Primary, Physician PCP - General 04/29/17 Jennifer Gastelum MD [address] [place] [address] [address] [place] [address] Assigned Surgical Provider 11/21/21 documented as of this encounter
--- OUTSIDE RECORDS SUMMARY | 2023-11-17 13:01 | XMS_ITS | Encounter Summary ---
Author Organization [place] Address [address] [place] [address] Care Team Providers Care Mold Release Worker Name Role Phone Vincenzo Grimaldo MD Primary Care Provider [phone] Arias Salvador MD Primary Care Provider [phone] No Ref-Primary, Physician Primary Care Provider Jennifer Gastelum MD Unavailable Encounter Details Date Type Department Care Team (Late st Contact Info) Description 08/26/2011 MyC Medical Advice [address] [place] [address] Vincenzo Grimaldo MD [address] [place] [address] Social History Tobacco Use Types [...] on filedocumented in this encounter Care Teams Mold Release Worker Relationship Specialty Start Date End Date Vincenzo Grimaldo MD PCP - General 07/07/07 02/24/14 Arias Salvador MD [facility] [address] [place], [place] [id number] PCP - General 02/25/14 04/28/17 No Ref-Primary, Physician PCP - General 04/29/17 Jennifer Gastelum MD [address] [place] [address] [address] [place] [address] Assigned Surgical Provider 11/21/21 documented as of this encounter
--- OUTSIDE RECORDS SUMMARY | 2023-11-17 13:01 | XMS_ITS | Encounter Summary ---
Author Organization [facility] Address [address] [place] [address] Care Team Providers Care Logger Driving Horses Name Role Phone Elsewhere, Pcp Primary Care [...] PHOTOS: FAF: CD Reports - EYEGEN Id: [id number] Status: Fnl documented in this encounter Plan of Treatment Not on file documented as of this encounter Visit Diagnoses Not on filedocumented in this encounter Additional Health Concerns Infection Onset Date Last Indicated Resolved Time COVID19 Pending 01/26/2020 01/26/2020 01/27/2020 6 :42 PM SENIOR ACCOUNT MANAGER COVID19 Pending 03/24/2020 03/24/2020 03/24/2020 1 1:07 PM SENIOR ACCOUNT MANAGER COVID19 Pending 04/21/2020 04/21/2020 04/21/2020 2 :23 PM SENIOR ACCOUNT MANAGER COVID19 Pending 04/21/2020 04/21/2020 04/22/2020 3 :12 PM SENIOR ACCOUNT MANAGER COVID19 Pending 05/14/2020 05/14/2020 05/14/2020 1 0:35 PM SENIOR ACCOUNT MANAGER COVID19 05/14/2020 05/14/2020 06/03/2020 4:46 AM CDT COVID19 Pending 12/26/2020 12/26/2020 12/27/2020 1 :21 PM CDT COVID19 Pending 01/05/2021 01/05/2021 01/05/2021 4 :41 PM CDT COVID19 Pending 01/05/2021 01/05/2021 01/07/2021 2 :03 AM CDT COVID19 Pending 01/30/2021 01/30/2021 01/30/2021 1 1:38 PM SENIOR ACCOUNT MANAGER COVID19 01/30/2021 01/30/2021 02/19/2021 5:07 AM SENIOR ACCOUNT MANAGER COVID19 Pending 02/12/2022 02/12/2022 02/12/2022 8 :29 PM SENIOR ACCOUNT MANAGER documented as of this encounter Care Teams Logger Driving Horses Relationship Specialty Start Date End Date Elsewhere, Pcp PCP - General Internal Medicine 11/21/21 documented as of this encounter
--- OUTSIDE RECORDS SUMMARY | 2023-11-17 13:01 | XMS_ITS | Data Portability ---
Author Organization ROBERTO - PASTE WORKER, [id number] Address [address] [place] [id number] Assessment Encounter Date Assessment Date Assessment LastModified by Organization Details LastModified Time 06/10/2021 06/10/2021 Postmenopausal bleeding, likely related to traumatic catheterization at the time of spinal fusion. No recurrent vaginal bleeding. Endometrial stripe 3 mm with no endometrial lesions identified. Patient is due for routine annual gynecologic examination. Total time spent in reviewing patient's history and outside records, discussion of patient's concerns, examination, interpreting test results, ordering additional tests, counseling with shared decision making, sending prescriptions if necessary and documentation was 24 minutes. Not available 06/13/2021 13:11:16 09/17/2021 09/17/2021 Normal gynecolog ic examination. Postmenopausal female with no acute HEAD BATCHER problems. Recent diagnosis of giant cell arteritis. Primary care provider is Dr. Reese Wells. Not available 09/27/2021 21:40:49 Plan of Treatment Reminders Order Date Submit Date Provider Last Modified By Organization Details Last Modified Time Details Appointments None recorded. Lab cytology report, thin prep, smear or scraping, cervical or vaginal 2021 [place] [facility], [address] , [place], [address], 14:07:33 Referral None recorded. Procedures None recorded. Surgeries None recorded. Imaging DEXA - Please call pt. to schedule a DEXA RITCHIE 2021 [facility], [address], [address], [place], [address], 12:18:24 Medication Orders None recorded. Patient TargetsNo targets recorded. Patient Instructions Encounter Date Encounter Id Patient Instructions Last Modified By Organization Details Last Modified Time 06/10/2021 [id number] Return for physi tripp examination in late June or early Jul, 2021. Observe for any additional or residual vaginal bleeding. Further measures to be determined. Call or return for any reason including pelvic pain, recurrent vaginal bleeding, or any other gynecologic concerns. Not available 06/13/2021 13:12:12 I discussed with Mrs. Bonilla her clinical presentation and findings on examination as well as on her outside ultrasound. The vaginal bleeding that she experienced is most likely related to the traumatic catheterization at the time of her spinal fusion. She has had no recurrence of this vaginal bleeding since that time. Pelvic ultrasound shows an atrophic endometrium with no lesions. She is due for routine gynecologic examination and she will return in late June or early July for this evaluation. In the interim, she will observe for any recurrent or residual vaginal bleeding. Patient was instructed to contact our office should she have any concerns. In the interim, a bone density evaluation is recommended in that she has not yet had a bone density evaluation. All the patient's questions were answered to her satisfaction she expressed understanding and agreement with the plan of care. Not available 06/13/2021 13:13:56 09/17/[id number] Return in 1 year for annual examination. Annual screening mammography recommended and the patient is due. Pap smear today with cotesting. Discussed bone density evaluation. Colonoscopy normal in 2016, repeat in 2026. Call for any concerns or issues. Not available 09/27/2021 22:09:07 I discussed with Gloria her clinical presentation and findings on examination. This was a normal annual gynecologic exam. She does have a primary care provider who performs routine lab assessments and her general medical needs. Bilateral screening mammogram is due, colonoscopy to be repeated as recommended. Pap smear with cotesting today, likely the patient's last Pap smear necessary. Discussed bone density evaluation and consideration with mammography. All questions answered. I discussed with her her numbness that she has developed an inability to have a sensation when she needs to void or have a bowel movement. She does have ongoing follow-up with neurology and urology with further measures to be determined. - Encouraged breast self-awareness and monthly breast exams. - Recommend mammogram annually - Encouraged regular exercise. - Discussed calcium, vitamin D, and weight bearing exercise for bone health. - Discussed osteoporosis screening guidelines. - Recommend colonoscopy at recommended intervals - Encouraged patient to establish care with a PCP to manage non-HEAD BATCHER concerns if she does not already have one. - Reviewed current cervical cancer screening guidelines. PAP smear recommendations after age 65 without a history of cervical cancer or severe dysplasia within the last 20 years discussed. - Discussed indications to call or return in the menopausal period including post menopausal bleeding Not available 09/27/2021 22:09:35 Reason for Referral None Reported. Results Created Date Observation Date Name Description Value Unit Range Abnormal Flag Note LastModifiedBy Organization Detail LastModifiedTime 09/26/19 22 09/25/2021 MAMMO , scree ana, tomos ynthe sis, bilat eral, w/ CAD No observ ation record ed. [email or web address] [facility] (Centralized Fax Number) [phone], [place], [address], 09/28/2021 10:40:37 09/30/19 22 09/25/2021 DEXA No observ ation record ed. [facility] [address], [place], [address], 12/02/2021 08:00:16 Result Notes None recorded. Procedures Surgical History Date Name Laterality Status Provider Name and Address Organization Details Recorded Time 09/26/19 Date of Last Mammogram completed [place], [place] - [employer] 09/28/2021 10:40:06 04/14/19 22 back fusion completed Kady Gonzalez(TERM ) [place], [place] - [facility] [employer] WORK[employer] 06/10/2021 15:20:43 12/07/19 17 Date of Last Pap Smear completed Kady Gonzalez(TERM ) [place] [employer] 06/10/2021 15:17:44 06/13/19 17 Date of Last Colonoscopy completed Kady Gonzalez(TERM ) [place] - [employer] 06/10/2021 15:18:00 Repair of knee cartilage completed Not Available [facility] 10/22/2019 01:05:23 tooth extraction completed Not Available [facility] 10/22/2019 01:05:23 arthroscopic knee operation completed Not Available [facility] 10/22/2019 01:05:23 Imaging Results Imaging Date Name Status LastModified by Organiz ation Details LastModified Time 09/25/2021 MAMMO, screening, tomosynthe sis, bilateral, w/ CAD completed [address]/[place] (Centralized Fax Number) [phone], [place], [address], 09/28/2021 10:40:37 09/25/2021 DEXA completed [facility] [address], [place], [address], 12/02/2021 08:00:16 Procedure Notes None recorded. Medical Equipment None Reported. Allergies Allergen ID Allergen Name Allergen Category Reaction Reaction Severity Criticality Documentation Date Start Date Code Code System Note Provider Name and Address Organization Details Recorded Time 564839 Demerol medicatio n nausea severe Not available 10/19/2019 06395 1 RxNorm Kady Gonzalez( TERM) [place], [place] - [employer] 2 15:19:38 [id number] Percodan medicatio n nausea severe Not available 10/19/2019 10716 RxNorm Kady Gonzalez( TERM) [place], [place] - [employer] 2 15:19:38 Medications Name Sig Start Date Stop Date Status Note LastModified by Organization Details LastModified Time cyclobenzap rine 10 mg tablet TAKE 1/2 TO 1 TABLET BY MOUTH THREE TIMES DAILY NEEDED active Not Available Not Available No t Available furosemide 40 mg tablet TAKE 1 TABLET BY MOUTH DAILY active Not Available Not Available No t Available primidone 50 mg tablet 1 tablet every day by oral route. active Not Available Not Available No t Available venlafaxine ER 75 mg capsule,ext ended release 24 hr TAKE ONE CAPSULE BY MOUTH DAILY WITH 150MG active Not Available Not Available No t Available atorvastati n 20 mg tablet TAKE 1 TABLET BY MOUTH AT BEDTIME active Not Available Not Available No t Available tizanidine 4 mg tablet TAKE 1 AND 1/2 TABLETS BY MOUTH EVERY 6 TO 8 HOURS NEEDED FOR PAIN OR SPASMS active Not Available Not Available No t Available prochlorper azine maleate 5 mg tablet active Not Available Not Available No t Available phenazopyri dine 200 mg tablet active Not Available Not Available Not Available ondansetron HCl 4 mg tablet TAKE 1 TABLET BY MOUTH EVERY 6 HOURS NEEDED FOR NAUSEA. active Not Available Not Available No t Available prednisone 20 mg tablet active Not Available Not Available Not Available prednisone 5 mg tablet active Not Available Not Available Not Available venlafaxine ER 150 mg capsule,ext ended release 24 hr TAKE 1 CAPSULE BY MOUTH DAILY. TAKE WITH 75 MG CAPLET. active Not Available Not Available No t Available sulfamethox azole 800 mg-trimetho prim 160 mg tablet TAKE 1 TABLET BY MOUTH TWICE DAILY IN ADDITION TO PREVIOUS PRESCRIPT ION. TO COMPLETE A 14 DAY COURSE active Not Available Not Available No t Available triamterene 37.5 mg-hydrochl orothiazide 25 mg capsule TAKE 1 CAPSULE BY MOUTH DAILY active Not Available Not Available No t Available triamcinolo ne acetonide 0.1 % topical cream APPLY 1 APPLICATI ON DIRECTED TOPICALLY TO ABDOMEN TWICE DAILY FOR 2 WEEKS THEN NEEDED active Not Available Not Available No t Available ketorolac 0.5 % eye drops active Not Available Not Available Not Available venlafaxine ER 150 mg capsule,ext ended release active Not Available Not Available Not Available prednisolon e acetate 1 % eye drops,suspe nsion 06/10 completed Not Available Not Available Not Available metformin 1,000 mg tablet TAKE 1 TABLET BY MOUTH DAILY active Not Available Not Available No t Available codeine 10 mg-guaifene sin 100 mg/5 mL oral liquid TAKE 5 TO 10 ML BY MOUTH EVERY 6 HOURS 06/10 completed Not Available Not Available Not Available loteprednol etabonate 0.5 % eye drops,suspe nsion active Not Available Not Available Not Available propranolol ER 120 mg capsule,24 hr,extended release TAKE 1 CAPSULE BY MOUTH DAILY active Not Available Not Available No t Available lorazepam 1 mg tablet TAKE 1 TABLET BY MOUTH AT BEDTIME NEEDED active Not Available Not Available No t Available ondansetron 4 mg disintegrat ing tablet DISSOLVE 1 TABLET ON THE TONGUE EVERY 6 HOURS NEEDED 06/10 completed Not Available Not Available Not Available brimonidine 0.15 % eye drops INSTILL 1 DROP BY OPHTHALMI C ROUTE DAILY INTO BOTH EYES 20 MINUTES BEFORE NIGHT DRIVING NEEDED 06/10 completed Not Available Not Available Not Available oxycodone 5 mg tablet TAKE 1 TABLET BY MOUTH EVERY 6 HOURS NEEDED FOR PAIN. active Not Available Not Available No t Available hydroxyzine pamoate 25 mg capsule TAKE 1-2 CAPSULES BY MOUTH EVERY 4-6 HOURS NEEDED FOR PAIN/MUSC LE SPASMYS. active Not Available Not Available No t Available cyclosporin e 0.05 % eye drops in a dropperette INSTILL 1 DROP IN BOTH EYES EVERY 12 HOURS active Not Available Not Available No t Available moxifloxaci n 0.5 % eye drops 06/10 completed Not Available Not Available Not Available triamterene 06/10 completed Not Available Not Available Not Available gatifloxaci n 0.5 % eye drops active Not Available Not Available Not Available Complete Multi 50+ active Not Available Not Available No t Available PreserVisio n AREDS-2 active Not Available Not Available No t Available Vitals Date Recorded Body height Provider Name an d Address Organization Details Last Updated DateTime 06/10/2021 177.8 cm Kady Gonzalez(TERM) [facility] OB/ HEAD BATCHER 06/10/2021 15:20:52 Date Recorded Body height Body mass index (BMI) Body weight Systolic blood pressure Diastolic blood pressure Provider Name and Address Organization Details Last Updated DateTime 09/17/2021 177.8 cm 32.2 kg/m2 852245.1 3 g 132 mm[Hg] 64 mm[Hg] Elvira Belle (TERMED) [facility] PASTE WORKER 16:12:34 Social History Question Answer Notes LastModified by Organizat ion Details LastModified Time Tobacco Smoking Status Never Smoker Tobacco *Status: Never *Note: 12/04/2018 - Not Available [employer] 10/22/2019 13:13:03 What Is Your Level Of Alcohol Consumption? Occasional Alcohol *Status: Current Some Day *Qty: 5-6dr/wk Information not available 10/22/2019 What Is Your Level Of Caffeine Consumption? Moderate Caffeine *Status: Current Every Day *Qty: 2c/day Information not available 06/10/2021 History Of Domestic Violence No Denies All Domestic Violence Information not available 10/22/2019 Marital Status Information not available 06/10/2021 Sex: Unknown Functional Status Question Answer Note LastModified by Organizat ion Details LastModified Time What is your exercise level? None None (Sedentary) Information not available 10/22/2019 Mental Status None recorded. Family History Relationship Description Onset Age of this Age Resolved Age Notes Father Family history of Blood disorder 50 Clots in legs Father Carcinoma in situ of urinary bladder 50 Bladder Carcinom a In Situ Father Disorder of bone and articular cartilage Osteoporosis Father Old myocardial infarction Heart Attack Father Hyperlipidemia High Cholesterol / Hyperlipidemia Father Family history of Cardiovascular disease Heart disease Mother Disorder of thyroid gland Thyroid Disease Mother Arthritis Arthritis, Rheumatoid Mother Disorder of bone and articular cartilage Osteoporosis Mother Family history of Cardiovascular disease Heart disease Mother Family history of Blood disorder Clots in legs Sister Family history of Cardiovascular disease Heart disease Sister Family history of diabetes mellitus Diabetes Maternal Grandfather Family history of malignant neoplasm of gastrointestinal tract Cancer Colon Paternal Grandmother Family history of stroke Stroke Brother Family history of Cardiovascular disease Heart disease Medical History Condition Response Psych- Anxiety Disorder Y Endocrinology- Osteoporosis N Urology- Recurrent Urinary Tract Infecti ons Y Cardiology- High Blood Pressure N Pulmonary-Other Rheumatology- Arthritis N Gynecological History Statement/Question Response Date of Last Pap Smear 12/06/2016 Date of Last Mammogram 09/25/2021 Date of Last Colonoscopy 06/12/2016 Date of last bone density 09/25/2021 Obstetrics History GPAL:G 3 P 3 0 0 3 Type Value Multiple Births 0 Full Term 3 Induced 0 Spontaneous 0 Premature 0 Living 3 Ectopics 0 Total 3 Past Encounters Encounter ID Performer Location Encounter Start Date Encounter Closed Date Diagnosis/Indication Diagnosis SNOMED-CT Code Diagnosis ICD10 Code [id number] ALLISON SIMMONS MD [id number] [place]_[address] ,[address] [place] [id number] 06/10/2021 15:10:29 06/15/2021 09:58:52 Screening for disorder 159398935 Z13.9 Abnormal v aginal bleeding 504681058 N93.9 [id number] ALLISON SIMMONS MD [id number] [facility]D[place]_ED [place]UN[place] [address] [place] [address] 09/17/2021 16:03:08 09/28/2021 09:19:19 Gynecologic examination 73162149 Z01.419 Giant cell arteritis with polymyalgia rheumatica 706336215 M31.5 Health Concerns Section Related Observation LastModified by Organization Detai ls LastModified Time None Recorded Concern Status LastModified by Organization Details LastModified Time None Recorded Advance Directives Directive None Recorded Payers Encounter Date Sequence Insurance Name Policy Number Policy Florian Covered Member ID Florian Member ID Guarantor Name 06/10/2021 1 [employer] - OPEN ACCESS CHOICE (HMO) [id number] Gloria Bonilla [id number] Gloria Bonilla 09/17/2021 1 [employer] - OPEN ACCESS CHOICE (HMO) [id number] Gloria Taborlund [id number] Gloria Bonilla Notes Date Note Type Note Provider Name and Address Organization Details Recorded Time 06/10/2021 text/html HPI Notes: Mrs. Navarrete presents for office today as a new patient problem visit for evaluation of postmenopausal vaginal bleeding. She underwent a spinal fusion on April 27, 2021 at [facility] in [place]. During that hospitalization seen apparently had a traumatic catheterization which was very painful. She subsequently had an episode of vaginal bleeding that was uncertainly related to the traumatic catheterization. The patient did have a CT scan of the abdomen and pelvis that showed a myomatous uterus and nonspecific thickening of the bladder. This was followed with a pelvic ultrasound which showed the uterus to be 7 cm x 5 cm x 3 cm. No discrete measurable fibroids, the largest being 2 cm. The endometrium was 3 mm with no evidence of any endometrial lesions. The ovaries were not visualized. There was no free pelvic fluid. The patient then fractured her ankle posteriorly after going out in public her spinal fusion. She wears a cast today for this fracture. The patient reports that she has had no residual bleeding since that episode after she has no pelvic pain or any other concerns. She does not take hormone [place] [address] [facility],[address], [place], [address], [facility] - [employer] PA[employer] WORK[employer] 06/13/2021 13:14:24 09/17/2021 text/html HPI Notes: Gloria presents for office today for her annual gynecologic examination. She recently underwent back surgery and has developed neurologic and urologic issues particularly and numbness sensation and an inability to feel the need to empty her bladder. She underwent a back fusion procedure and during the recovery. Fell and broke her foot. This has significantly occupied her medical history over the last year or so. In a separate issue, she was evaluated for a severe headache, evaluated by ophthalmology and was and has been diagnosed with giant cell arteritis with polymyalgia rheumatica. She has been on high-dose prednisone and is currently being tapered. She does have her routine blood work performed through Dr. Wells's office. Gloria's last Pap smear was in 2017 and she is 65 years of age. A Pap smear with cotesting was therefore performed today. She is due for a bilateral screening mammogram. Bone density [place] [address] [facility],[address], [place], [address], [facility] - [employer] 09/27/2021 22:09:48 OBGyn Episode Ob Episode Information Episode Created Date Number of Fetuses Patient Bloodtype Patient rh Status Prepregnancy Weight lbs Domestic Partner Domestic Partner Phone Father Name Lead Nuclear Medicine Technologist Status 06/11/19 22 1 CLOSED Fetus Data First Name Last Name Admitted to NICU Weight (g) Sex Living Outcome Pediatric Complications Fetus ID Race Codes Race Delivery Type [id number] Torey Calculation Initial Torey Date Initial Exam Date Initial Exam Provider Initial Ultrasound Date Last Menstrual Period Date Ultra Sound Weeks Gestation 0 Eighteen To Twenty Week Torey Update Ultra Sound Date Fundal Height At Umbil Quickening Date Ultra Sound Latest Weeks Gestation Final Torey Confirmed By Final Torey Confirmed Date Final Torey Date Ultra Sound Latest Days Gestation 0 0 Menstrual History Last Menstrual Date Menses Monthly On Bcp Conception Prior Menses Frequency Hcg Plus Date Menarche Onset Age Delivery Information Delivery Date Delivery Type Labor Anesthesia Weeks Gestation Incision Type Labor Labor Length Hrs Delivered By Post Complications Tubal Sterilization Discharge Date Comments 6 Discharge Information Feeding Method Contraceptive Method Maternal HG B and HCT Levels Ob Episode Information Episode Created Date Number of Fetuses Patient Bloodtype Patient rh Status Prepregnancy Weight lbs Domestic Partner Domestic Partner Phone Father Name Lead Nuclear Medicine Technologist Status 06/11/19 22 1 CLOSED Fetus Data First Name Last Name Admitted to NICU Weight (g) Sex Living Outcome Pediatric Complications Fetus ID Race Codes Race Delivery Type [id number] Torey Calculation Initial Torey Date Initial Exam Date Initial Exam Provider Initial Ultrasound Date Last Menstrual Period Date Ultra Sound Weeks Gestation 0 Eighteen To Twenty Week Torey Update Ultra Sound Date Fundal Height At Umbil Quickening Date Ultra Sound Latest Weeks Gestation Final Torey Confirmed By Final Torey Confirmed Date Final Torey Date Ultra Sound Latest Days Gestation 0 0 Menstrual History Last Menstrual Date Menses Monthly On Bcp Conception Prior Menses Frequency Hcg Plus Date Menarche Onset Age Delivery Information Delivery Date Delivery Type Labor Anesthesia Weeks Gestation Incision Type Labor Labor Length Hrs Delivered By Post Complications Tubal Sterilization Discharge Date Comments 3 Discharge Information Feeding Method Contraceptive Method Maternal HG B and HCT Levels Ob Episode Information Episode Created Date Number of Fetuses Patient Bloodtype Patient rh Status Prepregnancy Weight lbs Domestic Partner Domestic Partner Phone Father Name Lead Nuclear Medicine Technologist Status 06/11/19 22 1 CLOSED Fetus Data First Name Last Name Admitted to NICU Weight (g) Sex Living Outcome Pediatric Complications Fetus ID Race Codes Race Delivery Type [id number] Torey Calculation Initial Torey Date Initial Exam Date Initial Exam Provider Initial Ultrasound Date Last Menstrual Period Date Ultra Sound Weeks Gestation 0 Eighteen To Twenty Week Torey Update Ultra Sound Date Fundal Height At Umbil Quickening Date Ultra Sound Latest Weeks Gestation Final Torey Confirmed By Final Torey Confirmed Date Final Torey Date Ultra Sound Latest Days Gestation 0 0 Menstrual History Last Menstrual Date Menses Monthly On Bcp Conception Prior Menses Frequency Hcg Plus Date Menarche Onset Age Delivery Information Delivery Date Delivery Type Labor Anesthesia Weeks Gestation Incision Type Labor Labor Length Hrs Delivered By Post Complications Tubal Sterilization Discharge Date Comments 0 Discharge Information Feeding Method Contraceptive Method Maternal HG B and HCT Levels
--- OUTSIDE RECORDS SUMMARY | 2023-11-17 13:01 | XMS_ITS | Referral Summary ---
Author Organization [facility] Address [address] [place] [address] Care Team Providers Care Scroll Machine Operator Name Role Phone Unknown, Md Unavailable Unavailable [...] by mouth once daily. Active VIT D3-FOLIC [id number] ORAL Take by mouth. Active cholecalciferol, vitamin [...] other manifestation 09/10/2021 Overview (09/10/2021): treated at [place] Giant cell arteritis 09/10/2021 Overview (10/08/2021): Discussed [...] on file Medical Devices Implanted Type Area Hazardous Materials Handler Device Identifier Shelf Expiration Date Model / Serial / Lot [facility] - [id number] Implanted:Qty: 1 on 12/27/2022 by Hugo Nunes MD at [facility] Bone N/A: Spine Lumbar [employer] 11/16/2025 [id number] / [id number] / Set Scr Spnl Dia5.5/6mm [facility] - [id number] Implanted:Qty: 2 on 12/27/2022 by Hugo Nunes MD at [facility] Screw/A nchor N/A: Spine Lumbar [employer] [id number] / / Magnetos Putty 5cc Implanted:Qty: 1 on 12/27/2022 by Hugo Nunes MD at [facility] N/A: Spine Lumbar 07/12/2025 [id number] / / [id number] Description:MFTR: [employer] Spacer Ti 6dg 23w [id number] Implanted:Qty: 1 on 12/27/2022 by Hugo Nunes MD at [facility] N/A: Spine Lumbar [employer] 07/06/2030 [id number] / / [id number] Miniplate Small [id number] Implanted:Qty: 1 on 12/27/2022 by Hugo Nunes MD at [facility] N/A: Spine Lumbar [employer] 05/12/2030 [id number] / / [id number] Bone Screw Ls 5.0x40mm Implanted:Qty: 1 on 12/27/2022 by Hugo Nunes MD at [facility] N/A: Spine Lumbar [employer] 01/15/2029 [id number] / / [id number] Screw 5.5/6.0 Sv Ats 5.5x50 Implanted:Qty: 1 on 12/27/2022 by Hugo Nunes MD at [facility] N/A: Spine Lumbar [employer] [id number] / / Procedures Procedure Name Priority Date/Time Associated Diagnosis Comments COMPREHENSIVE METABOLIC PANEL STAT 12/27/2022 6:13 PM CDT from Last 3 Months or Most Recently Relevant to Health Maintenance Results * (ABNORMAL) Comprehensive Metabolic Panel (12/27/2022 6:13 PM CDT) Sodium 135(L) 136 - 145 mmol/L ATELLICA ANALYZER 12/27/2022 6:55 PM CDT [facility] Potassium 4.0 3.4 - 5.1 mmol/L ATELLICA ANALYZER 12/27/2022 6:55 PM CDT [facility] Comment:Interpret with cauti on, specimen slightly hemolyzed. Results may be affected Chloride 99 98 - 108 mmol/L ATELLICA ANALYZER 12/27/2022 6:[address] [facility] Carbon Dioxide 25 20 - 31 mmol/L ATELLICA ANALYZER 12/27/2022 6:[address] [facility] BUN (Urea Nitro) 18 9 - 23 mg/dL ATELLICA ANALYZER 12/27/2022 6:[address] [facility] Creatinine 0.55 0.55 - 1.02 mg/dL ATELLICA ANALYZER 12/27/2022 6:[address] [facility] Est GFR (CKD-EPI) >60.00 >60.00 mL/min/1. 73m2 ATELLICA ANALYZER 12/27/2022 6:[address] [facility] Comment:Calculation based on the Chronic Kidney Disease Epidemiology Collaboration (CKD-EPI) equation refit without adjustment for race. Glucose 286(H) 74 - 106 mg/dL ATELLICA ANALYZER 12/27/2022 6:[address] [facility] Calcium, Serum 9.2 8.7 - 10.4 mg/dL ATELLICA ANALYZER 12/27/2022 6:[address] [facility] Anion Gap 11.0 0.0 - 15.0 mmol/L ATELLICA ANALYZER 12/27/2022 6:[address] [facility] Albumin 3.4 3.4 - 5.0 g/dL ATELLICA ANALYZER 12/27/2022 6:[address] [facility] Bilirubin-Total 0.3 0.3 - 1.2 mg/dL ATELLICA ANALYZER 12/27/2022 6:[address] [facility] Alkaline Phosphatase 104 46 - 116 U/L ATELLICA ANALYZER 12/27/2022 6:[address] [facility] Protein Total 6.9 5.7 - 8.2 g/dL ATELLICA ANALYZER 12/27/2022 6:[address] [facility] AST (SGOT) 66(H) 13 - 40 U/L ATELLICA ANALYZER 12/27/2022 6:[address] [facility] ALT 72(H) 7 - 40 U/L ATELLICA ANALYZER 12/27/2022 6:[address] [facility] Blood 12/27/2022 6:13 PM CDT 12/27/2022 6:29 PM CDT Douglas Ndiaye MD CHEMISTRY ORDERABLE [facility] [address] [address] from Last 3 Months or Most Recently Relevant to Health Maintenance Advance Directives For more information, please contact: [phone] * Full Code (Latest Code Status on File) Date Activated Date Inactivated Comments 12/27/2022 3:48 PM 12/28/2022 8:53 PM Question Answer Comments How was code status determined? Physician Giovany rosenberg * Full Code Date Activated Date Inactivated Comments 12/27/2022 5:32 AM 12/27/2022 11:38 AM Question Answer Comments How was code status determined? Physician Giovany rosenberg to confirm in preop Care Teams Scroll Machine Operator Relationship Specialty Start Date End Date Brisa, NO ADDRESS/PHONE/FAX AFFILIATED PCP - [facility] 09/21/21 Clinic, Not Listed PCP - General 12/20/22
--- OUTSIDE RECORDS SUMMARY | 2023-11-17 13:01 | XMS_ITS | Encounter Summary ---
Author Organization [facility] Address [address] [place] [address] Care Team Providers Care Amr Physician Name Role Phone Vincenzo Grimaldo MD Primary Care Provider [phone] Arias Salvador MD Primary Care Provider [phone] Ref-Primary, Physician Primary Care Provider Jennifer Gastelum MD Unavailable [phone] Reason for Visit * Reason Onset Date Comments Patient Request 09/20/2008 question Encounter Details Date Type Department Care Team (Late st Contact Info) Description 07/23/2008 MyC Medical Advice [address] [place] [address] Vincenzo Grimaldo MD [address] [place], [place] [address] Patient Request (question) Social History Tobacco Use [...] on filedocumented in this encounter Care Teams Amr Physician Relationship Specialty Start Date End Date Vincenzo Grimaldo MD PCP - General 07/07/07 02/24/14 Arias Salvador MD [facility] [address] [place] [address] PCP - General 02/25/14 04/28/17 No Ref-Primary, Physician PCP - General 04/29/17 Jennifer Gastelum MD [address] [place] [address] Assigned Surgical Provider 11/21/21 documented as of this encounter
--- OUTSIDE RECORDS SUMMARY | 2023-11-17 13:01 | XMS_ITS | Clinical Summary ---
Author Organization [facility] Address [address] [place] [address] Care Team Providers Care Junior Database Administrator Name Role Phone Unknown, Md Unavailable Unavailable [...] by mouth once daily. Active VIT D3-FOLIC [id number] ORAL Take by mouth. 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 Overview (10/08/2021): Discussed [...] 1-dose 60+ series) 2016 HgbA1C 08/14/2022 02/13/2022 Mammogram Screening 09/26/2023 09/25/2021, 10/15/2013, 09/25/2012, Additional history exists Adult Tetanus Booster 10/03/2023 10/02/2013 , 09/24/2013, 08/22/2009 COVID-19 Vaccine (2022-2 4 season) 2023 07/30/2022, 12/17/2021, 07/06/2021, Additional history exists Influenza Vaccine (#1) 2023 , 01/25/2020, 04/08/2019, Additional history exists Yearly Review of HCD 11/22/2023 11/22/2022 Creatinine 12/28/2023 12/27/2022, 12/0 05/2021, 07/19/2021, Additional history exists Zoster Vaccine Completed 01/16/2018, 10/03/2017 Medical Devices Implanted Type Area Grocery Clerk Selling Device Identifier Shelf Expiration Date Model / Serial / Lot Putty [place] 5cc - [id number] Implanted:Qty: 1 on 12/27/2022 by Hugo Nunes MD at [facility] Bone N/A: Spine Lumbar [employer] 11/16/2025 [id number] / [id number] / Set Scr Spnl Dia5.5/6mm [facility] - [id number] Implanted:Qty: 2 on 12/27/2022 by Hugo Nunes MD at [facility] Screw/A nchor N/A: Spine Lumbar [employer] [id number] / / Magnetos Putty 5cc Implanted:Qty: 1 on 12/27/2022 by Hugo Nunes MD at [facility] N/A: Spine Lumbar 07/12/2025 [id number] / / [id number] Description:MFTR: [employer] Spacer Ti 6dg 23w [id number] Implanted:Qty: 1 on 12/27/2022 by Hugo Nunes MD at [facility] N/A: Spine Lumbar [employer] Inc 07/06/2030 [id number] / / [id number] Miniplate Small [id number] Implanted:Qty: 1 on 12/27/2022 by Hugo Nunes MD at [facility] N/A: Spine Lumbar [employer] Inc 05/12/2030 [id number] / / [id number] Bone Screw Ls 5.0x40mm Implanted:Qty: 1 on 12/27/2022 by Hugo Nunes MD at [facility] N/A: Spine Lumbar [employer] 01/15/2029 [id number] / / [id number] Screw 5.5/6.0 Sv Ats 5.5x50 Implanted:Qty: 1 on 12/27/2022 by Hugo Nunes MD at [facility] N/A: Spine Lumbar [employer] Inc [id number] / / Procedures Procedure Name Priority Date/Time Associated Diagnosis Comments COMPREHENSIVE METABOLIC PANEL STAT 12/27/2022 6:13 PM CDT from Last 3 Months or Most Recently Relevant to Health Maintenance Results * (ABNORMAL) Comprehensive Metabolic Panel (12/27/2022 6:13 PM CDT) Sodium 135(L) 136 - 145 mmol/L ATELLICA ANALYZER 12/27/2022 6:55 PM CDT [facility] Potassium 4.0 3.4 - 5.1 mmol/L ATELLICA ANALYZER 12/27/2022 6:55 PM CDT [facility] Comment:Interpret with cauti on, specimen slightly hemolyzed. Results may be affected Chloride 99 98 - 108 mmol/L ATELLICA ANALYZER 12/27/2022 6:55 PM CDT [facility] Carbon Dioxide 25 20 - 31 mmol/L ATELLICA ANALYZER 12/27/2022 6:55 PM CDT [facility] BUN (Urea Nitro) 18 9 - 23 mg/dL ATELLICA ANALYZER 12/27/2022 6:55 PM CDT [facility] Creatinine 0.55 0.55 - 1.02 mg/dL ATELLICA ANALYZER 12/27/2022 6:55 PM CDT [facility] Est GFR (CKD-EPI) >60.00 >60.00 mL/min/1. 73m2 ATELLICA ANALYZER 12/27/2022 6:55 PM CDT [facility] Comment:Calculation based on the Chronic Kidney Disease Epidemiology Collaboration (CKD-EPI) equation refit without adjustment for race. Glucose 286(H) 74 - 106 mg/dL ATELLICA ANALYZER 12/27/2022 6:55 PM CDT [facility] Calcium, Serum 9.2 8.7 - 10.4 mg/dL ATELLICA ANALYZER 12/27/2022 6:55 PM CDT [facility] Anion Gap 11.0 0.0 - 15.0 mmol/L ATELLICA ANALYZER 12/27/2022 6:55 PM CDT [facility] Albumin 3.4 3.4 - 5.0 g/dL ATELLICA ANALYZER 12/27/2022 6:55 PM CDT [facility] Bilirubin-Total 0.3 0.3 - 1.2 mg/dL ATELLICA ANALYZER 12/27/2022 6:55 PM CDT [facility] Alkaline Phosphatase 104 46 - 116 U/L ATELLICA ANALYZER 12/27/2022 6:55 PM CDT [facility] Protein Total 6.9 5.7 - 8.2 g/dL ATELLICA ANALYZER 12/27/2022 6:55 PM CDT [facility] AST (SGOT) 66(H) 13 - 40 U/L ATELLICA ANALYZER 12/27/2022 6:55 PM CDT [facility] ALT 72(H) 7 - 40 U/L ATELLICA ANALYZER 12/27/2022 6:55 PM CDT [facility] Blood 12/27/2022 6:13 PM CDT 12/27/2022 6:29 PM CDT Douglas Ndiaye MD CHEMISTRY ORDERABLE [facility] [address] [address] from Last 3 Months or Most Recently Relevant to Health Maintenance Advance Directives For more information, please contact: [phone] * Full Code (Latest Code Status on File) Date Activated Date Inactivated Comments 12/27/2022 3:48 PM 12/28/2022 8:53 PM Question Answer Comments How was code status determined? Physician Giovany rosenberg * Full Code Date Activated Date Inactivated Comments 12/27/2022 5:32 AM 12/27/2022 11:38 AM Question Answer Comments How was code status determined? Physician Giovany rosenberg to confirm in preop Care Teams Junior Database Administrator Relationship Specialty Start Date End Date Unknown, NO ADDRESS/PHONE/FAX AFFILIATED PCP - Primary Care Clinic 09/21/21 Clinic, Not Listed PCP - General 12/20/22
--- OUTSIDE RECORDS SUMMARY | 2023-11-17 13:01 | XMS_ITS | Encounter Summary ---
Author Organization [facility] Address [address] [place] [address] Care Team Providers Care Testing Shaking Shipping Name Role Phone Elsewhere, Pcp Primary Care [...] Consult requested by: 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 Id: [id number] Status: Fnl documented in this encounter Plan of Treatment Not on file documented as of this encounter Visit Diagnoses Not on filedocumented in this encounter Additional Health Concerns Infection Onset Date Last Indicated Resolved Time COVID19 Pending 01/26/2020 01/26/2020 01/27/2020 6 :42 PM CLAIMS ACCOUNT SPECIALIST COVID19 Pending 03/24/2020 03/24/2020 03/24/2020 1 1:07 PM CLAIMS ACCOUNT SPECIALIST COVID19 Pending 04/21/2020 04/21/2020 04/21/2020 2 :23 PM CLAIMS ACCOUNT SPECIALIST COVID19 Pending 04/21/2020 04/21/2020 04/22/2020 3 :12 PM CLAIMS ACCOUNT SPECIALIST COVID19 Pending 05/14/2020 05/14/2020 05/14/2020 1 0:35 PM CLAIMS ACCOUNT SPECIALIST COVID19 05/14/2020 05/14/2020 06/03/2020 4:46 AM CDT COVID19 Pending 12/26/2020 12/26/2020 12/27/2020 1 :21 PM CDT COVID19 Pending 01/05/2021 01/05/2021 01/05/2021 4 :41 PM CDT COVID19 Pending 01/05/2021 01/05/2021 01/07/2021 2 :03 AM CDT COVID19 Pending 01/30/2021 01/30/2021 01/30/2021 1 1:38 PM CLAIMS ACCOUNT SPECIALIST COVID19 01/30/2021 01/30/2021 02/19/2021 5:07 AM CLAIMS ACCOUNT SPECIALIST COVID19 Pending 02/12/2022 02/12/2022 02/12/2022 8 :29 PM CLAIMS ACCOUNT SPECIALIST documented as of this encounter Care Teams Testing Shaking Shipping Relationship Specialty Start Date End Date Elsewhere, Pcp PCP - General Internal Medicine 11/21/21 documented as of this encounter
--- OUTSIDE RECORDS SUMMARY | 2023-11-17 13:01 | XMS_ITS | Encounter Summary ---
Author Organization [facility] Address [address] [place] [address] Care Team Providers Care Tester Printed Circuit Boards Name Role Phone Vincenzo Grimaldo MD Primary Care Provider Arias Salvador MD Primary Care Provider [phone] Ref-Primary, Physician Primary Care Provider Jennifer Gastelum MD Unavailable [phone] Encounter Details Date Type Department Care Team (Late st Contact Info) Description 09/10/2009 MyC Medical Advice [address] [place] [address] Vincenzo Grimaldo MD [address] [place] [address] Social History Tobacco Use Types [...] on filedocumented in this encounter Care Teams Tester Printed Circuit Boards Relationship Specialty Start Date End Date Vincenzo Grimaldo MD PCP - General 07/07/07 02/24/14 Arisa Salvador MD [facility] [address] [place] [address] PCP - General 02/25/14 04/28/17 No Ref-Primary, Physician PCP - General 04/29/17 Jennifer Gastelum MD [address] [facility] [address] [place] [address] Assigned Surgical Provider 11/21/21 documented as of this encounter
== END 2023-11-17 12:58 | disposition home or self-care (01) ==
LOC: RAD 12:58
PROVIDERS: PCP Family Medicine; Visit Provider Family Medicine
DX: S22.080S Wedge compression fracture of T11-T12 vertebra, sequela (principal); Z78.0 Asymptomatic menopausal state
CPT/HCPCS: 77080

== ENCOUNTER 2024-10-31 11:15 | Outpatient (CLI) | payer MEDICARE, SELFPAY | END 2024-10-31 11:16 | disposition home or self-care (01) | PROVIDERS: PCP Family Medicine; Visit Provider Family Medicine | DX: I10 Essential (primary) hypertension (principal); E78.5 Hyperlipidemia, unspecified; E13.9 Other specified diabetes mellitus without complications; Z13.29 Encounter for screening for other suspected endocrine disorder; S22.080D Wedge compression fracture of T11-T12 vertebra, subsequent encounter for fracture with routine healing | CPT/HCPCS: 80048; 80061; 82306; 82607; 84443 ==